=== PATIENT | female | born 1945 | race Caucasian/White ===

== ENCOUNTER 2019-10-05 00:16 | Emergency (ER) | payer OTHER, MEDICAID, SELFPAY ==
[2019-10-05] VITALS (16 sets, daily range): BP systolic 139–156; BP diastolic 56–87; PULSE 81–95; RESP 11–21; TEMP 36.4–36.7; O2SAT 97–100
--- NOTE | ~2019-10-05 | CT_ITS ---
EXAMINATION: CT abdomen pelvis wo con DATE: 10/05/2019 01:12 INDICATION: Generalized abdominal pain. Diarrhea. History of ischemic bowel. (Status post appendectom y and cholecystectomy) TECHNIQUE: Computed tomography (CT) of the abdomen and pelvis was performed without intravenous contr ast. Automated exposure control and iterative reconstruction technique were employed. Exam dose: 150 5.68 mGy-cm total exam DLP. COMPARISON: 03/07/2019 CT abdomen pelvis with IV contrast material FINDINGS: Mild discoid atelectasis or scarring of the lingula. No infiltrate or consolidation in the included lower lung zones. Status post sternotomy. Coronary artery atherosclerosis. No pericardial or pleural effusion. Status post cholecystectomy. No hepatic, splenic, pancreatic, and adrenal space-occupying mass lesion is evident. Small exophytic posterior lower pole right renal cyst. There is no urinary tract calculus or hydroureteronephrosis. There is extensive abdominal aortic calcification including prominent calcifications at the origins o f the celiac and superior mesenteric artery and inferior mesenteric artery. No abdominal aortic aneur ysm. Mild diverticulosis of the left colon; no CT evidence of diverticulitis. No bowel obstruction or intr aperitoneal free air. Status post hysterectomy. The urinary bladder is unremarkable. There is moderate anterior wedge compression fracture deformity and vertebroplasty at L2. Diffuse idi opathic skeletal hyperostosis of the thoracic spine. IMPRESSION: Status post cholecystectomy Status post appendectomy Mild diverticulosis of left colon; no CT evidence of diverticulitis Reviewed, dictated and finalized at [facility]. Reviewed, dictated and finalized at [facility].
--- NOTE | ~2019-10-05 | CT_ITS ---
EXAMINATION: CT brain wo con DATE: 10/05/2019 01:12 INDICATION: Syncopal episode. TECHNIQUE: Computed tomography (CT) of the head was performed without intravenous contrast. The mA wa s adjusted according to patient size. Iterative reconstruction technique was employed. Exam dose: 60 5.33 mGy-cm total exam DLP. COMPARISON: 03/13/2019 MRI brain/brainstem 03/11/2019 and 03/09/2019 CT brain FINDINGS: Bilateral vertebral artery, basilar artery and bilateral carotid siphon internal carotid ar kavitha calcifications. There is nonspecific diminished attenuation of the cerebral white matter, likely due to chronic small vessel ischemic changes. Small chronic left basal ganglia lacunar infarct. There is mild to moderate cerebral atrophy. No intracranial mass lesion or hemorrhage, midline shift or mass effects is evident. No subdural or e pidural hematoma is detected. Included mastoid air cells and paranasal sinuses are normally developed and aerated. Bilateral hyperostosis frontalis interna, which is not likely of any clinical significance. No fractu re or bone destruction of the cranial vault. IMPRESSION: Cerebral atherosclerosis and chronic small vessel ischemic changes of the cerebral white matter Small left basal ganglia lacunar infarct Reviewed, dictated and finalized at [facility]. Reviewed, dictated and finalized at [facility].
--- NOTE | ~2019-10-05 | XR_ITS ---
XR chest 2V DATE: 10/05/2019 01:17 INDICATION: Syncope TECHNIQUE: AP and lateral views COMPARISON: 01/17/2019 PA and lateral chest FINDINGS: Status post sternotomy and probable coronary artery bypass graft surgery. Normal heart size . Aortic calcification. No pulmonary infiltrate or consolidation, pleural effusion or pulmonary vascular congestion or pneumo thorax. Diffuse osteopenia. Vertebroplasty at L2 compression fracture. Diffuse idiopathic skeletal hyperostos is of the thoracic spine. Old healed posterolateral right sixth rib fracture. Surgical clips, right upper quadrant, consistent with cholecystectomy. IMPRESSION: Status post sternotomy/CABG No active cardiopulmonary disease or significant change since 01/17/2019 Reviewed, dictated and finalized at [facility].
--- NOTE | 2019-10-05 00:17 | ED.SYNCOPE ---
HPI - Syncope General Chief Complaint: Syncope Stated Complaint: syncopal Time Seen by Provider: 10/05/19 00:18 Source: patient, EMS and RN notes reviewed Mode of arrival: EMS Limitations: no limitations History of Present Illness HPI narrative: Pt is a 73 y/o female who presents to the ED via EMS with c/o syncopal episode happening this evening. She notes that she has had bad diarrhea recently. Pt states that she was having a BM this evening, when she suddenly became dizzy and lost consciousness. According to EMS, the pt's family states that she has a Hx of similar episodes. Pt also reports diffuse ABD pain, but denies any vomiting, fever, hematuria, dysuria, or CP. MD complaint: loss of consciousness Prodromal symptoms: other (dizziness) Context: during exertion (while having a BM) Current symptoms: abdominal pain (diffuse ABD pain) and other (diarrhea) History: previous syncopal episode Related Data Home Medications Medication Instructions Recorded Confirmed aspirin 325 mg PO DAILY 06/01/19 06/01/19 diltiazem HCl 180 mg PO DAILY 06/01/19 06/01/19 metoprolol succinate 50 mg PO DAILY 06/01/19 06/01/19 pantoprazole [Protonix] 40 mg PO QAM 06/01/19 06/01/19 amitriptyline 100 mg tablet 100 mg PO HS 09/26/19 atorvastatin 20 mg tablet 20 mg PO DAILY 09/26/19 blood sugar diagnostic #10 each 09/26/19 cholecalciferol (vitamin D3) 50 2,000 unit PO DAILY 09/26/19 mcg (2,000 unit) capsule donepezil 10 mg tablet 10 mg PO .daily in evening tablet 09/26/19 insulin glargine 100 unit/mL (3 See Rx Instructions .ROUTE .COMPLEX 09/26/19 mL) subcutaneous pen insulin lispro 100 unit/mL See Rx Instructions .ROUTE .COMPLEX 09/26/19 subcutaneous pen nitroglycerin 0.4 mg sublingual See Rx Instructions .ROUTE 09/26/19 tablet .COMPLEX PRN pen needle, diabetic 31 gauge x #1,200 each 09/26/1912/08 phenazopyridine 100 mg tablet See Rx Instructions .ROUTE .COMPLEX 09/26/19 Allergies Allergy/AdvReac Type Severity Reaction Status Date / Time ranolazine Allergy Intermediate Unknown Verified 10/05/19 01:15 gabapentin Allergy Mild Confusion Verified 10/05/19 01:15 cyclobenzaprine Allergy Unknown Unknown Verified 10/05/19 01:15 fentanyl Allergy Unknown Unknown Verified 10/05/19 01:15 Iodinated Contrast Media Allergy Unknown Unknown Verified 10/05/19 01:15 NSAIDS (Non-Steroidal Allergy Unknown Unknown Verified 10/05/19 01:15 Anti-Inflamma penicillin V Allergy Unknown Unknown Verified 10/05/19 01:15 Penicillins Allergy Unknown Unknown Verified 10/05/19 01:15 Review of Systems Review of Systems: Narrative: CONSTITUTIONAL: Denies fever, chills, or sweats. CARDIOVASCULAR: Denies chest pain, palpitations, or edema. RESPIRATORY: Denies cough or dyspnea. GASTROINTESTINAL: Reports diffuse abdominal pain and diarrhea. Denies nausea or vomiting. GENITOURINARY: Denies dysuria or hematuria. NEUROLOGIC: Denies headache, numbness, or weakness. Reports dizziness and syncope. All systems reviewed & are unremarkable except as noted in HPI and below PMFSH Past Medical History Medical History Anemia Anxiety Back pain CAD (coronary artery disease) Cataracts, bilateral CHF (congestive heart failure) Colitis Crohn's disease Depression Diabetes mellitus DVT (deep venous thrombosis) Fibromyalgia Gastrointestinal ulcer GERD (gastroesophageal reflux disease) History of angina HLD (hyperlipidemia) HTN (hypertension) Hypothyroidism IBS (irritable bowel syndrome) Kidney stones TIA (transient ischemic attack) UTI (urinary tract infection) Surgical History Surgical History History of bladder surgery History of hysterectomy History of right knee joint replacement Hx of appendectomy Hx of CABG Hx of cardiac catheterization Hx of cholecystectomy Hx of spinal surgery Social History Social History Smoking
--- NOTE | 2019-10-05 00:20 | ECG_ITS ---
Measurements Intervals [place] Rate: 87 P: 48 WI: 221 QRS: 44 QRSD: 82 T: 65 QT: 357 QTc: 431 Interpretive Statements SINUS RHYTHM WITH FIRST DEGREE AV BLOCK CANNOT RULE OUT SEPTAL INFARCT, AGE INDETERMINATE BORDERLINE ST-T WAVE ABNORMALITY- LATERAL LEADS ABNORMAL ECG Electronically Signed On 10-05-2019 7:01:16 CDT by Naldo Tamayo D.O.
[2019-10-05] MEDS: ONDANSETRON INJ 4 MG/2 ML VIAL IV PUSH (00:33)
[2019-10-05] MEDS: SODIUM CHLORIDE 0.9% IV 1,000 ML 999 ML IV CONT (00:33)
[2019-10-05 01:03] LABS: Basophils Absolute Auto 0.1 K/mm3 (0.0-0.1); Basophils Percent Auto 0.7 % (0.2-1.2); Eosinophils Absolute Auto 0.3 K/mm3 (0-0.3); Eosinophils Percent Auto 2.5 % (0-4.4); Hematocrit 39.5 % (37.0-47.0); Hemoglobin 12.6 g/dL (12.0-15.0); Immature Granulocyte Absolute 0.09 K/mm3 (0.00-0.031); Immature Granulocyte Percent A 0.7 % (0-0.5); Lymphocytes Absolute Auto 2.57 K/mm3 (0.9-3.2); Lymphocytes Percent Auto 19.1 % (18.3-44.2); Mean Corpuscular HGB Conc 31.9 g/dl (32-36); Mean Corpuscular Hemoglobin 27.5 pg (26-34); Mean Corpuscular Volume 86.1 fl (80-100); Mean Platelet Volume 9.8 fl (7.4-10.4); Monocytes Absolute Auto 0.9 K/mm3 (0.1-0.6); Monocytes Percent Auto 6.8 % (2.6-8.5); Neutrophils Absolute Auto 9.4 K/mm3 (1.3-6.7); Neutrophils Percent Auto 70.2 % (45.5-73.1); Platelet Count Result 415 k/mm3 (150-375); Red Blood Count 4.59 M/mm3 (4.2-5.4); Red Cell Distribution Width 14.6 % (11.5-14.5); White Blood Count 13.4 K/mm3 (4.5-10.0)
[2019-10-05 01:04] LABS: Partial Thromboplastin Time 24.7 SECONDS (22.3-36.8); Prothrombin Time 12.4 Seconds (11.1-14.7)
[2019-10-05 01:06] LABS: Alanine Aminotransferase 19 U/L (4-35); Albumin Level 3.9 g/dL (3.5-5.1); Alkaline Phosphatase 78 U/L (38-126); Aspartate Amino Transferase 26 U/L (14-36); Bilirubin,Total 0.3 mg/dL (0.2-1.3); Blood Urea Nitrogen 14 mg/dL (7-17); Calcium 9.1 mg/dL (8.4-10.2); Carbon Dioxide 32 mmol/L (22-30); Chloride 98 mmol/L (98-107); Estimated CRCL calculation 49 ml/min; Estimated Glomerular Filt Rate 54; Glucose 205 mg/dL (65-105); Lipase 128 U/L (23-300); Potassium 3.7 mmol/L (3.4-5.0); Sodium 135 mmol/L (137-145)
[2019-10-05 01:17] LABS: Troponin I < 0.012 ng/mL (0.000-0.034)
[2019-10-05 01:19] LABS: Add Urine Microscopic? NO; Appearance Urine Clear (Clear); Bilirubin Urine Negative (Negative); Blood Urine Negative (Negative); Color Urine Yellow (Yellow); Glucose Urine UA Negative (Negative); Ketones Urine Negative (Negative); Leukocyte Esterase Ur Negative LEU/UL (Negative); Nitrate Urine Negative (Negative); Protein Urine Negative (Negative); Specific Grav Ur 1.016 (1.001-1.035); Urobilinogen Urine Negative mg/dL (<2.0)
[2019-10-05 03:33] LABS: Troponin I < 0.012 ng/mL (0.000-0.034)
== END 2019-10-05 03:50 | disposition home or self-care (01) ==
PROVIDERS: Emergency Provider Emergency Medicine; PCP Emergency Medicine
DX: R55 Syncope and collapse (principal); K52.9 Noninfective gastroenteritis and colitis, unspecified; Z79.82 Long term (current) use of aspirin; Z79.4 Long term (current) use of insulin; I25.10 Atherosclerotic heart disease of native coronary artery without angina pectoris; I50.9 Heart failure, unspecified; K50.90 Crohn's disease, unspecified, without complications; F32.9 Major depressive disorder, single episode, unspecified; F41.9 Anxiety disorder, unspecified; E11.9 Type 2 diabetes mellitus without complications; Z86.718 Personal history of other venous thrombosis and embolism; M79.7 Fibromyalgia; K21.9 Gastro-esophageal reflux disease without esophagitis; E78.5 Hyperlipidemia, unspecified; I11.0 Hypertensive heart disease with heart failure; E03.9 Hypothyroidism, unspecified; Z87.440 Personal history of urinary (tract) infections; Z86.73 Personal history of transient ischemic attack (TIA), and cerebral infarction without residual deficits; Z95.1 Presence of aortocoronary bypass graft; Z96.651 Presence of right artificial knee joint; H26.9 Unspecified cataract
CPT/HCPCS: 36415; 51701; 70450; 71046; 74176; 80053; 81003; 83690; 84484; 85025; 85610; 85730; 93005; 96361; 96374; 99284; J2405; J7030

== ENCOUNTER 2019-10-24 13:01 | Outpatient (CLI) | payer OTHER, MEDICAID, SELFPAY ==
--- NOTE | ~2019-10-24 | US_ITS ---
EXAMINATION: US thyroid EXAM DATE: 10/24/2019 13:51 INDICATION: Toxic multinodular goiter. TECHNIQUE: Multiple grayscale and Doppler images of the thyroid were obtained (by a technologist who performed the scan) and subsequently reviewed. Individual nodules and recommendations may be reporte d in accordance with TI-RADS system as designated by the 2017 ACR White Paper TI-RADS committee. Comp shannon is made to prior examination from 12/28/2017, 06/16/2013. FINDINGS: The right thyroid lobe measures 2.3 x 6.6 x 2.8 cm, the left measuring 2.2 x 6.2 x 2.4 cm (in 2013 ri ght thyroid lobe measures 6.3 x 2.0 x 2.7, the left 6.2 x 2.6 x 2.5). These measurements are moderate ly enlarged. The isthmus is thickened at 5 mm. There are numerous thyroid nodules again noted. Overal l, the dimensions in thyroid nodules appear not significantly changed. Ultrasound-guided biopsy was recommended on the prior examination in 2017. This nodule was not specif ically measured on today's examination, but appears unchanged compared to prior study where it measur ed 2.3 x 1.2 x 1.7 cm. IMPRESSION: Multinodular goiter, stable compared to 2012. Could consider ultrasound-guided biopsy of the largest right thyroid lobe nodule. Reviewed, dictated and finalized at location [facility]. IMPRESSION: Multinodular goiter, stable compared to 2012. Could consider ultra sound-guided biopsy of the largest right thyroid lobe nodule.
== END 2019-10-24 13:02 | disposition home or self-care (01) ==
PROVIDERS: PCP Emergency Medicine; Visit Provider Internal Medicine Endocrinology, Diabetes & Metabolism
DX: E04.2 Nontoxic multinodular goiter (principal); R49.9 Unspecified voice and resonance disorder; Z80.8 Family history of malignant neoplasm of other organs or systems
CPT/HCPCS: 76536

== ENCOUNTER 2019-12-16 14:42 | Emergency (ER) | payer OTHER, MEDICAID, SELFPAY ==
[2019-12-16 14:52] VITALS: BP 179/95; PULSE 107; RESP 18; TEMP 36.3; O2SAT 99
--- NOTE | 2019-12-16 15:16 | ED.EYEPROB ---
HPI - Eye Problem General Chief complaint: Eye Problems Stated complaint: eye pain Time Seen by Provider: 12/16/19 15:16 Source: patient Mode of arrival: ambulatory Limitations: no limitations History of Present Illness HPI Narrative: Palma Rawls is a 74 yo female with a PMH of a fib, high cholesterol, comes to express care after poking self in 2 days ago brushing her hair. States is painful, puffy when woke up this morning. Sensitive to light Related Data Home Medications Medication Instructions Recorded Confirmed metoprolol succinate 50 mg PO DAILY 06/01/19 12/16/19 atorvastatin 20 mg tablet 20 mg PO DAILY 09/26/19 12/16/19 Allergies Allergy/AdvReac Type Severity Reaction Status Date / Time ranolazine Allergy Intermediate Unknown Verified 12/16/19 15:07 gabapentin Allergy Mild Confusion Verified 12/16/19 15:07 cyclobenzaprine Allergy Unknown Unknown Verified 12/16/19 15:07 fentanyl Allergy Unknown Unknown Verified 12/16/19 15:07 Iodinated Contrast Media Allergy Unknown Unknown Verified 12/16/19 15:07 NSAIDS (Non-Steroidal Allergy Unknown Unknown Verified 12/16/19 15:07 Anti-Inflamma Penicillins Allergy Unknown Unknown Verified 12/16/19 15:07 Review of Systems Review of Systems: Narrative: CONSTITUTIONAL: Denies fever, chills, sweats. EYES: Denies visual changes, redness, discharge. ENT: Denies rhinorrhea, congestion, sore throat, otalgia. Eye pain CARDIOVASCULAR: Denies chest pain, palpitations, edema. RESPIRATORY: Denies dyspnea, wheezing, cough GASTROINTESTINAL: Denies abdominal pain, nausea, vomiting, diarrhea. GENITOURINARY: Denies dysuria, hematuria, abnormal discharge SKIN: Denies rash or itching. NEUROLOGIC: Denies numbness, or focal weakness. PSYCHIATRIC: Denies anxiety or depression. FORMERLY [facility], 1928–1983 Past Medical History Medical History Anemia Anxiety Back pain CAD (coronary artery disease) Cataracts, bilateral CHF (congestive heart failure) Colitis Crohn's disease Depression Diabetes mellitus DVT (deep venous thrombosis) Fibromyalgia Gastrointestinal ulcer GERD (gastroesophageal reflux disease) History of angina HLD (hyperlipidemia) HTN (hypertension) Hypothyroidism IBS (irritable bowel syndrome) Kidney stones TIA (transient ischemic attack) UTI (urinary tract infection) Surgical History Surgical History History of bladder surgery History of hysterectomy History of right knee joint replacement Hx of appendectomy Hx of CABG Hx of cardiac catheterization Hx of cholecystectomy Hx of spinal surgery Family History Family History Father Cerebrovascular accident, Onset Age: 62 Family history of coronary artery disease Family history of diabetes mellitus in first degree relative Family history of alcoholism Acute myocardial infarction, Onset Age: 62 Patient's father is Mother Cerebrovascular accident, Onset Age: 84 Family history of coronary artery disease Family history of diabetes mellitus in first degree relative Asthma Family history of congestive heart failure Family history of heart disease in male family member before age 55 Diabetes mellitus, Onset Age: 84 Family history of gastrointestinal disorder, Onset Age: 84 Family history of cardiovascular disease, Onset Age: 84 Patient's mother is Sibling Family history of thyroid disease Diabetes mellitus Carcinoma of colon Patient's sister is Other Family history of kidney disease Hypertension Social History Social History Smoking status: Never smoker Alcohol intake: never Gender identity (if verbalized by the patient): Female Comments At time of signature, I agree with nursing past medical, surgical, social and family his
== END 2019-12-16 15:35 | disposition home or self-care (01) ==
PROVIDERS: Emergency Provider Nurse Practitioner; PCP Emergency Medicine
DX: S05.01XA Injury of conjunctiva and corneal abrasion without foreign body, right eye, initial encounter (principal); I48.91 Unspecified atrial fibrillation; I25.10 Atherosclerotic heart disease of native coronary artery without angina pectoris; I50.9 Heart failure, unspecified; K50.90 Crohn's disease, unspecified, without complications; E11.9 Type 2 diabetes mellitus without complications; Z86.718 Personal history of other venous thrombosis and embolism; M79.7 Fibromyalgia; K21.9 Gastro-esophageal reflux disease without esophagitis; E78.5 Hyperlipidemia, unspecified; I11.0 Hypertensive heart disease with heart failure; E03.9 Hypothyroidism, unspecified; Z86.73 Personal history of transient ischemic attack (TIA), and cerebral infarction without residual deficits; Z87.440 Personal history of urinary (tract) infections; Z96.651 Presence of right artificial knee joint; Z95.1 Presence of aortocoronary bypass graft; W22.8XXA Striking against or struck by other objects, initial encounter
CPT/HCPCS: 99213; A9270; G0463

== ENCOUNTER 2019-12-23 18:05 | Observation (INO) | payer OTHER, MEDICAID, SELFPAY ==
[2019-12-23] VITALS (7 sets, daily range): BP systolic 127–172; BP diastolic 66–100; PULSE 85–100; RESP 16–25; TEMP 36.1–36.6; O2SAT 96–100; BMI 37.3
--- NOTE | ~2019-12-23 | CT_ITS ---
EXAMINATION: CT abdomen pelvis wo con DATE: 12/23/2019 19:32 INDICATION: Generalized abdominal pain. Syncope. TECHNIQUE: Computed tomography (CT) of the abdomen and pelvis was performed without intravenous contr ast. The dose-length product was 1335.85 mGy-cm. Automated exposure control and iterative reconstruct ion technique were employed. COMPARISON: None. FINDINGS: Lung bases are unremarkable. Heart size normal. No significant pleural or pericardial effus ion. Colonic diverticulosis without evidence for diverticulitis. There are cholecystectomy clips. The re are splenic arterial calcifications. Nonobstructive bowel gas pattern. Tiny fat-containing umbilic al hernia. No abnormal pelvic masses or fluid collections. Status post hysterectomy. There are verteb roplasty changes in L2. There is mild lumbar spondylosis. IMPRESSION: 1. No acute abdominal abnormality. Reviewed, dictated and finalized at location A.
--- NOTE | ~2019-12-23 | XR_ITS ---
XR chest 1V portable 12/23/2019 19:39 Indication: Dizziness. History of stents. Syncope. Procedure: AP view of the chest Comparison: Comparison to multiple prior studies sequentially, with oldest reviewed study dated 09/18. Findings: Status post median sternotomy for CABG. Cardiomegaly. No focal air space disease, pulmonary edema, pleural effusion or suspected pneumothorax. Impression: 1: No acute cardiopulmonary disease. Reviewed, dictated and finalized at location A. Impression: 1: No acute cardiopulmonary disease.
--- NOTE | ~2019-12-23 | CT_ITS ---
EXAMINATION: CT cervical spine wo con DATE: 12/23/2019 19:32 INDICATION: Neck pain after fall TECHNIQUE: Computed tomography (CT) of the cervical spine was performed without intravenous contrast. The dose-length product was 528 mGy-cm. Automated exposure control and iterative reconstruction tech [employer] were employed. COMPARISON: None FINDINGS: There is fusion at C5-6. There are prominent bridging osteophytes anteriorly at C3-4 and C4 -5. No acute fracture or traumatic malalignment. Odontoid process is unremarkable. There is intracran ial atherosclerosis. There is carotid atherosclerosis. No evidence for perched facet. Lung apices are normal. There are facet degenerative changes at C6-7 and C7-T1. IMPRESSION: 1. No acute fracture. Reviewed, dictated and finalized at location A. IMPRESSION: 1. No acute fracture.
--- NOTE | ~2019-12-23 | CT_ITS ---
EXAMINATION: CT brain wo con DATE: 12/23/2019 19:32 INDICATION: Headache after syncope/fall. TECHNIQUE: Computed tomography (CT) of the head was performed without intravenous contrast. The dose- length product was 605.33 mGy-cm. The mA was adjusted according to patient size. Iterative reconstruc tion technique was employed. COMPARISON: None FINDINGS: No acute intracranial hemorrhage, infarction, mass or mass effect. No ventriculomegaly or m idline shift. There are scattered moderate periventricular and subcortical white matter changes, most likely related to small vessel ischemic disease (microangiopathy). Paranasal sinuses and mastoids ar e pneumatized. There is intracranial atherosclerosis. No depressed skull fractures. IMPRESSION: 1. No acute intracranial abnormality. 2: Chronic age-related findings. Reviewed, dictated and finalized at location A.
--- NOTE | 2019-12-23 18:14 | ECG_ITS ---
Measurements Intervals [place] Rate: 85 P: 50 NV: 214 QRS: 43 QRSD: 91 T: 60 QT: 392 QTc: 467 Interpretive Statements SINUS RHYTHM WITH FIRST DEGREE AV BLOCK CANNOT RULE OUT SEPTAL INFARCT, AGE INDETERMINATE BORDERLINE ST-T WAVE ABNORMALITY- LATERAL LEADS BASELINE ARTIFACT- I, II, III ABNORMAL ECG Electronically Signed On 12-24-2019 7:25:31 CDT by Naldo Tamayo D.O.
--- NOTE | 2019-12-23 19:13 | ED.GENADULT ---
HPI - General Adult General Chief complaint: Syncope Stated complaint: syncopal episode Time Seen by Provider: 12/23/19 19:01 Source: RN notes reviewed History of Present Illness HPI narrative: Patient presents emergency department from home for syncopal episode. History is per the patient as well as family called in. Family states he found the patient laying on the ground with apparent syncopal episode. A 10 to get the patient up and again she had a near syncopal episode. Patient states she is been having abdominal pain for the past several days with diarrhea notes mild nausea but denies any vomiting denies any fevers or chills chest pain shortness of breath or any other symptoms. Patient states she had been having constipation and took a laxative several days ago has been having diarrhea since that time Related Data Home Medications Medication Instructions Recorded Confirmed metoprolol succinate 50 mg PO DAILY 06/01/19 12/16/19 atorvastatin 20 mg tablet 20 mg PO DAILY 09/26/19 12/16/19 Allergies Allergy/AdvReac Type Severity Reaction Status Date / Time ranolazine Allergy Intermediate Unknown Verified 12/16/19 15:07 gabapentin Allergy Mild Confusion Verified 12/16/19 15:07 cyclobenzaprine Allergy Unknown Unknown Verified 12/16/19 15:07 fentanyl Allergy Unknown Unknown Verified 12/16/19 15:07 Iodinated Contrast Media Allergy Unknown Unknown Verified 12/16/19 15:07 NSAIDS (Non-Steroidal Allergy Unknown Unknown Verified 12/16/19 15:07 Anti-Inflamma Penicillins Allergy Unknown Unknown Verified 12/16/19 15:07 Review of Systems Review of Systems: Narrative: Gen.: Denies fevers or chills Eyes: Denies eye pain or visual change ENT: Denies congestion Respiratory: Denies shortness of breath or cough CV: Denies chest pain or palpitations reports syncopal episode GI: See HPI denies burning, urgency, frequency or hematuria Musculoskeletal: Denies back pain or muscle pain Neuro: Denies numbness, tingling, weakness or focal weakness Skin: Denies rash Except as documented, all other systems reviewed and negative PMFSH Past Medical History Medical History Anemia Anxiety Back pain CAD (coronary artery disease) Cataracts, bilateral CHF (congestive heart failure) Colitis Crohn's disease Depression Diabetes mellitus DVT (deep venous thrombosis) Fibromyalgia Gastrointestinal ulcer GERD (gastroesophageal reflux disease) History of angina HLD (hyperlipidemia) HTN (hypertension) Hypothyroidism IBS (irritable bowel syndrome) Kidney stones TIA (transient ischemic attack) UTI (urinary tract infection) Social History Social History Smoking status: Never smoker Alcohol intake: never Gender identity (if verbalized by the patient): Female Exam Narrative: Exam Narrative: APPEARANCE: No acute distress, nontoxic, resting in bed EYES: EOMI, Deo HEENT: Normocephalic, atraumatic, oromucosa dry RESPIRATORY: No respiratory distress Clear to auscultation bilaterally with no rhonchi wheezing or rales. CARDIOVASCULAR: Regular rate and rhythm without murmurs rubs or gallops. ABDOMINAL: Soft, nondistended, diffusely tender to palpation no rebound or guarding MUSCULOSKELETAl: Moves all extremities. No clubbing, cyanosis or edema. NEURO: Awake and alert x 3. Following commands, speech normal, no focal deficits SKIN:: Warm, dry. No rashes lesions or abrasions PSYCHIATRIC: Normal affect/mood, Course Course Emergency Course: Discussed with Dr. Mcgill presentation work-up. Agrees with admission at this time Discussed with patient and family results of workup and diagnosis. Discussed need for admission. Patient and family understand and agree to current treatment plan Vital Signs Vital signs: Vital Signs Temperature 97 F L 12/23/19 18:05 Pulse Rate 85 12/23/19 18:05 Respiratory Rate 24 H 12/23/19 18:05 Blood Pr
[2019-12-23 19:23] LABS: Basophils Absolute Auto 0.1 K/mm3 (0.0-0.1); Basophils Percent Auto 0.4 % (0.2-1.2); Eosinophils Absolute Auto 0.2 K/mm3 (0-0.3); Eosinophils Percent Auto 1.3 % (0-4.4); Hematocrit 42.1 % (37.0-47.0); Hemoglobin 13.4 g/dL (12.0-15.0); Immature Granulocyte Absolute 0.05 K/mm3 (0.00-0.031); Immature Granulocyte Percent A 0.4 % (0-0.5); Lymphocytes Absolute Auto 1.63 K/mm3 (0.9-3.2); Mean Corpuscular HGB Conc 31.8 g/dl (32-36); Mean Corpuscular Volume 84.9 fl (80-100); Mean Platelet Volume 9.4 fl (7.4-10.4); Monocytes Absolute Auto 0.9 K/mm3 (0.1-0.6); Monocytes Percent Auto 6.5 % (2.6-8.5); Neutrophils Absolute Auto 10.8 K/mm3 (1.3-6.7); Neutrophils Percent Auto 79.4 % (45.5-73.1); Platelet Count Result 367 k/mm3 (150-375); Red Blood Count 4.96 M/mm3 (4.2-5.4); Red Cell Distribution Width 14.6 % (11.5-14.5); White Blood Count 13.6 K/mm3 (4.5-10.0)
[2019-12-23 19:34] LABS: INR 0.9; Prothrombin Time 11.9 Seconds (11.1-14.7)
[2019-12-23 19:35] LABS: Partial Thromboplastin Time 24.4 SECONDS (22.3-36.8)
[2019-12-23] MEDS: SODIUM CHLORIDE 0.9% IV 1,000 ML 999 ML IV CONT (20:17)
[2019-12-23 20:25] LABS: Alanine Aminotransferase 15 U/L (4-35); Alkaline Phosphatase 104 U/L (38-126); Aspartate Amino Transferase 22 U/L (14-36); Bilirubin,Total 0.5 mg/dL (0.2-1.3); Blood Urea Nitrogen 16 mg/dL (7-17); Calcium 9.1 mg/dL (8.4-10.2); Carbon Dioxide 32 mmol/L (22-30); Chloride 99 mmol/L (98-107); Estimated CRCL calculation 53 ml/min; Estimated Glomerular Filt Rate > 60; Glucose 160 mg/dL (65-105); Lipase 71 U/L (23-300); Potassium 3.8 mmol/L (3.4-5.0); Sodium 137 mmol/L (137-145)
[2019-12-23 20:36] LABS: Troponin I < 0.012 ng/mL (0.000-0.034)
[2019-12-23 20:42] LABS: Add Urine Microscopic? NO; Appearance Urine Clear (Clear); Bilirubin Urine Negative (Negative); Blood Urine Negative (Negative); Color Urine Straw (Yellow); Glucose Urine UA Negative (Negative); Ketones Urine Negative (Negative); Leukocyte Esterase Ur Negative LEU/UL (Negative); Mucus Urine Rare /lpf; Nitrate Urine Negative (Negative); Protein Urine Negative (Negative); Urobilinogen Urine Negative mg/dL (<2.0); WBC Urine 0-3 /hpf
[2019-12-23] MEDS: ONDANSETRON INJ 4 MG/2 ML VIAL IV PUSH (22:12)
--- NOTE | 2019-12-23 23:21 | PC.NURSE ---
This patient, Osvaldo Rawls, was admitted to Medical Room 254-01. Patient/family oriented to hospital policies and general routines including ID bracelet, bed and alarms, visiting hours, pain management, procedures, bathroom and other care routines, personal items, smoking policy, room service/diet, and visiting hours. Valuables list has been completed. Information on how to activate the Rapid Response Team has been discussed. Patient/Family are encouraged to report perceived risks to care and to ask questions if they do not understand what they are told or what they should do.
[2019-12-24] VITALS (10 sets, daily range): BP systolic 123–160; BP diastolic 62–80; PULSE 90–109; RESP 20; TEMP 36.1–36.8; O2SAT 99
[2019-12-24] MEDS: SODIUM CHLORIDE 0.9% IV 1,000 ML 100 ML IV CONT ×3 (00:31→20:13)
[2019-12-24 03:26] LABS: Glucose Point of Care 138 (65-105)
[2019-12-24 04:01] LABS: Basophils Percent Auto 0.2 % (0.2-1.2); Eosinophils Absolute Auto 0.1 K/mm3 (0-0.3); Eosinophils Percent Auto 1.6 % (0-4.4); Hematocrit 35.8 % (37.0-47.0); Hemoglobin 11.6 g/dL (12.0-15.0); Immature Granulocyte Absolute 0.02 K/mm3 (0.00-0.031); Immature Granulocyte Percent A 0.2 % (0-0.5); Lymphocytes Absolute Auto 2.55 K/mm3 (0.9-3.2); Lymphocytes Percent Auto 29.4 % (18.3-44.2); Mean Corpuscular HGB Conc 32.4 g/dl (32-36); Mean Corpuscular Hemoglobin 27.2 pg (26-34); Mean Platelet Volume 9.1 fl (7.4-10.4); Monocytes Absolute Auto 0.6 K/mm3 (0.1-0.6); Monocytes Percent Auto 6.7 % (2.6-8.5); Neutrophils Absolute Auto 5.4 K/mm3 (1.3-6.7); Neutrophils Percent Auto 61.9 % (45.5-73.1); Platelet Count Result 324 k/mm3 (150-375); Red Blood Count 4.26 M/mm3 (4.2-5.4); Red Cell Distribution Width 14.4 % (11.5-14.5); White Blood Count 8.7 K/mm3 (4.5-10.0)
[2019-12-24 04:12] LABS: Blood Urea Nitrogen 13 mg/dL (7-17); Calcium 8.3 mg/dL (8.4-10.2); Carbon Dioxide 26 mmol/L (22-30); Chloride 102 mmol/L (98-107); Estimated CRCL calculation 66 ml/min; Estimated Glomerular Filt Rate > 60; Glucose 174 mg/dL (65-105); Potassium 3.4 mmol/L (3.4-5.0); Sodium 136 mmol/L (137-145)
[2019-12-24 04:23] LABS: Troponin I < 0.012 ng/mL (0.000-0.034)
[2019-12-24 08:00] LABS: Glucose Point of Care 122 (65-105)
[2019-12-24 11:58] LABS: Glucose Point of Care 175 (65-105)
--- NOTE | 2019-12-24 13:38 | PM.IMHP ---
H&P: HPI History of Present Illness Chief complaint: syncopal episode, diarrhea Narrative: Osvaldo Rawls is a 74 year old female with DM here for syncopal episode. Patient has a long history of syncopal episodes ususally 3-4x/year without clear etiology. Patient states she has 'fecal nerve' irritation at times when having constipation and diarrhea or with straining. Dtr states the patient's symptoms related to vasovagal syncope. Last episode was in August. Spoke with dtr who states patient has been in bed for the past 24 hours prior to the hospitalization. Dtr feels patient has these episodes after being in bed and is concerned she is taking too much medication. Patient states she takes meds as prescribed. No recent medication changes. Patient with abdominal pain and constipation about a week ago. She took senna 2 tablets on December 18 than 2 tablets again the following day. She is also taking prune juice. She is having normal bowel movements initially but then began to have diarrhea 2 days ago. No melena or hematochezia. She has been having nausea but no vomiting. Eating normally. Weight stable. No fever chills. No chest pain or palpitations recently. Patient has little memory of the event. Daughter states patient was found on the ground in the bathroom. They will get her up and stand for a short period time but patient's legs buckled on they lowered her to the ground again. EMS was called. Patient denies any chest pain or palpitations prior to entering the bathroom. Patient brought to the emergency room for evaluation. In the emergency room, Patient is hemodynamically stable. Her systolic blood pressure did drop from 162 laying down to [address], cervical spine CT, abdomen pelvis CT and chest x-ray all were unrevealing. She was complaining of dysuria and pressure her lower abdomen but urinalysis here was negative. Glucose here was 160. Review of Systems Review of Systems: Narrative: Patient does choke on liquids and is on special diet. She states that she has difficulty swallowing because of her thyroid megaly. She also has speech impediment for the past 2 years for unclear reasons. No hx of CVA or seizure. Glucose well controlled and checks her glucose 4-5x/day. Glucose normally runs less than 180. Daughter however states glucose is poorly controlled at home. All systems reviewed & are unremarkable except as noted in HPI and below PMFSH Past Medical History Medical History Anemia Anxiety Back pain CAD (coronary artery disease) Cataracts, bilateral CHF (congestive heart failure) Colitis Crohn's disease Depression Diabetes mellitus DVT (deep venous thrombosis) Fibromyalgia Gastrointestinal ulcer GERD (gastroesophageal reflux disease) History of angina HLD (hyperlipidemia) HTN (hypertension) Hypothyroidism IBS (irritable bowel syndrome) Kidney stones TIA (transient ischemic attack) UTI (urinary tract infection) Surgical History Surgical History History of bladder surgery History of hysterectomy History of right knee joint replacement Hx of appendectomy Hx of CABG Hx of cardiac catheterization Hx of cholecystectomy Hx of spinal surgery Family History Family History Father Cerebrovascular accident, Onset Age: 62 Family history of coronary artery disease Family history of diabetes mellitus in first degree relative Family history of alcoholism Acute myocardial infarction, Onset Age: 62 Patient's father is Mother Cerebrovascular accident, Onset Age: 84 Family history of coronary artery disease Family history of diabetes mellitus in first degree relative Asthma Family history of congestive heart failure Family history of heart disease in male family member before age 55 Diabetes mellit
[2019-12-24] MEDS: FUROSEMIDE 40 MG TABLET PO (16:16)
[2019-12-24] MEDS: ALPRAZOLAM 0.5 MG TABLET PO (16:18)
[2019-12-24 16:39] LABS: Glucose Point of Care 161 (65-105)
[2019-12-24] MEDS: INSULIN ASPART (*BKC) 100 UNITS/ML 15 UNITS SUB-Q (17:03)
[2019-12-24] MEDS: AMITRIPTYLINE HCL 25 MG TABLET 50 MG PO (20:14)
[2019-12-24] MEDS: INSULIN GLARGINE (*BKC) 100 UNITS/ML 45 UNITS SUB-Q (20:18)
[2019-12-24 21:26] LABS: Glucose Point of Care 201 (65-105)
[2019-12-25] VITALS (11 sets, daily range): BP systolic 108–167; BP diastolic 54–76; PULSE 64–101; RESP 16–20; TEMP 36–36.4; O2SAT 99–100
--- NOTE | 2019-12-25 | ECHO_ITS ---
Patient Info Name: Osvaldo Rawls Age: 74 years : 1945 Gender: Female Ht: 64 in Wt: 217 lbs BSA: 2.15 m2 HR: 99 bpm BP: 160 / 80 mmHg Heart Rhythm: Sinus Rhythm Technical Quality: Good Exam Date: 12/25/2019 8:20 AM Exam Location: [facility] Patient Status: Inpatient Admit Date: 12/23/2019 Staff Ordering Physician: Stuart Lucero MD Telephone Order Clerk Room Service: David Shepherd, TEDCS, RT Attending Provider: Stuart Lucero MD Exam Type: CA echo doppler color flow Study Info Indications R55 - Syncope and collapse Complete two-dimensional, color flow and Doppler transthoracic echocardiogram is performed. Summary 1. Left ventricular chamber dimension is normal. 2. Left ventricular systolic function is normal, estimated at 60-65%. 3. Right ventricular chamber dimension is normal. 4. Left atrial chamber dimension is moderately enlarged. 5. No significant valvular disease. 6. Doppler calculations were reported as suggesting mild aortic stenosis. The valve however can be clearly seen to exhibit normal leaflet separation and is obviously not stenotic. Left Ventricle Left ventricular chamber dimension is normal. Left ventricular systolic function is normal, estimated at 60-65%. There is mild concentric increased left ventricular wall thickness. The left ventricular diastolic function is grade I diastolic dysfunction. Right Ventricle Right ventricular chamber dimension is normal. Left Atria Left atrial chamber dimension is moderately enlarged. Right Atria Right atrial chamber dimension is normal. Aortic Valve The aortic valve is trileaflet. There is mild aortic valve sclerosis. There is no aortic valve stenosis. Pulmonic Valve The pulmonic valve is not well visualized. Mitral Valve The mitral valve has normal leaflets. Tricuspid Valve The tricuspid valve leaflets are normal. Pericardium/Pleural The pericardium appears normal. Aorta The aortic root size at the sinus of Valsalva is normal. Left Ventricular Outflow Tract Name Value Normal LVOT 2D LVOT Diameter 2.1 cm LVOT Doppler LVOT Peak Gradient 2 mmHg LVOT Mean Gradient 1 mmHg LVOT VTI 13 cm LVOT VTI/AV VTI Ratio 0.3 LVOT Stroke Volume 44 ml LVOT CO 3.7 l/min LVOT CI 1.7 l/min/m2 Mitral Valve Name Value Normal MV Doppler MV Decel [place] 753 cm/s2 MV PHT 30 ms MV Area (PHT) 7.4 cm2 4.0-5.0 MV Diastolic Function MV E Peak Velocity 77 cm/s MV A Peak Velocity
[2019-12-25] MEDS: SODIUM CHLORIDE 0.9% IV 1,000 ML 100 ML IV CONT (06:11)
[2019-12-25] MEDS: ATORVASTATIN 20 MG TABLET PO (07:59)
[2019-12-25] MEDS: PANTOPRAZOLE 40 MG TABLET 80 MG PO (08:00)
[2019-12-25] MEDS: metFORMIN HCL 500 MG TABLET 1000 MG PO (08:00)
[2019-12-25] MEDS: CLOPIDOGREL BISULFATE 75 MG TABLET PO (08:00)
[2019-12-25] MEDS: ASPIRIN 325 MG TABLET PO (08:00)
[2019-12-25] MEDS: FUROSEMIDE 40 MG TABLET PO ×2 (08:00→18:24)
[2019-12-25] MEDS: PRAVASTATIN SODIUM 10 MG TABLET PO (08:01)
[2019-12-25] MEDS: ENOXAPARIN 40 MG/0.4 ML SYRINGE SUB-Q (08:01)
[2019-12-25] MEDS: ALPRAZOLAM 0.5 MG TABLET PO ×3 (08:04→18:24)
--- NOTE | 2019-12-25 08:34 | PM.IMPN ---
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 Spoke with the patient and she feels she is ready for discharge. Spoke with family and they were updated with the results. I had spoken with Milka on the day of admission with patient permission to clarify details. Spoke with Primitivo on the day of discharge and she was upset that Milka provided information that may not be accurate. I reassured Primitivo that any information provided by family was confirmed by patient if possible. Explain to Primitivo that due to HIPPA, I would never speak to family without patient permission which was provided to me by the patient. Patient was alert and oriented when she provided this permission. Apologized if this caused any family conflict. Patient states she did not care if I spoke with Milka and was not sure why Primitivo was upset. Explained to patient that she should change the contact list if she desires. She voices understanding Subjective Date/time seen: 12/25/19 08:34 Interval history: 74yo female here for syncopal episode. She slept okay last night. Eating okay., No diarrhea (no BM since admission). Was having palpitations this morning. No CP or SOB or cough. No n/v. Exam Narrative: Exam Narrative: AF 167/76 Gen - NARD Chest - CTA bilaterally, nml RR CV - RRR S1/S2 with a 2/6 systolic murmur USB. Tele showing showing no significant dysrhythmias Abd -soft. Obese. NT. +BS Ext -no pedal edema Neuro - mildly dysarthric speech Psych - Nml mood and affect Skin - Warm and dry Objective Data Vital Signs Vital Signs: Vital Signs - 24 hr 12/24/19 12:00 12/24/19 14:00 12/24/19 16:00 Temperature 98.1 F Pulse Rate 109 H 103 H 102 H Respiratory Rate 20 Blood Pressure 149/66 H Pulse Oximetry 99 12/24/19 20:00 12/24/19 21:19 12/24/19 22:00 Temperature 98.2 F 98.2 F Pulse Rate 100 101 H 101 H Respiratory Rate 20 20 Blood Pressure 160/66 H 160/80 H Pulse Oximetry 99 99 12/25/19 00:00 12/25/19 04:00 12/25/19 05:42 Temperature 96.8 F L Pulse Rate 101 H 92 100 Respiratory Rate 20 Blood Pressure 167/76 H Pulse Oximetry 99 Intake/Output Intake/Output: Intake & Output 12/22/19 12/23/19 12/24/19 12/25/19 23:59 23:59 23:59 23:59 Intake Total 1000 3340 1450 Output Total 1600 1750 Balance 1000 1740 -300 Meds/Results Medications: Active Medications Generic Name Dose Route Start Last Admin Trade Name Freq PRN Reason Stop Dose Admin Alprazolam 0.5 mg 12/24/19 17:00 12/25/19 08:04 Xanax PO 0.5 mg TID YAHIR Administration Amitriptyline HCl 50 mg 12/24/19 21:00 12/24/19 20:14 Elavil PO 50 mg HS YAHIR Administration Aspirin 325 mg 12/25/19 09:00 12/25/19 08:00 Aspirin PO 325 mg DAILY [facility] Administration Atorvastatin Calcium 20 mg 12/25/19 09:00 12/25/19 07:59 Lipitor PO 20 mg DAILY [facility] Administration Clopidogrel Bisulfate 75 mg 12/25/19 09:00 12/25/19 08:00 Plavix PO 75 mg DAILY [facility] Admi
[2019-12-25 08:56] LABS: Blood Urea Nitrogen 7 mg/dL (7-17); Calcium 8.1 mg/dL (8.4-10.2); Carbon Dioxide 28 mmol/L (22-30); Chloride 104 mmol/L (98-107); Estimated CRCL calculation 80 ml/min; Estimated Glomerular Filt Rate > 60; Glucose 124 mg/dL (65-105); Sodium 139 mmol/L (137-145)
[2019-12-25] MEDS: METOPROLOL SUCCINATE EXT REL 50 MG TABCR PO (09:17)
[2019-12-25 09:34] LABS: Hemoglobin A1C 8.5 % (<5.7)
[2019-12-25 09:37] LABS: Glucose Point of Care 124 (65-105)
[2019-12-25] MEDS: INSULIN ASPART (*BKC) 100 UNITS/ML 15 UNITS SUB-Q (09:37)
[2019-12-25] MEDS: POTASSIUM CHLORIDE 20 MEQ TABLET 40 MEQ PO (13:09)
--- NOTE | 2019-12-25 14:33 | PC.NURSE ---
12/25/19-Pt refused glucose gel. Patient given the 4 oz of apple juice and her lunch tray
[2019-12-25 15:37] LABS: Glucose Point of Care 73 (65-105)
[2019-12-25 17:06] LABS: Glucose Point of Care 69 (65-105)
--- NOTE | 2019-12-25 17:08 | PM.DS ---
DS: Discharge Diagnosis Discharge Diagnosis (1) Syncope: Code(s): R55 - Syncope and collapse Status: Acute Assessment and Plan: This appears to be long standing with frequent hospitalizations without clear etiology. Could be from orthostatic HoTN or hypoglycemia. She may have been straining on the toilet. She was educated about not straining. Head CT showing no acute intracranial process. Cervical spine CT showed no acute fractures. Echocardiogram showed normal systolic function with EF of 60% and mild aortic stenosis. She did have grade 1 diastolic dysfunction noted. We decreased her Elavil dose. She still had orthostasis on repeat with a systolic blood pressure 134 lying dropping to 108 standing. She was asymptomatic from this however. Recommended to patient and family to follow up with to have the orthostatic blood pressures rechecked with the plan to continue to wean off of Elavil as she tolerates. (2) Orthostatic hypotension: Code(s): I95.1 - Orthostatic hypotension Status: Acute Assessment and Plan: Patient's systolic BP dropped from 162 lying to 127 standing on admission. She treated with IV fluids. We decreased to Elavil. She work with therapy. She continued to have orthostasis but was asymptomatic. She was instructed to rise slowly from a lying or sitting position and pause before standing or walking. She voices understanding of this. (3) Diarrhea: Code(s): R19.7 - Diarrhea, unspecified Status: Acute Assessment and Plan: Patient has intermittent constipation and diarrhea. She has listed IBS and Crohn's disease in her past medical history and is followed by Dr Phillips. CT A/P here does not show any acute findings so doubt Crohn's flare. Diarrhea resolved. Diet was started and advanced. She tolerated this well. Recommended a bowel regimen in the form of MiraLax to ensure 1 soft bowel movement a day in the hopes of preventing her from straining. 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 We resumed her Lantus and Novolog. We performed AccuCheks covering with sliding scale. Hypoglycemia protocol available as needed. She did have normal sugars but she may be having lobe glucose values at times which could be the etiology of her syncopal episode. Instructed patient and family to monitor closely. Continue current insulin regiment for now. (5) HTN (hypertension): Code(s): I10 - Essential (primary) hypertension Status: Acute Assessment and Plan: BP elevated at times during her hospital course. We resumed her Metoprolol and Diltiazem. Recommend weaning off Elavil 1st but may need to decrease or stop some of her antihypertensive medications if she continues to have orthostasis. DS: Summary Hospital Course Reason for hospitalization: 74yo female her for syncopal episode. Please see H&P for details. Hospital Course: As above Time Spent with Patient Time attestation: Total time spent providing and/or coordinating discharge services: 35 minutes Time spent: Greater than 30 minutes Specific discharge activities: discussed with patient in detail and with family ( with patient permission) Exam Narrative: Exam Narrative: AF 167/76 Gen - NARD Chest - CTA bilaterally, nml RR CV - RRR S1/S2 with a 2/6 systolic murmur USB. Tele showing showing no significant dysrhythmias Abd -soft. Obese. NT. +BS Ext -no pedal edema Neuro - mildly dysarthric speech Psych - Nml mood and affect Skin - Warm and dry DS: Data Data Completed an
[2019-12-25 17:59] LABS: Glucose Point of Care 116 (65-105)
== END 2019-12-25 19:05 | disposition home or self-care (01) ==
LOC: ANHED 22:15 → ANH2MED 22:20
PROVIDERS: Emergency Medicine; Admitting Provider Internal Medicine; Emergency Provider Emergency Medicine; PCP Emergency Medicine; Visit Provider Internal Medicine
DX: R55 Syncope and collapse (principal); R19.7 Diarrhea, unspecified; E11.9 Type 2 diabetes mellitus without complications; Z79.4 Long term (current) use of insulin; I50.9 Heart failure, unspecified; I11.0 Hypertensive heart disease with heart failure; E78.5 Hyperlipidemia, unspecified; Z86.718 Personal history of other venous thrombosis and embolism; Z86.73 Personal history of transient ischemic attack (TIA), and cerebral infarction without residual deficits; K50.90 Crohn's disease, unspecified, without complications; Z95.1 Presence of aortocoronary bypass graft; I25.10 Atherosclerotic heart disease of native coronary artery without angina pectoris; Z96.651 Presence of right artificial knee joint
CPT/HCPCS: 36415; 51701; 70450; 71045; 72125; 74176; 80048; 80076; 81003; 83036; 83690; 84484; 85025; 85610; 85730; 93005; 93306; 96361; 96372; 96374; 97161; 97165; 99285; A9270; G0378; J1650; J1815; J2405; J7030

== ENCOUNTER 2020-01-29 14:48 | Emergency (ER) | payer OTHER, MEDICAID, SELFPAY ==
--- NOTE | ~2020-01-29 | XR_ITS ---
XR hip LT min 3V w AP pelvis 01/29/2020 15:46 Indication: Left hip pain after fall Procedure: AP pelvis and 3 views left hip Comparison: 01/24/2018 Findings: Pelvic rings are intact. Mild symmetric osteoarthritis of the hips. No acute fracture or tr aumatic malalignment. No focal soft tissue abnormality. There are vascular calcifications. There is l ower lumbar spondylosis. Sacral foramen are symmetric. Impression: 1: Mild osteoarthritis of the left hip. Reviewed, dictated and finalized at location A. Impression: 1: Mild osteoarthritis of the left hip.
--- NOTE | ~2020-01-29 | CT_ITS ---
EXAMINATION: CT lumbar spine wo con DATE: 01/29/2020 15:42 INDICATION: Low back injury. TECHNIQUE: Computed tomography (CT) of the lumbar spine was performed without intravenous contrast. A utomated exposure control and iterative reconstruction technique were employed. The dose-length produ ct was 1052.44 mGy-cm. COMPARISON: None FINDINGS: There is 3 degrees dextrocurvature of lumbar spine. There is a chronic compression fracture of L2 with changes of vertebroplasty. Intervertebral disc heights are normal. The following disc lev els are specifically discussed: L1-L2: The disc does not extend beyond the endplate margin. There is moderate right and mild left fac et joint osteoarthritis. There is mild right neural foraminal stenosis. There is no central canal tony nosis. L2-L3: The disc does not extend beyond the endplate margin. There is mild bilateral facet joint osteo arthritis. There is no neural foraminal stenosis. There is no central canal stenosis. L3-L4: The disc is bulging. There is mild bilateral facet joint osteoarthritis. There is mild left ne ural foraminal stenosis. There is no central canal stenosis. L4-L5: The disc is bulging. There is mild bilateral facet joint osteoarthritis. There is mild bilater al neural foraminal stenosis. There is mild central canal stenosis. L5-S1: The disc is bulging. There is severe bilateral facet joint osteoarthritis. There is mild bilat eral neural foraminal stenosis. There is mild central canal stenosis. IMPRESSION: 1. No acute fracture. 2. Mild lumbar spondylosis. Reviewed, dictated and finalized at location A.
[2020-01-29 14:51] VITALS: BP 141/62; PULSE 69; RESP 16; TEMP 36.6; O2SAT 99
--- NOTE | 2020-01-29 15:22 | ED.LOWEXIN ---
HPI - Extremity Injury (Lower) General Chief Complaint: Extremity Injury, Lower <ALEX Miller Last Filed: 01/29/20 16:07> Stated Complaint: Left Hip Pain <ALEX Miller Last Filed: 01/29/20 16:07> Time Seen by Provider: 01/29/20 14:54 <ALEX Miller Last Filed: 01/29/20 16:07> Source: patient <ALEX Miller Last Filed: 01/29/20 16:07> Mode of arrival: ambulatory <ALEX Miller Last Filed: 01/29/20 16:07> Limitations: no limitations <ALEX Miller Last Filed: 01/29/20 16:07> History of Present Illness HPI Narrative: Patient is a 74-year-old female who presents to emergency department for evaluation of injuries related to a fall that occurred Wednesday patient notes she was in the shower and slipped and injured the back and left hip patient notes aching pain of the left hip that intermittently radiates down the leg patient has been taking [id number] medication and taking it easy but continues to have pain. Patient on arrival to emergency department is in the room in no distress. Patient lives at home with family <ALEX Miller Last Filed: 01/29/20 16:07> Related Data Home Medications: Home Medications Medication Instructions Recorded Confirmed atorvastatin 20 mg tablet 20 mg PO DAILY 09/26/19 12/23/19 Lantus Solostar U-100 Insulin 45 unit SUBCUT HS 12/23/19 12/23/19 alprazolam 0.5 mg TID 12/23/19 12/23/19 aspirin 325 mg DAILY 12/23/19 12/23/19 insulin aspart U-100 [Novolog 15 unit SUBCUT AC 12/23/19 12/23/19 Flexpen U-100 Insulin] nitroglycerin 0.4 mg SUBLINGUAL PRN PRN 12/23/19 12/23/19 pantoprazole 80 mg PO DAILY 12/23/19 12/23/19 pravastatin 10 mg PO DAILY 12/23/19 12/23/19 <ALEX Miller Last Filed: 01/29/20 16:07> Allergies/Adverse Reactions: Allergies Allergy/AdvReac Type Severity Reaction Status Date / Time ranolazine Allergy Intermediate Unknown Verified 01/29/20 15:04 gabapentin Allergy Mild Confusion Verified 01/29/20 15:04 cyclobenzaprine Allergy Unknown Unknown Verified 01/29/20 15:04 fentanyl Allergy Unknown Unknown Verified 01/29/20 15:04 Penicillins Allergy Unknown Unknown Verified 12/23/19 22:51 <Esteban King PA-C - Last Filed: 01/29/20 16:07> Review of Systems Review of Systems: All systems reviewed & are unremarkable except as noted in HPI and below <Esteban King PA-C - Last Filed: 01/29/20 16:07> [facility] Past Medical History Medical History: Medical History Anemia Anxiety Back pain CAD (coronary artery disease) Cataracts, bilateral CHF (congestive heart failure) Colitis Crohn's disease Depression Diabetes mellitus DVT (deep venous thrombosis) Fibromyalgia Gastrointestinal ulcer GERD (gastroesophageal reflux disease) History of angina HLD (hyperlipidemia) HTN (hypertension) Hypothyroidism IBS (irritable bowel syndrome) Kidney stones TIA (transient ischemic attack) UTI (urinary tract infection) <Esteban King PA-C - Last Filed: 01/29/20 16:07> Surgical History Surgical History: Surgical History History of bladder surgery History of hysterectomy History of right knee joint replacement Hx of appendectomy Hx of CABG Hx of cardiac catheterization Hx of cholecystectomy Hx of spinal surgery <Esteban King PA-C - Last Filed: 01/29/20 16:07> Family History Family History: Family History Father Cerebrovascular accident, Onset Age: 62 Family history of coronary artery disease Family history of diabetes mellitus in first degree relative Family history of alcoholism Acute myocardial infarction, Onset Age: 62 Patient's father is Mother Cerebrovascular accident, Onset Age: 84 Family history of coronary
== END 2020-01-29 16:29 | disposition home or self-care (01) ==
PROVIDERS: Emergency Provider Emergency Medicine; PCP Emergency Medicine
DX: M25.552 Pain in left hip (principal); I25.10 Atherosclerotic heart disease of native coronary artery without angina pectoris; I50.9 Heart failure, unspecified; K50.90 Crohn's disease, unspecified, without complications; E11.9 Type 2 diabetes mellitus without complications; Z86.718 Personal history of other venous thrombosis and embolism; M79.7 Fibromyalgia; K21.9 Gastro-esophageal reflux disease without esophagitis; E78.5 Hyperlipidemia, unspecified; Z87.442 Personal history of urinary calculi; Z86.73 Personal history of transient ischemic attack (TIA), and cerebral infarction without residual deficits; Z87.440 Personal history of urinary (tract) infections; Z79.82 Long term (current) use of aspirin; Z79.4 Long term (current) use of insulin; Z96.651 Presence of right artificial knee joint; Z95.1 Presence of aortocoronary bypass graft; M47.816 Spondylosis without myelopathy or radiculopathy, lumbar region; M16.12 Unilateral primary osteoarthritis, left hip
CPT/HCPCS: 72131; 73502; 99284

== ENCOUNTER 2020-04-09 16:52 | Outpatient (CLI) | payer OTHER, MEDICAID, SELFPAY ==
--- NOTE | ~2020-04-09 | MM_ITS ---
EXAMINATION: MM screening brandon BI w glen HISTORY: Screening mammogram TECHNIQUE: Craniocaudal and mediolateral oblique 3-D tomosynthesis images were obtained and synthetic 2-D images were generated. CAD analysis was submitted and interpreted. COMPARISON: 06/2009 bilateral digital screening mammogram BREAST PARENCHYMAL COMPOSITION: The breasts are almost entirely fatty. FINDINGS: Scattered benign breast calcifications and arterial calcifications. There is no evidence of suspicious mass, calcification, or architectural distortion to suggest malignancy in either breast. There has been no suspicious interval change. IMPRESSION: 1. No mammographic evidence of malignancy. 2. Recommend routine screening mammography in one year. BI-RADS Category 2: Benign finding(s). Reviewed, dictated and finalized at location A.
== END 2020-04-09 16:53 | disposition home or self-care (01) ==
PROVIDERS: PCP Emergency Medicine; Visit Provider Emergency Medicine
DX: Z12.31 Encounter for screening mammogram for malignant neoplasm of breast (principal)
CPT/HCPCS: 77063; 77067

== ENCOUNTER 2020-04-29 15:01 | Emergency (ER) | payer OTHER, MEDICAID, SELFPAY ==
[2020-04-29 15:07] VITALS: BP 174/62; PULSE 74; RESP 12; TEMP 36.4; O2SAT 100
--- NOTE | 2020-04-29 15:14 | ED.FEMALEGU ---
HPI - Female Genitourinary General Chief complaint: Urogenital-Female Stated complaint: Pos UTI Time Seen by Provider: 04/29/20 15:14 Source: patient Mode of arrival: ambulatory Limitations: no limitations History of Present Illness HPI Narrative: 74 y/o female. PMH includes: See Chart. Presents to ED today with acute complaints of urinary frequency, urgency, as well as burning sensation when she voids for past 72 hours. She reports a history including frequent UTI . Denies fever, chills, abdominal pain, flank pain, gross hematuria, N/V. She reports last time this happened I took CIPRO and it worked . No additional acute c/o upon PE. MD elicited complaint: dysuria and UTI Related Data Home Medications Medication Instructions Recorded Confirmed atorvastatin 20 mg tablet 20 mg PO DAILY 09/26/19 04/29/20 aspirin 325 mg DAILY 12/23/19 04/29/20 furosemide 40 mg tablet See Rx Instructions .ROUTE 02/07/20 04/29/20 .COMPLEX tablet insulin aspart U-100 [Novolog unit SUBCUT 04/29/20 04/29/20 Flexpen U-100 Insulin] insulin glargine [Lantus Solostar SUBCUT 04/29/20 U-100 Insulin] metformin 500 mg PO DAILY 04/29/20 04/29/20 metoprolol succinate 50 mg PO DAILY 04/29/20 04/29/20 Allergies Allergy/AdvReac Type Severity Reaction Status Date / Time ranolazine Allergy Intermediate Unknown Verified 04/29/20 15:12 gabapentin Allergy Mild Confusion Verified 04/29/20 15:12 cyclobenzaprine Allergy Unknown Unknown Verified 04/29/20 15:12 fentanyl Allergy Unknown Unknown Verified 04/29/20 15:12 Penicillins Allergy Unknown Unknown Verified 04/29/20 15:12 Review of Systems Review of Systems: Narrative: CONSTITUTIONAL: Denies fever, chills, sweats. EYES: Denies visual changes, redness, discharge. ENT: Denies rhinorrhea, congestion, sore throat, otalgia. CARDIOVASCULAR: Denies chest pain, palpitations, edema. RESPIRATORY: Denies dyspnea, wheezing, cough GASTROINTESTINAL: Denies abdominal pain, nausea, vomiting, diarrhea. GENITOURINARY: Denies dysuria, hematuria, abnormal discharge SKIN: Denies rash or itching. MUSCULOSKELETAL: Denies acute back pain, joint pain, or myalgia. NEUROLOGIC: Denies numbness, or focal weakness. PSYCHIATRIC: Denies anxiety or depression. All systems reviewed & are unremarkable except as noted in HPI and below Constitutional: Constitutional: Reports as per [facility] Past Medical History Medical History Anemia Anxiety Back pain CAD (coronary artery disease) Cataracts, bilateral CHF (congestive heart failure) Colitis Crohn's disease Depression Diabetes mellitus DVT (deep venous thrombosis) Fibromyalgia Gastrointestinal ulcer GERD (gastroesophageal reflux disease) History of angina HLD (hyperlipidemia) HTN (hypertension) Hypothyroidism IBS (irritable bowel syndrome) Kidney stones TIA (transient ischemic attack) UTI (urinary tract infection) Social History Social History Social History: Lives at home with her , dtr, grandson and 2 great grandchildren. Lifelong nonsmoker. Denies alcohol or drug use. Full code. Nominates her to be the individual would make medical decisions for her. Smoking status: Never smoker Alcohol intake: never Substance use: never Substance use type: does not use Gender identity (if verbalized by the patient): Female Spiritual care concerns: No Exam Narrative: Exam Narrative: GENERAL: This is a well-nourished, well-developed patient, in no apparent distress. HEAD: normocephalic, atraumatic. EYES: PERRL. Sclera clear/white. Vision is grossly intact. EARS: External ears normal, auditory canals clear and without drainage, TMs normal without perforation. Hearing grossly intact. NOSE: External nose normal with no obvious nasal discharge, nares without redness, no rhinorrhea. THROAT: Mucous membranes moist, posterior pharynx
== END 2020-04-29 15:35 | disposition home or self-care (01) ==
PROVIDERS: Emergency Provider Nurse Practitioner Adult Health; PCP Emergency Medicine
DX: N39.0 Urinary tract infection, site not specified (principal); H26.9 Unspecified cataract; I11.0 Hypertensive heart disease with heart failure; I50.9 Heart failure, unspecified; K50.90 Crohn's disease, unspecified, without complications; E11.9 Type 2 diabetes mellitus without complications; Z86.718 Personal history of other venous thrombosis and embolism; K21.9 Gastro-esophageal reflux disease without esophagitis; E78.5 Hyperlipidemia, unspecified; Z86.73 Personal history of transient ischemic attack (TIA), and cerebral infarction without residual deficits; I25.110 Atherosclerotic heart disease of native coronary artery with unstable angina pectoris; Z79.82 Long term (current) use of aspirin
CPT/HCPCS: 81003; 87077; 87086; 87088; 87186; 99213; G0463

== ENCOUNTER 2020-08-17 21:31 | Emergency (ER) | payer OTHER, MEDICAID, SELFPAY ==
[2020-08-17 21:33] VITALS: BP 150/76; PULSE 94; RESP 16; TEMP 36.1; O2SAT 100
--- NOTE | 2020-08-17 21:38 | ECG_ITS ---
Measurements Intervals [place] Rate: 96 P: 49 MD: 211 QRS: 38 QRSD: 79 T: 74 QT: 344 QTc: 435 Interpretive Statements SINUS RHYTHM WITH FIRST DEGREE AV BLOCK NONSPECIFIC T-WAVE ABNORMALITY- HIGH LATERAL LEADS BASELINE ARTIFACT- I, III, AVL, AVF ABNORMAL ECG Electronically Signed On 08-20-2020 12:46:55 [employer]TER by Naldo Tamayo D.O.
[2020-08-17 22:23] LABS: Basophils Absolute Auto 0.1 K/mm3 (0.0-0.1); Basophils Percent Auto 0.7 % (0.2-1.2); Eosinophils Absolute Auto 0.2 K/mm3 (0-0.3); Eosinophils Percent Auto 2.4 % (0-4.4); Hematocrit 37.3 % (37.0-47.0); Hemoglobin 11.9 g/dL (12.0-15.0); Immature Granulocyte Absolute 0.03 K/mm3 (0.00-0.031); Immature Granulocyte Percent A 0.3 % (0-0.5); Lymphocytes Absolute Auto 3.08 K/mm3 (0.9-3.2); Lymphocytes Percent Auto 31.4 % (18.3-44.2); Mean Corpuscular HGB Conc 31.9 g/dl (32-36); Mean Corpuscular Hemoglobin 26.2 pg (26-34); Mean Corpuscular Volume 82.2 fl (80-100); Monocytes Absolute Auto 0.8 K/mm3 (0.1-0.6); Monocytes Percent Auto 7.8 % (2.6-8.5); Neutrophils Absolute Auto 5.6 K/mm3 (1.3-6.7); Neutrophils Percent Auto 57.4 % (45.5-73.1); Platelet Count Result 381 k/mm3 (150-375); Red Blood Count 4.54 M/mm3 (4.2-5.4); White Blood Count 9.8 K/mm3 (4.5-10.0)
--- NOTE | 2020-08-17 22:24 | ED.GENADULT ---
HPI - General Adult General Chief complaint: Unspecified Stated complaint: tingling in lips Time Seen by Provider: 08/17/20 21:39 Source: patient Mode of arrival: EMS Limitations: no limitations History of Present Illness HPI narrative: 74 years old white female, history of diabetes, presented to the ED with fluctuation of blood glucose today, runs at the low side. 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 Patient is insulin-dependent diabetic, received her antidiabetes medication this morning. Patient denies any fever, chills, nausea, vomiting, or any other symptoms. Patient have tremendous amount of stress lately, her son tried to kill himself 3 days ago, her grandson lives with her lately. Related Data Home Medications Medication Instructions Recorded Confirmed atorvastatin 20 mg tablet 20 mg PO DAILY 09/26/19 04/29/20 aspirin 325 mg DAILY 12/23/19 04/29/20 furosemide 40 mg tablet See Rx Instructions .ROUTE 02/07/20 04/29/20 .COMPLEX tablet insulin aspart U-100 [Novolog unit SUBCUT 04/29/20 04/29/20 Flexpen U-100 Insulin] metoprolol succinate 50 mg PO DAILY 04/29/20 04/29/20 Allergies Allergy/AdvReac Type Severity Reaction Status Date / Time ranolazine Allergy Intermediate Unknown Verified 04/29/20 15:12 gabapentin Allergy Mild Confusion Verified 04/29/20 15:12 cyclobenzaprine Allergy Unknown Unknown Verified 04/29/20 15:12 fentanyl Allergy Unknown Unknown Verified 04/29/20 15:12 Penicillins Allergy Unknown Unknown Verified 04/29/20 15:12 Review of Systems Review of Systems: Narrative: CONSTITUTIONAL: Denies fever, chills, or sweats. EYES: Denies visual changes, redness, or discharge. ENT: Denies rhinorrhea, congestion, sore throat, or otalgia. CARDIOVASCULAR: Denies chest pain, palpitations, or edema. RESPIRATORY: Denies cough or dyspnea. GASTROINTESTINAL: Denies abdominal pain, nausea, vomiting, or diarrhea. GENITOURINARY: Denies dysuria or hematuria. SKIN: Denies rash or itching. MUSCULOSKELETAL: Denies back pain, joint pain, or myalgia. NEUROLOGIC: Denies headache, numbness, or weakness. PSYCHIATRIC: Denies anxiety or depression. [facility] Past Medical History Medical History (Updated 08/17/20 @ 23:05 by Logan Marroquin MD) Anemia Anxiety Back pain CAD (coronary artery disease) Cataracts, bilateral CHF (congestive heart failure) Colitis Crohn's disease Depression Diabetes mellitus DVT (deep venous thrombosis) Fibromyalgia Gastrointestinal ulcer GERD (gastroesophageal reflux disease) History of angina HLD (hyperlipidemia) HTN (hypertension) Hypothyroidism IBS (irritable bowel syndrome) Kidney stones TIA (transient ischemic attack) UTI (urinary tract infection) Surgical History Surgical History History of bladder surgery History of hysterectomy History of right knee joint replacement Hx of appendectomy Hx of CABG Hx of cardiac catheterization Hx of cholecystectomy Hx of spinal surgery Family History Family History Father Cerebrovascular accident, Onset Age: 62 Family history of coronary artery disease Family history of diabetes mellitus in first degree relative Family history of alcoholism Acute myocardial infarction, Onset Age: 62 Patient's father is Mother Cerebrovascular accident, Onset Age: 84 Family history of coronary artery disease Family history of diabetes mellitus in first degree relative Asthma Family history of congestive heart failure Family history of heart disease in male family member before age 55 Diabetes mellitus, Onset Age: 84 Family history of gastrointestinal disorder, Onset Age: 84 Family history of cardiovascular disease, Onset Age: 84 Patient's mother is Sibling Family history of thyroid disease Diabetes mellitus Carcinoma of colon
[2020-08-17 22:27] LABS: Add Urine Microscopic? YES; Appearance Urine Clear (Clear); Bacteria Urine Trace /hpf; Bilirubin Urine Negative (Negative); Blood Urine Negative (Negative); Color Urine Colorless (Yellow); Glucose Urine UA Negative (Negative); Ketones Urine Negative (Negative); Leukocyte Esterase Ur Trace LEU/UL (Negative); Nitrate Urine Negative (Negative); Protein Urine Negative (Negative); Specific Grav Ur 1.006 (1.001-1.035); Squamous Epithelial Cell Urine Rare /hpf (Few); Urobilinogen Urine Negative mg/dL (<2.0)
[2020-08-17 22:35] LABS: Alanine Aminotransferase 16 U/L (4-35); Alkaline Phosphatase 78 U/L (38-126); Anion Gap 9 mmol/L (8-16); Aspartate Amino Transferase 26 U/L (14-36); Bilirubin,Total 0.4 mg/dL (0.2-1.3); Blood Urea Nitrogen 16 mg/dL (7-17); Calcium 9.4 mg/dL (8.4-10.2); Carbon Dioxide 28 mmol/L (22-30); Chloride 102 mmol/L (98-107); Estimated CRCL calculation 55 ml/min; Estimated Glomerular Filt Rate > 60; Glucose 174 mg/dL (65-105); Potassium 3.9 mmol/L (3.4-5.0); Sodium 139 mmol/L (137-145)
[2020-08-17 23:17] VITALS: BP 154/86; PULSE 79; RESP 16; TEMP 36.3; O2SAT 98
== END 2020-08-17 23:18 | disposition home or self-care (01) ==
PROVIDERS: Emergency Provider Emergency Medicine; PCP Family Medicine
DX: E11.649 Type 2 diabetes mellitus with hypoglycemia without coma (principal); D64.9 Anemia, unspecified; I44.0 Atrioventricular block, first degree; R94.31 Abnormal electrocardiogram [ECG] [EKG]; I25.10 Atherosclerotic heart disease of native coronary artery without angina pectoris; I50.9 Heart failure, unspecified; I11.0 Hypertensive heart disease with heart failure; K50.90 Crohn's disease, unspecified, without complications; M79.7 Fibromyalgia; K21.9 Gastro-esophageal reflux disease without esophagitis; E78.5 Hyperlipidemia, unspecified; E03.9 Hypothyroidism, unspecified; Z86.718 Personal history of other venous thrombosis and embolism; Z87.442 Personal history of urinary calculi; Z86.73 Personal history of transient ischemic attack (TIA), and cerebral infarction without residual deficits; Z87.440 Personal history of urinary (tract) infections; Z79.4 Long term (current) use of insulin; Z79.82 Long term (current) use of aspirin; Z96.651 Presence of right artificial knee joint; Z95.1 Presence of aortocoronary bypass graft
CPT/HCPCS: 36415; 80053; 81001; 85025; 93005; 99283

== ENCOUNTER 2020-09-09 15:01 | Emergency (ER) | payer OTHER, MEDICAID, SELFPAY ==
--- NOTE | ~2020-09-09 | XR_ITS ---
EXAMINATION: XR foot RT min 3V DATE: 09/09/2020 15:18 INDICATION: Pain post injury to the right second toe TECHNIQUE: Dorsoplantar, 2 oblique and lateral views of the right foot were obtained. COMPARISON: None. FINDINGS: Nondisplaced transverse extra articular fracture at the distal neck of the right second proximal phal anx with 40 degree lateral angulation. Otherwise normal alignment in the right foot. No other fractur es identified. Mild polyarticular osteoarthritis at the calcaneocuboid, first metatarsophalangeal and multiple tarsal metatarsal and interphalangeal joints. Small plantar calcaneal spur. Diffuse osteope akhil. Scattered vascular calcifications. IMPRESSION: 1. Lateral angulation of an extra articular fracture at the neck of the right second proximal phalanx . Reviewed, dictated and finalized at location A. SPORTATION PROGRAM DIRECTOR IMPRESSION: 1. Lateral angulation of an extra articular fracture at the neck of the right s econd proximal phalanx.
--- NOTE | 2020-09-09 15:17 | ED.EPISTAXIS ---
HPI - Epistaxis General Chief complaint: Epistaxis Stated complaint: nose bleed Source: patient and RN notes reviewed Limitations: no limitations History of Present Illness HPI Narrative: The diabetic patient-- on multiple meds including antiplatelets [which she skipped today]-- presents with nosebleed. Patient states she has a shorter, 3-hour history of only left nares nosebleed that is mild to moderate, minimally better with compression or elevation-- as she is been on full dose aspirin and Plavix for years, for cardiac stents. She also comments she is on antibiotics for sinusitis , and recently released from hospital for CHF, rule out myocardial infarction. Her meds were not changed and she got Fe injection; She is pending follow-up, including with iron infusion. No fever, increased chronic lightheadedness, pain, injury, presyncope. She declines referral to hospital [higher level testing or treatment], and desires intervention here sergio becaue of inclement weather. Patient also mentions she awoke last night due to symptoms and probably struck furnishings with her right toe, resulting in pain and visible angulation of her second toe. She does not recall the exact injury, as she has neuropathy from diabetes. No bleeding, significant swelling; symptoms mild , worse with activity better with rest or elevation Related Data Home Medications Medication Instructions Recorded Confirmed atorvastatin 20 mg tablet 20 mg PO DAILY 09/26/19 09/09/20 aspirin 325 mg DAILY 12/23/19 09/09/20 furosemide 40 mg tablet 40 mg PO BID tablet 02/07/20 09/09/20 insulin aspart U-100 [Novolog See Protocol SUBCUT BIDWMEAL 04/29/20 09/09/20 Flexpen U-100 Insulin] metoprolol succinate 50 mg PO DAILY 04/29/20 09/09/20 clopidogrel 75 mg PO DAILY 09/09/20 09/09/20 Allergies Allergy/AdvReac Type Severity Reaction Status Date / Time ranolazine Allergy Intermediate Unknown Verified 09/09/20 15:12 gabapentin Allergy Mild Confusion Verified 09/09/20 15:12 cyclobenzaprine Allergy Unknown Unknown Verified 09/09/20 15:12 fentanyl Allergy Unknown Unknown Verified 09/09/20 15:12 Penicillins Allergy Unknown Unknown Verified 09/09/20 15:12 Review of Systems Review of Systems: Narrative: General/Constitutional: No weight loss,fever Eyes: N0: Redness,discharge Ears/Nose/Throat: REPORTS epistaxis,no ear discharge Respiratory: Denies: Hemoptysis Gastrointestinal: No Vomiting, Bleeding-rectal Skin: No Lumps, eruption Neurologic: No Focal Weakness,Sz Hematologic: Denies: Petechiae/Purpura Psychiatric: No: Suicida ideationl All Other Systems: Reviewed and Negative [facility] Past Medical History Medical History (Updated 09/10/20 @ 00:01 by Silvino Macias) Anemia Anxiety Back pain CAD (coronary artery disease) Cataracts, bilateral CHF (congestive heart failure) Colitis Crohn's disease Depression Diabetes mellitus DVT (deep venous thrombosis) Fibromyalgia Gastrointestinal ulcer GERD (gastroesophageal reflux disease) History of angina HLD (hyperlipidemia) HTN (hypertension) Hypothyroidism IBS (irritable bowel syndrome) Kidney stones TIA (transient ischemic attack) UTI (urinary tract infection) Surgical History Surgical History History of bladder surgery History of hysterectomy History of right knee joint replacement Hx of appendectomy Hx of CABG Hx of cardiac catheterization Hx of cholecystectomy Hx of spinal surgery Family History Family History Father Cerebrovascular accident, Onset Age: 62 Family history of coronary artery disease Family history of diabetes mellitus in first degree relative Family history of alcoholism Acute myocardial infarction, Onset Age: 62 Patient's father is Mother Cerebrovascular accident, Onset Age: 84 Family history of coronary artery disease Family history of diabetes m
[2020-09-09 15:18] VITALS: BP 146/75; PULSE 129; RESP 16; TEMP 35.4; O2SAT 100
[2020-09-09] MEDS: SILVER NITRATE (*SP) STICK 1 EACH TOPICAL (15:35)
== END 2020-09-09 15:45 | disposition home or self-care (01) ==
PROVIDERS: Emergency Provider Emergency Medicine
DX: R04.0 Epistaxis (principal); S92.511A Displaced fracture of proximal phalanx of right lesser toe(s), initial encounter for closed fracture; X58.XXXA Exposure to other specified factors, initial encounter; H26.9 Unspecified cataract; I11.0 Hypertensive heart disease with heart failure; I50.9 Heart failure, unspecified; K50.90 Crohn's disease, unspecified, without complications; F32.9 Major depressive disorder, single episode, unspecified; E11.42 Type 2 diabetes mellitus with diabetic polyneuropathy; Z86.718 Personal history of other venous thrombosis and embolism; M79.7 Fibromyalgia; K21.9 Gastro-esophageal reflux disease without esophagitis; I25.110 Atherosclerotic heart disease of native coronary artery with unstable angina pectoris; E78.5 Hyperlipidemia, unspecified; E03.9 Hypothyroidism, unspecified; Z86.73 Personal history of transient ischemic attack (TIA), and cerebral infarction without residual deficits; Z96.651 Presence of right artificial knee joint; Z95.1 Presence of aortocoronary bypass graft
CPT/HCPCS: 30901; 28515; 73630; 99215; G0463

== ENCOUNTER 2020-09-13 16:15 | Emergency (ER) | payer OTHER, MEDICAID, SELFPAY ==
[2020-09-13] VITALS (37 sets, daily range): BP systolic 60–214; BP diastolic 34–119; PULSE 91–111; RESP 7–24; TEMP 36.7; O2SAT 93–100
--- NOTE | ~2020-09-13 | CT_ITS ---
EXAMINATION: CT abdomen pelvis w con EXAM DATE: 09/13/2020 21:42 INDICATION: Abdominal pain. TECHNIQUE: Spiral CT of the abdomen and pelvis was performed following intravenous injection of 100 m L Omnipaque 350. Axial, coronal and sagittal images were reviewed. The dose-length product (DLP) fo r this examination was 1247.79 mGy-cm. The exposure was tailored according to patient size (auto mA exposure control), and iterative reconstruction (ASIR) was used as additional dose reduction techniqu e. Comparison is made to prior examination from 12/23/2019. FINDINGS: The liver, spleen, adrenal glands and pancreas are unremarkable. There are cholecystectomy clips. Portal and splenic veins are patent. Kidneys enhance symmetrically. There is no hydronephr osis. Lobular contours to both kidneys. The uterus is not identified and has likely been surgically resected. The bladder is unremarkable. There is no retroperitoneal or pelvic lymphadenopathy. The re is moderate scattered arteriosclerotic disease. The appendix is normal. Small duodenal lipoma measuring about 1 cm. There is expected amount of col onic stool. There is mild scattered colonic diverticulosis. There is no adjacent inflammatory change to suggest diverticulitis. No free intraperitoneal gas. The heart is normal in size. There are no pericardial or pleural effusions. The lung bases are unremarkable. There are no osteoblastic or os teolytic lesions identified. Mild to moderate L2 compression fracture which has been treated with pastora tebroplasty. IMPRESSION: 1. No acute intra-abdominal findings. 2. Mild scattered colonic diverticulosis. 3. Small duodenal lipoma. Reviewed, dictated and finalized at location A. ER HOOKER
--- NOTE | ~2020-09-13 | XR_ITS ---
EXAMINATION: XR chest 2V EXAM DATE: 09/13/2020 18:23 INDICATION: Syncope. History of CHF, hypertension. TECHNIQUE: Frontal and lateral projections of the chest obtained and reviewed. Comparison is made to prior examination from 12/23/2019. FINDINGS: Sternotomy wires are present without findings to suggest sternal dehiscence. The lungs are clear. There are no pleural effusions. The cardiomediastinal silhouette is within normal limits. There is no pneumothorax suspected. There is aortic arteriosclerosis. Old right rib fracture. There are bony degenerative changes. Upper lumbar vertebroplasty. There are cholecystectomy clips. IMPRESSION: No acute cardiopulmonary findings. Reviewed, dictated and finalized at location A. ASTONE INSTALLER
--- NOTE | 2020-09-13 17:57 | ECG_ITS ---
Measurements Intervals [place] Rate: 101 P: 55 OK: 172 QRS: 47 QRSD: 98 T: 93 QT: 348 QTc: 451 Interpretive Statements SINUS TACHYCARDIA CANNOT RULE OUT SEPTAL INFARCT, AGE INDETERMINATE BORDERLINE ST-T WAVE ABNORMALITY- ANTEROLAT/HIGH LAT LEADS ABNORMAL ECG Electronically Signed On 09-14-2020 7:49:56 TOWER TECHNICIAN by Naldo Tamayo D.O.
--- NOTE | 2020-09-13 19:15 | ED.GENADULT ---
HPI - General Adult General Chief complaint: Weakness Stated complaint: weakness Time Seen by Provider: 09/13/20 19:08 History of Present Illness HPI narrative: Patient is a 74-year-old female who presents to emergency department with chief complaint of abdominal pain. Patient reports that she has history of Crohn's disease and has history of diabetes and has been noticing that she has been having worsening of pain in her epigastric region radiating down to her abdomen reports that she has had episodes of hypoglycemia reported that she is generally felt unwell. Patient denies chest pain denies shortness of breath states that she has been feeling overall weak Related Data Home Medications Medication Instructions Recorded Confirmed atorvastatin 20 mg tablet 20 mg PO DAILY 09/26/19 09/09/20 aspirin 325 mg DAILY 12/23/19 09/09/20 furosemide 40 mg tablet 40 mg PO BID tablet 02/07/20 09/09/20 insulin aspart U-100 [Novolog See Protocol SUBCUT BIDWMEAL 04/29/20 09/09/20 Flexpen U-100 Insulin] metoprolol succinate 50 mg PO DAILY 04/29/20 09/09/20 clopidogrel 75 mg PO DAILY 09/09/20 09/09/20 Allergies Allergy/AdvReac Type Severity Reaction Status Date / Time ranolazine Allergy Intermediate Unknown Verified 09/09/20 15:12 gabapentin Allergy Mild Confusion Verified 09/09/20 15:12 cyclobenzaprine Allergy Unknown Unknown Verified 09/09/20 15:12 fentanyl Allergy Unknown Unknown Verified 09/09/20 15:12 Penicillins Allergy Unknown Unknown Verified 09/09/20 15:12 Review of Systems Review of Systems: Narrative: A 10 system review of systems was completed on the patient and is negative except for what is stated in the HPI. Nursing and ancillary documentation was reviewed. [facility] Past Medical History Medical History (Updated 09/13/20 @ 22:56 by Stuart Cr MD) Anemia Anxiety Back pain CAD (coronary artery disease) Cataracts, bilateral CHF (congestive heart failure) Colitis Crohn's disease Depression Diabetes mellitus DVT (deep venous thrombosis) Fibromyalgia Gastrointestinal ulcer GERD (gastroesophageal reflux disease) History of angina HLD (hyperlipidemia) HTN (hypertension) Hypothyroidism IBS (irritable bowel syndrome) Kidney stones TIA (transient ischemic attack) UTI (urinary tract infection) Surgical History Surgical History History of bladder surgery History of hysterectomy History of right knee joint replacement Hx of appendectomy Hx of CABG Hx of cardiac catheterization Hx of cholecystectomy Hx of spinal surgery Family History Family History Father Cerebrovascular accident, Onset Age: 62 Family history of coronary artery disease Family history of diabetes mellitus in first degree relative Family history of alcoholism Acute myocardial infarction, Onset Age: 62 Patient's father is Mother Cerebrovascular accident, Onset Age: 84 Family history of coronary artery disease Family history of diabetes mellitus in first degree relative Asthma Family history of congestive heart failure Family history of heart disease in male family member before age 55 Diabetes mellitus, Onset Age: 84 Family history of gastrointestinal disorder, Onset Age: 84 Family history of cardiovascular disease, Onset Age: 84 Patient's mother is Sibling Family history of thyroid disease Diabetes mellitus Carcinoma of colon Patient's sister is Other Family history of kidney disease Hypertension Social History Social History Social History: Lives at home with her , dtr, grandson and 2 great grandchildren. Lifelong nonsmoker. Denies alcohol or drug use. Full code. Nominates her to be the individual would make medical decisions for her. [facility]ok
[2020-09-13] MEDS: MORPHINE SULFATE (*CRX) 4 MG/ML INJ IV PUSH (19:37)
[2020-09-13] MEDS: ONDANSETRON INJ 4 MG/2 ML VIAL IV PUSH (19:37)
[2020-09-13 19:53] LABS: Basophils Absolute Auto 0.1 K/mm3 (0.0-0.1); Basophils Percent Auto 0.6 % (0.2-1.2); Eosinophils Percent Auto 0.2 % (0-4.4); Hematocrit 39.7 % (37.0-47.0); Immature Granulocyte Absolute 0.06 K/mm3 (0.00-0.031); Immature Granulocyte Percent A 0.5 % (0-0.5); Lymphocytes Absolute Auto 2.87 K/mm3 (0.9-3.2); Lymphocytes Percent Auto 22.8 % (18.3-44.2); Mean Corpuscular HGB Conc 32.7 g/dl (32-36); Mean Corpuscular Hemoglobin 26.4 pg (26-34); Mean Corpuscular Volume 80.7 fl (80-100); Mean Platelet Volume 9.1 fl (7.4-10.4); Monocytes Absolute Auto 0.7 K/mm3 (0.1-0.6); Monocytes Percent Auto 5.9 % (2.6-8.5); Neutrophils Absolute Auto 8.8 K/mm3 (1.3-6.7); Platelet Count Result 448 k/mm3 (150-375); Red Blood Count 4.92 M/mm3 (4.2-5.4); Red Cell Distribution Width 15.6 % (11.5-14.5); White Blood Count 12.6 K/mm3 (4.5-10.0)
[2020-09-13 20:02] LABS: Alanine Aminotransferase 20 U/L (4-35); Albumin Level 4.5 g/dL (3.5-5.1); Alkaline Phosphatase 99 U/L (38-126); Anion Gap 13 mmol/L (8-16); Aspartate Amino Transferase 35 U/L (14-36); Bilirubin,Total 0.4 mg/dL (0.2-1.3); Blood Urea Nitrogen 27 mg/dL (7-17); Calcium 9.7 mg/dL (8.4-10.2); Carbon Dioxide 25 mmol/L (22-30); Chloride 97 mmol/L (98-107); Estimated CRCL calculation 33 ml/min; Estimated Glomerular Filt Rate 34; Glucose 156 mg/dL (65-105); Lipase 230 U/L (23-300); Potassium 3.5 mmol/L (3.4-5.0); Sodium 135 mmol/L (137-145)
[2020-09-13 20:15] LABS: Troponin I < 0.012 ng/mL (0.000-0.034)
[2020-09-13] MEDS: SODIUM CHLORIDE 0.9% IV 1,000 ML 999 ML IV CONT (21:50)
[2020-09-13 22:11] LABS: Lactic Acid Reflex 2.7 mmol/L (0.7-2.1)
[2020-09-14 00:56] LABS: Reflex Lactic Acid Yes or No Add Lactic
== END 2020-09-13 23:28 | disposition home or self-care (01) ==
PROVIDERS: Emergency Medicine; Emergency Provider Emergency Medicine
DX: R10.84 Generalized abdominal pain (principal); K50.90 Crohn's disease, unspecified, without complications; I25.10 Atherosclerotic heart disease of native coronary artery without angina pectoris; I50.9 Heart failure, unspecified; E11.9 Type 2 diabetes mellitus without complications; Z86.718 Personal history of other venous thrombosis and embolism; M79.7 Fibromyalgia; K21.9 Gastro-esophageal reflux disease without esophagitis; E78.5 Hyperlipidemia, unspecified; I11.0 Hypertensive heart disease with heart failure; Z87.442 Personal history of urinary calculi; Z86.73 Personal history of transient ischemic attack (TIA), and cerebral infarction without residual deficits; Z87.440 Personal history of urinary (tract) infections; Z86.2 Personal history of diseases of the blood and blood-forming organs and certain disorders involving the immune mechanism; Z95.1 Presence of aortocoronary bypass graft; Z96.651 Presence of right artificial knee joint; R00.0 Tachycardia, unspecified; R94.31 Abnormal electrocardiogram [ECG] [EKG]; Z79.4 Long term (current) use of insulin; Z79.82 Long term (current) use of aspirin
CPT/HCPCS: 36415; 71046; 74177; 80053; 83605; 83690; 84484; 85025; 93005; 96361; 96374; 96375; 99284; J2270; J2405; J7030; Q9967

== ENCOUNTER 2020-09-18 14:58 | Emergency (ER) | payer OTHER, SELFPAY ==
--- NOTE | ~2020-09-18 | XR_ITS ---
EXAMINATION: XR foot RT min 3V DATE: 09/18/2020 16:39 INDICATION: Right foot injury and pain. TECHNIQUE: 4 views of right foot were obtained. COMPARISON: Right foot radiographs 09/09/2020 FINDINGS: Again seen is oblique fracture of neck of second proximal phalanx. The distal fracture frag ment demonstrates dorsal displacement, but is not well visualized on the lateral view. There is mild osteoarthritis of first metatarsophalangeal joint and mild to moderate osteoarthrosis of most of the interphalangeal joints. There is moderate posttraumatic osteoarthritis of fifth proximal interphalang eal joint. There is an enthesophyte at plantar aspect of calcaneal tuberosity. IMPRESSION: 1. Subacute oblique fracture of neck of second proximal phalanx. 2. Polyarticular osteoarthritis. Reviewed, dictated and finalized at location A. STRA[employer]ENER
[2020-09-18 16:04] VITALS: BP 134/54; PULSE 68; RESP 18; TEMP 36.5; O2SAT 100
--- NOTE | 2020-09-18 18:24 | PC.NURSE ---
Pt states feels as if her blood sugar might be low, as she hasn't eaten but an egg for lunch. Blood sugar checked.
--- NOTE | 2020-09-18 18:31 | PC.NURSE ---
Note pt's blood sugar 48mg/dl. Pt given orange juice po and crackers and peanut butter.
[2020-09-18 18:32] LABS: Glucose Point of Care 48 (65-105)
--- NOTE | 2020-09-18 18:58 | PC.NURSE ---
Patient provided with juice, crackers, and peanut butter.
[2020-09-18 19:22] LABS: Glucose Point of Care 63 (65-105)
[2020-09-18] MEDS: GLUCOSE ORAL GEL 15 GM OF GLUCSE IN 37.5 GM TUBE PO (19:23)
[2020-09-18 19:40] VITALS: BP 123/55; PULSE 73; RESP 18; TEMP 36.5; O2SAT 97
--- NOTE | 2020-09-18 20:31 | ED.GENADULT ---
HPI - General Adult General Chief complaint: Extremity Injury, Lower Stated complaint: Right Toe Pain Time Seen by Provider: 09/18/20 19:02 Source: patient Mode of arrival: ambulatory Limitations: no limitations History of Present Illness HPI narrative: Patient presents for evaluation of right toe pain. Patient states her toes were jam taped together as it was suspected that she fractured her toe. She states that she was told to leave the dressing in place and not to bother it so she has but it has caused increased pain and swelling. She states she also notices redness around the bandage. Patient has diabetes. Patient denies any fever, chills, nausea, vomiting, drainage. Related Data Home Medications Medication Instructions Recorded Confirmed atorvastatin 20 mg tablet 20 mg PO DAILY 09/26/19 09/09/20 aspirin 325 mg DAILY 12/23/19 09/09/20 furosemide 40 mg tablet 40 mg PO BID tablet 02/07/20 09/09/20 insulin aspart U-100 [Novolog See Protocol SUBCUT BIDWMEAL 04/29/20 09/09/20 Flexpen U-100 Insulin] metoprolol succinate 50 mg PO DAILY 04/29/20 09/09/20 clopidogrel 75 mg PO DAILY 09/09/20 09/09/20 dapagliflozin [Farxiga] mg 09/18/20 ezetimibe mg 09/18/20 icosapent ethyl [Vascepa] g PO 09/18/20 semaglutide [Ozempic] mg SUBCUT 09/18/20 Allergies Allergy/AdvReac Type Severity Reaction Status Date / Time ranolazine Allergy Intermediate Unknown Verified 09/18/20 19:45 gabapentin Allergy Mild Confusion Verified 09/18/20 19:45 cyclobenzaprine Allergy Unknown Unknown Verified 09/18/20 19:45 fentanyl Allergy Unknown Unknown Verified 09/18/20 19:45 Review of Systems Review of Systems: Narrative: CONSTITUTIONAL: Denies fever, chills, or sweats. EYES: Denies visual changes, redness, or discharge. ENT: Denies rhinorrhea, congestion, sore throat, or otalgia. CARDIOVASCULAR: Denies chest pain, palpitations, or edema. RESPIRATORY: Denies cough or dyspnea. GASTROINTESTINAL: Denies abdominal pain, nausea, vomiting, or diarrhea. GENITOURINARY: Denies dysuria or hematuria. SKIN: Reports pain, swelling, erythema denies rash or itching. MUSCULOSKELETAL: Reports toe pain denies back pain, joint pain, or myalgia. NEUROLOGIC: Denies headache, numbness, dizziness, or weakness. PSYCHIATRIC: Denies anxiety or depression. [facility] Past Medical History Medical History (Updated 09/18/20 @ 20:44 by Ramez Barkley PA-C) Anemia Anxiety Back pain CAD (coronary artery disease) Cataracts, bilateral CHF (congestive heart failure) Colitis Crohn's disease Depression Diabetes mellitus DVT (deep venous thrombosis) Fibromyalgia Gastrointestinal ulcer GERD (gastroesophageal reflux disease) History of angina HLD (hyperlipidemia) HTN (hypertension) Hypothyroidism IBS (irritable bowel syndrome) Kidney stones TIA (transient ischemic attack) UTI (urinary tract infection) Surgical History Surgical History History of bladder surgery History of hysterectomy History of right knee joint replacement Hx of appendectomy Hx of CABG Hx of cardiac catheterization Hx of cholecystectomy Hx of spinal surgery Family History Family History Father Cerebrovascular accident, Onset Age: 62 Family history of coronary artery disease Family history of diabetes mellitus in first degree relative Family history of alcoholism Acute myocardial infarction, Onset Age: 62 Patient's father is Mother Cerebrovascular accident, Onset Age: 84 Family history of coronary artery disease Family history of diabetes mellitus in first degree relative Asthma Family history of congestive heart failure Family history of heart disease in male family member before age 55 Diabetes mellitus, Onset Age: 84 Family history of gastrointestinal disorder, Onset Age: 84 Family history of cardiovascular disease, Onset Age: 8
[2020-09-18 20:36] LABS: Glucose Point of Care 122 (65-105)
[2020-09-18 20:57] VITALS: BP 131/53; PULSE 68; RESP 20; TEMP 36.6; O2SAT 99
== END 2020-09-18 21:23 | disposition home or self-care (01) ==
PROVIDERS: Emergency Provider Emergency Medicine; PCP Family Medicine
DX: S92.324A Nondisplaced fracture of second metatarsal bone, right foot, initial encounter for closed fracture (principal); L03.115 Cellulitis of right lower limb; D64.9 Anemia, unspecified; F41.9 Anxiety disorder, unspecified; I25.10 Atherosclerotic heart disease of native coronary artery without angina pectoris; I11.0 Hypertensive heart disease with heart failure; I50.9 Heart failure, unspecified; F32.9 Major depressive disorder, single episode, unspecified; K21.9 Gastro-esophageal reflux disease without esophagitis; E78.5 Hyperlipidemia, unspecified; E03.9 Hypothyroidism, unspecified; X58.XXXA Exposure to other specified factors, initial encounter
CPT/HCPCS: 73630; 82948; 99283; A9270

== ENCOUNTER 2020-10-03 13:53 | Observation (INO) | payer OTHER, MEDICAID, SELFPAY ==
--- NOTE | ~2020-10-03 | XR_ITS ---
EXAMINATION: XR toe 2nd RT min 2V INDICATION: Right second toe pain, follow-up TECHNIQUE: Four views of the right second toe are obtained on five radiographs. COMPARISON: 09/18/2020 FINDINGS: A subacute oblique fracture is again seen in the distal neck of the second proximal phalanx . There is dorsal angulation at the fracture site. Dorsal displacement of the distal fracture fragmen t is unchanged. No additional acute osseous findings are evident. There is soft tissue swelling of th e second toe. There is severe osteoarthritis of the interphalangeal joints of the third toe. Calcifie d atherosclerosis is noted. IMPRESSION: 1. Subacute fracture of the neck of the second proximal phalanx without significant change. Reviewed, dictated and finalized at location A. [employer] IMPRESSION: 1. Subacute fracture of the neck of the second proximal phalanx without signifi cant change.
[2020-10-03 13:57] VITALS: BP 144/64; PULSE 71; RESP 17; TEMP 36.2; O2SAT 100
--- NOTE | 2020-10-03 14:45 | ED.GENADULT ---
HPI - General Adult General Chief complaint: Extremity Injury, Lower <ALEX Miller Last Filed: 10/03/20 16:37> Stated complaint: right 2nd toe injury <ALEX Miller Last Filed: 10/03/20 16:37> Time Seen by Provider: 10/03/20 14:04 <ALEX Miller Last Filed: 10/03/20 16:37> Source: patient <ALEX Miller Last Filed: 10/03/20 16:37> Mode of arrival: ambulatory <ALEX Miller Last Filed: 10/03/20 16:37> Limitations: no limitations <ALEX Miller Last Filed: 10/03/20 16:37> History of Present Illness HPI narrative: Patient is a 74-year-old diabetic female who presents for evaluation of right second toe pain noting that she 3 weeks ago injured the toe and developed swelling was told that it was fractured by primary care patient was noting that she has some swelling and irritation after which was placed on Bactrim which she had taken and then again saw her primary care for follow-up and was placed on doxycycline which was Wednesday and noting she has difficulty tolerating it due to GI upset patient notes irritation and skin breakdown to the lateral sides of the digit patient denies any fever chills nausea or vomiting or other complaints <ALEX Miller Last Filed: 10/03/20 16:37> Related Data Home medications: Home Medications Medication Instructions Recorded Confirmed atorvastatin 20 mg tablet 20 mg PO DAILY 09/26/19 09/09/20 aspirin 325 mg DAILY 12/23/19 09/09/20 furosemide 40 mg tablet 40 mg PO BID tablet 02/07/20 09/09/20 insulin aspart U-100 [Novolog See Protocol SUBCUT BIDWMEAL 04/29/20 09/09/20 Flexpen U-100 Insulin] metoprolol succinate 50 mg PO DAILY 04/29/20 09/09/20 clopidogrel 75 mg PO DAILY 09/09/20 09/09/20 dapagliflozin [Farxiga] mg 09/18/20 ezetimibe mg 09/18/20 icosapent ethyl [Vascepa] g PO 09/18/20 semaglutide [Ozempic] mg SUBCUT 09/18/20 <Esteban King PA-C - Last Filed: 10/03/20 16:37> Allergies/adverse reactions: Allergies Allergy/AdvReac Type Severity Reaction Status Date / Time ranolazine Allergy Intermediate Unknown Verified 10/03/20 13:54 gabapentin Allergy Mild Confusion Verified 10/03/20 13:54 cyclobenzaprine Allergy Unknown Unknown Verified 10/03/20 13:54 fentanyl Allergy Unknown Unknown Verified 10/03/20 13:54 <Esteban King PA-C - Last Filed: 10/03/20 16:37> Review of Systems Review of Systems: All systems reviewed & are unremarkable except as noted in HPI and below <Esteban King PA-C - Last Filed: 10/03/20 16:37> [facility] Past Medical History Medical History: Medical History (Updated 10/03/20 @ 16:36 by Esteban Knig PA-C) Anemia Anxiety Back pain CAD (coronary artery disease) Cataracts, bilateral CHF (congestive heart failure) Colitis Crohn's disease Depression Diabetes mellitus DVT (deep venous thrombosis) Fibromyalgia Gastrointestinal ulcer GERD (gastroesophageal reflux disease) History of angina HLD (hyperlipidemia) HTN (hypertension) Hypothyroidism IBS (irritable bowel syndrome) Kidney stones TIA (transient ischemic attack) UTI (urinary tract infection) <Esteban King PA-C - Last Filed: 10/03/20 16:37> Surgical History Surgical History: Surgical History History of bladder surgery History of hysterectomy History of right knee joint replacement Hx of appendectomy Hx of CABG Hx of cardiac catheterization Hx of cholecystectomy Hx of spinal surgery <Esteban King PA-C - Last Filed: 10/03/20 16:37> Family History Family History: Family History Father Cerebrovascular accident, Onset Age: 62 Family history of coronary artery disease Family history of diabetes mellitus in first degree relative Family history of alcoholism Acute myocardial infarction, Onset Age: 62
[2020-10-03 14:55] LABS: Basophils Absolute Auto 0.1 K/mm3 (0.0-0.1); Basophils Percent Auto 0.8 % (0.2-1.2); Eosinophils Absolute Auto 0.2 K/mm3 (0-0.3); Eosinophils Percent Auto 2.4 % (0-4.4); Hematocrit 37.1 % (37.0-47.0); Hemoglobin 11.8 g/dL (12.0-15.0); Immature Granulocyte Absolute 0.03 K/mm3 (0.00-0.031); Immature Granulocyte Percent A 0.3 % (0-0.5); Lymphocytes Absolute Auto 2.79 K/mm3 (0.9-3.2); Lymphocytes Percent Auto 31.6 % (18.3-44.2); Mean Corpuscular HGB Conc 31.8 g/dl (32-36); Mean Corpuscular Hemoglobin 26.7 pg (26-34); Mean Corpuscular Volume 83.9 fl (80-100); Mean Platelet Volume 8.7 fl (7.4-10.4); Monocytes Absolute Auto 0.6 K/mm3 (0.1-0.6); Monocytes Percent Auto 6.8 % (2.6-8.5); Neutrophils Absolute Auto 5.1 K/mm3 (1.3-6.7); Neutrophils Percent Auto 58.1 % (45.5-73.1); Platelet Count Result 433 k/mm3 (150-375); Red Blood Count 4.42 M/mm3 (4.2-5.4); Red Cell Distribution Width 15.3 % (11.5-14.5); White Blood Count 8.8 K/mm3 (4.5-10.0)
[2020-10-03] MEDS: SODIUM CHLORIDE 0.9% IV 1,000 ML 999 ML IV CONT (15:06)
[2020-10-03 15:07] LABS: Add Urine Microscopic? YES; Appearance Urine Clear (Clear); Bacteria Urine Trace /hpf; Bilirubin Urine Negative (Negative); Blood Urine Negative (Negative); Color Urine Yellow (Yellow); Glucose Urine UA 3+ mg/dL (Negative); Ketones Urine Negative (Negative); Leukocyte Esterase Ur Negative LEU/UL (Negative); Mucus Urine Rare /lpf; Nitrate Urine Negative (Negative); Protein Urine Negative (Negative); RBC Urine 0-2 /hpf (0-2); Specific Grav Ur 1.022 (1.001-1.035); Squamous Epithelial Cell Urine Occasional /hpf (Few); Urobilinogen Urine Negative mg/dL (<2.0); WBC Urine 0-3 /hpf
[2020-10-03 15:11] LABS: Alanine Aminotransferase 18 U/L (4-35); Alkaline Phosphatase 87 U/L (38-126); Anion Gap 5 mmol/L (8-16); Aspartate Amino Transferase 30 U/L (14-36); Bilirubin,Total 0.2 mg/dL (0.2-1.3); Blood Urea Nitrogen 13 mg/dL (7-17); CRP < 0.5 mg/dL (<1.0); Calcium 9.6 mg/dL (8.4-10.2); Carbon Dioxide 29 mmol/L (22-30); Chloride 102 mmol/L (98-107); Estimated CRCL calculation 40 ml/min; Estimated Glomerular Filt Rate 44; Glucose 123 mg/dL (65-105); Potassium 4.5 mmol/L (3.4-5.0); Sodium 136 mmol/L (137-145)
[2020-10-03 16:00] VITALS: BP 138/70; PULSE 78; RESP 16; O2SAT 100
--- NOTE | 2020-10-03 17:25 | PC.NURSE ---
report received from Karoline in ED, reviewed plan of care
[2020-10-03 18:00] VITALS: BP 140/78; PULSE 74; RESP 14; O2SAT 100
--- NOTE | 2020-10-03 18:14 | ADMGEN ---
This patient, Osvaldo Rawls, was admitted to Medical Room 241-. Patient/family oriented to hospital policies and general routines including ID bracelet, bed and alarms, visiting hours, pain management, procedures, bathroom and other care routines, personal items, smoking policy, room service/diet, and visiting hours. Information on how to activate the Rapid Response Team has been discussed. Patient/Family are encouraged to report perceived risks to care and to ask questions if they do not understand what they are told or what they should do.
[2020-10-03 18:20] VITALS: BMI 39.9
--- NOTE | 2020-10-03 18:34 | PM.IMHP ---
H&P: HPI History of Present Illness Date/Time: 10/03/20 18:34 who is a 74-year-old patient who is diabetic and comes in with right 2nd toe pain that started 3 weeks ago after an injury. The patient stated that she was not sure how her toe got injured. She said she took her shoe off at the end the night and her 2nd toe was underneath of the other toes. She said it was red and swollen. She was told that was fractured when she is our primary care physician. The patient was placed on Bactrim due to open wounds on that 2nd toe. She said that her blood sugars have been in the 140s they have been pretty good. She checks her blood sugars about every 3-4 hours each day. The patient followed up with her primary care doctor to let them know that she was not getting any better. She was then placed on doxycycline this Wednesday and she was having a GI upset due to the doxycycline and could not complete the course. She did have any fever chills. Her toe is still swollen and red. I did not notice any streaking. The patient was started on Primaxin and vancomycin. Her blood sugar was noted to be 123 today. Her white count was normal. H&H was 11.8 and 37.1. The patient was given IV fluids and started on Primaxin and vancomycin. The patient is being admitted for observation on the date of service of 10/03/2020 Chief Complaint: toe infection Review of Systems Review of Systems: All systems reviewed & are unremarkable except as noted in HPI and below Constitutional: Constitutional: Reports as per HPI and Reports no additional constitutional complaints Eyes: Eyes: Reports as per HPI and Reports no additional eye complaints ENT: Reports system reviewed and no additional complaints, except as documented and Reports Normal hearing present Cardiovascular: Cardiovascular: Reports no additional cardiovascular complaints Respiratory: Respiratory: Reports no additional respiratory complaints and Reports no additional respiratory complaints Gastrointestinal: Gastrointestinal: Reports as per HPI and Reports no additional gastrointestinal complaints Musculoskeletal: Musculoskeletal: Reports no additional musculoskeletal complaints Integumentary/Breasts: Skin/Breast: Reports system reviewed and no additional complaints, except as docu and Reports as per HPI Neurologic: Reports system reviewed and no additional complaints, except as documented, Reports as per HPI and Reports Normal hearing present Psychiatric: Psychiatric: Reports no additional psychiatric complaints and Reports as per HPI Endocrine: Endocrine: Reports no additional endocrine complaints Hematologic/Lymphatic: Hematologic/Lymphatic: Reports no additional hematologic/lymphatic complaints Allergic/Immunologic: Allergic/Immunologic: Reports no additional allergic/immunologic complaints [facility] Past Medical History Medical History (Updated 10/03/20 @ 19:37 by Sobia Ram NP) Anemia Anxiety Back pain CAD (coronary artery disease) Cataracts, bilateral CHF (congestive heart failure) Colitis Crohn's disease Depression Depression with anxiety Diabetes mellitus DVT (deep venous thrombosis) Fibromyalgia Gastrointestinal ulcer GERD (gastroesophageal reflux disease) History of angina HLD (hyperlipidemia) HTN (hypertension) Hypothyroidism IBS (irritable bowel syndrome) Kidney stones TIA (transient ischemic attack) UTI (urinary tract infection) Surgical History Surgical History (Updated 10/03/20 @ 18:53 by Sobia Ram NP) H/O cataract extraction History of bladder surgery History of hysterectomy History of right knee joint replacement Hx of appendectomy Hx of CABG Hx of cardiac catheterization Hx of cholecystectomy Hx of spinal surgery Family History Family History (Updated 10/03/20 @ 18:54 by Sobia Ram NP) Father Cerebrovascular accident, Onset Age: 62 Family history of coronary artery disease Family history of alcoholism Acute myocardial infa
[2020-10-03 18:49] LABS: Glucose Point of Care 115 (65-105)
[2020-10-03 20:15] LABS: Hemoglobin A1C 6.7 % (<5.7)
[2020-10-03] MEDS: FUROSEMIDE 40 MG TABLET PO (20:18)
[2020-10-03] MEDS: FAMOTIDINE 20 MG/2 ML VIAL IV PUSH (20:18)
[2020-10-03] MEDS: DONEPEZIL HCL 10 MG TABLET BY MOUTH (20:18)
[2020-10-03] MEDS: AMITRIPTYLINE HCL 25 MG TABLET 50 MG PO (20:18)
[2020-10-03] MEDS: metFORMIN HCL 500 MG TABLET 1000 MG BY MOUTH (20:18)
[2020-10-03 21:45] VITALS: BP 151/64; PULSE 87; RESP 18; TEMP 36.6; O2SAT 100
[2020-10-04 01:56] LABS: Glucose Point of Care 110 (65-105)
[2020-10-04 02:00] VITALS: BP 137/56; PULSE 89; RESP 18; TEMP 36.6; O2SAT 97
[2020-10-04 04:47] VITALS: BP 131/56; PULSE 95; RESP 16; TEMP 36.6; O2SAT 100
[2020-10-04 05:19] LABS: Basophils Absolute Auto 0.1 K/mm3 (0.0-0.1); Basophils Percent Auto 0.6 % (0.2-1.2); Eosinophils Absolute Auto 0.3 K/mm3 (0-0.3); Eosinophils Percent Auto 3.3 % (0-4.4); Hematocrit 36.6 % (37.0-47.0); Hemoglobin 11.4 g/dL (12.0-15.0); Immature Granulocyte Absolute 0.03 K/mm3 (0.00-0.031); Immature Granulocyte Percent A 0.3 % (0-0.5); Lymphocytes Absolute Auto 2.71 K/mm3 (0.9-3.2); Lymphocytes Percent Auto 27.7 % (18.3-44.2); Mean Corpuscular HGB Conc 31.1 g/dl (32-36); Mean Corpuscular Hemoglobin 26.5 pg (26-34); Mean Corpuscular Volume 85.1 fl (80-100); Mean Platelet Volume 8.7 fl (7.4-10.4); Monocytes Absolute Auto 0.6 K/mm3 (0.1-0.6); Neutrophils Absolute Auto 6.1 K/mm3 (1.3-6.7); Neutrophils Percent Auto 62.1 % (45.5-73.1); Platelet Count Result 379 k/mm3 (150-375); Red Cell Distribution Width 15.7 % (11.5-14.5); White Blood Count 9.8 K/mm3 (4.5-10.0)
[2020-10-04 06:39] LABS: Alanine Aminotransferase 18 U/L (4-35); Albumin Level 3.9 g/dL (3.5-5.1); Alkaline Phosphatase 84 U/L (38-126); Anion Gap 8 mmol/L (8-16); Aspartate Amino Transferase 26 U/L (14-36); Bilirubin,Total 0.3 mg/dL (0.2-1.3); Blood Urea Nitrogen 14 mg/dL (7-17); Calcium 9.1 mg/dL (8.4-10.2); Carbon Dioxide 27 mmol/L (22-30); Chloride 104 mmol/L (98-107); Estimated CRCL calculation 48 ml/min; Estimated Glomerular Filt Rate 54; Glucose 134 mg/dL (65-105); Potassium 3.6 mmol/L (3.4-5.0); Sodium 139 mmol/L (137-145)
[2020-10-04 07:51] LABS: Glucose Point of Care 123 (65-105)
[2020-10-04 08:12] VITALS: BP 121/58; PULSE 98; RESP 18; TEMP 36.6; O2SAT 100
--- NOTE | 2020-10-04 10:00 | PM.CNGS ---
Assessment and Plan Assessment and plan (1) Cellulitis of toe of right foot: Code(s): L03.031 - Cellulitis of right toe Status: Acute Assessment and Plan: cont abx, much improved today, no drainable areas, ok to dc c po abx from surgical standpoint, will need f/u c podiatry (2) Fracture of right toe: Qualifiers: Encounter type: initial encounter Fracture alignment: displaced Fracture type: closed Phalanx: proximal Toe: lesser toe Qualified Code(s): S92.511A - Displaced fracture of proximal phalanx of right lesser toe(s), initial encounter for closed fracture Code(s): S92.911A - Unspecified fracture of right toe(s), initial encounter for closed fracture Status: Acute Assessment and Plan: cont activity restriction, to see podiatry on 10/07 (3) Diabetes mellitus: Qualifiers: Diabetes mellitus type: type 2 Diabetes mellitus retirement insulin use: with retirement use Diabetes mellitus complication status: without complication Qualified Code(s): E11.9 - Type 2 diabetes mellitus without complications; 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 transplanted heart: [place] heart Associated angina: without angina Qualified Code(s): I25.10 - Atherosclerotic heart disease of [place] coronary artery without angina pectoris Code(s): I25.10 - Atherosclerotic heart disease of [place] coronary artery without angina pectoris Status: Acute Assessment and Plan: stable, cont current mgmt History of Present Illness Consult details Consult date: 10/04/20 Reason for consult: wound care Requesting physician: Sobia Ram NP Narrative: Pt is a 74 y/o F presenting to ED c/o worsening redness, swelling in R second toe. Pt reports she injured her toe approximately 3 wks ago. Pt was dx'd to a fracture and cellulitis. Pt was told to see a concrete stone finisher and limit activity until that appointment. Pt was also started on Bactrim. Pt reports she was unable to see concrete stone finisher because of scheduling difficulties and has appointment for 10/07. Pt reports after abx were done, she noted worsening pain, redness, swelling for the toe. Pt saw PCP and was started on Doxycycline. Pt reports she could not tolerate abx bc of GI issues. Pt then instructed to come to ED for further eval. Since admit, pt has been on IV abx. Pt reports decreased pain, redness, and swelling this am. Pt denies any fever, chills, N/V. Pt reports some blistering of skin but no real drainage. Review of Systems Constitutional: Constitutional: Denies anorexia, Denies chills, Denies fatigue, Denies fever(s), Denies frequent falls, Denies increased appetite, Denies lethargy, Denies malaise, Denies poor appetite, Denies weakness, Denies weight gain and Denies weight loss Eyes: Eyes: Reports no additional eye complaints ENT: Reports system reviewed and no additional complaints, except as documented Cardiovascular: Cardiovascular: Reports no additional cardiovascular complaints Respiratory: Respiratory: Reports no additional respiratory complaints Gastrointestinal: Gastrointestinal: Reports no additional gastrointestinal complaints Genitourinary: Genitourinary: Reports no additional female genitourinary complaints Musculoskeletal: Musculoskeletal: Reports as per HPI Integumentary/Breasts: Skin/Breast: Reports as per HPI Neurologic: Reports system reviewed and no additional complaints, except as documented Psychiatric: Psychiatric: Reports no additional psychiatric complaints Endocrine: Endocrine: Reports no additional endocrine complaints Hematologic/Lymphatic: Hematologic/Lymphatic: Reports no additional hematologic/lymphatic complai
[2020-10-04] MEDS: ONDANSETRON INJ 4 MG/2 ML VIAL IV PUSH (10:04)
--- NOTE | 2020-10-04 10:13 | PC.NURSE ---
pt's breakfast has arrived, will administer meds after she has had a chance to eat
[2020-10-04] MEDS: ASPIRIN 325 MG TABLET BY MOUTH (11:11)
[2020-10-04] MEDS: OMEGA 3 POLYUNSAT FATTY ACIDS 1 GM CAP PO (11:11)
[2020-10-04] MEDS: PANTOPRAZOLE 40 MG TABLET 80 MG PO (11:12)
[2020-10-04] MEDS: AMITRIPTYLINE HCL 25 MG TABLET 50 MG PO (11:12)
[2020-10-04] MEDS: ATORVASTATIN 20 MG TABLET PO (11:12)
[2020-10-04] MEDS: dilTIAZem HCL CD 180 MG CAP.ER.24H BY MOUTH (11:12)
[2020-10-04] MEDS: CLOPIDOGREL BISULFATE 75 MG TABLET PO (11:12)
[2020-10-04] MEDS: FUROSEMIDE 40 MG TABLET PO (11:12)
[2020-10-04 11:13] VITALS: PULSE 92
[2020-10-04] MEDS: METOPROLOL SUCCINATE EXT REL 50 MG TABCR PO (11:13)
[2020-10-04] MEDS: FAMOTIDINE 20 MG/2 ML VIAL IV PUSH (11:14)
[2020-10-04] MEDS: EZETIMIBE 10 MG TABLET PO (11:14)
[2020-10-04] MEDS: SERTRALINE HCL 50 MG TABLET PO (11:14)
[2020-10-04] MEDS: metFORMIN HCL 500 MG TABLET 1000 MG BY MOUTH (11:14)
[2020-10-04 12:00] VITALS: BP 130/90; PULSE 88; RESP 18; TEMP 36.2; O2SAT 100
[2020-10-04 12:24] LABS: Glucose Point of Care 215 (65-105)
[2020-10-04] MEDS: INSULIN ASPART (*BKC) 100 UNITS/ML SUB-Q (13:32)
--- NOTE | 2020-10-04 13:42 | PM.DS ---
DS: Admitting Diagnosis Admitting Diagnosis Admitting Diagnosis: Cellulitis R foot DS: Discharge Diagnosis Discharge Diagnosis (1) Cellulitis of toe of right foot: Code(s): L03.031 - Cellulitis of right toe Status: Acute Assessment and Plan: Date of Admission 10/03/20 Date of Discharge/DOS 10/04/20 Ms. Rawls is a 75yo F with history of diabetes, hypertension, coronary artery disease, hypothyroidism who presented to the ED for evaluation of pain, redness and swelling to right 2nd toe. XR showed subacute oblique fracture of 2nd proximal phalanx with polyarticular arthritis. She was placed in a post-op walking shoe and started on IV antibiotics for treatment of cellulitis. She was treated with IV vancomycin and imipenem per antibiotic stewardship guidelines. She had marked improvement in the erythema and pain the following day. She was seen by wound RN and general surgery, no drainable areas are noted. Wound culture obtained in ED grew light growth of pseudomonas after patient was discharged, thus Levaquin was added to her augmentin and a message was left on the phone with her that she should continue both antibiotics until they are gone. She already has a scheduled appointment to see the industrial roofer 10/07. She is clinically improved and is hemodynamically stable for discharge 10/04/20. (2) Fracture of right toe: Qualifiers: Encounter type: initial encounter Fracture alignment: displaced Fracture type: closed Phalanx: proximal Toe: lesser toe Qualified Code(s): S92.511A - Displaced fracture of proximal phalanx of right lesser toe(s), initial encounter for closed fracture Code(s): S92.911A - Unspecified fracture of right toe(s), initial encounter for closed fracture Status: Acute Assessment and Plan: Patient has a walking boot intact. (3) CHF (congestive heart failure): Qualifiers: Heart failure type: diastolic Heart failure chronicity: chronic Qualified Code(s): I50.32 - Chronic diastolic (congestive) heart failure Code(s): I50.9 - Heart failure, unspecified Status: Acute Assessment and Plan: Euvolemic, maintained on her home medications. 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 Patient checks blood glucose regularly each day. She is educated on the importance of tight glycemic control to optimize wound healing. (5) HTN (hypertension): Qualifiers: Hypertension type: essential hypertension Qualified Code(s): I10 - Essential (primary) hypertension Code(s): I10 - Essential (primary) hypertension Status: Acute Assessment and Plan: Stable on home medications metoprolol and Cardizem. (6) CAD (coronary artery disease): Qualifiers: Coronary Disease-Associated Artery/Lesion type: [place] artery [place] vs. transplanted heart: [place] heart Associated angina: without angina Qualified Code(s): I25.10 - Atherosclerotic heart disease of [place] coronary artery without angina pectoris Code(s): I25.10 - Atherosclerotic heart disease of [place] coronary artery without angina pectoris Status: Acute Assessment and Plan: Stable, no chest pain. The patient has had a 2 vessel CABG in the past. Continue with metoprolol and Plavix DS: [facility]
--- NOTE | 2020-10-04 13:48 | PC.NURSE ---
On 10/04/20, the student, [ Sarah Albright], provided care and completed [facility] documentation on this patient. I have reviewed the student's documentation and agree with the findings.
[2020-10-04 14:34] VITALS: BP 138/66; PULSE 90; RESP 16; TEMP 36.4; O2SAT 100
--- NOTE | 2020-10-10 13:39 | PC.NURSE ---
Blood cx are negative. IBAN Haddad aware of wound cx.
== END 2020-10-04 15:45 | disposition home or self-care (01) ==
LOC: ANHED 16:37 → ANH2MED 16:57
PROVIDERS: Emergency Medicine Emergency Medical Services; Nurse Practitioner; Physician Assistant; Admitting Provider Internal Medicine; Emergency Provider General Practice; PCP Physician Assistant; Visit Provider Family Medicine
DX: S92.511A Displaced fracture of proximal phalanx of right lesser toe(s), initial encounter for closed fracture (principal); L03.031 Cellulitis of right toe; E11.9 Type 2 diabetes mellitus without complications; E03.9 Hypothyroidism, unspecified; E78.5 Hyperlipidemia, unspecified; I11.0 Hypertensive heart disease with heart failure; I50.32 Chronic diastolic (congestive) heart failure; I25.10 Atherosclerotic heart disease of native coronary artery without angina pectoris; F41.8 Other specified anxiety disorders; X58.XXXA Exposure to other specified factors, initial encounter; Z86.73 Personal history of transient ischemic attack (TIA), and cerebral infarction without residual deficits; Z96.651 Presence of right artificial knee joint; Z95.1 Presence of aortocoronary bypass graft; Z79.4 Long term (current) use of insulin
CPT/HCPCS: 36415; 73660; 80053; 81001; 82948; 83036; 85025; 86140; 87040; 87070; 87075; 87077; 87186; 87205; 96361; 96365; 96366; 96367; 96375; 96376; 99285; A9270; G0378; J0131; J0743; J1815; J2405; J3370; J7030

== ENCOUNTER 2020-11-06 15:07 | Emergency (ER) | payer OTHER, MEDICAID, SELFPAY ==
[2020-11-06 15:24] VITALS: BP 152/73; PULSE 79; RESP 18; TEMP 35.9; O2SAT 100
--- NOTE | 2020-11-06 17:21 | ED.FEMALEGU ---
HPI - Female Genitourinary General Chief complaint: Urogenital-Female Stated complaint: BURNING URINATION Source: patient and RN notes reviewed Limitations: no limitations History of Present Illness HPI Narrative: The patient, is on several medications, presents with a 1 week history of urinary frequency, and urgency . This is associated with some1-2d of external dysuria. No fever, vomiting/diarrhea, visible blood, abdominal pain-but she is some mild right inguinal/side pain that reminds her previous UTIs. She comments she was on antibiotics late last month for a diabetic foot infection and needed Diflucan-which she would like with this course. Related Data Home Medications Medication Instructions Recorded Confirmed atorvastatin 20 mg tablet 20 mg PO DAILY 09/26/19 10/03/20 aspirin 325 mg DAILY 12/23/19 10/03/20 insulin aspart U-100 [Novolog See Protocol SUBCUT BIDWMEAL 04/29/20 10/03/20 Flexpen U-100 Insulin] metoprolol succinate 50 mg PO DAILY 04/29/20 10/03/20 clopidogrel 75 mg PO DAILY 09/09/20 10/03/20 Farxiga 10 mg DAILY 09/18/20 10/03/20 Ozempic 0.25 - 0.5 mg SUBCUT WEEKLY 09/18/20 10/03/20 ezetimibe 10 mg PO DAILY 09/18/20 10/03/20 icosapent ethyl [Vascepa] 1 g PO BID 09/18/20 10/03/20 Ozempic mg SUBCUT 10/03/20 Ozempic mg SUBCUT 10/03/20 amitriptyline 50 mg PO BID 10/03/20 10/03/20 pantoprazole 80 mg PO DAILY 10/03/20 10/03/20 Allergies Allergy/AdvReac Type Severity Reaction Status Date / Time ranolazine Allergy Intermediate Unknown Verified 10/03/20 18:51 gabapentin Allergy Mild Confusion Verified 10/03/20 18:51 cyclobenzaprine Allergy Unknown Unknown Verified 10/03/20 18:51 fentanyl Allergy Unknown Unknown Verified 10/03/20 18:51 ciprofloxacin [From Cipro] Allergy Unknown Verified 11/06/20 15:20 doxycycline Allergy Unknown Verified 11/06/20 15:20 Review of Systems Review of Systems: Narrative: General/Constitutional: No weight loss,fever Eyes: N0: Redness,discharge Ears/Nose/Throat: No: Epistaxis,ear discharge Respiratory: Denies: Hemoptysis Gastrointestinal: No Vomiting, Bleeding-rectal Skin: No Lumps, eruption Neurologic: No Focal Weakness,Sz Hematologic: Denies: Petechiae/Purpura Psychiatric: No: Suicida ideationl All Other Systems: Reviewed and Negative [facility] Past Medical History Medical History Anemia Anxiety Back pain CAD (coronary artery disease) Cataracts, bilateral CHF (congestive heart failure) Colitis Crohn's disease Depression Depression with anxiety Diabetes mellitus DVT (deep venous thrombosis) Fibromyalgia Gastrointestinal ulcer GERD (gastroesophageal reflux disease) History of angina HLD (hyperlipidemia) HTN (hypertension) Hypothyroidism IBS (irritable bowel syndrome) Kidney stones TIA (transient ischemic attack) UTI (urinary tract infection) Surgical History Surgical History H/O cataract extraction History of bladder surgery History of hysterectomy History of right knee joint replacement Hx of appendectomy Hx of CABG Hx of cardiac catheterization Hx of cholecystectomy Hx of spinal surgery Family History Family History Father Cerebrovascular accident, Onset Age: 62 Family history of coronary artery disease Family history of alcoholism Acute myocardial infarction, Onset Age: 62 Patient's father is Mother Cerebrovascular accident, Onset Age: 84 Family history of coronary artery disease Family history of diabetes mellitus in first degree relative Asthma Family history of congestive heart failure Family history of heart disease in male family member before age 55 Diabetes mellitus, Onset Age: 84 Family history of gastrointestinal disorder, Onset Age: 84 Family history of cardiovascular disease, Onset Age: 84 Patient's mother is Sibling D
== END 2020-11-06 15:48 | disposition home or self-care (01) ==
PROVIDERS: Emergency Provider Emergency Medicine; PCP Physician Assistant
DX: N30.00 Acute cystitis without hematuria (principal); I25.10 Atherosclerotic heart disease of native coronary artery without angina pectoris; Z98.42 Cataract extraction status, left eye; Z98.41 Cataract extraction status, right eye; I11.0 Hypertensive heart disease with heart failure; I50.9 Heart failure, unspecified; E11.9 Type 2 diabetes mellitus without complications; Z86.718 Personal history of other venous thrombosis and embolism; M79.7 Fibromyalgia; K21.9 Gastro-esophageal reflux disease without esophagitis; E78.5 Hyperlipidemia, unspecified; E03.9 Hypothyroidism, unspecified; Z86.73 Personal history of transient ischemic attack (TIA), and cerebral infarction without residual deficits; Z96.651 Presence of right artificial knee joint; Z95.1 Presence of aortocoronary bypass graft; F32.9 Major depressive disorder, single episode, unspecified; Z79.82 Long term (current) use of aspirin; Z79.4 Long term (current) use of insulin
CPT/HCPCS: 81003; 87086; 99213; G0463

== ENCOUNTER 2020-11-18 15:36 | Outpatient (CLI) | payer OTHER, MEDICAID, SELFPAY ==
--- NOTE | ~2020-11-18 | CT_ITS ---
EXAMINATION: CT brain wo con EXAM DATE: 11/18/2020 15:54 INDICATION: Dizziness. Memory loss. TECHNIQUE: Spiral CT of the head was performed without contrast. Axial, coronal and sagittal images were reviewed. The dose-length product (DLP) for this examination was 605.33 mGy-cm. The exposure w as tailored according to patient size, and iterative reconstruction (ASIR) was used as additional dos e reduction technique. Comparison is made to prior examination from 12/23/2019. FINDINGS: There is no acute intraparenchymal hemorrhage. No evidence of intraparenchymal brain mass lesion. No evidence of acute infarction. Please note that initial head CT has limited sensitivity f or small or acute infarctions. There is moderate periventricular and subcortical hypodensity, nonspec ific but probably related to small vessel ischemic disease. There is mild prominence of the sulci a nd ventricles related to cerebral atrophy. There is intracranial carotid arteriosclerosis. There a re no extra-axial collections. There is no mass effect or midline shift. Patient has had bilateral ocular lens surgery. Soft tissue is unremarkable. The visualized sinuses and mastoid air cells are well aerated. IMPRESSION: 1. No acute intracranial findings. 2. Chronic age related findings. Reviewed, dictated and finalized at location A.
== END 2020-11-18 15:37 | disposition home or self-care (01) ==
PROVIDERS: PCP Family Medicine; Visit Provider Physician Assistant
DX: R42 Dizziness and giddiness (principal); H53.8 Other visual disturbances; R41.3 Other amnesia
CPT/HCPCS: 70450

== ENCOUNTER 2021-04-14 10:14 | Emergency (ER) | payer OTHER, MEDICAID, SELFPAY ==
[2021-04-14 10:26] VITALS: BP 136/84; PULSE 98; RESP 18; TEMP 36; O2SAT 96
[2021-04-14 11:06] LABS: Glucose Point of Care 131 mg/dl (65-105)
--- NOTE | 2021-04-14 11:12 | ED.LOWEXIN ---
HPI - Extremity Injury (Lower) General Chief Complaint: Extremity Injury, Lower Stated Complaint: Left foot toe pain Time Seen by Provider: 04/14/21 11:12 Source: patient, RN notes reviewed and old records reviewed Mode of arrival: ambulatory Limitations: no limitations History of Present Illness HPI Narrative: 75 year old female who presents to express care with complaints of left 5th toe injury which occurred approximately 2 months ago when she bumped her toe on bedroom furniture, reports some bleeding at the time. She has been soaking her foot in warm soapy water daily and has used Betadine swab to the toe area. Patient has blackened type of scabbed area at toenail with left 5th toe red and swollen and is painful to touch. All of toes are swollen with some redness and also distal left also swollen and red.Patient is insulin dependent diabetic glucose per fingerstick 131 in clinic. Patient states that she called her field tax auditor and he is out of office due to recent delivery of pre term baby in NICU.Patient states that her symptoms on her left foot have increased in the past week.Patient states that she saw her PCP last week but forgot to discuss this at visit. Related Data Home Medications Medication Instructions Recorded Confirmed atorvastatin 20 mg tablet 20 mg PO DAILY 09/26/19 10/03/20 aspirin 325 mg DAILY 12/23/19 10/03/20 insulin aspart U-100 [Novolog See Protocol SUBCUT BIDWMEAL 04/29/20 10/03/20 Flexpen U-100 Insulin] metoprolol succinate 50 mg PO DAILY 04/29/20 10/03/20 Farxiga 10 mg DAILY 09/18/20 10/03/20 Ozempic 0.25 - 0.5 mg SUBCUT WEEKLY 09/18/20 10/03/20 ezetimibe 10 mg PO DAILY 09/18/20 10/03/20 icosapent ethyl [Vascepa] 1 g PO BID 09/18/20 10/03/20 amitriptyline 50 mg PO BID 10/03/20 10/03/20 pantoprazole 80 mg PO DAILY 10/03/20 10/03/20 Allergies Allergy/AdvReac Type Severity Reaction Status Date / Time ranolazine Allergy Intermediate Unknown Verified 04/14/21 10:33 gabapentin Allergy Mild Confusion Verified 04/14/21 10:33 cyclobenzaprine Allergy Unknown Unknown Verified 04/14/21 10:33 fentanyl Allergy Unknown Unknown Verified 04/14/21 10:33 ciprofloxacin [From Cipro] Allergy Unknown Verified 04/14/21 10:33 doxycycline Allergy Unknown Verified 04/14/21 10:33 Review of Systems Review of Systems: CONSTITUTIONAL: Denies fever, chills, or sweats. EYES: Denies visual changes, redness, or discharge. ENT: Denies rhinorrhea, congestion, sore throat, or otalgia. CARDIOVASCULAR: Denies chest pain, palpitations, or edema. RESPIRATORY: Denies cough or dyspnea. GASTROINTESTINAL: Denies abdominal pain, nausea, vomiting, or diarrhea. GENITOURINARY: Denies dysuria or hematuria. SKIN: Denies rash or itching.Wound to 5th left toe with swelling and redness to all toes and left distal foot. MUSCULOSKELETAL: Denies acute back pain, joint pain, or myalgia. NEUROLOGIC: Denies headache, numbness, or weakness. PSYCHIATRIC: Positive history of anxiety or depression. All systems reviewed & are unremarkable except as noted in HPI and below PMFSH Past Medical History Medical History Anemia Anxiety Back pain CAD (coronary artery disease) Cataracts, bilateral CHF (congestive heart failure) Colitis Crohn's disease Depression Depression with anxiety Diabetes mellitus DVT (deep venous thrombosis) Fibromyalgia Gastrointestinal ulcer GERD (gastroesophageal reflux disease) History of angina HLD (hyperlipidemia) HTN (hypertension) Hypothyroidism IBS (irritable bowel syndrome) Kidney stones TIA (transient ischemic attack) UTI (urinary tract infection) Surgical History Surgical History H/O cataract extraction History of bladder surgery History of hysterectomy History of right knee joint replacement Hx of appendectomy Hx of CABG Hx of cardiac catheterization Hx of cholecystectomy Hx of spinal surgery Family History
== END 2021-04-14 11:46 | disposition home or self-care (01) ==
PROVIDERS: Emergency Provider Registered Nurse; PCP Physician Assistant
DX: E11.621 Type 2 diabetes mellitus with foot ulcer (principal); L97.529 Non-pressure chronic ulcer of other part of left foot with unspecified severity; I25.10 Atherosclerotic heart disease of native coronary artery without angina pectoris; I11.0 Hypertensive heart disease with heart failure; I50.9 Heart failure, unspecified; E78.5 Hyperlipidemia, unspecified; E03.9 Hypothyroidism, unspecified; Z86.718 Personal history of other venous thrombosis and embolism; Z79.82 Long term (current) use of aspirin; Z79.4 Long term (current) use of insulin
CPT/HCPCS: 82948; 99213; G0463

== ENCOUNTER 2021-05-03 12:35 | Emergency (ER) | payer OTHER, MEDICAID, SELFPAY ==
[2021-05-03 12:42] VITALS: BP 132/45; PULSE 82; RESP 15; TEMP 36.9; O2SAT 98
--- NOTE | 2021-05-03 13:53 | ED.EAR ---
HPI - Ear Problem General Chief complaint: Ear Stated complaint: Ear Pain Time Seen by Provider: 05/03/21 13:20 Source: patient, RN notes reviewed and old records reviewed Mode of arrival: ambulatory Limitations: no limitations History of Present Illness HPI Narrative: 75 year old female presents to [facility] care with complaints of right ear pain since Wednesday with increase in her right ear pain since Wednesday. Patient is presently taking Doxycycline for toe infection to left 5h toe and is diabetic. She states that she is to have some stents put in her left leg in near future. Patient reports that she has severe pain in her left ear has not noted any drainage from her right ear but constant throbbing pain, has taken Tylenol with no improvement in her symptoms. Patient denies any known fevers chills or sweats, denies any sinus congestion or drainage or any sore throat pain. MD Complaint: ear pain Location: right ear Related Data Home Medications Medication Instructions Recorded Confirmed atorvastatin 20 mg tablet 20 mg PO DAILY 09/26/19 04/23/21 aspirin 325 mg DAILY 12/23/19 04/23/21 metoprolol succinate 50 mg PO DAILY 04/29/20 04/23/21 Farxiga 10 mg DAILY 09/18/20 04/23/21 Ozempic 0.25 - 0.5 mg SUBCUT WEEKLY 09/18/20 04/23/21 ezetimibe 10 mg PO DAILY 09/18/20 04/23/21 icosapent ethyl [Vascepa] 1 g PO BID 09/18/20 04/23/21 pantoprazole 80 mg PO DAILY 10/03/20 04/23/21 dicyclomine 20 mg tablet 20 mg PO BID 04/23/21 04/23/21 furosemide 40 mg tablet 40 mg PO QAM 04/23/21 04/23/21 potassium chloride 10 mEq 10 meq PO DAILY 04/23/21 04/23/21 tablet,extended release insulin glargine [Lantus Solostar SUBCUT 05/03/21 U-100 Insulin] ticagrelor [Brilinta] mg 05/03/21 Allergies Allergy/AdvReac Type Severity Reaction Status Date / Time ranolazine Allergy Intermediate Unknown Verified 04/14/21 10:33 gabapentin Allergy Mild Confusion Verified 04/14/21 10:33 cyclobenzaprine Allergy Unknown Unknown Verified 04/14/21 10:33 fentanyl Allergy Unknown Unknown Verified 04/14/21 10:33 ciprofloxacin [From Cipro] Allergy Unknown Verified 04/14/21 10:33 doxycycline Allergy Unknown Verified 04/14/21 10:33 Review of Systems Review of Systems: CONSTITUTIONAL: Denies fever, chills, or sweats. EYES: Denies visual changes, redness, or discharge. ENT: Denies rhinorrhea, congestion, sore throat,positive for right otalgia. CARDIOVASCULAR: Denies chest pain, palpitations, or edema. RESPIRATORY: Denies cough or dyspnea. GASTROINTESTINAL: Denies abdominal pain, nausea, vomiting, or diarrhea. GENITOURINARY: Denies dysuria or hematuria. SKIN: Denies rash or itching. has lesion to left 5th toe is presenting seeing podiatry and also vascular surgeon for stents to be placed to left leg near future. MUSCULOSKELETAL: Denies back pain, joint pain, or myalgia. NEUROLOGIC: Denies headache, numbness, or weakness. PSYCHIATRIC: Positive for history of anxiety or depression. All systems reviewed & are unremarkable except as noted in HPI and below PMFSH Past Medical History Medical History Anemia Anxiety Back pain CAD (coronary artery disease) Cataracts, bilateral CHF (congestive heart failure) Colitis Crohn's disease Depression Depression with anxiety Diabetes mellitus DVT (deep venous thrombosis) Fibromyalgia Gastrointestinal ulcer GERD (gastroesophageal reflux disease) History of angina HLD (hyperlipidemia) HTN (hypertension) Hypothyroidism IBS (irritable bowel syndrome) Kidney stones TIA (transient ischemic attack) UTI (urinary tract infection) Surgical History Surgical History H/O cataract extraction History of bladder surgery History of hysterectomy History of right knee joint replacement Hx of appendectomy Hx of CABG Hx of cardiac catheterization Hx of cholecystectomy Hx of spinal surgery Family History Family History (Reviewed
== END 2021-05-03 14:07 | disposition home or self-care (01) ==
PROVIDERS: Emergency Provider Registered Nurse; PCP Family Medicine
DX: H60.91 Unspecified otitis externa, right ear (principal); I25.10 Atherosclerotic heart disease of native coronary artery without angina pectoris; I11.0 Hypertensive heart disease with heart failure; I50.9 Heart failure, unspecified; K50.90 Crohn's disease, unspecified, without complications; E11.9 Type 2 diabetes mellitus without complications; Z86.718 Personal history of other venous thrombosis and embolism; M79.7 Fibromyalgia; K21.9 Gastro-esophageal reflux disease without esophagitis; E78.5 Hyperlipidemia, unspecified; I10 Essential (primary) hypertension; E03.9 Hypothyroidism, unspecified; Z86.73 Personal history of transient ischemic attack (TIA), and cerebral infarction without residual deficits; Z95.1 Presence of aortocoronary bypass graft; D64.9 Anemia, unspecified; Z98.49 Cataract extraction status, unspecified eye; Z96.651 Presence of right artificial knee joint
CPT/HCPCS: 99213; G0463

== ENCOUNTER → 2021-06-04 11:00 | Outpatient (CLI) | payer OTHER, MEDICAID, SELFPAY ==
--- NOTE | ~2021-06-04 | XR_ITS ---
EXAMINATION: XR chest 2V 06/04/2021 11:38 INDICATION: Chest pain PROCEDURE: 2 view chest COMPARISON: Comparison to multiple prior studies sequentially, with oldest reviewed study dated 01/17 FINDINGS: status post median sternotomy for CABG. Heart size upper normal. There are healed right rib fractures. No focal air space disease, pulmonary edema, pleural effusion or suspected pneumothorax. IMPRESSION: 1: NO ACUTE CARDIOPULMONARY DISEASE. Reviewed, dictated and finalized at location A. CASTING MACHINE OPERATOR
== END ==
PROVIDERS: PCP Family Medicine
DX: R07.9 Chest pain, unspecified (principal)
CPT/HCPCS: 71046

== ENCOUNTER 2021-08-13 09:05 | Inpatient (IN) | payer OTHER, MEDICAID, SELFPAY ==
[2021-08-13] VITALS (11 sets, daily range): BP systolic 121–162; BP diastolic 46–88; PULSE 67–101; RESP 11–20; TEMP 36.1–37.1; O2SAT 100; BMI 31.8
--- NOTE | ~2021-08-13 | US_ITS ---
EXAMINATION: US carotid duplex BI DATE: 08/14/2021 10:45 INDICATION: Syncopal episode. Carotid atherosclerosis and stenosis. TECHNIQUE: Grayscale, color Doppler, and pulsed Doppler images of the cervical carotid arteries were obtained. The degree of vessel stenosis is placed in one of the following categories: normal, <50%, 5 0-69%, >=70% but less than near-occlusion, near-occlusion, or total occlusion. Note that percent sten osis relative to normal distal artery lumen diameter is indirectly measured from velocity measurement s as described by Rom, et al. Radiology 2003; 229:340-346. COMPARISON: 03/13/2019 FINDINGS: RIGHT: The right common carotid artery (CCA) peak systolic velocity (PSV) is 101 cm/s. The right internal ca rotid artery (ICA) PSV is 125 cm/s. The right ICA end-diastolic velocity (EDV) is 23 cm/s. The right ICA/CCA PSV ratio is 1.2. Grayscale and color Doppler images yield an estimate of 50-69% diameter red uction from plaque in the ICA. The external carotid artery (ECA) PSV is 72 cm/s. There is antegrade f low in the right vertebral artery. LEFT: The left CCA PSV is 95 cm/s. The left ICA PSV is 85 cm/s. The left ICA EDV is 17 cm/s. The left ICA/C CA PSV ratio is 0.9. Grayscale and color Doppler images yield an estimate of <50% diameter reduction from plaque in the ICA. The ECA PSV is 74 cm/s. There is antegrade flow in the left vertebral artery. IMPRESSION: 1. 50-69% stenosis in the right internal carotid artery. 2. <50% stenosis in the left internal carotid artery. Reviewed, dictated and finalized at location A. TICS FABRICATION SUPERVISOR
--- NOTE | ~2021-08-13 | XR_ITS ---
XR hip LT min 3V w AP pelvis DATE: 08/14/2021 11:35 INDICATION: Left hip pain TECHNIQUE: AP pelvis. 3 views of left hip. COMPARISON: 01/29/2020 pelvis and left hip FINDINGS: L2 vertebroplasty is incidentally noted. There is bilateral excretion of contrast material by the kidneys without evidence of hydroureteronephrosis. The pubic symphysis and sacroiliac joints are intact. No pelvic fracture or bone destruction. Hip pop nt spaces are symmetric and relatively preserved. IMPRESSION: No significant abnormality of pelvis or left hip Reviewed, dictated and finalized at location A. STRIAL GAS SERVICER HELPER
--- NOTE | ~2021-08-13 | CT_ITS ---
EXAMINATION: CT brain wo con, CT cervical spine wo con EXAM DATE: 08/13/2021 09:56 INDICATION: Syncope. Right head injury, periorbital swelling. TECHNIQUE: Spiral CT of the head was performed without contrast. Axial, coronal and sagittal images were reviewed. Spiral CT of the cervical spine was performed without contrast. Axial images were rev iewed. Coronal and sagittal reformatted images were also reviewed. The dose-length product (DLP) fo r this examination was 605.33 mGy-cm. The exposure was tailored according to patient size, and itera tive reconstruction (ASIR) was used as additional dose reduction technique. There is no prior study for comparison. FINDINGS: HEAD CT: There is no acute intraparenchymal hemorrhage. No evidence of intraparenchymal brain mass lesion. No evidence of acute infarction. There is moderate periventricular and subcortical hypodensi ty, nonspecific but probably related to small vessel ischemic disease. There is mild prominence of the sulci and ventricles related to cerebral atrophy. There is no mass effect or midline shift. Th ere is no obstructive hydrocephalus suspected. There are no extra-axial collections. There are no a cute calvarial fractures. Patient has had bilateral ocular lens surgery. Soft tissue is unremarkabl e. The visualized sinuses and mastoid air cells are well aerated. CERVICAL CT: Osseous fusion of the C5 and 6 vertebral bodies. There is no evidence of acute cervical fracture. The odontoid process is intact. Pre-dens space is normal. Prevertebral soft tissue is no rmal. There are no soft tissue abnormalities identified. There is no disc space widening or traumat ic vertebral body subluxation suspected. Overall moderate cervical spondylosis. Large anteriorly bas ed endplate osteophytes C4-5 and 3 4. A detailed level by level evaluation of spondylosis can be add ed as addendum if requested. IMPRESSION: 1. No acute intracranial findings or cervical fracture. 2. Microangiopathy and atrophy. 3. Cervical spondylosis. Reviewed, dictated and finalized at location B. TERPERSON IMPRESSION: 1. No acute intracranial findings or cervical fracture. 2. Microangiopathy and atrophy. 3. Cervical spondylosis.
--- NOTE | ~2021-08-13 | CT_ITS ---
EXAMINATION: CT abdomen pelvis w con DATE: 08/14/2021 11:29 INDICATION: Abdominal tenderness TECHNIQUE: Spiral CT of the abdomen and pelvis was performed following intravenous injection of 100 m L Omnipaque 350. Axial, coronal and sagittal images of the abdomen and pelvis were reviewed. The do se-length product (DLP) for this examination was 631.10 mGy-cm. The exposure was tailored according to patient size (auto mA exposure control), and iterative reconstruction (ASIR) was used as additiona l dose reduction technique. Comparison is made to prior examination from 09/13/2020. FINDINGS: There is approximately 2 cm region along the right pelvic anterior abdominal musculature, j ust above the inguinal canal, which could be small hematoma, or less likely soft tissue mass. This wa s not present on previous examination. Does this correlate with location of tenderness? Was there any recent procedure in this location? The liver, spleen, adrenal glands and pancreas are unremarkable. There are cholecystectomy clips. P ortal and splenic veins are patent. Kidneys enhance symmetrically. There is no hydronephrosis. Th e uterus is not identified and has likely been surgically resected. The bladder is unremarkable. Th ere is no retroperitoneal or pelvic lymphadenopathy. There is moderate scattered arteriosclerotic d isease. There are no findings to suggest appendicitis. The stomach and small bowel are unremarkable. There is moderate amount of colonic stool. No free intraperitoneal gas. The heart is normal in size. T here are no pericardial or pleural effusions. The lung bases are unremarkable. There is treated L2 compression fracture. There are no osteoblastic or osteolytic lesions identified. Severe L5-S1 face t arthropathy. IMPRESSION: 1. Small right lower abdominal/pelvic intramuscular hematoma or less likely mass. Clinical correlati on. 2. Moderate colonic stool. Reviewed, dictated and finalized at location A. ABLE TRACK LINE MARKER IMPRESSION: 1. Small right lower abdominal/pelvic intramuscular hematoma or less likely ma ss. Clinical correlation. 2. Moderate colonic stool.
--- NOTE | ~2021-08-13 | MR_ITS ---
EXAMINATION: MR brain/brain stem wo/w con EXAM DATE: 08/14/2021 11:12 INDICATION: Multiple syncopal episodes . TECHNIQUE: Magnetic resonance imaging (MRI) of the brain/brain stem obtained without contrast. Sagit miles T1, axial diffusion, gradient echo (T2*), T1, T2, FLAIR sequences obtained. Patient was then inj ected with 15 cc intravenous Multihance contrast. Axial and coronal postcontrast T1 weighted sequence s obtained. Comparison is made to prior examination from 03/13/2019. FINDINGS: There are no areas of restricted diffusion to suggest acute infarction. There is no acute hemorrhage seen on the T2*, a hemosiderin sensitive sequence. No intraparenchymal brain mass lesion. There is moderate periventricular and subcortical T2/FLAIR signal hyperintensity, nonspecific but pr obably related to small vessel ischemic disease (microangiopathy). There are no extra-axial collecti ons. Flow voids are seen in the cerebral arteries on the T2-weighted sequences consistent with their expected patency. The orbits are unremarkable. Soft tissue is unremarkable. There are no areas of abnormal enhancement on the postcontrast images. There is no significant interval change. IMPRESSION: 1. No acute intracranial findings. 2. Chronic age related findings. Reviewed, dictated and finalized at location B. NER AND DYER
--- NOTE | ~2021-08-13 | XR_ITS ---
EXAMINATION: XR chest 1V EXAM DATE: 08/13/2021 10:07 INDICATION: non specific chest pain, hx of heart surgery 1996, loop 2020 . TECHNIQUE: Portable AP frontal chest x-ray was obtained. Comparison is made to prior examination from 06/04/2021. FINDINGS: Sternotomy wires are present without findings to suggest sternal dehiscence. Cardiac monito ring device. Coronary artery stents. There are cholecystectomy clips. Upper lumbar vertebroplasty. No confluent consolidation, pneumothorax or pleural effusion suspected. Cardiomediastinal silhouette is normal. There is old right 6th rib fracture. Patient has diffuse idiopathic skeletal hyperostosis (DISH). IMPRESSION: No acute cardiopulmonary findings. Reviewed, dictated and finalized at location B. LYST SUPERVISOR
--- NOTE | 2021-08-13 09:15 | ECG_ITS ---
Measurements Intervals Alfred Rate: 87 P: 56 [place]: 194 QRS: 40 QRSD: 85 T: 48 QT: 360 QTc: 435 Interpretive Statements SINUS RHYTHM WITH SINUS ARRHYTHMIA CANNOT RULE OUT SEPTAL INFARCT, AGE INDETERMINATE BORDERLINE ST-T WAVE ABNORMALITY- HIGH LATERAL LEADS ABNORMAL ECG Electronically Signed On 08-13-2021 14:08:43 DATA WAREHOUSE SPECIALIST by Naldo Tamayo D.O.
[2021-08-13] MEDS: SODIUM CHLORIDE 0.9% IV 1,000 ML 999 ML IV CONT (09:37)
[2021-08-13 10:11] LABS: Basophils Absolute Auto 0.1 K/mm3 (0.0-0.1); Basophils Percent Auto 0.7 % (0.2-1.2); Eosinophils Absolute Auto 0.2 K/mm3 (0-0.3); Eosinophils Percent Auto 1.5 % (0-4.4); Hematocrit 37.1 % (37.0-47.0); Hemoglobin 11.4 g/dL (12.0-15.0); Immature Granulocyte Absolute 0.03 K/mm3 (0.00-0.031); Immature Granulocyte Percent A 0.3 % (0-0.5); Lymphocytes Absolute Auto 3.27 K/mm3 (0.9-3.2); Lymphocytes Percent Auto 31.9 % (18.3-44.2); Mean Corpuscular HGB Conc 30.7 g/dl (32-36); Mean Corpuscular Hemoglobin 24.1 pg (26-34); Mean Corpuscular Volume 78.4 fl (80-100); Mean Platelet Volume 9.1 fl (7.4-10.4); Monocytes Absolute Auto 0.9 K/mm3 (0.1-0.6); Monocytes Percent Auto 9.2 % (2.6-8.5); Neutrophils Absolute Auto 5.8 K/mm3 (1.3-6.7); Neutrophils Percent Auto 56.4 % (45.5-73.1); Platelet Count Result 430 k/mm3 (150-375); Red Blood Count 4.73 M/mm3 (4.2-5.4); Red Cell Distribution Width 15.9 % (11.5-14.5); White Blood Count 10.3 K/mm3 (4.5-10.0)
[2021-08-13 10:25] LABS: INR 1.2; Partial Thromboplastin Time 30.3 SECONDS (22.3-36.8); Prothrombin Time 15.3 Seconds (11.1-14.7)
--- NOTE | 2021-08-13 10:33 | ED.GENADULT ---
HPI - General Adult General Chief complaint: Syncope <ALEX Miller Last Filed: 08/13/21 13:48> Stated complaint: fall, syncope, headache <ALEX Miller Last Filed: 08/13/21 13:48> Time Seen by Provider: 08/13/21 09:08 <ALEX Miller Last Filed: 08/13/21 13:48> Source: patient and RN notes reviewed <ALEX Miller Last Filed: 08/13/21 13:48> Mode of arrival: ambulatory <ALEX Miller Last Filed: 08/13/21 13:48> Limitations: no limitations <ALEX Miller Last Filed: 08/13/21 13:48> History of Present Illness HPI narrative: Patient is a 75-year-old female who presents after having a syncopal episode last night she notes history of frequent syncope which is being worked up she currently has a loop recorder for this she denies any major injuries from her syncopal episode last night noting that she slid down the wall she does note that a week prior she sustained a syncopal episode where she was unconscious for 3 hours she did not seek help after this she presents with contusions to the face. Patient also has healing bruise to the anterior left knee. Patient notes that she has had headaches since as well as neck pain patient lives at home with family. Patient notes she had mild chest discomfort prior to the syncopal episode last night. Patient is currently on anticoagulants. Patient on arrival in the room nondistressed presents with family denies any URI symptoms rectal bleeding or melena <ALEX Miller Last Filed: 08/13/21 13:48> Related Data Home medications: Home Medications Medication Instructions Recorded Confirmed atorvastatin 20 mg tablet 20 mg PO DAILY 09/26/19 08/13/21 metoprolol succinate 50 mg PO DAILY 04/29/20 08/13/21 Farxiga 10 mg DAILY 09/18/20 08/13/21 Ozempic 0.25 - 0.5 mg SUBCUT WEEKLY 09/18/20 08/13/21 ezetimibe 10 mg PO DAILY 09/18/20 08/13/21 icosapent ethyl [Vascepa] 1 g PO BID 09/18/20 08/13/21 pantoprazole 80 mg PO DAILY 10/03/20 08/13/21 dicyclomine 20 mg tablet 20 mg PO BID 04/23/21 08/13/21 furosemide 40 mg tablet 40 mg PO QAM 04/23/21 08/13/21 potassium chloride 10 mEq 10 meq PO DAILY 04/23/21 08/13/21 tablet,extended release insulin glargine [Lantus Solostar 1 unit SUBCUT 05/03/21 U-100 Insulin] ticagrelor [Brilinta] 90 mg PO DAILY 05/03/21 <Esteban King PA-C - Last Filed: 08/13/21 13:48> Allergies/adverse reactions: Allergies Allergy/AdvReac Type Severity Reaction Status Date / Time ranolazine Allergy Intermediate Unknown Verified 04/14/21 10:33 gabapentin Allergy Mild Confusion Verified 04/14/21 10:33 cyclobenzaprine Allergy Unknown Unknown Verified 04/14/21 10:33 fentanyl Allergy Unknown Unknown Verified 04/14/21 10:33 ciprofloxacin [From Cipro] Allergy Unknown Verified 04/14/21 10:33 doxycycline Allergy Unknown Verified 04/14/21 10:33 <Esteban King PA-C - Last Filed: 08/13/21 13:48> Review of Systems Review of Systems: All systems reviewed & are unremarkable except as noted in HPI and below <Esteban King PA-C - Last Filed: 08/13/21 13:48> [facility] Past Medical History Medical History: Medical History Anemia Anxiety Back pain CAD (coronary artery disease) Cataracts, bilateral CHF (congestive heart failure) Colitis Crohn's disease Depression Depression with anxiety Diabetes mellitus DVT (deep venous thrombosis) Fibromyalgia Gastrointestinal ulcer GERD (gastroesophageal reflux disease) History of angina HLD (hyperlipidemia) HTN (hypertension) Hypothyroidism IBS (irritable bowel syndrome) Kidney stones TIA (transient ischemic attack) UTI (urinary tract infection) <Esteban King PA-C - Last Filed: 08/13/21 13:48> Surgical History Surgical History: Surgical History H/O cataract extraction History of blad
[2021-08-13 12:44] LABS: Alanine Aminotransferase 14 U/L (4-35); Albumin Level 4.3 g/dL (3.5-5.1); Alkaline Phosphatase 117 U/L (38-126); Anion Gap 13 mmol/L (8-16); Aspartate Amino Transferase 23 U/L (14-36); Bilirubin,Total 0.3 mg/dL (0.2-1.3); Blood Urea Nitrogen 20 mg/dL (7-17); Calcium 10.2 mg/dL (8.4-10.2); Carbon Dioxide 26 mmol/L (22-30); Chloride 100 mmol/L (98-107); Estimated CRCL calculation 34 ml/min; Estimated Glomerular Filt Rate 54; Glucose 151 mg/dL (65-110); Potassium 3.5 mmol/L (3.4-5.0); Sodium 139 mmol/L (137-145)
[2021-08-13 12:57] LABS: NT Pro B Type Natriuretic Pept 199 pg/mL (5-100); Troponin I < 0.012 ng/mL (0.000-0.034)
[2021-08-13] MEDS: LACTATED RINGERS 1,000 ML 80 ML IV CONT (14:02)
[2021-08-13 14:52] LABS: SARS-CoV-2 RNA PCR Negative
--- NOTE | 2021-08-13 19:01 | ADMGEN ---
This patient, Osvaldo Rawls, was admitted to Medical Room 349-01. Patient/family oriented to hospital policies and general routines including ID bracelet, bed and alarms, visiting hours, pain management, procedures, bathroom and other care routines, personal items, smoking policy, room service/diet, and visiting hours. Information on how to activate the Rapid Response Team has been discussed. Patient/Family are encouraged to report perceived risks to care and to ask questions if they do not understand what they are told or what they should do.
[2021-08-13 20:45] LABS: Glucose Point of Care 173 mg/dl (65-105)
[2021-08-14] VITALS (14 sets, daily range): BP systolic 112–153; BP diastolic 44–91; PULSE 54–88; RESP 16–20; TEMP 36.1–36.7; O2SAT 100
--- NOTE | 2021-08-14 | ECHO_ITS ---
Patient Info Name: Osvaldo Rawls Age: 75 years : 1945 Gender: Female Ht: 62 in Wt: 174 lbs BSA: 1.89 m2 HR: 67 bpm BP: 122 / 44 mmHg Heart Rhythm: Sinus Rhythm Exam Date: 08/14/2021 1:50 PM Exam Location: [facility] Patient Status: Inpatient Admit Date: 08/14/2021 Staff Ordering Physician: Sobia Ram NP Technical Services Assistant: David Shepherd RDCS, RT Attending Provider: Jyoti Lancaster PA-C Referring Physician: Yo CHRISTOPHER; Exam Type: CA echo doppler color flow Study Info Indications R55 - Syncope and collapse Complete two-dimensional, color flow and Doppler transthoracic echocardiogram is performed. Strain analysis performed. Summary 1. Complete two-dimensional, color flow and Doppler transthoracic echocardiogram is performed. 2. Strain analysis performed. 3. Left ventricular chamber dimension is normal. 4. Left ventricular systolic function is normal, estimated at 65-70%. 5. There is mildly increased left ventricular wall thickness. 6. The left ventricular diastolic function is grade I diastolic dysfunction. 7. Global longitudinal strain is borderline at -16 %. 8. Left atrial chamber dimension is mildly enlarged. 9. There is moderate aortic valve stenosis with a peak velocity of 249 cm/s, mean gradient of 12 mmHg, and aortic valve area of 1.1 cm2. 10. There is mild to moderate aortic valve regurgitation. 11. There is mild aortic valve calcification. 12. The mitral valve has thickened leaflets and calcified leaflets. 13. There is mild tricuspid valve regurgitation. Left Ventricle Left ventricular chamber dimension is normal. Left ventricular systolic function is normal, estimated at 65-70%. There is mildly increased left ventricular wall thickness. The left ventricular diastolic function is grade I diastolic dysfunction. Global longitudinal strain is borderline at -16 %. Right Ventricle Right ventricular chamber dimension is normal. Right ventricular systolic function is normal. Left Atria Left atrial chamber dimension is mildly enlarged. Right Atria Right atrial chamber dimension is normal. Atrial Septum Intact interatrial septum visualized by color flow imaging. Aortic Valve The aortic valve is trileaflet. There is moderate aortic valve stenosis with a peak velocity of 249 cm/s, mean gradient of 12 mmHg, and aortic valve area of 1.1 cm2. There is mild to moderate aortic valve regurgitation. There is mild aortic valve calcification. Pulmonic Valve The pulmonic valve is normal. There is no pulmonic valve stenosis. There is trace pulmonic regurgitation. Mitral Valve The mitral valve has thickened leaflets and calcified leaflets. There is no mitral valve stenosis. There is trace mitral valve regurgitation. Tricuspid Valve The tricuspid valve leaflets are normal. There is no significant tricuspid valve stenosis. There is mild tricuspid valve regurgitation. Pericardium/Pleural The pericardium appears normal. Inferior Vena Cava Normal inferior vena cava with >50% collapse upon inspiration consistent with normal right atrial pressure, 5 mmHg. Aorta The aortic root size at the sinus of Valsalva is normal. There is mild aortic atherosclerosis. Left Ventricular Outflow Tract Name Value Normal LVOT 2D
[2021-08-14] MEDS: LACTATED RINGERS 1,000 ML 80 ML IV CONT (01:58)
--- NOTE | 2021-08-14 02:11 | PM.IMHP ---
H&P: HPI History of Present Illness Date/Time: 08/13/21 2300 this is a 75-year-old female patient who has had multiple syncopal episodes. The patient stated that she had a syncopal episode last night and she recently received a loop recorder. However the patient stated that she did call the number for the loop recorder and they told her that there was no arrhythmias. The patient stated that she was noted to have staring episodes and does not recall the events. The patient stated that she is due to see a neurologist in the near future. Patient noted that the week prior she also had a syncopal episode which was unconscious for 3 hours and has a bruise over her left knee and she now has a bruise to her left eye that is purple. The patient had no complaints of any dizziness. She is not on any anticoagulants. She is awake and very talkative. The patient complained of some lower abdominal tenderness But had no bruising is noted on her abdomen. Her white count was noted to be 10.3 which could be reactive. Her H&H 11.4 and 37.1. Patient did not notice any blood in stool and has not been vomiting. Platelets are 430. Her blood sugar was 151 and 173. Chest x-ray was read as no acute cardiopulmonary findings. Head CT was read as no acute intracranial findings are cervical fracture. Microcephaly and atropine. Cervical spondylosis. The patient was given IV fluids and IV Tylenol. The patient is being admitted to observation status on 08/13/2021. Chief Complaint: Syncopal event Review of Systems Review of Systems: All systems reviewed & are unremarkable except as noted in HPI and below Constitutional: Constitutional: Reports as per HPI and Reports no additional constitutional complaints Eyes: Eyes: Reports as per HPI and Reports no additional eye complaints ENT: Reports system reviewed and no additional complaints, except as documented and Reports Normal hearing present Cardiovascular: Cardiovascular: Reports no additional cardiovascular complaints Respiratory: Respiratory: Reports no additional respiratory complaints and Reports no additional respiratory complaints Gastrointestinal: Gastrointestinal: Reports as per HPI and Reports no additional gastrointestinal complaints Musculoskeletal: Musculoskeletal: Reports no additional musculoskeletal complaints Integumentary/Breasts: Skin/Breast: Reports system reviewed and no additional complaints, except as docu and Reports as per HPI Neurologic: Reports system reviewed and no additional complaints, except as documented, Reports as per HPI and Reports Normal hearing present Psychiatric: Psychiatric: Reports no additional psychiatric complaints and Reports as per HPI Endocrine: Endocrine: Reports no additional endocrine complaints Hematologic/Lymphatic: Hematologic/Lymphatic: Reports no additional hematologic/lymphatic complaints Allergic/Immunologic: Allergic/Immunologic: Reports no additional allergic/immunologic complaints [facility] Past Medical History Medical History Anemia Anxiety Back pain CAD (coronary artery disease) Cataracts, bilateral CHF (congestive heart failure) Colitis Crohn's disease Depression Depression with anxiety Diabetes mellitus DVT (deep venous thrombosis) Fibromyalgia Gastrointestinal ulcer GERD (gastroesophageal reflux disease) History of angina HLD (hyperlipidemia) HTN (hypertension) Hypothyroidism IBS (irritable bowel syndrome) Kidney stones TIA (transient ischemic attack) UTI (urinary tract infection) Surgical History Surgical History (Updated 08/14/21 @ 02:24 by Sobia Ram NP) H/O cataract extraction H/O heart artery stent History of bladder surgery History of hysterectomy History of loop recorder History of right knee joint replacement Hx of appendectomy Hx of CABG Hx of cardiac catheterization Hx of cholecystectomy Hx of spinal surgery S/P peripheral artery angioplasty with stent pl
[2021-08-14 03:10] LABS: Glucose Point of Care 95 mg/dl (65-105)
[2021-08-14 06:41] LABS: Basophils Absolute Auto 0.1 K/mm3 (0.0-0.1); Basophils Percent Auto 0.7 % (0.2-1.2); Eosinophils Absolute Auto 0.1 K/mm3 (0-0.3); Eosinophils Percent Auto 1.4 % (0-4.4); Hemoglobin 10.5 g/dL (12.0-15.0); Immature Granulocyte Absolute 0.02 K/mm3 (0.00-0.031); Immature Granulocyte Percent A 0.2 % (0-0.5); Mean Corpuscular HGB Conc 30.9 g/dl (32-36); Mean Corpuscular Hemoglobin 24.5 pg (26-34); Mean Corpuscular Volume 79.3 fl (80-100); Monocytes Absolute Auto 0.9 K/mm3 (0.1-0.6); Monocytes Percent Auto 8.6 % (2.6-8.5); Neutrophils Absolute Auto 5.5 K/mm3 (1.3-6.7); Neutrophils Percent Auto 55.1 % (45.5-73.1); Platelet Count Result 388 k/mm3 (150-375); Red Blood Count 4.29 M/mm3 (4.2-5.4); Red Cell Distribution Width 15.9 % (11.5-14.5)
[2021-08-14 07:03] LABS: Anion Gap 10 mmol/L (8-16); Blood Urea Nitrogen 16 mg/dL (7-17); Calcium 9.2 mg/dL (8.4-10.2); Carbon Dioxide 28 mmol/L (22-30); Chloride 99 mmol/L (98-107); Estimated CRCL calculation 42 ml/min; Estimated Glomerular Filt Rate 54; Glucose 113 mg/dL (65-110); Magnesium 1.9 mg/dL (1.6-2.3); Phosphorus 3.9 mg/dL (2.5-4.5); Potassium 2.7 mmol/L (3.4-5.0); Sodium 137 mmol/L (137-145)
[2021-08-14 07:30] LABS: Hemoglobin A1C 7.5 % (<5.7)
[2021-08-14 07:32] LABS: Thyroid Stimulating Hormone Reflex 0.106 uIU/mL (0.465-4.68)
[2021-08-14] MEDS: POTASSIUM CHLORIDE 20 MEQ TABLET 60 MEQ PO (08:02)
[2021-08-14] MEDS: POTASSIUM CHLORIDE 10 MEQ TABLET.ER PO (08:03)
[2021-08-14 08:04] LABS: Glucose Point of Care 119 mg/dl (65-105)
[2021-08-14] MEDS: FUROSEMIDE 40 MG TABLET PO (08:04)
[2021-08-14] MEDS: OMEGA 3 POLYUNSAT FATTY ACIDS 1 GM CAP 2 GM PO ×2 (08:04→17:46)
[2021-08-14] MEDS: SERTRALINE HCL 50 MG TABLET PO (08:04)
[2021-08-14] MEDS: EMPAGLIFLOZIN 25 MG TABLET BY MOUTH (08:04)
[2021-08-14] MEDS: TICAGRELOR 90 MG TABLET PO (08:04)
[2021-08-14] MEDS: PANTOPRAZOLE 40 MG TABLET 80 MG PO (08:04)
[2021-08-14] MEDS: METOPROLOL SUCCINATE EXT REL 50 MG TABCR PO (08:05)
[2021-08-14] MEDS: EZETIMIBE 10 MG TABLET PO (08:05)
[2021-08-14] MEDS: DICYCLOMINE HCL 10 MG CAPSULE 20 MG PO ×2 (08:05→17:46)
[2021-08-14] MEDS: ATORVASTATIN 20 MG TABLET PO (08:07)
[2021-08-14] MEDS: ALPRAZolam (*CRX) 0.5 MG TABLET PO ×2 (08:12→21:25)
[2021-08-14 09:15] LABS: Free T4 Free Thyroxine Reflex 1.07 ng/dL (0.78-2.19)
[2021-08-14 09:19] LABS: Iron 47 ug/dL (37-170)
[2021-08-14 09:27] LABS: Transferrin 280 mg/dL (206-381)
[2021-08-14 09:28] LABS: Percent Iron Saturation 13 % (20-50)
[2021-08-14 10:16] LABS: Folic Acid 10.4 ng/mL (2.76->20)
[2021-08-14 10:45] LABS: Add Urine Microscopic? YES; Appearance Urine Clear (Clear); Bilirubin Urine Negative (Negative); Blood Urine Negative (Negative); Color Urine Colorless (Yellow); Glucose Urine UA 3+ mg/dL (Negative); Ketones Urine Negative (Negative); Leukocyte Esterase Ur Negative LEU/UL (Negative); Mucus Urine Rare /lpf; Nitrate Urine Negative (Negative); Protein Urine Negative (Negative); RBC Urine 0-2 /hpf (0-2); Specific Grav Ur 1.006 (1.001-1.035); Urobilinogen Urine Negative mg/dL (<2.0); WBC Urine 0-3 /hpf
--- NOTE | 2021-08-14 10:52 | PM.IMPN ---
Progress Note: A&P Assessment and Plan (1) Syncope: Code(s): R55 - Syncope and collapse Status: Acute Assessment and Plan: She states she fell 10 days ago striking her left head to the ground and since then she has had intermittent sharp stabbing headaches to her upper part of her head and into her ears. She also reports her last fall was 2 days ago when she had a syncopal episode. She has a history of orthostatic hypotension and states she is faithful to wearing her compression stockings daily. The patient said that she has a loop recorder in place and states that none of her syncopal episodes have ever been correlated with any arrhythmia or heart abnormality. She is currently on Toprol XR 50 mg daily and Lasix which could be intermittently affecting her blood pressure and causing worsening orthostatic hypotension. Orthostatics this morning were positive with a drop from 132 systolic to 112 with sitting up. We will apply Óscar hose and recheck orthostatics. Further workup being completed with echocardiogram and MRI Neurology consultation was put in by the admitting provider Continue monitoring symptoms. (2) Head injury: Code(s): S09.90XA - Unspecified injury of head, initial encounter Status: Acute Assessment and Plan: The patient has a bruise to the left eye. Nothing acute was on the CT the brain. Will further evaluate with MRI Patient is reporting headaches since her fall we will talk to the neurologist about this Continue monitoring. (3) Type 2 diabetes mellitus with hyperglycemia, with long-term current use of insulin: Code(s): E11.65 - Type 2 diabetes mellitus with hyperglycemia; Z79.4 - care home (current) use of insulin Status: Acute Assessment and Plan: Continue home Lantus. Will hold metformin. Accu-Cheks AC and HS. Sliding scale insulin. Hypoglycemic protocol in place. (4) HLD (hyperlipidemia): Code(s): E78.5 - Hyperlipidemia, unspecified Status: Chronic Assessment and Plan: Continue with atorvastatin (5) Anxiety: Code(s): F41.9 - Anxiety disorder, unspecified Status: Acute Assessment and Plan: Continue with Apresoline (6) Hypothyroidism: Code(s): E03.9 - Hypothyroidism, unspecified Status: Chronic Assessment and Plan: Patient tells me she has a history of multi nodule goiter and a past history of hypothyroidism but but has been off levothyroxine for 2 or 3 years now. She states she recently got a new primary care doctor in [facility] and she has a follow-up with him in the next 2 weeks. She said at this visit with him she is going to have her thyroid level reach checked as well as a another thyroid ultrasound of her multi nodule goiter. I went over symptoms with the patient which would be pertaining to hyperthyroidism in the only abnormality was weight loss of 40 lb over the last 6 months without trying. Patient does states she has history of irritable bowel disease. I explained to her that her TSH was found to be low at 0.106, free T4 and total T3 were normal. This diagnosis is subclinical hyperthyroidism. Since she has all this scheduled as an outpatient with her primary care I will have them continue managing it as an outpatient with further workup and evaluation. Continue with home medication. (7) CAD (coronary artery disease): Code(s): I25.10 - Atherosclerotic heart disease of [place] coronary artery without angina pectoris Status: Acute Assessment and Plan: Continue with Brilinta as prescribed for home dose. The patient tells me that she has multiple coronary stents. Continue with atorvastatin i
[2021-08-14 12:37] LABS: Glucose Point of Care 128 mg/dl (65-105)
--- NOTE | 2021-08-14 14:07 | WPDNEURCNPN ---
Assessment and Plan Additional Plan 1 close head trauma with superficial injury to periorbital area 2. Acute syncopal episode with no documentation of abnormalities on the loop recorder as per the information 3. Diabetes mellitus insulin-dependent with peripheral neuropathy 4. Under lying anxiety disorder plan is to continue the treatment as such. SARS-CoV-2 COVID test is negative 5. Right lower abdominal pelvic intramuscular hematoma for which she will need follow-up x-rays differentiate from the possibility of a mass 6. Normal MRI Consult date: 08/15/21 HPI: Osvaldo Rawls is a 75 year old female has been admitted to the hospital with the complaints of multiple syncopal episodes and with the information that recently she had a syncopal episode last night. She had received a loop recorder however she did call the number for the loop recorder and they told her that there was no arrhythmia. She also reported that she was noted to have staring episode with inability to recall the events a week prior to this incident she had and syncopal episode and she was unconscious for 3 hours sustained a bruise over her left knee and on her left eye. she does not give history of any dizziness, no history of any anticoagulants, complained of mild abdominal tenderness with no history of blood in the stool and hemoglobin documented to be 11.4 with blood sugar of [address] scan of the head was negative for the bleed space-occupying lesion and the CT scan the cervical spine was negative for the Ana fracture dislocation, she does have ongoing history of anxiety, chronic back pain, coronary artery disease with congestive heart failure, depression diabetes mellitus, in addition to multiple other medical problems, is not a smoker not a drinker , her starts COVID testing is negative, initial chemistry was suggestive of potassium only 2.7 and normal UA with glycosuria Review of Systems Review of Systems: All systems reviewed & are unremarkable except as noted in HPI and below PMFSH Past Medical History Medical History Anemia Anxiety Back pain CAD (coronary artery disease) Cataracts, bilateral CHF (congestive heart failure) Colitis Crohn's disease Depression Depression with anxiety Diabetes mellitus DVT (deep venous thrombosis) Fibromyalgia Gastrointestinal ulcer GERD (gastroesophageal reflux disease) History of angina HLD (hyperlipidemia) HTN (hypertension) Hypothyroidism IBS (irritable bowel syndrome) Kidney stones TIA (transient ischemic attack) UTI (urinary tract infection) Surgical History Surgical History H/O cataract extraction H/O heart artery stent History of bladder surgery History of hysterectomy History of loop recorder History of right knee joint replacement Hx of appendectomy Hx of CABG Hx of cardiac catheterization Hx of cholecystectomy Hx of spinal surgery S/P peripheral artery angioplasty with stent placement Family History Family History Father Cerebrovascular accident, Onset Age: 62 Family history of coronary artery disease Family history of alcoholism Acute myocardial infarction, Onset Age: 62 Patient's father is Mother Cerebrovascular accident, Onset Age: 84 Patient's mother is Family history of coronary artery disease Family history of diabetes mellitus in first degree relative Asthma Family history of congestive heart failure Family history of heart disease in male family member before age 55 Diabetes mellitus, Onset Age: 84 Family history of gastrointestinal disorder, Onset Age: 84 Family history of cardiovascular disease, Onset Age: 84 Sibling Family history of thyroid disease Diabetes mellitus Carcinoma of colon Patient's sister is Other Family history of kidney disease
[2021-08-14 16:56] LABS: Glucose Point of Care 141 mg/dl (65-105)
[2021-08-14] MEDS: INSULIN GLARGINE (*BKC) 100 UNITS/ML 30 UNITS SUB-Q (17:46)
[2021-08-14] MEDS: LACTATED RINGERS 1,000 ML 50 ML IV CONT (18:07)
[2021-08-14] MEDS: ACETAMINOPHEN 325 MG TABLET 650 MG PO (21:20)
[2021-08-14 21:39] LABS: Glucose Point of Care 141 mg/dl (65-105)
[2021-08-15] VITALS (10 sets, daily range): BP systolic 108–139; BP diastolic 48–79; PULSE 61–88; RESP 18–20; TEMP 36.1–36.8; O2SAT 99–100
[2021-08-15 05:43] LABS: Hematocrit 33.8 % (37.0-47.0); Hemoglobin 10.4 g/dL (12.0-15.0); Mean Corpuscular HGB Conc 30.8 g/dl (32-36); Mean Corpuscular Hemoglobin 24.9 pg (26-34); Mean Corpuscular Volume 80.9 fl (80-100); Mean Platelet Volume 9.5 fl (7.4-10.4); Platelet Count Result 383 k/mm3 (150-375); Red Blood Count 4.18 M/mm3 (4.2-5.4); White Blood Count 8.8 K/mm3 (4.5-10.0)
[2021-08-15 05:52] LABS: Anion Gap 8 mmol/L (8-16); Blood Urea Nitrogen 14 mg/dL (7-17); Calcium 9.2 mg/dL (8.4-10.2); Carbon Dioxide 27 mmol/L (22-30); Chloride 101 mmol/L (98-107); Estimated CRCL calculation 46 ml/min; Estimated Glomerular Filt Rate > 60; Glucose 107 mg/dL (65-110); Magnesium 2.1 mg/dL (1.6-2.3); Potassium 3.5 mmol/L (3.4-5.0); Sodium 136 mmol/L (137-145)
[2021-08-15 07:56] LABS: Glucose Point of Care 74 mg/dl (65-105)
[2021-08-15] MEDS: ATORVASTATIN 20 MG TABLET PO (08:27)
[2021-08-15] MEDS: OMEGA 3 POLYUNSAT FATTY ACIDS 1 GM CAP 2 GM PO (08:27)
[2021-08-15] MEDS: METOPROLOL SUCCINATE EXT REL 50 MG TABCR PO (08:27)
[2021-08-15] MEDS: EMPAGLIFLOZIN 25 MG TABLET BY MOUTH (08:27)
[2021-08-15] MEDS: SERTRALINE HCL 50 MG TABLET PO (08:27)
[2021-08-15] MEDS: FUROSEMIDE 40 MG TABLET PO (08:27)
[2021-08-15] MEDS: TICAGRELOR 90 MG TABLET PO (08:27)
[2021-08-15] MEDS: EZETIMIBE 10 MG TABLET PO (08:27)
[2021-08-15] MEDS: PANTOPRAZOLE 40 MG TABLET 80 MG PO (08:28)
[2021-08-15] MEDS: POTASSIUM CHLORIDE 10 MEQ TABLET.ER PO (08:28)
[2021-08-15] MEDS: DICYCLOMINE HCL 10 MG CAPSULE 20 MG PO (08:28)
[2021-08-15 12:16] LABS: Glucose Point of Care 120 mg/dl (65-105)
[2021-08-15] MEDS: DOCUSATE SODIUM 100 MG CAPSULE PO (13:04)
--- NOTE | 2021-08-15 14:00 | PM.DS ---
DS: Admitting Diagnosis Discharge Date 08/15/21 Admitting Diagnosis Syncope/Fall DS: Discharge Diagnosis Discharge Diagnosis (1) Syncope: Code(s): R55 - Syncope and collapse Status: Acute Assessment and Plan: The patient is a 75 year old woman with a history of orthostatic hypotension with loop recorder in place, CAD, CHF, DM, HTN, HLD, Hypothyroidism, who presented to the ER with multiple falls recently and syncopal episodes. She states she fell 10 days ago striking her left head to the ground and since then she has had intermittent sharp stabbing headaches to her upper part of her head and into her ears. She also reports her last fall was 2 days ago when she had a syncopal episode. She has a history of orthostatic hypotension and states she is faithful to wearing her compression stockings daily. The patient said that she has a loop recorder in place and states that none of her syncopal episodes have ever been correlated with any arrhythmia or heart abnormality. She is currently on Toprol XR 50 mg daily and Lasix which could be intermittently affecting her blood pressure and causing worsening orthostatic hypotension. CT Head and cervical spine showed No acute intracranial findings or cervical fracture. Microangiopathy and atrophy. Cervical spondylosis. CxR showed No acute cardiopulmonary findings. Carotid US showed 50-69% stenosis in the right internal carotid artery. <50% stenosis in the left internal carotid artery. Patient states she is aware of her R carotid having 52% blockage and states her quality assistant is monitoring and she sees him next week and has an [facility] Follow up with quality assistant. Brain MRI showed No acute intracranial findings. Chronic age related findings. She had abd pain on arrival so CT Abd/ Pelvis was completed showing Small right lower abdominal/pelvic intramuscular hematoma or less likely mass. Clinical correlation. Moderate colonic stool. She takes medications at home-Miralax, stool softeners for this. Told her to continue taking it to help with constipation. Echocardiogram showed normal EF,diastolic grade 1 dysfunction, and Moderate Aortic Stenosis. She was not aware of the Moderate . I told her to follow up with Wax Machine Operator in regards to this as scheduled Wednesday. He can continue monitoring. She was complaining of left hip pain since fall 10 days ago. Hip/Pelvis XR showed No significant abnormality of pelvis or left hip. She has otherwise been walking around well with staff. She was seen by Neurology who did not recommend further evaluation at this time. She is positive for orthostatic hypotension. She was given IV fluid hydration with improvement of her symptoms. She is told to wear Óscar hose all day and take them off before bed. Continue to stay hydrated. Her orthostatics were much improved today and she was asymptomatic with them and walking around. she is stable for discharge to follow up with PCP in 1 week and quality assistant as scheduled Wednesday08/18/21 for further work up and evaluation. (2) Head injury: Code(s): S09.90XA - Unspecified injury of head, initial encounter Status: Acute Assessment and Plan: Feeling well at this time. (3) Type 2 diabetes mellitus with hyperglycemia, with long-term current use of insulin: Code(s): E11.65 - Type 2 diabetes mellitus with hyperglycemia; Z79.4 - identification technician (current) use of insulin Status: Acute Assessment and Plan: Continue home medications at discharge (4) HLD (hyperlipidemia): Code(s): E78.5 - Hyperlipidemia, unspecified Status: Chronic Assessment and Plan: Continue with atorvastatin (5) Anxiety: Code(s): F41.9 - Anxiety disorder, unspecified Status: Ac
== END 2021-08-15 15:15 | disposition home or self-care (01) | DRG 312 ==
LOC: ANHED 13:48 → ANH3MED 15:47
PROVIDERS: Emergency Medicine Emergency Medical Services; Nurse Practitioner; Physician Assistant; Admitting Provider Internal Medicine; Emergency Provider Emergency Medicine; PCP Family Medicine; Visit Provider Internal Medicine
DX: R55 Syncope and collapse (principal); I50.32 Chronic diastolic (congestive) heart failure; I11.0 Hypertensive heart disease with heart failure; R51.9 Headache, unspecified; Z20.822 Contact with and (suspected) exposure to COVID-19; S00.83XA Contusion of other part of head, initial encounter; W19.XXXA Unspecified fall, initial encounter; I35.0 Nonrheumatic aortic (valve) stenosis; E11.65 Type 2 diabetes mellitus with hyperglycemia; D50.9 Iron deficiency anemia, unspecified; E87.6 Hypokalemia; E78.5 Hyperlipidemia, unspecified; F41.8 Other specified anxiety disorders; E03.9 Hypothyroidism, unspecified; I25.10 Atherosclerotic heart disease of native coronary artery without angina pectoris; K21.9 Gastro-esophageal reflux disease without esophagitis; Z79.4 Long term (current) use of insulin; Z79.84 Long term (current) use of oral hypoglycemic drugs; Z79.899 Other long term (current) drug therapy
CPT/HCPCS: 36415; 70450; 70553; 71045; 72125; 73502; 74177; 80048; 80053; 81001; 82607; 82728; 82746; 82948; 83036; 83540; 83550; 83735; 83880; 84100; 84439; 84443; 84466; 84480; 84484; 85025; 85027; 85610; 85730; 93005; 93306; 93880; 96361; 96365; 97161; 97165; 99285; A9270; A9577; C9803; G0378; J0131; J1815; J7030; J7120; Q9967; U0003; U0005

== ENCOUNTER 2021-10-07 14:17 | Outpatient (CLI) | payer OTHER, MEDICAID, SELFPAY ==
--- NOTE | ~2021-10-07 | CT_ITS ---
EXAMINATION:CT diagnostic chest wo con DATE: 10/07/2021 14:41 INDICATION: Weight loss. TECHNIQUE: Computed tomography (CT) of the chest was performed without intravenous contrast. Automate d exposure control and iterative reconstruction technique were employed. The dose-length product (DLP ) was 179.90 mGy-cm. COMPARISON: CT abdomen and pelvis 08/14/2021, 09/13/2020 FINDINGS: The lungs demonstrate minimal atelectasis. There is a 3 mm nodule in right upper lobe. Ther e are two 3 mm nodules in right middle lobe. There is a 6 mm nodule in right lower lobe, stable from 09/13/20. There is a 3 mm nodule in left lower lobe. These findings are likely benign. No pleural effu jefe. There are nodules in the thyroid measuring up to 10 mm, likely not clinically significant. The heart size is normal. There are coronary artery calcifications. There are changes of coronary artery bypass grafting. No pericardial effusion. There are changes of cholecystectomy. There is an electroni c implant in left anterior chest wall. There are bridging endplate osteophytes at multiple levels in the spine, consistent with diffuse idiopathic skeletal hyperostosis (DISH). There are changes of vert ebroplasty at L1. IMPRESSION: 1. No specific evidence of malignancy. Reviewed, dictated and finalized at location A.
== END 2021-10-07 14:18 | disposition home or self-care (01) ==
LOC: ANHIMG 14:18
PROVIDERS: PCP Family Medicine; Visit Provider Family Medicine
DX: R63.4 Abnormal weight loss (principal)
CPT/HCPCS: 71250

== ENCOUNTER 2022-04-02 10:54 | Emergency (ER) | payer OTHER, MEDICAID, SELFPAY ==
--- NOTE | ~2022-04-02 | XR_ITS ---
EXAMINATION: XR foot LT min 3V DATE: 04/02/2022 11:18 INDICATION: Left second toe injury. TECHNIQUE: 4 views of left foot were obtained. COMPARISON: Left foot radiographs 04/13/2018 FINDINGS: Bone alignment is normal. There is an avulsion fracture of dorsal base of second middle pha lanx. There is mild osteoarthritis of first metatarsophalangeal joint and mild to moderate osteoarthr itis of some of the interphalangeal joints. IMPRESSION: 1. Avulsion fracture of dorsal base of second middle phalanx. 2. Polyarticular osteoarthritis. Reviewed, dictated and finalized at location A.
--- NOTE | 2022-04-02 10:56 | ED.EXTPRO ---
HPI - Extremity Problem General Stated complaint: Left Toe Pain Time Seen by Provider: 04/02/22 10:55 Source: patient Mode of arrival: ambulatory Limitations: no limitations History of Present Illness HPI Narrative: Ms. Rawls is a 76-year-old female patient presenting to the clinic today with complaints of left second toe pain. She reports she thinks she may have stubbed her toe. States that on Wednesday she slipped and rammed her toe into a heavy object. Reports pain to the toe and also radiation into the midfoot Related Data Home Medications Medication Instructions Recorded Confirmed atorvastatin 20 mg tablet 20 mg PO DAILY 09/26/19 08/13/21 dapagliflozin 10 mg tablet 10 mg DAILY 09/18/20 08/13/21 (Farxiga) ezetimibe 10 mg tablet 10 mg PO DAILY 09/18/20 08/13/21 icosapent ethyl 1 gram capsule 1 g PO BID 09/18/20 08/13/21 (Vascepa) semaglutide 0.25 mg or 0.5 mg (2 0.25 - 0.5 mg subcut WEEKLY 09/18/20 08/13/21 mg/1.5 mL) subcutaneous pen injector (Ozempic) pantoprazole 40 mg tablet,delayed 80 mg PO DAILY 10/03/20 08/13/21 release dicyclomine 20 mg tablet 20 mg PO BID 04/23/21 08/13/21 furosemide 40 mg tablet 40 mg PO QAM 04/23/21 08/13/21 ticagrelor 90 mg tablet (Brilinta) 90 mg PO DAILY 05/03/21 08/13/21 buspirone 5 mg tablet 5 mg PO DAILY 04/02/22 04/02/22 methimazole 5 mg tablet 10 mg PO DAILY 04/02/22 04/02/22 metoprolol succinate 25 mg 25 mg PO DAILY 04/02/22 04/02/22 tablet,extended release 24 hr potassium chloride 20 mEq 20 meq PO DAILY 04/02/22 04/02/22 tablet,extended release(part/cryst) (Klor-Con M) sertraline 100 mg tablet 100 mg PO DAILY 04/02/22 04/02/22 sulfamethoxazole 800 1 tablet PO BID 04/02/22 04/02/22 mg-trimethoprim 160 mg tablet Allergies Allergy/AdvReac Type Severity Reaction Status Date / Time ranolazine Allergy Intermediate Unknown Verified 04/02/22 11:06 gabapentin Allergy Mild Confusion Verified 04/02/22 11:06 cyclobenzaprine Allergy Unknown Unknown Verified 04/02/22 11:06 fentanyl Allergy Unknown Unknown Verified 04/02/22 11:06 ciprofloxacin [From Cipro] Allergy Unknown Verified 04/02/22 11:06 doxycycline Allergy Unknown Verified 04/02/22 11:06 Review of Systems Review of Systems: Pertinent positives per HPI. Patient denies any fever, chills, rash, headache, visual changes, dizziness, cough, runny nose, sore throat, shortness of breath, chest pain, palpitations, nausea, vomiting, diarrhea, constipation, abdominal pain, or any urinary issues. COUNTS INCLUDE 234 BEDS AT THE [facility] Past Medical History Medical History Anemia Anxiety Back pain CAD (coronary artery disease) Cataracts, bilateral CHF (congestive heart failure) Colitis Crohn's disease Depression Depression with anxiety Diabetes mellitus DVT (deep venous thrombosis) Fibromyalgia Gastrointestinal ulcer GERD (gastroesophageal reflux disease) History of angina HLD (hyperlipidemia) HTN (hypertension) Hypothyroidism IBS (irritable bowel syndrome) Kidney stones TIA (transient ischemic attack) UTI (urinary tract infection) Surgical History Surgical History H/O cataract extraction H/O heart artery stent History of bladder surgery History of hysterectomy History of loop recorder History of right knee joint replacement Hx of appendectomy Hx of CABG Hx of cardiac catheterization Hx of cholecystectomy Hx of spinal surgery S/P peripheral artery angioplasty with stent placement Family History Family History Father Cerebrovascular accident, Onset Age: 62 Family history of coronary artery disease Family history of alcoholism Acute myocardial infarction, Onset Age: 62 Patient's father is Mother Cerebrovascular accident, Onset Age: 84 Family history of coronary artery disease Family history of diabetes mellitus
[2022-04-02 11:05] VITALS: BP 118/78; PULSE 81; RESP 16; TEMP 37.2; O2SAT 99
[2022-04-02 11:06] VITALS: BP 118/78; PULSE 81; RESP 16; TEMP 37.2; O2SAT 99
--- NOTE | 2022-04-02 11:29 | PC.NURSE ---
1129- pt back to xray for radiologist request of an additional views.
== END 2022-04-02 12:12 | disposition home or self-care (01) ==
PROVIDERS: Emergency Provider Nurse Practitioner Family; PCP Physician Assistant
DX: S92.512A Displaced fracture of proximal phalanx of left lesser toe(s), initial encounter for closed fracture (principal); X58.XXXA Exposure to other specified factors, initial encounter; I11.0 Hypertensive heart disease with heart failure; I50.9 Heart failure, unspecified; K50.90 Crohn's disease, unspecified, without complications; E11.9 Type 2 diabetes mellitus without complications; Z86.718 Personal history of other venous thrombosis and embolism; M79.7 Fibromyalgia; K21.9 Gastro-esophageal reflux disease without esophagitis; I25.110 Atherosclerotic heart disease of native coronary artery with unstable angina pectoris; E78.5 Hyperlipidemia, unspecified; E03.9 Hypothyroidism, unspecified; Z86.73 Personal history of transient ischemic attack (TIA), and cerebral infarction without residual deficits; Z95.5 Presence of coronary angioplasty implant and graft; Z96.651 Presence of right artificial knee joint; F41.9 Anxiety disorder, unspecified; F32.A Depression, unspecified
CPT/HCPCS: 73630; 99214; G0463

== ENCOUNTER 2022-07-16 11:03 | Outpatient (CLI) | payer OTHER, MEDICAID, SELFPAY ==
[2022-07-16 11:19] LABS: Basophils Absolute Auto 0.1 K/mm3 (0.0-0.1); Basophils Percent Auto 0.8 % (0.2-1.2); Eosinophils Absolute Auto 0.2 K/mm3 (0-0.3); Eosinophils Percent Auto 2.7 % (0-4.4); Hematocrit 31.1 % (37.0-47.0); Hemoglobin 9.5 g/dL (12.0-15.0); Immature Granulocyte Absolute 0.03 K/mm3 (0.00-0.031); Immature Granulocyte Percent A 0.4 % (0-0.5); Lymphocytes Absolute Auto 2.71 K/mm3 (0.9-3.2); Lymphocytes Percent Auto 32.3 % (18.3-44.2); Mean Corpuscular HGB Conc 30.5 g/dl (32-36); Mean Corpuscular Volume 78.5 fl (80-100); Mean Platelet Volume 8.1 fl (7.4-10.4); Monocytes Absolute Auto 0.8 K/mm3 (0.1-0.6); Monocytes Percent Auto 9.2 % (2.6-8.5); Neutrophils Absolute Auto 4.6 K/mm3 (1.3-6.7); Neutrophils Percent Auto 54.6 % (45.5-73.1); Platelet Count Result 383 k/mm3 (150-375); Red Blood Count 3.96 M/mm3 (4.2-5.4); Red Cell Distribution Width 18.1 % (11.5-14.5); White Blood Count 8.4 K/mm3 (4.5-10.0)
[2022-07-16 12:42] LABS: Iron 22 ug/dL (37-170)
[2022-07-16 12:45] LABS: Alanine Aminotransferase 17 U/L (6-35); Alkaline Phosphatase 91 U/L (38-126); Anion Gap 8 mmol/L (8-16); Aspartate Amino Transferase 24 U/L (14-36); Bilirubin,Total 0.3 mg/dL (0.2-1.3); Blood Urea Nitrogen 23 mg/dL (7-17); Calcium 9.1 mg/dL (8.4-10.2); Carbon Dioxide 27 mmol/L (22-30); Chloride 105 mmol/L (98-107); Estimated Glomerular Filt Rate 44; Glucose 146 mg/dL (65-110); Potassium 4.4 mmol/L (3.4-5.0); Sodium 140 mmol/L (137-145)
[2022-07-16 12:54] LABS: Percent Iron Saturation 5 % (20-50)
[2022-07-16 13:21] LABS: Ferritin 7.47 ng/mL (11.1-264)
[2022-07-16 13:53] LABS: Folic Acid 12.7 ng/mL (2.76->20)
[2022-07-20 22:54] LABS: Methylmalonic Acid 167 nmol/L (87-318)
== END 2022-07-16 11:04 | disposition home or self-care (01) ==
LOC: ANHLAB 11:04
PROVIDERS: PCP Physician Assistant; Visit Provider Internal Medicine Hematology & Oncology
DX: D64.9 Anemia, unspecified (principal)
CPT/HCPCS: 36415; 80053; 82607; 82728; 82746; 83540; 83550; 83921; 85025

== ENCOUNTER 2022-07-29 15:47 | Observation (INO) | payer OTHER, MEDICAID, SELFPAY ==
--- NOTE | ~2022-07-29 | CT_ITS ---
EXAMINATION: CT facial & cervical spine wo DATE: 07/29/2022 21:50 INDICATION: fall/ trauma TECHNIQUE: Computed tomography (CT) of the maxillofacial region and cervical spine was performed with out intravenous contrast. Automated exposure control and iterative reconstruction technique were empl oyed. The dose-length product was 443.20 mGy-cm. COMPARISON: 08/13/2021 FINDINGS: CERVICAL: Vertebral Body Alignment: Intact. Craniocervical and atlantoaxial alignment: Moderate degenerative change. Alignment intact. Osseous structures/fracture: No evidence of a lytic or blastic process in the visualized spine. No e vidence of acute fracture. C5-6 fusion. Cervical soft tissues: The paraspinal soft tissues planes are maintained. Heterogeneous thyroid gland . Bilateral carotid bifurcation and aortic arch calcification Degenerative changes: Degenerative changes, with large bridging anterior osteophytes, without severe neural foraminal or central canal narrowing. FACE: Soft Tissues: No significant superficial soft tissue swelling. Facial bones: No acute fracture. No lytic or blastic process. Eyes: The globes are intact. Bilateral lens replacements. The soft tissue planes of the orbits are m aintained. Paranasal Sinuses: The visualized aerated spaces are clear. Foreign Bodies: No radiopaque foreign bodies. Other Findings: None. IMPRESSION: No acute fracture or traumatic malalignment in the cervical spine. No acute facial bone fracture. Reviewed, dictated and finalized at location K. AND BOLT ASSEMBLER IMPRESSION: No acute fracture or traumatic malalignment in the cervical spine. No acute fac ial bone fracture.
--- NOTE | ~2022-07-29 | CT_ITS ---
EXAMINATION: CT brain wo con DATE: 07/29/2022 21:47 INDICATION: head injury . TECHNIQUE: Computed tomography (CT) of the head was performed without intravenous contrast. The mA wa s adjusted according to patient size. Iterative reconstruction technique was employed. The dose-lengt h product was 908.00 mGy-cm. COMPARISON: 08/13/2021. FINDINGS: Motion artifact which required additional imaging. No acute intracranial hemorrhage or extra-axial fluid collection. No hydrocephalus, mass, or herniation. No acute ischemic infarct. Unremarkable dural venous sinus attenuation. No acute osseous abnormality. The aerated spaces are clear. Mild atrophy and moderate chronic white matter change. Atherosclerotic intracranial calcification. Ol d left basal ganglia lacunar infarct. Bilateral lens replacements. IMPRESSION: Motion limited examination. No acute intracranial process. Reviewed, dictated and finalized at location K. ETRICS TECH
--- NOTE | ~2022-07-29 | CT_ITS ---
EXAMINATION: CT abdomen pelvis w con DATE: 07/29/2022 21:55 INDICATION: abdominal pain TECHNIQUE: Computed tomography (CT) of the abdomen and pelvis was performed with 100 mL Omnipaque-350 intravenous contrast. Automated exposure control and iterative reconstruction technique were employe d. The dose-length product was 710.34 mGy-cm. COMPARISON: None. FINDINGS: Lower thorax: Prior CABG. Coronary artery, aortic valve, and mitral calcification. Lung bases are sirena ar. Liver: Normal. Biliary/Gallbladder: Gallbladder is absent. No bile duct dilation. Pancreas: Mild atrophy Spleen: Normal. Adrenals:No mass. Kidneys: No suspicious mass, stone, or hydronephrosis. Simple exophytic right midpole cyst. GI tract: No small or large bowel dilation. Normal appendix. Short segment wall thickening/edema and pericolonic inflammatory change in the left lower quadrant at the proximal sigmoid. Additional areas of mild colonic wall edema present in the transverse colon and descending colon. Mesentery/Peritoneum: No ascites, mass, or free air. Retroperitoneum: No mass. Atherosclerotic abdominal aortic and/or arterial calcifications. Pelvis: Surgically absent uterus. Distended urinary bladder without wall thickening.. Soft Tissues: Soft tissues and body wall unremarkable. Bones: No acute osseous finding. Vertebroplasty cement at L1. IMPRESSION: Transverse, descending, and sigmoid colon edema may reflect colitis. More focal pericolonic inflammat ory change in the proximal sigmoid colon may represent an early focus of diverticulitis in the [facility] clinical context. Reviewed, dictated and finalized at location K. WORKS INSPECTOR IMPRESSION: Transverse, descending, and sigmoid colon edema may reflect colitis. More focal pericolonic inflammatory change in the proximal sigmoid colon may represent an early focus of diverticulitis in the appropriate clinical context.
--- NOTE | ~2022-07-29 | CT_ITS ---
EXAMINATION: CT soft tissue neck w con DATE: 07/31/2022 21:22 INDICATION: Neck swelling after fall TECHNIQUE: Computed tomography (CT) of the neck was performed with 75 mL Omnipaque-350 intravenous co ntrast. The dose-length product was 566.59 mGy-cm. Automated exposure control and iterative reconstruction technique were employed. COMPARISON: CT cervical spine dated 07/29/2022 FINDINGS: Thyroid gland is heterogeneous with multiple small subcentimeter nodules, likely benign. Co nsider correlation with thyroid ultrasound. There is a 1.6 cm hypovascular mass in the left thyroid l obe. There is moderate atherosclerotic change of the vertebral arteries bilaterally just proximal to the junction of the basilar artery. There is atherosclerosis of the right carotid artery. Small bilat eral cervical lymph nodes, likely reactive. There is spinal fusion at C5-6. There are patchy groundgl ass opacities in the upper lobes, nonspecific. There is advanced cervical spondylosis. No significant abnormality of the mucosal or parapharyngeal spaces. IMPRESSION: 1. Enlarged heterogeneous thyroid gland with multiple hypovascular masses, largest in the left lobe m easuring 1.6 cm. Consider follow-up correlation with ultrasound. 2: Moderate atherosclerosis of the carotid and vertebral arteries. 3: Small bilateral cervical lymph nodes, likely reactive. Reviewed, dictated and finalized at location A. E MANAGEMENT SPECIALIST IMPRESSION: 1. Enlarged heterogeneous thyroid gland with multiple hypovascular masses, larg est in the left lobe measuring 1.6 cm. Consider follow-up correlation with ultr asound. 2: Moderate atherosclerosis of the carotid and vertebral arteries. 3: Small bilateral cervical lymph nodes, likely reactive.
--- NOTE | ~2022-07-29 | XR_ITS ---
EXAM: XR shoulder RT min 2V DATE: 07/29/2022 20:20 HISTORY: R.SHOULDER PAIN, FELL OFF OF TOILET. . COMPARISON: None available. FINDINGS: Decreased mineralization. Multiple fractured sternotomy wires No fracture or dislocation. No lytic or blastic lesion. Joint spaces are maintained. No erosion or periosteal change. Soft tissue calcification versus artifact overlying the proximal upper arm. IMPRESSION: No acute osseous finding in the right shoulder. Reviewed, dictated and finalized at location K. INVESTIGATOR
--- NOTE | ~2022-07-29 | US_ITS ---
EXAMINATION: US carotid duplex BI DATE: 08/01/2022 12:36 INDICATION: Syncope TECHNIQUE: Grayscale, color Doppler, and pulsed Doppler images of the cervical carotid arteries were obtained. The degree of vessel stenosis is placed in one of the following categories: normal, <50%, 5 0-69%, >=70% but less than near-occlusion, near-occlusion, or total occlusion. Note that percent sten osis relative to normal distal artery lumen diameter is indirectly measured from velocity measurement s as described by Rom, et al. Radiology 2003; 229:340-346. Notes: Normal: Peak systolic velocity <125 centimeters/sec and no plaque <50%. Peak systolic velocity <125 ( EDV <40; ICA/CCA PSV ratio <2.0; used these factors only a tandem lesions or low cardiac output or co ntralateral disease) 50-69 %: PSV 125-230 (EDV 40-100; ratio 2-4) >= 70% but less than near occlusion: PSV greater than 230 (EDV > 100; ratio> 4.0) Near Occlusion: PSV that is variable; markedly narrowed lumen Occlusion: Absent flow on color/spectral Doppler and no lumen on manning scale. COMPARISON: Ultrasound dated 08/14/2021. FINDINGS: RIGHT: The right common carotid artery (CCA) peak systolic velocity (PSV) is 91 cm/s. The right internal car otid artery (ICA) PSV is 75 cm/s. The right ICA end-diastolic velocity (EDV) is 15 cm/s. The right IC A/CCA PSV ratio is 0.8. The external carotid artery (ECA) PSV is 137 cm/s. There is antegrade flow in the right vertebral artery. LEFT: The left CCA PSV is 147 cm/s. The left ICA PSV is 67 cm/s. The left ICA EDV is 18 cm/s. The left ICA/ CCA PSV ratio is 0.5. The ECA PSV is 147 cm/s. There is antegrade flow in the left vertebral artery. IMPRESSION: 1. Less than 50% stenosis in the right internal carotid artery by sonographic criteria. 2. Less than 50% stenosis in the left internal carotid artery by sonographic criteria. Reviewed, dictated and finalized at location A. AGE WINDER IMPRESSION: 1. Less than 50% stenosis in the right internal carotid artery by sonographic c [place]. 2. Less than 50% stenosis in the left internal carotid artery by sonographic cr dai.
[2022-07-29 15:48] VITALS: BP 172/85; PULSE 56; RESP 17; TEMP 36.7; O2SAT 100
--- NOTE | 2022-07-29 15:48 | ECG_ITS ---
Measurements Intervals [place] Rate: 58 P: 59 HI: 203 QRS: 51 QRSD: 87 T: 69 QT: 460 QTc: 455 Interpretive Statements SINUS BRADYCARDIA WITH MARKED SINUS ARRHYTHMIA BORDERLINE ECG COMPARED TO ECG 08/13/2021 09:15:53 SINUS BRADYCARDIA NOW PRESENT Electronically Signed On 07-29-2022 20:42:23 CNC MILL AND LATHE OPERATOR by Naldo Tamayo D.O.
[2022-07-29 17:09] LABS: Basophils Percent Auto 0.3 % (0.2-1.2); Eosinophils Absolute Auto 0.1 K/mm3 (0-0.3); Eosinophils Percent Auto 0.9 % (0-4.4); Hematocrit 36.7 % (37.0-47.0); Hemoglobin 10.9 g/dL (12.0-15.0); Immature Granulocyte Absolute 0.04 K/mm3 (0.00-0.031); Immature Granulocyte Percent A 0.4 % (0-0.5); Lymphocytes Percent Auto 17.2 % (18.3-44.2); Mean Corpuscular HGB Conc 29.7 g/dl (32-36); Mean Corpuscular Hemoglobin 23.3 pg (26-34); Mean Corpuscular Volume 78.6 fl (80-100); Monocytes Absolute Auto 0.5 K/mm3 (0.1-0.6); Monocytes Percent Auto 4.6 % (2.6-8.5); Neutrophils Percent Auto 76.6 % (45.5-73.1); Platelet Count Result 366 k/mm3 (150-375); Red Blood Count 4.67 M/mm3 (4.2-5.4); Red Cell Distribution Width 17.6 % (11.5-14.5); White Blood Count 10.5 K/mm3 (4.5-10.0)
[2022-07-29 17:20] LABS: Alanine Aminotransferase 22 U/L (6-35); Albumin Level 4.3 g/dL (3.5-5.1); Alkaline Phosphatase 113 U/L (38-126); Anion Gap 9 mmol/L (8-16); Aspartate Amino Transferase 36 U/L (14-36); Bilirubin,Total 0.4 mg/dL (0.2-1.3); Blood Urea Nitrogen 21 mg/dL (7-17); Calcium 8.9 mg/dL (8.4-10.2); Carbon Dioxide 31 mmol/L (22-30); Chloride 96 mmol/L (98-107); Estimated CRCL calculation 34 ml/min; Estimated Glomerular Filt Rate 44; Glucose 215 mg/dL (65-110); Potassium 3.2 mmol/L (3.4-5.0); Sodium 136 mmol/L (137-145)
[2022-07-29 17:40] LABS: Hypochromasia 1+ (NORMAL); Platelet Estimate Adequate (Adequate)
[2022-07-29 17:41] LABS: Anisocytosis 1+ (NORMAL); Ovalocytes 1+ (NORMAL); Schistocytes None Seen (NORMAL); Target Cells 1+ (NORMAL)
[2022-07-29 19:26] VITALS: BP 144/51; PULSE 66; RESP 16; O2SAT 100
[2022-07-29 19:27] VITALS: BP 156/50; PULSE 64
[2022-07-29 19:28] VITALS: BP 139/64; PULSE 59
[2022-07-29 19:32] VITALS: BP 129/43; PULSE 64
--- NOTE | 2022-07-29 19:38 | ED.GENADULT ---
HPI - General Adult General Chief complaint: Syncope Stated complaint: syncopal with bm and after, dizzy, abd pain Time Seen by Provider: 07/29/22 19:30 History of Present Illness HPI narrative: 76-year-old female with history of colitis, frequent falls and history of syncope presenting to the emergency department after having a syncopal episode. Patient states that today she began developing some lower abdominal pain which she suspected was her colitis, patient was having a bowel movement and when he stood up and had a syncopal episode. Patient states that she did fall to the ground is unsure how long she was unconscious. Patient states she did strike the right side of her face and did injure her right shoulder. Patient reports she is on blood thinners. Patient did call EMS for these symptoms and EMS reported that she had a second syncopal episode. Besides the injuries from the fall patient is also complaining of some lower abdominal pain Related Data Home Medications Medication Instructions Recorded Confirmed atorvastatin 20 mg tablet 20 mg PO DAILY 09/26/19 07/30/22 dapagliflozin 10 mg tablet 10 mg PO DAILY 09/18/20 07/30/22 (Farxiga) ezetimibe 10 mg tablet 10 mg PO DAILY 09/18/20 07/30/22 icosapent ethyl 1 gram capsule 2 g PO BID 09/18/20 07/30/22 (Vascepa) semaglutide 0.25 mg or 0.5 mg (2 0.25 - 0.5 mg subcut WEEKLY 09/18/20 07/30/22 mg/1.5 mL) subcutaneous pen injector (Ozempic) pantoprazole 40 mg tablet,delayed 40 mg PO DAILY 10/03/20 07/30/22 release dicyclomine 20 mg tablet 20 mg PO QID 04/23/21 07/30/22 furosemide 40 mg tablet 40 mg PO QAM 04/23/21 07/30/22 ticagrelor 90 mg tablet (Brilinta) 40 mg PO BID 05/03/21 07/30/22 buspirone 5 mg tablet 2.5 mg PO BID 04/02/22 07/30/22 methimazole 5 mg tablet 10 mg PO DAILY 04/02/22 07/30/22 metoprolol succinate 25 mg 25 mg PO DAILY 04/02/22 07/30/22 tablet,extended release 24 hr potassium chloride 20 mEq 20 meq PO DAILY 04/02/22 07/30/22 tablet,extended release(part/cryst) (Klor-Con M) sertraline 100 mg tablet 100 mg PO HS 04/02/22 07/30/22 rivaroxaban 2.5 mg tablet (Xarelto) 2.5 mg PO BID 07/30/22 07/30/22 Allergies Allergy/AdvReac Type Severity Reaction Status Date / Time ranolazine Allergy Intermediate Unknown Verified 04/02/22 11:06 gabapentin Allergy Mild Confusion Verified 04/02/22 11:06 cyclobenzaprine Allergy Unknown Unknown Verified 04/02/22 11:06 fentanyl Allergy Unknown Unknown Verified 04/02/22 11:06 ciprofloxacin [From Cipro] Allergy Unknown Verified 04/02/22 11:06 doxycycline Allergy Unknown Verified 04/02/22 11:06 Penicillins Allergy Anaphylaxis Verified 07/29/22 23:05 Review of Systems Review of Systems: CONSTITUTIONAL: Denies fever, chills, or sweats. EYES: Denies visual changes, redness, or discharge. ENT: Denies rhinorrhea, congestion, sore throat, or otalgia. CARDIOVASCULAR: Denies chest pain, palpitations, or edema. RESPIRATORY: Denies cough or dyspnea. GASTROINTESTINAL: Denies abdominal pain, nausea, vomiting, or diarrhea. GENITOURINARY: Denies dysuria or hematuria. SKIN: Denies rash or itching. MUSCULOSKELETAL: See HPI NEUROLOGIC: See HPI PSYCHIATRIC: Denies anxiety or depression. [facility] Past Medical History Medical History Anemia Anxiety Back pain CAD (coronary artery disease) Cataracts, bilateral CHF (congestive heart failure) Colitis Crohn's disease Depression Depression with anxiety Diabetes mellitus DVT (deep venous thrombosis) Fibromyalgia Gastrointestinal ulcer GERD (gastroesophageal reflux disease) History of angina HLD (hyperlipidemia) HTN (hypertension) Hypothyroidism IBS (irritable bowel syndrome) Kidney stones TIA (transient ischemic attack) UTI (urinary tract infection) Surgical History Surgical History H/O cataract extraction H/O heart artery stent History of bladder surge
[2022-07-29 21:38] VITALS: BP 178/63; PULSE 56; RESP 16; O2SAT 98
--- NOTE | 2022-07-29 23:30 | PM.IMHP ---
H&P: HPI History of Present Illness Date/Time: 07/29/22 23:30 Chief Complaint: Syncope Narrative: This is a 76-year-old female with past medical history significant for coronary artery disease, Crohn's, fibromyalgia, type 2 diabetes mellitus, GERD, chronic back pain. Patient presents to the emergency room a after she had a syncopal episode while sitting on her toilet woke up laying on the floor patient denies any pain no vision changes, no focal sensorimotor deficit, she has been in her usual state of health up until this moment. Preliminary workup was significant for: CT of the head was reported as: FINDINGS: Motion artifact which required additional imaging. No acute intracranial hemorrhage or extra-axial fluid collection. No hydrocephalus, mass, or herniation. No acute ischemic infarct. Unremarkable dural venous sinus attenuation. No acute osseous abnormality. The? aerated spaces are clear. Mild atrophy and moderate chronic white matter change. Atherosclerotic intracranial calcification. Old left basal ganglia lacunar infarct. Bilateral lens replacements. IMPRESSION:? Motion limited examination. No acute intracranial process. CT of cervical spine was reported as: FINDINGS: CERVICAL: Vertebral Body Alignment: Intact. Craniocervical and atlantoaxial alignment: Moderate degenerative change. Alignment intact. Osseous structures/fracture: No evidence of a lytic or blastic process in the visualized spine.? No evidence of acute fracture. C5-6 fusion. Cervical soft tissues: The paraspinal soft tissues planes are maintained. Heterogeneous thyroid gland. Bilateral carotid bifurcation and aortic arch calcification Degenerative changes: Degenerative changes, with large bridging anterior osteophytes, without severe neural foraminal or central canal narrowing. FACE: Soft Tissues:? No significant superficial soft tissue swelling. Facial bones:? No acute fracture. No lytic or blastic process. Eyes:? The globes are intact. Bilateral lens replacements. The soft tissue planes of the orbits are maintained. Paranasal Sinuses:? The visualized aerated spaces are clear. Foreign Bodies:? No radiopaque foreign bodies. Other Findings: None. IMPRESSION:? No acute fracture or traumatic malalignment in the cervical spine. No acute facial bone fracture.? CT of abdomen and pelvis was reported as: FINDINGS: Lower thorax: Prior CABG. Coronary artery, aortic valve, and mitral calcification. Lung bases are clear. Liver: Normal.? Biliary/Gallbladder: Gallbladder is absent. No bile duct dilation. Pancreas: Mild atrophy Spleen: Normal. Adrenals:No mass. Kidneys: No suspicious mass, stone, or hydronephrosis. Simple exophytic right midpole cyst. GI tract: No small or large bowel dilation. Normal appendix. Short segment wall thickening/edema and pericolonic inflammatory change in the left lower quadrant at the proximal sigmoid. Additional areas of mild colonic wall edema present in the transverse colon and descending colon. Mesentery/Peritoneum: No ascites, mass, or free air. Retroperitoneum: No mass. Atherosclerotic abdominal aortic and/or arterial calcifications. Pelvis: Surgically absent uterus. Distended urinary bladder without wall thickening.. Soft Tissues: Soft tissues and body wall unremarkable. Bones:? No acute osseous finding. Vertebroplasty cement at L1. IMPRESSION: Transverse, descending, and sigmoid colon edema may reflect colitis. More focal pericolonic inflammatory change in the proximal sigmoid colon may represent an early focus of diverticulitis in the appropriate clinical context. Review of Systems Review of Systems: Syncopal episode, diarrhea. Constitutional: Constitutional: Denies chills, Denies fever(s), Denies malaise and Denies weakness Eyes: Eyes: Denies change in vision ENT: Denies dysphagia, Denies vertigo, Denies dizziness, Denies facial pain and Denies odynophagia Cardiovascular: Cardiovascular: Denies chest pain, Reports
[2022-07-30] VITALS (91 sets, daily range): BP systolic 106–149; BP diastolic 34–80; PULSE 61–855; RESP 11–24; TEMP 36.4–36.9; O2SAT 94–100; BMI 31.4
[2022-07-30] MEDS: metroNIDAZOLE 500 MG/ISO 100ML 500 MG/100 ML BAG 100 MG IVPB ×4 (00:01→21:49)
[2022-07-30 01:24] LABS: Influenza A QL RT-PCR Negative (Negative); Influenza B QL RT-PCR Negative (Negative); SARS-CoV-2 RNA PCR Negative
[2022-07-30] MEDS: MORPHINE SULFATE (*CRX) 2 MG/ML INJ IV PUSH ×2 (02:13→11:17)
--- NOTE | 2022-07-30 17:25 | PM.IMPN ---
Progress Note: A&P Assessment and Plan (1) Syncope: Code(s): R55 - Syncope and collapse Status: Acute Assessment and Plan: Likely to be vasovagal Placed in observation (2) Diverticulitis: Code(s): K57.92 - Diverticulitis of intestine, part unspecified, without perforation or abscess without bleeding Status: Acute Assessment and Plan: Patient started on Flagyl Multiple allergies f/w c diff Hypokalemia Replace the potassium chloride Follow-up BMP (3) Moderate aortic stenosis: Code(s): I35.0 - Nonrheumatic aortic (valve) stenosis Status: Acute Assessment and Plan: Continue to monitor (4) Type 2 diabetes mellitus with hyperglycemia, with long-term current use of insulin: Code(s): E11.65 - Type 2 diabetes mellitus with hyperglycemia; Z79.4 - marine oil terminal superintendent (current) use of insulin Status: Acute Assessment and Plan: Patient is on metformin and Farxiga at at home Insulin sliding scale as needed (5) CAD (coronary artery disease): Code(s): I25.10 - Atherosclerotic heart disease of [place] coronary artery without angina pectoris Status: Acute Assessment and Plan: Chest pain-free Continue home meds (6) GERD (gastroesophageal reflux disease): Code(s): K21.9 - Gastro-esophageal reflux disease without esophagitis Status: Acute Assessment and Plan: PPI as needed Subjective Date/time seen: 07/30/22 17:25 Saw and examined the patient Patient does not have a new issue and over the night. Patient denies headache, dizziness, chest pain, palpitation, shortness of breath Patient still has a loose stool. Denies melena, red blood per rectum.. Exam Narrative: Patient is laying in a stretcher Const: General: comfortable, no acute distress, well developed, alert, awake and average body habitus Nutritional Appearance: average body habitus Orientation/consciousness: patient oriented x3 HENMT: Head: normal to inspection, normocephalic and atraumatic Ears: hearing grossly normal bilaterally Face/Nose/Sinus: normal facial exam Face and sinus: normal facial exam Eyes: General: appearance normal, both eyes and all related structures Pupils: Equal, round and reactive pupils present EOM: EOMs intact bilaterally Neck: Neck: full ROM, no lymphadenopathy and no JVD Thyroid: thyroid normal Lymphatic: no lymphadenopathy noted Resp: Effort & Inspection: normal respiratory effort and able to speak in complete sentences Auscultation: clear to auscultation bilaterally Cardio: Jugular venous distension: no JVD Rate: regular rate Rhythm: regular rhythm Heart sounds: S1 normal heart sound present and S2 normal heart sound present GI: Inspection: Pannus present and obesity : General: Yes deferred Skin: Rashes: no rashes Wounds: no wounds Neuro: General: patient oriented x3, CN's II-XI intact bilaterally and Unable to assess gait Cranial nerves: Yes CN's II-XII intact bilaterally and Yes Equal, round and reactive pupils present Cognition (Neuro): normal cognition Speech: normal speech Gait exam (Neuro): Normal gait present and Unable to assess gait Motor exam (neuro): 5/5 motor strength present throughout Sensory Exam: No Sensory deficit (Neuro) Extrem: General: normal to inspection, full ROM, no joint enlargement and no pedal edema Objective Data Vital Signs Vital Signs: Vital Signs - 24 hr 07/29/22 19:26 07/29/22 19:27 07/29/22 19:28 Pulse Rate 66 64 59 L Respiratory Rate 16 Blood Pressure 144/51 H 156/50 H 139/64 Pulse Oximetry 100 07/29/22 19:32 07/29/22 21:38 07/30/22 00:09 Pulse Rate 64 56 L 70 Respiratory Rate 16 18 Blood Pressure 129/43 L 178/63 H 113/75 Pulse Oximetry 98 100 07/30/22 00:11 07/30/22 00:15 07/30/22 00:16 Pulse Rate 72 67 69 Respiratory Rate 20 19 12 Blood Pressure Pulse Oximetry 100 100 99 07/30/22 00:30 07/30/22 00:32 07/30/22 00:45 Pulse Rate 69 64 65 Res
[2022-07-30] MEDS: POTASSIUM CHLORIDE 20 MEQ PACKET (FOR LIQUID) 40 MEQ PO (18:15)
--- NOTE | 2022-07-30 18:51 | ADMGEN ---
This patient, Osvaldo Rawls, was admitted to [address] [place] [address] Room 306-02 at 1730. Patient/family oriented to hospital policies and general routines including ID bracelet, bed and alarms, visiting hours, pain management, procedures, bathroom and other care routines, personal items, smoking policy, room service/diet, and visiting hours. Information on how to activate the Rapid Response Team has been discussed. Patient/Family are encouraged to report perceived risks to care and to ask questions if they do not understand what they are told or what they should do.
[2022-07-30 20:31] LABS: Glucose Point of Care 101 mg/dl (65-105)
[2022-07-31] VITALS (8 sets, daily range): BP systolic 111–151; BP diastolic 48–54; PULSE 60–97; RESP 14–17; TEMP 36.2–36.8; O2SAT 100; BMI 31.4
[2022-07-31] MEDS: ALPRAZolam (*CRX) 0.5 MG TABLET PO ×2 (02:35→21:50)
--- NOTE | 2022-07-31 04:30 | ECG_ITS ---
Measurements Intervals [place] Rate: 77 P: 61 [place]: 180 QRS: 56 QRSD: 77 T: 52 QT: 380 QTc: 433 Interpretive Statements SINUS RHYTHM WITH SINUS ARRHYTHMIA CANNOT RULE OUT SEPTAL INFARCT, AGE INDETERMINATE BASELINE ARTIFACT- I, II, III, AVR, AVL, AVF ABNORMAL ECG COMPARED TO ECG 07/29/2022 16:51:29 SINUS RHYTHM NOW PRESENT Electronically Signed On 07-31-2022 8:07:37 SHIPPING RECEIVING CLERK by Naldo Tamayo D.O.
[2022-07-31] MEDS: MORPHINE SULFATE (*CRX) 2 MG/ML INJ IV PUSH (04:32)
--- NOTE | 2022-07-31 04:44 | PC.NURSE ---
At approximately 0410 patient started to complain of new onset of chest pain, charge nurse and hospitalist were notified and stat EKG was ordered. Shortly after that patient complained that pain was radiating to back and jaw as well. Morphine was then administered and EKG was shown with sinus rhythm with sinus arrhythmia. Shortly after patient expressed how much of the pain was relieved and at 0448 patient is observed to be sleeping in bed. Hospitalist Dr. Mcgill notified.
[2022-07-31] MEDS: metroNIDAZOLE 500 MG/ISO 100ML 500 MG/100 ML BAG 100 MG IVPB ×3 (05:16→21:51)
[2022-07-31 07:09] LABS: Hematocrit 31.8 % (37.0-47.0); Hemoglobin 9.9 g/dL (12.0-15.0); Mean Corpuscular HGB Conc 31.1 g/dl (32-36); Mean Corpuscular Hemoglobin 23.2 pg (26-34); Mean Corpuscular Volume 74.5 fl (80-100); Mean Platelet Volume 8.9 fl (7.4-10.4); Platelet Count Result 331 k/mm3 (150-375); Red Blood Count 4.27 M/mm3 (4.2-5.4); Red Cell Distribution Width 17.1 % (11.5-14.5); White Blood Count 8.9 K/mm3 (4.5-10.0)
[2022-07-31 07:31] LABS: Anion Gap 9 mmol/L (8-16); Blood Urea Nitrogen 15 mg/dL (7-17); Calcium 8.9 mg/dL (8.4-10.2); Carbon Dioxide 28 mmol/L (22-30); Chloride 101 mmol/L (98-107); Estimated CRCL calculation 45 ml/min; Estimated Glomerular Filt Rate > 60; Glucose 116 mg/dL (65-110); Magnesium 2.2 mg/dL (1.6-2.3); Potassium 3.2 mmol/L (3.4-5.0); Sodium 138 mmol/L (137-145)
[2022-07-31 08:12] LABS: Glucose Point of Care 118 mg/dl (65-105)
[2022-07-31] MEDS: DICYCLOMINE HCL 10 MG CAPSULE 20 MG PO ×4 (08:59→21:49)
[2022-07-31] MEDS: busPIRone HCL 2.5 MG TABLET PO ×2 (09:00→21:50)
[2022-07-31] MEDS: OMEGA 3 POLYUNSAT FATTY ACIDS 1 GM CAP 2 GM PO ×2 (09:00→16:26)
[2022-07-31] MEDS: METOPROLOL SUCCINATE EXT REL 25 MG TABCR PO (09:01)
[2022-07-31] MEDS: methiMAzole 10 MG TAB PO (09:01)
[2022-07-31] MEDS: EZETIMIBE 10 MG TABLET PO (09:01)
[2022-07-31] MEDS: ATORVASTATIN 20 MG TABLET PO (09:01)
[2022-07-31] MEDS: RIVAROXABAN 2.5 MG TABLET PO ×2 (09:03→16:27)
[2022-07-31] MEDS: PANTOPRAZOLE 40 MG TABLET PO (09:04)
[2022-07-31] MEDS: EMPAGLIFLOZIN 25 MG TABLET BY MOUTH (09:05)
[2022-07-31] MEDS: TICAGRELOR 90 MG TABLET PO ×2 (09:05→16:27)
[2022-07-31] MEDS: POTASSIUM CHLORIDE 20 MEQ PACKET (FOR LIQUID) 40 MEQ PO (09:07)
[2022-07-31 12:06] LABS: Glucose Point of Care 231 mg/dl (65-105)
[2022-07-31 12:08] LABS: Toxigenic C. Diff NEGATIVE (NEGATIVE)
[2022-07-31] MEDS: INSULIN ASPART (*BKC) 100 UNITS/ML SUB-Q (12:11)
[2022-07-31 16:52] LABS: Glucose Point of Care 91 mg/dl (65-105)
--- NOTE | 2022-07-31 17:04 | PM.IMPN ---
Progress Note: A&P Assessment and Plan (1) Syncope: Code(s): R55 - Syncope and collapse Status: Acute (2) Diverticulitis: Code(s): K57.92 - Diverticulitis of intestine, part unspecified, without perforation or abscess without bleeding Status: Acute (3) Microcytic anemia: Code(s): D50.9 - Iron deficiency anemia, unspecified Status: Acute (4) Type 2 diabetes mellitus with hyperglycemia, with long-term current use of insulin: Code(s): E11.65 - Type 2 diabetes mellitus with hyperglycemia; Z79.4 - quality assurance monitor chassis (current) use of insulin Status: Acute (5) Hypothyroidism: Code(s): E03.9 - Hypothyroidism, unspecified Status: Chronic (6) CAD (coronary artery disease): Code(s): I25.10 - Atherosclerotic heart disease of [place] coronary artery without angina pectoris Status: Acute (7) GERD (gastroesophageal reflux disease): Code(s): K21.9 - Gastro-esophageal reflux disease without esophagitis Status: Acute (8) CHF (congestive heart failure): Qualifiers: Heart failure chronicity: chronic Heart failure type: diastolic Qualified Code(s): I50.32 - Chronic diastolic (congestive) heart failure Code(s): I50.9 - Heart failure, unspecified Status: Acute (9) Diarrhea: Code(s): R19.7 - Diarrhea, unspecified Status: Acute Plan ?Code(s): R55 - Syncope and collapse ?Status:?Acute ?Assessment and Plan: Likely to be vasovagal need to rule out a cardiogenic syncope, follow-up echocardiogram, carotid Doppler patient has neck pain, and neck is swollen resulting from fall, follow the cervical spine and CT scan and neck soft tissue CT (2) Diverticulitis: ?Code(s): K57.92 - Diverticulitis of intestine, part unspecified, without perforation or abscess without bleeding ?Status:?Acute ?Assessment and Plan: Patient started on Flagyl Multiple allergies f/w c diff Hypokalemia Replace the potassium chloride Follow-up BMP (3) Moderate aortic stenosis: ?Code(s): I35.0 - Nonrheumatic aortic (valve) stenosis ?Status:?Acute ?Assessment and Plan: Continue to monitor (4) Type 2 diabetes mellitus with hyperglycemia, with long-term current use of insulin: ?Code(s): E11.65 - Type 2 diabetes mellitus with hyperglycemia; Z79.4 - quality assurance monitor chassis (current) use of insulin ?Status:?Acute ?Assessment and Plan: Patient is on metformin and Farxiga at at home Insulin sliding scale as needed (5) CAD (coronary artery disease): ?Code(s): I25.10 - Atherosclerotic heart disease of [place] coronary artery without angina pectoris ?Status:?Acute ?Assessment and Plan: Chest pain-free Continue home meds (6) GERD (gastroesophageal reflux disease): ?Code(s): K21.9 - Gastro-esophageal reflux disease without esophagitis ?Status:?Acute ?Assessment and Plan: PPI as needed Subjective Date/time seen: 07/31/22 17:04 saw on exam patient today Patient has neck pain and Swelling. patient states is resulting from the fall. patient denies focal weakness, achiness arm, numbness arm or chest pain, shortness of breath. diarrhea stops Objective Data Vital Signs Vital Signs: Vital Signs - 24 hr 07/30/22 17:07 07/30/22 18:07 07/30/22 22:00 Temperature 97.5 F L 98.4 F Pulse Rate 82 68 68 Respiratory Rate 20 18 14 Blood Pressure 149/51 H 138/43 L Pulse Oximetry 99 100 100 Oxygen Delivery 07/30/22 20:20 07/31/22 05:46 07/30/22 20:00 Temperature 98.2 F Pulse Rate 67 855 H Respiratory Rate 14 Blood Pressure 117/48 L Pulse Oximetry 100 Oxygen Delivery Room Air 07/31/22 00:00 07/31/22 04:00 07/31/22 09:01 Temperature Pulse Rate 75 70 72 Respiratory Rate Blood Pressure Pulse Oximetry Oxygen Delivery 07/31/22 09:00 07/31/22 08:00 07/31/22 12:00 Temperature Pulse Rate 97 70 Respiratory Rate Blood Pressure Pulse
[2022-07-31] MEDS: POTASSIUM CHLORIDE 20 MEQ TABLET 40 MEQ PO (17:48)
[2022-07-31] MEDS: SERTRALINE HCL 50 MG TABLET 100 MG PO (21:50)
--- NOTE | 2022-08-01 | ECHO_ITS ---
Patient Info Name: Osvaldo Rawls Age: 76 years : 1945 Gender: Female Ht: 62 in Wt: 171 lbs BSA: 1.87 m2 HR: 68 bpm BP: 151 / 54 mmHg Technical Quality: Good Exam Date: 08/01/2022 12:36 PM Exam Location: [facility] Patient Status: Inpatient Admit Date: 07/29/2022 Staff Ordering Physician: Mitchell Singh MD Lasting Floorworker: Emma Purvis RDCS Attending Provider: Chilo Walls MD Exam Type: CA echo doppler color flow Study Info Indications R55 - Syncope and collapse Complete two-dimensional, color flow and Doppler transthoracic echocardiogram is performed. Summary 1. Complete two-dimensional, color flow and Doppler transthoracic echocardiogram is performed. 2. Normal LV size, moderate LVH, hyperdynamic LV systolic function, ejection fraction more than 70%. Grade 1 diastolic dysfunction, elevated left atrial pressures. Mild RV enlargement, normal RV systolic function. Mild left atrial enlargement. Mitral valve leaflets appear thickened, mild mitral annular calcification. Trivial MR. Aortic valve appears calcified with restricted leaflet mobility. Moderate aortic stenosis, approaching severe with relatively lower mean gradients. Maximum velocity 2.9 m/sec, mean gradient 19 mmHg. Mild tricuspid regurgitation, RVSP 28 mmHg. Sinus rhythm. Continued clinical and echocardiographic surveillance of aortic stenosis is recommended. Left Ventricle Left ventricular chamber dimension is normal. Left ventricular systolic function is hyperdynamic, estimated at >70%. There is moderately increased left ventricular wall thickness. The left ventricular diastolic function is grade I diastolic dysfunction. E/e' 17.4 is abnormal. Right Ventricle Right ventricular chamber dimension is mildly enlarged. Right ventricular systolic function is normal. Left Atria Left atrial chamber dimension is mildly enlarged. Right Atria Right atrial chamber dimension is normal. Aortic Valve There is mild to moderate aortic valve regurgitation. There is moderate aortic valve calcification. Pulmonic Valve The pulmonic valve is not well visualized. There is trace pulmonic regurgitation. Mitral Valve The mitral valve has thickened leaflets. There is mild mitral valve calcification. Tricuspid Valve The tricuspid valve leaflets are normal. There is mild tricuspid valve regurgitation. Left Ventricular Outflow Tract Name Value Normal LVOT 2D LVOT Diameter 2.1 cm LVOT Doppler LVOT Peak Gradient 5 mmHg LVOT Mean Gradient 2 mmHg LVOT VTI 29 cm LVOT VTI/AV VTI Ratio 0.4 LVOT Stroke Volume 100 ml LVOT CO 4.2 l/min LVOT CI 2.2 l/min/m2 Pulmonic Valve Name Value Normal PV Doppler
[2022-08-01 02:02] LABS: Glucose Point of Care 141 mg/dl (65-105)
[2022-08-01 06:00] VITALS: BP 140/38; PULSE 63; RESP 18; TEMP 36.2; O2SAT 99
[2022-08-01] MEDS: metroNIDAZOLE 500 MG/ISO 100ML 500 MG/100 ML BAG 100 MG IVPB ×3 (07:27→21:26)
[2022-08-01 07:30] LABS: Hematocrit 33.1 % (37.0-47.0); Hemoglobin 9.3 g/dL (12.0-15.0); Mean Corpuscular HGB Conc 28.1 g/dl (32-36); Mean Corpuscular Hemoglobin 23.5 pg (26-34); Mean Corpuscular Volume 83.6 fl (80-100); Mean Platelet Volume 9.1 fl (7.4-10.4); Platelet Count Result 311 k/mm3 (150-375); Red Blood Count 3.96 M/mm3 (4.2-5.4); Red Cell Distribution Width 17.9 % (11.5-14.5); White Blood Count 7.1 K/mm3 (4.5-10.0)
[2022-08-01 07:46] LABS: Anion Gap 6 mmol/L (8-16); Blood Urea Nitrogen 13 mg/dL (7-17); Calcium 8.6 mg/dL (8.4-10.2); Carbon Dioxide 25 mmol/L (22-30); Chloride 107 mmol/L (98-107); Estimated CRCL calculation 41 ml/min; Estimated Glomerular Filt Rate 54; Glucose 105 mg/dL (65-110); Potassium 4.1 mmol/L (3.4-5.0); Sodium 138 mmol/L (137-145)
--- NOTE | 2022-08-01 08:04 | PM.IMPN ---
Progress Note: A&P Assessment and Plan (1) Syncope: Code(s): R55 - Syncope and collapse Status: Acute (2) Diverticulitis: Code(s): K57.92 - Diverticulitis of intestine, part unspecified, without perforation or abscess without bleeding Status: Acute (3) Microcytic anemia: Code(s): D50.9 - Iron deficiency anemia, unspecified Status: Acute (4) Type 2 diabetes mellitus with hyperglycemia, with long-term current use of insulin: Code(s): E11.65 - Type 2 diabetes mellitus with hyperglycemia; Z79.4 - elastic attacher chainstitch (current) use of insulin Status: Acute (5) Hypothyroidism: Code(s): E03.9 - Hypothyroidism, unspecified Status: Chronic (6) CAD (coronary artery disease): Code(s): I25.10 - Atherosclerotic heart disease of [place] coronary artery without angina pectoris Status: Acute (7) GERD (gastroesophageal reflux disease): Code(s): K21.9 - Gastro-esophageal reflux disease without esophagitis Status: Acute (8) CHF (congestive heart failure): Qualifiers: Heart failure chronicity: chronic Heart failure type: diastolic Qualified Code(s): I50.32 - Chronic diastolic (congestive) heart failure Code(s): I50.9 - Heart failure, unspecified Status: Acute (9) Diarrhea: Code(s): R19.7 - Diarrhea, unspecified Status: Acute (10) Multiple thyroid nodules: Code(s): E04.2 - Nontoxic multinodular goiter Status: Acute Assessment and Plan: ? Plan ?Code(s): R55 - Syncope and collapse ?Status:?Acute ?Assessment and Plan: Likely to be vasovagal need to rule out a cardiogenic syncope, follow-up echocardiogram, carotid Doppler patient has neck pain no fracture on CT neck is swollen resulting from fall, neck soft tissue CT: Enlarged heterogeneous thyroid gland with multiple hypovascular masses, largest in the left lobe measuring 1.6 cm. Consider follow-up correlation with ultrasound. f/u TSH f/u with thyroid ultrasound per primary care doctor (2) Diverticulitis: ?Code(s): K57.92 - Diverticulitis of intestine, part unspecified, without perforation or abscess without bleeding ?Status:?Acute ?Assessment and Plan: Patient started on Flagyl Multiple allergies f/w c diff is negative Hypokalemia Replace the potassium chloride Follow-up BMP (3) Moderate aortic stenosis: ?Code(s): I35.0 - Nonrheumatic aortic (valve) stenosis ?Status:?Acute ?Assessment and Plan: Continue to monitor (4) Type 2 diabetes mellitus with hyperglycemia, with long-term current use of insulin: ?Code(s): E11.65 - Type 2 diabetes mellitus with hyperglycemia; Z79.4 - elastic attacher chainstitch (current) use of insulin ?Status:?Acute ?Assessment and Plan: Patient is on metformin and Farxiga at at home Insulin sliding scale as needed (5) CAD (coronary artery disease): ?Code(s): I25.10 - Atherosclerotic heart disease of [place] coronary artery without angina pectoris ?Status:?Acute ?Assessment and Plan: Chest pain-free Continue home meds (6) GERD (gastroesophageal reflux disease): ?Code(s): K21.9 - Gastro-esophageal reflux disease without esophagitis ?Status:?Acute ?Assessment and Plan: PPI as needed Subjective Date/time seen: 08/01/22 08:04 Patient denies dizziness, chest pain, palpitation, focal weakness. No new issue and event over the night Exam Narrative: Patient is laying in a stretcher Const: General: comfortable, no acute distress, well developed, alert, awake and average body habitus Nutritional Appearance: average body habitus Orientation/consciousness: patient oriented x3 HENMT: Head: normal to inspection, normocephalic and atraumatic Ears: hearing grossly normal bilaterally Face/Nose/Sinus: normal facial exam Face and sinus: normal facial exam Eyes: General: appearance normal, both eyes and all related structures Pupils: Equal, round and react
[2022-08-01 08:12] LABS: Glucose Point of Care 117 mg/dl (65-105)
[2022-08-01] MEDS: OMEGA 3 POLYUNSAT FATTY ACIDS 1 GM CAP 2 GM PO ×2 (08:57→17:20)
[2022-08-01] MEDS: EMPAGLIFLOZIN 25 MG TABLET BY MOUTH (08:57)
[2022-08-01] MEDS: POTASSIUM CHLORIDE 20 MEQ PACKET (FOR LIQUID) 40 MEQ PO (08:59)
[2022-08-01] MEDS: RIVAROXABAN 2.5 MG TABLET PO ×2 (08:59→17:21)
[2022-08-01 09:00] VITALS: PULSE 71
[2022-08-01] MEDS: EZETIMIBE 10 MG TABLET PO (09:00)
[2022-08-01] MEDS: METOPROLOL SUCCINATE EXT REL 25 MG TABCR PO (09:00)
[2022-08-01] MEDS: busPIRone HCL 2.5 MG TABLET PO ×2 (09:00→21:24)
[2022-08-01] MEDS: ATORVASTATIN 20 MG TABLET PO (09:00)
[2022-08-01] MEDS: DICYCLOMINE HCL 10 MG CAPSULE 20 MG PO ×4 (09:00→21:25)
[2022-08-01] MEDS: TICAGRELOR 90 MG TABLET PO ×2 (09:01→17:21)
[2022-08-01] MEDS: methiMAzole 10 MG TAB PO (09:01)
[2022-08-01] MEDS: PANTOPRAZOLE 40 MG TABLET PO (09:01)
[2022-08-01] MEDS: INSULIN ASPART (*BKC) 100 UNITS/ML SUB-Q (12:11)
[2022-08-01 12:14] LABS: Glucose Point of Care 208 mg/dl (65-105)
[2022-08-01 14:00] VITALS: BP 140/37; PULSE 69; RESP 16; TEMP 36.6; O2SAT 100
[2022-08-01 17:03] LABS: Glucose Point of Care 133 mg/dl (65-105)
[2022-08-01] MEDS: SERTRALINE HCL 50 MG TABLET 100 MG PO (21:26)
[2022-08-01 22:00] VITALS: BP 114/67; PULSE 66; RESP 17; TEMP 36.4; O2SAT 100
[2022-08-01] MEDS: ALPRAZolam (*CRX) 0.5 MG TABLET PO (22:08)
[2022-08-01 22:48] LABS: Glucose Point of Care 165 mg/dl (65-105)
[2022-08-02] MEDS: MORPHINE SULFATE (*CRX) 2 MG/ML INJ IV PUSH (00:36)
[2022-08-02] MEDS: metroNIDAZOLE 500 MG/ISO 100ML 500 MG/100 ML BAG 100 MG IVPB (05:50)
[2022-08-02 06:00] VITALS: BP 147/38; PULSE 70; RESP 18; TEMP 36.2; O2SAT 99
[2022-08-02 06:35] LABS: Hematocrit 30.1 % (37.0-47.0); Hemoglobin 9.1 g/dL (12.0-15.0); Mean Corpuscular HGB Conc 30.2 g/dl (32-36); Mean Corpuscular Hemoglobin 23.1 pg (26-34); Mean Corpuscular Volume 76.4 fl (80-100); Mean Platelet Volume 9.1 fl (7.4-10.4); Platelet Count Result 303 k/mm3 (150-375); Red Blood Count 3.94 M/mm3 (4.2-5.4); Red Cell Distribution Width 17.4 % (11.5-14.5); White Blood Count 8.1 K/mm3 (4.5-10.0)
[2022-08-02 06:47] LABS: Anion Gap 6 mmol/L (8-16); Blood Urea Nitrogen 17 mg/dL (7-17); Calcium 8.6 mg/dL (8.4-10.2); Carbon Dioxide 24 mmol/L (22-30); Chloride 108 mmol/L (98-107); Estimated CRCL calculation 41 ml/min; Estimated Glomerular Filt Rate 54; Glucose 107 mg/dL (65-110); Potassium 3.8 mmol/L (3.4-5.0); Sodium 138 mmol/L (137-145)
[2022-08-02 08:19] LABS: Glucose Point of Care 106 mg/dl (65-105)
[2022-08-02] MEDS: OMEGA 3 POLYUNSAT FATTY ACIDS 1 GM CAP 2 GM PO (09:01)
[2022-08-02 09:02] VITALS: PULSE 96
[2022-08-02] MEDS: METOPROLOL SUCCINATE EXT REL 25 MG TABCR PO (09:02)
[2022-08-02] MEDS: TICAGRELOR 90 MG TABLET PO (09:02)
[2022-08-02] MEDS: EMPAGLIFLOZIN 25 MG TABLET BY MOUTH (09:03)
[2022-08-02] MEDS: busPIRone HCL 2.5 MG TABLET PO (09:03)
[2022-08-02] MEDS: ATORVASTATIN 20 MG TABLET PO (09:03)
[2022-08-02] MEDS: RIVAROXABAN 2.5 MG TABLET PO (09:03)
[2022-08-02] MEDS: EZETIMIBE 10 MG TABLET PO (09:03)
[2022-08-02] MEDS: methiMAzole 10 MG TAB PO (09:03)
[2022-08-02] MEDS: PANTOPRAZOLE 40 MG TABLET PO (09:03)
[2022-08-02] MEDS: DICYCLOMINE HCL 10 MG CAPSULE 20 MG PO ×2 (09:04→12:39)
[2022-08-02] MEDS: POTASSIUM CHLORIDE 20 MEQ PACKET (FOR LIQUID) 40 MEQ PO (09:04)
--- NOTE | 2022-08-02 11:40 | PM.DS ---
DS: Admitting Diagnosis Discharge Date 08/02/22 Admitting Diagnosis syncope DS: Discharge Diagnosis Discharge Diagnosis (1) Syncope: Code(s): R55 - Syncope and collapse Status: Acute (2) Diverticulitis: Code(s): K57.92 - Diverticulitis of intestine, part unspecified, without perforation or abscess without bleeding Status: Acute (3) Microcytic anemia: Code(s): D50.9 - Iron deficiency anemia, unspecified Status: Acute (4) Type 2 diabetes mellitus with hyperglycemia, with long-term current use of insulin: Code(s): E11.65 - Type 2 diabetes mellitus with hyperglycemia; Z79.4 - custodial (current) use of insulin Status: Acute (5) Hypothyroidism: Code(s): E03.9 - Hypothyroidism, unspecified Status: Chronic (6) CAD (coronary artery disease): Code(s): I25.10 - Atherosclerotic heart disease of [place] coronary artery without angina pectoris Status: Acute (7) GERD (gastroesophageal reflux disease): Code(s): K21.9 - Gastro-esophageal reflux disease without esophagitis Status: Acute (8) CHF (congestive heart failure): Qualifiers: Heart failure type: diastolic Heart failure chronicity: chronic Qualified Code(s): I50.32 - Chronic diastolic (congestive) heart failure Code(s): I50.9 - Heart failure, unspecified Status: Acute (9) Diarrhea: Code(s): R19.7 - Diarrhea, unspecified Status: Acute (10) Multiple thyroid nodules: Code(s): E04.2 - Nontoxic multinodular goiter Status: Acute Assessment and Plan: ? Plan ?Code(s): R55 - Syncope and collapse ?Status:?Acute ?Assessment and Plan: Likely to be vasovagal need to rule out a cardiogenic syncope, follow-up echocardiogram normal EF, no significant valvular disease, carotid Doppler does not show significant stenosis patient has neck pain no fracture on CT neck is swollen resulting from fall, neck soft tissue CT: Enlarged heterogeneous thyroid gland with multiple hypovascular masses, largest in the left lobe measuring 1.6 cm. Consider follow-up correlation with ultrasound. advised patient to see primary care doctor, follow-up with thyroid ultrasound per primary care doctor : Patient is hemodynamically stable, denies dizziness, headache, focal weakness (2) Diverticulitis: ?Code(s): K57.92 - Diverticulitis of intestine, part unspecified, without perforation or abscess without bleeding ?Status:?Acute ?Assessment and Plan: received Flagyl Multiple allergies f/w c diff is negative currently patient denies abdomen pain, diarrhea nausea vomiting Hypokalemia Replace the potassium chloride Follow-up BMP, corrected (3) Moderate aortic stenosis: ?Code(s): I35.0 - Nonrheumatic aortic (valve) stenosis ?Status:?Acute ?Assessment and Plan: Continue to monitor (4) Type 2 diabetes mellitus with hyperglycemia, with long-term current use of insulin: ?Code(s): E11.65 - Type 2 diabetes mellitus with hyperglycemia; Z79.4 - buttermaker (current) use of insulin ?Status:?Acute ?Assessment and Plan: Patient is on metformin and Farxiga at at home Insulin sliding scale as needed during hospitalization resume home medication at discharge (5) CAD (coronary artery disease): ?Code(s): I25.10 - Atherosclerotic heart disease of [place] coronary artery without angina pectoris ? ? Chest pain-free Continue home meds (6) GERD (gastroesophageal reflux disease): ?Code(s): K21.9 - Gastro-esophageal reflux disease without esophagitis ?Status:?Acute ?Assessment and Plan: PPI as needed DS: Summary Hospital Course Reason for hospitalization: syncope, Hospital Course: This is a 76-year-old female with past medical history significant for coronary artery disease, Crohn's, fibromyalgia, type 2 diabetes mellitus, GERD, chronic back pain.? Patient presents to the emergency room a after she
[2022-08-02 12:08] LABS: Glucose Point of Care 164 mg/dl (65-105)
== END 2022-08-02 13:30 | disposition home or self-care (01) ==
LOC: ANHED 23:34 → ANH3MEDSUR 07-30 14:32
PROVIDERS: Emergency Medicine; Admitting Provider Internal Medicine; Emergency Provider Emergency Medicine; PCP Internal Medicine; Visit Provider Hospitalist
DX: R55 Syncope and collapse (principal); E87.6 Hypokalemia; K57.92 Diverticulitis of intestine, part unspecified, without perforation or abscess without bleeding; I35.0 Nonrheumatic aortic (valve) stenosis; E11.65 Type 2 diabetes mellitus with hyperglycemia; E03.9 Hypothyroidism, unspecified; K21.9 Gastro-esophageal reflux disease without esophagitis; I11.0 Hypertensive heart disease with heart failure; I50.32 Chronic diastolic (congestive) heart failure; I65.29 Occlusion and stenosis of unspecified carotid artery; R00.1 Bradycardia, unspecified; S49.91XA Unspecified injury of right shoulder and upper arm, initial encounter; W18.11XA Fall from or off toilet without subsequent striking against object, initial encounter; K52.9 Noninfective gastroenteritis and colitis, unspecified; R29.6 Repeated falls; D64.9 Anemia, unspecified; F41.9 Anxiety disorder, unspecified; I25.10 Atherosclerotic heart disease of native coronary artery without angina pectoris; Z95.5 Presence of coronary angioplasty implant and graft; E04.2 Nontoxic multinodular goiter; Z95.1 Presence of aortocoronary bypass graft; M54.9 Dorsalgia, unspecified; E78.5 Hyperlipidemia, unspecified; F41.8 Other specified anxiety disorders; N39.0 Urinary tract infection, site not specified; K50.90 Crohn's disease, unspecified, without complications; R90.82 White matter disease, unspecified; M79.7 Fibromyalgia; Z86.718 Personal history of other venous thrombosis and embolism; Z86.73 Personal history of transient ischemic attack (TIA), and cerebral infarction without residual deficits; Z79.01 Long term (current) use of anticoagulants; Z79.899 Other long term (current) drug therapy; Z82.49 Family history of ischemic heart disease and other diseases of the circulatory system; Z82.3 Family history of stroke
CPT/HCPCS: 36415; 70450; 70486; 70491; 72125; 73030; 74177; 80048; 80053; 82948; 83735; 84100; 85025; 85027; 87493; 87636; 93005; 93306; 93880; 96365; 96366; 96375; 96376; 99285; A9270; G0378; J1815; J2270; Q9967

== ENCOUNTER 2022-09-22 16:29 | Emergency (ER) | payer MEDICARE, MEDICAID, SELFPAY ==
--- NOTE | ~2022-09-22 | XR_ITS ---
EXAM: XR hip RT 2V w AP pelvis DATE: 09/22/2022 17:40 HISTORY: FALL 9 DAYS AGO RT SIDE BP RADIATES DOWN RT LEG . COMPARISON: 08/14/2021. FINDINGS: Normal mineralization. No fracture or dislocation. No lytic or blastic lesion. Degenerativ e changes in the spine and bilateral hips. Osteopenia. Scattered pelvic and hip enthesopathy. No eros ion or periosteal change. Atherosclerotic vascular calcifications. Pelvic phleboliths. IMPRESSION: No acute osseous finding in the pelvis or right hip. Reviewed, dictated and finalized at location K. DINGS PAINTER
--- NOTE | ~2022-09-22 | XR_ITS ---
EXAM: XR lumbar spine 2-3V DATE: 09/22/2022 17:40 HISTORY: FALL 9 DAYS AGO RIGHT SIDE LOWER BACK PAIN . COMPARISON: CT abdomen and pelvis 07/29/2022, CT L-spine 01/29/2020. FINDINGS: Osteopenia. 5 nonrib-bearing lumbar-type vertebral bodies. Rudimentary disc at S1-2. Verteb roplasty cement at L2, with unchanged mild height loss. Scattered vascular calcifications. Cholecyste ctomy clips. Pelvic phleboliths. Unchanged grade 1 anterolisthesis at L5-S1. No evident aortic aneury sm. Multilevel degenerative disc disease and facet arthropathy. IMPRESSION: No acute fracture or traumatic malalignment detected in the lumbar spine. Reviewed, dictated and finalized at location K. GER CAFE
[2022-09-22 16:43] VITALS: BP 120/52; PULSE 62; RESP 12; TEMP 36.8; O2SAT 100
--- NOTE | 2022-09-22 17:23 | ED.GENADULT ---
HPI - General Adult General Chief complaint: Back Pain/Injury Stated complaint: Back/Right Side Flank Pain Source: patient Mode of arrival: ambulatory Limitations: no limitations History of Present Illness HPI narrative: Patient presents for evaluation of pain following a fall nine days ago. She indicates she was walking onto her porch and bent forward when she lost her balance, this caused her to fall to the ground. She hit her left lower extremity and left upper extremity against some decorative blocks. She did not hit her head. No loss of consciousness. She is anticoagulated with xarelto. She now reports pain in the right posterior pelvis which radiates down the posterior aspect of her right lower extremity. She is taking Tylenol for symptoms. She states she cannot take NSAIDs. She rates her pain 7 on 10 severity. She does have underlying peripheral neuropathy. No bladder or bowel incontinence. Related Data Home Medications Medication Instructions Recorded Confirmed atorvastatin 20 mg tablet 20 mg PO DAILY 09/26/19 09/22/22 dapagliflozin 10 mg tablet 10 mg PO DAILY 09/18/20 09/22/22 (Farxiga) ezetimibe 10 mg tablet 10 mg PO DAILY 09/18/20 09/22/22 icosapent ethyl 1 gram capsule 2 g PO BID 09/18/20 09/22/22 (Vascepa) semaglutide 0.25 mg or 0.5 mg (2 0.25 - 0.5 mg subcut WEEKLY 09/18/20 09/22/22 mg/1.5 mL) subcutaneous pen injector (Ozempic) pantoprazole 40 mg tablet,delayed 40 mg PO DAILY 10/03/20 09/22/22 release dicyclomine 20 mg tablet 20 mg PO QID 04/23/21 09/22/22 furosemide 40 mg tablet 40 mg PO QAM 04/23/21 09/22/22 ticagrelor 90 mg tablet (Brilinta) 90 mg PO BID 05/03/21 09/22/22 buspirone 5 mg tablet 2.5 mg PO BID 04/02/22 09/22/22 methimazole 5 mg tablet 10 mg PO DAILY 04/02/22 09/22/22 metoprolol succinate 25 mg 25 mg PO DAILY 04/02/22 09/22/22 tablet,extended release 24 hr potassium chloride 20 mEq 20 meq PO DAILY 04/02/22 09/22/22 tablet,extended release(part/cryst) (Klor-Con M) sertraline 100 mg tablet 100 mg PO HS 04/02/22 09/22/22 rivaroxaban 2.5 mg tablet (Xarelto) 2.5 mg PO BID 07/30/22 09/22/22 Allergies Allergy/AdvReac Type Severity Reaction Status Date / Time ranolazine Allergy Intermediate Unknown Verified 08/13/22 13:36 gabapentin Allergy Mild Confusion Verified 08/13/22 13:36 cyclobenzaprine Allergy Unknown Unknown Verified 08/13/22 13:36 fentanyl Allergy Unknown Unknown Verified 08/13/22 13:36 ciprofloxacin [From Cipro] Allergy Unknown Verified 08/13/22 13:36 doxycycline Allergy Unknown Verified 08/13/22 13:36 Penicillins Allergy Anaphylaxis Verified 08/13/22 13:36 Review of Systems Review of Systems: CONSTITUTIONAL: Denies fever, chills, or sweats. EYES: Denies visual changes, redness, or discharge. ENT: Denies rhinorrhea, congestion, sore throat, or otalgia. CARDIOVASCULAR: Denies chest pain, palpitations, or edema. RESPIRATORY: Denies cough or dyspnea. GASTROINTESTINAL: Denies abdominal pain, nausea, vomiting, or diarrhea. GENITOURINARY: Denies dysuria or hematuria. SKIN: Denies rash or itching. MUSCULOSKELETAL:Reports pain in right posterior pelvis with radiation down posterior aspect of right lower extremity NEUROLOGIC: Denies headache, numbness, dizziness, or weakness. PSYCHIATRIC: Denies anxiety or depression. [facility] Past Medical History Medical History (Updated 09/22/22 @ 18:08 by Doug Landry, [facility], ) Anemia Anxiety Back contusion Back pain CAD (coronary artery disease) Cataracts, bilateral CHF (congestive heart failure) Colitis Crohn's disease Depression Depression with anxiety Diabetes mellitus DVT (deep venous thrombosis) Fibromyalgia Gastrointestinal ulcer GERD (gastroesophageal reflux disease) History of angina HLD (hyperlipidemia) HTN (hypertension) Hypothyroidism IBS (irritable bowel syndrome) Kidney stones TIA (transient ischemic attack) UTI (urinary tract infection) Surgical History Surgical History (Reviewed 09/22/22 @
--- NOTE | 2022-09-23 17:06 | PC.NURSE ---
[facility] pharmacy called and requested clarification on order from yesterday for hydrocodone. stated pt has another rx alprazolam from another physician. aware this rn will inform inpatient pharmacist today of concern. aimee aware of staff rotation and provider from yesterday not present today. inpatient pharmacist at this time will discuss rx with pharmacy. pharmacy aware to recommend f/u with pmd.
== END 2022-09-22 18:22 | disposition home or self-care (01) ==
PROVIDERS: Emergency Provider Nurse Practitioner; PCP Nurse Practitioner Family
DX: S30.0XXA Contusion of lower back and pelvis, initial encounter (principal); I25.10 Atherosclerotic heart disease of native coronary artery without angina pectoris; E78.5 Hyperlipidemia, unspecified; I10 Essential (primary) hypertension; E11.9 Type 2 diabetes mellitus without complications; E03.9 Hypothyroidism, unspecified; Z86.718 Personal history of other venous thrombosis and embolism; Z79.01 Long term (current) use of anticoagulants; Z86.73 Personal history of transient ischemic attack (TIA), and cerebral infarction without residual deficits; W18.39XA Other fall on same level, initial encounter
CPT/HCPCS: 72100; 73502; 99214; G0463

== ENCOUNTER 2022-09-28 13:33 | Emergency (ER) | payer MEDICARE, MEDICAID, SELFPAY ==
[2022-09-28 13:48] VITALS: BP 135/58; PULSE 80; RESP 12; TEMP 36.4; O2SAT 100
--- NOTE | 2022-09-28 14:22 | ED.LOWEXIN ---
HPI - Extremity Injury (Lower) General Chief Complaint: Extremity Injury, Lower Stated Complaint: Right Hip/Leg Pain Time Seen by Provider: 09/28/22 14:28 Source: patient, RN notes reviewed and old records reviewed Mode of arrival: ambulatory Limitations: no limitations History of Present Illness HPI Narrative: 76-year-old female returns to the [facility] after being evaluated 6 days ago. Patient reports that she fell 8 days prior to that. Reviewed x-rays of her lumbar and pelvis and hip which were -6 days ago. 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 Patient states that it has not gotten worse but states it has not gotten any better. States that she tried calling her primary and was told she has to keep original appointment that they can not move it up. Wants something stronger than Tylenol for pain. Patient walking with a steady gait Onset (ago): day(s) (14) Related Data Home Medications Medication Instructions Recorded Confirmed atorvastatin 20 mg tablet 20 mg PO DAILY 09/26/19 09/28/22 dapagliflozin 10 mg tablet 10 mg PO DAILY 09/18/20 09/28/22 (Farxiga) ezetimibe 10 mg tablet 10 mg PO DAILY 09/18/20 09/28/22 icosapent ethyl 1 gram capsule 2 g PO BID 09/18/20 09/28/22 (Vascepa) semaglutide 0.25 mg or 0.5 mg (2 0.25 - 0.5 mg subcut WEEKLY 09/18/20 09/28/22 mg/1.5 mL) subcutaneous pen injector (Ozempic) pantoprazole 40 mg tablet,delayed 40 mg PO DAILY 10/03/20 09/28/22 release dicyclomine 20 mg tablet 20 mg PO QID 04/23/21 09/28/22 furosemide 40 mg tablet 40 mg PO QAM 04/23/21 09/28/22 ticagrelor 90 mg tablet (Brilinta) 90 mg PO BID 05/03/21 09/28/22 buspirone 5 mg tablet 2.5 mg PO BID 04/02/22 09/28/22 methimazole 5 mg tablet 10 mg PO DAILY 04/02/22 09/28/22 metoprolol succinate 25 mg 25 mg PO DAILY 04/02/22 09/28/22 tablet,extended release 24 hr potassium chloride 20 mEq 20 meq PO DAILY 04/02/22 09/28/22 tablet,extended release(part/cryst) (Klor-Con M) sertraline 100 mg tablet 100 mg PO HS 04/02/22 09/28/22 rivaroxaban 2.5 mg tablet (Xarelto) 2.5 mg PO BID 07/30/22 09/28/22 Allergies Allergy/AdvReac Type Severity Reaction Status Date / Time ranolazine Allergy Intermediate Unknown Verified 09/28/22 14:05 gabapentin Allergy Mild Confusion Verified 09/28/22 14:05 cyclobenzaprine Allergy Unknown Unknown Verified 09/28/22 14:05 fentanyl Allergy Unknown Unknown Verified 09/28/22 14:05 ciprofloxacin [From Cipro] Allergy Unknown Verified 09/28/22 14:05 doxycycline Allergy Unknown Verified 09/28/22 14:05 Penicillins Allergy Anaphylaxis Verified 09/28/22 14:05 Review of Systems Review of Systems: All systems reviewed & are unremarkable except as noted in HPI and below Constitutional: Constitutional: Reports no additional constitutional complaints Eyes: Eyes: Reports no additional eye complaints ENT: Reports system reviewed and no additional complaints, except as documented Cardiovascular: Cardiovascular: Reports no additional cardiovascular complaints, Denies chest pain and Denies dyspnea Respiratory: Respiratory: Reports no additional respiratory complaints, Denies chest congestion, Denies cough and Denies dyspnea Gastrointestinal: Gastrointestinal: Reports no additional gastrointestinal complaints, Denies abdominal pain, Denies nausea and Denies vomiting Musculoskeletal: Musculoskeletal: Reports as per HPI, Reports arthralgias (Right hip) and Denies joint swelling Integumentary/Breasts: Skin/Breast: Reports system reviewed and no additional complaints, except as docu Neurologic: Reports system reviewed and no additional complaints, except as documented Psychiatric: Psychiatric: Reports no additional psychiatric complaints Allergic/Immunologic: Allergic/Immunologic: Reports no additional allergic/immunologic complaints PMFSH Past Medical History Medical History Anemia Anx
== END 2022-09-28 14:47 | disposition home or self-care (01) ==
PROVIDERS: Emergency Provider Nurse Practitioner; PCP Nurse Practitioner Family
DX: M25.551 Pain in right hip (principal); E11.9 Type 2 diabetes mellitus without complications; E78.5 Hyperlipidemia, unspecified; E03.9 Hypothyroidism, unspecified; I11.0 Hypertensive heart disease with heart failure; I50.9 Heart failure, unspecified; I25.10 Atherosclerotic heart disease of native coronary artery without angina pectoris; Z79.01 Long term (current) use of anticoagulants; Z86.73 Personal history of transient ischemic attack (TIA), and cerebral infarction without residual deficits; W19.XXXA Unspecified fall, initial encounter
CPT/HCPCS: 99213; G0463

== ENCOUNTER 2022-12-04 11:43 | Emergency (ER) | payer MEDICARE, MEDICAID, SELFPAY ==
[2022-12-04 12:07] VITALS: BP 119/53; PULSE 60; RESP 18; TEMP 36.6; O2SAT 100
--- NOTE | 2022-12-04 12:45 | ED.EAR ---
HPI - Ear Problem General Chief complaint: Ear Stated complaint: ear ache in both ears Time Seen by Provider: 12/04/22 12:34 Source: patient Mode of arrival: ambulatory Limitations: no limitations History of Present Illness HPI Narrative: Patient presents today complaining of bilateral ear pain x at least 2 weeks. States she had a sinus infection approximately 1 month ago and had some muffled hearing and ear pressure since then. She currently rates her pain 7/10. She has tried Benadryl in warm compresses without much relief. She has also flushed her ears of ear wax, which did help her here little bit better. Related Data Home Medications Medication Instructions Recorded Confirmed atorvastatin 20 mg tablet 20 mg PO DAILY 09/26/19 12/04/22 dapagliflozin 10 mg tablet 10 mg PO DAILY 09/18/20 12/04/22 (Farxiga) ezetimibe 10 mg tablet 10 mg PO DAILY 09/18/20 12/04/22 icosapent ethyl 1 gram capsule 2 g PO BID 09/18/20 12/04/22 (Vascepa) semaglutide 0.25 mg or 0.5 mg (2 0.25 - 0.5 mg subcut WEEKLY 09/18/20 12/04/22 mg/1.5 mL) subcutaneous pen injector (Ozempic) pantoprazole 40 mg tablet,delayed 40 mg PO DAILY 10/03/20 12/04/22 release dicyclomine 20 mg tablet 20 mg PO QID 04/23/21 12/04/22 furosemide 40 mg tablet 40 mg PO QAM 04/23/21 12/04/22 ticagrelor 90 mg tablet (Brilinta) 90 mg PO BID 05/03/21 12/04/22 buspirone 5 mg tablet 2.5 mg PO BID 04/02/22 12/04/22 methimazole 5 mg tablet 10 mg PO DAILY 04/02/22 12/04/22 metoprolol succinate 25 mg 25 mg PO DAILY 04/02/22 12/04/22 tablet,extended release 24 hr potassium chloride 20 mEq 20 meq PO DAILY 04/02/22 12/04/22 tablet,extended release(part/cryst) (Klor-Con M) sertraline 100 mg tablet 100 mg PO HS 04/02/22 12/04/22 rivaroxaban 2.5 mg tablet (Xarelto) 2.5 mg PO BID 07/30/22 12/04/22 Allergies Allergy/AdvReac Type Severity Reaction Status Date / Time ranolazine Allergy Intermediate Unknown Verified 09/28/22 14:05 gabapentin Allergy Mild Confusion Verified 09/28/22 14:05 cyclobenzaprine Allergy Unknown Unknown Verified 09/28/22 14:05 fentanyl Allergy Unknown Unknown Verified 09/28/22 14:05 ciprofloxacin [From Cipro] Allergy Unknown Verified 09/28/22 14:05 doxycycline Allergy Unknown Verified 09/28/22 14:05 Penicillins Allergy Anaphylaxis Verified 09/28/22 14:05 Review of Systems Review of Systems: CONSTITUTIONAL: Denies body aches, fever, chills, or sweats. EYES: Denies visual changes, redness, or discharge. ENT: Denies rhinorrhea, congestion, sore throat. + bilateral ear pain CARDIOVASCULAR: Denies chest pain, palpitations, or edema. RESPIRATORY: Denies cough or dyspnea. GASTROINTESTINAL: Denies abdominal pain, nausea, vomiting, or diarrhea. GENITOURINARY: Denies dysuria or hematuria. SKIN: Denies rash, itching, or wounds. MUSCULOSKELETAL: Denies back pain, joint pain, or myalgia. NEUROLOGIC: Denies headache, numbness, tingling, or weakness. PSYCH: Denies depression or anxiety. [facility], [facility] Past Medical History Medical History Anemia Anxiety Back contusion Back pain CAD (coronary artery disease) Cataracts, bilateral CHF (congestive heart failure) Colitis Crohn's disease Depression Depression with anxiety Diabetes mellitus DVT (deep venous thrombosis) Fibromyalgia Gastrointestinal ulcer GERD (gastroesophageal reflux disease) History of angina HLD (hyperlipidemia) HTN (hypertension) Hypothyroidism IBS (irritable bowel syndrome) Kidney stones TIA (transient ischemic attack) UTI (urinary tract infection) Surgical History Surgical History H/O cataract extraction H/O heart artery stent History of bladder surgery History of hysterectomy History of loop recorder History of right knee joint replacement Hx of appendectomy Hx of CABG Hx of cardiac catheterization Hx of cholecystectomy Hx of spinal surgery S/P periphera
== END 2022-12-04 12:55 | disposition home or self-care (01) ==
PROVIDERS: Emergency Provider Nurse Practitioner
DX: H65.03 Acute serous otitis media, bilateral (principal); I25.10 Atherosclerotic heart disease of native coronary artery without angina pectoris; I11.0 Hypertensive heart disease with heart failure; I50.9 Heart failure, unspecified; K50.90 Crohn's disease, unspecified, without complications; Z86.718 Personal history of other venous thrombosis and embolism; M79.7 Fibromyalgia; K21.9 Gastro-esophageal reflux disease without esophagitis; E78.5 Hyperlipidemia, unspecified; Z95.5 Presence of coronary angioplasty implant and graft; Z96.651 Presence of right artificial knee joint; F41.9 Anxiety disorder, unspecified; F32.A Depression, unspecified
CPT/HCPCS: 99213; G0463

== ENCOUNTER 2023-01-29 14:40 | Emergency (ER) | payer MEDICARE, MEDICAID, SELFPAY ==
[2023-01-29 14:51] VITALS: BP 108/59; PULSE 67; RESP 14; TEMP 36.3; O2SAT 100
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
--- NOTE | 2023-01-29 14:52 | ECG_ITS ---
Measurements Intervals [place] Rate: 63 P: 53 AK: 189 QRS: 39 QRSD: 82 T: 61 QT: 420 QTc: 431 Interpretive Statements SINUS RHYTHM MINIMAL Q WAVES- INFERIOR LEADS ANTEROSEPTAL INFARCT, AGE INDETERMINATE ABNORMAL ECG COMPARED TO ECG 07/31/2022 04:35:30 NO SIGNIFICANT CHANGES Electronically Signed On 01-30-2023 16:25:52 CDT by Naldo Tamayo D.O.
[2023-01-29 15:28] LABS: Glucose Point of Care 108 mg/dl (65-105)
== END 2023-01-29 15:45 | disposition home or self-care (01) ==
PROVIDERS: Emergency Provider Nurse Practitioner Family; PCP Nurse Practitioner Family
DX: H66.91 Otitis media, unspecified, right ear (principal); I11.0 Hypertensive heart disease with heart failure; I50.9 Heart failure, unspecified; F41.9 Anxiety disorder, unspecified; F32.A Depression, unspecified; K50.90 Crohn's disease, unspecified, without complications; E11.9 Type 2 diabetes mellitus without complications; Z86.718 Personal history of other venous thrombosis and embolism; M79.7 Fibromyalgia; I25.110 Atherosclerotic heart disease of native coronary artery with unstable angina pectoris; E78.5 Hyperlipidemia, unspecified; E03.9 Hypothyroidism, unspecified; Z86.73 Personal history of transient ischemic attack (TIA), and cerebral infarction without residual deficits; Z95.5 Presence of coronary angioplasty implant and graft; Z96.651 Presence of right artificial knee joint; Z79.01 Long term (current) use of anticoagulants
CPT/HCPCS: 81003; 82948; 93005; 99213; G0463

== ENCOUNTER 2023-02-09 14:24 | Emergency (ER) | payer MEDICARE, MEDICAID, SELFPAY ==
--- NOTE | ~2023-02-09 | XR_ITS ---
EXAM: XR humerus RT DATE: 02/09/2023 15:05 HISTORY: diffuse rt humerus pain s/p fall 1 week ago . COMPARISON: None available. FINDINGS: Normal mineralization. Old healed right rib fracture. No fracture or dislocation. No lytic or blastic lesion. Mild degenerative changes in the shoulder and elbow. Ovoid calcifications over th e axilla, unchanged. Cholecystectomy clips. No erosion or periosteal change. Soft tissues within norm al limits. IMPRESSION: No acute osseous finding in the right humerus 07/30/2017. Reviewed, dictated and finalized at location K.
--- NOTE | 2023-02-09 14:25 | ED.ABDPAIN ---
HPI - Abdominal Pain General Chief Complaint: Extremity Injury, Upper Stated Complaint: right side pain Time Seen by Provider: 02/09/23 14:25 Source: patient Mode of arrival: ambulatory Limitations: no limitations History of Present Illness HPI narrative: Ms. Rawls is a 77-year-old female patient presenting to the clinic today with complaints of right-sided shoulder pain since Wednesday. She reports she fell on Wednesday and landed on the right shoulder. Is having pain over the humerus and shoulder as well as the pain radiated up into her neck. She denies hitting her head or any loss of consciousness when she fell. States she is unable to raise her arm above her head due to the pain Related Data Home Medications Medication Instructions Recorded Confirmed atorvastatin 20 mg tablet 20 mg PO DAILY 09/26/19 01/29/23 dapagliflozin propanediol 10 mg 10 mg PO DAILY 09/18/20 01/29/23 tablet (Farxiga) ezetimibe 10 mg tablet 10 mg PO DAILY 09/18/20 01/29/23 icosapent ethyl 1 gram capsule 2 g PO BID 09/18/20 01/29/23 (Vascepa) pantoprazole 40 mg tablet,delayed 40 mg PO DAILY 10/03/20 01/29/23 release dicyclomine 20 mg tablet 20 mg PO QID 04/23/21 01/29/23 furosemide 40 mg tablet 40 mg PO QAM 04/23/21 01/29/23 ticagrelor 90 mg tablet (Brilinta) 90 mg PO BID 05/03/21 01/29/23 buspirone 5 mg tablet 2.5 mg PO BID 04/02/22 01/29/23 methimazole 5 mg tablet 10 mg PO DAILY 04/02/22 01/29/23 metoprolol succinate 25 mg 25 mg PO DAILY 04/02/22 01/29/23 tablet,extended release 24 hr potassium chloride 20 mEq 20 meq PO DAILY 04/02/22 01/29/23 tablet,extended release(part/cryst) (Klor-Con M) sertraline 100 mg tablet 100 mg PO HS 04/02/22 01/29/23 rivaroxaban 2.5 mg tablet (Xarelto) 2.5 mg PO DAILY 01/29/23 01/29/23 Allergies Allergy/AdvReac Type Severity Reaction Status Date / Time ranolazine Allergy Intermediate Unknown Verified 02/09/23 14:43 gabapentin Allergy Mild Confusion Verified 02/09/23 14:43 cyclobenzaprine Allergy Unknown Unknown Verified 02/09/23 14:43 fentanyl Allergy Unknown Unknown Verified 02/09/23 14:43 ciprofloxacin [From Cipro] Allergy Unknown Verified 02/09/23 14:43 doxycycline Allergy Unknown Verified 02/09/23 14:43 Penicillins Allergy Anaphylaxis Verified 02/09/23 14:43 Review of Systems Review of Systems: Pertinent positives per HPI. Patient denies any fever, chills, rash, headache, visual changes, dizziness, cough, runny nose, sore throat, shortness of breath, chest pain, palpitations, nausea, vomiting, diarrhea, constipation, abdominal pain, or any urinary issues. [facility] Past Medical History Medical History Anemia Anxiety Back contusion Back pain CAD (coronary artery disease) Cataracts, bilateral CHF (congestive heart failure) Colitis Crohn's disease Depression Depression with anxiety Diabetes mellitus DVT (deep venous thrombosis) Fibromyalgia Gastrointestinal ulcer GERD (gastroesophageal reflux disease) History of angina HLD (hyperlipidemia) HTN (hypertension) Hypothyroidism IBS (irritable bowel syndrome) Kidney stones TIA (transient ischemic attack) UTI (urinary tract infection) Surgical History Surgical History H/O cataract extraction H/O heart artery stent History of bladder surgery History of hysterectomy History of loop recorder History of right knee joint replacement Hx of appendectomy Hx of CABG Hx of cardiac catheterization Hx of cholecystectomy Hx of spinal surgery S/P peripheral artery angioplasty with stent placement Family History Family History Father Cerebrovascular accident, Onset Age: 62 Family history of coronary artery disease Family history of alcoholism Acute myocardial infarction, Onset Age: 62 Patient's father is Mother Cerebrovas
[2023-02-09 14:39] VITALS: BP 127/53; PULSE 53; RESP 20; TEMP 37.1; O2SAT 100
== END 2023-02-09 15:28 | disposition home or self-care (01) ==
PROVIDERS: Emergency Provider Nurse Practitioner Family; PCP Nurse Practitioner Family
DX: S46.911A Strain of unspecified muscle, fascia and tendon at shoulder and upper arm level, right arm, initial encounter (principal); W19.XXXA Unspecified fall, initial encounter; K50.90 Crohn's disease, unspecified, without complications; M79.7 Fibromyalgia; K21.9 Gastro-esophageal reflux disease without esophagitis; E03.9 Hypothyroidism, unspecified; I11.0 Hypertensive heart disease with heart failure; I50.9 Heart failure, unspecified; I25.110 Atherosclerotic heart disease of native coronary artery with unstable angina pectoris; Z86.718 Personal history of other venous thrombosis and embolism; Z86.73 Personal history of transient ischemic attack (TIA), and cerebral infarction without residual deficits; Z95.5 Presence of coronary angioplasty implant and graft; Z96.651 Presence of right artificial knee joint; F41.9 Anxiety disorder, unspecified; F32.A Depression, unspecified
CPT/HCPCS: 73060; 99213; A4565; G0463

== ENCOUNTER 2023-06-29 12:47 | Outpatient (CLI) | payer MEDICARE, MEDICAID, SELFPAY ==
[2023-06-29 13:01] LABS: Basophils Absolute Auto 0.1 K/mm3 (0.0-0.1); Basophils Percent Auto 0.8 % (0.2-1.2); Eosinophils Absolute Auto 0.3 K/mm3 (0-0.3); Eosinophils Percent Auto 3.9 % (0-4.4); Hematocrit 37.8 % (37.0-47.0); Hemoglobin 11.8 g/dL (12.0-15.0); Immature Granulocyte Absolute 0.02 K/mm3 (0.00-0.031); Immature Granulocyte Percent A 0.2 % (0-0.5); Lymphocytes Percent Auto 34.3 % (18.3-44.2); Mean Corpuscular HGB Conc 31.2 g/dl (32-36); Mean Corpuscular Hemoglobin 27.4 pg (26-34); Mean Corpuscular Volume 87.9 fl (80-100); Mean Platelet Volume 8.9 fl (7.4-10.4); Monocytes Absolute Auto 0.9 K/mm3 (0.1-0.6); Monocytes Percent Auto 10.5 % (2.6-8.5); Neutrophils Absolute Auto 4.4 K/mm3 (1.3-6.7); Neutrophils Percent Auto 50.3 % (45.5-73.1); Platelet Count Result 337 k/mm3 (150-375); Red Cell Distribution Width 14.9 % (11.5-14.5); White Blood Count 8.8 K/mm3 (4.5-10.0)
[2023-06-29 14:24] LABS: Iron 50 ug/dL (37-170)
[2023-06-29 14:25] LABS: Percent Iron Saturation 13 % (20-50)
[2023-06-29 15:04] LABS: Folic Acid 7.2 ng/mL (2.76->20); Vitamin B12 > 1000.0 pg/mL (239-931)
== END 2023-06-29 12:48 | disposition home or self-care (01) ==
LOC: ANHLAB 12:49
PROVIDERS: PCP Nurse Practitioner Family; Visit Provider Internal Medicine Hematology & Oncology
DX: D64.9 Anemia, unspecified (principal)
CPT/HCPCS: 36415; 82607; 82728; 82746; 83540; 83550; 85025

== ENCOUNTER 2024-06-08 08:39 | Emergency (ER) | payer MEDICARE, MEDICAID, SELFPAY ==
--- NOTE | ~2024-06-08 | CT_ITS ---
EXAMINATION: CT brain wo con DATE: 06/08/2024 09:42 INDICATION: Fall. TECHNIQUE: Computed tomography (CT) of the head was performed without intravenous contrast. The mA wa s adjusted according to patient size. Iterative reconstruction technique was employed. The dose-lengt h product was 605.33 mGy-cm. COMPARISON: Head CT 07/29/2022 FINDINGS: There are scattered areas of low attenuation in the cerebral white matter. There is an old lacunar infarct in the left basal ganglia. There is no intracranial hemorrhage, acute infarction, or abnormal intracranial mass lesion. The ventricles are normal in size. The paranasal sinuses are clear . There are likely changes of ocular lens replacement surgeries. The mastoid air cells are normal. IMPRESSION: 1. Old lacunar infarct in the left basal ganglia. 2. Stable extensive nonspecific cerebral white matter disease, which likely represents chronic small vessel ischemic disease. Reviewed, dictated and finalized at location A. WELL CABLE TOOL DRILLER IMPRESSION: 1. Old lacunar infarct in the left basal ganglia. 2. Stable extensive nonspecific cerebral white matter disease, which likely rep resents chronic small vessel ischemic disease.
--- NOTE | ~2024-06-08 | CT_ITS ---
EXAMINATION: CT thoracic spine wo con DATE: 06/08/2024 09:42 INDICATION: Fall TECHNIQUE: Computed tomography (CT) of the thoracic spine was performed without intravenous contrast. Automated exposure control and iterative reconstruction technique were employed. The dose-length pro duct was 915.78 mGy-cm. COMPARISON: MRI dated 01/30/2017 FINDINGS: Minimal thoracic dextrocurvature. Sagittal alignment is normal. Chronic L1 compression fracture with 40% anterior to central vertebral body height loss and change of prior vertebroplasty. Remaining vert ebral body heights are normal. No acute fracture. Moderate disc height loss at C6-C7. There is multil evel mild disc height loss throughout the thoracic spine. There are bridging or nearly bridging osteo phytes at multiple levels from T1-T2 through L1-L2 Consistent with diffuse idiopathic skeletal hypero stosis (DISH). There are lucent hemangiomas thickened vertical internal trabecula at T8 and T10. Ther e are few small disc protrusions or posterior endplate osteophytes contributing to minimal to mild ce ntral canal stenosis at a few levels including T2-T3 through T4-T5, T10 and T10-11 and T12-L1. There is multilevel bilateral facet osteoarthritis, moderate to severe and with right-sided predominance in the upper thoracic spine and mild to moderate in the mid to lower thoracic spine. This contributes t o scattered minimal to mild neural foraminal stenosis, greatest on the right at T3-T4. Visualized por tion of the lungs are clear. Atherosclerotic coronary artery calcifications and aortic valve calcific ation. Partially visualized postoperative change of prior coronary artery bypass grafting. Multinodul ar goiter. Paravertebral soft tissues are unremarkable. IMPRESSION: 1. Chronic L1 compression fracture with prior vertebroplasty. No acute osseous abnormality. 2. Mild thoracic spondylosis with bridging osteophytes at multiple levels consistent with diffuse idi opathic skeletal hyperostosis (DISH). 3. Multinodular goiter. Reviewed, dictated and finalized at location B. SD ANALYST IMPRESSION: 1. Chronic L1 compression fracture with prior vertebroplasty. No acute osseous abnormality. 2. Mild thoracic spondylosis with bridging osteophytes at multiple levels consi stent with diffuse idiopathic skeletal hyperostosis (DISH). 3. Multinodular goiter.
--- NOTE | ~2024-06-08 | XR_ITS ---
EXAMINATION: XR shoulder RT min 2V DATE: 06/08/2024 09:51 INDICATION: Right shoulder pain. Falls. TECHNIQUE: 4 views of right shoulder were obtained. COMPARISON: Right humerus radiographs 02/09/2023 FINDINGS: Alignment is normal. No acute fracture. There is an old healed fracture of right sixth rib. There is severe osteoarthritis of acromioclavicular joint and mild osteoarthritis of glenohumeral rk int. Median sternotomy wires and mediastinal surgical clips are seen, likely from prior coronary jalil ry bypass grafting. IMPRESSION: 1. Polyarticular osteoarthritis. Reviewed, dictated and finalized at location A. IT REPORTING CLERK
--- NOTE | ~2024-06-08 | CT_ITS ---
EXAMINATION: CT cervical spine wo con DATE: 06/08/2024 09:42 INDICATION: Neck injury. Fall. TECHNIQUE: Computed tomography (CT) of the cervical spine was performed without intravenous contrast. Automated exposure control and iterative reconstruction technique were employed. The dose-length pro duct was 366.30 mGy-cm. COMPARISON: CT cervical spine 07/29/2022 FINDINGS: There are nodules in the thyroid measuring up to 13 mm, likely clinically significant. Ther e is 3 degrees levocurvature of cervical thoracic spine. There is 2 mm anterolisthesis of C6 on C7. V ertebral body heights are normal. There is interbody fusion at C5-C6. There is mildly decreased disc height at C4-C5 and moderately decreased disc height at C6-C7. The following disc levels are specific ally discussed: C2-C3: There is mild right and severe left uncovertebral joint osteoarthritis. There is severe bilate ral facet joint osteoarthritis. There is mild left neural foraminal stenosis. There is no central can al stenosis. C3-C4: There is mild left uncovertebral joint osteoarthritis. There is severe right and moderate left facet joint osteoarthritis. There is mild left neural foraminal stenosis. There is mild central ashley l stenosis. C4-C5: There is no uncovertebral joint osteoarthritis. There is mild right and moderate left facet rk int osteoarthritis. There is no neural foraminal stenosis. There is mild central canal stenosis. C5-C6: There is mild bilateral uncovertebral joint hypertrophy. There is mild bilateral facet joint o steoarthritis. There is no neural foraminal stenosis. There is no central canal stenosis. C6-C7: There is mild bilateral uncovertebral joint osteoarthritis. There is severe bilateral facet rk int osteoarthritis. There is mild bilateral neural foraminal stenosis. There is mild central canal st enosis. C7-T1: There is no uncovertebral joint osteoarthritis. There is severe right and moderate left facet joint osteoarthritis. There is mild right neural foraminal stenosis. There is no central canal stenos is. IMPRESSION: 1. No fracture. 2. Moderate cervical spondylosis. 3. Anterior fusion at C5-C6. Reviewed, dictated and finalized at location A. WARDEN
[2024-06-08 08:46] VITALS: BP 170/48; PULSE 57; RESP 18; TEMP 36.6; O2SAT 100
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
== END 2024-06-08 10:28 | disposition home or self-care (01) ==
PROVIDERS: Emergency Provider Physician Assistant; PCP Nurse Practitioner Family
DX: S09.90XA Unspecified injury of head, initial encounter (principal); S49.91XA Unspecified injury of right shoulder and upper arm, initial encounter; M54.12 Radiculopathy, cervical region; E04.2 Nontoxic multinodular goiter; I25.10 Atherosclerotic heart disease of native coronary artery without angina pectoris; I50.9 Heart failure, unspecified; I11.0 Hypertensive heart disease with heart failure; K21.9 Gastro-esophageal reflux disease without esophagitis; Z95.5 Presence of coronary angioplasty implant and graft; Z95.1 Presence of aortocoronary bypass graft; Z96.651 Presence of right artificial knee joint; Z98.1 Arthrodesis status; Z90.710 Acquired absence of both cervix and uterus; Z90.49 Acquired absence of other specified parts of digestive tract; Z79.02 Long term (current) use of antithrombotics/antiplatelets; Z79.899 Other long term (current) drug therapy; Z79.01 Long term (current) use of anticoagulants; W18.09XA Striking against other object with subsequent fall, initial encounter; R90.82 White matter disease, unspecified; M19.011 Primary osteoarthritis, right shoulder; M47.814 Spondylosis without myelopathy or radiculopathy, thoracic region; Z98.49 Cataract extraction status, unspecified eye
CPT/HCPCS: 70450; 72125; 72128; 73030; 99283; 99284

== ENCOUNTER 2024-06-29 21:02 | Inpatient (IN) | payer MEDICARE, MEDICAID, SELFPAY ==
--- NOTE | ~2024-06-29 | CT_ITS ---
CT of the Abdomen and Pelvis: Indication: Abdominal pain Technique: 2.5 mm axial scans were obtained through the abdomen and pelvis following intravenous adm inistration of 100 cc of Omnipaque 350. Dose reduction technique was used on this scan by utilizing a utomated exposure control and iterative reconstruction technique. The dose-length product (DLP) was 7 06.16 mGy-cm. COMPARISON: 07/29/2022 Findings: Scans through the lung bases are unremarkable. The liver, spleen, pancreas, adrenals and kidneys are within normal limits. Cholecystectomy clips are present. There are atherosclerotic calcifications of the aorta. No lymphadenopathy. There is probable mild wall thickening extensively involving the distal transverse colon, and the mike cending and sigmoid colon, suggestive of infectious/inflammatory colitis. Images through the pelvis were performed. Urinary bladder unremarkable. Status post hysterectomy. No pelvic mass seen. No ascites. L2 vertebroplasty noted. Impression: Findings consistent with extensive infectious/inflammatory colitis, as detailed above. Reviewed, dictated and finalized at location . OR SOLUTIONS CONSULTANT Impression: Findings consistent with extensive infectious/inflammatory colitis, as detailed above.
--- NOTE | ~2024-06-29 | XR_ITS ---
XR chest 2V Ordering provider: Stuart Cr MD History: 78 years Female with . syncope . Comparison: None. FINDINGS: MEDIASTINUM: The cardiac silhouette is moderately enlarged. Postoperative changes in the mediastinum. LUNGS: No infiltrates, effusions or pneumothorax. OTHER: No free air under the diaphragm. Degenerative changes of the spine. Sclerotic vertebra in the lumbar area. Further evaluation advised. IMPRESSION: No acute cardiopulmonary pathology. Reviewed, dictated and finalized at location A. HER PRODUCTION
[2024-06-29 20:59] VITALS: BP 139/50; PULSE 61; RESP 16; TEMP 36.9; O2SAT 100
--- NOTE | 2024-06-29 21:07 | ECG_ITS ---
Test Date: 2024-06-29 21:10:40 Measurements Intervals [place] Rate: 70 P: 50 TX: 257 QRS: 46 QRSD: 84 T: 70 QT: 411 QTc: 445 Interpretive Statements SINUS RHYTHM WITH FIRST DEGREE AV BLOCK No previous ECG available for comparison Electronically Signed On 06-30-2024 12:29:54 WEBBING TACKER by Varsha Young M.D.
[2024-06-29 21:08] VITALS: PULSE 61
--- NOTE | 2024-06-29 21:45 | ED.DIZZY ---
HPI - Dizziness General Chief Complaint: Syncope Stated Complaint: SYNCOPE Time Seen by Provider: 06/29/24 21:37 Source: patient Mode of arrival: EMS Limitations: no limitations History of Present Illness HPI Narrative: This is a 78-year-old female with PMH of T2 dm, HLD, CAD, CHF, Crohn disease, who presents to the ED via EMS for chief complaint of syncopal episode that occurred this evening. Patient reports that she went to the toilet to have a bowel movement and started to have a ?spasm of my colon. States that she has had this issue many many years ago and but has not had a syncopal episode like this in several years. She does report that while trying to force the bowel movement she started to feel dizzy, weak and diaphoretic. She is unsure what happened after that but does remember coming to with EMS. EMS reports that the patient took around 5 minutes to come to fully. Related Data Home Medications Medication Instructions Recorded Confirmed atorvastatin 20 mg tablet 20 mg PO DAILY 09/26/19 01/29/23 dapagliflozin propanediol 10 mg 10 mg PO DAILY 09/18/20 01/29/23 tablet (Farxiga) ezetimibe 10 mg tablet 10 mg PO DAILY 09/18/20 01/29/23 icosapent ethyl 1 gram capsule 2 g PO BID 09/18/20 01/29/23 (Vascepa) pantoprazole 40 mg tablet,delayed 40 mg PO DAILY 10/03/20 01/29/23 release dicyclomine 20 mg tablet 20 mg PO QID 04/23/21 01/29/23 furosemide 40 mg tablet 40 mg PO QAM 04/23/21 01/29/23 ticagrelor 90 mg tablet (Brilinta) 90 mg PO BID 05/03/21 01/29/23 buspirone 5 mg tablet 2.5 mg PO BID 04/02/22 01/29/23 methimazole 5 mg tablet 10 mg PO DAILY 04/02/22 01/29/23 metoprolol succinate 25 mg 25 mg PO DAILY 04/02/22 01/29/23 tablet,extended release 24 hr potassium chloride 20 mEq 20 meq PO DAILY 04/02/22 01/29/23 tablet,extended release(part/cryst) (Klor-Con M) sertraline 100 mg tablet 100 mg PO HS 04/02/22 01/29/23 rivaroxaban 2.5 mg tablet (Xarelto) 2.5 mg PO DAILY 01/29/23 01/29/23 Allergies Allergy/AdvReac Type Severity Reaction Status Date / Time ranolazine Allergy Intermediate Unknown Verified 02/09/23 14:43 gabapentin Allergy Mild Confusion Verified 02/09/23 14:43 cyclobenzaprine Allergy Unknown Unknown Verified 02/09/23 14:43 fentanyl Allergy Unknown Unknown Verified 02/09/23 14:43 ciprofloxacin [From Cipro] Allergy Unknown Verified 02/09/23 14:43 doxycycline Allergy Unknown Verified 02/09/23 14:43 Penicillins Allergy Anaphylaxis Verified 02/09/23 14:43 Review of Systems Review of Systems: All systems as dictated in [facility] Past Medical History Medical History Anemia Anxiety Back contusion Back pain CAD (coronary artery disease) Cataracts, bilateral CHF (congestive heart failure) Colitis Crohn's disease Depression Depression with anxiety Diabetes mellitus DVT (deep venous thrombosis) Fibromyalgia Gastrointestinal ulcer GERD (gastroesophageal reflux disease) History of angina HLD (hyperlipidemia) HTN (hypertension) Hypothyroidism IBS (irritable bowel syndrome) Kidney stones TIA (transient ischemic attack) UTI (urinary tract infection) Surgical History Surgical History H/O cataract extraction H/O heart artery stent History of bladder surgery History of hysterectomy History of loop recorder History of right knee joint replacement Hx of appendectomy Hx of CABG Hx of cardiac catheterization Hx of cholecystectomy Hx of spinal surgery S/P peripheral artery angioplasty with stent placement Family History Family History Father Cerebrovascular accident, Onset Age: 62 Family history of coronary artery disease Family history of alcoholism Acute myocardial infarction, Onset Age: 62 Patient's father is Mother Cerebrovascular accident, Onset Age: 84 Family history of coronary artery disease Family history of diabetes mellitus in first degree relative Asthma Family history of congestive heart failure Family history of heart disease in male family member before age 55 Diabetes mellitus, Onset Age: 84 Family history of gastrointestinal disorder, Onset Age: 84 Family history of cardiovascular disease, Onset Age: 84 Patient's mother is Sibling Family history of thyroid disease Diabetes mellitus Carcinoma of colon Patient's sister is Other Family history of kidney disease Hypertension Social History Social History Social History: Lives at home with her , grandson. Lifelong nonsmoker. Denies alcohol or drug use. Full code. 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 Lifelong nonsmoker. Does not use any alcohol marijuana or illicit drugs. Her oldest daughter Eli is a durable power family law attorney for healthcare Code status full code Smoking status: Never smoker Alcohol intake: never Substance use: never Substance use type: does not use Lack of Transportation: No Lack of Food: Never True Current Housing: I Have Housing Concerned About Future Housing: No Difficulty Paying Gas/Electric Bills: No Difficulty Paying for Meds: No Currently Unemployed: No Education: Don't Know Difficulty w/ Childcare or Family Care: No Gender identity (if verbalized by the patient): Female Sexual Orientation (if Verbalized by the Patient): Straight or Heterosexual Spiritual care concerns: No Exam Narrative: GENERAL: Well-appearing, well-nourished, and in no acute distress. HEAD: Normocephalic, atraumatic. EYES: PERRLA and EOMI. ENT: Nares clear, no rhinorrhea or epistaxis. Mucous membranes moist. Oropharynx without tonsillar hypertrophy exudate or other lesions. NECK: Supple. No adenopathy or masses. CHEST: No respiratory distress. Clear to auscultation. No wheezes rales or rhonchi HEART: Regular rate and rhythm. No murmur heard. Normal peripheral pulses. ABDOMEN: Soft, nontender, nondistended, normal active bowel sounds. MSK: Normal range of motion. No edema. SKIN: Warm, dry, no rash. NEURO: Alert and oriented x4. No focal deficits. PSYCH: Normal mood and affect. Course Reevaluation(s) Reevaluation #1: Patient is feeling better overall from the syncope standpoint, however now she started to have more abdominal cramping. Date: 06/29/24 Time: 23:39 Vital Signs Vital signs: Vital Signs Temperature 98.5 F 06/29/24 20:59 Pulse Rate 61 06/29/24 20:59 Respiratory Rate 16 06/29/24 20:59 Blood Pressure 139/50 L 06/29/24 20:59 Pulse Oximetry 100 06/29/24 20:59 Temperature 98.5 F 06/29/24 20:59 Pulse Rate 66 06/30/24 03:25 Respiratory Rate 18 06/30/24 03:25 Blood Pressure 141/54 H 06/30/24 03:25 Pulse Oximetry 100 06/30/24 03:25 MDM - Dizziness MDM Narrative Medical decision making narrative: This is a 70-year-old female who presents to the ED for chief complaint of syncopal episode while having a bowel movement tonight.. Vitals are normal. Exam is benign overall. Fully neurologically intact. Lab work is unremarkable. Chest x-ray shows no acute findings. On re-evaluation patient was starting to have a little bit more abdominal pain and cramping. She is tender in the suprapubic abdomen. CT abdomen pelvis with IV contrast: IMPRESSION: ?There is marked thickening of the wall of the near entirety of the colon. This most likely represents ulcerative colitis, C diff so to be included on the differential. The solid organs are within normal limits. Cholecystectomy. No bowel obstruction. No fracture. Presentation is consistent with pancolitis. Rocephin and Flagyl started in the ED. Spoke with hospitalist who will admit patient to the [facility] telemetry floor. Lab Data 06/29/24 22:32 06/29/24 22:32 Labs: Lab Results 06/29/24 Range/Units 22:32 WBC 7.1 (4.5-10.0) K/mm3 RBC 4.70 (4.2-5.4) M/mm3 Hgb 11.7 L (12.0-15.0) g/dL Hct 38.2 (37.0-47.0) % MCV 81.3 (80-100) fl MCH 24.9 L (26-34) pg MCHC 30.6 L (32-36) g/dl RDW 16.7 H (11.5-14.5) % Plt Count 296 (150-375) k/mm3 MPV 8.9 (7.4-10.4) fl Immature Gran % (Auto) 0.4 (0-0.5) % Neut % (Auto) 76.0 H (45.5-73.1) % Lymph % (Auto) 17.6 L (18.3-44.2) % Finney % (Auto) 4.3 (2.6-8.5) % Eos % (Auto) 1.3 (0-4.4) % Baso % (Auto) 0.4 (0.2-1.2) % Lymph # (Auto) 1.26 (0.9-3.2) K/mm3 Finney # (Auto) 0.3 (0.1-0.6) K/mm3 Eos # (Auto) 0.1 (0-0.3) K/mm3 Baso # (Auto) 0.0 (0.0-0.1) K/mm3 Abs Immat Gran (auto) 0.03 (0.00-0.031) K/mm3 Absolute Neuts (auto) 5.4 (1.3-6.7) K/mm3 Absolute Nucleated RBC 0.000 (0.0-0.012) K/mm3 Nucleated RBC % 0.0 (0.0-0.2) % Sodium 141 (137-145) mmol/L Potassium 4.1 (3.4-5.0) mmol/L Chloride 107 (98-107) mmol/L Carbon Dioxide 26 (22-30) mmol/L Anion Gap 8 (4-12) mmol/L BUN 23 H (7-17) mg/dL Creatinine 1.20 H (0.7-1.0) mg/dL Estim Creat Clear Calc 34 ml/min Estimated GFR 43 L (59 - ) Glucose 196 H (65-110) mg/dL Calcium 9.6 (8.4-10.2) mg/dL Total Bilirubin 0.5 (0.2-1.3) mg/dL AST 41 H (14-36) U/L ALT 20 (6-35) U/L Alkaline Phosphatase 107 (38-126) U/L Total Protein 8.0 (6.3-8.2) g/dL Albumin 4.6 (3.5-5.1) g/dL Discharge Plan Discharge Clinical Impression: Pancolitis Patient Disposition: Still a Patient Condition: Stable Prescriptions: No Action Brilinta 90 mg tablet 90 mg PO BID buspirone 5 mg tablet 2.5 mg PO BID sertraline 100 mg tablet 100 mg PO HS potassium chloride [Klor-Con M20] 20 mEq tablet,ER particles/crystals 20 meq PO DAILY methimazole 5 mg tablet 10 mg PO DAILY metoprolol succinate 25 mg tablet extended release 24 hr 25 mg PO DAILY Xarelto 2.5 mg tablet 2.5 mg PO DAILY tramadol 50 mg tablet 50 mg PO BID 3 Days Qty: 6 0RF dicyclomine 20 mg tablet 20 mg PO QID furosemide 40 mg tablet 40 mg PO QAM (DME) Comfort EZ Pen [place] 33 gauge x 5/16 needle See Rx Instructions .ROUTE .MEDSUPPLY Qty: 400 3RF Rx Instructions: four times daily atorvastatin 20 mg tablet 20 mg PO DAILY ezetimibe 10 mg tablet 10 mg PO DAILY icosapent ethyl [Vascepa] 1 gram capsule 2 g PO BID Farxiga 10 mg tablet 10 mg PO DAILY pantoprazole 40 mg tablet,delayed release (DR/EC) 40 mg PO DAILY alprazolam 0.5 mg tablet 0.5 mg PO BID PRN (Reason: anxiety) Qty: 60 1RF Follow-up/Referrals: Ashlie,DIAN Bryant [Primary Care Provider] -
[2024-06-29 22:00] VITALS: BP 154/76; PULSE 72; RESP 12; O2SAT 100
[2024-06-29 22:39] LABS: Basophils Percent Auto 0.4 % (0.2-1.2); Eosinophils Absolute Auto 0.1 K/mm3 (0-0.3); Eosinophils Percent Auto 1.3 % (0-4.4); Hematocrit 38.2 % (37.0-47.0); Hemoglobin 11.7 g/dL (12.0-15.0); Immature Granulocyte Absolute 0.03 K/mm3 (0.00-0.031); Immature Granulocyte Percent A 0.4 % (0-0.5); Lymphocytes Absolute Auto 1.26 K/mm3 (0.9-3.2); Lymphocytes Percent Auto 17.6 % (18.3-44.2); Mean Corpuscular HGB Conc 30.6 g/dl (32-36); Mean Corpuscular Hemoglobin 24.9 pg (26-34); Mean Corpuscular Volume 81.3 fl (80-100); Mean Platelet Volume 8.9 fl (7.4-10.4); Monocytes Absolute Auto 0.3 K/mm3 (0.1-0.6); Monocytes Percent Auto 4.3 % (2.6-8.5); Neutrophils Absolute Auto 5.4 K/mm3 (1.3-6.7); Platelet Count Result 296 k/mm3 (150-375); Red Cell Distribution Width 16.7 % (11.5-14.5); White Blood Count 7.1 K/mm3 (4.5-10.0)
[2024-06-29 22:50] LABS: Alanine Aminotransferase 20 U/L (6-35); Albumin Level 4.6 g/dL (3.5-5.1); Alkaline Phosphatase 107 U/L (38-126); Anion Gap 8 mmol/L (4-12); Aspartate Amino Transferase 41 U/L (14-36); Bilirubin,Total 0.5 mg/dL (0.2-1.3); Blood Urea Nitrogen 23 mg/dL (7-17); Calcium 9.6 mg/dL (8.4-10.2); Carbon Dioxide 26 mmol/L (22-30); Chloride 107 mmol/L (98-107); Estimated CRCL calculation 34 ml/min; Estimated Glomerular Filt Rate 43; Glucose 196 mg/dL (65-110); Potassium 4.1 mmol/L (3.4-5.0); Sodium 141 mmol/L (137-145)
[2024-06-29 22:52] VITALS: BP 144/71; PULSE 60; RESP 12; O2SAT 100
[2024-06-30] VITALS (9 sets, daily range): BP systolic 126–158; BP diastolic 50–82; PULSE 62–78; RESP 16–20; TEMP 36.4–37; O2SAT 99–100
--- NOTE | 2024-06-30 | ECHO_ITS ---
Patient Info Name: Osvaldo Rawls Age: 78 years : 1945 Gender: Female Ht: 62 in Wt: 177 lbs BSA: 1.91 m2 HR: 63 bpm BP: 158 / 58 mmHg Technical Quality: Poor Exam Date: 06/30/2024 3:15 PM Exam Location: Echo Lab Patient Status: Inpatient Admit Date: 06/30/2024 Staff Ordering Physician: Baldo Lopez MD Surgical Garment Inspector: Delvis Oviedo RDCS Attending Provider: Iwona Mcgill DO Exam Type: CA echo dop color flow w con Study Info Indications - syncope Complete two-dimensional, color flow and Doppler transthoracic echocardiogram is performed with contrast to opacify the left ventricle and to improve the deliniation of the left ventricle endocardial borders. Contrast/Agitated Saline Contrast/Ag. Saline: Definity Amount: 2.00 ml Existing IV Access: Yes Reason for Poor Study: poor echocardiographic windows Summary 1. Left ventricular chamber dimension is normal. 2. Left ventricular systolic function is normal, estimated at 65-70%. 3. There is mildly increased left ventricular wall thickness. 4. The left ventricular diastolic function is grade I diastolic dysfunction. 5. Right ventricular chamber dimension is normal. 6. Right ventricular systolic function is normal. 7. There is mild to moderate aortic valve regurgitation. 8. There is moderate aortic valve stenosis. 9. There is mild mitral valve regurgitation. 10. Moderate mitral annular calcification. 11. There is mild mitral valve stenosis. Left Ventricle Left ventricular chamber dimension is normal. Left ventricular systolic function is normal, estimated at 65-70%. There is mildly increased left ventricular wall thickness. Left ventricular septal wall motion is normal. The left ventricular diastolic function is grade I diastolic dysfunction. Right Ventricle Right ventricular chamber dimension is normal. Right ventricular systolic function is normal. Left Atria Left atrial chamber dimension is mildly enlarged. Right Atria Right atrial chamber dimension is normal. Aortic Valve There is no aortic valve sclerosis. There is moderate aortic valve stenosis. There is mild to moderate aortic valve regurgitation. Pulmonic Valve The pulmonic valve is not well visualized. Mitral Valve There is mild mitral valve stenosis. There is mild mitral valve regurgitation. Moderate mitral annular calcification. Tricuspid Valve The tricuspid valve leaflets are normal. There is no significant tricuspid valve stenosis. There is no tricuspid valve regurgitation. Pericardium/Pleural The pericardium appears normal. There is no pericardial effusion. Inferior Vena Cava Normal inferior vena cava with >50% collapse upon inspiration consistent with normal right atrial pressure, 5 mmHg. Aorta The aortic root size at the sinus of Valsalva is normal. The prox ascending aorta size is normal. Left Ventricular Outflow Tract Name Value Normal LVOT 2D LVOT Diameter 2.04 cm LVOT Doppler LVOT Peak Gradient 4 mmHg LVOT Mean Gradient 2 mmHg LVOT VTI 26.72 cm LVOT VTI/AV VTI Ratio 0.31 LVOT Stroke Volume 87.10 ml LVOT CO 4.90 l/min LVOT CI 2.57 L/min/m2 Pulmonic Valve Name Value Normal RVOT Doppler RVOT Peak Gradient 6 mmHg PV Doppler PV Peak Gradient 7 mmHg Mitral Valve Name Value Normal MV Doppler MV Peak Gradient 14 mmHg MV Mean Gradient 7 mmHg MV Decel Stewart 324.02 cm/s2 MV PHT 0 s MV Area (PHT) 2.87 cm2 4.00-5.00 MV Area (Cont Eq VTI) 1.40 cm2 MV Diastolic Function MV E Peak Velocity 85.66 cm/s MV A Peak Velocity 165.48 cm/s MV E/A 0.52 MV Decel Time 0 s MV Annular TDI MV E/e' (Septal) 16.36 <=8.00 MV E/e' (Lateral) 10.55 <=8.00 MV E/e' (Average) 13.46 Tricuspid Valve Name Value Normal Estimated PAP/RSVP RA Pressure 5 mmHg <=5 Aorta Name Value Normal Ascending Aorta Ao Root Diameter (MM) 3.08 cm Ao Root Diam Index (MM) 1.62 cm/m2 Aortic Valve Name Value Normal AV Doppler AV Peak Velocity 331.34 cm/s AV Peak Gradient 44 mmHg AV Mean Gradient 28 mmHg AV VTI 86.98 cm AV Area (Cont Eq VTI) 1.00 cm2 >=3.00 AV Area (Cont Eq Jabari) 0.95 cm2 AV Regurgitation 2D LVOT Area 3.26 cm2 AV Regurgitation Doppler AR Decel Time 1 s AR Decel Stewart 396.45 cm/s2 AR PHT 0 s Ventricles Name Value Normal LV Dimensions 2D/MM IVS Diastolic Thickness (2D) 1.48 cm 0.60-1.00 LVID Diastole (2D) 4.75 cm 3.80-5.20 LVIW Diastolic Thickness (2D) 1.69 cm 0.60-0.90 LVID Systole (2D) 3.00 cm 2.20-3.50 LVOT Diameter 2.04 cm LV Mass (2D Cubed) 325.51 g 67.00-162.00 LV Mass Index (2D Cubed) 0.02 g/cm2 0.00-0.01 Relative Wall Thickness (2D) 0.71 LV Fractional Shortening/Ejection Fraction 2D/MM LV Fractional Shortening (2D) 40 % 27-45 LV EF (2D Teicholz) 70 % 54-74 LV Diastolic Volume (4C MOD) 90.56 ml LV EF (4C MOD) 69 % LV Diastolic Volume (2C MOD) 86.68 ml LV EF (2C MOD) 70 % LV Diastolic Volume (BP MOD) 89.39 ml 46.00-106.00 LV Diastolic Volume Index (BP MOD) 0.05 l/m2 0.03-0.06 LV Systolic Volume (BP MOD) 27.67 ml 14.00-42.00 LV Systolic Volume Index (BP MOD) 0.01 l/m2 0.01-0.02 LV EF (BP MOD) 69 % 54-74 LV Diastolic Length (4C) 8.63 cm LV Systolic Length (4C) 7.25 cm LV Stroke Volume (4C MOD) 62.63 ml Atria Name Value Normal LA Dimensions LA Dimension (MM) 4.64 cm 2.70-3.80 LA Volume (4C A-L) 82.83 ml LA Volume (BP A-L) 73.29 ml RA Dimensions RA Area (4C) 13.06 cm2 <=18.00 Report Signatures
[2024-06-30] MEDS: SODIUM CHLORIDE 0.9% IV 500 ML 999 ML IV CONT (00:24)
[2024-06-30] MEDS: ONDANSETRON INJ 4 MG/2 ML VIAL IV PUSH (00:24)
[2024-06-30] MEDS: HYDROmorphone HCL INJ (*CRX) 1 MG/ML SYR 0.5 MG IV PUSH (00:24)
[2024-06-30] MEDS: metroNIDAZOLE 500 MG/ISO 100ML 500 MG/100 ML BAG 100 MG IVPB ×3 (04:12→20:01)
--- NOTE | 2024-06-30 05:45 | ADMGEN ---
This patient, Osvaldo Rawls, was admitted to [facility] Surg Room 307-02. Patient/family oriented to hospital policies and general routines including ID bracelet, bed and alarms, visiting hours, pain management, procedures, bathroom and other care routines, personal items, smoking policy, room service/diet, and visiting hours. Information on how to activate the Rapid Response Team has been discussed. Patient/Family are encouraged to report perceived risks to care and to ask questions if they do not understand what they are told or what they should do.
[2024-06-30] MEDS: SODIUM CHLORIDE 0.9% IV 1,000 ML 75 ML IV CONT (06:13)
--- NOTE | 2024-06-30 08:07 | PM.IMHP ---
H&P: HPI History of Present Illness Date/Time: 06/30/24 08:07 Chief Complaint: Syncope Narrative: 78-year-old female with PMH of history of RODERICK, hyperlipidemia, hypothyroidism, CAD, GERD, CHF, hypertension , Crohn disease, who presents to the ED via EMS for chief complaint of syncopal episode that occurred this evening. Patient reports that she went to the toilet to have a bowel movement and started to have a ?spasm of my colon. States that she has had this issue many many years ago and but has not had a syncopal episode like this in several years. She does report that while trying to force the bowel movement she started to feel dizzy, weak and diaphoretic. She is unsure what happened after that but does remember coming to with EMS. Pertinent labs: WBC 7.1, hemoglobin 11.7, sodium 141, potassium 4.1, creatinine 1.2, GFR 43, CT abdomen pelvis:Findings consistent with extensive infectious/inflammatory colitis. CXR: No significant abnormality. Patient reports yesterday will using restroom she had abdominal cramps and passed out. Patient reports this was not the 1st time she had previous experience of the same incidents. Patient has a extensive cardiac history and peripheral artery disease. Patient reports having several stents in the heart possibly 10 and stents in the both lower extremity. Patient also having valvular issues. Patient is taking aspirin, clopidogrel and Brilinta. Review of Systems Review of Systems: All systems as dictated in HPI [facility] Past Medical History Medical History Anemia Anxiety Back contusion Back pain CAD (coronary artery disease) Cataracts, bilateral CHF (congestive heart failure) Colitis Crohn's disease Depression Depression with anxiety Diabetes mellitus DVT (deep venous thrombosis) Fibromyalgia Gastrointestinal ulcer GERD (gastroesophageal reflux disease) History of angina HLD (hyperlipidemia) HTN (hypertension) Hypothyroidism IBS (irritable bowel syndrome) Kidney stones TIA (transient ischemic attack) UTI (urinary tract infection) Surgical History Surgical History H/O cataract extraction H/O heart artery stent History of bladder surgery History of hysterectomy History of loop recorder History of right knee joint replacement Hx of appendectomy Hx of CABG Hx of cardiac catheterization Hx of cholecystectomy Hx of spinal surgery S/P peripheral artery angioplasty with stent placement Family History Family History Father Cerebrovascular accident, Onset Age: 62 Family history of coronary artery disease Family history of alcoholism Acute myocardial infarction, Onset Age: 62 Patient's father is Mother Cerebrovascular accident, Onset Age: 84 Family history of coronary artery disease Family history of diabetes mellitus in first degree relative Asthma Family history of congestive heart failure Family history of heart disease in male family member before age 55 Diabetes mellitus, Onset Age: 84 Family history of gastrointestinal disorder, Onset Age: 84 Family history of cardiovascular disease, Onset Age: 84 Patient's mother is Sibling Family history of thyroid disease Diabetes mellitus Carcinoma of colon Patient's sister is Other Family history of kidney disease Hypertension Social History Social History Social History: Lives at home with her , grandson. Lifelong nonsmoker. Denies alcohol or drug use. Full code. 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 Lifelong nonsmoker. Does not use any alcohol marijuana or illicit drugs. Her oldest daughter Eli is a durable power senior trial attorney for healthcare Code status full code Smoking status: Never smoker Second hand tobacco smoke exposure: No Alcohol intake: never Substance use: never Substance use type: does not use Do You Feel Safe in your Home?: Yes Lack of Transportation: No Lack of Food: Never True Current Housing: I Have Housing Concerned About Future Housing: No Difficulty Paying Gas/Electric Bills: No Difficulty Paying for Meds: No Currently Unemployed: No Education: Don't Know Difficulty w/ Childcare or Family Care: No Gender identity (if verbalized by the patient): Female Sexual Orientation (if Verbalized by the Patient): Straight or Heterosexual Spiritual care concerns: No Meds Home Medications and Allergies Home Medications Medication Instructions Recorded Confirmed Type atorvastatin 20 mg tablet 20 mg PO HS 09/26/19 06/30/24 History dapagliflozin propanediol 10 mg 10 mg PO DAILY 09/18/20 06/30/24 History tablet (Farxiga) ezetimibe 10 mg tablet 10 mg PO DAILY 09/18/20 06/30/24 History icosapent ethyl 1 gram capsule 2 g PO BID 09/18/20 06/30/24 History (Vascepa) pantoprazole 40 mg tablet,delayed 40 mg PO DAILY 10/03/20 06/30/24 History release dicyclomine 20 mg tablet 20 mg PO QID 04/23/21 06/30/24 History furosemide 40 mg tablet 40 mg PO QAM 04/23/21 06/30/24 History pen needle, diabetic 33 gauge x #400 ea 04/23/21 06/30/24 Rx 5/16 (Comfort EZ Pen [place]) ticagrelor 90 mg tablet (Brilinta) 90 mg PO BID 05/03/21 06/30/24 History buspirone 5 mg tablet 2.5 mg PO BID 04/02/22 06/30/24 History methimazole 5 mg tablet 10 mg PO DAILY 04/02/22 06/30/24 History metoprolol succinate 25 mg 25 mg PO DAILY 04/02/22 06/30/24 History tablet,extended release 24 hr potassium chloride 20 mEq 20 meq PO DAILY 04/02/22 06/30/24 History tablet,extended release(part/cryst) (Klor-Con M) sertraline 100 mg tablet 100 mg PO HS 04/02/22 06/30/24 History rivaroxaban 2.5 mg tablet (Xarelto) 2.5 mg PO BID 01/29/23 06/30/24 History alprazolam 0.5 mg tablet 0.5 mg PO DAILY PRN anxiety 06/30/24 06/30/24 History clopidogrel 75 mg tablet 75 mg PO DAILY 06/30/24 06/30/24 History furosemide 20 mg tablet 20 mg PO HS 06/30/24 06/30/24 History Allergies Allergy/AdvReac Type Severity Reaction Status Date / Time ranolazine Allergy Intermediate Unknown Verified 06/30/24 06:43 gabapentin Allergy Mild Confusion Verified 06/30/24 06:43 cyclobenzaprine Allergy Unknown Unknown Verified 06/30/24 06:43 fentanyl Allergy Unknown Unknown Verified 06/30/24 06:43 ciprofloxacin [From Cipro] Allergy Unknown Verified 06/30/24 06:43 doxycycline Allergy Unknown Verified 06/30/24 06:43 Penicillins Allergy Anaphylaxis Verified 06/30/24 06:43 Vital Signs Vital Signs - 24 hr 06/29/24 20:59 06/29/24 21:08 06/29/24 22:52 Temperature 98.5 F Pulse Rate 61 61 60 Respiratory Rate 16 12 Blood Pressure 139/50 L 144/71 H Pulse Oximetry 100 100 06/29/24 22:00 06/30/24 03:25 06/30/24 05:49 Temperature 97.5 F L Pulse Rate 72 66 75 Respiratory Rate 12 18 16 Blood Pressure 154/76 H 141/54 H 126/82 Pulse Oximetry 100 100 100 Exam Narrative: GENERAL: Well-appearing, well-nourished, and in no acute distress. HEAD: Normocephalic, atraumatic. EYES: PERRLA and EOMI. ENT: Nares clear, no rhinorrhea or epistaxis. Mucous membranes moist. Oropharynx without tonsillar hypertrophy exudate or other lesions. NECK: Supple. No adenopathy or masses. CHEST: No respiratory distress. Clear to auscultation. No wheezes rales or rhonchi HEART: Regular rate and rhythm. No murmur heard. Normal peripheral pulses. ABDOMEN: Soft, nontender, nondistended, normal active bowel sounds. MSK: Normal range of motion. No edema. SKIN: Warm, dry, no rash. NEURO: Alert and oriented x4. No focal deficits. PSYCH: Normal mood and affect. H&P: Results Labs Labs: Short CBC 06/29/24 Range/Units 22:32 WBC 7.1 (4.5-10.0) K/mm3 Hgb 11.7 L (12.0-15.0) g/dL Hct 38.2 (37.0-47.0) % Plt Count 296 (150-375) k/mm3 [facility] 06/29/24 22:32 Sodium 141 Potassium 4.1 Chloride 107 Carbon Dioxide 26 BUN 23 H Creatinine 1.20 H Glucose 196 H Calcium 9.6 Liver Function 06/29/24 Range/Units 22:32 Total Bilirubin 0.5 (0.2-1.3) mg/dL AST 41 H (14-36) U/L ALT 20 (6-35) U/L Alkaline Phosphatase 107 (38-126) U/L Albumin 4.6 (3.5-5.1) g/dL Assessment and Plan Assessment and plan (1) Pancolitis: Code(s): K51.00 - Ulcerative (chronic) pancolitis without complications Status: Acute (2) Moderate aortic stenosis: Code(s): I35.0 - Nonrheumatic aortic (valve) stenosis Status: Acute (3) Syncope: Code(s): R55 - Syncope and collapse Status: Acute Plan Syncope possibly secondary to dehydration, infectious, aortic stenosis #Colitis Past medical history of Crohn's disease Started metronidazole and rifaximin No evidence of diarrhea #CAD/PAD Multiple stents in her heart and bilateral lower extremity Echo ordered Patient is on aspirin, Plavix, Brilinta # hyperthyroidism Continue methimazole 10 mg p.o. q.d. # diabetes type 2 Hold home medication On sliding scale # hypokalemia Continuing home Potassium chloride 20 meq Hospitalist MIPS Advance Care Plan I have confirmed that the patient's Advanced Care Plan is present, code status is documented, or surrogate decision maker is listed in patient medical record.: Yes Medication Reconciliation I have utilized all available resources to obtain, update and review the patients current medications (includes all prescriptions, OTC, herbals, cannabis, and nutritional supplements).: Yes
[2024-06-30 08:27] LABS: Glucose Point of Care 110 mg/dl (65-105)
[2024-06-30] MEDS: METOPROLOL SUCCINATE EXT REL 25 MG TABCR PO (09:22)
[2024-06-30] MEDS: rifAXIMin 550 MG TABLET PO ×2 (09:22→20:01)
[2024-06-30] MEDS: busPIRone HCL 2.5 MG TABLET PO ×2 (09:22→16:48)
[2024-06-30] MEDS: methiMAzole 10 MG TAB PO (09:23)
[2024-06-30] MEDS: DICYCLOMINE HCL 10 MG CAPSULE 20 MG PO ×4 (09:23→20:01)
[2024-06-30] MEDS: TICAGRELOR 90 MG TABLET PO ×2 (09:23→16:48)
[2024-06-30] MEDS: CLOPIDOGREL BISULFATE 75 MG TABLET PO (09:23)
[2024-06-30 11:36] LABS: Glucose Point of Care 146 mg/dl (65-105)
[2024-06-30] MEDS: PERFLUTREN LIPID MICROSPHERES 1.5 ML VIAL DILUTED TO 10 ML TOTAL VOLUME IV PUSH (16:05)
--- NOTE | 2024-06-30 16:21 | IVDEFINITY ---
Prior to administration of IV Definity the patient was educated on the risks and benefits of the imaging enhancing agent including potential adverse side effects. The patient verbalized understanding. Allergies were verified. No exclusion criteria were identified and at least one of the following inclusion criteria were met: 1) physician request, 2) patient technically difficult to image (per the [place] [employer]ocardi[employer] guidelines of two or more segments not discernable within the apical view), or 3) questionable left ventricular function. ?
[2024-06-30 16:35] LABS: Glucose Point of Care 126 mg/dl (65-105)
[2024-06-30] MEDS: SERTRALINE HCL 50 MG TABLET 100 MG PO (20:01)
[2024-06-30] MEDS: ATORVASTATIN 20 MG TABLET PO (20:02)
[2024-06-30 20:58] LABS: Glucose Point of Care 161 mg/dl (65-105)
[2024-07-01] VITALS (8 sets, daily range): BP systolic 142–158; BP diastolic 52–60; PULSE 61–92; RESP 16; TEMP 36.6–36.9; O2SAT 97–99
[2024-07-01] MEDS: metroNIDAZOLE 500 MG/ISO 100ML 500 MG/100 ML BAG 100 MG IVPB ×3 (03:09→20:56)
[2024-07-01 07:05] LABS: Hematocrit 32.1 % (37.0-47.0); Hemoglobin 9.9 g/dL (12.0-15.0); Mean Corpuscular HGB Conc 30.8 g/dl (32-36); Mean Corpuscular Hemoglobin 25.3 pg (26-34); Mean Corpuscular Volume 81.9 fl (80-100); Mean Platelet Volume 9.3 fl (7.4-10.4); Platelet Count Result 248 k/mm3 (150-375); Red Blood Count 3.92 M/mm3 (4.2-5.4); Red Cell Distribution Width 16.8 % (11.5-14.5); White Blood Count 5.9 K/mm3 (4.5-10.0)
[2024-07-01 07:20] LABS: Alanine Aminotransferase 13 U/L (6-35); Albumin Level 3.1 g/dL (3.5-5.1); Alkaline Phosphatase 70 U/L (38-126); Anion Gap 3 mmol/L (4-12); Aspartate Amino Transferase 26 U/L (14-36); Bilirubin,Total 0.4 mg/dL (0.2-1.3); Blood Urea Nitrogen 11 mg/dL (7-17); Calcium 8.7 mg/dL (8.4-10.2); Carbon Dioxide 22 mmol/L (22-30); Chloride 112 mmol/L (98-107); Estimated CRCL calculation 44 ml/min; Estimated Glomerular Filt Rate > 60; Glucose 96 mg/dL (65-110); Potassium 3.5 mmol/L (3.4-5.0); Sodium 137 mmol/L (137-145)
[2024-07-01 07:30] LABS: Glucose Point of Care 105 mg/dl (65-105)
[2024-07-01] MEDS: DICYCLOMINE HCL 10 MG CAPSULE 20 MG PO ×4 (08:31→20:54)
[2024-07-01] MEDS: TICAGRELOR 90 MG TABLET PO (08:32)
[2024-07-01] MEDS: busPIRone HCL 2.5 MG TABLET PO ×2 (08:32→16:56)
[2024-07-01] MEDS: methiMAzole 10 MG TAB PO (08:32)
[2024-07-01] MEDS: METOPROLOL SUCCINATE EXT REL 25 MG TABCR PO (08:32)
[2024-07-01] MEDS: CLOPIDOGREL BISULFATE 75 MG TABLET PO (08:32)
[2024-07-01] MEDS: cefTRIAXone 2 GM/NS 100 ML 2 GM/100 ML BAG IVPB (08:34)
[2024-07-01] MEDS: amLODIPine BESYLATE 5 MG TABLET PO (08:34)
--- NOTE | 2024-07-01 08:55 | PM.IMPN ---
Progress Note: A&P Assessment and Plan (1) Pancolitis: Code(s): K51.00 - Ulcerative (chronic) pancolitis without complications Status: Acute (2) Moderate aortic stenosis: Code(s): I35.0 - Nonrheumatic aortic (valve) stenosis Status: Acute (3) Syncope: Code(s): R55 - Syncope and collapse Status: Acute Plan Syncope possibly secondary to dehydration, infectious, aortic stenosis #Colitis Past medical history of Crohn's disease Started metronidazole and rifaximin No evidence of diarrhea # anemia Hemoglobin dropped from 11.7 to 9.9 Patient takes clopidogrel, d/c Brilinta Home medication Rivaroxaban 2.5 mg p.o. b.i.d. cont Possible dilutional anemia Ordered FOBT Anemia panel including LDH haptoglobin vitamin B12 and folate #CAD/PAD Multiple stents in her heart and bilateral lower extremity Echo ordered Patient is on aspirin, Plavix, Brilinta # hyperthyroidism Continue methimazole 10 mg p.o. q.d. # diabetes type 2 Hold home medication On sliding scale # hypokalemia Continuing home Potassium chloride 20 meq Subjective Date/time seen: 07/01/24 08:55 Interval history: Patient received the dose of ceftriaxone in ED and no evidence of any allergic reaction. They stop the rifaximin and started ceftriaxone along with metronidazole. As mentioned HPI patient has extensive heart disease with multiple stents and stents in both lower extremities as well. Patient hemoglobin has been dropped from 11.7 to 9.9. Clarified with patient about taking clopidogrel ,Xarelto and Brilinta. Patient reports she was confused yesterday and was not able to verify.Yesterday we held Xarelto 2.5 mg PO BID which I believe taking it as preventive dosage for CAD/PAD. Today she says she is positive that she takes only Plavix and Xarelto 2.5 mg PO BID. Echocardiogram is pending. Patient have episodes of hypertension. Started amlodipine 5 mg and lisinopril 10 mg p.o. q.d.. Review of Systems Review of Systems: All systems as dictated in HPI Exam Narrative: GENERAL: Well-appearing, well-nourished, and in no acute distress. HEAD: Normocephalic, atraumatic. EYES: PERRLA and EOMI. ENT: Nares clear, no rhinorrhea or epistaxis. Mucous membranes moist. Oropharynx without tonsillar hypertrophy exudate or other lesions. NECK: Supple. No adenopathy or masses. CHEST: No respiratory distress. Clear to auscultation. No wheezes rales or rhonchi HEART: Regular rate and rhythm. No murmur heard. Normal peripheral pulses. ABDOMEN: Soft, nontender, nondistended, normal active bowel sounds. MSK: Normal range of motion. No edema. SKIN: Warm, dry, no rash. NEURO: Alert and oriented x4. No focal deficits. PSYCH: Normal mood and affect. Objective Data Vital Signs Vital Signs: Vital Signs - 24 hr 06/30/24 09:22 06/30/24 14:00 06/30/24 12:00 Temperature 97.8 F Pulse Rate 78 63 66 Respiratory Rate 16 Blood Pressure 158/58 H Pulse Oximetry 100 Oxygen Delivery 06/30/24 17:43 06/30/24 20:00 06/30/24 20:00 Temperature Pulse Rate 71 64 Respiratory Rate Blood Pressure Pulse Oximetry Oxygen Delivery Room Air 06/30/24 20:50 07/01/24 00:00 07/01/24 04:00 Temperature 98.6 F Pulse Rate 62 66 63 Respiratory Rate 20 Blood Pressure 154/50 H Pulse Oximetry 99 Oxygen Delivery 07/01/24 05:35 07/01/24 08:32 Temperature 98.4 F Pulse Rate 67 92 Respiratory Rate 16 Blood Pressure 158/53 H Pulse Oximetry 98 Oxygen Delivery Intake/Output Intake/Output: Intake & Output 06/28/24 06/29/24 06/30/24 07/01/24 23:59 23:59 23:59 23:59 Intake Total 968 368 Output Total 950 1250 Balance 18 -882 Meds/Results Medications: Active Medications Generic Name Dose Route Start Last Admin Trade Name Freq PRN Reason Stop Dose Admin Alprazolam 0.5 mg 06/30/24 08:13 Alprazolam (*Crx) 0.5 Mg Tablet PO DAILY PRN anxiety Amlodipine Besylate 5 mg 07/01/24 09:00 07/01/24 08:34 Amlodipine Besylate 5 Mg Tablet PO 5 mg DAILY YAHIR Administration Atorvastatin Calcium 20 mg 06/30/24 21:00 06/30/24 20:02 Atorvastatin 20 Mg Tablet PO 20 mg HS YAHIR Administration Buspirone HCl 2.5 mg 06/30/24 09:00 07/01/24 08:32 Buspirone Hcl 2.5 Mg Tablet PO 2.5 mg BID YAHIR Administration Clopidogrel Bisulfate 75 mg 06/30/24 09:00 07/01/24 08:32 Clopidogrel Bisulfate 75 Mg Tablet PO 75 mg DAILY YAHIR Administration Dextrose 12.5 gm 06/30/24 11:34 Dextrose 50% 25 Gm/50 Ml Syringe IV PUSH PRN PRN Hypoglycemia Protocol Dicyclomine HCl 20 mg 06/30/24 09:00 07/01/24 08:31 Dicyclomine Hcl 10 Mg Capsule PO 20 mg QID YAHIR Administration Glucose 15 gm 06/30/24 11:34 Glucose Oral Gel 15 Gm Of Glucse In 37.5 Gm Tube PO PRN PRN Hypoglycemia Protocol Hydromorphone HCl 0.5 mg 06/30/24 04:14 Hydromorphone Hcl Inj (*Crx) 1 Mg/Ml Syr IV PUSH Q4H PRN Pain Rated 7-10 Metronidazole 500 mg in 100 mls @ 100 mls/hr 06/30/24 12:00 07/01/24 03:09 Flagyl 500 Mg/Iso Soln 100 Ml IVPB 100 mls/hr Q8H YAHIR Administration Dextrose 1,000 mls @ 100 mls/hr 06/30/24 11:34 Dextrose 5% 1,000 Ml IVPB PRN PRN Hypoglycemia Protocol Ceftriaxone Sodium 2 gm in 100 mls @ 200 mls/hr 07/01/24 09:00 07/01/24 08:34 Rocephin 2 Gm/Ns 100 Ml IVPB 200 mls/hr Q24H YAHIR Administration Insulin Aspart 2 - 5 units 06/30/24 12:00 06/30/24 16:48 Insulin Aspart (*Bkc) 100 Units/Ml SUB-Q Not Given [facility] Protocol Methimazole 10 mg 06/30/24 09:00 07/01/24 08:32 Methimazole 10 Mg Tab PO 10 mg DAILY YAHIR Administration Metoprolol Succinate 25 mg 06/30/24 09:00 07/01/24 08:32 Metoprolol Succinate Ext Rel 25 Mg Tabcr PO 25 mg DAILY YAHIR Administration Ondansetron HCl 4 mg 06/30/24 04:14 Ondansetron Inj 4 Mg/2 Ml Vial IV PUSH Q4H PRN Nausea Sertraline HCl 100 mg 06/30/24 21:00 06/30/24 20:01 Sertraline Hcl 50 Mg Tablet PO 100 mg HS YAHIR Administration Ticagrelor 90 mg 06/30/24 09:00 07/01/24 08:32 Ticagrelor 90 Mg Tablet PO 90 mg BID YAHIR Administration Radiology Results: ITS Impressions Chest X-Ray 06/29/24 21:36 IMPRESSION: No acute cardiopulmonary pathology. Abdomen/Pelvis CT 06/30/24 05:40 Impression: Findings consistent with extensive infectious/inflammatory colitis, as detailed above. Labs Labs: Laboratory Results - last 24 hr 06/30/24 06/30/24 06/30/24 11:32 16:23 20:54 WBC RBC Hgb Hct MCV MCH MCHC RDW Plt Count MPV Sodium Potassium Chloride Carbon Dioxide Anion Gap BUN Creatinine Estim Creat Clear Calc Estimated GFR Glucose POC Capillary Glucose 146 H 126 H 161 H Calcium Total Bilirubin AST ALT Alkaline Phosphatase Total Protein Albumin 07/01/24 07/01/24 06:33 07:28 WBC 5.9 RBC 3.92 L Hgb 9.9 L Hct 32.1 L MCV 81.9 MCH 25.3 L MCHC 30.8 L RDW 16.8 H Plt Count 248 MPV 9.3 Sodium 137 Potassium 3.5 Chloride 112 H Carbon Dioxide 22 Anion Gap 3 L BUN 11 D Creatinine 0.90 Estim Creat Clear Calc 44 Estimated GFR > 60 Glucose 96 POC Capillary Glucose 105 Calcium 8.7 Total Bilirubin 0.4 AST 26 ALT 13 Alkaline Phosphatase 70 Total Protein 6.0 L Albumin 3.1 L Hospitalist MIPS Advance Care Plan I have confirmed that the patient's Advanced Care Plan is present, code status is documented, or surrogate decision maker is listed in patient medical record.: Yes Medication Reconciliation I have utilized all available resources to obtain, update and review the patients current medications (includes all prescriptions, OTC, herbals, cannabis, and nutritional supplements).: Yes
[2024-07-01 10:07] LABS: Lactate Dehydrogenase 180 U/L (120-246)
[2024-07-01 10:12] LABS: Iron 37 ug/dL (37-170)
[2024-07-01 10:21] LABS: Percent Iron Saturation 11 % (20-50)
[2024-07-01 11:15] LABS: Folic Acid > 20.0 ng/mL (2.76->20)
[2024-07-01 11:31] LABS: Glucose Point of Care 134 mg/dl (65-105)
[2024-07-01] MEDS: RIVAROXABAN 2.5 MG TABLET PO ×2 (12:25→16:56)
[2024-07-01] MEDS: lisinopriL 10 MG TABLET PO (12:26)
[2024-07-01 16:32] LABS: Glucose Point of Care 133 mg/dl (65-105)
[2024-07-01 20:41] LABS: Glucose Point of Care 103 mg/dl (65-105)
[2024-07-01 20:52] LABS: Add Urine Microscopic? YES; Appearance Urine Clear (Clear); Bacteria Urine None Seen /hpf; Bilirubin Urine Negative (Negative); Blood Urine Negative (Negative); Color Urine Yellow (Yellow); Glucose Urine UA 3+ mg/dL (Negative); Ketones Urine Negative (Negative); Leukocyte Esterase Ur Negative LEU/UL (Negative); Nitrate Urine Negative (Negative); Non Pathogenic Casts 0-2; Protein Urine Trace mg/dL (Negative); RBC Urine 0-2 /hpf (0-2); Squamous Epithelial Cell Urine None Seen /hpf (Few); Urobilinogen Urine 0.2 mg/dL (<2.0); WBC Urine 0-5 /hpf (0-3)
[2024-07-01] MEDS: ATORVASTATIN 20 MG TABLET PO (20:54)
[2024-07-01] MEDS: SERTRALINE HCL 50 MG TABLET 100 MG PO (20:56)
[2024-07-02] VITALS (8 sets, daily range): BP systolic 123–146; BP diastolic 40–63; PULSE 59–72; RESP 18–20; TEMP 36.4–37; O2SAT 98–99
[2024-07-02] MEDS: metroNIDAZOLE 500 MG/ISO 100ML 500 MG/100 ML BAG 100 MG IVPB ×3 (03:16→20:59)
[2024-07-02] MEDS: CALCIUM CARBONATE (TUMS) 500 MG (200 MG ELEMENTAL) PO (03:16)
[2024-07-02 07:32] LABS: Hematocrit 30.5 % (37.0-47.0); Hemoglobin 9.4 g/dL (12.0-15.0); Mean Corpuscular HGB Conc 30.8 g/dl (32-36); Mean Corpuscular Hemoglobin 24.8 pg (26-34); Mean Corpuscular Volume 80.5 fl (80-100); Mean Platelet Volume 9.2 fl (7.4-10.4); Platelet Count Result 251 k/mm3 (150-375); Red Blood Count 3.79 M/mm3 (4.2-5.4); White Blood Count 6.6 K/mm3 (4.5-10.0)
[2024-07-02 07:48] LABS: Haptoglobin 185 mg/dL (43-212)
[2024-07-02 07:50] LABS: Alanine Aminotransferase 11 U/L (6-35); Albumin Level 3.1 g/dL (3.5-5.1); Alkaline Phosphatase 63 U/L (38-126); Anion Gap 7 mmol/L (4-12); Aspartate Amino Transferase 28 U/L (14-36); Bilirubin,Total 0.6 mg/dL (0.2-1.3); Blood Urea Nitrogen 12 mg/dL (7-17); Calcium 8.9 mg/dL (8.4-10.2); Carbon Dioxide 20 mmol/L (22-30); Chloride 110 mmol/L (98-107); Estimated CRCL calculation 44 ml/min; Estimated Glomerular Filt Rate > 60; Glucose 78 mg/dL (65-110); Potassium 3.6 mmol/L (3.4-5.0); Sodium 137 mmol/L (137-145)
[2024-07-02] MEDS: DICYCLOMINE HCL 10 MG CAPSULE 20 MG PO ×4 (08:01→20:59)
[2024-07-02] MEDS: cefTRIAXone 2 GM/NS 100 ML 2 GM/100 ML BAG IVPB (08:01)
[2024-07-02] MEDS: lisinopriL 10 MG TABLET PO (08:01)
[2024-07-02] MEDS: CLOPIDOGREL BISULFATE 75 MG TABLET PO (08:02)
[2024-07-02] MEDS: RIVAROXABAN 2.5 MG TABLET PO ×2 (08:02→16:49)
[2024-07-02] MEDS: amLODIPine BESYLATE 5 MG TABLET PO (08:02)
[2024-07-02] MEDS: methiMAzole 10 MG TAB PO (08:02)
[2024-07-02] MEDS: busPIRone HCL 2.5 MG TABLET PO ×2 (08:02→16:47)
[2024-07-02] MEDS: METOPROLOL SUCCINATE EXT REL 25 MG TABCR PO (08:02)
[2024-07-02 08:21] LABS: Glucose Point of Care 90 mg/dl (65-105)
[2024-07-02 12:10] LABS: Glucose Point of Care 107 mg/dl (65-105)
--- NOTE | 2024-07-02 12:57 | PM.IMPN ---
Progress Note: A&P Assessment and Plan (1) Pancolitis: Code(s): K51.00 - Ulcerative (chronic) pancolitis without complications Status: Acute (2) Moderate aortic stenosis: Code(s): I35.0 - Nonrheumatic aortic (valve) stenosis Status: Acute (3) Syncope: Code(s): R55 - Syncope and collapse Status: Acute Plan Syncope possibly secondary to dehydration, infectious, aortic stenosis #Colitis Past medical history of Crohn's disease Started metronidazole and rifaximin No evidence of diarrhea # anemia Hemoglobin dropped from 11.7 to 9.9 Patient takes clopidogrel, d/c Brilinta Home medication Rivaroxaban 2.5 mg p.o. b.i.d. cont Possible dilutional anemia Ordered FOBT Anemia panel including LDH haptoglobin vitamin B12 and folate #CAD/PAD Multiple stents in her heart and bilateral lower extremity Echo ordered Patient is on aspirin, Plavix, Brilinta # hyperthyroidism Continue methimazole 10 mg p.o. q.d. # diabetes type 2 Hold home medication On sliding scale # hypokalemia Continuing home Potassium chloride 20 meq Subjective Date/time seen: 07/02/24 12:57 Interval history: Patient reports he is feeling better when compared to yesterday. Able to tolerate clear liquid diet this morning. Will advanced diet as tolerated. We will keep continuing antibiotic metronidazole and ceftriaxone for colitis. As mentioned above patient has a past medical history of Crohn's disease. Review of Systems Review of Systems: All systems as dictated in HPI Exam Narrative: GENERAL: Well-appearing, well-nourished, and in no acute distress. HEAD: Normocephalic, atraumatic. EYES: PERRLA and EOMI. ENT: Nares clear, no rhinorrhea or epistaxis. Mucous membranes moist. Oropharynx without tonsillar hypertrophy exudate or other lesions. NECK: Supple. No adenopathy or masses. CHEST: No respiratory distress. Clear to auscultation. No wheezes rales or rhonchi HEART: Regular rate and rhythm. No murmur heard. Normal peripheral pulses. ABDOMEN: Soft, nontender, nondistended, normal active bowel sounds. MSK: Normal range of motion. No edema. SKIN: Warm, dry, no rash. NEURO: Alert and oriented x4. No focal deficits. PSYCH: Normal mood and affect. Objective Data Vital Signs Vital Signs: Vital Signs - 24 hr 07/01/24 14:00 07/01/24 21:08 07/01/24 20:00 Temperature 97.8 F 98.5 F Pulse Rate 70 61 Respiratory Rate 16 16 Blood Pressure 153/52 H 142/60 H Pulse Oximetry 97 99 Oxygen Delivery Room Air 07/01/24 20:00 07/02/24 00:00 07/02/24 04:00 Temperature Pulse Rate 65 66 65 Respiratory Rate Blood Pressure Pulse Oximetry Oxygen Delivery 07/02/24 06:00 07/02/24 08:02 07/02/24 08:00 Temperature 97.5 F L Pulse Rate 66 72 68 Respiratory Rate 18 Blood Pressure 146/49 H Pulse Oximetry 98 Oxygen Delivery 07/02/24 08:00 Temperature Pulse Rate 72 Respiratory Rate 18 Blood Pressure Pulse Oximetry 98 Oxygen Delivery Room Air Intake/Output Intake/Output: Intake & Output 06/29/24 06/30/24 07/01/24 07/02/24 23:59 23:59 23:59 23:59 Intake Total 968 1648 590 Output Total 950 2250 200 Balance 18 -602 390 Meds/Results Medications: Active Medications Generic Name Dose Route Start Last Admin Trade Name Freq PRN Reason Stop Dose Admin Alprazolam 0.5 mg 06/30/24 08:13 Alprazolam (*Crx) 0.5 Mg Tablet PO DAILY PRN anxiety Amlodipine Besylate 5 mg 07/01/24 09:00 07/02/24 08:02 Amlodipine Besylate 5 Mg Tablet PO 5 mg DAILY YAHIR Administration Atorvastatin Calcium 20 mg 06/30/24 21:00 07/01/24 20:54 Atorvastatin 20 Mg Tablet PO 20 mg HS YAHIR Administration Buspirone HCl 2.5 mg 06/30/24 09:00 07/02/24 08:02 Buspirone Hcl 2.5 Mg Tablet PO 2.5 mg BID YAHIR Administration Calcium Carbonate 200 mg 07/01/24 22:39 07/02/24 03:16 Calcium Carbonate (Tums) 500 Mg (200 Mg Elemental) PO 200 mg TID PRN Administration Indigestion Clopidogrel Bisulfate 75 mg 06/30/24 09:00 07/02/24 08:02 Clopidogrel Bisulfate 75 Mg Tablet PO 75 mg DAILY YAHIR Administration Dextrose 12.5 gm 06/30/24 11:34 Dextrose 50% 25 Gm/50 Ml Syringe IV PUSH PRN PRN Hypoglycemia Protocol Dicyclomine HCl 20 mg 06/30/24 09:00 07/02/24 08:01 Dicyclomine Hcl 10 Mg Capsule PO 20 mg QID YAHIR Administration Glucose 15 gm 06/30/24 11:34 Glucose Oral Gel 15 Gm Of Glucse In 37.5 Gm Tube PO PRN PRN Hypoglycemia Protocol Hydromorphone HCl 0.5 mg 06/30/24 04:14 Hydromorphone Hcl Inj (*Crx) 1 Mg/Ml Syr IV PUSH Q4H PRN Pain Rated 7-10 Metronidazole 500 mg in 100 mls @ 100 mls/hr 06/30/24 12:00 07/02/24 03:16 Flagyl 500 Mg/Iso Soln 100 Ml IVPB 100 mls/hr Q8H YAHIR Administration Dextrose 1,000 mls @ 100 mls/hr 06/30/24 11:34 Dextrose 5% 1,000 Ml IVPB PRN PRN Hypoglycemia Protocol Ceftriaxone Sodium 2 gm in 100 mls @ 200 mls/hr 07/01/24 09:00 07/02/24 08:01 Rocephin 2 Gm/Ns 100 Ml IVPB 200 mls/hr Q24H YAHIR Administration Insulin Aspart 2 - 5 units 06/30/24 12:00 07/02/24 08:14 Insulin Aspart (*Bkc) 100 Units/Ml SUB-Q Not Given TIDWM YAHIR Protocol Lisinopril 10 mg 07/01/24 09:00 07/02/24 08:01 Lisinopril 10 Mg Tablet PO 10 mg DAILY YAHIR Administration Methimazole 10 mg 06/30/24 09:00 07/02/24 08:02 Methimazole 10 Mg Tab PO 10 mg DAILY YAHIR Administration Metoprolol Succinate 25 mg 06/30/24 09:00 07/02/24 08:02 Metoprolol Succinate Ext Rel 25 Mg Tabcr PO 25 mg DAILY YAHIR Administration Ondansetron HCl 4 mg 06/30/24 04:14 Ondansetron Inj 4 Mg/2 Ml Vial IV PUSH Q4H PRN Nausea Rivaroxaban 2.5 mg 07/01/24 10:30 07/02/24 08:02 Rivaroxaban 2.5 Mg Tablet PO 2.5 mg BID YAHIR Administration Sertraline HCl 100 mg 06/30/24 21:00 07/01/24 20:56 Sertraline Hcl 50 Mg Tablet PO 100 mg HS YAHIR Administration Radiology Results: ITS Impressions Chest X-Ray 06/29/24 21:36 IMPRESSION: No acute cardiopulmonary pathology. Abdomen/Pelvis CT 06/30/24 05:40 Impression: Findings consistent with extensive infectious/inflammatory colitis, as detailed above. Labs Labs: Laboratory Results - last 24 hr 07/01/24 07/01/24 07/01/24 11:19 16:30 20:18 WBC RBC Hgb Hct MCV MCH MCHC RDW Plt Count MPV Haptoglobin 185 Sodium Potassium Chloride Carbon Dioxide Anion Gap BUN Creatinine Estim Creat Clear Calc Estimated GFR Glucose POC Capillary Glucose 133 H 103 Calcium Total Bilirubin AST ALT Alkaline Phosphatase Total Protein Albumin Urine Color Urine Appearance Urine pH Ur Specific [place] Urine Protein Urine Glucose (UA) Urine Ketones Ur Blood (Man) Urine Nitrate Urine Bilirubin Urine Urobilinogen Leukocyte Esterase Rfl Urine RBC Urine WBC Ur Squamous Epith Cells Urine Bacteria Urine Casts 07/01/24 07/02/24 07/02/24 20:40 06:23 08:19 WBC 6.6 RBC 3.79 L Hgb 9.4 L Hct 30.5 L MCV 80.5 MCH 24.8 L MCHC 30.8 L RDW 17.0 H Plt Count 251 MPV 9.2 Haptoglobin Sodium 137 Potassium 3.6 Chloride 110 H Carbon Dioxide 20 L Anion Gap 7 BUN 12 Creatinine 0.90 Estim Creat Clear Calc 44 Estimated GFR > 60 Glucose 78 POC Capillary Glucose 90 Calcium 8.9 Total Bilirubin 0.6 AST 28 ALT 11 Alkaline Phosphatase 63 Total Protein 6.0 L Albumin 3.1 L Urine Color Yellow Urine Appearance Clear Urine pH 6.0 Ur Specific [place] 1.020 Urine Protein Trace Urine Glucose (UA) 3+ H Urine Ketones Negative Ur Blood (Man) Negative Urine Nitrate Negative Urine Bilirubin Negative Urine Urobilinogen 0.2 Leukocyte Esterase Rfl Negative Urine RBC 0-2 Urine WBC 0-5 Ur Squamous Epith Cells None seen Urine Bacteria None seen Urine Casts 0-2 07/02/24 11:56 WBC RBC Hgb Hct MCV MCH MCHC RDW Plt Count MPV Haptoglobin Sodium Potassium Chloride Carbon Dioxide Anion Gap BUN Creatinine Estim Creat Clear Calc Estimated GFR Glucose POC Capillary Glucose 107 H Calcium Total Bilirubin AST ALT Alkaline Phosphatase Total Protein Albumin Urine Color Urine Appearance Urine pH Ur Specific [place] Urine Protein Urine Glucose (UA) Urine Ketones Ur Blood (Man) Urine Nitrate Urine Bilirubin Urine Urobilinogen Leukocyte Esterase Rfl Urine RBC Urine WBC Ur Squamous Epith Cells Urine Bacteria Urine Casts Hospitalist MIPS Advance Care Plan I have confirmed that the patient's Advanced Care Plan is present, code status is documented, or surrogate decision maker is listed in patient medical record.: Yes Medication Reconciliation I have utilized all available resources to obtain, update and review the patients current medications (includes all prescriptions, OTC, herbals, cannabis, and nutritional supplements).: Yes
[2024-07-02 16:57] LABS: Glucose Point of Care 139 mg/dl (65-105)
[2024-07-02] MEDS: ATORVASTATIN 20 MG TABLET PO (20:59)
[2024-07-02] MEDS: ALPRAZolam (*CRX) 0.5 MG TABLET PO (21:00)
[2024-07-02] MEDS: SERTRALINE HCL 50 MG TABLET 100 MG PO (21:00)
[2024-07-02 23:35] LABS: Glucose Point of Care 149 mg/dl (65-105)
[2024-07-03 05:10] VITALS: BP 114/50; PULSE 60; RESP 18; TEMP 36.4; O2SAT 96
[2024-07-03] MEDS: metroNIDAZOLE 500 MG/ISO 100ML 500 MG/100 ML BAG 100 MG IVPB ×2 (05:15→12:06)
[2024-07-03 07:51] LABS: Glucose Point of Care 114 mg/dl (65-105)
[2024-07-03 08:00] VITALS: O2SAT 96
[2024-07-03] MEDS: cefTRIAXone 2 GM/NS 100 ML 2 GM/100 ML BAG IVPB (08:26)
[2024-07-03] MEDS: busPIRone HCL 2.5 MG TABLET PO ×2 (08:27→16:34)
[2024-07-03] MEDS: lisinopriL 10 MG TABLET PO (08:27)
[2024-07-03] MEDS: CLOPIDOGREL BISULFATE 75 MG TABLET PO (08:27)
[2024-07-03] MEDS: amLODIPine BESYLATE 5 MG TABLET PO (08:27)
[2024-07-03] MEDS: DICYCLOMINE HCL 10 MG CAPSULE 20 MG PO ×4 (08:27→21:35)
[2024-07-03 08:28] VITALS: PULSE 70
[2024-07-03] MEDS: methiMAzole 10 MG TAB PO (08:28)
[2024-07-03] MEDS: RIVAROXABAN 2.5 MG TABLET PO ×2 (08:28→16:34)
[2024-07-03] MEDS: METOPROLOL SUCCINATE EXT REL 25 MG TABCR PO (08:28)
--- NOTE | 2024-07-03 08:31 | PM.IMPN ---
Progress Note: A&P Assessment and Plan (1) Pancolitis: Code(s): K51.00 - Ulcerative (chronic) pancolitis without complications Status: Acute (2) Moderate aortic stenosis: Code(s): I35.0 - Nonrheumatic aortic (valve) stenosis Status: Acute (3) Syncope: Code(s): R55 - Syncope and collapse Status: Acute Plan 78-year-old female with PMH of history of RODERICK, hyperlipidemia, hypothyroidism, CAD, GERD, CHF, hypertension , Crohn disease, brought to ED because of syncopal episode she went to the toilet to have a bowel movement and started to have a ?spasm of my colon. Syncope possibly secondary to dehydration, infectious, Continue Telemetry monitoring Echocardiogram showed Summary 1. Left ventricular chamber dimension is normal. 2. Left ventricular systolic function is normal, estimated at 65-70%. 3. There is mildly increased left ventricular wall thickness. 4. The left ventricular diastolic function is grade I diastolic dysfunction. 5. Right ventricular chamber dimension is normal. 6. Right ventricular systolic function is normal. 7. There is mild to moderate aortic valve regurgitation. 8. There is moderate aortic valve stenosis. 9. There is mild mitral valve regurgitation. 10. Moderate mitral annular calcification. 11. There is mild mitral valve stenosis. Moderate aortic stenosis less possible to cause syncope, but patient has CAD, risk of cardiogenic syncope Consult piecer up for evaluation treatment Colitis Past medical history of Crohn's disease Started metronidazole and rifaximin No evidence of diarrhea # anemia Hemoglobin dropped from 11.7 to 9.9 Patient takes clopidogrel, d/c Brilinta Home medication Rivaroxaban 2.5 mg p.o. b.i.d. cont Possible dilutional anemia Ordered FOBT Anemia panel including LDH haptoglobin vitamin B12 and folate CAD/PAD Multiple stents in her heart and bilateral lower extremity Echo ordered Patient is on aspirin, Plavix, Brilinta # hyperthyroidism Continue methimazole 10 mg p.o. q.d. # diabetes type 2 Hold home medication On sliding scale # hypokalemia Continuing home Potassium chloride 20 meq Left hip pain CT abdomen pelvis did not show hip fracture Consult PT OT transitional care nurse for evaluation and assisting placement Consult PT OT to renal social worker for evaluation and assisting placement Subjective Date/time seen: 07/03/24 08:31 Interval history: Patient tolerate clear diet, will advance soft diet per patient request. Patient denies abdomen pain today, also denies nausea vomiting. Afebrile, blood pressure stable. Patient has left hip pain from prior fall Exam Narrative: GENERAL: Well-appearing, well-nourished, and in no acute distress. HEAD: Normocephalic, atraumatic. EYES: PERRLA and EOMI. ENT: Nares clear, no rhinorrhea or epistaxis. Mucous membranes moist. Oropharynx without tonsillar hypertrophy exudate or other lesions. NECK: Supple. No adenopathy or masses. CHEST: No respiratory distress. Clear to auscultation. No wheezes rales or rhonchi HEART: Regular rate and rhythm. No murmur heard. Normal peripheral pulses. ABDOMEN: Soft, nontender, nondistended, normal active bowel sounds. MSK: Normal range of motion. No edema. SKIN: Warm, dry, no rash. NEURO: Alert and oriented x4. No focal deficits. PSYCH: Normal mood and affect. Objective Data Vital Signs Vital Signs: Vital Signs - 24 hr 07/02/24 12:00 07/02/24 13:51 07/02/24 20:00 Temperature 97.6 F Pulse Rate 59 L 64 Respiratory Rate 18 Blood Pressure 123/40 L Pulse Oximetry 99 Oxygen Delivery Room Air 07/02/24 22:00 07/03/24 05:10 07/03/24 08:00 Temperature 98.6 F 97.6 F Pulse Rate 72 60 Respiratory Rate 20 18 Blood Pressure 137/63 114/50 L Pulse Oximetry 98 96 96 Oxygen Delivery Room Air Intake/Output Intake/Output: Intake & Output 06/30/24 07/01/24 07/02/24 07/03/24 23:59 23:59 23:59 23:59 Intake Total 968 1648 1730 300 Output Total 950 2250 200 Balance 18 -602 1530 300 Meds/Results Medications: Active Medications Generic Name Dose Route Start Last Admin Trade Name Freq PRN Reason Stop Dose Admin Alprazolam 0.5 mg 06/30/24 08:13 07/02/24 21:00 Alprazolam (*Crx) 0.5 Mg Tablet PO 0.5 mg DAILY PRN Administration anxiety Amlodipine Besylate 5 mg 07/01/24 09:00 07/02/24 08:02 Amlodipine Besylate 5 Mg Tablet PO 5 mg DAILY YAHIR Administration Atorvastatin Calcium 20 mg 06/30/24 21:00 07/02/24 20:59 Atorvastatin 20 Mg Tablet PO 20 mg HS YAHIR Administration Buspirone HCl 2.5 mg 06/30/24 09:00 07/02/24 16:47 Buspirone Hcl 2.5 Mg Tablet PO 2.5 mg BID YAHIR Administration Calcium Carbonate 200 mg 07/01/24 22:39 07/02/24 03:16 Calcium Carbonate (Tums) 500 Mg (200 Mg Elemental) PO 200 mg TID PRN Administration Indigestion Clopidogrel Bisulfate 75 mg 06/30/24 09:00 07/02/24 08:02 Clopidogrel Bisulfate 75 Mg Tablet PO 75 mg DAILY YAHIR Administration Dextrose 12.5 gm 06/30/24 11:34 Dextrose 50% 25 Gm/50 Ml Syringe IV PUSH PRN PRN Hypoglycemia Protocol Dicyclomine HCl 20 mg 06/30/24 09:00 07/02/24 20:59 Dicyclomine Hcl 10 Mg Capsule PO 20 mg QID YAHIR Administration Glucose 15 gm 06/30/24 11:34 Glucose Oral Gel 15 Gm Of Glucse In 37.5 Gm Tube PO PRN PRN Hypoglycemia Protocol Hydromorphone HCl 0.5 mg 06/30/24 04:14 Hydromorphone Hcl Inj (*Crx) 1 Mg/Ml Syr IV PUSH Q4H PRN Pain Rated 7-10 Metronidazole 500 mg in 100 mls @ 100 mls/hr 06/30/24 12:00 07/03/24 06:15 Flagyl 500 Mg/Iso Soln 100 Ml IVPB Infused Q8H YAHIR Infusion Dextrose 1,000 mls @ 100 mls/hr 06/30/24 11:34 Dextrose 5% 1,000 Ml IVPB PRN PRN Hypoglycemia Protocol Ceftriaxone Sodium 2 gm in 100 mls @ 200 mls/hr 07/01/24 09:00 07/02/24 08:01 Rocephin 2 Gm/Ns 100 Ml IVPB 200 mls/hr Q24H YAHIR Administration Insulin Aspart 2 - 5 units 06/30/24 12:00 07/03/24 07:57 Insulin Aspart (*Bkc) 100 Units/Ml SUB-Q Not Given TIDWM YAHIR Protocol Lisinopril 10 mg 07/01/24 09:00 07/02/24 08:01 Lisinopril 10 Mg Tablet PO 10 mg DAILY YAHIR Administration Methimazole 10 mg 06/30/24 09:00 07/02/24 08:02 Methimazole 10 Mg Tab PO 10 mg DAILY YAHIR Administration Metoprolol Succinate 25 mg 06/30/24 09:00 07/02/24 08:02 Metoprolol Succinate Ext Rel 25 Mg Tabcr PO 25 mg DAILY YAHIR Administration Ondansetron HCl 4 mg 06/30/24 04:14 Ondansetron Inj 4 Mg/2 Ml Vial IV PUSH Q4H PRN Nausea Rivaroxaban 2.5 mg 07/01/24 10:30 07/02/24 16:49 Rivaroxaban 2.5 Mg Tablet PO 2.5 mg BID YAHIR Administration Sertraline HCl 100 mg 06/30/24 21:00 07/02/24 21:00 Sertraline Hcl 50 Mg Tablet PO 100 mg HS YAHIR Administration Radiology Results: ITS Impressions Chest X-Ray 06/29/24 21:36 IMPRESSION: No acute cardiopulmonary pathology. Abdomen/Pelvis CT 06/30/24 05:40 Impression: Findings consistent with extensive infectious/inflammatory colitis, as detailed above. Labs Labs: Laboratory Results - last 24 hr 07/02/24 07/02/24 07/02/24 11:56 16:47 23:33 POC Capillary Glucose 107 H 139 H 149 H 07/03/24 07:48 POC Capillary Glucose 114 H
[2024-07-03] MEDS: CALCIUM CARBONATE (TUMS) 500 MG (200 MG ELEMENTAL) PO (08:34)
[2024-07-03] MEDS: ACETAMINOPHEN 500 MG TABLET 1000 MG PO ×2 (08:50→23:20)
[2024-07-03 09:06] LABS: Basophils Absolute Auto 0.1 K/mm3 (0.0-0.1); Basophils Percent Auto 0.8 % (0.2-1.2); Eosinophils Absolute Auto 0.3 K/mm3 (0-0.3); Eosinophils Percent Auto 5.3 % (0-4.4); Hematocrit 31.6 % (37.0-47.0); Hemoglobin 9.6 g/dL (12.0-15.0); Immature Granulocyte Absolute 0.02 K/mm3 (0.00-0.031); Immature Granulocyte Percent A 0.3 % (0-0.5); Lymphocytes Percent Auto 23.3 % (18.3-44.2); Mean Corpuscular HGB Conc 30.4 g/dl (32-36); Mean Corpuscular Hemoglobin 24.8 pg (26-34); Mean Corpuscular Volume 81.7 fl (80-100); Mean Platelet Volume 9.3 fl (7.4-10.4); Monocytes Absolute Auto 0.7 K/mm3 (0.1-0.6); Monocytes Percent Auto 11.2 % (2.6-8.5); Neutrophils Absolute Auto 3.8 K/mm3 (1.3-6.7); Neutrophils Percent Auto 59.1 % (45.5-73.1); Platelet Count Result 242 k/mm3 (150-375); Red Blood Count 3.87 M/mm3 (4.2-5.4); Red Cell Distribution Width 16.8 % (11.5-14.5); White Blood Count 6.4 K/mm3 (4.5-10.0)
[2024-07-03 09:18] LABS: Anion Gap 6 mmol/L (4-12); Blood Urea Nitrogen 13 mg/dL (7-17); Calcium 8.8 mg/dL (8.4-10.2); Carbon Dioxide 22 mmol/L (22-30); Chloride 110 mmol/L (98-107); Estimated CRCL calculation 37 ml/min; Estimated Glomerular Filt Rate 48; Glucose 118 mg/dL (65-110); Potassium 3.5 mmol/L (3.4-5.0); Sodium 138 mmol/L (137-145)
[2024-07-03 11:04] LABS: IFOB Positive Control Positive; Immunochemical Fecal Occult Bl Negative (N)
[2024-07-03 11:41] LABS: Glucose Point of Care 171 mg/dl (65-105)
[2024-07-03 14:00] VITALS: BP 147/54; PULSE 60; RESP 16; TEMP 36.4; O2SAT 100
--- NOTE | 2024-07-03 14:27 | P.CONCA_ITS ---
Assessment and Plan Assessment and plan (1) Syncope: Code(s): R55 - Syncope and collapse Status: Acute Assessment and Plan: History most consistent with vasovagal syncope. There is no obvious cardiac etiology. She is not on telemetry at this point. EKG shows sinus rhythm with first degree AV block. I am not going to recommend any further cardiac workup. Cardiology will sign off. 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 (2) CAD (coronary artery disease): Code(s): I25.10 - Atherosclerotic heart disease of [place] coronary artery without angina pectoris Status: Acute Assessment and Plan: Stable. No anginal symptoms. She has been shifted to plavix because she is also on low dose Xarelto because of her PAD. Her home medication list in [facility] also shows atorvastatin 80mg daily which should be continued. (3) HLD (hyperlipidemia): Code(s): E78.5 - Hyperlipidemia, unspecified Status: Chronic Assessment and Plan: As above, continue high intensity statin History of Present Illness History of Present Illness Consult date/time: 07/03/24 14:27 Requesting physician: Mitchell Singh MD Consult reason: Other (syncope) Reason For Visit: pancolitis Narrative: Osvaldo (Renato Rawls us a 78 year old female with coronary artery disease status post stenting in September of this year (follows at [facility]), IBS, Crohn's disease, admitted with colitis. Cardiology is consulted because of syncope. Patient states she was straining to have a bowel movement and was also having abdominal pain and she briefly lost consciousness. She tells me she has a long history of vasovagal syncope related to her bowel disease, but that over the past year she has had fewer episodes of syncope. She denies any type of known heart rhythm abnormalities, congestive heart failure, valvular heart disease. She does have peripheral arterial disease as well and has a vascular surgeon who follows this. She is comfortably and without complaint at the time of my evaluation. Review of Systems 2 Review of Systems: All systems reviewed & are unremarkable except as noted in HPI and below PMFSH Past Medical History Medical History Anemia Anxiety Back contusion Back pain CAD (coronary artery disease) Cataracts, bilateral CHF (congestive heart failure) Colitis Crohn's disease Depression Depression with anxiety Diabetes mellitus DVT (deep venous thrombosis) Fibromyalgia Gastrointestinal ulcer GERD (gastroesophageal reflux disease) History of angina HLD (hyperlipidemia) HTN (hypertension) Hypothyroidism IBS (irritable bowel syndrome) Kidney stones TIA (transient ischemic attack) UTI (urinary tract infection) Surgical History Surgical History H/O cataract extraction H/O heart artery stent History of bladder surgery History of hysterectomy History of loop recorder History of right knee joint replacement Hx of appendectomy Hx of CABG Hx of cardiac catheterization Hx of cholecystectomy Hx of spinal surgery S/P peripheral artery angioplasty with stent placement Family History Family History Father Cerebrovascular accident, Onset Age: 62 Family history of coronary artery disease Family history of alcoholism Acute myocardial infarction, Onset Age: 62 Patient's father is Mother Cerebrovascular accident, Onset Age: 84 Family history of coronary artery disease Family history of diabetes mellitus in first degree relative Asthma Family history of congestive heart failure Family history of heart disease in male family member before age 55 Diabetes mellitus, Onset Age: 84 Family history of gastrointestinal disorder, Onset Age: 84 Family history of cardiovascular disease, Onset Age: 84 Patient's mother is Sibling Family history of thyroid disease Diabetes mellitus Carcinoma of colon Patient's sister is Other Family history of kidney disease Hypertension Social History Social History Social History: Lives at home with her , grandson. Lifelong nonsmoker. Denies alcohol or drug use. Full code. 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 Lifelong nonsmoker. Does not use any alcohol marijuana or illicit drugs. Her oldest daughter Eli is a durable power securities attorney for healthcare Code status full code Smoking status: Never smoker Second hand tobacco smoke exposure: No Alcohol intake: never Substance use: never Substance use type: does not use Do You Feel Safe in your Home?: Yes Lack of Transportation: No Lack of Food: Never True Current Housing: I Have Housing Concerned About Future Housing: No Difficulty Paying Gas/Electric Bills: No Difficulty Paying for Meds: No Currently Unemployed: No Education: Decline to Answer Difficulty w/ Childcare or Family Care: No Gender identity (if verbalized by the patient): Female Sexual Orientation (if Verbalized by the Patient): Straight or Heterosexual Spiritual care concerns: No Meds Home Medications and Allergies Home Medications Medication Instructions Recorded Confirmed Type atorvastatin 20 mg tablet 20 mg PO HS 09/26/19 06/30/24 History dapagliflozin propanediol 10 mg 10 mg PO DAILY 09/18/20 06/30/24 History tablet (Farxiga) ezetimibe 10 mg tablet 10 mg PO DAILY 09/18/20 06/30/24 History icosapent ethyl 1 gram capsule 2 g PO BID 09/18/20 06/30/24 History (Vascepa) pantoprazole 40 mg tablet,delayed 40 mg PO DAILY 10/03/20 06/30/24 History release dicyclomine 20 mg tablet 20 mg PO QID 04/23/21 06/30/24 History furosemide 40 mg tablet 40 mg PO QAM 04/23/21 06/30/24 History pen needle, diabetic 33 gauge x #400 ea 04/23/21 06/30/24 Rx 5/16 (Comfort EZ Pen Velva) ticagrelor 90 mg tablet (Brilinta) 90 mg PO BID 05/03/21 06/30/24 History buspirone 5 mg tablet 2.5 mg PO BID 04/02/22 06/30/24 History methimazole 5 mg tablet 10 mg PO DAILY 04/02/22 06/30/24 History metoprolol succinate 25 mg 25 mg PO DAILY 04/02/22 06/30/24 History tablet,extended release 24 hr potassium chloride 20 mEq 20 meq PO DAILY 04/02/22 06/30/24 History tablet,extended release(part/cryst) (Klor-Con M) sertraline 100 mg tablet 100 mg PO HS 04/02/22 06/30/24 History rivaroxaban 2.5 mg tablet (Xarelto) 2.5 mg PO BID 01/29/23 06/30/24 History alprazolam 0.5 mg tablet 0.5 mg PO DAILY PRN anxiety 06/30/24 06/30/24 History clopidogrel 75 mg tablet 75 mg PO DAILY 06/30/24 06/30/24 History furosemide 20 mg tablet 20 mg PO HS 06/30/24 06/30/24 History Allergies Allergy/AdvReac Type Severity Reaction Status Date / Time ranolazine Allergy Intermediate Unknown Verified 06/30/24 06:43 gabapentin Allergy Mild Confusion Verified 06/30/24 06:43 cyclobenzaprine Allergy Unknown Unknown Verified 06/30/24 06:43 fentanyl Allergy Unknown Unknown Verified 06/30/24 06:43 ciprofloxacin [From Cipro] Allergy Unknown Verified 06/30/24 06:43 doxycycline Allergy Unknown Verified 06/30/24 06:43 Penicillins Allergy Anaphylaxis Verified 07/03/24 12:46 Vital Signs Vital Signs - 24 hr 07/02/24 20:00 07/02/24 22:00 07/03/24 05:10 Temperature 37.0 C 36.4 C Pulse Rate 72 60 Respiratory Rate 20 18 Blood Pressure 137/63 114/50 L Pulse Oximetry 98 96 Oxygen Delivery Room Air 07/03/24 08:00 07/03/24 08:28 07/03/24 14:00 Temperature 36.4 C Pulse Rate 70 60 Respiratory Rate 16 Blood Pressure 147/54 H Pulse Oximetry 96 100 Oxygen Delivery Room Air Exam 2 Const: General: comfortable, no acute distress, alert and awake O rientation/consciousness: patient oriented x3 HENMT: Head: normal to inspection Eyes: General: appearance normal, both eyes and all related structures P upils: Equal, round and reactive pupils present Neck: Neck: normal visual inspection, supple and no JVD Carotids: normal carotid upstroke Resp: Effort & Inspection: normal respiratory effort Auscultation: clear to auscultation bilaterally Cardio: Rate: regular rate Rhythm: regular rhythm Heart sounds: S1 normal heart sound present, S2 normal heart sound present and Murmur heart sound present systolic III/, at the apex and at the base GI: Auscultation: normal bowel sounds Skin: General skin exam: normal color Neuro: General: patient oriented x3 Cranial nerves: Yes Equal, round and reactive pupils present Extrem: General: normal to inspection Other: no edema Psych: Appearance: grossly normal Mental Status: mental status grossly normal Results Labs and Meds 07/03/24 08:58 07/03/24 08:58 Lab results: CBC 07/03/24 Range/Units 08:58 WBC 6.4 (4.5-10.0) K/mm3 RBC 3.87 L (4.2-5.4) M/mm3 Hgb 9.6 L (12.0-15.0) g/dL Hct 31.6 L (37.0-47.0) % Plt Count 242 (150-375) k/mm3 Lymph # (Auto) 1.50 (0.9-3.2) K/mm3 [place] # (Auto) 0.7 H (0.1-0.6) K/mm3 Eos # (Auto) 0.3 (0-0.3) K/mm3 Baso # (Auto) 0.1 (0.0-0.1) K/mm3 Comprehensive Metabolic Panel 07/03/24 Range/Units 08:58 Sodium 138 (137-145) mmol/L Potassium 3.5 (3.4-5.0) mmol/L Chloride 110 H (98-107) mmol/L Carbon Dioxide 22 (22-30) mmol/L BUN 13 (7-17) mg/dL Creatinine 1.10 H (0.7-1.0) mg/dL Glucose 118 H (65-110) mg/dL Calcium 8.8 (8.4-10.2) mg/dL Intake and Output 07/02/24 07/03/24 07/03/24 23:59 07:59 15:59 Intake Total 700 300 460 Balance 700 300 460 Intake: IV 100 100 100 cefTRIAXone 2 GM/NS 100 ML 2 gm 100 In 100 ml @ 200 mls/hr IVPB Q24H YAHIR Rx#:[id number] metroNIDAZOLE 500 MG/ISO 100ML 100 100 500 mg In 100 ml @ 100 mls/hr IVPB Q8H YAHIR Rx#:[id number] Oral 600 200 360 Other: # Unmeasured Voids 3 3
[2024-07-03 16:37] LABS: Glucose Point of Care 144 mg/dl (65-105)
[2024-07-03 20:52] LABS: Glucose Point of Care 207 mg/dl (65-105)
[2024-07-03] MEDS: SERTRALINE HCL 50 MG TABLET 100 MG PO (21:34)
[2024-07-03] MEDS: metroNIDAZOLE 500 MG TABLET PO (21:34)
[2024-07-03] MEDS: ATORVASTATIN 20 MG TABLET PO (21:35)
[2024-07-03 21:49] VITALS: BP 144/53; PULSE 63; RESP 20; TEMP 36.6; O2SAT 100
[2024-07-04 06:00] VITALS: BP 127/86; PULSE 68; RESP 18; TEMP 36.6; O2SAT 99
[2024-07-04 07:38] LABS: Basophils Absolute Auto 0.1 K/mm3 (0.0-0.1); Basophils Percent Auto 0.8 % (0.2-1.2); Eosinophils Absolute Auto 0.4 K/mm3 (0-0.3); Hematocrit 34.6 % (37.0-47.0); Hemoglobin 10.7 g/dL (12.0-15.0); Immature Granulocyte Absolute 0.01 K/mm3 (0.00-0.031); Immature Granulocyte Percent A 0.1 % (0-0.5); Lymphocytes Absolute Auto 2.55 K/mm3 (0.9-3.2); Lymphocytes Percent Auto 35.7 % (18.3-44.2); Mean Corpuscular HGB Conc 30.9 g/dl (32-36); Mean Corpuscular Hemoglobin 25.1 pg (26-34); Mean Corpuscular Volume 81.2 fl (80-100); Mean Platelet Volume 9.1 fl (7.4-10.4); Monocytes Absolute Auto 0.7 K/mm3 (0.1-0.6); Monocytes Percent Auto 9.8 % (2.6-8.5); Neutrophils Absolute Auto 3.4 K/mm3 (1.3-6.7); Neutrophils Percent Auto 47.6 % (45.5-73.1); Platelet Count Result 307 k/mm3 (150-375); Red Blood Count 4.26 M/mm3 (4.2-5.4); Red Cell Distribution Width 16.9 % (11.5-14.5); White Blood Count 7.1 K/mm3 (4.5-10.0)
[2024-07-04 08:05] LABS: Anion Gap 6 mmol/L (4-12); Blood Urea Nitrogen 12 mg/dL (7-17); Calcium 9.6 mg/dL (8.4-10.2); Carbon Dioxide 22 mmol/L (22-30); Chloride 110 mmol/L (98-107); Estimated CRCL calculation 37 ml/min; Estimated Glomerular Filt Rate 48; Glucose 140 mg/dL (65-110); Potassium 3.6 mmol/L (3.4-5.0); Sodium 138 mmol/L (137-145)
[2024-07-04] MEDS: CLOPIDOGREL BISULFATE 75 MG TABLET PO (08:09)
[2024-07-04] MEDS: metroNIDAZOLE 500 MG TABLET PO ×2 (08:09→13:39)
[2024-07-04] MEDS: amLODIPine BESYLATE 5 MG TABLET PO (08:09)
[2024-07-04 08:10] VITALS: PULSE 74
[2024-07-04] MEDS: METOPROLOL SUCCINATE EXT REL 25 MG TABCR PO (08:10)
[2024-07-04] MEDS: lisinopriL 10 MG TABLET PO (08:10)
[2024-07-04] MEDS: DICYCLOMINE HCL 10 MG CAPSULE 20 MG PO ×2 (08:10→12:47)
[2024-07-04] MEDS: busPIRone HCL 2.5 MG TABLET PO (08:10)
[2024-07-04] MEDS: RIVAROXABAN 2.5 MG TABLET PO (08:11)
[2024-07-04] MEDS: methiMAzole 10 MG TAB PO (08:11)
[2024-07-04 08:19] LABS: Glucose Point of Care 148 mg/dl (65-105)
[2024-07-04] MEDS: CEFDINIR 300 MG CAPSULE PO (09:21)
[2024-07-04] MEDS: ACETAMINOPHEN 500 MG TABLET 1000 MG PO (09:21)
--- NOTE | 2024-07-04 09:43 | PM.IMPN ---
Progress Note: A&P Assessment and Plan (1) Pancolitis: Code(s): K51.00 - Ulcerative (chronic) pancolitis without complications Status: Acute (2) Moderate aortic stenosis: Code(s): I35.0 - Nonrheumatic aortic (valve) stenosis Status: Acute (3) Syncope: Code(s): R55 - Syncope and collapse Status: Acute Plan 78-year-old female with PMH of history of [place], hyperlipidemia, hypothyroidism, CAD, GERD, CHF, hypertension , Crohn disease, brought to ED because of syncopal episode she went to the toilet to have a bowel movement and started to have a ?spasm of my colon. Syncope possibly secondary to dehydration, infectious, Continue Telemetry monitoring Echocardiogram showed Summary 1. Left ventricular chamber dimension is normal. 2. Left ventricular systolic function is normal, estimated at 65-70%. 3. There is mildly increased left ventricular wall thickness. 4. The left ventricular diastolic function is grade I diastolic dysfunction. 5. Right ventricular chamber dimension is normal. 6. Right ventricular systolic function is normal. 7. There is mild to moderate aortic valve regurgitation. 8. There is moderate aortic valve stenosis. 9. There is mild mitral valve regurgitation. 10. Moderate mitral annular calcification. 11. There is mild mitral valve stenosis. Moderate aortic stenosis less possible to cause syncope, but patient has CAD, risk of cardiogenic syncope Consult biofuels product development manager for evaluation treatment: Appreciate cardiology consultation, no further cardiac workup Colitis Past medical history of Crohn's disease Started metronidazole and rifaximin No evidence of diarrhea # anemia Hemoglobin dropped from 11.7 to 9.9 Patient takes clopidogrel, d/c Brilinta Home medication Rivaroxaban 2.5 mg p.o. b.i.d. cont Possible dilutional anemia Ordered FOBT: Negative Anemia panel LDH vitamin B12 and folate WNL CAD/PAD Multiple stents in her heart and bilateral lower extremity Patient is on aspirin, Plavix, Brilinta # hyperthyroidism Continue methimazole 10 mg p.o. q.d. # diabetes type 2 Hold home medication On sliding scale # hypokalemia Continuing home Potassium chloride 20 meq CORRECTED Left hip pain CT abdomen pelvis did not show hip fracture Consult PT OT disabilities caregiver for evaluation and assisting placement Consult PT OT to social organization professor for evaluation and assisting placement Subjective Date/time seen: 07/04/24 09:43 Interval history: Patient tolerated diet well, denies chest pain abdomen pain nausea vomiting diarrhea dysuria patient afebrile, blood pressure stable Exam Narrative: GENERAL: Pleasant, in no acute distress. Well-nourished. - EYES: EOMI. Anicteric. - HENT: Moist mucous membranes. - LUNGS: Clear to auscultation bilaterally, no wheezing, rhonchi, or rales. - CARDIOVASCULAR: Regular rate and rhythm. No murmur. No JVD. - ABDOMEN: Soft, non-tender and non-distended. No palpable masses. - EXTREMITIES: No edema. Peripheral pulses 2+. Non-tender. - NEUROLOGIC: No focal neurological deficits. CN II-XII grossly intact. - PSYCHIATRIC: Awake, Alert and oriented x 3. Appropriate mood and affect. - SKIN: No rashes or lesions. Warm. - LYMPH: No cervical lymphadenopathy. Objective Data Vital Signs Vital Signs: Vital Signs - 24 hr 07/03/24 14:00 07/03/24 15:16 07/03/24 20:00 Temperature 97.6 F Pulse Rate 60 Respiratory Rate 16 Blood Pressure 147/54 H Pulse Oximetry 100 Oxygen Delivery Room Air Room Air 07/03/24 21:49 07/04/24 06:00 07/04/24 08:10 Temperature 97.8 F 97.8 F Pulse Rate 63 68 74 Respiratory Rate 20 18 Blood Pressure 144/53 H 127/86 Pulse Oximetry 100 99 Oxygen Delivery Intake/Output Intake/Output: Intake & Output 07/01/24 07/02/24 07/03/24 07/04/24 23:59 23:59 23:59 23:59 Intake Total 1648 1830 1000 400 Output Total 2250 200 Balance -602 1630 1000 400 Meds/Results Medications: Active Medications Generic Name Dose Route Start Last Admin Trade Name Freq PRN Reason Stop Dose Admin Acetaminophen 1,000 mg 07/03/24 08:45 07/04/24 09:21 Acetaminophen 500 Mg Tablet PO 1,000 mg Q6H PRN Administration Mild Pain (1-3) or Fever Alprazolam 0.5 mg 06/30/24 08:13 07/02/24 21:00 Alprazolam (*Crx) 0.5 Mg Tablet PO 0.5 mg DAILY PRN Administration anxiety Amlodipine Besylate 5 mg 07/01/24 09:00 07/03/24 08:27 Amlodipine Besylate 5 Mg Tablet PO 5 mg DAILY YAHIR Administration Atorvastatin Calcium 20 mg 06/30/24 21:00 07/03/24 21:35 Atorvastatin 20 Mg Tablet PO 20 mg HS YAHIR Administration Buspirone HCl 2.5 mg 06/30/24 09:00 07/03/24 16:34 Buspirone Hcl 2.5 Mg Tablet PO 2.5 mg BID YAHIR Administration Calcium Carbonate 200 mg 07/01/24 22:39 07/03/24 08:34 Calcium Carbonate (Tums) 500 Mg (200 Mg Elemental) PO 200 mg TID PRN Administration Indigestion Cefdinir 300 mg 07/04/24 09:00 07/04/24 09:21 Cefdinir 300 Mg Capsule PO 07/06/24 21:01 300 mg Q12HR YAHIR Administration Clopidogrel Bisulfate 75 mg 06/30/24 09:00 07/04/24 08:09 Clopidogrel Bisulfate 75 Mg Tablet PO 75 mg DAILY YAHIR Administration Dextrose 12.5 gm 06/30/24 11:34 Dextrose 50% 25 Gm/50 Ml Syringe IV PUSH PRN PRN Hypoglycemia Protocol Dicyclomine HCl 20 mg 06/30/24 09:00 07/03/24 21:35 Dicyclomine Hcl 10 Mg Capsule PO 20 mg QID YAHIR Administration Glucose 15 gm 06/30/24 11:34 Glucose Oral Gel 15 Gm Of Glucse In 37.5 Gm Tube PO PRN PRN Hypoglycemia Protocol Hydromorphone HCl 0.5 mg 06/30/24 04:14 Hydromorphone Hcl Inj (*Crx) 1 Mg/Ml Syr IV PUSH Q4H PRN Pain Rated 7-10 Dextrose 1,000 mls @ 100 mls/hr 06/30/24 11:34 Dextrose 5% 1,000 Ml IVPB PRN PRN Hypoglycemia Protocol Insulin Aspart 2 - 5 units 06/30/24 12:00 07/04/24 08:10 Insulin Aspart (*Bkc) 100 Units/Ml SUB-Q Not Given TIDWM [facility] Protocol Lisinopril 10 mg 07/01/24 09:00 07/03/24 08:27 Lisinopril 10 Mg Tablet PO 10 mg DAILY YAHIR Administration Methimazole 10 mg 06/30/24 09:00 07/03/24 08:28 Methimazole 10 Mg Tab PO 10 mg DAILY YAHIR Administration Metoprolol Succinate 25 mg 06/30/24 09:00 07/03/24 08:28 Metoprolol Succinate Ext Rel 25 Mg Tabcr PO 25 mg DAILY YAHIR Administration Metronidazole 500 mg 07/03/24 22:00 07/03/24 21:34 Metronidazole 500 Mg Tablet PO 07/06/24 22:01 500 mg Q8HR YAHIR Administration Ondansetron HCl 4 mg 06/30/24 04:14 Ondansetron Inj 4 Mg/2 Ml Vial IV PUSH Q4H PRN Nausea Rivaroxaban 2.5 mg 07/01/24 10:30 07/03/24 16:34 Rivaroxaban 2.5 Mg Tablet PO 2.5 mg BID YAHIR Administration Sertraline HCl 100 mg 06/30/24 21:00 07/03/24 21:34 Sertraline Hcl 50 Mg Tablet PO 100 mg HS YAHIR Administration Radiology Results: ITS Impressions Chest X-Ray 06/29/24 21:36 IMPRESSION: No acute cardiopulmonary pathology. Abdomen/Pelvis CT 06/30/24 05:40 Impression: Findings consistent with extensive infectious/inflammatory colitis, as detailed above. Labs Labs: Laboratory Results - last 24 hr 07/03/24 07/03/24 07/03/24 08:58 10:38 11:29 WBC 6.4 RBC 3.87 L Hgb 9.6 L Hct 31.6 L MCV 81.7 MCH 24.8 L MCHC 30.4 L RDW 16.8 H Plt Count 242 MPV 9.3 Immature Gran % (Auto) 0.3 Neut % (Auto) 59.1 Lymph % (Auto) 23.3 [place] % (Auto) 11.2 H Eos % (Auto) 5.3 H Baso % (Auto) 0.8 Lymph # (Auto) 1.50 [place] # (Auto) 0.7 H Eos # (Auto) 0.3 Baso # (Auto) 0.1 Abs Immat Gran (auto) 0.02 Absolute Neuts (auto) 3.8 Absolute Nucleated RBC 0.000 Nucleated RBC % 0.0 Sodium Potassium Chloride Carbon Dioxide Anion Gap BUN Creatinine Estim Creat Clear Calc Estimated GFR Glucose POC Capillary Glucose 171 H Calcium Stl Occult Blood (IFOB) Negative 07/03/24 07/03/24 07/04/24 16:34 20:14 07:25 WBC 7.1 RBC 4.26 Hgb 10.7 L Hct 34.6 L MCV 81.2 MCH 25.1 L MCHC 30.9 L RDW 16.9 H Plt Count 307 MPV 9.1 Immature Gran % (Auto) 0.1 Neut % (Auto) 47.6 Lymph % (Auto) 35.7 [place] % (Auto) 9.8 H Eos % (Auto) 6.0 H Baso % (Auto) 0.8 Lymph # (Auto) 2.55 [place] # (Auto) 0.7 H Eos # (Auto) 0.4 H Baso # (Auto) 0.1 Abs Immat Gran (auto) 0.01 Absolute Neuts (auto) 3.4 Absolute Nucleated RBC 0.000 Nucleated RBC % 0.0 Sodium 138 Potassium 3.6 Chloride 110 H Carbon Dioxide 22 Anion Gap 6 BUN 12 Creatinine 1.10 H Estim Creat Clear Calc 37 Estimated GFR 48 L Glucose 140 H POC Capillary Glucose 144 H 207 H Calcium 9.6 Stl Occult Blood (IFOB) 07/04/24 08:05 WBC RBC Hgb Hct MCV MCH MCHC RDW Plt Count MPV Immature Gran % (Auto) Neut % (Auto) Lymph % (Auto) [place] % (Auto) Eos % (Auto) Baso % (Auto) Lymph # (Auto) [place] # (Auto) Eos # (Auto) Baso # (Auto) Abs Immat Gran (auto) Absolute Neuts (auto) Absolute Nucleated RBC Nucleated RBC % Sodium Potassium Chloride Carbon Dioxide Anion Gap BUN Creatinine Estim Creat Clear Calc Estimated GFR Glucose POC Capillary Glucose 148 H Calcium Stl Occult Blood (IFOB)
[2024-07-04 12:06] LABS: Glucose Point of Care 175 mg/dl (65-105)
[2024-07-04 14:58] VITALS: BP 141/50; PULSE 66; RESP 18; TEMP 36.5; O2SAT 99
--- NOTE | 2024-07-04 15:00 | P.DS_ITS ---
DS: Admitting Diagnosis Discharge Date 07/04 Admitting Diagnosis (1) Pancolitis: Code(s): K51.00 - Ulcerative (chronic) pancolitis without complications Status: Acute (2) Moderate aortic stenosis: Code(s): I35.0 - Nonrheumatic aortic (valve) stenosis Status: Acute (3) Syncope: Code(s): R55 - Syncope and collapse Status: Acute DS: Discharge Diagnosis Discharge Diagnosis (1) Pancolitis: Code(s): K51.00 - Ulcerative (chronic) pancolitis without complications Status: Acute (2) Moderate aortic stenosis: Code(s): I35.0 - Nonrheumatic aortic (valve) stenosis Status: Acute (3) Syncope: Code(s): R55 - Syncope and collapse Status: Acute DS: Summary Hospital Course Hospital Course: 78-year-old female with PMH of history of RODERICK, hyperlipidemia, hypothyroidism, CAD, GERD, CHF, hypertension , Crohn disease, brought to ED because of syncopal episode she went to the toilet to have a bowel movement and started to have a ?spasm of my colon. Syncope possibly secondary to dehydration, infectious, Continue Telemetry monitoring, no significant arrhythmia Echocardiogram showed Summary 1. Left ventricular chamber dimension is normal. 2. Left ventricular systolic function is normal, estimated at 65-70%. 3. There is mildly increased left ventricular wall thickness. 4. The left ventricular diastolic function is grade I diastolic dysfunction. 5. Right ventricular chamber dimension is normal. 6. Right ventricular systolic function is normal. 7. There is mild to moderate aortic valve regurgitation. 8. There is moderate aortic valve stenosis. 9. There is mild mitral valve regurgitation. 10. Moderate mitral annular calcification. 11. There is mild mitral valve stenosis. Moderate aortic stenosis less possible to cause syncope, but patient has CAD, risk of cardiogenic syncope Consult industrial welder for evaluation treatment: Appreciate cardiology consultation, no further cardiac workup Colitis Past medical history of Crohn's disease Received metronidazole and rifaximin No evidence of diarrhea Patient also has no abdomen pain no Chronic anemia Hemoglobin dropped from 11.7 to 9.9 Patient takes clopidogrel, d/c Brilinta Home medication Rivaroxaban 2.5 mg p.o. b.i.d. cont Possible dilutional anemia Ordered FOBT: Negative Anemia panel LDH vitamin B12 and folate WNL Stable CAD/PAD Multiple stents in her heart and bilateral lower extremity Patient is on aspirin, Plavix, Brilinta hyperthyroidism Continue methimazole 10 mg p.o. q.d. diabetes type 2 Hold home medication On sliding scale Resume home medication on discharge hypokalemia Continuing home Potassium chloride 20 meq CORRECTED Left hip pain CT abdomen pelvis did not show hip fracture Consult PT OT home care chaplain for evaluation and assisting placement. OT PT and coordinator evaluated patient, recommends to discharge patient home, self-care Time Spent with Patient Time attestation: Total time spent providing and/or coordinating discharge services: Exam Narrative: GENERAL: Pleasant, in no acute distress. Well-nourished. - EYES: EOMI. Anicteric. - HENT: Moist mucous membranes. - LUNGS: Clear to auscultation bilateral ly, no wheezing, rhonchi, or rales. - CARDIOVASCULAR: Regular rate and rhyth m. No murmur. No JVD. - ABDOMEN: Soft, non-tender and non-dist ended. No palpable masses. - EXTREMITIES: No edema. Peripheral puls es 2+. Non-tender. - NEUROLOGIC: No focal neurological defi cits. CN II-XII grossly intact. - PSYCHIATRIC: Awake, Alert and oriented x 3. Appropriate mood and affect. - SKIN: No rashes or lesions. Warm. - LYMPH: No cervical lymphadenopathy. DS: Data Data Completed and Pending Labs on day of discharge: Labs from last 24 hours 07/04/24 07/04/24 07/04/24 11:37 08:05 07:25 WBC 7.1 RBC 4.26 Hgb 10.7 L Hct 34.6 L MCV 81.2 MCH 25.1 L MCHC 30.9 L RDW 16.9 H Plt Count 307 MPV 9.1 Immature Gran % (Auto) 0.1 Neut % (Auto) 47.6 Lymph % (Auto) 35.7 Branch % (Auto) 9.8 H Eos % (Auto) 6.0 H Baso % (Auto) 0.8 Lymph # (Auto) 2.55 Branch # (Auto) 0.7 H Eos # (Auto) 0.4 H Baso # (Auto) 0.1 Abs Immat Gran (auto) 0.01 Absolute Neuts (auto) 3.4 Absolute Nucleated RBC 0.000 Nucleated RBC % 0.0 Sodium 138 Potassium 3.6 Chloride 110 H Carbon Dioxide 22 Anion Gap 6 BUN 12 Creatinine 1.10 H Estim Creat Clear Calc 37 Estimated GFR 48 L Glucose 140 H POC Capillary Glucose 175 H 148 H Calcium 9.6 07/03/24 07/03/24 20:14 16:34 WBC RBC Hgb Hct MCV MCH MCHC RDW Plt Count MPV Immature Gran % (Auto) Neut % (Auto) Lymph % (Auto) Branch % (Auto) Eos % (Auto) Baso % (Auto) Lymph # (Auto) Branch # (Auto) Eos # (Auto) Baso # (Auto) Abs Immat Gran (auto) Absolute Neuts (auto) Absolute Nucleated RBC Nucleated RBC % Sodium Potassium Chloride Carbon Dioxide Anion Gap BUN Creatinine Estim Creat Clear Calc Estimated GFR Glucose POC Capillary Glucose 207 H 144 H Calcium Discharge Plan Discharge Attending physician on discharge: Mitchell Singh Consulting providers: Susan Mcnally Discharging Clinician: Mitchell Singh Anticipated Discharge Date/Time: 07/04/24 15:03 Patient Disposition: Home, Self-Care Activity: as tolerated Diet: heart healthy and diabetic Patient Instructions: Antibiotic Form, Rivaroxaban (By mouth), Safe Use of Anticoagulants (DC) Patient Language: Slovak Stand Alone Forms: General Discharge Information Follow-up/Referrals: Ashlie,DIAN Bryant [Primary Care Provider] - (Patient needs to see primary care provider in 1 week) Discharge Medications: New cefdinir 300 mg Capsule 300 mg PO Q12HR Qty: 10 0RF metronidazole 500 mg Tablet 500 mg PO Q8HR Qty: 15 0RF Continued Brilinta 90 mg tablet 90 mg PO BID buspirone 5 mg tablet 2.5 mg PO BID sertraline 100 mg tablet 100 mg PO HS potassium chloride [Klor-Con M20] 20 mEq tablet,ER particles/crystals 20 meq PO DAILY methimazole 5 mg tablet 10 mg PO DAILY metoprolol succinate 25 mg tablet extended release 24 hr 25 mg PO DAILY Xarelto 2.5 mg tablet 2.5 mg PO BID dicyclomine 20 mg tablet 20 mg PO QID furosemide 40 mg tablet 40 mg PO QAM (DME) Comfort EZ Pen [place] 33 gauge x 5/16 needle See Rx Instructions .ROUTE .MEDSUPPLY Qty: 400 3RF Rx Instructions: four times daily atorvastatin 20 mg tablet 20 mg PO HS ezetimibe 10 mg tablet 10 mg PO DAILY icosapent ethyl [Vascepa] 1 gram capsule 2 g PO BID dapagliflozin propanediol [Farxiga] 10 mg tablet 10 mg PO DAILY clopidogrel 75 mg tablet 75 mg PO DAILY furosemide 20 mg tablet 20 mg PO HS alprazolam 0.5 mg tablet 0.5 mg PO DAILY PRN (Reason: anxiety) pantoprazole 40 mg tablet,delayed release (DR/EC) 40 mg PO DAILY Date of admission: 07/02/24 15:42 Primary Care Provider: AshlieAnnette Admitting Provider: Iwona Mcgill Attending physician on admission: Iwona Mcgill Condition: Stable
== END 2024-07-04 16:38 | disposition home or self-care (01) | DRG 387 ==
LOC: ANHED 06-30 04:19 → ANH3MEDSUR 06-30 05:18
PROVIDERS: Emergency Medicine; General Practice; Admitting Provider Internal Medicine; Emergency Provider Physician Assistant; PCP Nurse Practitioner Family; Visit Provider Hospitalist
DX: K51.00 Ulcerative (chronic) pancolitis without complications (principal); I50.9 Heart failure, unspecified; I11.0 Hypertensive heart disease with heart failure; I25.10 Atherosclerotic heart disease of native coronary artery without angina pectoris; I35.0 Nonrheumatic aortic (valve) stenosis; D50.9 Iron deficiency anemia, unspecified; E03.9 Hypothyroidism, unspecified; E11.51 Type 2 diabetes mellitus with diabetic peripheral angiopathy without gangrene; E78.5 Hyperlipidemia, unspecified; R55 Syncope and collapse; K21.9 Gastro-esophageal reflux disease without esophagitis; M79.7 Fibromyalgia; F41.9 Anxiety disorder, unspecified; F32.A Depression, unspecified; Z96.651 Presence of right artificial knee joint; Z79.01 Long term (current) use of anticoagulants; Z86.718 Personal history of other venous thrombosis and embolism; Z87.442 Personal history of urinary calculi; Z86.73 Personal history of transient ischemic attack (TIA), and cerebral infarction without residual deficits; Z92.82 Status post administration of tPA (rtPA) in a different facility within the last 24 hours prior to admission to current facility; Z95.820 Peripheral vascular angioplasty status with implants and grafts; Z95.1 Presence of aortocoronary bypass graft
CPT/HCPCS: 36415; 71046; 74177; 80048; 80053; 81001; 82274; 82607; 82728; 82746; 82948; 83010; 83540; 83550; 83615; 85025; 85027; 86880; 87045; 87086; 87427; 87449; 93005; 96361; 96365; 96375; 97161; 97165; 99285; A9270; C8929; G0378; J0696; J1171; J1836; J2405; J7030; J7040; Q9957; Q9967

== ENCOUNTER 2024-07-15 13:38 | Emergency (ER) | payer MEDICARE, MEDICAID, SELFPAY ==
--- NOTE | ~2024-07-15 | XR_ITS ---
XR chest 2V DATE: 07/15/2024 14:47 INDICATION: Cough, shortness of breath TECHNIQUE: 2 views COMPARISON: 06/29/2024 AP and lateral chest FINDINGS: Heart size is normal. Status post sternotomy. Coronary artery calcification and/or stent. A ortic arch and descending thoracic aortic calcification. No hilar or mediastinal enlargement. Electronic device is noted within the subcutaneous tissues at th e lower anteromedial chest. No pulmonary infiltrate or consolidation, pleural effusion or pulmonary vascular congestion or pneumo thorax is detected. Surgical clips, right upper quadrant consistent with cholecystectomy. There is dextroscoliosis and degenerative spurring of the thoracic spine. Status post vertebroplasty at L1. Bilateral old healed rib fractures. IMPRESSION: Status post sternotomy Coronary atherosclerosis and/or coronary stents Aortic atherosclerosis No active cardiopulmonary disease Status post vertebroplasty at L1 Scoliosis and degenerative spurring of the thoracic spine Bilateral old healed rib fractures Reviewed, dictated and finalized at location [facility]. [facility]
[2024-07-15 13:45] VITALS: BP 155/66; PULSE 95; RESP 16; TEMP 36.9; O2SAT 100
--- NOTE | 2024-07-15 14:28 | ED.URI ---
HPI - URI/Sore Throat General Chief Complaint: Upper Respiratory Infection Stated Complaint: Sinus Time Seen by Provider: 07/15/24 14:29 Source: patient Mode of arrival: ambulatory Limitations: no limitations History of Present Illness HPI Narrative: 78 yo F presents with c/o sinus congestion, sinus pressure/pain, headaches for 2 wks. Was recently admitted for ulcerative colitis issues but was given 5 days of cefidinir for sinsues and not helping. Afebrile. Reports mild cough. Taking benzonotate. No shortness breath or chest pain. all systems reviewed and negative except as noted above. Related Data Home Medications ?Medication ?Instructions ?Recorded ?Confirmed ?Last Taken ?Type atorvastatin 20 mg tablet 20 mg PO HS 09/26/19 06/30/24 07/29/22 History dapagliflozin propanediol 10 mg 10 mg PO DAILY 09/18/20 06/30/24 07/29/22 History tablet (Farxiga) ezetimibe 10 mg tablet 10 mg PO DAILY 09/18/20 06/30/24 07/29/22 History icosapent ethyl 1 gram capsule 2 g PO BID 09/18/20 06/30/24 07/29/22 History (Vascepa) pantoprazole 40 mg tablet,delayed 40 mg PO DAILY 10/03/20 06/30/24 07/29/22 History release dicyclomine 20 mg tablet 20 mg PO QID 04/23/21 06/30/24 07/29/22 History furosemide 40 mg tablet 40 mg PO QAM 04/23/21 06/30/24 07/29/22 History ticagrelor 90 mg tablet (Brilinta) 90 mg PO BID 05/03/21 06/30/24 07/29/22 History buspirone 5 mg tablet 2.5 mg PO BID 04/02/22 06/30/24 07/29/22 History methimazole 5 mg tablet 10 mg PO DAILY 04/02/22 06/30/24 07/29/22 History metoprolol succinate 25 mg 25 mg PO DAILY 04/02/22 06/30/24 07/29/22 History tablet,extended release 24 hr potassium chloride 20 mEq 20 meq PO DAILY 04/02/22 06/30/24 07/29/22 History tablet,extended release(part/cryst) (Klor-Con M) sertraline 100 mg tablet 100 mg PO HS 04/02/22 06/30/24 07/29/22 History rivaroxaban 2.5 mg tablet (Xarelto) 2.5 mg PO BID 01/29/23 06/30/24 Unknown History alprazolam 0.5 mg tablet 0.5 mg PO DAILY PRN anxiety 06/30/24 06/30/24 Unknown History clopidogrel 75 mg tablet 75 mg PO DAILY 06/30/24 06/30/24 Unknown History furosemide 20 mg tablet 20 mg PO HS 06/30/24 06/30/24 Unknown History Allergies Allergy/AdvReac Type Severity Reaction Status Date / Time ranolazine Allergy Intermediate Unknown Verified 07/15/24 13:55 gabapentin Allergy Mild Confusion Verified 07/15/24 13:55 cyclobenzaprine Allergy Unknown Unknown Verified 07/15/24 13:55 fentanyl Allergy Unknown Unknown Verified 07/15/24 13:55 ciprofloxacin (From Cipro) Allergy Unknown Verified 07/15/24 13:55 doxycycline Allergy Unknown Verified 07/15/24 13:55 Penicillins Allergy Anaphylaxis Verified 07/15/24 13:55 Review of Systems Review of Systems: CONSTITUTIONAL: Denies fever, chills, or sweats. reports fatigue. EYES: Denies visual changes, redness, or discharge. ENT: Reports rhinorrhea, congestion, sinus pressure, sinus headaches, postnasal drainage. Denies sore throat, or otalgia. CARDIOVASCULAR: Denies chest pain, palpitations, or edema. RESPIRATORY: reports cough. Denies dyspnea. GASTROINTESTINAL: Denies abdominal pain, nausea, vomiting, or diarrhea. GENITOURINARY: Denies dysuria or hematuria. SKIN: Denies rash or itching. MUSCULOSKELETAL: Denies back pain, joint pain . Reports myalgia. NEUROLOGIC: Denies headache, numbness, or weakness. PSYCHIATRIC: Denies anxiety or depression. All other systems reviewed are negative, except as documented in HPI. [facility] Past Medical History Medical History Anemia Anxiety Back contusion Back pain CAD (coronary artery disease) Cataracts, bilateral CHF (congestive heart failure) Colitis Crohn's disease Depression Depression with anxiety Diabetes mellitus DVT (deep venous thrombosis) Fibromyalgia Gastrointestinal ulcer GERD (gastroesophageal reflux disease) History of angina HLD (hyperlipidemia) HTN (hypertension) Hypothyroidism IBS (irritable bowel syndrome) Kidney stones TIA (transient ischemic attack) UTI (urinary tract infection) Surgical History Surgical History H/O cataract extraction H/O heart artery stent History of bladder surgery History of hysterectomy History of loop recorder History of right knee joint replacement Hx of appendectomy Hx of CABG Hx of cardiac catheterization Hx of cholecystectomy Hx of spinal surgery S/P peripheral artery angioplasty with stent placement Family History Family History Father Cerebrovascular accident, Onset Age: 62 Family history of coronary artery disease Family history of alcoholism Acute myocardial infarction, Onset Age: 62 Patient's father is Mother Cerebrovascular accident, Onset Age: 84 Family history of coronary artery disease Family history of diabetes mellitus in first degree relative Asthma Family history of congestive heart failure Family history of heart disease in male family member before age 55 Diabetes mellitus, Onset Age: 84 Family history of gastrointestinal disorder, Onset Age: 84 Family history of cardiovascular disease, Onset Age: 84 Patient's mother is Sibling Family history of thyroid disease Diabetes mellitus Carcinoma of colon Patient's sister is Other Family history of kidney disease Hypertension Social History Social History Social History: Lives at home with her , grandson. Lifelong nonsmoker. Denies alcohol or drug use. Full code. 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 Lifelong nonsmoker. Does not use any alcohol marijuana or illicit drugs. Her oldest daughter Eli is a durable power deputy prosecuting attorney for healthcare Code status full code Smoking status: Never smoker Second hand tobacco smoke exposure: No Alcohol intake: never Substance use: never Substance use type: does not use Do You Feel Safe in your Home?: Yes Lack of Transportation: No Lack of Food: Never True Current Housing: I Have Housing Concerned About Future Housing: No Difficulty Paying Gas/Electric Bills: No Difficulty Paying for Meds: No Currently Unemployed: No Education: Decline to Answer Difficulty w/ Childcare or Family Care: No Gender identity (if verbalized by the patient): Female Sexual Orientation (if Verbalized by the Patient): Straight or Heterosexual Spiritual care concerns: No Comments At time of signature, agree with nursing past medical, surgical, social and family history. There is no relevant family history pertinent to the presenting complaint. Exam Narrative: GENERAL: This is a well-nourished, well-developed patient, in no apparent distress. HEAD: normocephalic, atraumatic. EYES: PERRL. Sclera clear/white. Vision is grossly intact. EARS: External ears normal, auditory canals clear and without drainage, TMs normal without perforation. Hearing grossly intact. NOSE: External nose normal with moderate congestion, purulent nasal drainage, maxillary sinus tenderness on palpation bilaterally THROAT: Mucous membranes moist, erythema postnasal drainage NECK: Neck supple, non-tender without lymphadenopathy, masses or thyromegaly. CARDIOVASCULAR: Regular rate and rhythm without murmurs, gallops, or rubs. RESPIRATORY: Clear to auscultation. Breath sounds equal bilaterally. No wheezes, rales, or rhonchi. SKIN: warm, Dry, intact with no suspicious lesions or rash, good texture and turgor. NEURO: awake, alert, and oriented to person, place and time. There were no obvious focal neurologic abnormalities. EXTREMITIES: No joint tenderness, effusion, or edema noted. Course Course Level of Care: Express Care Visit Vital Signs Vital signs: Vital Signs Temperature 36.9 C 07/15/24 13:45 Pulse Rate 95 07/15/24 13:45 Respiratory Rate 16 07/15/24 13:45 Blood Pressure 155/66 H 07/15/24 13:45 Pulse Oximetry 100 07/15/24 13:45 Oxygen Delivery Room Air 07/15/24 13:45 Temperature 36.9 C 07/15/24 13:45 Pulse Rate 95 07/15/24 13:45 Respiratory Rate 16 07/15/24 13:45 Blood Pressure 155/66 H 07/15/24 13:45 Pulse Oximetry 100 07/15/24 13:45 Oxygen Delivery Room Air 07/15/24 13:45 reviewed MDM - URI/Sore Throat MDM Narrative Medical decision making narrative: chest x-ray negative for pneumonia. Will treat patient with antibiotic for bacterial sinusitis due to duration of symptoms and exam findings. Patient well-appearing, nontoxic. Patient is aware of diagnosis, understands and agrees to treatment plan. Anticipatory guidance given. Patient agrees to follow-up as directed and is aware of reasons to seek care at the emergency department. Portions of this record may have been created with voice recognition software Imaging Data My impression: Agree with radiologist Radiologist's impression: XR chest 2V DATE: 07/15/2024 14:47 INDICATION: Cough, shortness of breath TECHNIQUE: 2 views COMPARISON: 06/29/2024 AP and lateral chest FINDINGS: Heart size is normal. Status post sternotomy. Coronary artery calcification and/or stent. Aortic arch and descending thoracic aortic calcification. No hilar or mediastinal enlargement. Electronic device is noted within the subcutaneous tissues at the lower anteromedial chest. No pulmonary infiltrate or consolidation, pleural effusion or pulmonary vascular congestion or pneumothorax is detected. Surgical clips, right upper quadrant consistent with cholecystectomy. There is dextroscoliosis and degenerative spurring of the thoracic spine. Status post vertebroplasty at L1. Bilateral old healed rib fractures. IMPRESSION: Status post sternotomy Coronary atherosclerosis and/or coronary stents Aortic atherosclerosis No active cardiopulmonary disease Status post vertebroplasty at L1 Scoliosis and degenerative spurring of the thoracic spine Bilateral old healed rib fractures Discharge Plan Discharge Clinical Impression: Acute bacterial sinusitis Patient Disposition: Home, Self-Care Condition: Stable Instructions: Antibiotic Form, Sinusitis (ED) Additional Instructions: Your chest x-ray was negative for pneumonia. Take medications as prescribed. Drink at least 64 ounces of water a day. Place cool mist humidifier in bedroom where you sleep. See your doctor if symptoms not improving. Patient Language: Malay Prescriptions: New clindamycin HCl 300 mg capsule 300 mg PO Q8H 7 Days Qty: 21 0RF methylprednisolone [Medrol (Rene)] 4 mg tablets,dose pack See Rx Instructions PO .COMPLEX Qty: 21 0RF Rx Instructions: orally per package directions No Action Brilinta 90 mg tablet 90 mg PO BID buspirone 5 mg tablet 2.5 mg PO BID sertraline 100 mg tablet 100 mg PO HS potassium chloride [Klor-Con M20] 20 mEq tablet,ER particles/crystals 20 meq PO DAILY methimazole 5 mg tablet 10 mg PO DAILY metoprolol succinate 25 mg tablet extended release 24 hr 25 mg PO DAILY Xarelto 2.5 mg tablet 2.5 mg PO BID dicyclomine 20 mg tablet 20 mg PO QID furosemide 40 mg tablet 40 mg PO QAM (DME) Comfort EZ Pen [place] 33 gauge x 5/16 needle See Rx Instructions .ROUTE .MEDSUPPLY Qty: 400 3RF Rx Instructions: four times daily atorvastatin 20 mg tablet 20 mg PO HS ezetimibe 10 mg tablet 10 mg PO DAILY icosapent ethyl [Vascepa] 1 gram capsule 2 g PO BID dapagliflozin propanediol [Farxiga] 10 mg tablet 10 mg PO DAILY clopidogrel 75 mg tablet 75 mg PO DAILY furosemide 20 mg tablet 20 mg PO HS alprazolam 0.5 mg tablet 0.5 mg PO DAILY PRN (Reason: anxiety) pantoprazole 40 mg tablet,delayed release (DR/EC) 40 mg PO DAILY Follow-up/Referrals: Ashlie,DIAN Bryant [Primary Care Provider] - Time of Disposition: 15:29
== END 2024-07-15 15:40 | disposition home or self-care (01) ==
PROVIDERS: Emergency Provider Nurse Practitioner Family; PCP Nurse Practitioner Family
DX: J01.90 Acute sinusitis, unspecified (principal); B97.89 Other viral agents as the cause of diseases classified elsewhere; I25.10 Atherosclerotic heart disease of native coronary artery without angina pectoris; I11.0 Hypertensive heart disease with heart failure; I50.9 Heart failure, unspecified; E11.9 Type 2 diabetes mellitus without complications
CPT/HCPCS: 71046; 99213; G0463

== ENCOUNTER 2024-09-05 17:01 | Emergency (ER) | payer MEDICARE, MEDICAID, SELFPAY ==
--- OUTSIDE RECORDS SUMMARY | 2024-09-05 17:05 | XMS_ITS | Continuity of Care Document ---
Author Organization [facility] Address [address] [place] [id number] Insurance Providers Payer Plan Claims Address Claims Phone Policy Number Group Number Relation Employer Guarantor Name Guarantor Guarantor Address Guarantor Phone [employer], [address], [place] [address] tel:[phone] Self Regenia D Rawls 1945 [address] [place] [address] [employer] [address], [place] [address] tel:[phone] Self Regenia D Rawls 1945 [address] [place] [address] [facility] MEDICA RE [address] [employer] MED[employer] ARE [address] [address], [place] [address] tel:[phone] [id number] Self Regenia D Rawls [address] [place] [address] Problems Condition ICD9 code ICD10 code SNOMED code Start Date End Date S tatus Ulcerative (chronic) pancolitis without complications K51.00 Ulcerative (chronic) pancolitis without complications K51.00 Nonrheumatic aortic (valve) stenosis I35.0 Nonrheumatic aortic (valve) stenosis I35.0 Ulcerative (chronic) pancolitis without complications K51.00 Results No Results Allergies, adverse reactions, alerts No known allergies and adverse reactions Medications No administered medications reported Vital Signs No vital signs reported Social History No smoking Hx information available
--- OUTSIDE RECORDS SUMMARY | 2024-09-05 17:05 | XMS_ITS | Clinical Summary ---
Author Organization [facility] Address [address] [place] [address] Care Team Providers Care Car Detailer Name Role Phone Venkatesh Sullivan MD Primary Care Provider [phone] Source Comments [facility],non-owned Affiliates and Associated Physician Practices is amultiple site organization consisting of ambulatory clinics and hospital sitesin [place], [place], [place] and [place]. This disclosure is being madepursuant to the Care Everywhere program and may not contain all information available regarding this patient. Last updated 18.[facility] Heroic Allergies Active Allergy Reactions Criticality Noted Date Comments Contrast-Iodinated Agents Fo r Ct/Other 09/14/2011 Old ivp dye from 2104-4757's. No trouble with IV DYE from recent cardiac caths Cyclobenzaprine 09/14/2011 Penicillins 09/14/2011 Ranexa 09/14/2011 Medications * Be aware that medications may not be up to date on this document. Alwaysverify current medications with the patient. Medication Sig Dispensed Refills Start Date End Date Status aspirin EC (ECOTRIN) 325 MG tablet Take 325 mg by mouth once daily. Active ezetimibe-simvasta tin (VYTORIN) 10-40 MG tablet Take 1 Tab by mouth at bedtime. Active diltiazem SR 24hr (DILACOR XR) 180 MG capsule Take 180 mg by mouth once daily. Active metoprolol succinate XL 24hr (TOPROL XL) 100 MG tablet Take 100 mg by mouth once daily. Active clopidogrel (PLAVIX) 75 MG tablet Take 75 mg by mouth once daily. Active lisinopril (PRINIVIL; ZESTRIL) 40 MG tablet Take 40 mg by mouth once daily. Active furosemide (LASIX) 40 MG tablet Take 40 mg by mouth once daily. Active insulin detemir (LEVEMIR) injection Inject 52 Units subcutaneously 2 times daily. Active B Zhvnocp-G-Iooqs Acid (VITAMIN B COMPLEX WITH C) TABS Take 1 Tab by mouth once daily. Active [place]-3 Fatty Acids (FISH OIL) 300 MG CAPS Take 3 Caps by mouth. Ac tive ALPRAZolam (XANAX) 0.5 MG tablet Take 0.5 mg by mouth 3 times daily as needed. Activ e amitriptyline (ELAVIL) 50 MG tablet Take 50 mg by mouth every evening. Active glipiZIDE (GLUCOTROL) 5 MG tablet Take 5 mg by mouth daily before breakfast. Active potassium chloride 40 MEQ/15ML (20%) solution Take 40 mEq by mouth 2 times daily. Active magnesium oxide (MAG-OX) 400 MG tablet Take 400 mg by mouth once daily. Active montelukast (SINGULAIR) 10 MG tablet Take 10 mg by mouth once daily. Active nitroglycerin (NITROLINGUAL) 0.4 MG/SPRAY spray Dissolve 1 [place] under the tongue every 5 minutes as needed. Active hydrocodone-acetam inophen (NORCO) 10-325 MG tablet Take 1 Tab by mouth every 6 hours as needed. Active Family History Medical History Relation Name Comments Stroke Father Diabetes Mother Heart Failure Mother Cancer Sister Hypertension Sister Relation Name Status Comments Father Mother Sister Alive Social History Tobacco Use Types Packs/Day Years Used Date Smoking Tobacco: Never Tobacco Cessation:Counseling Given: Yes Alcohol Use Standard Drinks/Week Comments No 0 (1 standard drink = 0.6 oz pur e alcohol) Sex and Gender Information Value Date Recorded Sex Assigned at Not on file Gender Identity Not on file Sexual Orientation Not on file Last Filed Vital Signs Vital Sign Reading Time Taken Comments Blood Pressure 151/91 03/17/2016 2:45 PM CDT Pulse 111 03/17/2016 2:45 PM CDT Temperature 36.3 C (97.4 F) 03/17/2016 2:45 PM CDT Respiratory Rate 16 03/17/2016 2:45 PM CDT Oxygen Saturation 96% 01/03/2016 3:15 PM CDT Inhaled Oxygen Concentration - - Weight 98 kg (216 lb) 10/05/2016 2:38 PM CDT Height 157.5 cm (5' 2 ) 10/05/2016 2:38 PM CDT Body Mass Index 39.51 10/05/2016 2:38 PM CDT Plan of Treatment Health Maintenance Due Date Last Done Comments BONE DENSITY TESTING 1945 HEPATITIS C SCREENING 10/06/1963 DTAP/TDAP/TD VACCINES (1 - Tdap) 1964 PNEUMOCOCCAL VACCINE 50+ (1 of 1 - PCV) 10/11/1995 ZOSTER VACCINE (1 of 2) 10/11/1995 Respiratory Syncytial Virus (RSV) Vaccine Pt: or over 60 yrs (1 - 1-dose 75+ series) 2020 COVID-19 VACCINE ( - 2023-2 5 season) 2024 INFLUENZA VACCINE (#1) 2024 DEPRESSION SCREENING 07/26/2024 MEDICARE AWV CALENDAR YEAR 2024 HEPATITIS B VACCINE Aged Out No longe r eligible based on patient's age to complete this topic HIB VACCINE Aged Out No longer eligi ble based on patient's age to complete this topic HPV VACCINE Aged Out No longer eligi ble based on patient's age to complete this topic MENINGOCOCCAL (Group B) VACCINE Aged Out No longer eligible based on patient's age to complete this topic MENINGOCOCCAL VACCINE Aged Out No nisa chun eligible based on patient's age to complete this topic Advance Directives * FULL RESUSCITATION (Latest Code Status on File) Date Activated Date Inactivated Comments 02/16/2012 7:25 PM 02/17/2012 12:59 PM * FULL RESUSCITATION Date Activated Date Inactivated Comments 09/14/2011 3:50 PM 09/16/2011 12:16 AM Care Teams Car Detailer Relationship Specialty Start Date End Date Venkatesh Sullivan MD [address] [place] [address] [address] [place], [place] [id number] PCP - General 01/13/18
--- OUTSIDE RECORDS SUMMARY | 2024-09-05 17:05 | XMS_ITS | Referral Summary ---
Author Organization [facility] Address [address] [place] [address] Care Team Providers Care Braille Translator Name Role Phone Venkatesh Sullivan MD Primary Care Provider [phone] Source Comments [facility],non-owned Affiliates and Associated Physician Practices is amultiple site organization consisting of ambulatory clinics and hospital sitesin [place], [place], [place] and [place]. This disclosure is being madepursuant to the Care Everywhere program and may not contain all information available regarding this patient. Last updated 18.[facility] Allergies Active Allergy Reactions Criticality Noted Date Comments Contrast-Iodinated Agents Fo r Ct/Other 09/14/2011 Old ivp dye from 1147-5195's. No trouble with IV DYE from recent [...] Units subcutaneously 2 times daily. Active B Qiqptog-L-Ubzns Acid (VITAMIN B COMPLEX WITH C) TABS Take 1 Tab by mouth once daily. Active [place]-3 Fatty Acids (FISH OIL) 300 MG CAPS [...] nitroglycerin (NITROLINGUAL) 0.4 MG/SPRAY spray Dissolve 1 [place] under the tongue every 5 minutes as needed. Active hydrocodone-acetam inophen (NORCO) 10-325 MG tablet Take 1 Tab by mouth every 6 hours as needed. Active Social History Tobacco Use Types Packs/Day Years [...] 10/05/2016 2:38 PM CDT Plan of Treatment Not on file Advance Directives * FULL RESUSCITATION (Latest Code Status on File) Date Activated Date Inactivated Comments 02/16/2012 7:25 PM 02/17/2012 12:59 PM * FULL RESUSCITATION Date Activated Date Inactivated Comments 09/14/2011 3:50 PM 09/16/2011 12:16 AM Care Teams Braille Translator Relationship Specialty Start Date End Date Venkatesh Sullivan MD [facility] [address] [address] PCP - General 01/13/18
--- OUTSIDE RECORDS SUMMARY | 2024-09-05 17:05 | XMS_ITS | Encounter Summary ---
Author Organization [facility] Address [address] [place] [address] Care Team Providers Care Tin Pourer Name Role Phone Murphy Diaz MD, Shade Monson Unavailable [phone] Juanpablo Reinoso MD Unavailable Ritesh Guardado MD Unavailable Duke Dunlap MD Unavailable [phone] Venkat Laguerre MD Unavailable Annette Dailey NP Primary Care Provider [phone] Jam Le MD Unavailable [phone] Miscellaneous, Not In File Unavailable Unava ilable Reason for Visit * Reason Onset Date Comments Hypertension 09/05/2024 Encounter Details Date Type Department Care Team (Late st Contact Info) Description 09/05/[address] [facility] [address] [place] [address] Annette Dailey NP [address] [place] [address] Social History Tobacco Use Types Packs/Day Years Used Date Smoking Tobacco: Never Smokeless Tobacco: Never Alcohol Use Standard Drinks/Week Comments Not Currently 0 (1 standard drink = 0.6 oz pur e alcohol) [facility] Utilities Answer Date Recorded In the past 12 months has th e electric, gas, oil, or water company threatened to shut off services in your home? No 11/18/2023 Social Connection and Isolat ion Panel [NHANES] Answer Date Recorded In a typical week, how many times do you talk on the phone with family, friends, or neighbors? More than three times a week 11/18/2023 How often do you get togethe r with friends or relatives? More than three times a week 11/18/2023 How often do you attend chur ch or yazidi services? 1 to 4 times per year 11/18/2023 Do you belong to any clubs o r organizations such as denominational groups, unions, fraternal or athletic groups, or school groups? No 11/18/2023 How often do you attend meet ings of the clubs or organizations you belong to? Never 11/18/2023 Are you , , di vorced, , never , or living with a partner? 11/18/2023 AUDIT-C Answer Date Recorded Q1: How often do you have a drink containing alc ohol? Never 07/07/2023 Average Number of Drinks Not on file 023 Frequency of Binge Drinking Not on file 06/25 Overall Financial Resource Strain (CARDIA) Answe r Date Recorded How hard is it for you to pa y for the very basics like food, housing, medical care, and heating? Not hard at all 11/18/2023 PHQ-2 Answer Date Recorded PHQ-2 Total Score (If total score is 3 or more points, staff should administer the PHQ-9) 0 02/14/2024 Hunger Vital Sign Answer Date Recorded Within the past 12 months, y ou worried that your food would run out before you got the money to buy more. Never true 11/18/19 24 Within the past 12 months, t he food you bought just didn't last and you didn't have money to get more. Never true 11/18/2023 PRAPARE - Transportation Answer Date Re corded In the past 12 months, has l ack of transportation kept you from medical appointments or from getting medications? No 10/25 In the past 12 months, has l ack of transportation kept you from meetings, work, or from getting things needed for daily living? No 11/18/2023 Housing Stability Vital Sign Answer Cordell e Recorded In the last 12 months, was t here a time when you were not able to pay the mortgage or rent on time? No 11/18/2023 In the last 12 months, how many places have you lived? 1 11/18/2023 In the last 12 months, was t here a time when you did not have a steady place to sleep or slept in a fpc (including now)? No 11/18/2023 Personal Safety Answer Date Recorded Have you ever been in or are you currently in a harmful physical or emotional relationship or is someone making you feel afraid or unsafe? 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 States she was near LOC. Has been having spells since June. States she is scheduled to have her loop reader replaced with a defibrillator later this month. Statesthe episodes have been worsening. This was the worst yet. BP 178/73, HR 112. States her hearing waslike she was on a plane. Vision is starting to improve. States she was been very unsteady. Encouraged Alejandrinaramya to call back with worsening sx. helper animal laboratory recommends ED Now. Ms. Rawls verbalizes understanding. She will have another person drive. Routing as an FYI. Reason for Disposition Systolic BP >= 160 OR Diastolic >= 100, and any cardiac (e.g., breathing difficulty, chest pain) or neurologic symptoms (e.g., new-onset blurred or double vision) Protocols used: Blood Pressure - [id number] CHING MACHINE OPERATOR * Telephone Encounter - Sheyla Skinner RN - 09/05/2024 3:33 PM CST Regarding: dizzy and higher blood pressure ----- Message from Ira Vonda sent at 09/05/2024 3:27 PM BROACHING MACHINE OPERATOR ----- Symptom Based Call Chief Complaint(s): dizzy, blood pressure 178/73 and hr 112, becomes hard to hear Duration: now What type of symptom(s) is the patient experiencing? Red Flag. Is the patient concerned they are experiencing a medical emergency requiring an ambulance? No Additional Comments: Patient was trying to go get lab work done for upcoming appointment when this episode occurred. Does message need to be routed? Yes-Action Needed CHING MACHINE OPERATOR documented in this encounter Plan of Treatment Not on file documented as of this encounter Visit Diagnoses Not on filedocumented in this encounter Care Teams Tin Pourer Relationship Specialty Start Date End Date Annette Dailey NP [address] [address] [facility] [address] [place] [address] PCP - General Internal Medicine 11/23/22 Shade Arrington Jr., MD [address] [place] [address] Consulting Physician Cardiovascular Disease 09/07/20 Juanpablo Reinoso MD [address] [place] [address] Consulting Physician Cardiovascular Disease 12/13/20 Ritesh Guardado MD [address] [place] [address] Referring Physician Cardiovascular Disease 12/26/20 [place] [address] [facility] [address] [place] [address] Surgeon Orthopedic Surgery 12/26/20 [place] [address] [address] Consulting Physician Gastroenterology 12/26/20 Jam Le MD [address] [place] [address] Consulting Physician Cardiology 11/29/23 Miscellaneous, Not In File 11/29/23 documented as of this encounter
--- OUTSIDE RECORDS SUMMARY | 2024-09-05 17:05 | XMS_ITS | Clinical Summary ---
Author Organization [facility] Address [address] [address] Care Team Providers Care Human Resources Trainee Name Role Phone Unavailable Primary Care Provider Unavailabl e Allergies Active Allergy Reactions Criticality Noted Date Comments Cyclobenzaprine Palpitations Low 09/14/2011 Dabigatran Etexilate Mesylate Palpitations,Shortness of Breath/Wheezing High 08/21/2015 Fentanyl Citrate Itching Low 01/01/2016 Gabapentin Other (See Comments) Low 09/05/2020 UNKNOWN Penicillins Unknown High 10/22/2008 Ranolazine Anxiety High 09/14/2011 Medications atorvastatin (LIPITOR) 20 mg tablet Take 20 mg by mouth daily. 2 Active metoprolol succinate (TOPROL XL) 25 mg Extended Release 24 hour tablet TAKE 1 TABLET BY MOUTH EVERY DAY DIRECTED 2 Active sertraline (ZOLOFT) 100 mg tablet Take 100 mg by mouth daily. 2 Active Farxiga 10 mg Tablet Take 10 mg by mouth daily. 2 Active ezetimibe (ZETIA) 10 mg tablet Take 10 mg by mouth daily. 2 Active insulin aspart U-100 (NovoLOG) 100 unit/mL pen syringe Inject by subcutaneous injection. Active insulin glargine (LANTUS) 100 unit/mL pen syringe Inject 30 Units by subcutaneous injection daily at bedtime. 1 Active lancets (Ultra Thin Lancets) 31 gauge TEST 4 TIMES A DAY 1 Active Ozempic 0.25 mg or 0.5 mg(2 mg/1.5 mL) Pen Injector PLEASE SEE ATTACHED FOR DETAILED DIRECTIONS 2 Active Xarelto 2.5 mg Tablet TAKE 1 TAB BY MOUTH TWICE A DAY TO REDUCE RISK OF CV , SC, OR STROKE IN PATIENTS W/ CAD OR PAD 2 Active pantoprazole (PROTONIX) 40 mg Tablet, Delayed Release (E.C.) Take 1 Tablet by mouth daily. 2 Active montelukast (SINGULAIR) 10 mg tablet Take 10 mg by mouth daily. Active doxycycline hyclate (VIBRAMYCIN) 100 mg capsule 2 Active busPIRone (BUSPAR) 7.5 mg Tablet Take 7.5 mg by mouth. Active dicyclomine (BENTYL) 20 mg tablet TAKE 1 TABLET BY MOUTH FOUR TIMES A DAY BEFORE MEALS AND NIGHTLY 2 Active ALPRAZolam (XANAX) 0.5 mg tablet TAKE 1 TABLET BY MOUTH TWICE A DAY NEEDED FOR ANXIETY 2 Active Active Problems No known active problems Family History Medical History Relation Name Comments No Known Problems Daughter 1 No Known Problems Daughter 2 No Known Problems Daughter 3 No Known Problems Daughter 4 Heart Disease Father Diabetes Mother Heart Disease Mother Diabetes Sister 6 sisters Stomach Cancer Sister 6 sisters No Known Problems Son Relation Name Status Comments Daughter 1 Alive Daughter 2 Daughter 3 Alive Daughter 4 Alive Father Mother Sister 6 sisters Son Alive Social History Tobacco Use Types Packs/Day Years Used Date Smoking Tobacco: Never Smokeless Tobacco: Never Tobacco Cessation:Counseling Given: Not Answered Alcohol Use Standard Drinks/Week Comments Never 0 (1 standard drink = 0.6 oz pur e alcohol) Comments Unknown Sex and Gender Information Value Date Recorded Sex Assigned at Not on file Legal Sex Female 9:44 AM CDT Gender Identity Not on file Sexual Orientation Not on file Last Filed Vital Signs Vital Sign Reading Time Taken Comments Blood Pressure 106/46 06/30/2023 2:23 PM REAL ESTATE INSPECTOR Pulse 76 08/20/2022 9:30 AM REAL ESTATE INSPECTOR Temperature 36.1 C (97 F) 06/30/2023 2:23 PM REAL ESTATE INSPECTOR Respiratory Rate 10 06/30/2023 2:23 PM REAL ESTATE INSPECTOR Oxygen Saturation 96% 06/30/2023 2:23 PM REAL ESTATE INSPECTOR Inhaled Oxygen Concentration - - Weight 75.3 kg (166 lb) 06/30/2023 2:23 PM REAL ESTATE INSPECTOR Height 157.5 cm (5' 2 ) 07/16/2022 10:21 AM REAL ESTATE INSPECTOR Body Mass Index 30.36 07/16/2022 10:21 AM REAL ESTATE INSPECTOR Plan of Treatment Health Maintenance Due Date Last Done Comments DIABETES ANNUAL RETINAL EXAM 10/11/1963 DIABETES MICROALBUMIN ANNUAL SCREEN 10/11/1963 LDL CHOLESTEROL ANNUAL 10/11/1963 ZOSTER VACCINE (1 of 2) 10/11/1995 OSTEOPOROSIS SCREENING 2010 RSV VACCINE (60+ or ) (1 - 1-dose 75+ series) 2020 DIABETES ANNUAL FOOT EXAM 03/31/2023 03/31/2022 DIABETES HBA1C Q 6 MONTHS 11/12/20232022, 08/06/2022, 03/25/2022 INFLUENZA VACCINE (#1) 2024 , 07/08/2022, 09/21/2019, Additional history exists DTAP/TDAP/TD VACCINES (2 - T d or Tdap) 09/30/2030 09/30/2020 COLORECTAL SCREENING Discontinued 12/17/2020 Colorectal Cancer Screening Discontinued PNEUMOCOCCAL VACCINE 65+ YEARS Completed 1 08/09/2020, 05/02/2020, 03/02/2019 FIT-DNA Q 3 years Discontinued FIT/FOBT Q 1 year Discontinued Flex Sig/CT Colonography Q 5 years Discontinued Insurance [id number]
--- OUTSIDE RECORDS SUMMARY | 2024-09-05 17:05 | XMS_ITS | Data Portability ---
Author Organization [place] - [facility] [employer] Main Office Address [address] [place] [address] Assessment Encounter Date Assessment Date Assessment LastModified by Organization Details LastModified Time 11/10/2023 11/10/2023 This note is dictated and transcribed by [employer]. Benefits Manager variances may occur. Despite proofreading, typographical errors may occur. Occasional wrong-word or '[id number]' substitutions may have occurred due to the inherent limitations of voice recording. Read the chart carefully and recognize, using context, where substitutions have occurred. [email or web address] Not available 11/10/2023 13:52:39 Plan of Treatment Reminders Order Date Submit Date Provider Last Modified By Organization Details Last Modified Time Details Appointments None recorded. Lab None recorded. Referral None recorded. Procedures None recorded. Surgeries None recorded. Imaging None recorded. Medication Orders Silvadene 1 % topical cream 2023 024 [facility] #[id number], [address], [place], [address], 12:51:59 Patient TargetsNo targets recorded. Patient InstructionsNo instructions recorded. Reason for Referral None Reported. Results Created Date Observation Date Name Description Value Unit Range Abnormal Flag Note LastModifiedBy Organization Detail LastModifiedTime 11/05/1911/05/2023 vascu lar exami natio n (PROC ) No observ ation record ed. [email or web address] [facility] [address], [place], [address], 11/09/2023 15:47:17 03/08/20 24 03/08/2024 US, solomon x, arter ial, lower extre mity No observ ation record ed. [email or web address] [facility] [address], [place], [address], 03/09/2024 10:40:15 Result Notes None recorded. Problems Name Problem SNOMED Code Status Onset Date Resolution Date Notes Provider Name and Address Organization Details Recorded Time Disorder of trunk 095531590 Active Not Available [facility] 3 13:52:21 Osteoarthriti s of knee 453209982 Active Not Available [facility] 3 13:52:21 Knee pain Active Not Available [facility] 3 13:52:21 Osteoarthriti s 597279319 Active Not Available [facility] 3 13:52:21 Pain in limb 53762444 Active Not Available [facility] 3 13:52:21 Peripheral arterial occlusive disease 566122185 Active 2023 David Terrell DPM [address] [facility], [facility] [address], [place], [address] , [employer] 4 12:46:19 Ulcer of big toe 308023873 Active 2023 David Terrell DPM [address] [facility], [address], [place], [address] , [employer] 4 12:46:24 Problem Notes None recorded. Procedures Surgical History Date Name Laterality Status Provider Name and Address Organization Details Recorded Time 11/10/2023 Wound Care-Podiat ry completed Mya Trammell RN [facility] [employer] 11/10/2023 12:58:14 Imaging Results Imaging Date Name Status LastModified by Organ [facility] Details LastModified Time 11/05/2023 vascular examination (PROC) completed bisi [facility] [address], [place], [address], 11/09/2023 15:47:17 03/08/2024 US, duplex, arterial, lower extremity completed bisi [facility] [address], [place], [address], 03/09/2024 10:40:15 Procedure Notes None recorded. Medical Equipment None Reported. Allergies Allergen ID Allergen Name Allergen Category Reaction Reaction Severity Criticality Documentation Date Start Date Code Code System Note Provider Name and Address Organization Details Recorded Time 48839 Product containin g penicilli n and antibioti c (product) medicatio n Not available Not available Not available 11/10/2023 85011 05 SNOMED Mya Trammell RN null, [place] [facility] [employer]) 12:27:58 Medications Name Sig Start Date Stop Date Status Note LastModified by Organization Details LastModified Time losartan 50 mg tablet TAKE 1 TABLET BY MOUTH EVERY DAY active Not Available Not Available No t Available furosemide 40 mg tablet TAKE 1 TABLET BY MOUTH EVERY DAY active Not Available Not Available No t Available atorvastatin 40 mg tablet TAKE 1 TABLET BY MOUTH EVERY DAY AT NIGHT active Not Available Not Available No t Available silver sulfadiazine 1 % topical cream APPLY A 1/16 INCH (1.5 MM) THICK LAYER TO ENTIRE BURN AREA BY TOPICAL ROUTE 2 TIMES PER DAY active Not Available Not Available No t Available metformin 500 mg tablet active Not Available Not Available Not Available atorvastatin 80 mg tablet TAKE 1 TABLET BY MOUTH EVERY DAY AT NIGHT active Not Available Not Available No t Available atorvastatin 20 mg tablet TAKE 1 TABLET BY MOUTH EVERY DAY active Not Available Not Available No t Available trazodone 50 mg tablet TAKE 1 TABLET BY MOUTH EVERY DAY AT NIGHT active Not Available Not Available No t Available azithromycin 250 mg tablet TAKE 2 TABLETS BY MOUTH TODAY, THEN TAKE 1 TABLET DAILY FOR 4 DAYS DIRECTED active Not Available Not Available No t Available tramadol 37.5 mg-acetamino phen 325 mg tablet active Not Available Not Available Not Available nystatin 100,000 unit/gram topical ointment active Not Available Not Available Not Available fluconazole 150 mg tablet active Not Available Not Available Not Available metoprolol succinate ER 50 mg tablet,exten ded release 24 hr active Not Available Not Available Not Available hydrocodone 5 mg-acetamino phen 325 mg tablet active Not Available Not Available Not Available sertraline 100 mg tablet TAKE 1 TABLET BY MOUTH EVERY DAY active Not Available Not Available No t Available clopidogrel 75 mg tablet TAKE 1 TABLET BY MOUTH EVERY DAY active Not Available Not Available No t Available ciprofloxaci n 250 mg tablet active Not Available Not Available Not Available ciprofloxaci n 500 mg tablet active Not Available Not Available Not Available sulfamethoxa zole 800 mg-trimethop rim 160 mg tablet active Not Available Not Available Not Available olanzapine 2.5 mg tablet TAKE 1 TABLET BY MOUTH 3 TIMES A DAY. active Not Available Not Available No t Available hydrocodone 10 mg-acetamino phen 325 mg tablet active Not Available Not Available Not Available tramadol 50 mg tablet TAKE 1 TABLET BY MOUTH EVERY 6 HOURS NEEDED FOR PAIN active Not Available Not Available No t Available amitriptylin e 50 mg tablet active Not Available Not Available Not Available ketorolac 10 mg tablet active Not Available Not Available No t Available alprazolam 0.5 mg tablet TAKE 1 TABLET BY MOUTH NIGHTLY NEEDED FOR ANXIETY active Not Available Not Available No t Available oxycodone-ac etaminophen 10 mg-325 mg tablet active Not Available Not Available Not Available dicyclomine 20 mg tablet TAKE 1 TABLET BY MOUTH FOUR TIMES A DAY BEFORE MEALS AND NIGHTLY active Not Available Not Available No t Available benzonatate 100 mg capsule TAKE 1 CAPSULE BY MOUTH THREE TIMES A DAY NEEDED FOR COUGH active Not Available Not Available No t Available pantoprazole 40 mg tablet,delay ed release TAKE 1 TABLET BY MOUTH EVERY DAY active Not Available Not Available No t Available neomycin-marlon ymyxin-dexam eth 3.5 mg/mL-10,000 unit/mL-0.1% eye drops active Not Available Not Available No t Available nitroglyceri n 0.[address] 1 TABLET UNDER TONGUE ONCE A DAY active Not Available Not Available No t Available methimazole 5 mg tablet TAKE 1 TABLET BY MOUTH EVERY DAY active Not Available Not Available No t Available buspirone 7.5 mg tablet TAKE 1 TABLET BY MOUTH THREE TIMES A DAY active Not Available Not Available Not Available mupirocin 2 % topical ointment APPLY 1 APPLICATION ONTO THE AFFECTED TOE(S) 3 TIMES DAILY active Not Available Not Available Not Available zolpidem 5 mg tablet TAKE 1 TABLET BY MOUTH EVERY DAY AT NIGHT NEEDED active Not Available Not Available No t Available furosemide 20 mg tablet TAKE 1 TABLET BY MOUTH EVERY DAY active Not Available Not Available No t Available metoprolol succinate ER 25 mg tablet,exten ded release 24 hr TAKE 1 TABLET BY MOUTH EVERY DAY DIRECTED active Not Available Not Available No t Available clobetasol 0.05 % topical ointment active Not Available Not Available Not Available cefuroxime axetil 500 mg tablet TAKE 1 TABLET BY MOUTH TWICE A DAY active Not Available Not Available No t Available methylpredni solone 4 mg tablets in a dose pack active Not Available Not Available No t Available losartan 100 mg tablet active Not Available Not Available No t Available metformin ER 500 mg tablet,exten ded release 24 hr active Not Available Not Available Not Available sertraline 50 mg tablet TAKE 1 TABLET BY MOUTH EVERY DAY active Not Available Not Available No t Available amitriptylin e 100 mg tablet active Not Available Not Available Not Available doxycycline hyclate 100 mg tablet TAKE 1 TABLET BY MOUTH TWICE A DAY FOR 10 DAYS active Not Available Not Available No t Available Cartia XT 180 mg capsule,exte nded release active Not Available Not Available Not Available buspirone 15 mg tablet TAKE 1 TABLET BY MOUTH 3 TIMES A DAY. active Not Available Not Available No t Available escitalopram 10 mg tablet active Not Available Not Available Not Available valsartan 40 mg tablet active Not Available Not Available No t Available ezetimibe 10 mg tablet TAKE 1 TABLET BY MOUTH EVERY DAY active Not Available Not Available No t Available Klor-Con M20 mEq tablet,exten ded release TAKE 2 TABLETS BY MOUTH EVERY DAY active Not Available Not Available No t Available memantine 5 mg tablet TAKE 1 TABLET BY MOUTH TWICE A DAY active Not Available Not Available No t Available nitrofuranto in monohydrate/ macrocrystal s 100 mg capsule active Not Available Not Available Not Available duloxetine 20 mg capsule,vitor yed release TAKE 1 CAPSULE BY MOUTH EVERY 12 HOURS active Not Available Not Available No t Available eszopiclone 1 mg tablet TAKE 1 TABLET (1 MG TOTAL) BY MOUTH NIGHTLY TAKE IMMEDIATELY BEFORE BEDTIME active Not Available Not Available No t Available Contour Test Strips active Not Available Not Available Not Available Lantus Solostar U-100 Insulin 100 unit/mL (3 mL) subcutaneous pen INJECT 26 UNITS UNDER THE SKIN NIGHTLY active Not Available Not Available No t Available Humalog KwikPen (U-100) Insulin 100 unit/mL subcutaneous active Not Available Not Available Not Available diclofenac 1.5 % topical drops active Not Available Not Available Not Available lidocaine 5 % topical ointment active Not Available Not Available Not Available Vascepa 1 gram capsule TAKE 2 CAPSULES BY MOUTH TWICE A DAY active Not Available Not Available No t Available Farxiga 10 mg tablet TAKE 1 TABLET BY MOUTH EVERY DAY active Not Available Not Available No t Available Xarelto 2.5 mg tablet TAKE 1 TABLET BY MOUTH TWICE A DAY active Not Available Not Available No t Available Kerendia 10 mg tablet TAKE 1 TABLET BY MOUTH EVERY DAY active Not Available Not Available No t Available Ozempic 0.25 mg or 0.5 mg (2 mg/3 mL) subcutaneous pen injector INJECT 0.25MG SUBCUTANEOU SLY ONCE WEEKLY X4 WEEKS THEN 0.5MG WEEKLY. REDUCES RISK OF MAJOR CV EVENTS active Not Available Not Available No t Available Vitals Date Recorded Oxygen saturation Oxygen saturation in Arterial blood by Pulse oximetry Respiratory rate Heart rate Systolic blood pressure Diastolic blood pressure Provider Name and Address Organization Details Last Updated DateTime 4 97 % 97 % 18 /min 68 /min 118 mm[Hg] 55 mm[Hg] JOSESITO Martel - [facility] [employer] 4 12:13:22 Social History None recorded. Functional Status None recorded. Mental Status None recorded. Family History Nothing Reported. Medical History Condition Response THYROID DISEASE Y HEADACHES/MIGRAINES Y USE OF BLOOD THINNERS Y VASCULAR DISEASE Y DIZZINESS Y HEART DISEASE/HEART PROBLEMS Y NEUROPATHY Y DIABETES, TYPE Y KIDNEY DISEASE Y ALLERGIES/HAYFEVER Y HEARTBURN / REFLUX Y HYPERTENSION Y HIGH CHOLESTEROL / HYPERLIPIDEMIA Y OBESITY Y FIBROMYALGIA Y CAROTID BLOCKAGE Y URINARY/BLADDER/KIDNEY PROBLEMS Y USE OF NSAIDS Y CORONARY ARTERY DISEASE (CAD) Y BACK / NECK PROBLEMS Y BOWEL PROBLEMS Y FOOT PROBLEM Y Gynecological HistoryNo gynecological history recorded. Obstetrics History GPAL:G 0 P 0 0 0 0 Past Encounters Encounter ID Performer Location Encounter Start Date Encounter Closed Date Diagnosis/Indication Diagnosis SNOMED-CT Code Diagnosis ICD10 Code Diagnosis Note [id number] David Terrell DPM [facility] [address] [place] [address] 11/10/2023 11:27:17 11/10/2023 14:19:17 Peripheral arterial occlusive disease 305115018 I73.9 obtain records from Vascular Ulcer of big toe 5880285 02 L97.509 wound debrided todayeduca guillermina on wound careSilvad maddie wet-to-dry dressings dailyfollo w-up in 1 week Health Concerns Section Related Observation LastModified by Organization Detai ls LastModified Time None Recorded Concern Status LastModified by Organization Details LastModified Time None Recorded Advance Directives Directive None Recorded Payers Encounter Date Sequence Insurance Name Policy Number Policy Kapoor Covered Member ID Kapoor Member ID Guarantor Name 11/10/2023 1 [facility] (MEDICARE REPLACEMENT/AD VANTAGE - PPO) [id number] Osvaldo Rawls [id number] Osvaldo Rawls 11/10/2023 2 [place] WHEN MEDICARE OR MEDICARE REPLACEMENT PRIMARY) Osvaldo Rawls [id number] Osvaldo Rawls Notes Date Note Type Note Provider Name and Address Organization Details Recorded Time 11/10/2023 text/html . Patient is a 78-year-old female who presents the office with complaints of ischemic wounds to the great toe. Patient states she has a family history of peripheral vascular disease. Patient has had recent stenting in September. We will obtain evaluation from vascular. Patient denies any fever, chills, nausea or vomiting. Patient states she does have pain to the wound. Patient denies any other complaints. David Terrell DPM [address] [facility], [facility] [address], [place], [address], [place] [facility] [employer] 11/10/2023 13:53:14 OBGyn Episode No OBEpisode recorded.
--- OUTSIDE RECORDS SUMMARY | 2024-09-05 17:05 | XMS_ITS | Encounter Summary ---
Author Organization [facility] Healthcare Address [address] [place] [address] Care Team Providers Care Shoe Repairer Name Role Phone Murphy Diaz MD, Shade Monson Unavailable [phone] Juanpablo Reinoso MD Unavailable Ritesh Guardado MD Unavailable Duke Dunlap MD Unavailable Venkat Laguerre MD Unavailable Annette Dailey NP Primary Care Provider [phone] Jam Le MD Unavailable [phone] Miscellaneous, Not In File Unavailable Unava ilable Neda Hanson MA Unavailable Reason for Visit * Reason Onset Date Comments Medical Question/Miscellaneous 08/08/2024 Encounter Details Date Type Department Care Team (Late st Contact Info) Description 08/08/2024 Telephone [facility] Internal Medicine at [place] [address] [place] [address] Annette Dailey NP [address] [place] [address] Medical Question/Miscellaneous Social History Tobacco Use Types Packs/Day Years Used Date Smoking Tobacco: Never Smokeless Tobacco: Never Alcohol Use Standard Drinks/Week Comments Not Currently 0 (1 standard drink = 0.6 oz pur e alcohol) [facility] Utilities Answer Date Recorded In [...] often do you attend chur ch or christianity services? 1 to 4 times per year 11/18/2023 Do you belong to any clubs o r organizations such as synagogue groups, unions, fraternal or athletic groups, or [...] place to sleep or slept in a prison (including now)? No 11/18/2023 Personal Safety Answer Date Recorded Have you ever been in or are you currently in a harmful physical or emotional relationship or is someone making you feel afraid or unsafe? 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 Does message need to be routed? Yes-FYI Only NEERING AND SCIENTIFIC PROGRAMMER documented in this encounter Plan of Treatment Not on file documented as of this encounter Visit Diagnoses Not on filedocumented in this encounter Care Teams Shoe Repairer Relationship Specialty Start Date End Date Annette Dailey NP [address] [place] [address] PCP - General Internal Medicine 11/23/22 Shade Arrington Jr., MD [address] [place] [address] Consulting Physician Cardiovascular Disease 09/07/20 Juanpablo Reinoso MD [address] [place] [address] Consulting Physician Cardiovascular Disease 12/13/20 Ritesh Guardado MD [address] [place] [address] Referring Physician Cardiovascular Disease 12/26/20 [place] [address] [address] Surgeon Orthopedic Surgery 12/26/20 [place] [address] [address] Consulting Physician Gastroenterology 12/26/20 Jam Le MD [address] [place] [address] Consulting Physician Cardiology 11/29/23 Miscellaneous, Not In File 11/29/23 Neda Hanson MA [address] [place] [address] ACO Care Flight Test Supervisor 08/24/24 08/24/24 documented as of this encounter
[2024-09-05 17:06] VITALS: BP 183/58; PULSE 76; RESP 18; TEMP 36.2; O2SAT 100
--- OUTSIDE RECORDS SUMMARY | 2024-09-05 17:06 | XMS_ITS | Referral Summary ---
Author Organization [facility] [address] Address [address] [place] [address] Care Team Providers Care Foreign Languages Department Chair Name Role Phone Murphy Diaz MD, Shade Monson Unavailable [phone] Juanpablo Reinoso MD Unavailable Ritesh Guardado MD Unavailable Duke Dunlap MD Unavailable Venkat Laguerre MD Unavailable Annette Dailey LINSEED OIL PRESS TENDER Primary Care Provider [phone] Jam Le MD Unavailable [phone] Miscellaneous, Not In File Unavailable Unava ilable Encounters Date Type Department Care Team Description 09/05/2024 Nurse Triage [facility] [place] [address] [place] [address] Annette Dailey NP 09/01/2024 Telephone [facility] Family Medicine [address] [place] [address] Annette Dailey NP 08/24/2024 KB ED Outreach [address] [address] Debra Bryant MA 08/24/2024 KB ED Outreach [address] [address] Neda Hanson MA 08/23/2024 2:46 PM ELECTRICAL TESTER BATTERY - 08/23/2024 7:28 PM ELECTRICAL TESTER [employer]TER[employer] Emergency [facility] Emergency Department [address] [place] [address] Discharge Disposition: Left without being seen 08/08/2024 Telephone [facility] Medical [facility] Internal [facility] [place] [address] [place] [address] Rd [address] [place] [address] Annette Dailey NP Medical Question/Miscellane ous 08/08/2024 Orders Only [facility] Internal [facility] [place] [address] [place] [address] Rd [address] [place] [address] Annette Dailey NP Hypertension associated with diabetes (HCC) (Primary Dx) 08/03/2024 Telephone [facility] Gastroenterology at [address] [place] [phone] Duy Palm MD 07/24/2024 Telephone [facility] Family Medicine [address] [place] [address] Annette Dailey NP 07/14/2024 Nurse Triage [facility] Internal [facility] [place] [address] [place] [address] Annette Dailey NP 07/14/2024 Nurse Triage [facility] Internal [facility] [place] [address] [place] [address] Stefany Loya RN 07/12/2024 Telephone [facility] Medicine [address] [place] [address] Annette Dailey NP 07/10/2024 KB IP Outreach [address] [address] Esther Martínez MA 07/07/2024 KB IP Outreach [address] [place] [address] Esther Martínez MA 07/05/2024 Telephone [facility] Internal [facility] [place] [address] [place] [phone] Annette Dailey NP Test Results 07/05/2024 KB IP Outreach [facility] Care Organization [address] [place] [address] Esther Martínez MA 06/29/2024 Orders Only [facility] Health Information Management [address] [place] [address] Annette Dailey NP 06/15/2024 Telephone [facility] Family Medicine [address] [place] [address] Annette Dailey NP 06/08/2024 Orders Only [facility] Health Information Management [address] [place] [address] Annette Dailey NP from Last 3 Months Allergies Active Allergy Reactions Criticality Noted Date Comments Cyclobenzaprine Palpitations Low 09/14/2011 Dabigatran Etexilate Mesylate Palpitations,Shortnes s of breath High 08/21/2015 Fentanyl Citrate Itching Low 01/01/2016 Gabapentin Other (See comments) Low 09/05/2020 Muscle weakness, I turn to rubber. Penicillins Swelling High throat Ranolazine Anxiety Low 09/14/2011 Medications dapagliflozin (FARXIGA) 10 mg tablet Take 1 tablet (10 mg total) by mouth daily Active Alcohol Pads pads, medicated TEST 4 TIMES A DAY 021 Active Ultra Thin Lancets 31 gauge misc TEST 4 TIMES A DAY Active acetaminophen (TYLENOL) 500 mg tablet Take 2 tablets (1,000 mg total) by mouth every 6 (six) hours as needed for pain or headaches Active Contour Next Test Strips strip TEST 4 TIMES A DAY Active metoprolol XL (TOPROL-XL) 25 mg extended release tablet Take 1 tablet (25 mg total) by mouth daily 08/11/2 021 Active omega-3 fatty acids-fish oil 300-1,000 mg capsule Take 2 capsules (2 g total) by mouth 2 (two) times a day Active clopidogreL (PLAVIX) 75 mg tablet Take 1 tablet (75 mg total) by mouth daily Active methIMAzole (TAPAZOLE) 5 mg tablet TAKE 1 TABLET (5 MG TOTAL) BY MOUTH DAILY. 90 tablet 1 024 Active losartan (Cozaar) 100 mg tablet Take 1 tablet (100 mg total) by mouth daily Active atorvastatin (LIPITOR) 80 mg tablet Take 1 tablet (80 mg total) by mouth daily Active insulin glargine 100 unit/mL (3 mL) pen for injection Inject 16 Units under the skin nightly 4.8 mL Active calcium carbonate (TUMS) 500 mg (200 mg elemental calcium) chewable tablet Take 1 tablet/chew tab (500 mg total) by mouth daily 30 tablet/chew tab Active albuterol 1.25 mg/3 mL nebulizer solutionIndicatio ns:Diastolic dysfunction Take 3 mL (1.25 mg total) by nebulization every 6 (six) hours as needed for wheezing 75 mL 2024 Active melatonin 5 mg tabletIndications :Moderate vascular dementia with anxiety (HCC) Take 1 tablet (5 mg total) by mouth nightly as needed (insomnia) Active traMADoL (ULTRAM) 50 mg tabletIndications :Closed displaced fracture of greater trochanter of left femur with routine healing Take 1 tablet (50 mg total) by mouth every 6 (six) hours as needed for pain 40 tablet 024 Active traZODone (DESYREL) 50 mg tabletIndications :Moderate vascular dementia with anxiety (HCC) TAKE 1 TABLET BY MOUTH EVERY DAY AT NIGHT 90 tablet 1 024 Active busPIRone (BUSPAR) 15 mg tabletIndications :Anxiety TAKE 1 TABLET BY MOUTH 3 TIMES A DAY. 270 tablet 1 024 Active sertraline (ZOLOFT) 50 mg tabletIndications :Moderate episode of recurrent major depressive disorder (HCC) TAKE 1 TABLET BY MOUTH EVERY DAY 90 tablet 024 Active furosemide (LASIX) 20 mg tabletIndications :Localized edema TAKE 1 TABLET BY MOUTH EVERY DAY 90 tablet 1 024 Active ezetimibe (ZETIA) 10 mg tabletIndications :Mixed hyperlipidemia TAKE 1 TABLET BY MOUTH EVERY DAY 90 tablet 1 024 Active memantine (NAMENDA) 5 mg tabletIndications :Moderate vascular dementia with anxiety (HCC) TAKE 1 TABLET BY MOUTH TWICE A DAY 180 tablet Active Klor-Con M20 20 mEq CR tablet TAKE 2 TABLETS BY MOUTH EVERY DAY 180 tablet Active ALPRAZolam (XANAX) 0.5 mg tabletIndications :Anxiety TAKE 1 TABLET BY MOUTH NIGHTLY NEEDED FOR ANXIETY 20 tablet 3 Active OLANZapine (ZyPREXA) 2.5 mg tabletIndications :Moderate episode of recurrent major depressive disorder (HCC) TAKE 1 TABLET BY MOUTH THREE TIMES A DAY 270 tablet 1 024 Active eszopiclone (LUNESTA) 1 mg tablet TAKE 1 TABLET BY MOUTH NIGHTLY TAKE IMMEDIATELY BEFORE BEDTIME 30 tablet Active Xarelto 2.5 mg tabletIndications :PVD (peripheral vascular disease) ([facility]) TAKE 1 TABLET BY MOUTH TWICE A DAY 180 tablet [address] (PROTONIX) 40 mg EC tablet TAKE 1 TABLET BY MOUTH EVERY DAY 90 tablet [address] (PROTONIX) 40 mg EC tablet TAKE 1 TABLET BY MOUTH EVERY DAY 90 tablet 024 2024 Discontinued Xarelto 2.5 mg tabletIndications :PVD (peripheral vascular disease) (HCC) TAKE 1 TABLET BY MOUTH TWICE A DAY 180 tablet 024 2024 Discontinued eszopiclone (LUNESTA) 1 mg tabletIndications :Insomnia TAKE 1 TABLET (1 MG TOTAL) BY MOUTH NIGHTLY TAKE IMMEDIATELY BEFORE BEDTIME 30 tablet 024 2024 Discontinued Active Problems Problem Noted Date Diagnosed Date Localized edema 01/06/2024 Overview (01/06/2024): Lasix 20 mg daily as directed for lower extremity edema Chronic renal failure, stage 3a 12/07/2023 Assessment & Plan (12/10/2023 11:08 AM CDT): Renal function remains stable, BUN/creatinine 24/0.98 with a GFR 59. Electrolytes stable, follow-up with nephrology as scheduled Assessment & Plan (12/07/2023 2:09 PM CDT): Renal function stable, current creatinine 1.15 with an EGFR of 49. Electrolytes stable Moderate vascular dementia with anxiety 12/03/19 Assessment & Plan (12/10/2023 11:11 AM CDT): 6 CIT score of 5 and out of 28 suggesting cognition is within normal limits. Continue Namenda. Assessment & Plan (12/07/2023 2:10 PM CDT): Patient's mood has improved, much more interactive than previous. Continues to have difficulty with what she believes went on during her hospital stay but reports that she now feels safe. Continue Zoloft, Zyprexa for behavior control and depression. Continue Namenda b.i.d. Assessment & Plan (12/03/2023 2:03 PM CDT): Followed by psychiatry during hospital stay, was restarted on Zoloft, BuSpar, and initiated on Zyprexa. Patient was not transferred with BuSpar but mood is improving significantly with Zyprexa. Patient currently without behaviors. 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 Peripheral vascular disease of lower extremity with ulceration 12/03/2023 Assessment & Plan (12/10/2023 11:07 AM CDT): Patient with chronic ulceration to right foot which is unchanged. Continue atorvastatin, Plavix, Xarelto, blood pressure control and diabetes management. Continue current wound management. Assessment & Plan (12/09/2023 10:01 AM CDT): Cont follow up wound care, cont rx lipitor, zetia, plavix Wound visualized. Cont wound care team Assessment & Plan (12/03/2023 2:25 PM CDT): Patient with chronic ulceration to right great toe, does not appear infected at present. Wound Care will be consulted. Continue aspirin, Plavix, blood pressure control, atorvastatin. We will need vascular surgery/wound care follow-up Closed displaced fracture of greater trochanter of left femur with routine healing 11/18/2023 Assessment & Plan (12/10/2023 11:14 AM CDT): Pain controlled with p.r.n. Tylenol, p.r.n. tramadol. Patient has made good progress in therapy and was felt stable for discharge on 12/12/2023. Patient will restart Xarelto upon discharge which had been on hold secondary to anemia. We will need orthopedic surgery follow-up as scheduled. Home health will be arranged. Assessment & Plan (12/09/2023 10:00 AM CDT): Chronic, stable; cont rx tramadol and cont therapy Assessment & Plan (12/03/2023 2:23 PM CDT): Pain is controlled, continue p.r.n. Tylenol, p.r.n. tramadol. Therapies are in place, monitor patient's progress. Patient is on Xarelto for anticoagulation. Patient also on aspirin and Plavix, we will need to monitor H&H closely. Patient should remain on all 3 anticoagulants due to significant vascular underlying history. Fall 10/07/2023 Assessment & Plan (10/07/2023 11:56 AM CDT): This is a significant, separately identifiable problem that was evaluated and managed on the same day as the wellness exam Peripheral arterial disease 10/05/2023 Leg pain 09/29/2023 Right wrist pain 06/21/2023 Chronic infection of both ears 06/21/2023 B12 deficiency 03/17/2023 Assessment & Plan (12/04/2023 12:50 PM CDT): Continue b12 supplements Aortic regurgitation 03/17/2023 Assessment & Plan (12/04/2023 12:47 PM CDT): Hx of cabg, continue lasix. Euvolemic. Follow up with cardiology OP to discuss tAVR Peripheral arterial occlusive disease ([facility]/HCC) 11/25/2022 Assessment & Plan (12/04/2023 12:50 PM CDT): Continue statin, asa and plavix. Continue zetia. PVD (peripheral vascular disease) 10/06/2022 Overview (10/06/2022): Added automatically from request for surgery [id number] Leg pain, bilateral 08/10/2022 Anemia 03/31/2022 Assessment & Plan (12/10/2023 11:08 AM CDT): Likely related to medication use, patient reports that she was not taking aspirin at home, will discontinue. We will continue Plavix, Xarelto can be resumed at discharge. Follow-up CBC in 1 week Assessment & Plan (12/09/2023 10:04 AM CDT): Lab reviewed Assessment & Plan (12/07/2023 2:08 PM CDT): Hemoglobin is lower but overall stable, currently 7.9. Patient reports that she is required iron infusions in the past. No active bleeding noted. We will hold Xarelto, continue aspirin, Plavix. Repeat labs I 2023 to follow Assessment & Plan (03/31/2022 4:15 PM CDT): We reviewed recent labs, will refer to hematology for discussion of iron infusions Neuropathy 03/31/2022 Assessment & Plan (03/31/2022 4:17 PM CDT): Discussed gabapentin and lyrica, patient declines medication at this time. Type 2 diabetes mellitus with hyperlipidemia 12/2021 Assessment & Plan (03/31/2022 4:18 PM CDT): Will evaluate further with ALEJA of legs. Advised f/u with [facility] Skin abrasion 03/31/2022 Assessment & Plan (03/31/2022 4:17 PM CDT): Advised cleansing with dove soap and warm water, no exfoliants. Advised no sandoval on face. Advised having someone assist her with hair removal if desiring in the future. Type 2 diabetes mellitus wit h stage 3a chronic kidney disease 12/24/2021 Assessment & Plan (12/24/2021 8:38 PM CDT): Will refer to nephro for further eval and treatment Will refer to Dr. Villafana for DM Concussion with loss of consciousness 09/03/2021 Assessment & Plan (09/03/2021 9:54 PM ELECTRICAL TESTER BATTERY): Advised her to continue to not drive Advised neurology consult - will attempt again to refer her TMJ (temporomandibular joint disorder) Assessment & Plan (06/09/2021 12:28 PM ELECTRICAL TESTER BATTERY): We reviewed the ENT consult note. She was encouraged to consult her dentist. She will let us know if needing assistance or a referral. Nontoxic multinodular goiter 05/27/2021 Assessment & Plan (05/13/2023 11:09 AM CDT): Patient with history on nodular goiter since 2012 S/p benign FNA biopsy of the right lobe nodule X 2 in 2012 and 2017 The nodules are stable in size based on last ultrasound in 2019 Right lobe nodule 2.3 cm Left lobe nodules 1.5 and 1.8 cm Not detected clinically Plan: Can monitor clinically Assessment & Plan (02/18/2023 3:37 PM CDT): Discussed the patients BMI: The BMI is above average BMI management is complete. BMI follow-up includes: Nutrition Counseling and education provided Assessment & Plan (11/04/2022 11:51 AM CDT): Patient with history on nodular goiter since 2012 S/p benign FNA biopsy of the right lobe nodule X 2 in 2012 and 2017 The nodules are stable in size based on last ultrasound in 2019 Right lobe nodule 2.3 cm Left lobe nodules 1.5 and 1.8 cm Plan: We will monitor Assessment & Plan (08/06/2022 12:00 PM ELECTRICAL TESTER BATTERY): Patient with history on nodular goiter since 2012 S/p benign FNA biopsy of the right lobe nodule X 2 in 2012 and 2017 The nodules are stable in size based on last ultrasound in 2019 Right lobe nodule 2.3 cm Left lobe nodules 1.5 and 1.8 cm Plan: Obtain copy of recent thyroid Ultrasound Assessment & Plan (09/22/2021 3:32 PM ELECTRICAL TESTER BATTERY): Patient with history on nodular goiter since 2012 S/p benign FNA biopsy of the right lobe nodule X 2 in 2012 and 2017 The nodules are stable in size based on last ultrasound in 2019 Right lobe nodule 2.3 cm Left lobe nodules 1.5 and 1.8 cm Plan: Repeat thyroid ultrasound next month Assessment & Plan (05/27/2021 3:20 PM CDT): Patient gives history of thyroid nodules for many years No records available This was evaluated by ultrasound and thyroid scan Plan: Obtain old records She will probably needs repeat ultrasound based on previous results. Hyperthyroidism 05/27/2021 Assessment & Plan (12/04/2023 12:51 PM CDT): Not in acute exacerbation, continue tapazole and continue metop. Hr stable Assessment & Plan (05/13/2023 11:09 AM CDT): Patient with history of hyperthyroidism evaluated by Endocrinology in the past Labs confirmed sub-clinical hyperthyroidism with TSH of 0.09 Started low dose Methimazole in June/2021 Patient is clinically euthyroid TSH was normal at 3.1 on 11/04/22 Plan: Continue Methimazole 5 mg /day Check labs today I will adjust the dose if needed Assessment & Plan (11/04/2022 11:52 AM CDT): Patient with history of hyperthyroidism evaluated by Endocrinology in the past Labs confirmed sub-clinical hyperthyroidism with TSH of 0.09 Started low dose Methimazole in June/2021 Patient is clinically euthyroid TSH was normal at 2.3 on 03/25/22 Plan: Continue Methimazole 5 mg /day Check labs today Assessment & Plan (08/06/2022 12:00 PM ELECTRICAL TESTER BATTERY): Patient with history of hyperthyroidism evaluated by Endocrinology in the past Labs confirmed sub-clinical hyperthyroidism with TSH of 0.09 Started low dose Methimazole in June/2021 Patient is clinically euthyroid TSH was normal at 2.3 on 03/25/22 Plan: Continue Methimazole 5 mg /day Check labs next visit. Assessment & Plan (03/04/2022 3:13 PM CDT): Will evaluate further on labs as it could be effecting her anxiety. Assessment & Plan (09/22/2021 3:33 PM ELECTRICAL TESTER BATTERY): Patient with history of hyperthyroidism evaluated by Endocrinology in the past Labs confirmed sub-clinical hyperthyroidism with TSH of 0.09 Started low dose Methimazole in June/2021 Plan: Continue Methimazole 5 mg /day Check labs this week I will adjust the dose if needed. Assessment & Plan (05/27/2021 3:19 PM CDT): Patient with history of hyperthyroidism evaluated by Endocrinology in the past Patient was found to have low TSH of 0.06 on 04/14/21 She had normal TSH earlier this year Plan: Obtain old records Check TFT when done with antibiotics. Acute ear pain, bilateral 05/05/2021 Assessment & Plan (05/29/2021 3:21 PM CDT): We discussed as ear is normal, headache is worsening and history of atherosclerosis with syncope that further evaluation is warranted and needed at the er today. She will have family drive her. Report called to [facility] at [facility] at patient request. 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 03/13/2021 Weight loss 03/13/2021 Assessment & Plan (09/03/2021 9:54 PM ELECTRICAL TESTER BATTERY): Will evaluate further with ct chest/abd/pelvis Continue with ensure daily Assessment & Plan (04/10/2021 2:51 PM CDT): Advised further evaluation with labs Assessment & Plan (03/13/2021 5:53 PM CDT): Advised ct chest, screening mammo Has pending egd cscope recently completed Has labs to complete, order pending Advised starting ssri, she declines at this time Fatigue 03/13/2021 Assessment & Plan (04/10/2021 2:51 PM CDT): Advised further evaluation with labs Assessment & Plan (03/13/2021 5:53 PM CDT): She has pending lab order that she will complete Physical exam, annual 03/13/2021 BMI 30.0-30.9,adult 01/29/2021 Assessment & Plan (02/14/2024 11:00 AM CDT): Discussed the patients BMI: The BMI is above average BMI management is complete. BMI follow-up includes: Nutrition Counseling and education provided Assessment & Plan (06/21/2023 1:08 PM ELECTRICAL TESTER BATTERY): Discussed the patients BMI: The BMI is above average BMI management is complete. BMI follow-up includes: Nutrition Counseling and education provided Assessment & Plan (06/09/2021 12:27 PM ELECTRICAL TESTER BATTERY): Obesity is unchanged. Discussed the patient's BMI. The BMI is above average. BMI management plan is completed. BMI Follow-up includes: nutrition counseling, exercise counseling and education provided. Assessment & Plan (05/05/2021 1:31 PM CDT): Obesity is unchanged. Discussed the patient's BMI. The BMI is above average. BMI management plan is completed. BMI Follow-up includes: nutrition counseling, exercise counseling and education provided. Assessment & Plan (04/10/2021 1:18 PM CDT): Obesity is unchanged. Discussed the patient's BMI. The BMI is above average. BMI management plan is completed. BMI Follow-up includes: nutrition counseling, exercise counseling and education provided. Assessment & Plan (03/13/2021 2:47 PM CDT): Obesity is unchanged. Discussed the patient's BMI. The BMI is above average. BMI management plan is completed. BMI Follow-up includes: nutrition counseling, exercise counseling and education provided. Assessment & Plan (01/29/2021 3:07 PM CDT): Obesity is unchanged. Discussed the patient's BMI. The BMI is above average. BMI management plan is completed. BMI Follow-up includes: nutrition counseling, exercise counseling and education provided. Closed fracture of lower end of left radius with routine healing 01/14/2021 Assessment & Plan (01/29/2021 6:22 PM CDT): She was advised to call ortho to reschedule recent missed appt. Assessment & Plan (01/14/2021 3:52 PM CDT): Outpatient ortho appt pending Dizziness 11/18/2020 Assessment & Plan (11/18/2020 2:35 PM CDT): Stat ct head without contrast Advised her to call her ophtho for stat appt Advised her to continue to not drive Blurry vision, bilateral 11/18/2020 Assessment & Plan (11/18/2020 2:35 PM CDT): Stat ct head without contrast Advised her to call her ophtho for stat appt Advised her to continue to not drive Memory change 11/18/2020 Heart murmur 11/18/2020 Assessment & Plan (12/24/2021 8:38 PM CDT): Continue care per cardiology Assessment & Plan (01/14/2021 3:52 PM CDT): Followed by infrastructure administrator Assessment & Plan (11/18/2020 2:35 PM CDT): Stable, monitored by cardiology Cellulitis of toe of right foot 09/30/2020 Assessment & Plan (09/30/2020 1:18 PM ELECTRICAL TESTER BATTERY): Retrieve imaging report from [facility] - she states she had a ct to look for osteomyelitis. Labs entered, will notify of results as available Will start on doxycycline Advised f/u in next week, sooner if worsening Episode of recurrent major depressive disorder 0 09/30/2020 Assessment & Plan (12/10/2023 11:09 AM CDT): Mood is overall stable, patient has become more compliant as her stay extended. She has been cooperative with care and no longer has behaviors. Continue Namenda, Zyprexa, sertraline, trazodone for sleep Assessment & Plan (03/31/2022 4:17 PM CDT): She was advised to consider a psychiatric consult due to anxiety and depression. Continue with zoloft same dosing at this time. 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 Continue with counseling. We discussed increasing buspar pending response. Assessment & Plan (03/13/2021 5:53 PM CDT): Will refer for counseling She declines the advised ssri/snri Assessment & Plan (09/30/2020 1:17 PM ELECTRICAL TESTER BATTERY): Makes pact to report to er if having s/h ideations. Increase zoloft to 50mg daily Gastroesophageal reflux disease without esophagi tis 09/05/2020 Assessment & Plan (09/05/2020 6:17 PM ELECTRICAL TESTER BATTERY): On Protonix. Diastolic dysfunction 08/02/2020 Assessment & Plan (12/10/2023 11:13 AM CDT): Echo reviewed, grade 1 diastolic dysfunction, preserved ejection fraction. Currently compensated/euvolemic. Continue Farxiga, Lasix. Cardiology follow-up as an outpatient. Pt has been utilizing nebulized albuterol prn which helps her SOB/chest heaviness related to underlying CHF, CAD. Pt requesting a nebulizer be set up at home. Other ill-defined heart diseases 08/02/2020 Chest pain 03/25/2020 Overview (03/25/2020): Added automatically from request for surgery [id number] Assessment & Plan (09/05/2020 6:13 PM ELECTRICAL TESTER BATTERY): Possibly musculoskeletal but need to r/o acs. Troponin levels of 10, 9, continue serial readings. EKG SR 98. History of cad. Cardiology has been consulted for which we appreciate their evaluation and recommendations. Telemetry monitoring. Cath 03/2020 with stenting to LCX and OM2. Bandemia 03/25/2020 Type 2 diabetes mellitus wit h hyperglycemia, with long-term current use of insulin 03/25/2020 Assessment & Plan (12/10/2023 11:08 AM CDT): A1c 6.6, Accu-Cheks controlled. Continue glargine 16 units q.h.s., Farxiga Assessment & Plan (12/03/2023 2:11 PM CDT): Hgb A1C 6.6 . Blood sugars ranging from 142-148, continue glargine 16 units q.h.s., Farxiga daily Assessment & Plan (05/13/2023 11:08 AM CDT): Control : in good control- no hypoglycemia A1c 6.6% on 05/13/23 A1c 6.2% on 11/04/22 A1c 6.3% on 08/06/22 Kidney: CKD with GFR 58 on 02/19/23 Plan: Continue diet plan Decrease Lantus to 24 units /day Monitor sugars 4 x per day and bring records. Hypoglycemia symptoms and treatment reviewed with patient. Call if having low sugars. Ophthalmology exam on regular basis. Assessment & Plan (11/04/2022 11:50 AM CDT): Control : in good control A1c 6.2% on 11/04/22 A1c 6.3% on 08/06/22 Kidney: CKD with GFR 38 on 03/25/22 Plan: Continue diet plan Decrease Lantus to 26 units /day Monitor sugars 4 x per day and bring records. Hypoglycemia symptoms and treatment reviewed with patient. Call if having low sugars. Ophthalmology exam on regular basis. Assessment & Plan (08/06/2022 11:59 AM ELECTRICAL TESTER BATTERY): Control : in good control A1c 6.3% on 08/06/22 Kidney: CKD with GFR 38 on 03/25/22 Plan: Continue diet plan Continue diabetic medications. Monitor sugars 4 x per day and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 Arti Blunt PA-C Medicines: Monitored Anesthesia Care Complications: No immediate complications. Estimated Blood Loss: Estimated blood loss: none. Procedure: Pre-Anesthesia Assessment: - Airway Examination: normal oropharyngeal airwayand neck mobility. - Respiratory Examination: clear to auscultation. - ASA Grade Assessment: III - A patient with severe systemic disease. - After reviewing the risks and benefits, thepatient was deemed in satisfactory condition to undergo the procedure. - The risks and benefits of the procedure and the sedation options and risks were discussed with the patient. All questions were answered and informed consent was obtained. After I obtained informed consent, the scope was passed under direct vision. Throughout theprocedure, the patient's blood pressure, pulse, and oxygen saturations were monitored continuously. The scopewas passed under direct vision. The Colonoscope was introduced through the anus and advanced to the the terminal ileum. The colonoscopy was performed with ease. The patient tolerated the procedure well. The quality of the bowel preparation was fair. Thequality of the bowel preparation was evaluated using theBBPS (Apex Bowel Preparation Scale) with scores of:Right Colon = 2 (minor amount of residual staining, small fragments of stool and/or opaque liquid, but mucosa seen well), Transverse Colon = 2 (minor amount of residual staining, small fragments of stool and/or opaque liquid, but mucosa seen well) and Left Colon= 1 (portion of mucosa seen, but other areas not well seen due to staining, residual stool and/or opaque liquid). The total BBPS score equals 5. The qualityof the bowel preparation was fair. The bowelpreparation used was SUPREP via split dose instruction. Bowelprep was administered using a split dose. Findings: The perianal and digital rectal examinations were normal. The terminal ileum appeared normal. The colon (entire examined portion) appeared normal. Biopsies for histology were taken with a cold forceps from the entire colon for evaluation of microscopic colitis. Estimated blood loss: none. A 7 mm polyp was found in the cecum. The polyp was sessile. The polyp was removed with a cold snare. Resection and retrieval were complete. Estimated blood loss: none. The retroflexed view of the distal rectum and anal verge was normaland showed no anal or rectal abnormalities. A few medium-mouthed diverticula were found in the sigmoid colon. Impression: - Preparation of the colon was fair. - Preparation of the colon was fair. - The examined portion of the ileum was normal. - The entire examined colon is normal. Biopsied. - One 7 mm polyp in the cecum, removed with a cold snare. Resected and retrieved. - The distal rectum and anal verge are normal on retroflexion view. Recommendation: - [facility] - Await pathology results. - Repeat colonoscopy in 5 years for surveillance. - Imodium 1 caplet PO PRN after loose bowelmovement. Procedure Code(s): --- Professional --- 33874, Colonoscopy, flexible; with removal of tumor(s), polyp(s), or other lesion(s) by snare technique 96072, 59, Colonoscopy, flexible; with biopsy,single or multiple Diagnosis Code(s): --- Professional --- K63.5, Polyp of colon K52.9, Noninfective gastroenteritis and colitis, unspecified CPT copyright 2019 [employer]. All rights reserved. The codes documented in this report are preliminary and upon project scheduler reviewmay be revised to meet current compliance requirements. Electronically signed by Venkat Laguerre MD Venkat Laguerre M.D. 12/17/2020 1:26:16 PM Number of Addenda: 0 Note Initiated On: 12/17/2020 12:42 PM Venkat Laguerre MD ENDOSCOPY PROCEDURES Final Resul t * HM MAMMOGRAPHY (04/09/2020) Venkatesh Sullivan MD HEALTH MAINTENANCE nal Result * Serum Hepatitis C ab (11/25/2014 2:52 AM CDT) HCV ab Negative Negative HISTORICAL RESULTS Serum 11/25/2014 2:52 AM CDT Historical Provider LAB BLOOD ORDERABLES Stephanie baker Result HISTORICAL RESULTS from Last 3 Months or Most Recently Relevant to Health Maintenance Insurance [facility] MEDICARE SOLUTIONS [facility] Address: [address] [address] [place] [address] [facility] [employer] MEDICARE SOLUTIONS [employer] MEDICARE SOLUTIONS Advance Directives For more information, please contact: [phone] * Full Code (Latest Code Status on File) Date Activated Date Inactivated Comments 11/18/2023 12:50 AM 11/29/2023 10:31 PM * Full Code Date Activated Date Inactivated Comments 10/05/2023 12:56 PM 10/06/2023 3:40 PM * Full Code Date Activated Date Inactivated Comments 11/11/2022 3:47 PM 11/12/2022 7:50 PM * Full Code Date Activated Date Inactivated Comments 11/11/2022 3:47 PM 11/11/2022 3:47 PM * Full Code Date Activated Date Inactivated Comments 12/17/2020 11:59 AM 12/26/2020 7:35 PM Care Teams Foreign Languages Department Chair Relationship Specialty Start Date End Date Annette Dailey NP [address] [facility] [address] [place] [address] PCP - General Internal Medicine 11/23/22 Shade Arrington Jr., MD [address] [place] [address] Consulting Physician Cardiovascular Disease 09/07/20 Juanpablo Reinoso MD [address] [place] [address] Consulting Physician Cardiovascular Disease 12/13/20 Ritesh Guardado MD [address] [place] [address] Referring Physician Cardiovascular Disease 12/26/20 [place] [address] [address] Surgeon Orthopedic Surgery 12/26/20 [place] [address] [address] Consulting Physician Gastroenterology 12/26/20 Jam Le MD [address] [place] [address] Consulting Physician Cardiology 11/29/23 Miscellaneous, Not In File 11/29/23
--- OUTSIDE RECORDS SUMMARY | 2024-09-05 17:06 | XMS_ITS | Continuity of Care Document ---
Author Organization [facility] Address [address] [place] [address] Phone Care Team Providers Care Hair Cutter Name Role Phone Justin Walden Unavailable Unavailable Procedures Procedure Date Post-op Follow-up Visit Remove Cataract, Insert Lens Office/outpatient Visit, Est IOLMaster Eye Exam, New Patient Refraction Advance Directives Directive Yes / No Effective Date File Name No Information Encounters Encounter Description Practice Location Reason(s) For Visit Diagnoses Date Provider Providers Copied on Encounter [facility], [address] [place] [address] [address], [place], [place], [id number], tel:[phone] [facility] No Information 0 Win Anderson. [address] [facility] , [address], [place], [place], [facility], . tel:[phone] [facility], [address] [place] [address] [address], [place], [place], [id number], [place] tel:[phone] [facility] No Information 0 Win Anderson. [address] [facility] , [address], [place], [place], [facility], [place]. tel:[phone] Office/outpat ient Visit, Est [facility], [address] [place] [address] [address], [place], [place], [id number], [place] tel:[phone] [facility] No Information 9-201 0 Win Anderson. Critical access hospital[facility] , [address], [place], [place], [facility], [place]. tel:[phone] Referring Provider: Justin Ferrari, Critical access hospital[facility] [address], [place], [place], [facility]. tel:[phone] [facility], [address], [place], [place], [id number], tel:[phone] [facility] No Information 2-201 0 Ángel Ambriz. Critical access hospital1 [facility] [address], [place], [place], [facility], [place]. tel:[phone] Family History Family Member Type Diagnosis Age At Onset No Information Payers Payer name Insurance type Covered democrat ID Authoriza tion(s) No Information Social History Type Description Quantity Date Captured Comments Sex Female Smoking Status No Information Chief Complaint And Reason For Visit No Information Reason For Referral Reason For Referral No Information History Of Present Illness Encounter Date Complaint History Of Prese nt Illness No Information Functional Status Date Functional Assessmen t No Information Instructions Date Instruction Additional Infor mation No Information Assessments Type Assessment Date No Information Patient Care Teams Name Effective Dates (start - stop) Status Members No Information
--- OUTSIDE RECORDS SUMMARY | 2024-09-05 17:06 | XMS_ITS | Encounter Summary ---
Author Organization [facility] Healthcare Address [address] [place] [address] Care Team Providers Care Fish Butcher Name Role Phone Murphy Diaz MD, Shade Monson Unavailable [phone] Juanpablo Reinoso MD Unavailable Ritesh Guardado MD Unavailable Duke Dunlap MD Unavailable [phone] Venkat Laguerre MD Unavailable Annette Dailey NP Primary Care Provider Jam Le MD Unavailable [phone] Miscellaneous, Not In File Unavailable Unava ilable Esther Martínez MA Unavailable Unavailable Lesvia Aranda MA Unavailable [phone] Esther Martínez MA Unavailable Unavailable Neda Hanson MA Unavailable Encounter Details Date Type Department Care Team (Late st Contact Info) Description 09/09/2023 Orders Only [facility] Health Information Management [address] [place] [address] Gurinder Vasquez MD [address] [facility] [place] [address] Social History Tobacco Use Types Packs/Day Years Used Date Smoking Tobacco: Never Smokeless Tobacco: Never Alcohol Use Standard Drinks/Week Comments Never 0 (1 standard drink = 0.6 oz pur e alcohol) Social Connection and Isolat ion Panel [NHANES] Answer Date Recorded In a typical week, how many times do you talk on the phone with family, friends, or neighbors? More than three times a week 10/02/2021 How often do you get togethe r with friends or relatives? More than three times a week 10/02/2021 How often do you attend chur ch or mu-ism services? More than 4 times per year 10/02/2021 Do you belong to any clubs o r organizations such as religion groups, unions, fraternal or athletic groups, or school groups? No 10/02/2021 How often do you attend meet ings of the clubs or organizations you belong to? Never 10/02/2021 Are you , , di vorced, , never , or living with a partner? 10/02/2021 AUDIT-C Answer Date Recorded Q1: How often [...] care, and heating? Not hard at all 10/02/2021 PHQ-2 Answer Date Recorded PHQ-2 Total Score (If total score is 3 or more points, staff should administer the PHQ-9) 0 06/21/2023 Hunger Vital Sign Answer Date Recorded Within the past 12 months, y ou worried that your food would run out before you got the money to buy more. Never true 12/14/19 21 Within the past 12 months, t he food you bought just didn't last and you didn't have money to get more. Never true 12/13/2020 PRAPARE - Transportation Answer Date Re corded In the past 12 months, has l ack of transportation kept you from medical appointments or from getting medications? No 09/23 In the past 12 months, has l ack of transportation kept you from meetings, work, or from getting things needed for daily living? No 10/02/2021 Housing Stability Vital Sign Answer Cordell e Recorded In the last 12 months, was t here a time when you were not able to pay the mortgage or rent on time? No 10/02/2021 In the last 12 months, how many places have you lived? 1 10/02/2021 In the last 12 months, was t here a time when you did not have a steady place to sleep or slept in a [place] [facility] [place] (including now)? 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 Not on file Not on file Not on file documented as of this encounter Plan of Treatment Not on file documented as of this encounter Procedures Procedure Name Priority Date/Time Associated Diagnosis Comments CARDIOLOGY DOCUMENT SCAN 09/09/2023 documented in this encounter Results * Cardiology Document Scan (09/09/2023) Anatomical Region Laterality Modality Other us Gurinder Vasquez MD [facility] CARDIAC SERVICES PROCEDURE S Edited Result - Final documented in this encounter Visit Diagnoses Not on filedocumented in this encounter Additional Health Concerns Infection Onset Date Last Indicated Resolved Time COVID: Suspected 10/11/2023 10/11/2023 10/11/2023 3:25 PM CDT documented as of this encounter Care Teams Fish Butcher Relationship Specialty Start Date End Date Annette Dailey NP [address] [facility] [address] [place] [address] PCP - General Internal Medicine 11/23/22 Shade Arrington Jr., MD [address] [place] [address] Consulting Physician Cardiovascular Disease 09/07/20 Juanpablo Reinoso MD [address] [place] [address] Consulting Physician Cardiovascular Disease 12/13/20 Ritesh Guardado MD [address] [place] [address] Referring Physician Cardiovascular Disease 12/26/20 [place] [address] [address] Surgeon Orthopedic Surgery 12/26/20 [place] [address] [address] Consulting Physician Gastroenterology 12/26/20 Jam Le MD [address] [place] [place] [address] Consulting Physician Cardiology 11/29/23 Miscellaneous, Not In File 11/29/23 Esther Martínez MA [address] [place] [address] [address] [place] [address] [employer] Store Shopper 12/14/23 12/14/23 Lesvia Aranda MA [address] [place] [address] [address] [place] [address] [employer] 12/14/23 01/09/24 Esther Martínez MA [address] [facility] [address] [place] [address] [employer] Care Store [employer]pper 07/05/24 07/09/24 Neda Hanson MA [address] [facility] [address] [place] [address] [employer] Store [employer]pper 08/24/24 08/24/24 documented as of this encounter
--- OUTSIDE RECORDS SUMMARY | 2024-09-05 17:06 | XMS_ITS | Patient Health Summary ---
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 This disclosure is being madepursuant to the Care Everywhere program and may not contain all information available regarding this patient. Last updated 18.[facility] Allergies * Contrast-Iodinated Agents For Ct/Other(Old ivp dye from 0291-0256's. No trouble with IV DYE from recent cardiac caths) * Cyclobenzaprine * Penicillins * Ranexa Medications * Be aware that medications may not be up to date on this document. Alwaysverify current medications with the patient. * aspirin EC (ECOTRIN) 325 MG tablet Take 325 mg by mouth once daily. * ezetimibe-simvastatin (VYTORIN) 10-40 MG tablet Take 1 Tab by mouth at bedtime. * diltiazem SR 24hr (DILACOR XR) 180 MG capsule Take 180 mg by mouth once daily. * metoprolol succinate XL 24hr (TOPROL XL) 100 MG tablet Take 100 mg by mouth once daily. * clopidogrel (PLAVIX) 75 MG tablet Take 75 mg by mouth once daily. * lisinopril (PRINIVIL; ZESTRIL) 40 MG tablet Take 40 mg by mouth once daily. * furosemide (LASIX) 40 MG tablet Take 40 mg by mouth once daily. * insulin detemir (LEVEMIR) injection Inject 52 Units subcutaneously 2 times daily. * B Zymwfzu-J-Xhcgt Acid (VITAMIN B COMPLEX WITH C) TABS Take 1 Tab by mouth once daily. * [place]-3 Fatty Acids (FISH OIL) 300 MG CAPS Take 3 Caps by mouth. * ALPRAZolam (XANAX) 0.5 MG tablet Take 0.5 mg by mouth 3 times daily as needed. * amitriptyline (ELAVIL) 50 MG tablet Take 50 mg by mouth every evening. * glipiZIDE (GLUCOTROL) 5 MG tablet Take 5 mg by mouth daily before breakfast. * potassium chloride 40 MEQ/15ML (20%) solution Take 40 mEq by mouth 2 times daily. * magnesium oxide (MAG-OX) 400 MG tablet Take 400 mg by mouth once daily. * montelukast (SINGULAIR) 10 MG tablet Take 10 mg by mouth once daily. * nitroglycerin (NITROLINGUAL) 0.4 MG/SPRAY spray Dissolve 1 [place] under the tongue every 5 minutes as needed. * hydrocodone-acetaminophen (NORCO) 10-325 MG tablet Take 1 Tab by mouth every 6 hours as needed. Social History Tobacco Use Types Packs/Day Years [...] Mass Index 39.51 10/05/2016 2:38 PM CDT Procedures * XR THORACIC SPINE 2VW(Performed 10/05/2016) * XR LUMBAR SPINE 2 OR 3VW(Performed 10/05/2016) * XR THORACIC SPINE 2VW(Performed 04/08/2016) * XR LUMBAR SPINE 2 OR 3VW(Performed 01/13/2016) * XR THORACIC SPINE 2VW(Performed 01/13/2016) * GLUCOSE ACCUCHECK(Performed 01/03/2016) * GLUCOSE ACCUCHECK(Performed 01/03/2016) * GLUCOSE ACCUCHECK(Performed 01/03/2016) * BASIC METABOLIC PANEL (CALCIUM TOTAL)(Performed 01/03/2016) * MAGNESIUM BLOOD(Performed 01/03/2016) * PHOSPHORUS BLOOD(Performed 01/03/2016) * CBC W AUTO DIFFERENTIAL(Performed 01/03/2016) * CBC W AUTO DIFFERENTIAL(Performed 01/03/2016) * GLUCOSE ACCUCHECK(Performed 01/02/2016) * GLUCOSE ACCUCHECK(Performed 01/02/2016) * XR THORACIC SPINE 2VW(Performed 01/02/2016) * XR LUMBAR SPINE 2 OR 3VW(Performed 01/02/2016) * GLUCOSE ACCUCHECK(Performed 01/02/2016) * GLUCOSE ACCUCHECK(Performed 01/02/2016) * BASIC METABOLIC PANEL (CALCIUM TOTAL)(Performed 01/02/2016) * PHOSPHORUS BLOOD(Performed 01/02/2016) * MAGNESIUM BLOOD(Performed 01/02/2016) * CBC W AUTO DIFFERENTIAL(Performed 01/02/2016) * CBC W AUTO DIFFERENTIAL(Performed 01/02/2016) * URINALYSIS W/MICROSCOPIC NO CULTURE(Performed 01/01/2016) * XR FOOT LEFT 3VW OR MORE(Performed 01/01/2016) * XR HUMERUS LEFT 2VW OR MORE(Performed 01/01/2016) * XR SHOULDER LEFT 2VW OR MORE(Performed 01/01/2016) * CT CHEST ABDOMEN PELVIS W CONT(Performed 01/01/2016) * CT LUMBAR SPINE WO CONTRAST(Performed 01/01/2016) * CT HEAD WO CONTRAST(Performed 01/01/2016) * CT THORACIC SPINE WO CONTRAST(Performed 01/01/2016) * CT CERVICAL SPINE WO CONTRAST(Performed 01/01/2016) * BASIC METABOLIC PANEL (CALCIUM TOTAL)(Performed 01/01/2016) * XR CHEST 1VW PORTABLE(Performed 01/01/2016) * CK + CKMB PANEL(Performed 01/01/2016) * TROPONIN I(Performed 01/01/2016) * COMPREHENSIVE METABOLIC PANEL(Performed 01/01/2016) * LIPASE BLOOD(Performed 01/01/2016) * AMYLASE BLOOD(Performed 01/01/2016) * PT-INR [facility](Performed 01/01/2016) * CBC W AUTO DIFFERENTIAL(Performed 01/01/2016) * CBC W AUTO DIFFERENTIAL(Performed 01/01/2016) * TYPE + SCREEN PANEL(Performed 01/01/2016) * EKG 12-LEAD(Performed 01/01/2016) * CREATININE BLOOD - POCT (IP) [facility](Performed 01/01/2016) * TYPE + SCREEN PANEL(Performed 08/21/2015) * TROPONIN I(Performed 08/21/2015) * COMPREHENSIVE METABOLIC PANEL(Performed 08/21/2015) * CBC W/O DIFFERENTIAL(Performed 08/21/2015) * PTT [facility](Performed 08/21/2015) * PT-INR [facility](Performed 08/21/2015) * CT BRAIN STROKE(Performed 08/21/2015) * GLUCOSE - POINT OF CARE (AMB) [facility](Performed 08/21/2015) * GLUCOSE - POINT OF CARE (AMB) [facility](Performed 08/21/2015) * EKG 12-LEAD(Performed 08/21/2015) * CULTURE URINE(Performed 04/30/2014) * CARDIAC RHYTHM STRIP ORDER(Performed 02/18/2012) * CARDIAC EKG ORDER(Performed 02/18/2012) * TROPONIN I(Performed 02/17/2012) * TROPONIN I(Performed 02/17/2012) * URINALYSIS REFLEX MICROSCOPIC REFLEX CULTURE(Performed 02/16/2012) * CULTURE URINE(Performed 02/16/2012) * XR CHEST 1VW PORTABLE(Performed 02/16/2012) Performed for Chest pain * TROPONIN I(Performed 02/16/2012) * PTT(Performed 02/16/2012) * PT-INR(Performed 02/16/2012) * MAGNESIUM BLOOD(Performed 02/16/2012) * MYOGLOBIN BLOOD(Performed 02/16/2012) * COMPREHENSIVE METABOLIC PANEL(Performed 02/16/2012) * CBC W AUTO DIFFERENTIAL(Performed 02/16/2012) * EKG 12-LEAD(Performed 02/16/2012) Performed for Chest pain * CARDIAC EKG ORDER(Performed 09/16/2011) * CARDIAC RHYTHM STRIP ORDER(Performed 09/16/2011) * CARDIAC PROCEDURE ORDER(Performed 09/16/2011) * CARDIAC EKG ORDER(Performed 09/16/2011) * GLUCOSE - POINT OF CARE(Performed 09/15/2011) * IP CONSULT TO REHAB(Performed 09/15/2011) * GLUCOSE - POINT OF CARE(Performed 09/15/2011) * BASIC METABOLIC PANEL (CALCIUM TOTAL)(Performed 09/15/2011) * CBC W AUTO DIFFERENTIAL(Performed 09/15/2011) * GLUCOSE - POINT OF CARE(Performed 09/14/2011) * IP CONSULT TO PASTORAL CARE(Performed 09/14/2011) * PTT(Performed 09/14/2011) * GLUCOSE - POINT OF CARE(Performed 09/14/2011) * ACT - POINT OF CARE(Performed 09/14/2011) * CARDIAC CATH(Performed 09/14/2011) * ACT - POINT OF CARE(Performed 09/14/2011) * CARDIAC CATH CONSULT(Performed 09/14/2011) Results * XR THORACIC SPINE 2VW (10/05/2016 2:01 PM CDT) Only the most recent of4 resultswithin the time period is included. Anatomical Region Laterality Modality Spine Other Impressions 10/06/2016 9:08 AM CDT Impression: 1. T5, T6, T9, and T10 vertebral body fractures, unchanged and better seen on CT. 2. L1 vertebral body compression fracture with 25% loss of height and no retropulsion, unchanged. Report dictated by Yrn Alaniz M.D. (resident physician in radiology). I, Dr. GRIS SO M.D. have personally reviewed and interpreted this examination/study. This report was electronically signed by GRIS SO M.D. on 10/06/2016 9:08 AM . Narrative 10/06/2016 9:08 AM CDT Exam: 1. Thoracic spine, 2 views 2. Lumbar spine, 2 views Date: 10/05/2016 2:01 PM History: follow up Comparison: Thoracic spine radiographs dated 04/08/2016 and lumbar spine radiographs dated 01/13/2016. Findings: Thoracic spine: The sagittal alignment is normal. The T5 inferior endplate fracture, T6 posterior vertebral body fracture, T9 inferior endplate fracture, and T9-T10 anterior enthesophyte fractures are better seen on prior thoracic spine CT dated 01/01/2016. The remainder of the vertebral bodies are normal in height without evidence of acute compression deformity. There is multilevel degenerative disc disease in the thoracic spine with anterior osteophytes. There is diffuse idiopathic skeletal hyperostosis in the mid to lower thoracic spine, unchanged. Post median sternotomy changes are noted with broken 2 proximal median sternotomy wires. Mediastinal clips are noted. Postcholecystectomy clips are present in the right upper quadrant. Lumbar spine: There is sacralization of the L5 vertebral body, unchanged. Grade 1 anterolisthesis of L4-L5 is unchanged. A compression fracture of the L1 vertebral body with 25% loss of height and no retropulsion is unchanged. No new fracture is identified. There is mild loss of disc height at L4-5. Multilevel facet osteoarthritis is most pronounced at L4-5. Atherosclerotic calcification is present in the abdominal aorta. Procedure Note Gris So MD - 10/22/2017 Exam: 1. Thoracic spine, 2 views 2. Lumbar spine, 2 views Date: 10/05/2016 2:01 PM History: follow up Comparison: Thoracic spine radiographs dated 04/08/2016 and lumbar spineradiographs dated 01/13/2016. Findings: Thoracic spine: The sagittal alignment is normal. The T5 inferior endplate fracture, [id number] vertebral body fracture, T9 inferior endplate fracture, andT9-T10 anterior enthesophyte fractures are better seen on prior thoracicspine CT dated 01/01/2016. The remainder of the vertebral bodies are normal in height without evidence of acutecompression deformity. There is multilevel degenerative disc disease inthe thoracic spine with anterior osteophytes. There is diffuse idiopathicskeletal hyperostosis in the mid to lower thoracic spine, unchanged. Post median sternotomy changes are notedwith broken 2 proximal median sternotomy wires. Mediastinal clips arenoted. Postcholecystectomy clips are present in the right upperquadrant. Lumbar spine: There is sacralization of the L5 vertebral body, unchanged. Grade 1anterolisthesis of L4-L5 is unchanged. A compression fracture of the I2bqdpikmks body with 25% loss of height and no retropulsion is unchanged.No new fracture is identified. There is mild loss of disc height at L4-5. Multilevel facet osteoarthritis is mostpronounced at L4-5. Atherosclerotic calcification is present in theabdominal aorta. IMPRESSION Impression: 1. T5, T6, T9, and T10 vertebral body fractures, unchanged and better seenon CT. 2. L1 vertebral body compression fracture with 25% loss of height and noretropulsion, unchanged. Report dictated by Yrn Alaniz M.D. (resident physician in radiology). Dr. GRIS Hawley M.D. have personally reviewed and interpreted thisexamination/study. This report was electronically signed by GRIS SO M.D. on 10/06/20169:08 AM . Kev Dickinson MD DIAGNOSTIC IMAGING O RDERABLES * XR LUMBAR SPINE 2 OR 3VW (10/05/2016 2:01 PM CDT) Only the most recent of3 resultswithin the time period is included. Anatomical Region Laterality Modality Spine Other Impressions 10/06/2016 9:08 AM CDT Impression: 1. T5, T6, T9, and T10 vertebral body fractures, unchanged and better seen on CT. 2. L1 vertebral body compression fracture with 25% loss of height and no retropulsion, unchanged. Report dictated by Yrn Alaniz M.D. (resident physician in radiology). Dr. GRIS Hawley M.D. have personally reviewed and interpreted this examination/study. This report was electronically signed by GRIS SO M.D. on 10/06/2016 9:08 AM . Narrative 10/06/2016 9:08 AM CDT Exam: 1. Thoracic spine, 2 views 2. Lumbar spine, 2 views Date: 10/05/2016 2:01 PM History: follow up Comparison: Thoracic spine radiographs dated 04/08/2016 and lumbar spine radiographs dated 01/13/2016. Findings: Thoracic spine: The sagittal alignment is normal. The T5 inferior endplate fracture, T6 posterior vertebral body fracture, T9 inferior endplate fracture, and T9-T10 anterior enthesophyte fractures are better seen on prior thoracic spine CT dated 01/01/2016. The remainder of the vertebral bodies are normal in height without evidence of acute compression deformity. There is multilevel degenerative disc disease in the thoracic spine with anterior osteophytes. There is diffuse idiopathic skeletal hyperostosis in the mid to lower thoracic spine, unchanged. Post median sternotomy changes are noted with broken 2 proximal median sternotomy wires. Mediastinal clips are noted. Postcholecystectomy clips are present in the right upper quadrant. Lumbar spine: There is sacralization of the L5 vertebral body, unchanged. Grade 1 anterolisthesis of L4-L5 is unchanged. A compression fracture of the L1 vertebral body with 25% loss of height and no retropulsion is unchanged. No new fracture is identified. There is mild loss of disc height at L4-5. Multilevel facet osteoarthritis is most pronounced at L4-5. Atherosclerotic calcification is present in the abdominal aorta. Procedure Note Gris So MD - 10/22/2017 Exam: 1. Thoracic spine, 2 views 2. Lumbar spine, 2 views Date: 10/05/2016 2:01 PM History: follow up Comparison: Thoracic spine radiographs dated 04/08/2016 and lumbar spineradiographs dated 01/13/2016. Findings: Thoracic spine: The sagittal alignment is normal. The T5 inferior endplate fracture, G6xqhfxauxt vertebral body fracture, T9 inferior endplate fracture, andT9-T10 anterior enthesophyte fractures are better seen on prior thoracicspine CT dated 01/01/2016. The remainder of the vertebral bodies are normal in height without evidence of acutecompression deformity. There is multilevel degenerative disc disease inthe thoracic spine with anterior osteophytes. There is diffuse idiopathicskeletal hyperostosis in the mid to lower thoracic spine, unchanged. Post median sternotomy changes are notedwith broken 2 proximal median sternotomy wires. Mediastinal clips arenoted. Postcholecystectomy clips are present in the right upperquadrant. Lumbar spine: There is sacralization of the L5 vertebral body, unchanged. Grade 1anterolisthesis of L4-L5 is unchanged. A compression fracture of the U2xhgmuixak body with 25% loss of height and no retropulsion is unchanged.No new fracture is identified. There is mild loss of disc height at L4-5. Multilevel facet osteoarthritis is mostpronounced at L4-5. Atherosclerotic calcification is present in theabdominal aorta. IMPRESSION Impression: 1. T5, T6, T9, and T10 vertebral body fractures, unchanged and better seenon CT. 2. L1 vertebral body compression fracture with 25% loss of height and noretropulsion, unchanged. Report dictated by Yrn Alaniz M.D. (resident physician in radiology). I, Dr. GRIS SO M.D. have personally reviewed and interpreted thisexamination/study. This report was electronically signed by GRIS SO M.D. on 10/06/20169:08 AM . Kev Dickinson MD DIAGNOSTIC IMAGING O RDERABLES * (ABNORMAL) GLUCOSE ACCUCHECK (01/03/2016 4:35 PM CDT) Only the most recent of7 resultswithin the time period is included. Glucose, Fingerstick 256(H) 70-115mg/d L mg/dL [facility] ([place]) Comment:Computer Artist: AISLINN COLEMAN 01/03/2016 4:35 PM CDT Reggie Mondragon MD LAB - CHEMISTRY SIMI ARAIZA Performing Organization Address City/[facility] Co de Phone Number [facility] * CBC W AUTO DIFFERENTIAL (01/03/2016 5:00 AM CDT) Only the most recent of8 resultswithin the time period is included. Blood specimen (specimen) BLOOD SPECIMEN / Unknown 01/03/2016 5:[address] [facility] - 01/03/2016 5:42 AM CDT The following orders were created for panel order CBC w Differential. Procedure Abnormality Status --------- ------ CBC WITH DIFFERENTIAL[[id number]] Abnormal Final result Please view results for these tests on the individual orders. Elvis Jackson MD LAB - HEMATOLOGY [facility] Performing Organization Address City/[facility]/ZIP Co de Phone Number [address] * (ABNORMAL) BASIC METABOLIC PANEL (CALCIUM TOTAL) (01/03/2016 5:00 AM CDT) Only the most recent of4 resultswithin the time period is included. BUN 15 7 - 26 mg/dL [facility] Creatinine 0.8 0.6 - 1.2 mg/dL [facility] Sodium 134(L) 136 - 145 mmol/L [facility] Potassium 3.5 3.5 - 4.5 mmol/L [facility] Chloride 99 98 - 107 mmol/L [facility] CO2 23 22 - 29 mmol/L [facility] Glucose 284(H) 70 - 115 mg/dL [facility] Calcium 8.9 8.4 - 10.2 mg/dL [facility] Anion Gap 16 8 - 18 [facility] BUN/Creatinine Ratio 19 7 - 23 [facility] Osmolality Calculated 289 270 - 300 mOsm/kg [facility] eGFR >60 >60 mL/min/1.7 3 m2 [facility] Blood specimen (specimen) BLOOD SPECIMEN / Unknown 01/03/2016 5:00 AM CDT 01/03/2016 5:17 AM CDT Elvis Jackson MD LAB - CHEMISTRY SIMI ARAIZA [address] [phone] * PHOSPHORUS BLOOD (01/03/2016 5:00 AM CDT) Only the most recent of2 resultswithin the time period is included. Phosphorus 2.4 2.3 - 4.7 mg/dL [facility] Blood specimen (specimen) BLOOD SPECIMEN / Unknown 01/03/2016 5:00 AM CDT 01/03/2016 5:17 AM CDT Elvis Jackson MD LAB - CHEMISTRY SIMI ARAIZA [address] [phone] * MAGNESIUM BLOOD (01/03/2016 5:00 AM CDT) Only the most recent of3 resultswithin the time period is included. Magnesium 1.6 1.6 - 2.6 mg/dL [facility] Blood specimen (specimen) BLOOD SPECIMEN / Unknown 01/03/2016 5:00 AM CDT 01/03/2016 5:17 AM CDT Elvis Jackson MD LAB - CHEMISTRY SIMI ARAIZA [address] [phone] * (ABNORMAL) URINALYSIS W/MICROSCOPIC NO CULTURE (01/01/2016 4:06 PM CDT) Color UA Yellow Straw, Yellow, Colorless, Light Yellow [facility] Clarity UA Clear Clear [facility] Specific [place] UA >1.040(H) 1.001 - 1.030 [facility] pH UA 6.0 5.0 - 8.0 [facility] Protein UA 20 <=20 mg/dL [facility] Glucose UA >1000(A) Negative mg/dL [facility] Ketone UA Trace(A) Negative mg/dL [facility] Bilirubin UA Negative Negative mg/dL [facility] Blood UA Negative Negative [facility] Nitrite UA Negative Negative [facility] Leukocyte Esterase Negative Negative [facility] Urobilinogen UA <2.0 <2.0 mg/dL [facility] RBC UA 2 0 - 8 /HPF [facility] WBC UA 2 0 - 2 /HPF [facility] Squamous Epithelial Cells UA 1 0 - 1 /HPF [facility] Urine specimen (specimen) 01/01/2016 4:06 PM CDT 01/01/2016 4:12 PM CDT Narrative [facility] - 01/01/2016 4:31 PM CDT Specific gravity results confirmed by refractometer. Reggie Mondragon MD LAB - URINALYSIS [facility] [address] [phone] * XR FOOT LEFT 3VW OR MORE (01/01/2016 3:08 PM CDT) Anatomical Region Laterality Modality Ankle / Foot Other Impressions 01/01/2016 4:58 PM CDT IMPRESSION: No acute fracture or dislocation identified. Diffuse osseous demineralization. Dictated by Ludmila Leong MD (resident physician in radiology). This report was approved by Ludmila Leong M.D. on 01/01/2016 4:[address] NEERAJ Hawley M.D. have personally reviewed and interpreted this examination/study. This report was electronically signed by NEERAJ MEJÍA M.D. on 01/01/2016 4:58 PM . Narrative 01/01/2016 4:58 PM CDT EXAMINATION: PX FOOT LEFT 3+ VW HISTORY: trauma COMPARISON: No prior study is available for comparison. FINDINGS: The osseous structures are intact and well aligned without acute fracture or dislocation. The joint spaces are preserved. The bones are diffusely demineralized. Atherosclerotic disease is present. Procedure Note Neeraj Mejía MD - 10/23/2017 EXAMINATION: PX FOOT LEFT 3+ VW HISTORY: trauma COMPARISON: No prior study is available for comparison. FINDINGS: The osseous structures are intact and well aligned without acute fractureor dislocation. The joint spaces are preserved. The bones are diffuselydemineralized. Atherosclerotic disease is present. IMPRESSION IMPRESSION: No acute fracture or dislocation identified. Diffuse osseous demineralization. Dictated by Ludmila Leong MD (resident physician in radiology). This report was approved by Ludmila Leong M.D. on 01/01/2016 4:[address] NEERAJ Hawley M.D. have personally reviewed and interpreted thisexamination/study. This report was electronically signed by NEERAJ MEJÍA M.D. on 01/01/20164:58 PM . Reggie Mondragon MD DIAGNOSTIC IMAGING O RDERABLES * XR HUMERUS LEFT 2VW OR MORE (01/01/2016 3:08 PM CDT) Anatomical Region Laterality Modality Upper Extremity Other Impressions 01/01/2016 4:58 PM CDT IMPRESSION: No acute fracture or dislocation identified. Dictated by Ludmila Leong MD (resident physician in radiology). This report was approved by Ludmila Leong M.D. on 01/01/2016 4:[address] NEERAJ Hawley M.D. have personally reviewed and interpreted this examination/study. This report was electronically signed by NEERAJ MEÍJA M.D. on 01/01/2016 4:58 PM . Narrative 01/01/2016 4:58 PM CDT EXAMINATION: 1. PX SHOULDER LEFT 2 VW MIN 2. PX HUMERUS LEFT 2+ VW HISTORY: pain COMPARISON: No prior study is available for comparison. FINDINGS: 1. Shoulder Exam is limited by patient body habitus. The osseous structures are intact without acute fracture. The glenohumeral and acromioclavicular joints are in anatomic alignment. Bone density and texture are normal. 2. Humerus The osseous structures are intact and well aligned without evidence of acute fracture. Bone density and texture are normal. There is no soft tissue swelling. Procedure Note Neeraj Mejía MD - 10/23/2017 EXAMINATION: 1. PX SHOULDER LEFT 2 VW MIN 2. PX HUMERUS LEFT 2+ VW HISTORY: pain COMPARISON: No prior study is available for comparison. FINDINGS: 1. Shoulder Exam is limited by patient body habitus. The osseous structures are intactwithout acute fracture. The glenohumeral and acromioclavicular joints arein anatomic alignment. Bone density and texture are normal. 2. Humerus The osseous structures are intact and well aligned without evidence ofacute fracture. Bone density and texture are normal. There is no softtissue swelling. IMPRESSION IMPRESSION: No acute fracture or dislocation identified. Dictated by Ludmila Leong MD (resident physician in radiology). This report was approved by Ludmila Leong M.D. on 01/01/2016 4:[address] NEERAJ Hawley M.D. have personally reviewed and interpreted thisexamination/study. This report was electronically signed by NEERAJ MEJÍA M.D. on 01/01/20164:58 PM . Reggie Mondragon MD DIAGNOSTIC IMAGING O RDERABLES * XR SHOULDER LEFT 2VW OR MORE (01/01/2016 3:07 PM CDT) Anatomical Region Laterality Modality Upper Extremity Other Impressions 01/01/2016 4:58 PM CDT IMPRESSION: No acute fracture or dislocation identified. Dictated by Ludmila Leong MD (resident physician in radiology). This report was approved by Ludmila Leong M.D. on 01/01/2016 4:[address] NEERAJ Hawley M.D. have personally reviewed and interpreted this examination/study. This report was electronically signed by NEERAJ MEJÍA M.D. on 01/01/2016 4:58 PM . Narrative 01/01/2016 4:58 PM CDT EXAMINATION: 1. PX SHOULDER LEFT 2 VW MIN 2. PX HUMERUS LEFT 2+ VW HISTORY: pain COMPARISON: No prior study is available for comparison. FINDINGS: 1. Shoulder Exam is limited by patient body habitus. The osseous structures are intact without acute fracture. The glenohumeral and acromioclavicular joints are in anatomic alignment. Bone density and texture are normal. 2. Humerus The osseous structures are intact and well aligned without evidence of acute fracture. Bone density and texture are normal. There is no soft tissue swelling. Procedure Note Neeraj Mejía MD - 10/23/2017 EXAMINATION: 1. PX SHOULDER LEFT 2 VW MIN 2. PX HUMERUS LEFT 2+ VW HISTORY: pain COMPARISON: No prior study is available for comparison. FINDINGS: 1. Shoulder Exam is limited by patient body habitus. The osseous structures are intactwithout acute fracture. The glenohumeral and acromioclavicular joints arein anatomic alignment. Bone density and texture are normal. 2. Humerus The osseous structures are intact and well aligned without evidence ofacute fracture. Bone density and texture are normal. There is no softtissue swelling. IMPRESSION IMPRESSION: No acute fracture or dislocation identified. Dictated by Ludmila Leong MD (resident physician in radiology). This report was approved by Ludmila Leong M.D. on 01/01/2016 4:[address] NEERAJ Hawley M.D. have personally reviewed and interpreted thisexamination/study. This report was electronically signed by NEERAJ MEJÍA M.D. on 01/01/20164:58 PM . Reggie Mondragon MD DIAGNOSTIC IMAGING O RDERABLES * CT CHEST ABDOMEN PELVIS W CONT (01/01/2016 2:19 PM CDT) Anatomical Region Laterality Modality Chest, Abdomen, Pelvis Other Impressions 01/01/2016 3:50 PM CDT IMPRESSION: 1. Multiple bilateral rib fractures as above. No pneumothorax. 2. Posterior inferior endplate T5 vertebral body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 sinus rhythm with sinus arrhythmia Iferolateral STchanges Abnormal ECG When compared with ECG of 21-AUG-2015 07:05, inferolateral ST elevatiojn is now present Confirmed by MD Mallory, Sam ([id number]), editor city ABHINAV KEITH ([id number]) on 01/22/2016 6:47:08 PM Referred By: REFERRING NO Confirmed By:Sam Tejada MD 01/01/2016 Reggie Mondragon MD ECG ORDERABLES [facility] RAD[facility] * PTT [facility] (08/21/2015 6:55 AM VENDING ATTENDANT) APTT 25.6 23.0 - 38.4 Seconds [facility] Comment:Suggested therapeuti c range for full dose I.V. heparin therapy for venous thromboembolism is 66.0-91.0 seconds. Blood specimen (specimen) BLOOD SPECIMEN / Unknown 08/21/2015 6:55 AM VENDING ATTENDANT 08/21/2015 7:15 AM VENDING ATTENDANT Narrative [facility] - 08/21/2015 7:29 AM VENDING ATTENDANT Is patient on Heparin, Argatroban or Dabigatran?->N Doug Aviles MD LAB - COAGULATION ORDERABLES [address] [phone] * (ABNORMAL) CBC W/O DIFFERENTIAL (08/21/2015 6:55 AM VENDING ATTENDANT) WBC 12.5(H) 3.5 - 10.5 10 3/uL [facility] RBC 5.14(H) 3.90 - 5.00 10 6/uL [facility] Hemoglobin 14.7 12.0 - 15.5 g/dL [facility] Hematocrit 44.5 35.0 - 45.0 % [facility] MCV 86.6 81.0 - 97.0 fL [facility] MCH 28.6 28.0 - 34.0 pg [facility] MCHC 33.0 32.0 - 36.0 g/dL [facility] Platelet Count 359 150 - 400 10 3/uL [facility] RDW-SD 45.1 36.0 - 50.0 fL [facility] RDW-CV 14.5 11.2 - 14.8 % [facility] MPV 9.7 9.3 - 12.8 fL [facility] nRBC Absolute 0.00 0 10 3/uL [facility] nRBC Auto 0.0 0 /100 WBC [facility] Blood specimen (specimen) BLOOD SPECIMEN / Unknown 08/21/2015 6:55 AM VENDING ATTENDANT 08/21/2015 7:15 AM VENDING ATTENDANT Doug Aviles MD LAB - HEMATOLOGY O RDERABLES [address] [phone] * CT BRAIN STROKE PROTOCOL (08/21/2015 6:51 AM VENDING ATTENDANT) Anatomical Region Laterality Modality Head Other Impressions 08/21/2015 7:26 AM VENDING ATTENDANT IMPRESSION: 1. No acute intracranial hemorrhage, significant mass effect, or midline shift. Preliminary results reported by Dr. Mccormick to Dr. Wright on 08/21/2015 at 7:07 AM. This report was electronically signed by HUGO DUBOSE M.D. on 08/21/2015 7:26 AM . Narrative 08/21/2015 7:26 AM VENDING ATTENDANT EXAMINATION: Computed tomography (CT) of the head without contrast HISTORY: Code stroke. TECHNIQUE: CT of the head was performed without contrast according to standard protocol. FINDINGS: No prior study is available for comparison. No acute intra- or extra-axial fluid collections are identified. Mild cerebral volume loss. Periventricular white matter hypoattenuation is present which is nonspecific but can be seen in the setting of small vessel ischemic disease. Small focal areas of hypoattenuation in the basal ganglia may represent lacunar infarcts. Atherosclerosis of the vertebral and cavernous carotid arteries noted. The ventricles are of normal size, shape, and morphology. The basal cisterns are patent. No mass effect or midline shift is seen. The manning-white matter differentiation is normal. Bilateral lens replacements. Otherwise, the visualized portions of the orbits, paranasal sinuses, and mastoids appear normal. No acute fracture is identified. Procedure Note Hugo Dubose MD - 10/23/2017 EXAMINATION: Computed tomography (CT) of the head without contrast HISTORY: Code stroke. TECHNIQUE: CT of the head was performed without contrast according tostandard protocol. FINDINGS: No prior study is available for comparison. No acute intra- or extra-axial fluid collections are identified. Mildcerebral volume loss. Periventricular white matter hypoattenuation ispresent which is nonspecific but can be seen in the setting of smallvessel ischemic disease. Small focal areas of hypoattenuation in the basal ganglia may represent lacunar infarcts.Atherosclerosis of the vertebral and cavernous carotid arteries noted. Theventricles are of normal size, shape, and morphology. The basal cisternsare patent. No mass effect or midline shift is seen. The manning-white matter differentiation is normal.Bilateral lens replacements. Otherwise, the visualized portions of theorbits, paranasal sinuses, and mastoids appear normal. No acute fractureis identified. IMPRESSION IMPRESSION: 1. No acute intracranial hemorrhage, significant mass effect, or midlineshift. Preliminary results reported by Dr. Mccormick to Dr. Wright on 08/21/2015 at7:07 AM. This report was electronically signed by HUGO DUBOSE M.D. on 08/21/20157:26 AM . Garry Rodrigues MD CT ORDERABLES * GLUCOSE - POINT OF CARE (AMB) [facility] (08/21/2015 6:46 AM VENDING ATTENDANT) Only the most recent of2 resultswithin the time period is included. Doug Aviles MD LAB - POINT OF CAR E ORDERABLES [facility] RAD[facility] * CULTURE URINE (04/30/2014 4:31 PM CDT) Only the most recent of2 resultswithin the time period is included. Culture Urine Less than 10,000 CFU/ML of Normal Urogenital/ Skin Franny after 48 Hours [facility] Comment:. Urine specimen (specimen) URINE SPECIMEN OBTAINED BY CLEAN CATCH PROCEDURE / Unknown 04/30/2014 4:31 PM CDT 04/30/2014 9:40 PM CDT Narrative [facility] - 05/02/2014 11:09 AM CDT ZeeshanSpecwongn#[id number] Zeeshan Loc/Rm/Bed: ICU/ICU/05 CLN CATCH U Historical Provider LAB - MICROBIOLOG Y ORDERABLES [facility] [address] [place] [address] * CARDIAC RHYTHM STRIP ORDER (02/18/2012 4:55 PM CDT) Only the most recent of2 resultswithin the time period is included. Narrative Transcriptions Document, Scanned - 02/18/2012 4:55 PM CDT Scanned Document CARDIAC SERVICES ORD ERABLES * CARDIAC EKG ORDER (02/18/2012 4:55 PM CDT) Only the most recent of3 resultswithin the time period is included. Narrative Transcriptions Document, Scanned - 02/18/2012 4:55 PM CDT Scanned Document CARDIAC SERVICES ORD ERABLES * (ABNORMAL) URINALYSIS ROUTINE W/REFLEX TO CULTURE (02/16/2012 5:32 PM CDT) Color UA DK YELLOW [facility] Character UA CLOUDY [facility] Specific [place] UA 1.031(H) 1.005 - 1.03 [facility] pH UA 5.0 4.6 - 8.0 pH Units [facility] Leukocyte UA SMALL Negative /ul [facility] Nitrite UA NEGATIVE Negative [facility] Protein UA NEGATIVE Negative mg/dL [facility] Glucose UA NEGATIVE Normal mg/dL [facility] Ketone UA TRACE Negative mg/dL [facility] Urobilinogen UA 0.2 Normal Lu Units [facility] Bilirubin UA Negative Negative mg/dL [facility] Blood UA NEGATIVE Negative /ul [facility] WBC UA 10-20(H) <5 /HPF [facility] RBC UA 2-5 <5 /HPF [facility] Epithelial Cell UA 2-5 <5 /HPF [facility] Casts UA 20-50 hyaline(H) <2 /LPF [facility] Bacteria UA Many [facility] Urine Culture Reflex to culture, /a [id number] [facility] Urine specimen (specimen) URINE SPECIMEN OBTAINED BY CLEAN CATCH PROCEDURE / Unknown 02/16/2012 5:32 PM CDT 02/16/2012 5:32 PM CDT Jackson Turner DO LAB - URINALYSIS ORD ERABLES Performing Organization Address [facility] Co de Phone Number [facility] [address] [place] [address] * MYOGLOBIN BLOOD (02/16/2012 1:56 PM CDT) Myoglobin 36 <50.0 ng/mL [facility] Blood specimen (specimen) BLOOD SPECIMEN / Unknown 02/16/2012 1:56 PM CDT 02/16/2012 1:56 PM CDT Jackson Turner DO LAB - CHEMISTRY ORDE RABLES Performing Organization Address [facility] Co de Phone Number [facility] [address] [place] [address] * (ABNORMAL) PTT (02/16/2012 1:56 PM CDT) Only the most recent of2 resultswithin the time period is included. PTT <21.0(L) 24.0 - 32.0 seconds [facility] Blood specimen (specimen) BLOOD SPECIMEN / Unknown 02/16/2012 1:56 PM CDT 02/16/2012 1:56 PM CDT Jackson Turner DO LAB - COAGULATION OR DERABLES Performing Organization Address [facility] Co de Phone Number [facility] [address] [place] [address] * PT-INR (02/16/2012 1:56 PM CDT) PT 10.4 9.4 - 11.2 seconds [facility] INR 1.0 SEE BELOW [facility] Comment: 0.9-1.1 Normal 2.0-3.0 Conventional 2.5-3.5 Intensive Blood specimen (specimen) BLOOD SPECIMEN / Unknown 02/16/2012 1:56 PM CDT 02/16/2012 1:56 PM CDT Jackson Turner DO LAB - COAGULATION OR DERABLES Performing Organization Address [facility] de Phone Number [facility] [address] [place] [address] * CARDIAC PROCEDURE ORDER (09/16/2011 1:55 PM VENDING ATTENDANT) Narrative Transcriptions Document, Scanned - 09/16/2011 1:55 PM CST Scanned Document CARDIAC SERVICES ORD ERABLES * (ABNORMAL) GLUCOSE - POINT OF CARE (09/15/2011 11:33 AM VENDING ATTENDANT) Only the most recent of4 resultswithin the time period is included. Pathologist [facility] Glucose WB/POC 193(H) 75 - 110 mg/dl [facility] BLOOD SPECIMEN / Unknown 09/15/2011 11:33 AM VENDING ATTENDANT 09/16/2011 5:10 AM VENDING ATTENDANT Marbella Marrero MD LAB - POINT OF CARE ORDERABLES Performing Organization Address [facility] de Phone Number [facility] [address] [place] [address] * IP CONSULT TO CARDIOPULMONARY REHABILITATIO (09/15/2011 8:25 AM VENDING ATTENDANT) Narrative Nasra Arvizu RN - 09/15/2011 8:25 AM VENDING ATTENDANT Nasra Arvizu RN 09/15/2011 8:25 AM Cardiac rehab: Post-stent education, outpatient cardiac rehab, risk factor modification, and signs and symptoms of angina reviewed with this very receptive patient who verbalized understanding of all material presented. See education notes for specifics. Thank you. Procedure Note Nasra Arvizu, RN - 09/15/2011 8:25 AM CST Cardiac rehab: Post-stent education, outpatient cardiac rehab, riskfactor modification, and signs and symptoms of angina reviewed with thisvery receptive patient who verbalized understanding of all materialpresented. See education notes for specifics. Thank you. Marbella Marrero MD INPATIENT ANCILLARY CONSULT * IP CONSULT TO PASTORAL CARE (09/14/2011 7:56 PM VENDING ATTENDANT) Narrative Seamus Sethi - 09/14/2011 7:56 PM VENDING ATTENDANT Seamus Sethi 09/14/2011 7:56 PM Provided patient with a copy of the AD booklet. Patient to review later Procedure Note Seamus Sethi - 09/14/2011 7:55 PM CST Provided patient with a copy of the AD booklet. Patient to review later Marbella Marrero MD INPATIENT ANCILLARY CONSULT * (ABNORMAL) ACT - POINT OF CARE (09/14/2011 4:09 PM VENDING ATTENDANT) Only the most recent of2 resultswithin the time period is included. ACT POCT 244(A) 125 - 187 Seconds [facility] POCT TESTING QC Verified yes Yes [facility] POC T TESTING Blood specimen (specimen) BLOOD SPECIMEN / Unknown 09/14/2011 4:09 PM VENDING ATTENDANT Marbella Marrero MD LAB - POINT OF CARE ORDERABLES [facility] POCT TESTING [address] [place] [address] * Cardiac Cath Report-Epic Generated (09/14/2011 3:49 PM VENDING ATTENDANT) Narrative Marbella Marrero MD - 09/14/2011 3:49 PM VENDING ATTENDANT Marbella Marrero MD 09/14/2011 3:49 PM Elida [id number] Opened total rca hose inspector and patcher>3 months and placed 3 LANIE Asa for life plavix x 1 yr Procedure Note Marbella Marrero MD - 09/14/2011 3:48 PM CST Elida [id number] Opened total rca hose inspector and patcher>3 months and placed 3 LANIE Asa for life plavix x 1 yr Marbella Marrero MD CARDIAC SERVICES ORD ERABLES * CARDIAC CATH CONSULT (09/14/2011) 09/14/2011 Narrative Transcriptions Marbella Marrero MD - 09/15/2011 12:35 PM CST [facility] Cardiac Cath [facility] CARDIAC CATHETERIZATION PATIENT: OSVALDO RAE [facility]#: [id number] ADMIT DATE: 09/14/2011T#: [id number] PROCEDURE DATE: 09/14/2011DOB: 1945 PHYSICIAN: NANCY VinesM: YOEL REFERRING PHYSICIAN: MARBELLA MARRERO PROCEDURE: Percutaneous intervention. CLINICAL HISTORY: This is a 65 year old female with a history of coronaryartery disease status post CABG. The MELENDEZ to the LAD is open and her veingraft in the RCA has closed. She has a chronic total occlusion and shehad inferior wall ischemia. It is felt we should proceed to open up theRCA. She understood the potential risks and benefits including the riskof bleeding, infection, heart attack, stroke, perforation and evennecessitating emergency surgery. She understood these risks and wished toproceed. PROCEDURE: The patient was prepped and draped in the usual sterilefashion. 1% Lidocaine was used to infiltrate the region of the rightfemoral artery. A #8 Fr sheath was inserted in the right femoral arteryand a #6 Fr sheath was inserted in the left femoral artery. I put a #6 FrJL4 diagnostic in the left main and we initially tried an AL1 withside-holes but this would not fit so we went through ART 3.5 #8 Fr withside-holes and was able to engage that and took diagnostic picturessimultaneously. We then passed a Terumo Finecross and an 0.014 inchMiracle Bros 6, standard length wire was not able to cross inside myguide. It started coming out, so I then exchanged and put in an extrawire, a BMW and we put a 2.0 x 15 MiniTrek balloon. We inflated that forsupport. I then passed a fresh Miracle Bros 6 wire. With this I crossedand then I removed this while keeping the balloon inflated and into theRV branch. I passed a Confianza Pro down through. I took out the MiracleBros and through the Finecross I was able to cross up and taking picturesthrough the donor artery, I was able to make sure I was in the truelumen. We then passed the Finecross down and I was able to exchange thisfor a Grandslam and over the Grandslam we passed a 2.0 x 30. However wepre-dilated and I then removed this balloon and passed initially a 2.5 x33 mm Xience Prime LL in the mid to distal. We inflated at 14atmospheres. I then removed this and we passed a 2.25 x 28 mm Xiencedistal to the first one. We deployed that at 10 atmospheres. In theproximal area I placed a 2.75 x 33 mm Xience Prime LL. We deployed that.Taking final pictures both catheters simultaneously demonstrated that thecollaterals had become much less prominent from the left side. We hadgood result. The other point I would like to mention is this is a very complicated casewith two sheathes, two guides, two catheters and multiple wires. This wasa complicated case but successfully opened. IMPRESSION: Successful opening of a total occlusion greater than threemonths type C lesion. This was a complicated procedure but successfullyopened with three drug-eluting stents. The patient will be maintained onaspirin for life and Plavix or Effient for six months to a year,preferably a year. MARBELLA MARRERO MD UQ/PM #: [id number] CC:MD PETER HARDIN MD MEDICAL/SURGICAL CARDIAC CATHETERIZATION - [facility] Marbella Marrero MD ECHO ORDERABLES [facility] Care Teams Furniture Delivery Driver Relationship Specialty Start Date End Date Venkatesh Sullivan MD [address] [place] [address] PCP - General 01/13/18
--- OUTSIDE RECORDS SUMMARY | 2024-09-05 17:06 | XMS_ITS | Encounter Summary ---
Author Organization [facility] Healthcare Address [address] [place] [address] Care Team Providers Care Quantitative Equity Head Name Role Phone Murphy Diaz MD, Shade Monson Unavailable [phone] Juanpablo Reinoso MD Unavailable Ritesh Guardado MD Unavailable Duke Dunlap MD Unavailable [phone] Venkat Laguerre MD Unavailable Annette Dailey NP Primary Care Provider [phone] Jam Le MD Unavailable [phone] Miscellaneous, Not In File Unavailable Unava ilable Esther Martínez MA Unavailable Unavailable Lesvia Aranda MA Unavailable [phone] Esther Martínez MA Unavailable Unavailable Neda Hanson MA Unavailable Encounter Details Date Type Department Care Team (Late st Contact Info) Description 11/04/2023 Orders Only [facility] Health Information Management [address] [place] [id number] Scanning, Provider Social History Tobacco Use Types Packs/Day Years [...] often do you attend chur ch or anabaptist services? More than 4 times per year 10/02/2021 Do you belong to any clubs o r organizations such as cheondoism groups, unions, fraternal or athletic groups, or [...] points, staff should administer the PHQ-9) 0 10/07/2023 Hunger Vital Sign Answer Date Recorded Within [...] slept in a long-term (including now)? No 10/02/2021 Personal Safety Answer Date Recorded Have you ever been in or are you currently in a harmful physical or emotional relationship or is someone making you feel afraid or unsafe? 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 file Not on file Not on file documented as of this encounter Plan of Treatment Not on file documented as of this encounter Procedures Procedure Name Priority Date/Time Associated Diagnosis Comments CARDIOLOGY DOCUMENT SCAN 11/04/2023 documented in this encounter Results * Cardiology Document Scan (11/04/2023) Anatomical Region Laterality Modality Other us Provider Scanning CV CARDIAC SERVICES PROCEDURES Final Result documented in this encounter Visit Diagnoses Not on filedocumented in this encounter Care Teams Quantitative Equity Head Relationship Specialty Start Date End Date Annette Dailey NP [address] [address] PCP - General Internal Medicine 11/23/22 Shade Arrington Jr., MD [address] [place] [address] Consulting Physician Cardiovascular Disease 09/07/20 Juanpablo Reinoso MD [address] [place] [address] Consulting Physician Cardiovascular Disease 12/13/20 Ritesh Guardado MD [address] [place] [address] Referring Physician Cardiovascular Disease 12/26/20 [place] [address] [address] [address] Surgeon Orthopedic Surgery 12/26/20 [place] [address] [address] [address] Consulting Physician Gastroenterology 12/26/20 Jam Le MD [address] [place] [address] Consulting Physician Cardiology 11/29/23 Miscellaneous, Not In File 11/29/23 Esther Martínez MA [address] [place] [address] [address] [place] [address] ACO Care Bag Turner 12/14/23 12/14/23 Lesvia Aranda MA [address] [place] [address] [address] [place] [address] [employer] Turner 12/14/23 01/09/24 Esther Martínez MA [address] [place] [address] [address] [place] [address] ACO Care Bag Turner 07/05/24 07/09/24 Neda Hanson MA [address] [place] [address] [address] [place] [address] [employer]CO Care Bag Turner 08/24/24 08/24/24 documented as of this encounter
--- OUTSIDE RECORDS SUMMARY | 2024-09-05 17:06 | XMS_ITS | Encounter Summary ---
Author Organization [facility] Healthcare Address [address] [place] [address] Care Team Providers Care Patient Care Technician Name Role Phone Murphy Diaz MD, Shade Monson Unavailable [phone] Juanpablo Reinoso MD Unavailable Ritesh Guardado MD Unavailable Duke Dunlap MD Unavailable [phone] Venkat Laguerre MD Unavailable Annette Dailey NP Primary Care Provider [phone] Jam Le MD Unavailable [phone] Miscellaneous, Not In File Unavailable Unava ilable Esther Martínez MA Unavailable Unavailable Neda Hanson MA Unavailable Encounter Details Date Type Department Care Team (Late st Contact Info) Description 03/08/2024 Orders Only [facility] [facility] Information Management [address] [place] [id number] Scanning, Provider Social History Tobacco Use Types Packs/Day Years Used Date Smoking Tobacco: Never Smokeless Tobacco: Never Alcohol Use Standard Drinks/Week Comments Not Currently 0 (1 standard drink = 0.6 oz pur e alcohol) [facility] Utilities Answer Date Recorded In the past 12 months has e electric, gas, oil, or water company [...] any clubs o r organizations such as advent groups, unions, fraternal or athletic groups, or [...] place to sleep or slept in a longterm (including now)? No 11/18/2023 Personal Safety Answer Date Recorded Have you ever been in or are you currently in a harmful physical or emotional relationship or is someone making you feel afraid or unsafe? 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 Not on file Not on file documented as of this encounter Plan of Treatment Not on file documented as of this encounter Procedures Procedure Name Priority Date/Time Associated Diagnosis Comments SCAN - RADIOLOGY/IMAGING 03/08/2024 documented in this encounter Results * SCAN - RADIOLOGY/IMAGING (03/08/2024) Anatomical Region Laterality Modality Other us Provider Scanning Final Result documented in this encounter Visit Diagnoses Not on filedocumented in this encounter Care Teams Patient Care Technician Relationship Specialty Start Date End Date Annette Dailey NP [address] [facility] [address] [place] [address] PCP - General Internal Medicine 11/23/22 Shade Arrington Jr., MD [address] [place] [address] Consulting Physician Cardiovascular Disease 09/07/20 Juanpablo Reinoso MD [address] [place] [address] Consulting Physician Cardiovascular Disease 12/13/20 Ritesh Guardado MD [address] [place] [address] Referring Physician Cardiovascular Disease 12/26/20 [place] [address] [address] Surgeon Orthopedic Surgery 12/26/20 [place] [address] [address] Consulting Physician Gastroenterology 12/26/20 Jam Le MD [address] [place] [address] Consulting Physician Cardiology 11/29/23 Miscellaneous, Not In File 11/29/23 Esther Martínez MA [address] [place] [address] ACO Care Adhesive Primer 07/05/24 07/09/24 Neda Hanson MA [address] [place] [address] ACO Care Adhesive Primer 08/24/24 08/24/24 documented as of this encounter
--- OUTSIDE RECORDS SUMMARY | 2024-09-05 17:06 | XMS_ITS | Clinical Summary ---
Author Organization [facility] Address Formerly [facility], [facility] [place] [address] Care Team Providers Care Hazardous Waste Technician Name Role Phone Unavailable Primary Care Provider Unavailabl e Social History Tobacco Use Types Packs/Day Years Used Date Smoking Tobacco: Never Assessed Comments Unknown Sex and Gender Information Value Date Recorded Sex Assigned at Not on file Legal Sex Female 2:41 PM CDT Gender Identity Not on file Sexual Orientation Not on file Plan of Treatment Health Maintenance Due Date Last Done Comments Hepatitis C 10/11/1963 DTaP, Tdap and Td Vaccines ( 1 - Tdap) 1964 Zoster Vaccines (1 of 2) 10/11/1995 Dexa Scan (General) 2010 Pneumococcal Vaccine: 65+ Ye ars (1 of 1 - PCV) 2010 RSV Immunization or 60+ Years (1 - 1-dose 75+ series) 2020 COVID-19 Vaccine (2023-2 5 season) 2024 Influenza Adult (#1) 2024 Meningococcal B Vaccine Aged Out No l onger eligible based on patient's age to complete this topic Meningococcal Vaccine Aged Out No nisa chun eligible based on patient's age to complete this topic RSV Immunizations Under 20 Months Aged Out No longer eligible based on patient's age to complete this topic
--- OUTSIDE RECORDS SUMMARY | 2024-09-05 17:06 | XMS_ITS | CONTINUITY OF CARE DOCUMENT ---
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 Name Role Phone Juanpablo Reinoso MD Unavailable [phone] GEMA KINGSLEY MD Unavailable ROMULO MI, CHRIS Unavailable PROBLEMS Condition Status Date Provider Notes S/P Implantable Loop Recorder-Biotronik ( MRI Safe) active Tori Browne FIBROMYALGIA active Liat Stahlschmidt OBESITY active Liat Stahlschmidt DIABETES MELLITUS active Liat Stahlschmid t Chest pain completed - Marc Díaz Angina pectoris completed - Marc Díaz Hyperlipidemia;with high crp and lpa active Raymond Guerra MD CABG- MELENDEZ-LAD completed - Juanpablo Villanueva LEG PAIN-09 ALEJA NEG completed - Marc wagner LEG PAIN-6 AJ DOP NEG completed - Juanpablo jackson MD HTN essential;NEG DUPLEX active Raymond sol MD CAD;CAROTID PLAQUE active Raymond Guerra MD LVH - mild 01/2019 active Marc mayfield CAD-3/14 NUC NEG completed - Juanpablo Reinoso MD Shortness of breath completed - Marc Díaz Syncope active Juanpablo Reinoso MD Thyroid goiter active Juanpablo Reinoso MD S/P CABG (MELENDEZ-LAD) 04/1997 active Juanpablo jackson MD Crohn's disease active Marc Díaz Vitamin D deficiency active Marc Perkins erg Iron deficiency active Marc Díaz TIA active Marc Díaz Carotid artery stenosis, <50 % ICA b/l completed - Raymond Guerra MD Screening - negative COVID IgG/IgM/IgA and swab 02/2020 active Marc Díaz Fatigue active Marc Bre Diastolic CHF active Raymond Guerra MD Hypertriglyceridemia active Raymond Villanueva Palpitations active Raymond Guerra MD Angina with CAD completed - Raymond Guerra MD Exposure to SARS-associated coronavirus;NEG SWAB and IGG active Raymond Guerra MD DIZZINESS active Juanpablo Reinoso MD Foot ulcer, left active Ludmila Lyons r CKD, stage 3 active Raymond Guerra MD on FAR XIAAG, NEG DUPLEX AND US, NEG UACR At risk for falls active Ludmila Agudelo er Leg pain, bilateral active Ludmila Wheat eyer PAD - S/P ATHERECTOMY R SFA, R TIBIOPERONEAL TRUNK 11/15 active Ludmila Casarez Localized swelling on legs, bilateral completed - Raymond Guerra MD Screening active Raymond Guerra MD AORTIC REGURGITATION active Raymond Villanueva Hypothyroidism active Raymond Guerra MD Cerebral atherosclerosis active Raymond sol MD Neuropathy active Raymond Guerra MD b12 on r x,neg rpr B12 deficiency active Raymond Guerra MD Frequent falls active Juanpablo Reinoso MD Headache, post traumatic active Gema John nbach ENCOUNTERS Date Type Provider Location Encounter Diag nosis - In-person encounter Office Visit Juanpablo Reinoso MD [facility] Frequent fallsHeadache, post traumatic - In-person encounter Office Visit Juanpablo Reinoso MD [facility] - In-person encounter Office Visit Juanpablo Reinoso MD [facility] - In-person encounter Office Visit Juanpablo Reinoso MD [facility] - In-person encounter Office Visit Juanpablo Reinoso MD [facility] - In-person encounter Office Visit Juanpablo Reinoso MD [facility] - In-person encounter Office Visit Juanpablo Reinoso MD [facility] - In-person encounter Office Visit Raymond Guerra MD [facility] Hyperlipidemia;with high crp and lpaHTN essential;NEG DUPLEXCAD;CAROTID PLAQUECarotid artery stenosis, <50% ICA b/lDiastolic CHFAngina with CADExposure to SARS-associated coronavirus;NEG SWAB and IGGCKD, stage 3Localized swelling on legs, bilateralScreeningAORTIC REGURGITATIONHypothyroidismCerebral nlraecpugirmmqkIxueqobvbgJ24 deficiency - In-person encounter Office Visit Juanpablo Reinoso MD [facility] - In-person encounter Office Visit Juanpablo Reinoso MD [facility] PAD - S/P ATHERECTOMY R SFA, R TIBIOPERONEAL TRUNK 11/15 - In-person encounter Office Visit Juanpablo Reinoso MD [facility] Leg pain, bilateral - In-person encounter Office Visit Juanpablo Reinoso MD [facility] - In-person encounter Office Visit Ania Ramirez MD [facility] - In-person encounter Office Visit Ania Ramirez MD [facility] - In-person encounter Office Visit Juanpablo Reinoso MD [facility] At risk for falls - In-person encounter Office Visit Juanpablo Reinoso MD [facility] - In-person encounter Office Visit Juanpablo Reinoso MD [facility] CKD, stage 3 - In-person encounter Office Visit Ania Ramirez MD [facility] Foot ulcer, left - In-person encounter Office Visit Juanpablo Reinoso MD [facility] DIZZINESS - In-person encounter Office Visit Juanpablo Reinoso MD [facility] - In-person encounter Office Visit Juanpablo Reinoso MD [facility] - In-person encounter Office Visit Raymond Guerra MD [facility] Diastolic CHFHypertriglyceridemiaPalpitations - In-person encounter Office Visit Juanpablo Reinoso MD [facility] Chest painAngina pectorisCAD;CAROTID PLAQUEShortness of breathScreening - negative COVID IgG/IgM/IgA and swab 02/2020Fatigue - In-person encounter Office Visit Juanpablo Reinoso MD [facility] Hyperlipidemia;with high crp and lpaLEG PAIN-10/01 ALEJA NEGHTN essential;NEG DUPLEXLVH - mild 01/2019TIAScreening - negative COVID IgG/IgM/IgA and swab 02/2020 - In-person encounter Office Visit Shade Arrington MD [facility] - In-person encounter Office Visit Juanpablo Reinoso MD [facility] CAD;CAROTID PLAQUEThyroid goiterS/P CABG (MELENDEZ-LAD) 04/1997Crohn's diseaseVitamin D deficiencyIron deficiency - In-person encounter Office Visit Juanpablo Reinoso MD [facility] Syncope - In-person encounter Office Visit Juanpablo Reinoso MD [facility] - In-person encounter Office Visit Juanpablo Reinoso MD [facility] - In-person encounter Office Visit Juanpablo Reinoso MD [facility] - In-person encounter Office Visit Juanpablo Reinoso MD [facility] - In-person encounter Office Visit Khang Marrero MD [facility] - In-person encounter Office Visit Khang Marrero MD [facility] - In-person encounter Office Visit Juanpablo Reinoso MD [facility] - In-person encounter Office Visit Juanpablo Reinoso MD [facility] - In-person encounter Office Visit Juanpablo Reinoso MD [facility] - In-person encounter Office Visit Genoveva Gutierrez MD [facility] CAD-10/06 NUC NEG - In-person encounter Office Visit Juanpablo Reinoso MD [facility] - In-person encounter Office Visit Juanpablo Reinoso MD [facility] - In-person encounter Office Visit Juanpablo Reinoso MD [facility] - In-person encounter Office Visit Juanpablo Reinoso MD [facility] CAD;CAROTID PLAQUE - In-person encounter Office Visit Juanpablo Reinoso MD [facility] LEG PAIN-01/05 AJ DOP NEGHTN essential;NEG DUPLEX - In-person encounter Office Visit Juanpablo Reinoso MD [facility] LEG PAIN-10/01 ALEJA NEG - In-person encounter Office Visit Juanpablo Reinoso MD [facility] Hyperlipidemia;with high crp and lpa - In-person encounter Office Visit Juanpablo Reinoso MD [facility] CABG- MELENDEZ-LAD VITAL SIGNS Date Observation Value Provider Body Mass Index (Ratio) 32.34 kg/m2 Bhargav Wells blood pressure, diastolic 54 mm[Hg] Ka yla [facility] blood pressure, systolic 152 mm[Hg] Dali la [facility] blood pressure, cuff size regular Ka yla [facility] oxygen saturation, oximetry 98 % Jana [facility] pulse rate 80 /min Jana [facility] weight E&M 174 [lb_av] [facility] height E&M 61.5 [in_i] [facility] Body Mass Index (Ratio) 31.26 kg/m2 Bhargav villanueva [facility] blood pressure, diastolic 69 mm[Hg] Vi pin [facility] blood pressure, systolic 145 mm[Hg] [facility] oxygen saturation, oximetry 99 % [facility] respiratory rate E&M 24 /min [facility] pulse rate 55 /min [facility] weight E&M 168.2 [lb_av] [facility] height E&M 61.5 [in_i] [facility] Body Mass Index (Ratio) 30.48 kg/m2 Grah am Lex blood pressure, cuff size regular Ja rret blood pressure, diastolic 55 mm[Hg] Ja rret blood pressure, systolic 146 mm[Hg] Jar ret pulse rate 60 /min Kelechi y oxygen saturation, oximetry 97 % [facility] respiratory rate E&M 16 /min [facility] weight E&M 164 [lb_av] [facility] height E&M 61.5 [in_i] Kelechi Body Mass Index (Ratio) 29.37 kg/m2 Grah am Lxe blood pressure, cuff size regular Isreal blood pressure, diastolic 69 mm[Hg] [facility]real [facility] blood [facility], systolic 166 mm[Hg] Vito [facility] pulse rate 76 /min Kelechi oxygen saturation, oximetry 100 % [facility] respiratory rate E&M 16 /min [facility] weight E&M 158 [lb_av] [facility] height E&M 61.5 [in_i] Kelechi Body Mass Index (Ratio) 31.23 kg/m2 Grah am Lex blood pressure, diastolic 58 mm[Hg] An leoncio Busby blood pressure, systolic 122 mm[Hg] Any claribel Busby pulse rate 64 /min Sheyla Busby oxygen saturation, oximetry 98 % Sheyla Busby weight E&M 168 [lb_av] Sheyla Kehinde blood pressure, cuff size large An leoncio Busby height E&M 61.5 [in_i] Sheyla Kehinde Body Mass Index (Ratio) 31.23 kg/m2 [facility] am Lex blood pressure, cuff size regular Fa [facility] blood pressure, diastolic 59 mm[Hg] Fa [facility] blood pressure, systolic 133 mm[Hg] Jose [facility] oxygen saturation, oximetry 98 % Roxy [place] respiratory rate E&M 16 /min Roxy M iller pulse rate, standing 78 /min Roxy M iller pulse rate 78 /min Roxy Cruz weight E&M 168 [lb_av] Roxy Cruz height E&M 61.5 [in_i] Roxy Cruz Body Mass Index (Ratio) 30.85 kg/m2 Samia puentes Lex blood pressure, cuff size regular Ja rret blood pressure, diastolic 70 mm[Hg] Ja rret blood pressure, systolic 144 mm[Hg] Jar ret pulse rate 89 /min Kelechi y respiratory rate E&M 12 /min [facility] oxygen saturation, oximetry 97 % [facility] weight E&M 166 [lb_av] Kelechi y height E&M 61.5 [in_i] Kelechi y Body Mass Index (Ratio) 31.97 kg/m2 aJnice Guerra MD blood pressure, cuff size regular caesar Hanson blood pressure, diastolic 74 mm[Hg] Sh caesar Hanson blood pressure, systolic 167 mm[Hg] She javon Margie pulse rate 67 /min Zena Hanson oxygen saturation, oximetry 99 % Zena Margie respiratory rate E&M 20 /min Zenapam Hanson weight E&M 172 [lb_av] Zena Margie height E&M 61.5 [in_i] Zena Hanson Body Mass Index (Ratio) 31.41 kg/m2 Eugenia Casarez blood pressure, diastolic 63 mm[Hg] Mi brandon Schuster blood pressure, systolic 142 mm[Hg] Jesús blanca Schuster oxygen saturation, oximetry 100 % Lisa Schuster pulse rate 57 /min Lisa villanueva weight E&M 169 [lb_av] Lisa villanueva respiratory rate E&M 16 /min Penny Schuster blood pressure, cuff size large Daisy taylor Landen height E&M 61.5 [in_i] Lisa villanueva Body Mass Index (Ratio) 31.78 kg/m2 Eugenia amin Leida blood pressure, diastolic 65 mm[Hg] Mi brandon Landen blood pressure, systolic 140 mm[Hg] Jesús blanca Landen weight E&M 171 [lb_av] Lisa villanueva oxygen saturation, oximetry 96 % Lisa Schuster pulse rate 79 /min Lisa villanueva respiratory rate E&M 16 /min Penny Schuster blood pressure, cuff size large Daisy taylor Landen height E&M 61.5 [in_i] Lisa villanueva Body Mass Index (Ratio) 32.71 kg/m2 Eugenia Casarez blood pressure, diastolic 67 mm[Hg] St kasandra Jackman blood pressure, systolic 160 mm[Hg] Sta tomasz Jackman oxygen saturation, oximetry 99 % Yadiratomasz Jackman pulse rate 61 /min Yadira Gasper weight E&M 176 [lb_av] Yadira Gasper respiratory rate E&M 16 /min Yadira Kay haley height E&M 61.5 [in_i] Yadira Gasper Body Mass Index (Ratio) 32.90 kg/m2 Eugenia brennan Casarez blood pressure, cuff size large Daisy taylor Landen blood pressure, diastolic 60 mm[Hg] Mi brandon Landen blood pressure, systolic 110 mm[Hg] Jesús helraudel Landen pulse rate 89 /min Lisa villanueva oxygen saturation, oximetry 96 % Lisa Landen respiratory rate E&M 16 /min Penny vladimir Schuster weight E&M 177 [lb_av] Lisa Miles kay height E&M 61.5 [in_i] Lisa Miles kay Body Mass Index (Ratio) 33.64 kg/m2 Alicia Ramirez MD pulse rate 63 /min Dayanna Beckett oxygen saturation, oximetry 98 % Dayanna Beckett respiratory rate E&M 16 /min Dayanna Si ms blood pressure, diastolic 70 mm[Hg] Sa ra Beckett blood pressure, systolic 140 mm[Hg] Earlene a Beckett weight E&M 181 [lb_av] Dayanna Beckett blood pressure, cuff size large Sa ra Beckett height E&M 61.5 [in_i] Dayanna Beckett Body Mass Index (Ratio) 32.34 kg/m2 Alicia Ramirez MD blood pressure, diastolic 79 mm[Hg] Sa ra Beckett blood pressure, systolic 143 mm[Hg] Earlene a Beckett oxygen saturation, oximetry 94 % Dayanna Beckett respiratory rate E&M 14 /min Dayanna Si ms pulse rate 91 /min Dayanna Beckett blood pressure, cuff size regular Sa ra Beckett weight E&M 174 [lb_av] Dayanna Beckett height E&M 61.5 [in_i] Dayanna Beckett Body Mass Index (Ratio) 32.34 kg/m2 Eugenia Casarez blood pressure, cuff size large Ke rri Gruenenfelder blood pressure, diastolic 60 mm[Hg] Ke rri Gruenenfelder blood pressure, systolic 146 mm[Hg] Wilfred Wayneelder oxygen saturation, oximetry 93 % Ira Sanchez respiratory rate E&M 16 /min Ira jamilelder pulse rate 75 /min Ira Grey lder weight E&M 174 [lb_av] Ira Grey lder height E&M 61.5 [in_i] Ira rGey lder Body Mass Index (Ratio) 34.20 kg/m2 Eugenia Casarez blood pressure, cuff size regular Sa ra Beckett blood pressure, diastolic 78 mm[Hg] Sa ra Beckett blood pressure, systolic 158 mm[Hg] Earlene a Beckett oxygen saturation, oximetry 99 % Dayanna Beckett respiratory rate E&M 16 /min Dayanna Si ms pulse rate 99 /min Dayanna Beckett weight E&M 184 [lb_av] Dayanna Beckett height E&M 61.5 [in_i] Dayanna Beckett Body Mass Index (Ratio) 35.13 kg/m2 Vargas hall Nacht blood pressure, diastolic -1 mm[Hg] Li nkLogic blood pressure, systolic 185 mm[Hg] Nu kLogic blood pressure, diastolic 85 mm[Hg] Ca therine Lisandro blood pressure, systolic 185 mm[Hg] Cat herine Lisandro blood pressure, cuff size regular Ca therine Lisandro oxygen saturation, oximetry 85 % Carolyn [place] respiratory rate E&M 14 /min Catheri ne [place] pulse rate 77 /min Carolyn Lisandro height E&M 61.5 [in_i] Carolyn [place] weight E&M 189 [lb_av] Carolyn [place] Body Mass Index (Ratio) 34.39 kg/m2 Eugenia amin Leida blood pressure, diastolic 66 mm[Hg] Li nkLogic blood pressure, systolic 118 mm[Hg] Nu kLogic blood pressure, cuff size regular Cy ishaan Willoughby blood pressure, diastolic 66 mm[Hg] Cy ishaan [place] blood pressure, systolic 118 mm[Hg] Ursula [place] pulse rate 93 /min Becky baker oxygen saturation, oximetry 98 % Becky Willoughby respiratory rate E&M 16 /min Becky Willoughby weight E&M 185 [lb_av] Becky Vazquez l height E&M 61.5 [in_i] Becky Vazquez olivia Body Mass Index (Ratio) 35.69 kg/m2 Eugenia amin Leida blood pressure, cuff size large Ke rri Daniel blood pressure, diastolic 70 mm[Hg] Ke rri Wesueneankiteldemili blood pressure, systolic 102 mm[Hg] Ker ri Daniel oxygen saturation, oximetry 99 % Ira Daniel respiratory rate E&M 16 /min Ira G randaenenfelder pulse rate 88 /min Ira Gruenenfe lder weight E&M 192 [lb_av] Ira Gruenenfe lder height E&M 61.5 [in_i] Ira Wesuenenfe lder Body Mass Index (Ratio) 37.17 kg/m2 Eugenia amin Leida blood pressure, diastolic 62 mm[Hg] Salome Newton blood pressure, systolic 120 mm[Hg] She rkeitha Newton blood pressure, resting Yes Jeff Newton oxygen saturation, oximetry 98 % Julissa Newton pulse rate 80 /min Julissa jiang respiratory rate E&M 20 /min Chiqui Torrezford weight E&M 200 [lb_av] Julissa jiang height E&M 61.5 [in_i] Julissa jiang Body Mass Index (Ratio) 39.40 kg/m2 [facility] vladimir Armstrong blood pressure, resting Yes Jeff Newton blood pressure, diastolic 88 mm[Hg] Sh tatiana Torrezford blood pressure, systolic 150 mm[Hg] She charisse Torrezford oxygen saturation, oximetry 96 % Julissa Newton pulse rate 110 /min Julissa jiang respiratory rate E&M 18 /min Chiqui Torrezford weight E&M 212 [lb_av] Julissa jiang height E&M 61.5 [in_i] Julissa jiang Body Mass Index (Ratio) 41.82 kg/m2 Janice Guerra MD blood pressure, resting Yes Harris ty Somers blood pressure, diastolic 70 mm[Hg] Kr isty Nevin blood pressure, systolic 150 mm[Hg] Kri stshakila Nevin pulse rate 75 /min Gisselle Somers oxygen saturation, oximetry 97 % Gisselle Nevin respiratory rate E&M 18 /min Gisselle Nevin weight E&M 225 [lb_av] Gisselle Nevin height E&M 61.5 [in_i] Gisselle Somers Body Mass Index (Ratio) 42.01 kg/m2 Rock rahman [facility] blood pressure, cuff size large [facility], diastolic 62 mm[Hg] Ke rri [facility] blood pressure, systolic 126 mm[Hg] Wilfred ri Rosanaelder oxygen saturation, oximetry 96 % Ira Rosanaelder respiratory rate E&M 18 /min Ira G ruenenfelder pulse rate 65 /min Ira Matilda [facility] weight E&M 226 [lb_av] Ira Rosanae [facility] height E&M 61.5 [in_i] Ira Rosanae [facility] Body Mass Index (Ratio) 42.38 kg/m2 Rock rahman [facility] blood pressure, diastolic 89 mm[Hg] Cy ishaan Willoughby blood pressure, systolic 187 mm[Hg] Ursula lauren [place] blood pressure, cuff size regular Cy ntsafia [place]ough[place] oxygen saturation, oximetry 96 % Becky [place] respiratory rate E&M 16 /min Beckylauren [place]oughby pulse rate 106 /min Becky Campbel l weight E&M 228 [lb_av] Becky Campbel l height E&M 61.5 [in_i] Becky Campbel l Body Mass Index (Ratio) 42.38 kg/m2 Foster Arrington MD blood pressure, cuff size regular Cy ntgracea Case blood pressure, diastolic 80 mm[Hg] Cy nthia Case blood pressure, systolic 146 mm[Hg] Ursula armandoa Case respiratory rate E&M 18 /min Becky Case oxygen saturation, oximetry 97 % Becky Case pulse rate 97 /min Becky Campbel l weight E&M 228 [lb_av] Becky Campbel l height E&M 61.5 [in_i] Becky baker Body Mass Index (Ratio) 42.56 kg/m2 Rock Díaz blood pressure, resting Yes Juanpablo Paulie Reinoso MD blood pressure, cuff size large Zahra Bland blood pressure, diastolic 88 mm[Hg] Zahra Bland blood pressure, systolic 142 mm[Hg] Dena kay Bland oxygen saturation, oximetry 98 % Leanna Bland respiratory rate E&M 16 /min Leanna Bland pulse rate 98 /min Leanna Bland weight E&M 229 [lb_av] Leanna Bland height E&M 61.5 [in_i] Leanna Bland blood pressure, diastolic, left arm 65 mm [Hg] Trinidad Carlisle blood pressure, systolic, left arm 152 mm [Hg] Trinidad Carlisle blood pressure, diastolic, right arm 66 m m[Hg] Trinidad Carlisle blood pressure, systolic, right arm 154 m m[Hg] Trinidad [place]isle blood pressure, diastolic 65 mm[Hg] Nm ale Carlisle blood pressure, systolic 152 mm[Hg] Gin soto Carlisle Body Mass Index (Ratio) 44.61 kg/m2 Brisa carlos pulse rate 78 /min Trinidad Carlisle oxygen saturation, oximetry 98 % Trinidad Carlisle respiratory rate E&M 15 /min Trinidad Carlisle weight E&M 240 [lb_av] Trinidad Carlisle blood pressure, diastolic, left arm 87 mm [Hg] Austyn Sanchez RN blood pressure, systolic, left arm 142 mm [Hg] Austyn Sanchez RN blood pressure, diastolic, right arm 84 m m[Hg] Austyn Sanchez RN blood pressure, systolic, right arm 162 m m[Hg] Austyn Sanchez RN blood pressure, diastolic 84 mm[Hg] Isreal hubbard Sanchez RN blood pressure, systolic 162 mm[Hg] Austyn Espinozas RN pulse rate 90 /min Austyn Espinozas RN oxygen saturation, oximetry 94 % Austyn Espinozas RN respiratory rate E&M 18 /min Austyn fernandezs RN Body Mass Index (Ratio) 41.04 kg/m2 Austyn Espinozas RN weight E&M 220 [lb_av] Austyn Espinozas RN blood pressure, diastolic, left arm 74 mm [Hg] Austyn Espinozas RN blood pressure, systolic, left arm 147 mm [Hg] Austyn Espinozas RN blood pressure, diastolic, right arm 83 m m[Hg] Austyn Espinozas RN blood pressure, systolic, right arm 150 m m[Hg] Austyn Espinozas RN blood pressure, diastolic 74 mm[Hg] Isreal hubbard Sanchez RN blood pressure, systolic 147 mm[Hg] Austyn Espinozas RN pulse rate 81 /min Austyn Espinozas RN oxygen saturation, oximetry 98 % Austyn Espinozas RN respiratory rate E&M 16 /min Austyn fernandezs RN Body Mass Index (Ratio) 42.91 kg/m2 Austyn Sanchez RN weight E&M 230 [lb_av] Austyn Espinozas RN blood pressure, diastolic, left arm 63 mm [Hg] Austyn Espinozas RN blood pressure, systolic, left arm 117 mm [Hg] Austyn Espinozas RN blood pressure, diastolic, right arm 61 m m[Hg] Austyn Sanchez RN blood pressure, systolic, right arm 129 m m[Hg] Austyn Sanchez RN blood pressure, diastolic 63 mm[Hg] Isreal Espinozas RN blood pressure, systolic 117 mm[Hg] Austyn Sanchez RN pulse rate 63 /min Austyn Sanchez RN oxygen saturation, oximetry 98 % Austyn Sanchez RN respiratory rate E&M 17 /min Austyn prieto RN weight E&M 241 [lb_av] Austyn Laura RN height E&M 61.5 [in_i] Austyn Sanchez RN blood pressure, diastolic 62 mm[Hg] De mary carmeneahaydee CurielMartínez blood pressure, systolic 112 mm[Hg] Jesusita keshia Webster [employer] pulse rate 75 /min Denyeannamaria Martínez oxygen saturation, oximetry 97 % Taeyeannamaria Curielran respiratory rate E&M 16 /min Taeyean Martínez weight E&M 243.6 [lb_av] Erika Kelley n blood pressure, diastolic 83 mm[Hg] Isreal Sanchez RN blood pressure, systolic 154 mm[Hg] Austyn Sanchez RN pulse rate 117 /min Austyn Sanchez RN oxygen saturation, oximetry 98 % Austyn Sanchez RN respiratory rate E&M 18 /min Austyn prieto RN weight E&M 230 [lb_av] Austyn Sanchez RN pulse rate 78 /min Austyn Sanchez RN oxygen saturation, oximetry 97 % Austyn Sanchez RN respiratory rate E&M 16 /min Austyn prieto RN weight E&M 242 [lb_av] Austyn Sanchez RN blood pressure, diastolic 75 mm[Hg] De mary carmeneahaydee CurielMartínez blood pressure, systolic 143 mm[Hg] Tae Martínez pulse rate 97 /min Taeyeannamaria Martínez oxygen saturation, oximetry 95 % Erika Martínez respiratory rate E&M 16 /min Taeyean Martínez weight E&M 250 [lb_av] Taeyean Martínez blood pressure, diastolic 55 mm[Hg] De nyean Martínez blood pressure, systolic 104 mm[Hg] Den yeannamaria Martínez pulse rate 98 /min Taeyean Martínez oxygen saturation, oximetry 80 % Erika Martínez respiratory rate E&M 20 /min Erika Martínez weight E&M 249 [lb_av] Austyn Sanchez RN blood pressure, diastolic, left arm 95 mm [Hg] Austyn Sanchez RN blood pressure, systolic, left arm 148 mm [Hg] Austyn Espinozas RN blood pressure, diastolic, right arm 87 m m[Hg] Austyn Sanchez RN blood pressure, systolic, right arm 154 m m[Hg] Austyn Sanchez RN blood pressure, diastolic 95 mm[Hg] Isreal haydee Sanchez RN blood pressure, systolic 148 mm[Hg] Austyn Espinozas RN pulse rate 75 /min Austyn Sanchez RN oxygen saturation, oximetry 97 % Austyn Sanchez RN respiratory rate E&M 18 /min Austyn Forrest ida RN weight E&M 242 [lb_av] Austyn Espinozas RN blood pressure, diastolic 58 mm[Hg] Grimm blood pressure, systolic 117 mm[Hg] Tae Martínez pulse rate 78 /min Erika Martínez oxygen saturation, oximetry 95 % Erika Martínez respiratory rate E&M 16 /min Erika Martínez weight E&M 240 [lb_av] Erika Martínez blood pressure, diastolic, left arm 72 mm [Hg] Erika Martínez blood pressure, systolic, left arm 140 mm [Hg] Erika Martínez blood pressure, diastolic, right arm 69 m m[Hg] Erika Martínez blood pressure, systolic, right arm 138 m m[Hg] Erika Martínez blood pressure, diastolic 69 mm[Hg] Grimm blood pressure, systolic 138 mm[Hg] Tae Martínez pulse rate 76 /min Erika Martínez oxygen saturation, oximetry 98 % Erika Martínez respiratory rate E&M 76 /min Erika Martínez weight E&M 238 [lb_av] Erika Martínez blood pressure, diastolic 82 mm[Hg] Edgar mares Yogesh blood pressure, systolic 138 mm[Hg] Wali jaimes Yogesh pulse rate 84 /min Caitlyn Zuñiga oxygen saturation, oximetry 97 % Caitlyn Zuñiga respiratory rate E&M 18 /min Ang Zuñiga weight E&M 244 [lb_av] Caitlyn Zuñiga blood pressure, diastolic, left arm 55 mm [Hg] Austyn Sanchez RN blood pressure, systolic, left arm 121 mm [Hg] Austyn Sanchez RN blood pressure, diastolic, right arm 79 m m[Hg] Austyn Sanchez RN blood pressure, systolic, right arm 138 m m[Hg] Austyn Sanchez RN blood pressure, diastolic 79 mm[Hg] Isreal Sanchez RN blood pressure, systolic 138 mm[Hg] Austyn Sanchez RN pulse rate 84 /min Austyn Sanchez RN oxygen saturation, oximetry 96 % Austyn Sanchez RN respiratory rate E&M 20 /min Austyn prieto RN weight E&M 256 [lb_av] Austyn Sanchez RN blood pressure, diastolic 54 mm[Hg] Whitney seph [place] blood pressure, systolic 118 mm[Hg] Rom eph [place] pulse rate 64 /min Elvis [place] oxygen saturation, oximetry 95 % Elvis [place] respiratory rate E&M 20 /min Elvis [place] weight E&M 261 [lb_av] Elvis [place] blood pressure, diastolic 75 mm[Hg] Whitney seph [place] blood pressure, systolic 151 mm[Hg] Rom eph [place] pulse rate 90 /min Elvis [place] oxygen saturation, oximetry 100 % Elvis [place] respiratory rate E&M 16 /min Elvis [place] weight E&M 256 [lb_av] Elvis [place] blood pressure, diastolic 95 mm[Hg] Isreal haydee Sanchez RN blood pressure, systolic 151 mm[Hg] Austyn Espinozas RN pulse rate 104 /min Austyn Espinozas RN oxygen saturation, oximetry 98 % Austyn Espinozas RN respiratory rate E&M 16 /min Austyn Lon prieto RN weight E&M 255 [lb_av] Austyn Espinozas RN blood pressure, diastolic 75 mm[Hg] Whitney seph [place] blood pressure, systolic 160 mm[Hg] Rom eph [place] pulse rate 78 /min Elvis [place] oxygen saturation, oximetry 100 % Elvis [place] respiratory rate E&M 16 /min Elvis [place] weight E&M 252 [lb_av] Elvis [place] blood pressure, diastolic 87 mm[Hg] Pritesh Marquez blood pressure, systolic 148 mm[Hg] [place] pulse rate 86 /min Saritha Marquez oxygen saturation, oximetry 99 % Saritha Marquez respiratory rate E&M 20 /min Saritha taylor weight E&M 263 [lb_av] Saritha Marquez ALLERGIES Allergy Name Onset Date Reaction Criticality Status IVP DYE High Criticality aborted GABAPENTIN Low Criticality active FLEXERIL (CYCLPOBENZAPRINE) High Cri ticality active PCN High Criticality active RESULTS Date Observation Value Provider Reference Range Interpretation Location activated partial thromboplastin time (aPTT) 29 s [facility] 24-33 prothrombin time (patient) 11.9 s [facility] 9.1-12.0 international normalized ratio (INR) 1.1 [facility] 0.9-1.2 alanine aminotransferase (SGPT), serum 10 1/L [facility] 0-32 aspartate aminotransferase (SGOT), serum 19 1/L [facility] 0-40 alkaline phosphatase, serum 67 1/L [facility] 44-121 bilirubin, serum, total 0.2 mg/dL [facility] 0.0-1.2 globulin, serum 2.8 [facility] 1.5-4.5 albumin, serum 4.1 g/dL [facility] 3.8-4.8 protein, total, serum 6.9 g/dL [facility] 6.0-8.5 calcium, serum 9.6 mg/dL [facility] 8.7-10.3 carbon dioxide, venous blood 25 mmol/L [facility] 20-29 chloride, serum 101 mmol/L [facility] 96-106 potassium, serum 5.0 mmol/L [facility] 3.5-5.2 sodium, serum 139 mmol/L [facility] [phone]/01 /23 urea nitrogen/creatinine ratio, serum 16 [facility] 12-28 creatinine, serum 1.40 mg/dL [facility] 0.57-1.00 High urea nitrogen, blood 23 mg/dL [facility] 8-27 blood glucose, random 121 mg/dL [facility] 70-99 High bacteria, urine microscopy None seen [facility] None seen/Few hyaline casts, urine None seen [facility] None seen epithelial cells, urine None seen [facility] 0 - 10 RBC, Urine 0-2 /hpf [facility] 0 - 2 WBC urine on microscopy None seen /hpf [facility] 0 - 5 nitrate, urine Negative [facility] Negative urobilinogen, urine, semiquantitative (dipstick) 0.2 [facility] 0.2-1.0 bilirubin, urine Negative [facility] Negative hemoglobin, urine, by dipstick Negative [facility] Negative ketones, urine, by test strip Negative [facility] Negative glucose, urine 3+ [facility] Negative Abnormal protein, urine, semiquantitative (dipstick) Negative [facility] Negative/Tr demetrio leukocyte esterase, urine, by dipstick Negative [facility] Negative appearance, urine Clear [facility] Clear urine color Yellow [facility] Yellow pH, urine, semiquantitative 5.5 [facility] 5.0-7.5 specific gravity, body fluid 1.014 [facility] 1.005-1.030 basophil count, absolute 0.0 x10E3/uL [facility] 0.0-0.2 Eosinophil Absolute Count 0.1 X10E3/UL [facility] 0.0-0.4 monocyte count, blood, automated 0.5 X10E3/UL [facility] 0.1-0.9 lymphocyte count, blood, automated 1.6 X10E3/UL [facility] 0.7-3.1 Absolute Neutrophils 4.5 X10E3/UL [facility] 1.4-7.0 basophils as percent of blood leukocytes 0 % [facility] Not Estab. eosinophils as percent of blood leukocytes 1 % [facility] Not Estab. monocytes as percent of blood leukocytes 8 % [facility] Not Estab. lymphocytes as percent of blood leukocytes 24 % [facility] Not Estab. neutrophils as percent of blood leukocytes 67 % [facility] Not Estab. platelet count 280 X10E3/UL [facility] 504-062 8290/01 /23 red blood cell distribution width 15.6 % [facility] 11.7-15.4 High mean corpuscular hemoglobin concentration, RBC 29.5 G/DL [facility] 31.5-35.7 Low mean corpuscular hemoglobin, RBC 24.2 pg [facility] 26.6-33.0 Low mean corpuscular volume, RBC 82 fL [facility] 79-97 hematocrit, blood 32.2 % [facility] 34.0-46.6 Low hemoglobin, blood 9.5 g/dL [facility] 11.1-15.9 Low erythrocyte (RBC) count 3.93 X10E6/UL [facility] 3.77-5.28 leukocyte count, blood 6.8 X10E3/UL [facility] 3.4-10.8 B-12, serum 854 pg/mL [facility] [phone] rapid plasma reagin antibody screen Non Reactive [facility] Non Reactive pro brain natriuretic peptide 570 pg/mL [facility] 0-738 calcium, serum 10.1 mg/dL [facility] 8.7-10.3 carbon dioxide, venous blood 29 mmol/L [facility] 20-29 chloride, serum 99 [facility] potassium, serum 5.2 [facility] sodium, serum 140 mmol/L [facility] [phone]/11 /01 urea nitrogen/creatinine ratio, serum 18 [facility] 12-28 creatinine, serum 1.21 mg/dL [facility] 0.57-1.00 High urea nitrogen, blood 22 mg/dL [facility] 8-27 blood glucose, random 84 mg/dL [facility] 70-99 prothrombin time (patient) 11.4 s [facility] 9.0-11.5 Normal [facility] Normal basophils as percent of blood leukocytes 0.8 % [facility] Normal eosinophils as percent of blood leukocytes 4.0 % [facility] Normal monocyte count, blood 8.0 % [facility] Normal lymphocyte count, blood 33.6 % [facility] Normal neutrophils as percent of blood leukocytes 53.6 % [facility] Normal basophils, absolute, manual 59 cells/mcL [facility] 0-200 Normal eosinophils, absolute, manual 296 cells/mcL [facility] 15-500 Normal monocytes, absolute, manual 592 cells/mcL [facility] 200-950 Normal lymphocytes, absolute 2486 CELLS/UL [facility] 850-3900 Normal Absolute Neutrophil count 3966 cells/mcL [facility] 1359-4744 Normal mean platelet volume 9.4 fL [facility] 7.5-12.5 Normal platelet count 328 THOUSAND/UL [facility] 140-400 Normal red blood cell distribution width 14.7 % [facility] 11.0-15.0 Normal mean corpuscular hemoglobin concentration, RBC 32.6 G/DL [facility] 32.0-36.0 Normal mean corpuscular hemoglobin, RBC 28.7 pg [facility] 27.0-33.0 Normal mean corpuscular volume, RBC 88.2 fL [facility] 80.0-100.0 Normal hematocrit, blood 38.7 % [facility] 35.0-45.0 Normal hemoglobin electrophoresis, blood 12.6 [facility] 11.7-15.5 Normal erythrocyte (RBC) count 4.39 MILLION/UL [facility] 3.80-5.10 Normal leukocyte (white blood cells) count, blood 7.4 THOUSAND/UL [facility] 3.8-10.8 Normal calcium, serum 9.3 mg/dL [facility] 8.6-10.4 Normal carbon dioxide, venous blood 29 mmol/L [facility] 20-32 Normal chloride, serum 104 mmol/L [facility] 98-110 Normal potassium, serum 3.9 mmol/L [facility] 3.5-5.3 Normal sodium, serum 140 mmol/L [facility] 135-146 Normal urea nitrogen/creatinine ratio, serum 19 (calc) [facility] 6-22 Normal creatinine, serum 1.22 mg/dL [facility] 0.60-1.00 High urea nitrogen, blood 23 mg/dL [facility] 7-25 Normal blood glucose, random 108 mg/dL [facility] 65-99 High cholesterol, non-HDL, total 112 MG/DL (CALC) [facility] <130 Normal cholesterol/HDL ratio, serum, percent 3.5 (calc) [facility] <5.0 Normal LDL cholesterol, serum 91 MG/DL (CALC) [facility] Normal triglyceride, serum, fasting 111 mg/dL [facility] <150 Normal HDL cholesterol, serum 44 mg/dL [facility] > OR = 50 Low cholesterol, serum 156 mg/dL [facility] <200 Normal prothrombin time (patient) 10.4 s [facility] 9.0-11.5 Normal international normalized ratio (INR) 1.0 [facility] Normal basophils as percent of blood leukocytes 0.5 % [facility] Normal eosinophils as percent of blood leukocytes 1.9 % [facility] Normal monocyte count, blood 6.6 % [facility] Normal lymphocyte count, blood 29.0 % [facility] Normal neutrophils as percent of blood leukocytes 62 % [facility] Normal basophils, absolute, manual 46 cells/mcL [facility] 0-200 Normal eosinophils, absolute, manual 175 cells/mcL [facility] 15-500 Normal monocytes, absolute, manual 607 cells/mcL [facility] 200-950 Normal lymphocytes, absolute 2668 CELLS/UL [facility] 850-3900 Normal Absolute Neutrophil count 5704 cells/mcL [facility] 6406-9956 Normal mean platelet volume 9.0 fL [facility] 7.5-12.5 Normal platelet count 405 THOUSAND/UL [facility] 140-400 High red blood cell distribution width 16.4 % [facility] 11.0-15.0 High mean corpuscular hemoglobin concentration, RBC 30.7 G/DL [facility] 32.0-36.0 Low mean corpuscular hemoglobin, RBC 24.0 pg [facility] 27.0-33.0 Low mean corpuscular volume, RBC 78.2 fL [facility] 80.0-100.0 Low hematocrit, blood 35.5 % [facility] 35.0-45.0 Normal hemoglobin electrophoresis, blood 10.9 [facility] 11.7-15.5 Low erythrocyte (RBC) count 4.54 MILLION/UL [facility] 3.80-5.10 Normal leukocyte (white blood cells) count, blood 9.2 THOUSAND/UL [facility] 3.8-10.8 Normal calcium, serum 9.3 mg/dL [facility] 8.6-10.4 Normal carbon dioxide, venous blood 29 mmol/L [facility] 20-32 Normal chloride, serum 102 mmol/L [facility] 98-110 Normal potassium, serum 3.9 mmol/L [facility] 3.5-5.3 Normal sodium, serum 140 mmol/L [facility] 135-146 Normal urea nitrogen/creatinine ratio, serum 19 (calc) [facility] 6-22 Normal Estimated Glomerular Filtration Rate (calc) 44 mL/min/{1.73_ m2} [facility] > OR = 60 Low creatinine, serum 1.37 mg/dL [facility] 0.60-0.93 High urea nitrogen, blood 26 mg/dL [facility] 7-25 High blood glucose, random 148 mg/dL [facility] 65-99 High cholesterol, non-HDL, total 92 MG/DL (CALC) [facility] <130 Normal cholesterol/HDL ratio, serum, percent 2.8 (calc) [facility] <5.0 Normal LDL cholesterol, serum 75 MG/DL (CALC) [facility] Normal triglyceride, serum, fasting 85 mg/dL [facility] <150 Normal HDL cholesterol, serum 50 mg/dL [facility] > OR = 50 Normal cholesterol, serum 142 mg/dL [facility] <200 Normal prothrombin time (patient) 11.1 s [facility] 9.0-11.5 Normal international normalized ratio (INR) 1.1 [facility] Normal basophils as percent of blood leukocytes 0.4 % [facility] Normal eosinophils as percent of blood leukocytes 1.3 % [facility] Normal monocyte count, blood 6.4 % [facility] Normal lymphocyte count, blood 31.6 % [facility] Normal neutrophils as percent of blood leukocytes 60.3 % [facility] Normal basophils, absolute, manual 40 cells/mcL [facility] 0-200 Normal eosinophils, absolute, manual 129 cells/mcL [facility] 15-500 Normal monocytes, absolute, manual 634 cells/mcL [facility] 200-950 Normal lymphocytes, absolute 3128 CELLS/UL [facility] 850-3900 Normal Absolute Neutrophil count 5970 cells/mcL [facility] 1454-0332 Normal mean platelet volume 9.8 fL [facility] 7.5-12.5 Normal platelet count 416 THOUSAND/UL [facility] 140-400 High red blood cell distribution width 14.9 % [facility] 11.0-15.0 Normal mean corpuscular hemoglobin concentration, RBC 30.3 G/DL [facility] 32.0-36.0 Low mean corpuscular hemoglobin, RBC 24.4 pg [facility] 27.0-33.0 Low mean corpuscular volume, RBC 80.7 fL [facility] 80.0-100.0 Normal hematocrit, blood 39.0 % [facility] 35.0-45.0 Normal hemoglobin electrophoresis, blood 11.8 [facility] 11.7-15.5 Normal erythrocyte (RBC) count 4.83 MILLION/UL [facility] 3.80-5.10 Normal leukocyte (white blood cells) count, blood 9.9 THOUSAND/UL [facility] 3.8-10.8 Normal calcium, serum 9.6 mg/dL [facility] 8.6-10.4 Normal carbon dioxide, venous blood 29 mmol/L [facility] 20-32 Normal chloride, serum 96 mmol/L [facility] 98-110 Low potassium, serum 3.6 mmol/L [facility] 3.5-5.3 Normal sodium, serum 138 mmol/L [facility] 135-146 Normal urea nitrogen/creatinine ratio, serum 23 (calc) [facility] 6-22 High Estimated Glomerular Filtration Rate (calc) 55 mL/min/{1.73_ m2} [facility] > OR = 60 Low creatinine, serum 1.13 mg/dL [facility] 0.60-0.93 High urea nitrogen, blood 26 mg/dL [facility] 7-25 High blood glucose, random 140 mg/dL [facility] 65-99 High cholesterol, non-HDL, total 102 MG/DL (CALC) [facility] <130 Normal cholesterol/HDL ratio, serum, percent 3.9 (calc) [facility] <5.0 Normal LDL cholesterol, serum 69 MG/DL (CALC) [facility] Normal triglyceride, serum, fasting 253 mg/dL [facility] <150 High HDL cholesterol, serum 35 mg/dL [facility] > OR = 50 Low cholesterol, serum 137 mg/dL [facility] <200 Normal c-reactive protein, quantitative, serum 5.23 mg/L [facility] 0.00-3.00 High prothrombin time (patient) 10.5 s [facility] 9.0-11.5 Normal international normalized ratio (INR) 1.0 [facility] Normal basophils as percent of blood leukocytes 0.4 % [facility] Normal eosinophils as percent of blood leukocytes 1.7 % [facility] Normal monocyte count, blood 6.2 % [facility] Normal lymphocyte count, blood 19.9 % [facility] Normal neutrophils as percent of blood leukocytes 71.8 % [facility] Normal basophils, absolute, manual 49 cells/mcL [facility] 0-200 Normal eosinophils, absolute, manual 207 cells/mcL [facility] 15-500 Normal monocytes, absolute, manual 756 cells/mcL [facility] 200-950 Normal lymphocytes, absolute 2428 CELLS/UL [facility] 850-3900 Normal Absolute Neutrophil count 8760 cells/mcL [facility] 1855-0030 High mean platelet volume 9.7 fL [facility] 7.5-12.5 Normal platelet count 530 THOUSAND/UL [facility] 140-400 High red blood cell distribution width 17.5 % [facility] 11.0-15.0 High mean corpuscular hemoglobin concentration, RBC 31.4 G/DL [facility] 32.0-36.0 Low mean corpuscular hemoglobin, RBC 24.4 pg [facility] 27.0-33.0 Low mean corpuscular volume, RBC 77.9 fL [facility] 80.0-100.0 Low hematocrit, blood 40.5 % [facility] 35.0-45.0 Normal hemoglobin electrophoresis, blood 12.7 [facility] 11.7-15.5 Normal erythrocyte (RBC) count 5.20 MILLION/UL [facility] 3.80-5.10 High leukocyte (white blood cells) count, blood 12.2 THOUSAND/UL [facility] 3.8-10.8 High calcium, serum 9.7 mg/dL [facility] 8.6-10.4 Normal carbon dioxide, venous blood 22 mmol/L [facility] 20-32 Normal chloride, serum 98 mmol/L [facility] 98-110 Normal potassium, serum 4.6 mmol/L [facility] 3.5-5.3 Normal sodium, serum 133 mmol/L [facility] 135-146 Low urea nitrogen/creatinine ratio, serum 18 (calc) [facility] 6-22 Normal Estimated Glomerular Filtration Rate (calc) 47 mL/min/{1.73_ m2} [facility] > OR = 60 Low creatinine, serum 1.29 mg/dL [facility] 0.60-0.93 High urea nitrogen, blood 23 mg/dL [facility] 7-25 Normal blood glucose, random 148 mg/dL [facility] 65-99 High prothrombin time (patient) 10.0 s [facility] 9.0-11.5 Normal international normalized ratio (INR) 1.0 [facility] Normal basophils as percent of blood leukocytes 0.5 % [facility] Normal eosinophils as percent of blood leukocytes 1.0 % [facility] Normal monocyte count, blood 5.4 % [facility] Normal lymphocyte count, blood 24.9 % [facility] Normal neutrophils as percent of blood leukocytes 68.2 % [facility] Normal basophils, absolute, manual 60 cells/mcL [facility] 0-200 Normal eosinophils, absolute, manual 120 cells/mcL [facility] 15-500 Normal monocytes, absolute, manual 648 cells/mcL [facility] 200-950 Normal lymphocytes, absolute 2988 CELLS/UL [facility] 850-3900 Normal Absolute Neutrophil count 8184 cells/mcL [facility] 2459-8086 High mean platelet volume 9.2 fL [facility] 7.5-12.5 Normal platelet count 496 THOUSAND/UL [facility] 140-400 High red blood cell distribution width 14.2 % [facility] 11.0-15.0 Normal mean corpuscular hemoglobin concentration, RBC 31.9 G/DL [facility] 32.0-36.0 Low mean corpuscular hemoglobin, RBC 25.5 pg [facility] 27.0-33.0 Low mean corpuscular volume, RBC 79.7 fL [facility] 80.0-100.0 Low hematocrit, blood 38.5 % [facility] 35.0-45.0 Normal hemoglobin electrophoresis, blood 12.3 [facility] 11.7-15.5 Normal erythrocyte (RBC) count 4.83 MILLION/UL [facility] 3.80-5.10 Normal leukocyte (white blood cells) count, blood 12.0 THOUSAND/UL [facility] 3.8-10.8 High calcium, serum 9.9 mg/dL [facility] 8.6-10.4 Normal carbon dioxide, venous blood 28 mmol/L [facility] 20-32 Normal chloride, serum 102 mmol/L [facility] 98-110 Normal potassium, serum 3.8 mmol/L [facility] 3.5-5.3 Normal sodium, serum 141 mmol/L [facility] 135-146 Normal urea nitrogen/creatinine ratio, serum 14 (calc) [facility] 6-22 Normal Estimated Glomerular Filtration Rate (calc) 55 mL/min/{1.73_ m2} [facility] > OR = 60 Low creatinine, serum 1.13 mg/dL [facility] 0.60-0.93 High urea nitrogen, blood 16 mg/dL [facility] 7-25 Normal blood glucose, random 117 mg/dL [facility] 65-99 High cholesterol, non-HDL, total 163 MG/DL (CALC) [facility] <130 High cholesterol/HDL ratio, serum, percent 4.4 (calc) [facility] <5.0 Normal LDL cholesterol, serum 134 MG/DL (CALC) [facility] High triglyceride, serum, fasting 154 mg/dL [facility] <150 High HDL cholesterol, serum 48 mg/dL [facility] > OR = 50 Low cholesterol, serum 211 mg/dL [facility] <200 High ferritin, serum 22 ng/mL [facility] 15-150 iron saturation percent, serum 17 % [facility] 15-55 iron, serum 60 ug/dL [facility] 27-139 iron binding capacity, unsaturated 294 ug/dL [facility] 442-443 0215/12 /17 iron binding capacity, total 354 ug/dL [facility] 521-732 7968/12 /17 basophil count, absolute 0.1 x10E3/uL [facility] 0.0-0.2 Eosinophil Absolute Count 0.3 X10E3/UL [facility] 0.0-0.4 monocyte count, blood, automated 0.7 X10E3/UL [facility] 0.1-0.9 lymphocyte count, blood, automated 3.0 X10E3/UL [facility] 0.7-3.1 Absolute Neutrophils 4.6 X10E3/UL [facility] 1.4-7.0 basophils as percent of blood leukocytes 1 % [facility] Not Estab. eosinophils as percent of blood leukocytes 4 % [facility] Not Estab. monocytes as percent of blood leukocytes 8 % [facility] Not Estab. lymphocytes as percent of blood leukocytes 34 % [facility] Not Estab. neutrophils as percent of blood leukocytes 53 % [facility] Not Estab. platelet count 358 X10E3/UL [facility] 023-020 1244/12 /17 red blood cell distribution width 15.0 % [facility] 11.7-15.4 mean corpuscular hemoglobin concentration, RBC 32.6 G/DL [facility] 31.5-35.7 mean corpuscular hemoglobin, RBC 25.7 pg [facility] 26.6-33.0 Low mean corpuscular volume, RBC 79 fL [facility] 79-97 hematocrit, blood 34.4 % [facility] 34.0-46.6 hemoglobin, blood 11.2 g/dL [facility] 11.1-15.9 erythrocyte (RBC) count 4.36 X10E6/UL [facility] 3.77-5.28 leukocyte count, blood 8.6 X10E3/UL [facility] 3.4-10.8 LDL cholesterol, serum 144 mg/dL [facility] ferritin, serum 21 ng/mL [facility] 15-150 pro brain natriuretic peptide 144 pg/mL [facility] 0-301 prothrombin time (patient) 10.4 s [facility] 9.1-12.0 international normalized ratio (INR) 1.0 [facility] 0.8-1.2 iron saturation percent, serum 25 % [facility] 15-55 iron, serum 96 ug/dL [facility] 27-139 iron binding capacity, unsaturated 284 ug/dL [facility] 319-068 2418/08 /20 iron binding capacity, total 380 ug/dL [facility] 396-162 2514/08 /20 lipoprotein, beta, serum, point, quantitative, calculated 144 mg/dL [facility] 0-99 High very low density lipoproteins 30 mg/dL [facility] 5-40 HDL cholesterol, serum 47 mg/dL [facility] >39 triglyceride, serum, random 151 mg/dL [facility] 0-149 High cholesterol, serum 221 mg/dL [facility] 100-199 High calcium, serum 10.2 mg/dL [facility] 8.7-10.3 carbon dioxide, venous blood 27 mmol/L [facility] 20-29 chloride, serum 98 mmol/L [facility] 96-106 potassium, serum 3.7 mmol/L [facility] 3.5-5.2 sodium, serum 141 mmol/L [facility] 849-483 3228/08 /20 urea nitrogen/creatinine ratio, serum 17 [facility] 12-28 eGFR if 51 mL/min/{1.73_ m2} [facility] >59 Low eGFR if not 44 mL/min/{1.73_ m2} [facility] >59 Low creatinine, serum 1.21 mg/dL [facility] 0.57-1.00 High urea nitrogen, blood 20 mg/dL [facility] 8-27 blood glucose, random 137 mg/dL [facility] 65-99 High basophil count, absolute 0.1 x10E3/uL [facility] 0.0-0.2 Eosinophil Absolute Count 0.2 X10E3/UL [facility] 0.0-0.4 monocyte count, blood, automated 0.6 X10E3/UL [facility] 0.1-0.9 lymphocyte count, blood, automated 3.2 X10E3/UL [facility] 0.7-3.1 High Absolute Neutrophils 5.8 X10E3/UL [facility] 1.4-7.0 basophils as percent of blood leukocytes 1 % [facility] Not Estab. eosinophils as percent of blood leukocytes 2 % [facility] Not Estab. monocytes as percent of blood leukocytes 6 % [facility] Not Estab. lymphocytes as percent of blood leukocytes 32 % [facility] Not Estab. neutrophils as percent of blood leukocytes 59 % [facility] Not Estab. platelet count 425 X10E3/UL [facility] 279-783 4681/08 /20 red blood cell distribution width 14.7 % [facility] 11.7-15.4 mean corpuscular hemoglobin concentration, RBC 32.6 G/DL [facility] 31.5-35.7 mean corpuscular hemoglobin, RBC [facility].2 [facility] mean corpuscular volume, RBC 83 fL [facility]97 hematocrit, blood 37.1 % [facility] 34.0-46.6 hemoglobin, blood 12.1 g/dL [facility] 11.1-15.9 erythrocyte (RBC) count 4.45 X10E6/UL [facility] 3.77-5.28 leukocyte count, blood 9.9 X10E3/UL [facility] 3.4-10.8 triglyceride, serum, random 218 mg/dL [facility] triiodothyronine (T3), serum 125 ng/dL [facility] magnesium, serum 1.8 mg/dL [facility] thyroid stimulating hormone, serum <0.015 [facility] thyroxine, serum, free 1.16 ng/dL [facility] hemoglobin A1C, blood, as % of total hemoglobin 9.0 % [facility] triglyceride, serum, fasting 218 mg/dL [facility] HDL cholesterol, serum 39 mg/dL [facility] LDL cholesterol, serum 116 mg/dL [facility] cholesterol, serum 181 mg/dL [facility] red blood cell distribution width 14.1 % [facility] platelet count 315 10*3/mm3 [facility] mean corpuscular hemoglobin concentration, RBC 32.6 % [facility] mean corpuscular hemoglobin, RBC 28.2 pg [facility] mean corpuscular volume, RBC 86.3 fL [facility] hematocrit, blood 38.3 % [facility] hemoglobin, blood 12.5 g/dL [facility] erythrocyte (RBC) count 4.44 10*6/mm3 [facility] leukocyte count, blood 11.2 10*3/mm3 [facility] calcium, serum 10.1 mg/dL [facility] blood glucose, random 262 mg/dL [facility] creatinine, serum 0.90 mg/dL [facility] urea nitrogen, blood 21 mg/dL [facility] carbon dioxide, venous blood 30 mmol/L [facility] chloride, serum 96 mmol/L [facility] potassium, serum 3.9 mmol/L [facility] sodium, serum 135 mmol/L [facility] alanine aminotransferase (SGPT), serum 16 1/L [facility] aspartate aminotransferase (SGOT), serum 16 1/L [facility] creatinine, serum 0.90 mg/dL [facility] potassium, serum 4.3 mmol/L [facility] sodium, serum 143 mmol/L [facility] platelet count 525 10*3/uL [facility] hematocrit, blood 34.7 % [facility] potassium, serum 4.6 mmol/L [facility] sodium, serum 140 mmol/L [facility] creatinine, serum 0.91 mg/dL [facility] thyroid stimulating hormone, serum 0.161 u[IU]/mL [facility] B-type natriuretic peptide 47.0 pg/mL [facility] platelet count 671 10*3/uL [facility] hematocrit, blood 29.9 % [facility] creatinine, serum 1.98 mg/dL [facility] potassium, serum 4.3 mmol/L [facility] sodium, serum 135 mmol/L [facility] platelet count 322 10*3/uL [facility] hematocrit, blood 30.4 % [facility] prothrombin time (patient) 10.6 s LinkLog 9.0-11.5 Normal international normalized ratio (INR) 1.0 LinkLogic Normal basophils as percent of blood leukocytes 0.4 % [facility]Log[facility] Normal eosinophils as percent of blood leukocytes 1.4 % [facility] Normal monocyte count, blood 6.8 % [facility] Normal lymphocyte count, blood 32.8 % [facility] Normal neutrophils as percent of blood leukocytes 58.6 % [facility] Normal basophils, absolute, manual 48 cells/mcL [facility] 0-200 Normal eosinophils, absolute, manual 167 cells/mcL [facility] 15-500 Normal monocytes, absolute, manual 809 cells/mcL [facility] 200-950 Normal lymphocytes, absolute 3903 CELLS/UL LinkLogic 850-3900 High Absolute Neutrophil count 6973 cells/mcL [facility]Log[facility] 2778-9919 Normal platelet count 373 THOUSAND/UL LinkLogic 140-400 Normal red blood cell distribution width 13.9 % [facility] 11.0-15.0 Normal mean corpuscular hemoglobin concentration, RBC 33.3 G/DL [facility] 32.0-36.0 Normal mean corpuscular hemoglobin, RBC 27.5 pg [facility] 27.0-33.0 Normal mean corpuscular volume, RBC 82.4 fL [facility] 80.0-100.0 Normal hematocrit, blood 34.1 % [facility] 35.0-45.0 Low hemoglobin electrophoresis, blood 11.4 [facility]Log[facility] 11.7-15.5 Low erythrocyte (RBC) count 4.14 MILLION/UL LinkLogic 3.80-5.10 Normal leukocyte (white blood cells) count, blood 11.9 THOUSAND/UL LinkLog[facility] 3.8-10.8 High calcium, serum 9.5 mg/dL [facility]Log[facility] 8.6-10.4 Normal carbon dioxide, venous blood 24 mmol/L [facility] 21-33 Normal chloride, serum 99 mmol/L [facility] 98-110 Normal potassium, serum 4.2 mmol/L [facility]Log[facility] 3.5-5.3 Normal sodium, serum 137 mmol/L [facility]Log[facility] 135-146 Normal urea nitrogen/creatinine ratio, serum 21 (calc) LinkLogic 6-22 Normal Estimated Glomerular Filtration Rate (calc) 30 mL/min/{1.73_ m2} LinkLogic > OR = 60 Low creatinine, serum 2.00 mg/dL [facility]Log[facility] 0.50-0.99 High urea nitrogen, blood 41 mg/dL [facility] 7-25 High blood glucose, random 127 mg/dL [facility]Log[facility] 65-99 High triglyceride, serum, fasting 184 mg/dL [facility] HDL cholesterol, serum 40 mg/dL [facility] LDL cholesterol, serum 65 mg/dL [facility] cholesterol, serum 142 mg/dL [facility] anion gap, serum 14 [facility] calcium, serum 9.3 mg/dL [facility] blood glucose, fasting 278 mg/dL [facility] creatinine, serum 1.40 mg/dL [facility] urea nitrogen, blood 28 mg/dL [facility] carbon dioxide, serum, total 27 mmol/L [facility] chloride, serum 98 mmol/L [facility] potassium, serum 4.0 mmol/L [facility] sodium, serum 135 mmol/L [facility] prothrombin time (patient) 10.0 s LinkLogic 9.0-11.5 Normal international normalized ratio (INR) 1.0 [facility]Log[facility] Normal platelet count 358 THOUSAND/UL LinkLog[facility] 140-400 Normal red blood cell distribution width 15.9 % [facility] 11.0-15.0 High mean corpuscular hemoglobin concentration, RBC 32.2 G/DL [facility]Log[facility] 32.0-36.0 Normal mean corpuscular hemoglobin, RBC 27.0 pg [facility]Logic 27.0-33.0 Normal mean corpuscular volume, RBC 83.9 fL [facility] 80.0-100.0 Normal hematocrit, blood 35.5 % [facility] 35.0-45.0 Normal hemoglobin electrophoresis, blood 11.4 [facility] 11.7-15.5 Low erythrocyte (RBC) count 4.23 MILLION/UL [facility]Log[facility] 3.80-5.10 Normal leukocyte (white blood cells) count, blood 9.4 THOUSAND/UL LinkLog 3.8-10.8 Normal calcium, serum 9.0 mg/dL [facility] 8.6-10.2 Normal carbon dioxide, venous blood 27 mmol/L [facility] 21-33 Normal chloride, serum 99 mmol/L [facility] 98-110 Normal potassium, serum 4.5 mmol/L [facility] 3.5-5.3 Normal sodium, serum 138 mmol/L [facility] 135-146 Normal urea nitrogen/creatinine ratio, serum NOT APPLICABLE (calc) LinkLog 6- Estimated Glomerular Filtration Rate (calc) >60 mL/min/1.73m2 LinkLogic > OR = 60 Normal creatinine, serum 0.92 mg/dL [facility] 0.60-1.18 Normal urea nitrogen, blood 19 mg/dL [facility] 7-25 Normal blood glucose, random 227 mg/dL [facility]Log[facility] 65-99 High blood glucose, fasting 134 mg/dL Austyn Walters RN urea nitrogen, blood 18 mg/dL Austyn Selena BELLAMY carbon dioxide, serum, total 31 mmol/L Austyn Caleb JOSESITO chloride, serum 105 mmol/L [facility], serum 4.7 mmol/L [facility] sodium[facility] serum 138 mmol/L [facility] platelet count 362 10*3/uL Austyn Caleb JOSESITO hematocrit, blood 34.5 % Austyn Selena hemoglobin, blood 10.5 g/dL Austyn Selena erythrocyte (RBC) count 10.5 10*6/mm3 [facility] monocyte count, blood 9.0 10*3/mm3 [facility] lymphocyte count, blood 39.1 10*3/mm3 [facility] monocytes as percent of blood leukocytes 9.0 % [facility] as percent of blood leukocytes 39.1 % [facility] leukocyte count, blood 4.02 10*3/mm3 Austyn Walters RN HISTORY OF MEDICATION USE Medication Status Instructions Dates Provider Indications Com ments atorvastatin 80 mg tablet active TAKE 1 TABLET BY MOUTH EVERY DAY AT NIGHT Ira Daniel Kerendia 10 mg tablet active TAKE 1 TABLET BY MOUTH EVERY DAY Ira Sanchez furosemide 40 mg tablet active TAKE 1 TABLET BY MOUTH EVERY DAY Henna Adams atorvastatin 40 mg tablet completed TAKE 1 TABLET BY MOUTH EVERY DAY AT NIGHT - Ira Sanchez losartan 100 mg tablet active TAKE 1 TABLET BY MOUTH EVERY DAY Juanpablo Reinoso MD Ambanyi 5 mg tablet completed 1 tablet as needed Take 1 tablet at night as needed - Cleo Ventimiglia FLIGHT RADIO OPERATOR nitroglycerin 0.4 mg tablet, sublingual active PLACE 1 TABLET UNDER TONGUE ONCE A DAY Racquel Henry clopidogrel 75 mg tablet active TAKE 1 TABLET BY MOUTH EVERY DAY [facility] buspirone 7.5 mg tablet active Cleo Ventimiglia FLIGHT RADIO OPERATOR Ozempic 0.25 mg or 0.5 mg (2 mg/3 mL) pen injector active INJECT 0.25MG SUBCUTANEOUSLY ONCE WEEKLY X4 WEEKS THEN 0.5MG WEEKLY. REDUCES RISK OF MAJOR CV EVENTS Jana Saldivar tramadol 50 mg tablet active 2 tablet by mouth three times a day as needed for pain Raymond Guerra MD tramadol 100 mg tablet completed 1 tablet by mouth three times a day as needed for pain - Raymond Guerra MD cyanocobalamin (vitamin B-12) 1,000 mcg capsule active Raymond Guerra MD atorvastatin 80 mg tablet completed Take 1 tablet by mouth every night - Kelechi Goldstein Kerendia 10 mg tablet completed Take 1 tablet by mouth once a day - Ira Sanchez losartan 50 mg tablet completed TAKE 1 TABLET BY MOUTH EVERY DAY - Juanpablo Reinoso MD D3-2000 50 mcg (2,000 unit) capsule active Raymond Guerra MD clopidogrel 75 mg tablet completed Take 1 tablet by mouth once a day - Kelechi Goldstein Ozempic 0.25 mg or 0.5 mg(2 mg/1.5 mL) pen injector completed Inject 1/2 mg subcutaneously once a week INJECT 0.25MG SUBCUTANEOUSLY ONCE WEEKLY X4 WEEKS, THEN INCREASE TO 0.5MG SUBCUTANEOUSLY WEEKLY. REDUCES RISK OF MAJOR CV EVENTS - Lisa Schuster nitroglycerin 0.4 mg tablet, sublingual completed Place 1 tablet under tongue once a day - Racquel Henry Xarelto 2.5 mg tablet active TAKE 1 TAB BY MOUTH TWICE A DAY TO REDUCE RISK OF CV , MS, OR STROKE IN PATIENTS W/ CAD OR PAD Lisa Schuster Xarelto 2.5 mg tablet completed - Graciela Borrego metoprolol succinate 25 mg tablet extended release 24 hr completed TAKE 1 TABLET BY MOUTH EVERY DAY DIRECTED - Juanpablo Reinoso MD Farxiga 10 mg tablet active TAKE 1 TABLET BY MOUTH EVERY DAY Cora Conrad Vascepa 1 gram capsule active TAKE 2 CAPSULES BY MOUTH TWICE A DAY Amanda Mcleod Solostar U-100 Insulin 100 unit/mL (3 mL) insulin pen active Inject 22 unit once a day Cleo Pathak FLIGHT RADIO OPERATOR insulin lispro 100 unit/mL insulin pen active Dayanna Beckett ezetimibe 10 mg tablet active Take 1 tablet by mouth at bedtime Dayanna Beckett alprazolam 0.5 mg tablet active Take tablet by mouth twice a day Dayanna Beckett Farxiga 10 mg tablet completed TAKE 1 TABLET BY MOUTH EVERY DAY.(REDUCES CARDIOVASCULAR & HEART FAILURE HOSPITALIZATIONS ) - Jennystdevin Tim Vascepa 1 gram capsule completed TAKE 2 CAPSULES BY MOUTH TWICE DAILY - Chastity Tim Ozempic 0.25 mg or 0.5 mg(2 mg/1.5 mL) pen injector completed INJECT 0.25MG SUBCUTANEOUSLY ONCE WEEKLY X4 WEEKS, THEN INCREASE TO 0.5MG SUBCUTANEOUSLY WEEKLY. REDUCES RISK OF MAJOR CV EVENTS - Ira Sanchez metoprolol succinate 25 mg tablet extended release 24 hr completed Take 1 tablet by mouth once a day as directed - Juanpablo Reinoso MD Brilinta 90 mg tablet completed TAKE 1 TABLET (90 MG TOTAL) BY MOUTH 2 (TWO) TIMES A DAY - Melanie Moe dicyclomine 20 mg tablet active Ira Sanchez sertraline 50 mg tablet active Ira Sanchez Ozempic 0.25 mg or 0.5 mg(2 mg/1.5 mL) pen injector completed subcutaneously once a day - Eric Oshea Farxiga 10 mg tablet completed 1 tablet by mouth once a day - Raymond Guerra MD Vascepa 1 gram capsule completed 2 capsule by mouth twice a day - Raymond Guerra MD nitroglycerin 0.4 mg tablet, sublingual completed tablet under tongue once a day - Saritha Marquez VITAMIN D (ERGOCALCIFEROL) 14726 UNIT ORAL CAPSULE completed One capsule weekly - Julissa Newton Diovan 40 mg tablet completed tablet by mouth - Juanpablo Reinoso MD MIRTAZAPINE 15 MG ORAL TABLET completed - Ira Sanchez metoprolol succinate 25 mg tablet extended release 24 hr completed Take tablet by mouth once a day - Juanpablo Reinoso MD AZITHROMYCIN 250 MG ORAL TABLET completed - Julissa Newton atorvastatin 20 mg tablet completed Take 1 tablet by mouth every night - Raymond Guerra MD omeprazole 20 mg tablet,delayed release (DR/EC) active tablet by mouth once a day Trinidad Carlisle FLUTICASONE PROPIONATE 50 MCG/ACT NASAL SUSPENSION completed ONCE DAILY - Ira Sanchez NORCO 10-325 MG ORAL TABLET completed THREE TIMES DAILY NEEDED - Ira Sanchez AMBIEN 10 MG ORAL TABLET completed ONE TAB. AT BEDTIME NEEDED - Becky Willoughby metformin 500 mg tablet completed 1 tablet by mouth twice a day - Cleo VALERO NORCO 10-325 MG ORAL TABLET completed 1 tab every 6hrs as needed for pain - Austyn Sanchez RN IMDUR 60 MG ORAL TABLET EXTENDED RELEASE 24 HOUR completed one tab daily - Austyn Sanchez RN ZOLPIDEM TARTRATE ER 6.25 MG ORAL TABLET EXTENDED RELEASE completed 1 tab daily - Denjanelleannamaria Martínez B COMPLEX ORAL TABLET completed daily - Trinidad Carlisle FISH OIL CONCENTRATE 300 MG ORAL CAPSULE completed 1000mg daily - Austyn Sanchez RN [facility] VITAMIN E CAPSULE completed 2 caps twice a day - Austyn Sanchez RN NITROLINGUAL 0.4 MG/SPRAY TRANSLINGUAL SOLUTION completed 1 SPRAY EVERY 5 MINUTES X 3 IF NO RELIEF GO EMERGENCY ROOM. - Jenny Ny RN NITROLINGUAL 0.4 MG/SPRAY TRANSLINGUAL SOLUTION completed ONE SPRAY PRN 4.9GM. BOTTLE every 5 minutes up to 3 x's - Austyn Sanchez RN VYTORIN 10-40 MG ORAL TABLET completed ONE TAB. AT BEDTIME - Marc Díaz Levemir U-100 Insulin 100 unit/mL solution active subcutaneously twice a day Austyn Sanchez RN AMBIEN TABLET completed 1 tablet at bedtime as needed - Austyn Sanchez RN SINGULAIR 10 MG ORAL TABLET completed one tab daily - Julissa Newton MAGNESIUM OXIDE TABLET completed 400mg daily - Trinidad Carlisle AVANDIA 4 MG ORAL TABLET completed one tab. daily - Austyn Sanchez RN LISINOPRIL 40 MG ORAL TABLET completed ONE TAB. DAILY - Trinidad Carlisle ZETIA 10 MG ORAL TABLET completed ONE TAB. DAILY - Caitlyn Zuñiga NITROSTAT TABLET SUBLINGUAL completed - Elvis Carrington TAPAZOLE 10 MG ORAL TABLET completed 1 tablet by mouth twice daily - Austyn Sanchez RN SIMVASTATIN 40 MG ORAL TABLET completed 1 tablet by mouth once daily - Caitlyn Zuñiga LORTAB 5-500 MG ORAL TABLET completed 1 tablet by mouth every 6 hours as needed - Austyn Sanchez RN RANEXA 1000 MG ORAL TABLET EXTENDED RELEASE 12 HOUR completed ONE TAB. TWICE DAILY - Elvis Manacop LISINOPRIL 20 MG ORAL TABLET completed 2 daily - Elvis Rachelacop VYTORIN 10-40 MG ORAL TABLET completed 1 daily - Elvis Rachelacop amitriptyline 100 mg tablet completed Take 1 tablet by mouth once a day - Cleo Kapilmiglramya FLIGHT RADIO OPERATOR LORCET 10/650 TABLET completed QD - Taejanelleannamaria Curielran ALPRAZOLAM 0.5 MG ORAL TABLET completed 1 tablet by mouth three times daily as needed - Gisselle Nevin AVANDIA 4 MG ORAL TABLET completed one tab. daily - Elvis Rachelacowanda GLIPIZIDE 5 MG ORAL TABLET completed take one tab daily - Trinidad Carlisle METFORMIN HCL 500 MG ORAL TABLET completed 1 tablet by mouth three times daily with meals - Austyn Sanchez RN aspirin 325 mg tablet,delayed release (/EC) completed 1 tablet by mouth once a day - Becky Willoughby POTASSIUM CHLORIDE ANTONIETTA ER 10 MEQ ORAL TABLET EXTENDED RELEASE completed ONE TAB. DAILY - Elvis Rachelacowanda Lasix 40 mg tablet completed 1 tablet by mouth once a day - Henna Adams FOSINOPRIL SODIUM 20 MG ORAL TABLET completed QD - Saritha Marquez TOPROL XL 100 MG ORAL TABLET EXTENDED RELEASE 24 HOUR completed ONE TAB DAILY - Marc Díaz Plavix 75 mg tablet completed tablet by mouth once a day - Juanpablo Reinoso MD TRICOR 145 MG ORAL TABLET completed QD - Saritha Marquez DILTIAZEM HCL ER 180 MG ORAL CAPSULE EXTENDED RELEASE 24 HOUR completed take once a day - Juanpablo Reinoso MD SOCIAL HISTORY Date Observation Value Provider personal history of marijuana use no Gema Wells drug use no Gema tinoco alcohol use no Gema tinoco passive cigarette sm arthur exposure no Gema Wells smoking status Never smoker Gema Barneyrula culp personal history of marijuana use no Gema Wells drug use no Gema Alford h alcohol use no Gema Alfordang h passive cigarette sm arthur exposure no Gema Mariscalrhea smoking status Never smoker Gema Barneyrula [facility] personal history of marijuana use no Cleo Ventimiglia [facility] drug use no Cleo Ventimig linsey [facility] alcohol use no Cleo Ventimig linsey [facility] passive cigarette sm arthur exposure no Cleo Ventimiglia [facility] smoking status Never smoker Cleo Ventim iglia [facility] drug use no Bryan Lex alcohol use no Bryan Lex passive cigarette sm arthur exposure no Bryan Lex smoking status Never smoker Bryan burger drug use no Sheyla Busby alcohol use no Sheyla Kehinde passive cigarette sm arthur exposure no Sheyla Kehinde smoking status Never smoker Sheyla Busby social history reviewed E&M revi ewed - no changes required Juanpablo Reinoso MD smoking status Never smoker Roxy Cruz social history reviewed E&M revi ewed - no changes required Bryan Lex drug use no Cleo Ventimig linsey [facility] alcohol use no Cleo Ventimig linsey [facility] smoking status Never smoker Cleo Ventim iglia [facility] social history E&M Marital Statu s: L jayce with family/friends E thnicity: Smoking History: P luis enrique has never smoked. Raymond Guerra MD social history reviewed E&M revi ewed - no changes required Raymond Guerra MD smoking status Never smoker Zena Hanson social history E&M Marital Statu s: L jayce with family/friends E thnicity: Smoking History: P atbryant has never smoked. Ludmila Casarez social history reviewed E&M revi ewed - no changes required Ludmila Casarez caffeine use, averag e drinks per day 0 /d Lisa Schuster passive cigarette sm arthur exposure no Lisa Landen smoking status Never smoker Lisa Ghassan elise social history E&M Marital Statu s: L jayce with family/friends E thnicity: Smoking History: P atbraynt has never smoked. Juanpablo Reinoso MD social history reviewed E&M revi ewed - no changes required Juanpablo Reinoso MD caffeine use, averag e drinks per day 0 /d Lisa Schuster passive cigarette sm arthur exposure no Lisa Landen smoking status Never smoker Lisa Ghassan elise caffeine use, averag e drinks per day 0 /d Yadira Jackman passive cigarette sm arthur exposure no Yadira Jackman smoking status Never smoker Yadira Jackman social history reviewed E&M revi ewed - no changes required Ludmila Casarez social history E&M Marital Statu s: L jayce with family/friends E thnicity: Smoking History: P luis enrique has never smoked. Ludmila Casarez social history reviewed E&M revi ewed - no changes required Ludmila Casarez caffeine use, averag e drinks per day 0 /d Lisa Schuster passive cigarette sm arthur exposure no Lisa Landen smoking status Never smoker Lisa Ghassan elise social history reviewed E&M revi ewed - no changes required Ania Ramirez MD social history reviewed E&M revi ewed - no changes required Ania Ramirez MD social history E&M Marital Statu s: L jayce with family/friends E thnicity: Smoking History: P atient has never smoked. Zena Gabriel NP social history reviewed E&M revi ewed - no changes required Zena Harvey BIGGS caffeine use, averag e drinks per day 0 /d Ira Amadojaja passive cigarette sm arthur exposure no Ira Waynekunemili smoking status Never smoker Ira cedeno social history reviewed E&M revi ewed - no changes required Juanpablo Reinoso MD social history E&M Marital Statu s: L jayce with family/friends E thnicity: Smoking History: P atbryant has never smoked. Juanpablo Reinoso MD social history reviewed E&M revi ewed - no changes required Juanpablo Reinoso MD caffeine use, averag e drinks per day 0 /d Carolyn [place] passive cigarette sm arthur exposure no Carolyn Lisandro smoking status Never smoker Carolyn Rani s social history E&M Marital Statu s: L jayce with family/friends E thnicity: Smoking History: P atbryant has never smoked. Juanpablo Reinoso MD social history reviewed E&M revi ewed - no changes required Juanpablo Reinoso MD caffeine use, averag e drinks per day 0 /d Becky Willoughby passive cigarette sm arthur exposure no Becky Willoughby smoking status Never smoker Becky cruz social history E&M Marital Statu s: L jayce with family/friends E thnicity: Smoking History: P atbryant has never smoked. Juanpablo Reinoso MD social history reviewed E&M revi ewed - no changes required Juanpablo Reinoso MD caffeine use, averag e drinks per day 0 /d Ira Sanchez passive cigarette sm arthur exposure no Ira Sanchez smoking status Never smoker Ira cedeno social history E&M Marital Statu s: L jayce with family/friends E thnicity: Smoking History: P atbryant has never smoked. Ludmila Casarez social history reviewed E&M revi ewed - no changes required Ludmila Casarez caffeine use, averag e drinks per day 0 /d Sherkeitha Aman passive cigarette sm arthur exposure no Sherkeitha Newton smoking status Never smoker Julissa marie number of grandchildren Juanpablo Christensen smoking status Never smoker Dora nascimento social history reviewed E&M revi ewed - no changes required Dora Armstrong caffeine use, averag e drinks per day 0 /d Netoitha Aman passive cigarette sm arthur exposure no Sherkeitha Newton social history E&M Marital Statu s: L jayce with family/friends E thnicity: Smoking History: P luis enrique has never smoked. Raymond Guerra MD social history reviewed E&M revi ewed - no changes required Raymond Guerra MD caffeine use, averag e drinks per day 0 /d Gisselle Rooney passive cigarette sm arthur exposure no Gisselle Rooney smoking status Never smoker Gisselle Rooney social history reviewed E&M revi ewed - no changes required Marc Díaz caffeine use, averag e drinks per day 0 /d Ira Sanchez passive cigarette sm arthur exposure no Ira Sanchez smoking status Never smoker Ira cedeno social history E&M Marital Statu s: L jayce with family/friends E thnicity: Smoking History: P luis enrique has never smoked. Marc Díaz social history reviewed E&M revi ewed - no changes required Marc Díaz caffeine use, averag e drinks per day 0 /d Becky Willoughby passive cigarette sm arthur exposure no Becky Willoughby smoking status Never smoker Becky cruz social history E&M Marital Statu s: L jayce with family/friends E thnicity: Smoking History: P atbryant has never smoked. Shade Arrington MD social history reviewed E&M revi ewed - no changes required Shade Arrington MD alcohol use, average drinks per day none Becky Willoughby alcohol use no Becky baker caffeine use, averag e drinks per day 0 /d Becky Willoughby drug use no Becky baker passive cigarette sm arthur exposure no Becky Willoughby smoking status Never smoker Becky cruz social history reviewed E&M revi ewed - no changes required Marc Díaz social history E&M Marital Statu s: L jayce with family/friends E thnicity: Smoking History: P luis enrique has never smoked. Marc Díaz alcohol use, average drinks per day none Leanna Bland alcohol use no Leanna Balnd caffeine use, averag e drinks per day 0 /d Marc Díaz drug use no Leanna Bland passive cigarette sm arthur exposure no Leanna Bland smoking status Never smoker Leanna Bland alcohol use, average drinks per day none Trinidad Carlisle caffeine use, averag e drinks per day no Trinidad Carlisle drug use no Trinidad Carlisle passive cigarette sm arthur exposure no Trinidad Carlisle smoking status Never smoker Trinidad Denny n social history reviewed E&M reviewed Juanpablo Reinoso MD social history reviewed E&M reviewed Austyn Sanchez RN drug use no Austyn Sanchez RN passive cigarette sm arthur exposure no Austyn Sanchez RN social history reviewed E&M reviewed Austyn Sanchez RN smoking status never smoker Austyn Sanchez RN social history reviewed E&M reviewed Austyn Sanchez RN social history reviewed E&M reviewed Austyn Sanchez RN social history reviewed E&M reviewed Austyn Sanchez RN social history reviewed E&M reviewed Ausytn Sanchez RN social history reviewed E&M reviewed Austyn Sanchez RN social history reviewed E&M reviewed Austyn Sanchez RN social history reviewed E&M reviewed Austyn Sanchez RN social history reviewed E&M reviewed Austyn Sanchez RN social history reviewed E&M reviewed Juanpablo Reinoso MD social history reviewed E&M reviewed Austyn Sanchez RN social history reviewed E&M reviewed Austyn Sanchez RN social history reviewed E&M reviewed Austyn Sanchez RN social history E&M Marital Statu s: L jayce with family/friends E thnicity: Juanpablo Reinoso MD social history reviewed E&M reviewed Austyn Sanchez RN social history reviewed E&M reviewed Austyn Sanchez RN social history E&M Marital Statu s: L jayce with family/friends E thnicity: Juanpablo Reinoso MD caffeine use, averag e drinks per day no LinkLogic alcohol use, average drinks per day none [facility] smoking status Non-smoker [facility] FUNCTIONAL STATUS Date Observation Value Provider HRA, CV Assess/Plan, Angina (inactive) Management Plan continue current therapy Gema Wells HRA, CV Assess/Plan, Angina (inactive) Management Plan continue current therapy Cleo Ventimiglia FLIGHT RADIO OPERATOR HRA, CV Assess/Plan, Angina (inactive) Management Plan continue current therapy Bryan Lex HRA, CV Assess/Plan, Angina (inactive) Management Plan continue current therapy Bryan Lex HRA, CV Assess/Plan, Angina (inactive) Management Plan continue current therapy Juanpablo Reinoso MD HRA, CV Assess/Plan, Angina (inactive) Management Plan continue current therapy Cleo Ventimiglia FLIGHT RADIO OPERATOR HRA, CV Assess/Plan, Angina (inactive) Management Plan continue current therapy Raymond Guerra MD HRA, CV Assess/Plan, Angina (inactive) Management Plan continue current therapy Ludmila Casarez HRA, CV Assess/Plan, Angina (inactive) Management Plan continue current therapy Juanpablo Reinoso MD HRA, CV Assess/Plan, Angina (inactive) Management Plan continue current therapy Ludmilabrennan Casarez HRA, CV Assess/Plan, Angina (inactive) Management Plan continue current therapy Ludmilashakila Casarez HRA, CV Assess/Plan, Angina (inactive) Management Plan continue current therapy Ania Ramirez MD HRA, CV Assess/Plan, Angina (inactive) Management Plan continue current therapy Ania Ramirez MD HRA, CV Assess/Plan, Angina (inactive) Management Plan continue current therapy Ludmila Casarez HRA, CV Assess/Plan, Angina (inactive) Management Plan continue current therapy Juanpablo Reinoso MD HRA, CV Assess/Plan, Angina (inactive) Management Plan continue current therapy Juanpablo Reinoso MD HRA, CV Assess/Plan, Angina (inactive) Management Plan continue current therapy Juanpablo Reinoso MD HRA, CV Assess/Plan, Angina (inactive) Management Plan continue current therapy Juanpablo Reinoso MD HRA, CV Assess/Plan, Angina (inactive) Management Plan continue current therapy Ludmilabrennan Casarez HRA, CV Assess/Plan, Angina (inactive) Management Plan schedule PCI Dora Armstrong HRA, CV Assess/Plan, Angina (inactive) Management Plan continue current therapy Marc Díaz HRA, CV Assess/Plan, Angina (inactive) Management Plan continue current therapy Marc Díaz HRA, CV Assess/Plan, Angina (inactive) Management Plan continue current therapy Shade Arrington MD HRA, CV Assess/Plan, Angina (inactive) Management Plan continue current therapy Juanpablo Reinoso MD MENTAL STATUS Date Observation Value Provider assessment of judgme nt and insight E&M Alert and oriented to time, place and person. Mood and affect are normal. Juanpablo Reinoso MD assessment of judgme nt and insight E&M Alert and oriented to time, place and person. Mood and affect are normal. Austyn Sanchez RN assessment of judgme nt and insight E&M Alert and oriented to time, place and person. Mood and affect are normal. Austyn Sanchez RN assessment of judgme nt and insight E&M Alert and oriented to time, place and person. Mood and affect are normal. Austyn Sanchez RN assessment of judgme nt and insight E&M Alert and oriented to time, place and person. Mood and affect are normal. Austyn Sanchez RN assessment of judgme nt and insight E&M Alert and oriented to time, place and person. Mood and affect are normal. Austyn Sanchez RN assessment of judgme nt and insight E&M Alert and oriented to time, place and person. Mood and affect are normal. Austyn Sanchez RN assessment of judgme nt and insight E&M Alert and oriented to time, place and person. Mood and affect are normal. Austyn Sanchez RN assessment of judgme nt and insight E&M Alert and oriented to time, place and person. Mood and affect are normal. Austyn Sanchez RN assessment of judgme nt and insight E&M Alert and oriented to time, place and person. Mood and affect are normal. Genoveva Gutierrez MD assessment of judgme nt and insight E&M Alert and oriented to time, place and person. Mood and affect are normal. Austyn Sanchez RN assessment of judgme nt and insight E&M Alert and oriented to time, place and person. Mood and affect are normal. Juanpablo Reinoso MD assessment of judgme nt and insight E&M Alert and oriented to time, place and person. Mood and affect are normal. Austyn Sanchez RN assessment of judgme nt and insight E&M Alert and oriented to time, place and person. Mood and affect are normal. Austyn Sanchez RN assessment of judgme nt and insight E&M Alert and oriented to time, place and person. Mood and affect are normal. Austyn Sanchez RN assessment of judgme nt and insight E&M Alert and oriented to time, place and person. Mood and affect are normal. Austyn Sanchez RN assessment of judgme nt and insight E&M Alert and oriented to time, place and person. Mood and affect are normal. Austyn Sanchez RN assessment of judgme nt and insight E&M Alert and oriented to time, place and person. Mood and affect are normal. Juanpablo Reinoso MD FAMILY HISTORY Family Member Condition Mother MS female <65 Mother Family History of Hy pertension: Mother Family History of Di abetes: Mother Family History of CV A or Stroke: Mother Family History of Ot her Medical Problems Father Family History of Ot her Medical Problems Father Family History of Co ronary Artery Disease: Father Family History of Hy pertension: Father Family History of Di abetes: Father Family History of CV A or Stroke: Mother Family History of Co ronary Artery Disease: INSURANCE PROVIDERS Payer name Policy type / Coverage type [place] red republican ID [facility] COMPLETE CARE [id number] (PPO C-SNP) 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 Take 1 tablet by mouth every day Metoprolol Succinate 25 Mg Tablet Extended Release 24 Hr (Metoprolol succinate) ..... Take 1 tablet by mouth every day as directed Nitroglycerin 0.4 Mg Tablet, Sublingual (Nitroglycerin) ..... Place 1 tablet under tongue once a day Bryan Burnett [id number],S, B P today: 133/59 P rior BP: 144/70 (04/26/2023) Labs Reviewed: C reat: 1.21 (05/26/2023) C hol: 156 (01/30/2023) HDL: 44 (01/30/2023) LDL: 91 MG/DL (CALC) (01/30/2023) T (01/30/2023) Her updated medication list for this problem includes: Metoprolol Succinate 25 Mg Tablet Extended Release 24 Hr (Metoprolol succinate) ..... Take 1 tablet by mouth every day as directed Losartan 50 Mg Tablet (Losartan) ..... Take 1 tablet by mouth every day Lasix 40 Mg Tablet (Furosemide) ..... 1 tablet by mouth once a day Bryan Burnett [id number],S,P t has stable claudication. Severe infrapopliteal disease. Recommend medical management. Increase atorvastatin for better LDL control. Lp(a) 257. She would like to participate in the [facility] trial. Bryan Burnett [id number],S,P t has stable claudication. Severe infrapopliteal disease. Recommend medical management. Increase atorvastatin for better LDL control. Lp(a) 257. She would like to participate in the [facility] trial. Bryan Burnett [id number],S, Increase atorvastatin for better LDL control. Lp(a) 257. She would like to participate in the [facility] trial. H er updated medication list for this problem includes: Icosapent Ethyl 1 Gram Capsule (Icosapent ethyl) ..... Take 2 capsules by mouth twice a day Atorvastatin 40 Mg Tablet (Atorvastatin) ..... Take 1 tablet by mouth every night Ezetimibe 10 Mg Tablet (Ezetimibe) ..... Take 1 tablet by mouth at bedtime Bryan Burnett [id number],B, Raymond sanford MD [id number],C,570 Raymond gillis MD [id number],S,s he had mod MR with normal EF on last echo W ill do f/u echo at time of next visit Cleojones Delgadomicahramya [facility] [id number],W,s he reports RLE heaviness and pain she is s/p stenting and arthrectomy s he remains on medical management C oncern is for small dissection post stening given continued reports of rt thigh pain. w ill do venous doppler to r/o DVT. Will do arterial study to look for any suggestion of stenosis W ill also do CT angio of RLE. If dissection noted will benefit from covered stent Her updated medication list for this problem includes: Clopidogrel 75 Mg Tablet (Clopidogrel) ..... Take 1 tablet by mouth once a day Juanpablo Reinoso MD [id number],C,n o chest pain or SOB at this time C ontinue plavix, xarelto and statin Juanpablo Reinoso MD [id number],C,c hronic. She did have episode of bradyardia noted on ILR where HR dropped to 39bpm for 2 minutes while sleeping w ill monitor Juanpablo Reinoso MD [id number],S, T he following medications were removed from the medication list: Metformin 500 Mg Tablet (Metformin) ..... 1 tablet by mouth twice a day Her updated medication list for this problem includes: Lantus Solostar U-100 Insulin 100 Unit/ml (3 Ml) Insulin Pen (Insulin glargine) ..... Inject 22 unit once a day Losartan 50 Mg Tablet (Losartan) ..... Take 1 tablet by mouth every day Farxiga 10 Mg Tablet (Dapagliflozin) ..... Take 1 tablet by mouth every day Insulin Lispro 100 Unit/ml Insulin Pen (Insulin lispro) Levemir U-100 Insulin 100 Unit/ml Solution (Insulin detemir u-100) ..... Subcutaneously twice a day Cleo Pathak [facility] [id number],S, Cleo rhoades [facility] [id number],C,w ith reports of bilateral UE and LE neuropathy Cleojones Pathak [facility] [id number],C,B P 144/70 today W ill continue present medication regimen H er updated medication list for this problem includes: Metoprolol Succinate 25 Mg Tablet Extended Release 24 Hr (Metoprolol succinate) ..... Take 1 tablet by mouth every day as directed Losartan 50 Mg Tablet (Losartan) ..... Take 1 tablet by mouth every day Lasix 40 Mg Tablet (Furosemide) ..... 1 tablet by mouth once a day Cleojones Pathak [facility] [id number],S,s he had mod MR with normal EF on last echo W ill do f[facility] [id number],C,MOD Raymond gillis MD [id number],C,433 Raymond gillis MD [id number],C,G ETS INFUFSION u p to date on colon Raymond Guerra MD [id number],C,6.2 Raymond gillis MD [id number],C,46 Raymond kim MD [id number],B, Raymond sanford MD [id number],S,R CA STEMTS AMD MELENDEZ TO LAD OEPN IN 21 CX STNET Raymond Guerra MD [id number],S,NEG STANDIN V D Raymond Guerra MD [id number],S, Raymond sanford MD [id number],C, H er updated medication list for this problem includes: Ozempic 0.25 Mg Or 0.5 Mg(2 Mg/1.5 Ml) Pen Injector (Semaglutide) ..... Inject 1/2 mg subcutaneously once a week inject 0.25mg subcutaneously once weekly x4 weeks, then increase to 0.5mg subcutaneously weekly. reduces risk of major cv events Farxiga 10 Mg Tablet (Dapagliflozin) ..... Take 1 tablet by mouth every day Lantus Solostar U-100 Insulin 100 Unit/ml (3 Ml) Insulin Pen (Insulin glargine) ..... Inject 100 unit once a day Insulin Lispro 100 Unit/ml Insulin Pen (Insulin lispro) Metformin 500 Mg Tablet (Metformin) ..... 1 tablet by mouth twice a day Levemir U-100 Insulin 100 Unit/ml Solution (Insulin detemir u-100) ..... Subcutaneously twice a day Ludmila Casarez [id number],C, H er updated medication list for this problem includes: Icosapent Ethyl 1 Gram Capsule (Icosapent ethyl) ..... Take 2 capsules by mouth twice a day Ezetimibe 10 Mg Tablet (Ezetimibe) ..... Take 1 tablet by mouth at bedtime Atorvastatin 20 Mg Tablet (Atorvastatin) ..... Take 1 tablet by mouth every night Ludmila Casarez [id number],C, B P today: 142/63 P rior BP: 140/65 (11/25/2022) Labs Reviewed: C reat: 1.37 (09/25/2021) C hol: 142 (09/25/2021) HDL: 50 (09/25/2021) LDL: 75 MG/DL (CALC) (09/25/2021) T (09/25/2021) Her updated medication list for this problem includes: Metoprolol Succinate 25 Mg Tablet Extended Release 24 Hr (Metoprolol succinate) ..... Take 1 tablet by mouth every day as directed Lasix 40 Mg Tablet (Furosemide) ..... 1 tablet by mouth once a day Ludmila Casarez [id number],C, H er updated medication list for this problem includes: Nitroglycerin 0.4 Mg Tablet, Sublingual (Nitroglycerin) ..... Place 1 tablet under tongue once a day Metoprolol Succinate 25 Mg Tablet Extended Release 24 Hr (Metoprolol succinate) ..... Take 1 tablet by mouth every day as directed Brilinta 90 Mg Tablet (Ticagrelor) ..... Take 1 tablet (90 mg total) by mouth 2 (two) times a day Ludmilabrennan Houghbonita [id number],C,C omplaining of rest pain and numbness in both legs, worse on the right. Arterial duplex showed that there is severe tibial disease b/l and will plan AIF/intervention of the tibial arteries, starting on the right. Ludmila Leida [id number],C, H er updated medication list for this problem includes: Nitroglycerin 0.4 Mg Tablet, Sublingual (Nitroglycerin) ..... Place 1 tablet under tongue once a day Metoprolol Succinate 25 Mg Tablet Extended Release 24 Hr (Metoprolol succinate) ..... Take 1 tablet by mouth every day as directed Brilinta 90 Mg Tablet (Ticagrelor) ..... Take 1 tablet (90 mg total) by mouth 2 (two) times a day Ludmila Leida [id number],C, B P today: 140/65 P rior BP: 160/67 (08/10/2022) Labs Reviewed: C reat: 1.37 (09/25/2021) C hol: 142 (09/25/2021) HDL: 50 (09/25/2021) LDL: 75 MG/DL (CALC) (09/25/2021) T (09/25/2021) Her updated medication list for this problem includes: Metoprolol Succinate 25 Mg Tablet Extended Release 24 Hr (Metoprolol succinate) ..... Take 1 tablet by mouth every day as directed Lasix 40 Mg Tablet (Furosemide) ..... 1 tablet by mouth once a day Ludmila Casarez [id number],C, W eight loss advised Ludmila Casarez [id number],C, H er updated medication list for this problem includes: Ozempic 0.25 Mg Or 0.5 Mg(2 Mg/1.5 Ml) Pen Injector (Semaglutide) ..... Inject 1/2 mg subcutaneously once a week inject 0.25mg subcutaneously once weekly x4 weeks, then increase to 0.5mg subcutaneously weekly. reduces risk of major cv events Farxiga 10 Mg Tablet (Dapagliflozin) ..... Take 1 tablet by mouth every day Lantus Solostar U-100 Insulin 100 Unit/ml (3 Ml) Insulin Pen (Insulin glargine) ..... Inject 100 unit once a day Insulin Lispro 100 Unit/ml Insulin Pen (Insulin lispro) Metformin 500 Mg Tablet (Metformin) ..... 1 tablet by mouth twice a day Levemir U-100 Insulin 100 Unit/ml Solution (Insulin detemir u-100) ..... Subcutaneously twice a day Ludmila Leida [id number],C, H er updated medication list for this problem includes: Icosapent Ethyl 1 Gram Capsule (Icosapent ethyl) ..... Take 2 capsules by mouth twice a day Ezetimibe 10 Mg Tablet (Ezetimibe) ..... Take 1 tablet by mouth at bedtime Atorvastatin 20 Mg Tablet (Atorvastatin) ..... Take 1 tablet by mouth every night Ludmila Leida [id number],C,P t underwent successful intervention of the RLE , she now complains of severe pain in the right thigh and leg with numbness in the foot. Associated with swelling. Will obtain arterial duplex and venous duplex of the lower extremities and will decide on angiogram depnding on results. Ludmila Leida [id number],C,P t underwent successful intervention of the RLE , she now complains of severe pain in the right thigh and leg with numbness in the foot. Associated with swelling. Will obtain arterial duplex and venous duplex of the lower extremities and will decide on angiogram depnding on results. Ludmila Leida [id number],C,P t underwent successful intervention of the RLE , she now complains of severe pain in the right thigh and leg with numbness in the foot. Associated with swelling. Will obtain arterial duplex and venous duplex of the lower extremities and will decide on angiogram depnding on results. Ludmila Casarez [id number],C,. In addition, complaining of severe pain and sores in both legs, worse on the right foot. Will interrogate her ILR and Schedule AIF/intervention. Ludmila Casarez [id number],C, H er updated medication list for this problem includes: Icosapent Ethyl 1 Gram Capsule (Icosapent ethyl) ..... Take 2 capsules by mouth twice a day Ezetimibe 10 Mg Tablet (Ezetimibe) ..... Take 1 tablet by mouth at bedtime Atorvastatin 20 Mg Tablet (Atorvastatin) ..... Take 1 tablet by mouth every night Ludmila Casarez [id number],C, H er updated medication list for this problem includes: Farxiga 10 Mg Tablet (Dapagliflozin) ..... Take 1 tablet by mouth every day Ozempic 0.25 Mg Or 0.5 Mg(2 Mg/1.5 Ml) Pen Injector (Semaglutide) ..... Inject 0.25mg subcutaneously once weekly x4 weeks, then increase to 0.5mg subcutaneously weekly. reduces risk of major cv events Lantus Solostar U-100 Insulin 100 Unit/ml (3 Ml) Insulin Pen (Insulin glargine) ..... Inject 100 unit once a day Insulin Lispro 100 Unit/ml Insulin Pen (Insulin lispro) Metformin 500 Mg Tablet (Metformin) ..... 1 tablet by mouth twice a day Levemir U-100 Insulin 100 Unit/ml Solution (Insulin detemir u-100) ..... Subcutaneously twice a day Ludmila Casarez [id number],C,P t had a recent admission to [facility] for a true syncopal episode. THis is a true syncope. She was sitting at home, no warning signs, and all she remembers is waking up in the ambulance. No CP or palpitations. Will interrogate her ILR and Schedule AIF/intervention. Ludmila Casarez [id number],C, H er updated medication list for this problem includes: Metoprolol Succinate 25 Mg Tablet Extended Release 24 Hr (Metoprolol succinate) ..... Take 1 tablet by mouth every day as directed Lasix 40 Mg Tablet (Furosemide) ..... 1 tablet by mouth once a day Ludmila Houghbonita [id number],C,P t had a recent admission to [facility] for a true syncopal episode. THis is a true syncope. She was sitting at home, no warning signs, and all she remembers is waking up in the ambulance. No CP or palpitations. In addition, complaining of severe pain and sores in both legs, worse on the right foot. Will interrogate her ILR and Schedule AIF/intervention. Ludmilabrennan Houghbonita [id number],C, H er updated medication list for this problem includes: Lantus Solostar U-100 Insulin 100 Unit/ml (3 Ml) Insulin Pen (Insulin glargine) ..... Inject 100 unit once a day Insulin Lispro 100 Unit/ml Insulin Pen (Insulin lispro) Farxiga 10 Mg Tablet (Dapagliflozin) ..... Take 1 tablet by mouth every day.(reduces cardiovascular & heart failure hospitalizations) Ozempic 0.25 Mg Or 0.5 Mg(2 Mg/1.5 Ml) Pen Injector (Semaglutide) ..... Inject 0.25mg subcutaneously once weekly x4 weeks, then increase to 0.5mg subcutaneously weekly. reduces risk of major cv events Metformin 500 Mg Tablet (Metformin) ..... 1 tablet by mouth twice a day Levemir U-100 Insulin 100 Unit/ml Solution (Insulin detemir u-100) ..... Subcutaneously twice a day Ludmilabrennan Houghbonita [id number],C, H er updated medication list for this problem includes: Vascepa 1 Gram Capsule (Icosapent ethyl) ..... Take 2 capsules by mouth twice a day Ezetimibe 10 Mg Tablet (Ezetimibe) ..... Take 1 tablet by mouth at bedtime Atorvastatin 20 Mg Tablet (Atorvastatin) ..... Take 1 tablet by mouth every night Ludmila [facility] [id number],C, B P today: 110/60 P rior BP: 140/70 (10/17/2021) Labs Reviewed: C reat: 1.37 (09/25/2021) C hol: 142 (09/25/2021) HDL: 50 (09/25/2021) LDL: 75 MG/DL (CALC) (09/25/2021) T (09/25/2021) Her updated medication list for this problem includes: Metoprolol Succinate 25 Mg Tablet Extended Release 24 Hr (Metoprolol succinate) ..... Take 1 tablet by mouth once a day as directed Lasix 40 Mg Tablet (Furosemide) ..... 1 tablet by mouth once a day Ludmila [facility] [id number],C,L eg is well heled. C/O neuropathy. No CP. She wants to participate in [facility] trial. will obtain follow up echo. H er updated medication list for this problem includes: Metoprolol Succinate 25 Mg Tablet Extended Release 24 Hr (Metoprolol succinate) ..... Take 1 tablet by mouth once a day as directed Nitroglycerin 0.4 Mg Tablet, Sublingual (Nitroglycerin) ..... Tablet under tongue once a day Brilinta 90 Mg Tablet (Ticagrelor) ..... Take 1 tablet (90 mg total) by mouth 2 (two) times a day Ludmila [facility] [id number],C,L eg is well heled. C/O neuropathy. No CP. Ludmila [facility] [id number],SLudmila [facility] [id number],S,H ad AIF with esqueda 10/10/21 S evere left lower extremity PAD involving the popliteal and the anterior tibial. The popliteal was treated mostly with drug-eluting balloon and no stent with adequate result and the anterior tibial was treated with atherectomy and angioplasty with an adequate result. Remain on brilinta and xarelto she is not on plavix N eeds to follow up with podiatry to see if there's any improvement for her left foot Ania Ramirez MD [id number],W,N eeds to get earlier revasculartization done, will try to get her scheduled with Benny. She needs to continue with her current meds until see. High risk of amputation of L great toe. Ania Ramirez MD [id number],C,P t had a recent hospital visit 3 days after a falll. Pt had been taking a bath, felt suddenly like something was wrong and stood to get out of the bath and passed out. Pt feels well today, denies any CP or SOB. Ludmila Leida [id number],C,P t had a recent hospital visit 3 days after a falll. Pt had been taking a bath, felt suddenly like something was wrong and stood to get out of the bath and passed out. Pt feels well today, denies any CP or SOB. Pt continues to have pain in her left leg big toe. Has redness to her left great toe and left fifth toe and open area to posterior left great toe. Willl schedule her an AIF. Her updated medication list for this problem includes: Metoprolol Succinate 25 Mg Tablet Extended Release 24 Hr (Metoprolol succinate) ..... Take 1 tablet by mouth once a day as directed Nitroglycerin 0.4 Mg Tablet, Sublingual (Nitroglycerin) ..... Tablet under tongue once a day Brilinta 90 Mg Tablet (Ticagrelor) ..... Take 1 tablet (90 mg total) by mouth 2 (two) times a day Ludmila Leida [id number],C, B P today: 146/60 P rior BP: 158/78 (07/02/2021) Labs Reviewed: C reat: 1.13 (07/12/2021) C hol: 137 (07/12/2021) HDL: 35 (07/12/2021) LDL: 69 MG/DL (CALC) (07/12/2021) T (07/12/2021) Her updated medication list for this problem includes: Metoprolol Succinate 25 Mg Tablet Extended Release 24 Hr (Metoprolol succinate) ..... Take 1 tablet by mouth once a day as directed Lasix 40 Mg Tablet (Furosemide) ..... 1 tablet by mouth once a day Ludmila Leida [id number],C,Weight loss a dvised Ludmila Leida [id number],C, H er updated medication list for this problem includes: Vascepa 1 Gram Capsule (Icosapent ethyl) ..... Take 2 capsules by mouth twice daily Atorvastatin 20 Mg Tablet (Atorvastatin) ..... Take 1 tablet by mouth every night Zetia 10 Mg Tablet (Ezetimibe) ..... 1 tablet by mouth once a day Ludmila Leida [id number],C, H er updated medication list for this problem includes: Ozempic 0.25 Mg Or 0.5 Mg(2 Mg/1.5 Ml) Pen Injector (Semaglutide) ..... Inject 0.25mg subcutaneously once weekly x4 weeks, then increase to 0.5mg subcutaneously weekly. reduces risk of major cv events Metformin 500 Mg Tablet (Metformin) ..... 1 tablet by mouth twice a day Farxiga 10 Mg Tablet (Dapagliflozin) ..... 1 tablet by mouth once a day Levemir U-100 Insulin 100 Unit/ml Solution (Insulin detemir u-100) ..... Subcutaneously twice a day Ludmila Leida [id number],C,. Pt continues to have pain in her left leg big toe. Has redness to her left great toe and left fifth toe and open area to posterior left great toe. Willl schedule her an AIF. Ludmila Leida [id number],C,P t had a recent hospital visit 3 days after a falll. Pt had been taking a bath, felt suddenly like something was wrong and stood to get out of the bath and passed out. Pt feels well today, denies any CP or SOB. Ludmila Casarez [id number],C, H er updated medication list for this problem includes: Ozempic 0.25 Mg Or 0.5 Mg(2 Mg/1.5 Ml) Pen Injector (Semaglutide) ..... Inject 0.25mg subcutaneously once weekly x4 weeks, then increase to 0.5mg subcutaneously weekly. reduces risk of major cv events Metformin 500 Mg Tablet (Metformin) ..... 1 tablet by mouth twice a day Farxiga 10 Mg Tablet (Dapagliflozin) ..... 1 tablet by mouth once a day Levemir U-100 Insulin 100 Unit/ml Solution (Insulin detemir u-100) ..... Subcutaneously twice a day [facility] [id number],C, H er updated medication list for this problem includes: Atorvastatin 20 Mg Tablet (Atorvastatin) ..... Take 1 tablet by mouth every night Zetia 10 Mg Tablet (Ezetimibe) ..... 1 tablet by mouth once a day Vascepa 1 Gram Capsule (Icosapent ethyl) ..... 2 capsule by mouth twice a day [facility] [id number],C, B P today: 158/78 P rior BP: 185/-1 (06/04/2021) Labs Reviewed: C reat: 1.29 (05/07/2021) C hol: 211 (12/09/2020) HDL: 48 (12/09/2020) LDL: 134 MG/DL (CALC) (12/09/2020) T (12/09/2020) Her updated medication list for this problem includes: Metoprolol Succinate 25 Mg Tablet Extended Release 24 Hr (Metoprolol succinate) ..... Take 1 tablet by mouth once a day as directed Lasix 40 Mg Tablet (Furosemide) ..... 1 tablet by mouth once a day Ludmila Casarez [id number],[facility] [id number],C,N o CP H er updated medication list for this problem includes: Metoprolol Succinate 25 Mg Tablet Extended Release 24 Hr (Metoprolol succinate) ..... Take 1 tablet by mouth once a day as directed Nitroglycerin 0.4 Mg Tablet, Sublingual (Nitroglycerin) ..... Tablet under tongue once a day Brilinta 90 Mg Tablet (Ticagrelor) ..... Take 1 tablet (90 mg total) by mouth 2 (two) times a day Ludmila Casarez [id number],S, N o recurrence H er updated medication list for this problem includes: Aspirin 325 Mg Tablet,delayed Release (dr/ec) (Aspirin) ..... 1 tablet by mouth once a day Metoprolol Succinate 25 Mg Tablet Extended Release 24 Hr (Metoprolol succinate) ..... Take 1 tablet by mouth once a day as directed Nitroglycerin 0.4 Mg Tablet, Sublingual (Nitroglycerin) ..... Tablet under tongue once a day Brilinta 90 Mg Tablet (Ticagrelor) ..... Take 1 tablet (90 mg total) by mouth 2 (two) times a day Ludmila Casarez [id number],C,A rterial duplex revealed that the left SFA/popliteal is patent. The left AT is occluded, however the pt reports good healing of the sores of the left foot, no intervention is needed now. She has significant stenosis of the right SFA/pop. Will schedule an AIF intervention for the right leg. She meets the MICHEL criteria and would like to join the study. Ludmila Casarez [id number],B, N o recurrence. S/p ILR implantation. Her updated medication list for this problem includes: Nitroglycerin 0.4 Mg Tablet Sl (Nitroglycerin) ..... Please see attached for detailed directions Metoprolol Succinate Er 50 Mg Oral Tablet Extended Release 24 Hour (Metoprolol succinate) ..... Take once a day Plavix 75 Mg Oral Tablet (Clopidogrel bisulfate) ..... Qd Aspirin Adult Low Dose 81 Mg Oral Tablet Delayed Release (Aspirin) ..... One tab by mouth daily David Maynor [id number],S, H er updated medication list for this problem includes: Atorvastatin 20 Mg Tablet (Atorvastatin) ..... Take 1 tablet by mouth every night Zetia 10 Mg Tablet (Ezetimibe) ..... 1 tablet by mouth once a day Vascepa 1 Gram Capsule (Icosapent ethyl) ..... 2 capsule by mouth twice a day David Dominguezazam [id number],W, B P today: 185/85 P rior BP: 118/66 (04/28/2021) The following medications were removed from the medication list: Aspirin 325 Mg Tablet,delayed Release (dr/ec) (Aspirin) ..... 1 tablet by mouth once a day Her updated medication list for this problem includes: Metoprolol Succinate 25 Mg Tablet Extended Release 24 Hr (Metoprolol succinate) ..... Take 1 tablet by mouth once a day as directed Lasix 40 Mg Tablet (Furosemide) ..... 1 tablet by mouth once a day David Dominguezazam [id number],S, S uccessful intervention of the left politeal and AT artery. 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 Last week she saw the tannery gummer and at the time healing was not improved yet. We will check arterial duplex and start xarelto 2.5mg BID. David Maynor [id number],S, S he c/o pain in the left ribcage. Very sensitive to touch and movement. Does not resemble her typical angina. Will obtain CXR with ribs series. Will treat the pain with percocet. The following medications were removed from the medication list: Aspirin 325 Mg Tablet,delayed Release (dr/ec) (Aspirin) ..... 1 tablet by mouth once a day Her updated medication list for this problem includes: Metoprolol Succinate 25 Mg Tablet Extended Release 24 Hr (Metoprolol succinate) ..... Take 1 tablet by mouth once a day as directed Nitroglycerin 0.4 Mg Tablet, Sublingual (Nitroglycerin) ..... Tablet under tongue once a day Brilinta 90 Mg Tablet (Ticagrelor) ..... Take 1 tablet (90 mg total) by mouth 2 (two) times a day David Maynor [id number],C, H er updated medication list for this problem includes: Aspirin 325 Mg Tablet,delayed Release (dr/ec) (Aspirin) ..... 1 tablet by mouth once a day Metformin 500 Mg Tablet (Metformin) ..... 1 tablet by mouth twice a day Farxiga 10 Mg Tablet (Dapagliflozin) ..... 1 tablet by mouth once a day Ozempic 0.25 Mg Or 0.5 Mg(2 Mg/1.5 Ml) Pen Injector (Semaglutide) ..... Subcutaneously once a day Levemir U-100 Insulin 100 Unit/ml Solution (Insulin detemir u-100) ..... Subcutaneously twice a day Ludmila Casarez [id number],C, H er updated medication list for this problem includes: Atorvastatin 20 Mg Tablet (Atorvastatin) ..... Take 1 tablet by mouth every night Zetia 10 Mg Tablet (Ezetimibe) ..... 1 tablet by mouth once a day Vascepa 1 Gram Capsule (Icosapent ethyl) ..... 2 capsule by mouth twice a day Ludmila Casarez [id number],S, B P today: 118/66 P rior BP: 102/70 (03/05/2021) Labs Reviewed: C reat: 1.13 (12/09/2020) C hol: 211 (12/09/2020) HDL: 48 (12/09/2020) LDL: 134 MG/DL (CALC) (12/09/2020) T (12/09/2020) Her updated medication list for this problem includes: Aspirin 325 Mg Tablet,delayed Release (dr/ec) (Aspirin) ..... 1 tablet by mouth once a day Metoprolol Succinate 25 Mg Tablet Extended Release 24 Hr (Metoprolol succinate) ..... Take 1 tablet by mouth once a day as directed Lasix 40 Mg Tablet (Furosemide) ..... 1 tablet by mouth once a day Ludmila Casarez [id number],S,N o recurrence H er updated medication list for this problem includes: Aspirin 325 Mg Tablet,delayed Release (dr/ec) (Aspirin) ..... 1 tablet by mouth once a day Metoprolol Succinate 25 Mg Tablet Extended Release 24 Hr (Metoprolol succinate) ..... Take 1 tablet by mouth once a day as directed Nitroglycerin 0.4 Mg Tablet, Sublingual (Nitroglycerin) ..... Tablet under tongue once a day Brilinta 90 Mg Tablet (Ticagrelor) ..... Take 1 tablet (90 mg total) by mouth 2 (two) times a day Ludmila Leida [id number],S,Kay joiner CP H er updated medication list for this problem includes: Aspirin 325 Mg Tablet,delayed Release (dr/ec) (Aspirin) ..... 1 tablet by mouth once a day Metoprolol Succinate 25 Mg Tablet Extended Release 24 Hr (Metoprolol succinate) ..... Take 1 tablet by mouth once a day as directed Nitroglycerin 0.4 Mg Tablet, Sublingual (Nitroglycerin) ..... Tablet under tongue once a day Brilinta 90 Mg Tablet (Ticagrelor) ..... Take 1 tablet (90 mg total) by mouth 2 (two) times a day Ludmila Leida [id number],C,T he pt has a non-healing ulcer on the fifth toe, left leg. On exam, both femoral pulses are palpable. I cannot palpate the left popliteal, the right popliteal is palpable. I cannot palpate the tibial arteries. Will schedule arterial duplex. Ludmila Leida [id number],C, Her updated medication list for this problem includes: Metformin 500 Mg Tablet (Metformin) ..... 1 tablet by mouth twice a day Farxiga 10 Mg Tablet (Dapagliflozin) ..... 1 tablet by mouth once a day Ozempic 0.25 Mg Or 0.5 Mg(2 Mg/1.5 Ml) Pen Injector (Semaglutide) ..... Subcutaneously once a day Aspirin 81 Mg Tablet,delayed Release (dr/ec) (Aspirin) ..... 1 tablet by mouth once a day Levemir U-100 Insulin 100 Unit/ml Solution (Insulin detemir u-100) ..... Subcutaneously twice a day Ludmila Casarez [id number],C,O n statin, Vascepa, and Zetia. H er updated medication list for this problem includes: Atorvastatin 80 Mg Tablet (Atorvastatin) ..... Take 1 tablet by mouth every night Zetia 10 Mg Tablet (Ezetimibe) ..... 1 tablet by mouth once a day Vascepa 1 Gram Capsule (Icosapent ethyl) ..... 2 capsule by mouth twice a day Ludmila Lopezausten [id number],C, B P today: 102/70 P rior BP: 120/62 (01/21/2021) Labs Reviewed: C reat: 1.13 (12/09/2020) C hol: 211 (12/09/2020) HDL: 48 (12/09/2020) LDL: 134 MG/DL (CALC) (12/09/2020) T (12/09/2020) The following medications were removed from the medication list: Metoprolol Succinate 25 Mg Tablet Extended Release 24 Hr (Metoprolol succinate) ..... Take tablet by mouth once a day Diovan 40 Mg Tablet (Valsartan) ..... Tablet by mouth Her updated medication list for this problem includes: Metoprolol Succinate 25 Mg Tablet Extended Release 24 Hr (Metoprolol succinate) ..... Take 1 tablet by mouth once a day as directed Lasix 40 Mg Tablet (Furosemide) ..... 1 tablet by mouth once a day Aspirin 81 Mg Tablet,delayed Release (dr/ec) (Aspirin) ..... 1 tablet by mouth once a day Ludmila Lopezausten [id number],N,S /P successful implantation of loop recorder. Incision is well healed. No further episodes. However, she has episodes of dizziness when she stands up. Will reduce Metoprolol to 25 mg daily. Ludmila Houghbonita [id number],B, B P today: 120/62 P rior BP: 150/88 (12/09/2020) Labs Reviewed: C reat: 1.13 (12/09/2020) C hol: 211 (12/09/2020) HDL: 48 (12/09/2020) LDL: 134 MG/DL (CALC) (12/09/2020) T (12/09/2020) The following medications were removed from the medication list: Diltiazem Hcl Er 180 Mg Oral Capsule Extended Release 24 Hour (Diltiazem hcl) ..... Take once a day Her updated medication list for this problem includes: Diovan 40 Mg Oral Tablet (Valsartan) Metoprolol Succinate Er 50 Mg Oral Tablet Extended Release 24 Hour (Metoprolol succinate) ..... Take once a day Aspirin Adult Low Dose 81 Mg Oral Tablet Delayed Release (Aspirin) ..... One tab by mouth daily Lasix 40 Mg Oral Tablet (Furosemide) ..... One tab twice daily Ludmila Casarez [id number],C,C HOL: 211 (12/09/2020) LDL: 134 MG/DL (CALC) (12/09/2020) HDL: 48 (12/09/2020) T (12/09/2020) Her updated medication list for this problem includes: Vascepa 1 Gm Oral Capsule (Icosapent ethyl) ..... 2 capsules by mouth twice daily universal coupon code: bin# [id number], pcn# [id number], grp# [id number], id# [id number] Zetia 10 Mg Oral Tablet (Ezetimibe) ..... One tab. daily Atorvastatin Calcium 80 Mg Oral Tablet (Atorvastatin calcium) ..... Take one tablet daily at bedtime Ludmila Casarez [id number],S, Ludmila arthurazausten [id number],C,C ontinues to have angina, relieved by nitro and Xanax. Will monitor pain, cardiac cath will be done if it persists. H er updated medication list for this problem includes: Nitroglycerin 0.4 Mg Tablet Sl (Nitroglycerin) ..... Please see attached for detailed directions Metoprolol Succinate Er 50 Mg Oral Tablet Extended Release 24 Hour (Metoprolol succinate) ..... Take once a day Plavix 75 Mg Oral Tablet (Clopidogrel bisulfate) ..... Qd Aspirin Adult Low Dose 81 Mg Oral Tablet Delayed Release (Aspirin) ..... One tab by mouth daily Ludmila Houghbonita [id number],C,P t had a recent admission to [facility] due to a true syncope episode (injured including breaking the left forearm). In view of angina, performed cardiac cath and stented the LCX/OM. The pt is still having episodes of chest pain, relieved by Xanax. Still using nitro. Complains of 'fluttering'. In addition, she was told that during her colonoscopy she had 'stopping of the heart'. However, this is not well documented. Will proceed to implantation of a loop recorder in view of her syncope and palpitations (recent event monitor was non-diagnostic). If chest pain persists, we may need to perform cardiac cath. Her Diltiazem was recently stopped. H er updated medication list for this problem includes: Nitroglycerin 0.4 Mg Tablet Sl (Nitroglycerin) ..... Please see attached for detailed directions Metoprolol Succinate Er 50 Mg Oral Tablet Extended Release 24 Hour (Metoprolol succinate) ..... Take once a day Plavix 75 Mg Oral Tablet (Clopidogrel bisulfate) ..... Qd Aspirin Adult Low Dose 81 Mg Oral Tablet Delayed Release (Aspirin) ..... One tab by mouth daily Ludmilabrennan Houghbonita Cardiology: recently developed angina requiring admin of nitro. will consider cardiac cath after pacemaker implantation. had abn myoview earlier this year. Gema Priscilla Cardiology: was brenden ding and abruptly fell. She does not recall if she LOC. was told by a bystander she did have LOC. ILR revealed abrupt rate drop with sinus bradycardia rate of 30(2 seconds pause).In view of sick sinus syndrome will stop metorpolopl and schedule dual chamber impalnt(at the time of pacemaker implant will remopve ILR). Gema Wells Cardiology:In view o f headaches wiull obtain head CT Gema Wells Cardiology: B P today: 152/54 P rior BP: 145/69 (02/21/2024) Labs Reviewed: C reat: 1.21 (05/26/2023) C hol: 156 (01/30/2023) HDL: 44 (01/30/2023) LDL: 91 MG/DL (CALC) (01/30/2023) T (01/30/2023) The following medications were removed from the medication list: Metoprolol Succinate 25 Mg Tablet Extended Release 24 Hr (Metoprolol succinate) ..... Take 1 tablet by mouth every day as directed Her updated medication list for this problem includes: Losartan 100 Mg Tablet (Losartan) ..... Take 1 tablet by mouth every day Furosemide 40 Mg Tablet (Furosemide) ..... Take 1 tablet by mouth every day This visit has been a part of the consistent, comprehensive, and ongoing management of the chronic medical condition(s) listed above for the patient. Gema Priscilla Cardiology: H er updated medication list for this problem includes: Losartan 100 Mg Tablet (Losartan) ..... Take 1 tablet by mouth every day Ozempic 0.25 Mg Or 0.5 Mg (2 Mg/3 Ml) Pen Injector (Semaglutide) ..... Inject 0.25mg subcutaneously once weekly x4 weeks then 0.5mg weekly. reduces risk of major cv events Farxiga 10 Mg Tablet (Dapagliflozin propanediol) ..... Take 1 tablet by mouth every day Lantus Solostar U-100 Insulin 100 Unit/ml (3 Ml) Insulin Pen (Insulin glargine) ..... Inject 22 unit once a day Insulin Lispro 100 Unit/ml Insulin Pen (Insulin lispro) Levemir U-100 Insulin 100 Unit/ml Solution (Insulin detemir u-100) ..... Subcutaneously twice a day Gema Priscilla Cardiology: H er updated medication list for this problem includes: Vascepa 1 Gram Capsule (Icosapent ethyl) ..... Take 2 capsules by mouth twice a day Atorvastatin 40 Mg Tablet (Atorvastatin) ..... Take 1 tablet by mouth every day at night Ezetimibe 10 Mg Tablet (Ezetimibe) ..... Take 1 tablet by mouth at bedtime This visit has been a part of the consistent, comprehensive, and ongoing management of the chronic medical condition(s) listed above for the patient. Gema Priscilla Cardiology Gema Wells Cardiology:CHF class II Gema Cabello ciarra Cardiology:Pt recent ly underwent successful stenting of the Right distal SFA. reports improvement of sx. 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 We will obtain arterial duplex to assess SFA result, Since she has leg pain. Gema Priscilla Cardiology:Discussio n of benefits for remote patient monitoring took place. Patient gives consent for remote monitoring of physiologic parameters including, but not limited to, weight, blood pressure, pulse oximetry, respiratory flow rate. B P today: 145/69 P rior BP: 146/55 (10/25/2023) Her updated medication list for this problem includes: Losartan 50 Mg Tablet (Losartan) ..... Take 1 tablet by mouth every day Metoprolol Succinate 25 Mg Tablet Extended Release 24 Hr (Metoprolol succinate) ..... Take 1 tablet by mouth every day as directed Lasix 40 Mg Tablet (Furosemide) ..... 1 tablet by mouth once a day This visit has been a part of the consistent, comprehensive, and ongoing management of the chronic medical condition(s) listed above for the patient. Gema Priscilla Cardiology: H er updated medication list for this problem includes: Atorvastatin 40 Mg Tablet (Atorvastatin) ..... Take 1 tablet by mouth every day at night Vascepa 1 Gram Capsule (Icosapent ethyl) ..... Take 2 capsules by mouth twice a day Ezetimibe 10 Mg Tablet (Ezetimibe) ..... Take 1 tablet by mouth at bedtime This visit has been a part of the consistent, comprehensive, and ongoing management of the chronic medical condition(s) listed above for the patient. Gema Priscilla Cardiology: H er updated medication list for this problem includes: Atorvastatin 40 Mg Tablet (Atorvastatin) ..... Take 1 tablet by mouth every day at night Vascepa 1 Gram Capsule (Icosapent ethyl) ..... Take 2 capsules by mouth twice a day Ezetimibe 10 Mg Tablet (Ezetimibe) ..... Take 1 tablet by mouth at bedtime Gema Wells Cardiology Gema Wells Cardiology:Pt recent ly underwent successful stenting of the Right distal SFA. reports improvement of sx. 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 We will obtain arterial duplex to assess SFA result, Since she has leg pain. Gema Wells Cardiology: H er updated medication list for this problem includes: Farxiga 10 Mg Tablet (Dapagliflozin propanediol) ..... Take 1 tablet by mouth every day Losartan 50 Mg Tablet (Losartan) ..... Take 1 tablet by mouth every day Ozempic 0.25 Mg Or 0.5 Mg (2 Mg/3 Ml) Pen Injector (Semaglutide) ..... Inject 0.25mg subcutaneously once weekly x4 weeks then 0.5mg weekly. reduces risk of major cv events Lantus Solostar U-100 Insulin 100 Unit/ml (3 Ml) Insulin Pen (Insulin glargine) ..... Inject 22 unit once a day Insulin Lispro 100 Unit/ml Insulin Pen (Insulin lispro) Levemir U-100 Insulin 100 Unit/ml Solution (Insulin detemir u-100) ..... 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 Take 2 capsules by mouth twice a day Atorvastatin 80 Mg Tablet (Atorvastatin) ..... Take 1 tablet by mouth every night Ezetimibe 10 Mg Tablet (Ezetimibe) ..... Take 1 tablet by mouth at bedtime Cleojones Dickmiglia [facility] Cardiology:last EF n ormal w ill continue to follow Cleo Ventimiglia [facility] Cardiology:no chest pain or SOB c ontinue present med reimgn Cleojones Dickmiglia [facility] Cardiology:Arterial duplex showed signifiacnt stenosis of right SFA and bilateral infrapopliteal disease. 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 She had angioplasty of right SFA/popliteal artery 01/2023. She now has a non healing sore in right great toe. Bryan Lex Cardiology:Myoview scan inferior ischemia. [facility] Cardiology: H er updated medication list for this problem includes: Icosapent Ethyl 1 Gram Capsule (Icosapent ethyl) ..... Take 2 capsules by mouth twice a day Atorvastatin 80 Mg Tablet (Atorvastatin) ..... Take 1 tablet by mouth every night Ezetimibe 10 Mg Tablet (Ezetimibe) ..... Take 1 tablet by mouth at bedtime [facility] Cardiology [facility] Cardiology:Also pt r eports a fall about 2 weeks ago and since then she has headaches and blurred vision. WIll obtain CT of the head. [facility] Cardiology:Arterial duplex showed signifiacnt stenosis of right SFA and bilateral infrapopliteal disease. 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 She had angioplasty of right SFA/popliteal artery 01/2023. She now has a non healing sore in right great toe. We will schedule AIF with possible intervention. Myoview scan inferior ischemia. Also pt reports a fall about 2 weeks ago and since then she has headaches and blurred vision. WIll obtain CT of the head. She resumed her BP pills. [facility] Cardiology:She also complains of worsening pain and cold sensation in right leg, weakness in RLE, [facility] Cardiology: H er updated medication list for this problem includes: Icosapent Ethyl 1 Gram Capsule (Icosapent ethyl) ..... Take 2 capsules by mouth twice a day Atorvastatin 80 Mg Tablet (Atorvastatin) ..... Take 1 tablet by mouth every night Ezetimibe 10 Mg Tablet (Ezetimibe) ..... Take 1 tablet by mouth at bedtime [facility] Cardiology: B P today: 122/58 P rior BP: 133/59 (05/31/2023) Labs Reviewed: C reat: 1.21 (05/26/2023) C hol: 156 (01/30/2023) HDL: 44 (01/30/2023) LDL: 91 MG/DL (CALC) (01/30/2023) T (01/30/2023) The following medications were removed from the medication list: Losartan 50 Mg Tablet (Losartan) ..... Take 1 tablet by mouth every day Her updated medication list for this problem includes: Metoprolol Succinate 25 Mg Tablet Extended Release 24 Hr (Metoprolol succinate) ..... Take 1 tablet by mouth every day as directed Lasix 40 Mg Tablet (Furosemide) ..... 1 tablet by mouth once a day Bryan Burnett Cardiology: Will betsy edule echo, carotid duplex, regadenoson, and arterial duplex. H er updated medication list for this problem includes: Nitroglycerin 0.4 Mg Tablet, Sublingual (Nitroglycerin) ..... Place 1 tablet under tongue once a day Clopidogrel 75 Mg Tablet (Clopidogrel) ..... Take 1 tablet by mouth every day Metoprolol Succinate 25 Mg Tablet Extended Release 24 Hr (Metoprolol succinate) ..... Take 1 tablet by mouth every day as directed Bryan Burnett Cardiology:She also complains of worsening pain and cold sensation in right leg, weakness in RLE, and dizziness upon standing up. We will hold losartan. Bryan Burnett Cardiology:Pt compla ins of extreme fatigue. She states she cannot sleep well becuase her , who is impaired, keeps her awake. She will start 5mg Ambien. Bryan Burnett Cardiology: H er updated medication list for this problem includes: Clopidogrel 75 Mg Tablet (Clopidogrel) ..... Take 1 tablet by mouth every day Metoprolol Succinate 25 Mg Tablet Extended Release 24 Hr (Metoprolol succinate) ..... Take 1 tablet by mouth every day as directed Nitroglycerin 0.4 Mg Tablet, Sublingual (Nitroglycerin) ..... Place 1 tablet under tongue once a day Bryan Burnett Cardiology: B P today: 133/59 P rior BP: 144/70 (04/26/2023) Labs Reviewed: C reat: 1.21 (05/26/2023) C hol: 156 (01/30/2023) HDL: 44 (01/30/2023) LDL: 91 MG/DL (CALC) (01/30/2023) T (01/30/2023) Her updated medication list for this problem includes: Metoprolol Succinate 25 Mg Tablet Extended Release 24 Hr (Metoprolol succinate) ..... Take 1 tablet by mouth every day as directed Losartan 50 Mg Tablet (Losartan) ..... Take 1 tablet by mouth every day Lasix 40 Mg Tablet (Furosemide) ..... 1 tablet by mouth once a day Bryan Clemonsinari Cardiology:Pt has st able claudication. Severe infrapopliteal disease. Recommend medical management. Increase atorvastatin for better LDL control. Lp(a) 257. She would like to participate in the [facility] trial. Bryan Clemonsinari Cardiology:Pt has st able claudication. Severe infrapopliteal disease. Recommend medical management. Increase atorvastatin for better LDL control. Lp(a) 257. She would like to participate in the [facility] trial. Bryan Lex Cardiology: Increase atorvastatin for better LDL control. Lp(a) 257. She would like to participate in the [facility] trial. H er updated medication list for this problem includes: Icosapent Ethyl 1 Gram Capsule (Icosapent ethyl) ..... Take 2 capsules by mouth twice a day Atorvastatin 40 Mg Tablet (Atorvastatin) ..... Take 1 tablet by mouth every night Ezetimibe 10 Mg Tablet (Ezetimibe) ..... Take 1 tablet by mouth at bedtime Bryan Burnett Raymond Guerra MD :570 Raymond Guerra MD Cardiology:she had m od MR with normal EF on last echo W ill do f/u echo at time of next visit Cleo Pathak [employer] Cardiology:she repor ts RLE heaviness and pain she is s/p stenting and arthrectomy s he remains on medical management C oncern is for small dissection post stening given continued reports of rt thigh pain. w ill do venous doppler to r/o DVT. Will do arterial study to look for any suggestion of stenosis W ill also do CT angio of RLE. If dissection noted will benefit from covered stent Her updated medication list for this problem includes: Clopidogrel 75 Mg Tablet (Clopidogrel) ..... Take 1 tablet by mouth once a day Cleojones Pathak [facility] Cardiology:no chest pain or SOB at this time C ontinue plavix, xarelto and statin Juanpablo Reinoso MD Cardiology:chronic. She did have episode of bradyardia noted on ILR where HR dropped to 39bpm for 2 minutes while sleeping w ill monitor Juanpablo Reinoso MD Cardiology: T he following medications were removed from the medication list: Metformin 500 Mg Tablet (Metformin) ..... 1 tablet by mouth twice a day Her updated medication list for this problem includes: Lantus Solostar U-100 Insulin 100 Unit/ml (3 Ml) Insulin Pen (Insulin glargine) ..... Inject 22 unit once a day Losartan 50 Mg Tablet (Losartan) ..... Take 1 tablet by mouth every day Farxiga 10 Mg Tablet (Dapagliflozin) ..... Take 1 tablet by mouth every day Insulin Lispro 100 Unit/ml Insulin Pen (Insulin lispro) Levemir U-100 Insulin 100 Unit/ml Solution (Insulin detemir u-100) ..... Subcutaneously twice a day Cleojones Dickmiglramya [facility] Cardiology Alligator Kapilmigl ia [facility] Cardiology:with repo rts of bilateral UE and LE neuropathy Alligator Sandyglramya [facility] Cardiology:BP 144/70 today W ill continue present medication regimen H er updated medication list for this problem includes: Metoprolol Succinate 25 Mg Tablet Extended Release 24 Hr (Metoprolol succinate) ..... Take 1 tablet by mouth every day as directed Losartan 50 Mg Tablet (Losartan) ..... Take 1 tablet by mouth every day Lasix 40 Mg Tablet (Furosemide) ..... 1 tablet by mouth once a day Cleo Pathak [facility] Cardiology:she had m od MR with normal EF on last echo W ill do f/u echo Cleo Pathak [facility] Cardiology:MOD Raymond Guerra MD Cardiology:433 Raymond Guerra MD Cardiology:GETS INFU FSION u p to date on colon Raymond Guerra MD Cardiology:6.2 Raymond Guerra MD Cardiology:46 Raymond Guerra MD Cardiology Raymond Guerra MD Cardiology:RCA STEMT S AMD MELENDEZ TO LAD OEPN IN 21 CX STNET Raymond Guerra MD Cardiology:NEG STANDIN VD Raymond Guerra MD Cardiology Raymond Guerra MD Cardiology: H er updated medication list for this problem includes: Ozempic 0.25 Mg Or 0.5 Mg(2 Mg/1.5 Ml) Pen Injector (Semaglutide) ..... Inject 1/2 mg subcutaneously once a week inject 0.25mg subcutaneously once weekly x4 weeks, then increase to 0.5mg subcutaneously weekly. reduces risk of major cv events Farxiga 10 Mg Tablet (Dapagliflozin) ..... Take 1 tablet by mouth every day Lantus Solostar U-100 Insulin 100 Unit/ml (3 Ml) Insulin Pen (Insulin glargine) ..... Inject 100 unit once a day Insulin Lispro 100 Unit/ml Insulin Pen (Insulin lispro) Metformin 500 Mg Tablet (Metformin) ..... 1 tablet by mouth twice a day Levemir U-100 Insulin 100 Unit/ml Solution (Insulin detemir u-100) ..... Subcutaneously twice a day Ludmila Casarez Cardiology: H er updated medication list for this problem includes: Icosapent Ethyl 1 Gram Capsule (Icosapent ethyl) ..... Take 2 capsules by mouth twice a day Ezetimibe 10 Mg Tablet (Ezetimibe) ..... Take 1 tablet by mouth at bedtime Atorvastatin 20 Mg Tablet (Atorvastatin) ..... Take 1 tablet by mouth every night Ludmila Lopezausten Cardiology: B P today: 142/63 P rior BP: 140/65 (11/25/2022) Labs Reviewed: C reat: 1.37 (09/25/2021) C hol: 142 (09/25/2021) HDL: 50 (09/25/2021) LDL: 75 MG/DL (CALC) (09/25/2021) T (09/25/2021) Her updated medication list for this problem includes: Metoprolol Succinate 25 Mg Tablet Extended Release 24 Hr (Metoprolol succinate) ..... Take 1 tablet by mouth every day as directed Lasix 40 Mg Tablet (Furosemide) ..... 1 tablet by mouth once a day Ludmila Houghbonita Cardiology: H er updated medication list for this problem includes: Nitroglycerin 0.4 Mg Tablet, Sublingual (Nitroglycerin) ..... Place 1 tablet under tongue once a day Metoprolol Succinate 25 Mg Tablet Extended Release 24 Hr (Metoprolol succinate) ..... Take 1 tablet by mouth every day as directed Brilinta 90 Mg Tablet (Ticagrelor) ..... Take 1 tablet (90 mg total) by mouth 2 (two) times a day Ludmila Houghbonita Cardiology:Complaini ng of rest pain and numbness in both legs, worse on the right. Arterial duplex showed that there is severe tibial disease b/l and will plan AIF/intervention of the tibial arteries, starting on the right. Ludmilabrennan Houghbonita Cardiology: H er updated medication list for this problem includes: Nitroglycerin 0.4 Mg Tablet, Sublingual (Nitroglycerin) ..... Place 1 tablet under tongue once a day Metoprolol Succinate 25 Mg Tablet Extended Release 24 Hr (Metoprolol succinate) ..... Take 1 tablet by mouth every day as directed Brilinta 90 Mg Tablet (Ticagrelor) ..... Take 1 tablet (90 mg total) by mouth 2 (two) times a day Ludmila Jacobsbonita Cardiology: B P today: 140/65 P rior BP: 160/67 (08/10/2022) Labs Reviewed: C reat: 1.37 (09/25/2021) C hol: 142 (09/25/2021) HDL: 50 (09/25/2021) LDL: 75 MG/DL (CALC) (09/25/2021) T (09/25/2021) Her updated medication list for this problem includes: Metoprolol Succinate 25 Mg Tablet Extended Release 24 Hr (Metoprolol succinate) ..... Take 1 tablet by mouth every day as directed Lasix 40 Mg Tablet (Furosemide) ..... 1 tablet by mouth once a day Ludmila Casarez Cardiology: W eight loss advised Ludmila Casarez Cardiology: H er updated medication list for this problem includes: Ozempic 0.25 Mg Or 0.5 Mg(2 Mg/1.5 Ml) Pen Injector (Semaglutide) ..... Inject 1/2 mg subcutaneously once a week inject 0.25mg subcutaneously once weekly x4 weeks, then increase to 0.5mg subcutaneously weekly. reduces risk of major cv events Farxiga 10 Mg Tablet (Dapagliflozin) ..... Take 1 tablet by mouth every day Lantus Solostar U-100 Insulin 100 Unit/ml (3 Ml) Insulin Pen (Insulin glargine) ..... Inject 100 unit once a day Insulin Lispro 100 Unit/ml Insulin Pen (Insulin lispro) Metformin 500 Mg Tablet (Metformin) ..... 1 tablet by mouth twice a day Levemir U-100 Insulin 100 Unit/ml Solution (Insulin detemir u-100) ..... Subcutaneously twice a day Ludmila Casarez Cardiology: H er updated medication list for this problem includes: Icosapent Ethyl 1 Gram Capsule (Icosapent ethyl) ..... Take 2 capsules by mouth twice a day Ezetimibe 10 Mg Tablet (Ezetimibe) ..... Take 1 tablet by mouth at bedtime Atorvastatin 20 Mg Tablet (Atorvastatin) ..... Take 1 tablet by mouth every night Ludmila Casarez Cardiology:Pt underw ent successful intervention of the RLE , she now complains of severe pain in the right thigh and leg with numbness in the foot. Associated with swelling. Will obtain arterial duplex and venous duplex of the lower extremities and will decide on angiogram depnding on results. Ludmila Houghbonita Cardiology:Pt underw ent successful intervention of the RLE , she now complains of severe pain in the right thigh and leg with numbness in the foot. Associated with swelling. Will obtain arterial duplex and venous duplex of the lower extremities and will decide on angiogram depnding on results. Ludmila Houghbonita Cardiology:Pt underw ent successful intervention of the RLE , she now complains of severe pain in the right thigh and leg with numbness in the foot. Associated with swelling. Will obtain arterial duplex and venous duplex of the lower extremities and will decide on angiogram depnding on results. Ludmila Leida Cardiology:. In dago tion, complaining of severe pain and sores in both legs, worse on the right foot. Will interrogate her ILR and Schedule AIF/intervention. Ludmila Leida Cardiology: H er updated medication list for this problem includes: Icosapent Ethyl 1 Gram Capsule (Icosapent ethyl) ..... Take 2 capsules by mouth twice a day Ezetimibe 10 Mg Tablet (Ezetimibe) ..... Take 1 tablet by mouth at bedtime Atorvastatin 20 Mg Tablet (Atorvastatin) ..... Take 1 tablet by mouth every night Ludmila Leida Cardiology: H er updated medication list for this problem includes: Farxiga 10 Mg Tablet (Dapagliflozin) ..... Take 1 tablet by mouth every day Ozempic 0.25 Mg Or 0.5 Mg(2 Mg/1.5 Ml) Pen Injector (Semaglutide) ..... Inject 0.25mg subcutaneously once weekly x4 weeks, then increase to 0.5mg subcutaneously weekly. reduces risk of major cv events Lantus Solostar U-100 Insulin 100 Unit/ml (3 Ml) Insulin Pen (Insulin glargine) ..... Inject 100 unit once a day Insulin Lispro 100 Unit/ml Insulin Pen (Insulin lispro) Metformin 500 Mg Tablet (Metformin) ..... 1 tablet by mouth twice a day Levemir U-100 Insulin 100 Unit/ml Solution (Insulin detemir u-100) ..... Subcutaneously twice a day Ludmila Casarez Cardiology:Pt had a recent admission to [facility] for a true syncopal episode. THis is a true syncope. She was sitting at home, no warning signs, and all she remembers is waking up in the ambulance. No CP or palpitations. Will interrogate her ILR and Schedule AIF/intervention. Ludmila Houghbonita Cardiology: H er updated medication list for this problem includes: Metoprolol Succinate 25 Mg Tablet Extended Release 24 Hr (Metoprolol succinate) ..... Take 1 tablet by mouth every day as directed Lasix 40 Mg Tablet (Furosemide) ..... 1 tablet by mouth once a day Ludmila Lopezausten Cardiology:Pt had a recent admission to [facility] for a true syncopal episode. THis is a true syncope. She was sitting at home, no warning signs, and all she remembers is waking up in the ambulance. No CP or palpitations. In addition, complaining of severe pain and sores in both legs, worse on the right foot. Will interrogate her ILR and Schedule AIF/intervention. Ludmila Houghbonita Cardiology: H er updated medication list for this problem includes: Lantus Solostar U-100 Insulin 100 Unit/ml (3 Ml) Insulin Pen (Insulin glargine) ..... Inject 100 unit once a day Insulin Lispro 100 Unit/ml Insulin Pen (Insulin lispro) Farxiga 10 Mg Tablet (Dapagliflozin) ..... Take 1 tablet by mouth every day.(reduces cardiovascular & heart failure hospitalizations) Ozempic 0.25 Mg Or 0.5 Mg(2 Mg/1.5 Ml) Pen Injector (Semaglutide) ..... Inject 0.25mg subcutaneously once weekly x4 weeks, then increase to 0.5mg subcutaneously weekly. reduces risk of major cv events Metformin 500 Mg Tablet (Metformin) ..... 1 tablet by mouth twice a day Levemir U-100 Insulin 100 Unit/ml Solution (Insulin detemir u-100) ..... Subcutaneously twice a day Ludmila Casarez Cardiology: H er updated medication list for this problem includes: Vascepa 1 Gram Capsule (Icosapent ethyl) ..... Take 2 capsules by mouth twice a day Ezetimibe 10 Mg Tablet (Ezetimibe) ..... Take 1 tablet by mouth at bedtime Atorvastatin 20 Mg Tablet (Atorvastatin) ..... Take 1 tablet by mouth every night Ludmila Casarez Cardiology: B P today: 110/60 P rior BP: 140/70 (10/17/2021) Labs Reviewed: C reat: 1.37 (09/25/2021) C hol: 142 (09/25/2021) HDL: 50 (09/25/2021) LDL: 75 MG/DL (CALC) (09/25/2021) T (09/25/2021) Her updated medication list for this problem includes: Metoprolol Succinate 25 Mg Tablet Extended Release 24 Hr (Metoprolol succinate) ..... Take 1 tablet by mouth once a day as directed Lasix 40 Mg Tablet (Furosemide) ..... 1 tablet by mouth once a day Ludmila Casarez Cardiology:Leg is we ll heled. C/O neuropathy. No CP. She wants to participate in Zu[facility] trial. will obtain follow up echo. H er updated medication list for this problem includes: Metoprolol Succinate 25 Mg Tablet Extended Release 24 Hr (Metoprolol succinate) ..... Take 1 tablet by mouth once a day as directed Nitroglycerin 0.4 Mg Tablet, Sublingual (Nitroglycerin) ..... Tablet under tongue once a day Brilinta 90 Mg Tablet (Ticagrelor) ..... Take 1 tablet (90 mg total) by mouth 2 (two) times a day Ludmila Casarez Cardiology:Leg is we ll heled. C/O neuropathy. No CP. Ludmila Casarez Cardiology Ludmila Wheat eyer Cardiology:Had AIF w ith esqueda 10/10/21 S evere left lower extremity PAD involving the popliteal and the anterior tibial. The popliteal was treated mostly with drug-eluting balloon and no stent with adequate result and the anterior tibial was treated with atherectomy and angioplasty with an adequate result. Remain on brilinta and xarelto she is not on plavix N eeds to follow up with podiatry to see if there's any improvement for her left foot Ania Ramirez MD Cardiology:Needs to get earlier revasculartization done, will try to get her scheduled with [facility]. She needs to continue with her current meds until see. High risk of amputation of L great toe. Ania Ramirez MD Cardiology:Pt had a recent hospital visit 3 days after a falll. Pt had been taking a bath, felt suddenly like something was wrong and stood to get out of the bath and passed out. Pt feels well today, denies any CP or SOB. Ludmila Casarez Cardiology:Pt had a recent hospital visit 3 days after a falll. Pt had been taking a bath, felt suddenly like something was wrong and stood to get out of the bath and passed out. Pt feels well today, denies any CP or SOB. Pt continues to have pain in her left leg big toe. Has redness to her left great toe and left fifth toe and open area to posterior left great toe. Willl schedule her an AIF. Her updated medication list for this problem includes: Metoprolol Succinate 25 Mg Tablet Extended Release 24 Hr (Metoprolol succinate) ..... Take 1 tablet by mouth once a day as directed Nitroglycerin 0.4 Mg Tablet, Sublingual (Nitroglycerin) ..... Tablet under tongue once a day Brilinta 90 Mg Tablet (Ticagrelor) ..... Take 1 tablet (90 mg total) by mouth 2 (two) times a day Ludmila Casarez Cardiology: B P today: 146/60 P rior BP: 158/78 (07/02/2021) Labs Reviewed: C reat: 1.13 (07/12/2021) C hol: 137 (07/12/2021) HDL: 35 (07/12/2021) LDL: 69 MG/DL (CALC) (07/12/2021) T (07/12/2021) Her updated medication list for this problem includes: Metoprolol Succinate 25 Mg Tablet Extended Release 24 Hr (Metoprolol succinate) ..... Take 1 tablet by mouth once a day as directed Lasix 40 Mg Tablet (Furosemide) ..... 1 tablet by mouth once a day Ludmila Casarez Cardiology:Weight loss advised B goldy Casarez Cardiology: H er updated medication list for this problem includes: Vascepa 1 Gram Capsule (Icosapent ethyl) ..... Take 2 capsules by mouth twice daily Atorvastatin 20 Mg Tablet (Atorvastatin) ..... Take 1 tablet by mouth every night Zetia 10 Mg Tablet (Ezetimibe) ..... 1 tablet by mouth once a day Ludmila Casarez Cardiology: H er updated medication list for this problem includes: Ozempic 0.25 Mg Or 0.5 Mg(2 Mg/1.5 Ml) Pen Injector (Semaglutide) ..... Inject 0.25mg subcutaneously once weekly x4 weeks, then increase to 0.5mg subcutaneously weekly. reduces risk of major cv events Metformin 500 Mg Tablet (Metformin) ..... 1 tablet by mouth twice a day Farxiga 10 Mg Tablet (Dapagliflozin) ..... 1 tablet by mouth once a day Levemir U-100 Insulin 100 Unit/ml Solution (Insulin detemir u-100) ..... Subcutaneously twice a day Ludmila Casarez Cardiology:. Pt cont inues to have pain in her left leg big toe. Has redness to her left great toe and left fifth toe and open area to posterior left great toe. Willl schedule her an AIF. Ludmila Casarez Cardiology:Pt had a recent hospital visit 3 days after a falll. Pt had been taking a bath, felt suddenly like something was wrong and stood to get out of the bath and passed out. Pt feels well today, denies any CP or SOB. Ludmila Casarez Cardiology: H er updated medication list for this problem includes: Ozempic 0.25 Mg Or 0.5 Mg(2 Mg/1.5 Ml) Pen Injector (Semaglutide) ..... Inject 0.25mg subcutaneously once weekly x4 weeks, then increase to 0.5mg subcutaneously weekly. reduces risk of major cv events Metformin 500 Mg Tablet (Metformin) ..... 1 tablet by mouth twice a day Farxiga 10 Mg Tablet (Dapagliflozin) ..... 1 tablet by mouth once a day Levemir U-100 Insulin 100 Unit/ml Solution (Insulin detemir u-100) ..... Subcutaneously twice a day Ludmila Casarez Cardiology: H er updated medication list for this problem includes: Atorvastatin 20 Mg Tablet (Atorvastatin) ..... Take 1 tablet by mouth every night Zetia 10 Mg Tablet (Ezetimibe) ..... 1 tablet by mouth once a day Vascepa 1 Gram Capsule (Icosapent ethyl) ..... 2 capsule by mouth twice a day Ludmila Casarez Cardiology: B P today: 158/78 P rior BP: 185/-1 (06/04/2021) Labs Reviewed: C reat: 1.29 (05/07/2021) C hol: 211 (12/09/2020) HDL: 48 (12/09/2020) LDL: 134 MG/DL (CALC) (12/09/2020) T (12/09/2020) Her updated medication list for this problem includes: Metoprolol Succinate 25 Mg Tablet Extended Release 24 Hr (Metoprolol succinate) ..... Take 1 tablet by mouth once a day as directed Lasix 40 Mg Tablet (Furosemide) ..... 1 tablet by mouth once a day Ludmila Casarez Cardiology Ludmila Wheat eyer Cardiology:No CP H er updated medication list for this problem includes: Metoprolol Succinate 25 Mg Tablet Extended Release 24 Hr (Metoprolol succinate) ..... Take 1 tablet by mouth once a day as directed Nitroglycerin 0.4 Mg Tablet, Sublingual (Nitroglycerin) ..... Tablet under tongue once a day Brilinta 90 Mg Tablet (Ticagrelor) ..... Take 1 tablet (90 mg total) by mouth 2 (two) times a day Ludmila Casarez Cardiology: N o recurrence H er updated medication list for this problem includes: Aspirin 325 Mg Tablet,delayed Release (dr/ec) (Aspirin) ..... 1 tablet by mouth once a day Metoprolol Succinate 25 Mg Tablet Extended Release 24 Hr (Metoprolol succinate) ..... Take 1 tablet by mouth once a day as directed Nitroglycerin 0.4 Mg Tablet, Sublingual (Nitroglycerin) ..... Tablet under tongue once a day Brilinta 90 Mg Tablet (Ticagrelor) ..... Take 1 tablet (90 mg total) by mouth 2 (two) times a day Ludmila Casarez Cardiology:Arterial duplex revealed that the left SFA/popliteal is patent. The left AT is occluded, however the pt reports good healing of the sores of the left foot, no intervention is needed now. She has significant stenosis of the right SFA/pop. Will schedule an AIF intervention for the right leg. She meets the MICHEL criteria and would like to join the study. Ludmila Casarez Cardiology: N o recurrence. S/p ILR implantation. Her updated medication list for this problem includes: Nitroglycerin 0.4 Mg Tablet Sl (Nitroglycerin) ..... Please see attached for detailed directions Metoprolol Succinate Er 50 Mg Oral Tablet Extended Release 24 Hour (Metoprolol succinate) ..... Take once a day Plavix 75 Mg Oral Tablet (Clopidogrel bisulfate) ..... Qd Aspirin Adult Low Dose 81 Mg Oral Tablet Delayed Release (Aspirin) ..... One tab by mouth daily David Mcguire Cardiology: H er updated medication list for this problem includes: Atorvastatin 20 Mg Tablet (Atorvastatin) ..... Take 1 tablet by mouth every night Zetia 10 Mg Tablet (Ezetimibe) ..... 1 tablet by mouth once a day Vascepa 1 Gram Capsule (Icosapent ethyl) ..... 2 capsule by mouth twice a day David Mcguire Cardiology: B P today: 185/85 P rior BP: 118/66 (04/28/2021) The following medications were removed from the medication list: Aspirin 325 Mg Tablet,delayed Release (dr/ec) (Aspirin) ..... 1 tablet by mouth once a day Her updated medication list for this problem includes: Metoprolol Succinate 25 Mg Tablet Extended Release 24 Hr (Metoprolol succinate) ..... Take 1 tablet by mouth once a day as directed Lasix 40 Mg Tablet (Furosemide) ..... 1 tablet by mouth once a day David Maynor Cardiology: S uccessful intervention of the left politeal and AT artery. 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 Last week she saw the tannery gummer and at the time healing was not improved yet. We will check arterial duplex and start xarelto 2.5mg BID. David Maynor Cardiology: S he c/o pain in the left ribcage. Very sensitive to touch and movement. Does not resemble her typical angina. Will obtain CXR with ribs series. Will treat the pain with percocet. The following medications were removed from the medication list: Aspirin 325 Mg Tablet,delayed Release (dr/ec) (Aspirin) ..... 1 tablet by mouth once a day Her updated medication list for this problem includes: Metoprolol Succinate 25 Mg Tablet Extended Release 24 Hr (Metoprolol succinate) ..... Take 1 tablet by mouth once a day as directed Nitroglycerin 0.4 Mg Tablet, Sublingual (Nitroglycerin) ..... Tablet under tongue once a day Brilinta 90 Mg Tablet (Ticagrelor) ..... Take 1 tablet (90 mg total) by mouth 2 (two) times a day David Maynor Cardiology follow up : H er updated medication list for this problem includes: Aspirin 325 Mg Tablet,delayed Release (dr/ec) (Aspirin) ..... 1 tablet by mouth once a day Metformin 500 Mg Tablet (Metformin) ..... 1 tablet by mouth twice a day Farxiga 10 Mg Tablet (Dapagliflozin) ..... 1 tablet by mouth once a day Ozempic 0.25 Mg Or 0.5 Mg(2 Mg/1.5 Ml) Pen Injector (Semaglutide) ..... Subcutaneously once a day Levemir U-100 Insulin 100 Unit/ml Solution (Insulin detemir u-100) ..... Subcutaneously twice a day Ludmila Casarez Cardiology follow up : H er updated medication list for this problem includes: Atorvastatin 20 Mg Tablet (Atorvastatin) ..... Take 1 tablet by mouth every night Zetia 10 Mg Tablet (Ezetimibe) ..... 1 tablet by mouth once a day Vascepa 1 Gram Capsule (Icosapent ethyl) ..... 2 capsule by mouth twice a day Ludmila Casarez Cardiology follow up : B P today: 118/66 P rior BP: 102/70 (03/05/2021) Labs Reviewed: C reat: 1.13 (12/09/2020) C hol: 211 (12/09/2020) HDL: 48 (12/09/2020) LDL: 134 MG/DL (CALC) (12/09/2020) T (12/09/2020) Her updated medication list for this problem includes: Aspirin 325 Mg Tablet,delayed Release (dr/ec) (Aspirin) ..... 1 tablet by mouth once a day Metoprolol Succinate 25 Mg Tablet Extended Release 24 Hr (Metoprolol succinate) ..... Take 1 tablet by mouth once a day as directed Lasix 40 Mg Tablet (Furosemide) ..... 1 tablet by mouth once a day Ludmila Casarez Cardiology follow up :No recurrence H er updated medication list for this problem includes: Aspirin 325 Mg Tablet,delayed Release (dr/ec) (Aspirin) ..... 1 tablet by mouth once a day Metoprolol Succinate 25 Mg Tablet Extended Release 24 Hr (Metoprolol succinate) ..... Take 1 tablet by mouth once a day as directed Nitroglycerin 0.4 Mg Tablet, Sublingual (Nitroglycerin) ..... Tablet under tongue once a day Brilinta 90 Mg Tablet (Ticagrelor) ..... Take 1 tablet (90 mg total) by mouth 2 (two) times a day Ludmila Casarez Cardiology follow up :Denies CP H er updated medication list for this problem includes: Aspirin 325 Mg Tablet,delayed Release (dr/ec) (Aspirin) ..... 1 tablet by mouth once a day Metoprolol Succinate 25 Mg Tablet Extended Release 24 Hr (Metoprolol succinate) ..... Take 1 tablet by mouth once a day as directed Nitroglycerin 0.4 Mg Tablet, Sublingual (Nitroglycerin) ..... Tablet under tongue once a day Brilinta 90 Mg Tablet (Ticagrelor) ..... Take 1 tablet (90 mg total) by mouth 2 (two) times a day Ludmila Leida Cardiology follow up :The pt has a non-healing ulcer on the fifth toe, left leg. On exam, both femoral pulses are palpable. I cannot palpate the left popliteal, the right popliteal is palpable. I cannot palpate the tibial arteries. Will schedule arterial duplex. Ludmila Leida Cardiology Follow up : Her updated medication list for this problem includes: Metformin 500 Mg Tablet (Metformin) ..... 1 tablet by mouth twice a day Farxiga 10 Mg Tablet (Dapagliflozin) ..... 1 tablet by mouth once a day Ozempic 0.25 Mg Or 0.5 Mg(2 Mg/1.5 Ml) Pen Injector (Semaglutide) ..... Subcutaneously once a day Aspirin 81 Mg Tablet,delayed Release (dr/ec) (Aspirin) ..... 1 tablet by mouth once a day Levemir U-100 Insulin 100 Unit/ml Solution (Insulin detemir u-100) ..... Subcutaneously twice a day Ludmila Casarez Cardiology Follow up :On statin, Vascepa, and Zetia. H er updated medication list for this problem includes: Atorvastatin 80 Mg Tablet (Atorvastatin) ..... Take 1 tablet by mouth every night Zetia 10 Mg Tablet (Ezetimibe) ..... 1 tablet by mouth once a day Vascepa 1 Gram Capsule (Icosapent ethyl) ..... 2 capsule by mouth twice a day Ludmila Casarez Cardiology Follow up : B P today: 102/70 P rior BP: 120/62 (01/21/2021) Labs Reviewed: C reat: 1.13 (12/09/2020) C hol: 211 (12/09/2020) HDL: 48 (12/09/2020) LDL: 134 MG/DL (CALC) (12/09/2020) T (12/09/2020) The following medications were removed from the medication list: Metoprolol Succinate 25 Mg Tablet Extended Release 24 Hr (Metoprolol succinate) ..... Take tablet by mouth once a day Diovan 40 Mg Tablet (Valsartan) ..... Tablet by mouth Her updated medication list for this problem includes: Metoprolol Succinate 25 Mg Tablet Extended Release 24 Hr (Metoprolol succinate) ..... Take 1 tablet by mouth once a day as directed Lasix 40 Mg Tablet (Furosemide) ..... 1 tablet by mouth once a day Aspirin 81 Mg Tablet,delayed Release (dr/ec) (Aspirin) ..... 1 tablet by mouth once a day Ludmila Casarez Cardiology Follow up :S/P successful implantation of loop recorder. Incision is well healed. No further episodes. However, she has episodes of dizziness when she stands up. Will reduce Metoprolol to 25 mg daily. Ludmila Casarez Cardiology: B P today: 120/62 P rior BP: 150/88 (12/09/2020) Labs Reviewed: C reat: 1.13 (12/09/2020) C hol: 211 (12/09/2020) HDL: 48 (12/09/2020) LDL: 134 MG/DL (CALC) (12/09/2020) T (12/09/2020) The following medications were removed from the medication list: Diltiazem Hcl Er 180 Mg Oral Capsule Extended Release 24 Hour (Diltiazem hcl) ..... Take once a day Her updated medication list for this problem includes: Diovan 40 Mg Oral Tablet (Valsartan) Metoprolol Succinate Er 50 Mg Oral Tablet Extended Release 24 Hour (Metoprolol succinate) ..... Take once a day Aspirin Adult Low Dose 81 Mg Oral Tablet Delayed Release (Aspirin) ..... One tab by mouth daily Lasix 40 Mg Oral Tablet (Furosemide) ..... One tab twice daily Ludmila Casarez Cardiology:CHOL: 211 (12/09/2020) LDL: 134 MG/DL (CALC) (12/09/2020) HDL: 48 (12/09/2020) T (12/09/2020) Her updated medication list for this problem includes: Vascepa 1 Gm Oral Capsule (Icosapent ethyl) ..... 2 capsules by mouth twice daily universal coupon code: bin# [id number], pcn# cn, grp# [email or web address], id# [id number] Zetia 10 Mg Oral Tablet (Ezetimibe) ..... One tab. daily Atorvastatin Calcium 80 Mg Oral Tablet (Atorvastatin calcium) ..... Take one tablet daily at bedtime Ludmila Casarez Cardiology Ludmila Wheat eyer Cardiology:Continues to have angina, relieved by nitro and Xanax. Will monitor pain, cardiac cath will be done if it persists. H er updated medication list for this problem includes: Nitroglycerin 0.4 Mg Tablet Sl (Nitroglycerin) ..... Please see attached for detailed directions Metoprolol Succinate Er 50 Mg Oral Tablet Extended Release 24 Hour (Metoprolol succinate) ..... Take once a day Plavix 75 Mg Oral Tablet (Clopidogrel bisulfate) ..... Qd Aspirin Adult Low Dose 81 Mg Oral Tablet Delayed Release (Aspirin) ..... One tab by mouth daily Ludmila Casarez Cardiology:Pt had a recent admission to [facility] due to a true syncope episode (injured including breaking the left forearm). In view of angina, performed cardiac cath and stented the LCX/OM. The pt is still having episodes of chest pain, relieved by Xanax. Still using nitro. Complains of 'fluttering'. In addition, she was told that during her colonoscopy she had 'stopping of the heart'. However, this is not well documented. Will proceed to implantation of a loop recorder in view of her syncope and palpitations (recent event monitor was non-diagnostic). If chest pain persists, we may need to perform cardiac cath. Her Diltiazem was recently stopped. H er updated medication list for this problem includes: Nitroglycerin 0.4 Mg Tablet Sl (Nitroglycerin) ..... Please see attached for detailed directions Metoprolol Succinate Er 50 Mg Oral Tablet Extended Release 24 Hour (Metoprolol succinate) ..... Take once a day Plavix 75 Mg Oral Tablet (Clopidogrel bisulfate) ..... Qd Aspirin Adult Low Dose 81 Mg Oral Tablet Delayed Release (Aspirin) ..... One tab by mouth daily Ludmila Casarez Cardiology:Her updat ed medication list for this problem includes: Vascepa 1 Gm Oral Capsule (Icosapent ethyl) ..... 2 capsules by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 Tl Soln (Nitroglycerin) ..... 1 spray every 5 minutes x 3 if no relief go emergency room. BP today: 117/58 Prior BP: 138/69 (10/01/2010) N uclear Stress Findings: 1. Regadenoson mediated myocardial perfusion study 2 . Mildly decreased left ventricular systolic function with a calculated ejection fraction of 50%. 3 . Myocardial scintigraphy demonstrates inferoapical and apical ischemia. (10/22/2010) C ardiac Cath: Statuspost CVG surgeyr with patent MELENDEZ to LAD. Total oclcusion of the LAD and RCA. Continued patency of the stents in the OM and left circumflex. Normal LV function EF 60%. Normal renal arteries. [facility] (11/05/2008) C ardiac Cath Comments: Successful stenting of the proximal 2.5x 15mm and mid RCA 2.5 x 15mm and angioplasty of the RV branch. [facility] (11/05/2008) H gb: 10.5 (10/26/2008) HCT: 35.5 (04/15/2009) Platelets: 358 THOUSAND/UL (04/15/2009) R BC: 4.23 MILLION/UL (04/15/2009) WBC: 4.02 (10/26/2008) B UN: 19 (04/15/2009) Creat: 0.92 (04/15/2009) Glucose: 227 (04/15/2009) N a+: 138 (04/15/2009) K+: 4.5 (04/15/2009) Cl: 99 (04/15/2009) PT: 10.0 (04/15/2009) INR: 1.0 (04/15/2009) Genoveva Gutierrez MD : T he following medications were removed from the medication list: Simvastatin 40 Mg Tabs (Simvastatin) ..... 1 tablet by mouth once daily Zetia 10 Mg Tabs (Ezetimibe) ..... One tab. daily Her updated medication list for this problem includes: Toprol Xl 100 Mg Tb24 (Metoprolol succinate) ..... One tab daily Plavix 75 Mg Tabs (Clopidogrel bisulfate) ..... Qd Aspirin 325 Mg Tabs (Aspirin) ..... One tab daily Diltiazem Hcl Cr 180 Mg [id number] (Diltiazem hcl) ..... Take once a day Lisinopril 40 Mg Tabs (Lisinopril) ..... One tab. daily Vytorin 10-40 Mg Tabs (Ezetimibe-simvastatin) ..... One tab. at bedtime Juanpablo Reinoso MD chestr pain: H er updated medication list for this problem includes: Aspirin 325 Mg Tabs (Aspirin) ..... One tab daily Lasix 40 Mg Tabs (Furosemide) ..... Qd Dilt-xr 180 Mg Cp24 (Diltiazem hcl) ..... One a day Lisinopril 40 Mg Tabs (Lisinopril) ..... One tab. daily BP today: 138/79 P rior BP: 118/54 (11/26/2008) Juanpablo Reinoso MD chestr pain: H er updated medication list for this problem includes: Plavix 75 Mg Tabs (Clopidogrel bisulfate) ..... Qd Simvastatin 40 Mg Tabs (Simvastatin) ..... 1 tablet by mouth once daily Aspirin 325 Mg Tabs (Aspirin) ..... One tab daily Dilt-xr 180 Mg Cp24 (Diltiazem hcl) ..... One a day Zetia 10 Mg Tabs (Ezetimibe) ..... One tab. daily Lisinopril 40 Mg Tabs (Lisinopril) ..... One tab. daily BP today: 138/79 Prior BP: 118/54 (11/26/2008) N uclear Stress Findings: 1. Adenosine mediated myocardial perfusion study 2 . Normal left ventricular systolic function with a calculated ejection fraction of 48%. 3 . No obvious significant scintigraphic evidence of myocardial ischemia or scar. [facility] (09/25/2008) C ardiac Cath: Statuspost CVG surgeyr with patent MELENDEZ to LAD. Total oclcusion of the LAD and RCA. Continued patency of the stents in the OM and left circumflex. Normal LV function EF 60%. Normal renal arteries. [facility] (11/05/2008) C ardiac Cath Comments: Successful stenting of the proximal 2.5x 15mm and mid RCA 2.5 x 15mm and angioplasty of the RV branch. [facility] (11/05/2008) H gb: 10.5 (10/26/2008) HCT: 34.5 (10/26/2008) RBC: 10.5 (10/26/2008) WBC: 4.02 (10/26/2008) B UN: 18 (10/26/2008) Glucose: 134 (10/26/2008) N a+: 138 (10/26/2008) K+: 4.7 (10/26/2008) Cl: 105 (10/26/2008) O rders: E KG (CPT-04906) C ardiac Cath - PCL (*) Juanpablo Reinoso MD follow-up post stent : H er updated medication list for this problem includes: Plavix 75 Mg Tabs (Clopidogrel bisulfate) ..... Qd Simvastatin 40 Mg Tabs (Simvastatin) ..... 1 tablet by mouth once daily Aspirin 325 Mg Tabs (Aspirin) ..... One tab daily Dilt-xr 180 Mg Cp24 (Diltiazem hcl) ..... One a day Zetia 10 Mg Tabs (Ezetimibe) ..... One tab. daily Lisinopril 40 Mg Tabs (Lisinopril) ..... One tab. daily BP today: 118/54 Prior BP: 151/75 (10/22/2008) N uclear Stress Findings: 1. Adenosine mediated myocardial perfusion study 2 . Normal left ventricular systolic function with a calculated ejection fraction of 48%. 3 . No obvious significant scintigraphic evidence of myocardial ischemia or scar. [facility] (09/25/2008) C ardiac Cath: Statuspost CVG surgeyr with patent MELENDEZ to LAD. Total oclcusion of the LAD and RCA. Continued patency of the stents in the OM and left circumflex. Normal LV function EF 60%. Normal renal arteries. [facility] (11/05/2008) C ardiac Cath Comments: Successful stenting of the proximal 2.5x 15mm and mid RCA 2.5 x 15mm and angioplasty of the RV branch. [facility] (11/05/2008) H gb: 10.5 (10/26/2008) HCT: 34.5 (10/26/2008) RBC: 10.5 (10/26/2008) WBC: 4.02 (10/26/2008) B UN: 18 (10/26/2008) Glucose: 134 (10/26/2008) N a+: 138 (10/26/2008) K+: 4.7 (10/26/2008) Cl: 105 (10/26/2008) Juanpablo Reinoso MD follow-up post stent : H er updated medication list for this problem includes: Aspirin 325 Mg Tabs (Aspirin) ..... One tab daily Lasix 40 Mg Tabs (Furosemide) ..... Qd Dilt-xr 180 Mg Cp24 (Diltiazem hcl) ..... One a day Lisinopril 40 Mg Tabs (Lisinopril) ..... One tab. daily BP today: 118/54 P rior BP: 151/75 (10/22/2008) Juanpablo Reinoso MD post hospital: T he following medications were removed from the medication list: Nitrostat Subl (Nitroglycerin subl) Her updated medication list for this problem includes: Plavix 75 Mg Tabs (Clopidogrel bisulfate) ..... Qd Simvastatin 40 Mg Tabs (Simvastatin) ..... 1 tablet by mouth once daily Aspirin 325 Mg Tabs (Aspirin) ..... One tab daily Dilt-xr 180 Mg Cp24 (Diltiazem hcl) ..... One a day Zetia 10 Mg Tabs (Ezetimibe) ..... One tab. daily Lisinopril 40 Mg Tabs (Lisinopril) ..... One tab. daily BP today: 151/75 Prior BP: 151/95 (09/17/2008) N uclear Stress Findings: 1. Adenosine mediated myocardial perfusion study 2 . Normal left ventricular systolic function with a calculated ejection fraction of 48%. 3 . No obvious significant scintigraphic evidence of myocardial ischemia or scar. [facility] (09/25/2008) C ardiac Cath: No renal artery stenosis. % RCA stenosis: 100% occluded. % LAD stenosis: 100% occluded. C ircumflex is widely patent. L AMIE to LAD is patent. (09/06/2006) C ardiac Cath Comments: Successful stenting left circumflex and obtuse marginal branch with a 3.0 x 15mm Vision stent. (07/05/2006) Juanpablo Reinoso MD post hospital: H er updated medication list for this problem includes: Aspirin 325 Mg Tabs (Aspirin) ..... One tab daily Lasix 40 Mg Tabs (Furosemide) ..... Qd Dilt-xr 180 Mg Cp24 (Diltiazem hcl) ..... One a day Lisinopril 40 Mg Tabs (Lisinopril) ..... One tab. daily BP today: 151/75 P rior BP: 151/95 (09/17/2008) Juanpablo Reinoso MD post hospital: H er updated medication list for this problem includes: Aspirin 325 Mg Tabs (Aspirin) ..... One tab daily Lasix 40 Mg Tabs (Furosemide) ..... Qd Dilt-xr 180 Mg Cp24 (Diltiazem hcl) ..... One a day Lisinopril 40 Mg Tabs (Lisinopril) ..... One tab. daily BP today: 151/75 P rior BP: 151/95 (09/17/2008) Juanpablo Reinoso MD routine: O rders: A rterial Duplex Lower Extremity Bilateral (CPT-12757) V enous Doppler Bilateral LE (66558) Juanpablo Reinoso MD routine: H er updated medication list for this problem includes: Toprol Xl 50 Mg Tb24 (Metoprolol succinate) ..... 1 tablet by mouth once daily Plavix 75 Mg Tabs (Clopidogrel bisulfate) ..... Qd Aspirin 325 Mg Tabs (Aspirin) ..... One tab daily Nitrostat Subl (Nitroglycerin subl) Lisinopril 40 Mg Tabs (Lisinopril) ..... One tab. daily BP today: 151/95 Prior BP: 160/75 (07/30/2008) N uclear Stress Findings: Resting ECG poor R wave progression in V1 through V3, cannot rule out septal infarction, age undetermined. Normal sinus rhythm. No ST segment in the inferior or lateral leads to suggest ischemia. Apical ischemia. EF of 53%. (03/21/2008) C ardiac Cath: No renal artery stenosis. % RCA stenosis: 100% occluded. % LAD stenosis: 100% occluded. C ircumflex is widely patent. L AMIE to LAD is patent. (09/06/2006) C ardiac Cath Comments: Successful stenting left circumflex and obtuse marginal branch with a 3.0 x 15mm Vision stent. (07/05/2006) Orders: C omplete Echo (CPT-22507) Juanpablo Reinoso MD routine: H er updated medication list for this problem includes: Toprol Xl 50 Mg Tb24 (Metoprolol succinate) ..... 1 tablet by mouth once daily Plavix 75 Mg Tabs (Clopidogrel bisulfate) ..... Qd Simvastatin 40 Mg Tabs (Simvastatin) ..... 1 tablet by mouth once daily Aspirin 325 Mg Tabs (Aspirin) ..... One tab daily Nitrostat Subl (Nitroglycerin subl) Zetia 10 Mg Tabs (Ezetimibe) ..... One tab. daily Lisinopril 40 Mg Tabs (Lisinopril) ..... One tab. daily BP today: 151/95 Prior BP: 160/75 (07/30/2008) N uclear Stress Findings: Resting ECG poor R wave progression in V1 through V3, cannot rule out septal infarction, age undetermined. Normal sinus rhythm. No ST segment in the inferior or lateral leads to suggest ischemia. Apical ischemia. EF of 53%. (03/21/2008) C ardiac Cath: No renal artery stenosis. % RCA stenosis: 100% occluded. % LAD stenosis: 100% occluded. C ircumflex is widely patent. L AMIE to LAD is patent. (09/06/2006) C ardiac Cath Comments: Successful stenting left circumflex and obtuse marginal branch with a 3.0 x 15mm Vision stent. (07/05/2006) Juanpablo Reinoso MD routine: H er updated medication list for this problem includes: Plavix 75 Mg Tabs (Clopidogrel bisulfate) ..... Qd Simvastatin 40 Mg Tabs (Simvastatin) ..... 1 tablet by mouth once daily Aspirin 325 Mg Tabs (Aspirin) ..... One tab daily Nitrostat Subl (Nitroglycerin subl) Zetia 10 Mg Tabs (Ezetimibe) ..... One tab. daily Lisinopril 40 Mg Tabs (Lisinopril) ..... One tab. daily BP today: 151/95 Prior BP: 160/75 (07/30/2008) N uclear Stress Findings: Resting ECG poor R wave progression in V1 through V3, cannot rule out septal infarction, age undetermined. Normal sinus rhythm. No ST segment in the inferior or lateral leads to suggest ischemia. Apical ischemia. EF of 53%. (03/21/2008) C ardiac Cath: No renal artery stenosis. % RCA stenosis: 100% occluded. % LAD stenosis: 100% occluded. C ircumflex is widely patent. L AMIE to LAD is patent. (09/06/2006) C ardiac Cath Comments: Successful stenting left circumflex and obtuse marginal branch with a 3.0 x 15mm Vision stent. (07/05/2006) Orders: S tress Test - Adenosine (10875) C omplete Echo (CPT-95821) Juanpablo Reinoso MD weak : T he following medications were removed from the medication list: Tricor 145 Mg Tabs (Fenofibrate) ..... Qd Fosinopril Sodium 20 Mg Tabs (Fosinopril sodium) ..... Qd Her updated medication list for this problem includes: Plavix 75 Mg Tabs (Clopidogrel bisulfate) ..... Qd Toprol Xl 50 Mg Tb24 (Metoprolol succinate) ..... 1 daily Aspirin 325 Mg Tabs (Aspirin) ..... One tab daily Vytorin 10-40 Mg Tabs (Ezetimibe-simvastatin) ..... 1 daily Lisinopril 20 Mg Tabs (Lisinopril) ..... 2 daily Ranexa 1000 Mg Tb12 (Ranolazine) ..... One tab. twice daily C ardiac Cath: No renal artery stenosis. % RCA stenosis: 100% occluded. % LAD stenosis: 100% occluded. C ircumflex is widely patent. L AMIE to LAD is patent. (09/06/2006) Cardiac Cath Comments: Successful stenting left circumflex and obtuse marginal branch with a 3.0 x 15mm Vision stent. (07/05/2006) Juanpablo Reinoso MD weak : T he following medications were removed from the medication list: Fosinopril Sodium 20 Mg Tabs (Fosinopril sodium) ..... Qd Her updated medication list for this problem includes: Aspirin 325 Mg Tabs (Aspirin) ..... One tab daily Metformin Hcl 500 Mg Tabs (Metformin hcl) ..... Qd Glipizide 10 Mg Tabs (Glipizide) ..... Qd Avandia 4 Mg Tabs (Rosiglitazone maleate) ..... One tab. daily Lisinopril 20 Mg Tabs (Lisinopril) ..... 2 daily Juanpablo Reinoso MD weak : T he following medications were removed from the medication list: Tricor 145 Mg Tabs (Fenofibrate) ..... Qd Her updated medication list for this problem includes: Vytorin 10-40 Mg Tabs (Ezetimibe-simvastatin) ..... 1 daily Juanpablo Reinoso MD Date Name PARTIAL THROMBOPLAST IN TIME, ACTIVATED URINALYSIS, COMPLETE W/REFLEX TO CULTURE COMPREHENSIVE METABO LIC PANEL W/EGFR PROTHROMBIN TIME WIT H INR CBC (INCLUDES DIFF/P LT) PARTIAL THROMBOPLAST IN TIME, ACTIVATED URINALYSIS, COMPLETE W/REFLEX TO CULTURE COMPREHENSIVE METABO LIC PANEL W/EGFR PROTHROMBIN TIME WIT H INR CBC (INCLUDES DIFF/P LT) CT Head without cont rast RPM (remote patient monitoring) Arterial Duplex Bi-L ower EX EKG Arterial - SENSILASE PROTHROMBIN TIME WIT H INR LIPID PANEL CBC (INCLUDES DIFF/P LT) BASIC METABOLIC PANE L W/EGFR RPM (remote patient monitoring) CT Head without cont rast Arterial Duplex Bi-L ower EX Carotid Duplex Bilat eral Stress Regadenoson Complete Echo CT Angio, lower extr emity Venous Doppler Bilat eral LE Arterial Duplex RLE CT Angio AIF (Abd, l ower extremities) RPR (MONITOR) W/REFL TITER VITAMIN B12 BASIC METABOLIC PANE L W/EGFR Complete Echo Lipoprotein (a) PROBNP, N TERMINAL RPM (remote patient monitoring) Arterial - SENSILASE Arterial Duplex Bi-L ower EX PROTHROMBIN TIME WIT H INR LIPID PANEL CBC (INCLUDES DIFF/P LT) BASIC METABOLIC PANE L W/EGFR Venous Doppler Bilat eral LE - Reflux Arterial Duplex Bi-L ower EX PROTHROMBIN TIME WIT H INR CBC (INCLUDES DIFF/P LT) BASIC METABOLIC PANE L W/EGFR PROTHROMBIN TIME WIT H INR LIPID PANEL CBC (INCLUDES DIFF/P LT) BASIC METABOLIC PANE L W/EGFR AIF Diagnostic - [facility] V Complete Echo RPM (remote patient monitoring) PROTHROMBIN TIME WIT H INR LIPID PANEL CBC (INCLUDES DIFF/P LT) BASIC METABOLIC PANE L W/EGFR AIF Intervention - S [facility] AIF Intervention - G C PROTHROMBIN TIME WIT H INR LIPID PANEL CBC (INCLUDES DIFF/P LT) BASIC METABOLIC PANE L W/EGFR X-Ray, Chest w/Ribs Arterial Duplex Bi-L ower EX C-REACTIVE PROTEIN ( CRP), HIGHLY SENSITIVE, CSF PROTHROMBIN TIME WIT H INR CBC (INCLUDES DIFF/P LT) BASIC METABOLIC PANE L W/EGFR Arterial Duplex Bi-L ower EX COVID19 Rapid POC COVID19 Rapid POC Loop Rec Implant - S [facility] Cardiac Cath - L/R- [facility] PROTHROMBIN TIME WIT H INR LIPID PANEL CBC (INCLUDES DIFF/P LT) BASIC METABOLIC PANE L W/EGFR TSH, free T4, total T3 Mobile Cardiac Tele IRON AND TOTAL IRON BINDING CAPACITY FERRITIN CBC (INCLUDES DIFF/P LT) HEMOGLOBIN A1c LIPID PANEL COVID19 nasal swab ( LC) Covid Antibody IgA ( LC) Covid Antibody IgM ( LC) Covid Antibody Igg IRON AND TOTAL IRON BINDING CAPACITY FERRITIN PROBNP, N TERMINAL PROTHROMBIN TIME WIT H INR LIPID PANEL CBC (INCLUDES DIFF/P LT) BASIC METABOLIC PANE L W/EGFR Cardiac Cath - L/R- [facility] Complete Echo Carotid Duplex Bilat eral Complete Echo STR - Adenosine Mobile Cardiac Tele Full PFT STR - Adenosine Complete Echo PROTHROMBIN TIME WIT H INR CBC (INCLUDES DIFF/P LT) BASIC METABOLIC PANE L W/EGFR Coronary Stent - [facility] Carotid Duplex Bilat eral Complete Echo Stress Test - Adenos ine Complete Echo PROTHROMBIN TIME WIT H INR CBC (H/H, RBC, INDIC ES, WBC, PLT) BASIC METABOLIC PANE L W/EGFR PROTHROMBIN TIME WIT H INR CBC (H/H, RBC, INDIC ES, WBC, PLT) BASIC METABOLIC PANE L W/EGFR Cardiac Cath - PCL Cardiac Cath - PCL Renal Artery Duplex Venous Doppler Bilat eral LE Arterial Duplex Lowe r Extremity Bilateral Complete Echo Stress Test - Adenos ine HISTORY OF PROCEDURES Procedure Date Procedure Name Provider Procedure Notes S tatus Complex e/m visit add on Juanpablo Reinoso MD completed Complex e/m visit add on Juanpablo Reinoso MD completed EKG Juanpablo Reinoso MD completed EKG Ania Ramirez MD completed SARS-CoV-2 (COVID-19) POC Juanpablo Reinsoo MD completed EKG Dayanna Beckett completed EKG Juanpablo Reinoso MD completed EKG Aina Ramirez MD completed EKG Juanpablo Reinoso MD completed Mobile Cardiac Telem etry - Tech Raymond Guerra MD completed Mobile Cardiac Telem etry - Prof Raymond Guerra MD completed Feraheme 510mg Juanpablo Reinoso MD comple guillermina Therapeutic IV Infus ion up to 1 hour Juanpablo Reinoso MD completed EKG Juanpablo Reinoso MD completed FVC / MVV with bronchodilator - 25754 Juanpablo Reinoso MD completed BLOOD COUNT HEMOGLOBIN Juanpablo Reinoso MD completed FRC - 68074 Juanpablo Reinoso MD completed SpO2 w/o 6min walk/titration Juanpablo Reinoso MD completed DLCO - 85332 Juanpablo Reinoso MD complete d Stress EKG Shade Arrington MD complete d Regadenoson, 4 units Juanpablo Reinoso MD completed Cardiolite, 2 units Juanpablo Reinoso MD c ompleted SPECT Images Jam Le MD compl eted SNOMED-CT: [id number] Physical Exam, Performed: Pulse Exam of Foot Juanpablo Reinoso MD completed EKG Juanpablo Reinoso MD completed SNOMED-CT: [id number] Current Medications Documented Juanpablo Reinoso MD completed EKG Juanpablo Reinoso MD completed EKG Juanpablo Reinoso MD completed EKG Khang Marrero MD completed EKG Juanpablo Reinoso MD completed EKG Juanpablo Reinoso MD completed EKG Juanpablo Reinoso MD completed EKG Juanpablo Reinoso MD completed
--- OUTSIDE RECORDS SUMMARY | 2024-09-05 17:06 | XMS_ITS | Clinical Summary ---
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 children were not included. (Diabetes Care 31:1952-5085, 2008). The eAG is not equivalent to a fasting glucose. Blood 11/18/2023 8:26 AM CDT 11/18/2023 9:02 AM CDT us Reggie Liao NP LAB BLOOD ORDERABLES Final Result Performing Organization Address [facility] Co de Phone Number CHAR [address] [address] Department [place] [address] * Albumin Creatinine Ratio, Urine (05/25/2023 2:48 [...] - 05/26/2023 8:16 AM CDT Performed at: [address] [id number] Handle Assembler: Erick Pacheco PhD, Phone: [phone] Duy Palm MD LAB URINE ORDERABLES Final Resu lt Performing Organization Address City/[facility] Co de Phone Number [facility] - 01 * (ABNORMAL) Lipid panel (03/25/2022 1:39 PM [...] factors. LDL-C is now calculated using the Juve calculation, which is a validated novel method providing better accuracy than the Friedewald equation in the estimation of LDL-C. Hugo BLANK et al. LISA. 2013;310(36): 2916-5489 (http://education.[employer]/faq/YAU930) Chol/HDL ratio 3.4 <5.0 (calc) [facility] Non-HDL, (LDL+VLDL) 107 <130 mg/dL (calc) [facility] Comment: For patients with diabetes plus 1 major ASCVD risk factor, treating to a non-HDL-C goal of <100 mg/dL (LDL-C of <70 mg/dL) is considered a therapeutic option. Blood specimen (specimen) 03/25/2022 1:39 PM CDT 03/25/2022 1:40 PM CDT Arti FERRERA LAB BLOOD ORDERABLES Final Result [facility] [address] [facility] [place] [address] * COLONOSCOPY (12/17/2020 12:42 PM CDT) Anatomical Region Laterality Modality Other Narrative Procedure Note Venkat Laguerre MD - 12/17/2020 12:42 PM CDT [facility] Patient Name: Osvaldo Rawls Procedure Date: 12/17/2020 12:42 PM Date of : 1945 Admit Type: Inpatient Age: 75 Gender: Female Note Status: Finalized Attending MD: Venkat Laguerre M.D. Procedure Date: 12/17/2020 Procedure: Colonoscopy Indications: Chronic diarrhea Providers: Venkat Laguerre M.D., Renee Rich CRNA (Anesthesia Staff), Ashleigh Heredia, RN, Mattie Lechuga RN Referring MD: Arti [...] the bowel preparation was evaluated using theBBPS (Scott Bowel Preparation Scale) with scores of:Right Colon [...] loose bowelmovement. Procedure Code(s): --- Professional --- 03616, Colonoscopy, flexible; with removal of tumor(s), polyp(s), or other lesion(s) by snare technique 96455, 59, Colonoscopy, flexible; with biopsy,single or multiple Diagnosis Code(s): --- Professional --- K63.5, Polyp of colon K52.9, Noninfective gastroenteritis and colitis, unspecified CPT copyright 2019 [employer]. All rights reserved. The codes documented in this report are preliminary and upon registered occupational therapist reviewmay be revised to meet current compliance requirements. Electronically signed by Venkat Laguerre MD Venkat Laguerre M.D. 12/17/2020 1:26:16 PM Number of Addenda: 0 Note Initiated On: 12/17/2020 12:42 PM Venkat Laguerre MD ENDOSCOPY PROCEDURES Final Resul t * HM MAMMOGRAPHY (04/09/2020) us Venkatesh Sullivan MD HEALTH MAINTENANCE Fi nal Result * Serum Hepatitis C ab (11/25/2014 2:52 AM CDT) HCV ab Negative Negative HISTORICAL RESULTS Serum 11/25/2014 2:52 AM CDT Historical Provider LAB BLOOD ORDERABLES Stephanie baker Result HISTORICAL RESULTS from Last 3 Months or Most Recently Relevant to Health Maintenance Insurance [employer] MED[employer] SOLUTIONS [facility] IDPA [facility] MEDICARE SOLUTIONS [employer] MED[employer]ARE SOLUTIONS Advance Directives For more information, please contact: [phone] * Full Code (Latest Code Status on [...] 11:59 AM 12/26/2020 7:35 PM Care Teams P[place]man Relationship Specialty Start Date End Date Annette Dailey NP [address] [place] [address] PCP - General Internal Medicine 11/23/22 Shade Arrington Jr., MD [address] [place] [address] Consulting Physician Cardiovascular Disease 09/07/20 Juanpablo Reinoso MD [address] [place] [address] Consulting Physician Cardiovascular Disease 12/13/20 Ritesh Guardado MD [address] [place] [address] Referring Physician Cardiovascular Disease 12/26/20 [place] [address] [address] Surgeon Orthopedic Surgery 12/26/20 [place] [address] [address] Consulting Physician Gastroenterology 12/26/20 Jam Le MD [address] [place] [address] Consulting Physician Cardiology 11/29/23 Miscellaneous, Not In File 11/29/23
--- NOTE | 2024-09-05 18:42 | ECG_ITS ---
Test Date: 2024-09-05 18:45:52 Measurements Intervals [place] Rate: 59 P: 53 MA: 164 QRS: 31 QRSD: 77 T: 62 QT: 414 QTc: 411 Interpretive Statements SINUS BRADYCARDIA VOLTAGE CRITERIA FOR LVH ANTEROSEPTAL INFARCT, AGE INDETERMINATE BASELINE ARTIFACT- I, II, AVR, AVL, AVF, V6 ABNORMAL ECG Compared to ECG 06/29/2024 21:10:40 HEART RATE HAS DECREASED Electronically Signed On 09-05-2024 20:00:10 BLOWING WEASAND by Naldo Tamayo D.O.
--- NOTE | 2024-09-05 18:43 | PC.NURSE ---
Pts daughter states I'm getting messages on my moms loop recording that it is critical she get her heart checked. I don't want her to in the waiting room. Pt asymptomatic EKG competed
--- NOTE | 2024-09-05 19:54 | PC.NURSE ---
Patient approached triage desk stating that she was leaving due to wait times. Pt states she will have someone at home with her all night to monitor her and continuously take her bp.
--- OUTSIDE RECORDS SUMMARY | 2024-09-05 20:06 | XMS_ITS | Clinical Summary ---
Author Organization [facility] ([facility] Quin lu [facility] Address [address] [address] Care Team Providers Care Tack Coverer Name Role Phone Unavailable Primary Care Provider [...] DAY TO REDUCE RISK OF CV , KS, OR STROKE IN PATIENTS W/ CAD OR [...] Comments Blood Pressure 106/46 06/30/2023 2:23 PM MANAGER MERCHANDISE Pulse 76 08/20/2022 9:30 AM MANAGER MERCHANDISE Temperature 36.1 C (97 F) 06/30/2023 2:23 PM MANAGER MERCHANDISE Respiratory Rate 10 06/30/2023 2:23 PM MANAGER MERCHANDISE Oxygen Saturation 96% 06/30/2023 2:23 PM MANAGER MERCHANDISE Inhaled Oxygen Concentration - - Weight 75.3 kg (166 lb) 06/30/2023 2:23 PM MANAGER MERCHANDISE Height 157.5 cm (5' 2 ) 07/16/2022 10:21 AM MANAGER MERCHANDISE Body Mass Index 30.36 07/16/2022 10:21 AM MANAGER MERCHANDISE Plan of Treatment Health Maintenance Due Date [...]
--- OUTSIDE RECORDS SUMMARY | 2024-09-05 20:06 | XMS_ITS | Clinical Summary ---
Author Organization [facility] Address [address] [place] [address] Care Team Providers Care Director Of Group Counseling Program Name Role Phone Venkatesh Sullivan MD Primary Care Provider [phone] Source Comments [facility],non-owned Affiliates and Associated Physician Practices is amultiple site organization consisting of ambulatory clinics and hospital sitesin [place], [place], [place] and [place]. This disclosure is being madepursuant to the Care Everywhere program and may not contain all information available regarding this patient. Last updated 18.[facility] Wikirin Allergies Active Allergy Reactions Criticality Noted Date Comments Contrast-Iodinated Agents Fo r Ct/Other 09/14/2011 Old ivp dye from 3865-6983's. No trouble with IV DYE from recent [...] Units subcutaneously 2 times daily. Active B Tkiirzk-U-Tgcin Acid (VITAMIN B COMPLEX WITH C) TABS Take 1 Tab by mouth once daily. Active [place]-3 Fatty Acids (FISH OIL) 300 MG CAPS [...] nitroglycerin (NITROLINGUAL) 0.4 MG/SPRAY spray Dissolve 1 [place] under the tongue every 5 minutes as [...] 3:50 PM 09/16/2011 12:16 AM Care Teams Director Of Group Counseling Program Relationship Specialty Start Date End Date Venkatesh Sullivan MD [address] [place] [address] [address] [place], [place] [id number] PCP - General 01/13/18
--- OUTSIDE RECORDS SUMMARY | 2024-09-05 20:06 | XMS_ITS | Encounter Summary ---
Author Organization [facility] Healthcare Address [address] [place] [address] Care Team Providers Care Digital Content Manager Name Role Phone Murphy Diaz MD, Shade Monson Unavailable [phone] Juanpablo Reinoso MD Unavailable iRtesh Guardado MD Unavailable Duke Dunlap MD Unavailable [phone] Venkat Laguerre MD Unavailable Annette Dailey NP Primary Care Provider [phone] Jam Le MD Unavailable [phone] Miscellaneous, Not In File Unavailable Unava ilable Reason for Visit * Reason Onset Date Comments Hypertension 09/05/2024 Encounter Details Date Type Department Care Team (Late st Contact Info) Description 09/05/2024 Nurse Triage [facility] Medical Group Internal Medicine at [place] [address] [place] [address] Annette Dailey NP [address] [place] [address] Social History Tobacco Use Types Packs/Day Years Used Date Smoking Tobacco: Never Smokeless Tobacco: Never Alcohol Use Standard Drinks/Week Comments Not Currently 0 (1 standard drink = 0.6 oz pur e alcohol) [facility] Utilities Answer Date Recorded In the [...] often do you attend chur ch or islam services? 1 to 4 times per year 11/18/2023 Do you belong to any clubs o r organizations such as alevism groups, unions, fraternal or athletic groups, or [...] place to sleep or slept in a fdc (including now)? No 11/18/2023 Personal Safety Answer Date Recorded Have you ever been in or are you currently in a harmful physical or emotional relationship or is someone making you feel afraid or unsafe? 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 m1 armor crewman recommends ED Now. Ms. Rawls verbalizes understanding. She will have another person drive. Routing as an FYI. Reason for Disposition Systolic BP >= 160 OR Diastolic >= 100, and any cardiac (e.g., breathing difficulty, chest pain) or neurologic symptoms (e.g., new-onset blurred or double vision) Protocols used: Blood Pressure - Mkmq-Juidr-LM ET LATHE MACHINIST * Telephone Encounter - Sheyla Skinner RN - 09/05/2024 3:33 PM CST Regarding: dizzy and higher blood pressure ----- Message from Ira Vonda sent at 09/05/2024 3:27 PM TURRET LATHE MACHINIST ----- Symptom Based Call Chief Complaint(s): dizzy, [...] message need to be routed? Yes-Action Needed ET LATHE MACHINIST documented in this encounter Plan of Treatment Not on file documented as of this encounter Visit Diagnoses Not on filedocumented in this encounter Care Teams Digital Content Manager Relationship Specialty Start Date End Date Annette Dailey NP [address] [place] [address] PCP - General Internal Medicine 11/23/22 Shade Arrington Jr., MD [address] [place] [address] Consulting Physician Cardiovascular Disease 09/07/20 Juanpablo Reinoso MD [address] [place] [address] Consulting Physician Cardiovascular Disease 12/13/20 Ritesh Guardado MD [address] [place] [address] Referring Physician Cardiovascular Disease 12/26/20 [place] [address] [facility] [address] [place] [address] Surgeon Orthopedic Surgery 12/26/20 [place] [address] [address] Consulting Physician Gastroenterology 12/26/20 Jam Le MD [address] [place] [address] Consulting Physician Cardiology 11/29/23 Miscellaneous, Not In File 11/29/23 documented as of this encounter
--- OUTSIDE RECORDS SUMMARY | 2024-09-05 20:06 | XMS_ITS | Referral Summary ---
Author Organization [facility] Address [address] [address] Care Team Providers Care Photocopying Machine Operator Name Role Phone Venkatesh Sullivan MD Primary Care Provider [phone] Source Comments [facility],non-owned Affiliates and Associated Physician Practices is amultiple site organization consisting of ambulatory clinics and hospital sitesin [place], [place], [place] and [place]. This disclosure is being madepursuant to the Care Everywhere program and may not contain all information available regarding this patient. Last updated 18.[facility] Allergies Active Allergy Reactions Criticality Noted Date Comments Contrast-Iodinated Agents Fo r Ct/Other 09/14/2011 Old ivp dye from 8994-7242's. No trouble with IV DYE from recent [...] Units subcutaneously 2 times daily. Active B Tmrwube-D-Bkmup Acid (VITAMIN B COMPLEX WITH C) TABS Take 1 Tab by mouth once daily. Active [place]-3 Fatty Acids (FISH OIL) 300 MG CAPS [...] nitroglycerin (NITROLINGUAL) 0.4 MG/SPRAY spray Dissolve 1 [place] under the tongue every 5 minutes as [...] 3:50 PM 09/16/2011 12:16 AM Care Teams Photocopying Machine Operator Relationship Specialty Start Date End Date Venkatesh Sullivan MD [facility] [address] PCP - General 01/13/18
--- OUTSIDE RECORDS SUMMARY | 2024-09-05 20:06 | XMS_ITS | Encounter Summary ---
Author Organization [facility] Healthcare Address [address] [place] [address] Care Team Providers Care Conveyor Tender Name Role Phone Murphy Diaz MD, Shade Monson Unavailable [phone] Juanpablo Reinoso MD Unavailable Ritesh Guardado MD Unavailable Duke Dunlap MD Unavailable Venkat Laguerre MD Unavailable Annette Dailey NP Primary Care Provider [phone] Jam Le MD Unavailable [phone] Miscellaneous, Not In File Unavailable Unava ilable Neda Hanson MA Unavailable Reason for Visit * Reason Onset Date Comments Medical Question/Miscellaneous 08/08/2024 Encounter Details Date Type Department Care Team (Late st Contact Info) Description 08/08/2024 Telephone [facility] Medical Group Internal Medicine at [place] [address] [place] [address] Annette Dailey NP [address] [place] [address] Medical Question/Miscellaneous Social History Tobacco Use Types Packs/Day Years Used Date Smoking Tobacco: Never Smokeless Tobacco: Never Alcohol Use Standard Drinks/Week Comments Not Currently 0 (1 standard drink = 0.6 oz pur e alcohol) [facility] Utilities Answer Date Recorded In the [...] often do you attend chur ch or gnosticist services? 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 Does message need to be routed? Yes-FYI Only ING CLERK documented in this encounter Plan of Treatment Not on file documented as of this encounter Visit Diagnoses Not on filedocumented in this encounter Care Teams Conveyor Tender Relationship Specialty Start Date End Date Annette Dailey NP [address] [place] [address] PCP - General Internal Medicine 11/23/22 Shade Arrington Jr., MD [address] [place] [address] Consulting Physician Cardiovascular Disease 09/07/20 Juanpablo Reinoso MD [address] [place] [address] Consulting Physician Cardiovascular Disease 12/13/20 Ritesh Guardado MD [address] [place] [address] Referring Physician Cardiovascular Disease 12/26/20 [place] [address] [address] Surgeon Orthopedic Surgery 12/26/20 [place] [address] [address] Consulting Physician Gastroenterology 12/26/20 Jam Le MD [address] [place] [address] Consulting Physician Cardiology 11/29/23 Miscellaneous, Not In File 11/29/23 Neda Hanson MA [address] [place] [address] [employer] Care Guest Service Representative 08/24/24 08/24/24 documented as of this encounter
--- OUTSIDE RECORDS SUMMARY | 2024-09-05 20:07 | XMS_ITS | Encounter Summary ---
Author Organization [facility] Healthcare Address [address] [place] [address] Care Team Providers Care Director Of First Impressions Name Role Phone Murphy Diaz MD, Shade Monson Unavailable [phone] Juanpablo Reinoso MD Unavailable Ritesh Guardado MD Unavailable Duke Dunlap MD Unavailable [phone] Venkat Laguerre MD Unavailable Annette Dailey NP Primary Care Provider Jam Le MD Unavailable [phone] Miscellaneous, Not In File Unavailable Unava ilable Esther Martínez MA Unavailable Unavailable Neda Hanson MA Unavailable Encounter Details Date Type Department Care Team (Late st Contact Info) Description 03/08/2024 Orders Only [facility] Health Information Management [address] [place] [address] Scanning, Provider Social History Tobacco Use Types Packs/Day Years Used Date Smoking Tobacco: Never Smokeless Tobacco: Never Alcohol Use Standard Drinks/Week Comments Not Currently 0 (1 standard drink = 0.6 oz pur e alcohol) [facility] Utilities Answer Date Recorded In [...] often do you attend chur ch or spiritism services? 1 to 4 times per year 11/18/2023 Do you belong to any clubs o r organizations such as bahai groups, unions, fraternal or athletic groups, or [...] place to sleep or slept in a long term (including now)? No 11/18/2023 Personal Safety Answer Date Recorded Have you ever been in or are you currently in a harmful physical or emotional relationship or is someone making you feel afraid or unsafe? 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 Not on file [...] on filedocumented in this encounter Care Teams Director Of First Impressions Relationship Specialty Start Date End Date Annette Dailey NP [address] [facility] [address] [place] [address] PCP - General Internal Medicine 11/23/22 Shade Arrington Jr., MD [address] [place] [address] Consulting Physician Cardiovascular Disease 09/07/20 Juanpablo Reinoso MD [address] [place] [id number] Consulting Physician Cardiovascular Disease 12/13/20 Ritesh Guardado MD [address] [place] [id number] Referring Physician Cardiovascular Disease 12/26/20 [place] [address] [address] Surgeon Orthopedic Surgery 12/26/20 [place] [address] [address] Consulting Physician Gastroenterology 12/26/20 Jam Le MD [address] [place] [address] Consulting Physician Cardiology 11/29/23 Miscellaneous, Not In File 11/29/23 Esther Martínez MA [address] [place] [address] [employer]CO Care Business Development Recruiter 07/05/24 07/09/24 Neda Hanson MA [address] [place] [address] ACO Care Business Development Recruiter 08/24/24 08/24/24 documented as of this encounter
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
--- OUTSIDE RECORDS SUMMARY | 2024-09-05 20:07 | XMS_ITS | CONTINUITY OF CARE DOCUMENT ---
Author Name kiet santa Address Unknown Organization [facility] Address [address] [place] [address] Phone [phone] Care Team Providers Care Inspector Name Role Phone [place], Juanpablo Apodaca Unavailable [phone] GEMA KINGSLEY MD Unavailable ROMULO [place], NIDAL Unavailable [phone] PROBLEMS Condition Status Date Provider Notes S/P Implantable Loop Recorder-Biotronik ( MRI Safe) active Tori Browne FIBROMYALGIA active Liat Stahlschmidt OBESITY active Liat Stahlschmidt DIABETES MELLITUS active Liat Stahlschmid t Chest pain completed - Marc Díaz CAD;CAROTID PLAQUE active Raymond Guerra MD CAD-10/06 NUC NEG completed - Juanpablo Reinoso MD Shortness of breath completed - Marc Díaz Syncope active Juanpablo Reinoso MD S/P CABG (MELENDEZ-LAD) 04/1997 active Juanpablo jackson MD Carotid artery stenosis, <50 % ICA b/l completed - Raymond Guerra MD Fatigue active Marc Díaz Palpitations active Raymond Guerra MD Exposure to SARS-associated coronavirus;NEG SWAB and IGG active Raymond Guerra MD B12 deficiency active Raymond Guerra MD Frequent falls active Juanpablo Reinoso MD Headache, post traumatic active Gema Lopez nbach Neuropathy active Raymond Guerra MD b12 on r x,neg rpr Cerebral atherosclerosis active Raymond sol MD Hypothyroidism active Raymond Guerra MD AORTIC REGURGITATION active Raymond Villanueva Screening active Raymond Guerra MD Localized swelling on legs, bilateral completed - Raymond Guerra MD PAD - S/P ATHERECTOMY R SFA, R TIBIOPERONEAL TRUNK 11/15 active Ludmila Casarez Leg pain, bilateral active Ludimla Wheat eyer At risk for falls active Ludmila Agudelo er CKD, stage 3 active Raymond Guerra MD on FAR XIAAG, NEG DUPLEX AND US, NEG UACR Foot ulcer, left active Ludmila Lyons r DIZZINESS active Juanpablo Reinoso MD Angina with CAD completed - Raymond Guerra MD Hypertriglyceridemia active Raymond Villanueva Diastolic CHF active Raymond Guerra MD Screening - negative COVID IgG/IgM/IgA and swab 02/2020 active Marc Díaz TIA active Marc Díaz Iron deficiency active Marc Díaz Vitamin D deficiency active Marc Perkins erg Crohn's disease active Marc Díaz Thyroid goiter active Juanpablo Reinoso MD LVH - mild 01/2019 active Marc mayfield HTN essential;NEG DUPLEX active Raymond sol MD LEG PAIN-01/05 AJ DOP NEG completed - Juanpablo jackson MD LEG PAIN-10/01 ALEJA NEG completed - Marc wagner CABG- MELENDEZ-LAD completed - Juanpablo Villanueva Hyperlipidemia;with high crp and lpa active Raymond Guerra MD Angina pectoris completed - [facility] ENCOUNTERS Date Type Provider Location Encounter Diag nosis - In-person encounter Office Visit Juanpablo Reinoso MD [facility] Frequent fallsHeadache, post traumatic - In-person encounter Office Visit Juanpablo Reinoso MD [facility] - In-person encounter Office Visit Juanpablo Reinoso MD [facility] - In-person encounter Office Visit Juanpablo Reinoso MD [facility] - In-person encounter Office Visit Juanpablo Reinoso MD [facility] - In-person encounter Office Visit Juanpablo Reinoso MD [facility] - In-person encounter Office Visit Juanpablo Reinoso MD [facility] - In-person encounter Office Visit Raymond Guerra MD [facility] Hyperlipidemia;with high crp and lpaHTN essential;NEG DUPLEXCAD;CAROTID PLAQUECarotid artery stenosis, <50% ICA b/lDiastolic CHFAngina with CADExposure to SARS-associated coronavirus;NEG SWAB and IGGCKD, stage 3Localized swelling on legs, bilateralScreeningAORTIC REGURGITATIONHypothyroidismCerebral jilpzakwehizvzmPhkrsfzpztM15 deficiency - In-person encounter Office Visit Juanpablo Reinoso MD [facility] - In-person encounter Office Visit Jaunpablo Reinoso MD [facility] PAD - S/P ATHERECTOMY R SFA, R TIBIOPERONEAL TRUNK 11/15 - In-person encounter Office Visit Juanpablo Reinoso MD [facility] Leg pain, bilateral - In-person encounter Office Visit Juanpablo Reinoso MD [facility] - In-person encounter Office Visit Ania Ramirez MD [facility] - In-person encounter Office Visit Ania Ramirez MD [facility] - In-person encounter Office Visit Juanpablo Reinoso MD [facility] At risk for falls - In-person encounter Office Visit Juanpablo Reinoso MD [facility] - In-person encounter Office Visit Juanpablo Reinoso MD [facility] CKD, stage 3 - In-person encounter Office Visit Ania Ramirez MD [facility] Foot ulcer, left - In-person encounter Office Visit Juanpablo Reinoso MD [facility] DIZZINESS - In-person encounter Office Visit Juanpablo Reinoso MD [facility] - In-person encounter Office Visit Juanpablo Reinoso MD [facility] - In-person encounter Office Visit Raymond Guerra MD [facility] Diastolic CHFHypertriglyceridemiaPalpitations - In-person encounter Office Visit Juanpablo Reinoso MD [facility] Chest painAngina pectorisCAD;CAROTID PLAQUEShortness of breathScreening - negative COVID IgG/IgM/IgA and swab 02/2020Fatigue - In-person encounter Office Visit Juanpablo Reinoso MD [facility] Hyperlipidemia;with high crp and lpaLEG PAIN-10/01 ALEJA NEGHTN essential;NEG DUPLEXLVH - mild 01/2019TIAScreening - negative COVID IgG/IgM/IgA and swab 02/2020 - In-person encounter Office Visit Shade Arrington MD [facility] - In-person encounter Office Visit Juanpablo Reinoso MD [facility] CAD;CAROTID PLAQUEThyroid goiterS/P CABG (MELENDEZ-LAD) 04/1997Crohn's diseaseVitamin D deficiencyIron deficiency - In-person encounter Office Visit Juanpablo Reinoso MD [facility] Syncope - In-person encounter Office Visit Juanpablo Reinoso MD [facility] - In-person encounter Office Visit Juanpablo Reinoso MD [facility] - In-person encounter Office Visit Juanpablo Reinoso MD [facility] - In-person encounter Office Visit Juanpablo Reinoso MD [facility] - In-person encounter Office Visit Khang Marrero MD [facility] - In-person encounter Office Visit Khang Marrero MD [facility] - In-person encounter Office Visit Juanpablo Reinoso MD [facility] - In-person encounter Office Visit Juanpablo Reinoso MD [facility] - In-person encounter Office Visit Juanpablo Reinoso MD [facility] - In-person encounter Office Visit Genoveva Gutierrez MD [facility] CAD-10/06 NUC NEG - In-person encounter Office Visit Juanpablo Reinoso MD [facility] - In-person encounter Office Visit Juanpablo Reinoso MD [facility] - In-person encounter Office Visit Juanpablo Reinoso MD [facility] - In-person encounter Office Visit Juanpablo Reinoso MD [facility] CAD;CAROTID PLAQUE - In-person encounter Office Visit Juanpablo Reinoso MD [facility] LEG PAIN-01/05 AJ DOP NEGHTN essential;NEG DUPLEX - In-person encounter Office Visit Juanpablo Reinoso MD [facility] LEG PAIN-10/01 ALEJA NEG - In-person encounter Office Visit Juanpablo Reinoso MD [facility] Hyperlipidemia;with high crp and lpa - In-person encounter Office Visit Juanpablo Reinoso MD [facility] CABG- MELENDEZ-LAD VITAL SIGNS Date Observation Value Provider Body Mass Index (Ratio) 32.34 kg/m2 Bhargav Wells blood pressure, diastolic 54 mm[Hg] Ka yla [facility] blood pressure, systolic 152 mm[Hg] Dali la [facility] blood pressure, cuff size regular Ka yla [facility] oxygen saturation, oximetry 98 % Jana [facility] pulse rate 80 /min Jana [facility] weight E&M 174 [lb_av] [facility] height E&M 61.5 [in_i] [facility] Body Mass Index (Ratio) 31.26 kg/m2 Bhargav villanueva [facility] blood pressure, diastolic 69 mm[Hg] Vi pin [facility] blood pressure, systolic 145 mm[Hg] [facility] oxygen saturation, oximetry 99 % [facility] respiratory rate E&M 24 /min [facility] pulse rate 55 /min [facility] weight E&M 168.2 [lb_av] [facility] height E&M 61.5 [in_i] [facility] Body Mass Index (Ratio) 30.48 kg/m2 Grah [...] Mass Index (Ratio) 29.37 kg/m2 Grah am Lex blood pressure, cuff size regular Isreal blood pressure, diastolic 69 mm[Hg] Isreal [facility] blood pressure, systolic 166 mm[Hg] Vito [facility] pulse rate 76 /min Kelechi oxygen [...] Kehinde Body Mass Index (Ratio) 31.23 kg/m2 [facility] am Lex blood pressure, cuff size regular Fa [facility] blood pressure, diastolic 59 mm[Hg] Fa [facility] blood pressure, systolic 133 mm[Hg] Jose [facility] oxygen saturation, oximetry 98 % Roxy [place] respiratory rate E&M 16 /min Roxy M [...] y Body Mass Index (Ratio) 31.97 kg/m2 Janice Guerra MD blood pressure, cuff size regular [...] Grey lder height E&M 61.5 [in_i] Ira Grey lder Body Mass Index (Ratio) 34.20 kg/m2 [...] Lisandro oxygen saturation, oximetry 85 % Carolyn [place] respiratory rate E&M 14 /min Catheri ne Orlando pulse rate 77 /min Carolyn Lisandro height E&M 61.5 [in_i] Carolyn Orlando weight E&M 189 [lb_av] Carolyn Orlando Body Mass Index (Ratio) 34.39 kg/m2 Eugenia [...] jiang Body Mass Index (Ratio) 39.40 kg/m2 [facility] vladimir Armstrong blood pressure, resting Yes Jeff [...] MD blood pressure, resting Yes Harris ty [place] blood pressure, diastolic 70 mm[Hg] Kr isty Nevin blood pressure, systolic 150 mm[Hg] Kri stshakila Nevin pulse rate 75 /min Gisselle [place] oxygen saturation, oximetry 97 % Gisselle Nevin respiratory rate E&M 18 /min Gisselle Nevin weight E&M 225 [lb_av] Gisselle Nevin height E&M 61.5 [in_i] Gisselle [place] Body Mass Index (Ratio) 42.01 kg/m2 Rock rahman [facility] blood pressure, cuff size large Ke [facility]ri [facility], diastolic 62 mm[Hg] Ke rri [facility] blood pressure, systolic 126 mm[Hg] Wilfred ri Rosanaelder oxygen saturation, oximetry 96 % Ira Rosanaelder respiratory rate E&M 18 /min Ira G ruenenfelder pulse rate 65 /min Ira Matilda [facility] weight E&M 226 [lb_av] Ira Rosanae [facility] height E&M 61.5 [in_i] Ira Rosanae [facility] Body Mass Index (Ratio) 42.38 kg/m2 Rock rahman [facility] blood pressure, diastolic 89 mm[Hg] Cy ishaan [...] Trinidad [place] blood pressure, diastolic 65 mm[Hg] Nj ale [place] blood pressure, systolic 152 mm[Hg] [...] pressure, systolic 112 mm[Hg] Jesusita keshia Webster RELASTER pulse rate 75 /min Denyeannamaria Martínez oxygen [...] LinkLogic 3.5-5.2 sodium, serum 139 mmol/L [facility] [phone]/01 /23 urea nitrogen/creatinine ratio, serum 16 LinkLogic [...] Not Estab. platelet count 280 X10E3/UL [facility] 647-624 2289/01 /23 red blood cell distribution width 15.6 [...] X10E3/UL LinkLog 3.4-10.8 B-12, serum 854 pg/mL [facility] [phone] rapid plasma reagin antibody screen Non Reactive [facility] Non Reactive pro brain natriuretic peptide 570 pg/mL [facility] 0-738 calcium, serum 10.1 mg/dL LinkLog 8.7-10.3 carbon dioxide, venous blood 29 mmol/L [facility] 20-29 chloride, serum 99 mmol/L [facility]106 potassium, serum 5.2 mmol/L [facility] sodium, serum 140 mmol/L [facility] [phone]/11 /01 urea nitrogen/creatinine ratio, serum 18 [facility] 12-28 creatinine, serum 1.21 mg/dL LinkLog 0.57-1.00 High urea nitrogen, blood 22 mg/dL Link[facility] 8-27 blood glucose, random 84 mg/dL [facility] 70-99 prothrombin time (patient) 11.4 s LinkLog 9.0-11.5 Normal international normalized ratio (INR) 1.1 [facility] Normal basophils as percent of blood leukocytes [...] Normal Absolute Neutrophil count 3966 cells/mcL [facility] 9029-4230 Normal mean platelet volume 9.4 fL LinkLog[facility] [...] Normal Absolute Neutrophil count 5704 cells/mcL [facility] 4742-0309 Normal mean platelet volume 9.0 fL [facility]Logic [...] Normal Absolute Neutrophil count 5970 cells/mcL [facility] 4948-8346 Normal mean platelet volume 9.8 fL [facility]Logic [...] Normal Absolute Neutrophil count 8760 cells/mcL [facility] 7100-1277 High mean platelet volume 9.7 fL [facility]ic [...] Normal Absolute Neutrophil count 8184 cells/mcL [facility] 1119-4367 High mean platelet volume 9.2 fL [facility]ic [...] iron binding capacity, unsaturated 294 ug/dL [facility] 926-892 8575/12 /17 iron binding capacity, total 354 ug/dL [facility] 624-685 6003/12 /17 basophil count, absolute 0.1 x10E3/uL [facility] [...] Not Estab. platelet count 358 X10E3/UL [facility] 744-266 4064/12 /17 red blood cell distribution width 15.0 [...] LinkLogic 3.4-10.8 LDL cholesterol, serum 144 mg/dL [facility] ferritin, serum 21 ng/mL [facility] 15-150 pro brain natriuretic peptide 144 pg/mL [facility] 0-301 prothrombin time (patient) 10.4 s [facility] 9.1-12.0 international normalized ratio (INR) 1.0 [facility] 0.8-1.2 iron saturation percent, serum 25 % [facility] 15-55 iron, serum 96 ug/dL [facility] 27-139 iron binding capacity, unsaturated 284 ug/dL [facility] 914-420 2819/08 /20 iron binding capacity, total 380 ug/dL [facility] 516-675 9046/08 /20 lipoprotein, beta, serum, point, quantitative, calculated [...] LinkLogic 3.5-5.2 sodium, serum 141 mmol/L [facility] 809-808 5571/08 /20 urea nitrogen/creatinine ratio, serum 17 LinkLogic [...] Not Estab. platelet count 425 X10E3/UL [facility] 813-345 1478/08 /20 red blood cell distribution width 14.7 % [facility] 11.7-15.4 mean corpuscular hemoglobin concentration, RBC 32.6 G/DL [facility] 31.5-35.7 mean corpuscular hemoglobin, RBC 27.2 pg [facility] 26.6-33.0 mean corpuscular volume, RBC 83 fL [facility] 79-97 hematocrit, blood 37.1 % [facility] 34.0-46.6 hemoglobin, blood 12.1 g/dL [facility] 11.1-15.9 erythrocyte (RBC) count 4.45 X10E6/UL [facility] 3.77-5.28 leukocyte count, blood 9.9 X10E3/UL [facility] 3.4-10.8 triglyceride, serum, random 218 mg/dL [facility] triiodothyronine (T3), serum 125 ng/dL [facility] magnesium, serum 1.8 mg/dL [facility] thyroid stimulating hormone, serum <0.015 [facility] thyroxine, serum, free 1.16 ng/dL [facility] hemoglobin A1C, blood, as % of total hemoglobin 9.0 % [facility] triglyceride, serum, fasting 218 mg/dL [facility] HDL cholesterol, serum 39 mg/dL [facility] LDL cholesterol, serum 116 mg/dL [facility] cholesterol, serum 181 mg/dL [facility] red blood cell distribution width 14.1 % [facility] platelet count 315 10*3/mm3 [facility] mean corpuscular hemoglobin concentration, RBC 32.6 % [facility] mean corpuscular hemoglobin, RBC 28.[address] [facility] mean corpuscular volume, RBC 86.[address] [facility] hematocrit, blood 38.3 % [facility] hemoglobin, blood 12.5 g/dL [facility] erythrocyte (RBC) count 4.44 10*6/mm3 [facility] leukocyte count, blood 11.2 10*3/mm3 [facility] calcium, serum 10.1 mg/dL [facility] blood glucose, random 262 mg/dL [facility] creatinine, serum 0.90 mg/dL [facility] urea nitrogen, blood 21 mg/dL [facility] carbon dioxide, venous blood 30 mmol/L [facility] chloride, serum 96 mmol/L [facility] potassium, serum 3.9 mmol/L [facility] sodium, serum 135 mmol/L [facility] alanine aminotransferase (SGPT), serum 16 1/L [facility] aspartate aminotransferase (SGOT), serum 16 1/L [facility] creatinine, serum 0.90 mg/dL [facility] potassium, serum 4.3 mmol/L [facility] sodium, serum 143 mmol/L [facility] platelet count 525 10*3/uL [facility] hematocrit, blood 34.7 % [facility] potassium, serum 4.6 mmol/L [facility] sodium, serum 140 mmol/L [facility] creatinine, serum 0.91 mg/dL [facility] thyroid stimulating hormone, serum 0.161 u[IU]/mL [facility] B-type natriuretic peptide 47.0 pg/mL [facility] platelet count 671 10*3/uL [facility] hematocrit, blood 29.9 % [facility] creatinine, serum 1.98 mg/dL [facility] potassium, serum 4.3 mmol/L [facility] sodium, serum 135 mmol/L [facility] platelet count 322 10*3/uL [facility] hematocrit, blood 30.4 % [facility] prothrombin time (patient) 10.6 s LinkLog 9.0-11.5 [...] High Absolute Neutrophil count 6973 cells/mcL [facility] 2815-8241 Normal platelet count 373 THOUSAND/UL [facility] 140-400 [...] 65-99 High triglyceride, serum, fasting 184 mg/dL [facility] HDL cholesterol, serum 40 mg/dL [facility] LDL cholesterol, serum 65 mg/dL [facility] cholesterol, serum 142 mg/dL [facility] anion gap, serum 14 [facility] calcium, serum 9.3 mg/dL [facility] blood glucose, fasting 278 mg/dL [facility] creatinine, serum 1.40 mg/dL [facility] urea nitrogen, blood 28 mg/dL [facility] carbon dioxide, serum, total 27 mmol/L [facility] chloride, serum 98 mmol/L [facility] potassium, serum 4.0 mmol/L [facility] sodium, serum 135 mmol/L [facility] prothrombin time (patient) 10.0 s LinkLogic 9.0-11.5 [...] Caleb JOSESITO chloride, serum 105 mmol/L [facility] potassium, serum 4.7 mmol/L [facility] sodium, serum 138 mmol/L [facility] platelet count 362 10*3/uL [facility] Caleb JOSESITO hematocrit, blood 34.5 % [facility] Selena hemoglobin, blood 10.5 g/dL [facility] erythrocyte (RBC) count 10.5 10*6/mm3 [facility] monocyte count, blood 9.0 10*3/mm3 [facility] lymphocyte count, blood 39.1 10*3/mm3 [facility] monocytes as percent of blood leukocytes 9.0 % [facility] lymphocytes as percent of blood leukocytes 39.1 % [facility] leukocyte count, blood 4.02 10*3/mm3 [...] at night as needed - Cleo Ventimiglia FRAME HAND nitroglycerin 0.4 mg tablet, sublingual active PLACE 1 TABLET UNDER TONGUE ONCE A DAY Racquel Henry clopidogrel 75 mg tablet active TAKE 1 TABLET BY MOUTH EVERY DAY [facility] buspirone 7.5 mg tablet active Cleo Ventimiglia FRAME HAND Ozempic 0.25 mg or 0.5 mg (2 [...] DAY TO REDUCE RISK OF CV , DC, OR STROKE IN PATIENTS W/ CAD OR [...] 22 unit once a day Cleo Pathak FRAME HAND insulin lispro 100 unit/mL insulin pen active [...] day - Saritha Marquez VITAMIN D (ERGOCALCIFEROL) 47980 UNIT ORAL CAPSULE completed One capsule weekly [...] mouth once a day - Cleo Kapilmiglramya FRAME HAND LORCET 10/650 TABLET completed QD - Taejanelleannamaria [...] Mariscalrhea smoking status Never smoker Gema Barneyrula [facility] personal history of marijuana use no Cleo Ventimiglia [facility] drug use no Cleo Ventimig linsey [facility] alcohol use no Cleo Ventimig linsey [facility] passive cigarette sm arthur exposure no Cleo Ventimiglia [facility] smoking status Never smoker Cleo Ventim iglia [facility] drug use no Bryan Lex alcohol use [...] Lex drug use no Cleo Ventimig linsey [facility] alcohol use no Cleo Ventimig linsey [facility] smoking status Never smoker Cleo Ventim iglia [facility] social history E&M Marital Statu s: L [...] e drinks per day 0 /d Carolyn Orlando passive cigarette sm arthur exposure no Carolyn [...] alcohol use, average drinks per day none Lenana Bland alcohol use no Leanna Bland caffeine use, averag e drinks per day [...] Management Plan continue current therapy Cleo Ventimiglia FRAME HAND HRA, CV Assess/Plan, Angina (inactive) Management Plan continue current therapy Bryan Lex HRA, CV Assess/Plan, Angina (inactive) Management Plan continue current therapy Bryan Lex HRA, CV Assess/Plan, Angina (inactive) Management Plan continue current therapy Juanpablo Reinoso MD HRA, CV Assess/Plan, Angina (inactive) Management Plan continue current therapy Cleo Ventimiglia FRAME HAND HRA, CV Assess/Plan, Angina (inactive) Management Plan [...] MD FAMILY HISTORY Family Member Condition Mother DC female <65 Mother Family History of Hy [...] Payer name Policy type / Coverage type [place] red libertarian ID [facility] COMPLETE CARE [id number] (PPO C-SNP) 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 Take 1 tablet by mouth every day Metoprolol Succinate 25 Mg Tablet Extended Release 24 Hr (Metoprolol succinate) ..... Take 1 tablet by mouth every day as directed Nitroglycerin 0.4 Mg Tablet, Sublingual (Nitroglycerin) ..... Place 1 tablet under tongue once a day Bryan Burnett [id number],S, B P today: 133/59 P rior BP: [...] by mouth once a day Bryan Burnett [id number],S,P t has stable claudication. Severe infrapopliteal disease. Recommend medical management. Increase atorvastatin for better LDL control. Lp(a) 257. She would like to participate in the [facility] trial. Bryan Burnett [id number],S,P t has stable claudication. Severe infrapopliteal disease. Recommend medical management. Increase atorvastatin for better LDL control. Lp(a) 257. She would like to participate in the [facility] trial. Bryan Burnett [id number],S, Increase atorvastatin for better LDL control. Lp(a) [...] tablet by mouth at bedtime Bryan Burnett [id number],B, Raymond sanford MD [id number],C,570 Raymond gillis MD [id number],S,s he had mod MR with normal EF on last echo W ill do f/u echo at time of next visit Cleojones Delgadomicahramya [facility] [id number],W,s he reports RLE heaviness and pain she [...] mouth once a day Juanpablo Reinoso MD [id number],C,n o chest pain or SOB at this time C ontinue plavix, xarelto and statin Juanpablo Reinoso MD [id number],C,c hronic. She did have episode of bradyardia noted on ILR where HR dropped to 39bpm for 2 minutes while sleeping w ill monitor Juanpablo Reinoso MD [id number],S, T he following medications were removed from [...] ..... Subcutaneously twice a day Cleo Pathak [facility] [id number],S, Cleo rhoades [facility] [id number],C,w ith reports of bilateral UE and LE neuropathy Cleojones Pathak [facility] [id number],C,B P 144/70 today W ill continue present [...] by mouth once a day Cleojones Pathak [facility] [id number],S,s he had mod MR with normal EF on last echo W ill do f/u echo [facility] [id number],C,MOD Raymond gillis MD [id number],C,433 Raymond gillis MD [id number],C,G ETS INFUFSION u p to date on colon Raymond Guerra MD [id number],C,6.2 Raymond gillis MD [id number],C,46 Raymond kim MD [id number],B, Raymond sanford MD [id number],S,R CA STEMTS AMD MELENDEZ TO LAD OEPN IN 21 CX STNET Raymond Guerra MD [id number],S,NEG STANDIN V D Raymond Guerra MD [id number],S, Raymond sanford MD [id number],C, H er updated medication list for this [...] ..... Subcutaneously twice a day Ludmila Casarez [id number],C, H er updated medication list for this problem includes: Icosapent Ethyl 1 Gram Capsule (Icosapent ethyl) ..... Take 2 capsules by mouth twice a day Ezetimibe 10 Mg Tablet (Ezetimibe) ..... Take 1 tablet by mouth at bedtime Atorvastatin 20 Mg Tablet (Atorvastatin) ..... Take 1 tablet by mouth every night Ludmila Casarez [id number],C, B P today: 142/63 P rior BP: [...] by mouth once a day Ludmila Casarez [id number],C, H er updated medication list for this [...] 2 (two) times a day Ludmilabrennan Houghbonita [id number],C,C omplaining of rest pain and numbness in both legs, worse on the right. Arterial duplex showed that there is severe tibial disease b/l and will plan AIF/intervention of the tibial arteries, starting on the right. Ludmila Leida [id number],C, H er updated medication list for this [...] 2 (two) times a day Ludmila Leida [id number],C, B P today: 140/65 P rior BP: [...] by mouth once a day Ludmila Casarez [id number],C, W eight loss advised Ludmila Casarez [id number],C, H er updated medication list for this [...] ..... Subcutaneously twice a day Ludmila Leida [id number],C, H er updated medication list for this problem includes: Icosapent Ethyl 1 Gram Capsule (Icosapent ethyl) ..... Take 2 capsules by mouth twice a day Ezetimibe 10 Mg Tablet (Ezetimibe) ..... Take 1 tablet by mouth at bedtime Atorvastatin 20 Mg Tablet (Atorvastatin) ..... Take 1 tablet by mouth every night Ludmila Leida [id number],C,P t underwent successful intervention of the RLE , she now complains of severe pain in the right thigh and leg with numbness in the foot. Associated with swelling. Will obtain arterial duplex and venous duplex of the lower extremities and will decide on angiogram depnding on results. Ludmila Leida [id number],C,P t underwent successful intervention of the RLE , she now complains of severe pain in the right thigh and leg with numbness in the foot. Associated with swelling. Will obtain arterial duplex and venous duplex of the lower extremities and will decide on angiogram depnding on results. Ludmila Leida [id number],C,P t underwent successful intervention of the RLE , she now complains of severe pain in the right thigh and leg with numbness in the foot. Associated with swelling. Will obtain arterial duplex and venous duplex of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 15mm and angioplasty of the RV branch. [facility] (11/05/2008) H gb: 10.5 (10/26/2008) HCT: 34.5 [...] rders: A rterial Duplex Lower Extremity Bilateral ([id number]) V enous Doppler Bilateral LE (30557) Juanpablo Reinoso MD routine: H er updated [...] Vision stent. (07/05/2006) Orders: C omplete Echo (CPT-98521) Juanpablo Reinoso MD routine: H er updated [...] (07/05/2006) Orders: S tress Test - Adenosine (21301) C omplete Echo (CPT-67428) Juanpablo Reinoso MD weak : T he [...] Ramirez MD completed SARS-CoV-2 (COVID-19) POC Juanpablo Reinoso MD completed EKG Dayanna Beckett completed EKG Juanpablo Reinoso MD completed EKG Ania Ramirez MD completed EKG Juanpablo Reinoso MD completed Mobile Cardiac Telem etry - Tech Raymond Guerra MD completed Mobile Cardiac Telem etry - Prof Raymond Guerra MD completed Feraheme 510mg Juanpablo Reinoso MD comple guillermina Therapeutic IV Infus ion up to 1 hour Juanpablo Reinoso MD completed EKG Juanpablo Reinoso MD completed FVC / MVV with bronchodilator - 04677 Juanpablo Reinoso MD completed BLOOD COUNT HEMOGLOBIN Juanpablo Reinoso MD completed FRC - 08939 Juanpablo Reinoso MD completed SpO2 w/o 6min walk/titration Juanpablo Reinoso MD completed DLCO - 66950 Juanpablo Reinoso MD complete d Stress EKG Shade Arrington MD complete d Regadenoson, 4 units Juanpablo Reinoso MD completed Cardiolite, 2 units Juanpablo Reinoso MD c ompleted SPECT Images Jam Le MD compl eted SNOMED-CT: [id number] Physical Exam, Performed: Pulse Exam of Foot Juanpablo Reinoso MD completed EKG Juanpablo Reinoso MD completed SNOMED-CT: [id number] Current Medications Documented Juanpablo Reinoso MD completed EKG Juanpablo Reinoso MD completed EKG Juanpablo Reinoso MD completed EKG Khang Marrero MD completed EKG Juanpablo Reinoso MD completed EKG Juanpablo Reinoso MD completed EKG Juanpablo Reinoso MD completed EKG Juanpablo Reinoso MD completed
--- OUTSIDE RECORDS SUMMARY | 2024-09-05 20:07 | XMS_ITS | Encounter Summary ---
Author Organization [facility] Healthcare Address [address] [place] [address] Care Team Providers Care Electrician Bus Name Role Phone Murphy Diaz MD, Shade Monson Unavailable [phone] Juanpablo Reinoso MD Unavailable Ritesh Guardado MD Unavailable Duke Dunlap MD Unavailable [phone] Venkat Laguerre MD Unavailable Annette Dailey NP Primary Care Provider [phone] Jam Le MD Unavailable [phone] Miscellaneous, Not In File Unavailable Unava ilable Esther Martínez MA Unavailable Unavailable Lesvia Aranda MA Unavailable [phone] Esther Martínez MA Unavailable Unavailable Neda Hanson MA Unavailable Encounter Details Date Type Department Care Team (Late st Contact Info) Description 11/04/2023 Orders Only [facility] Health Information Management [address] [place] [id number] Scanning, Provider Social History Tobacco Use [...] often do you attend chur ch or taoist services? More than 4 times per year 10/02/2021 Do you belong to any clubs o r organizations such as episcopalian groups, unions, fraternal or athletic groups, or [...] place to sleep or slept in a alf (including now)? No 10/02/2021 Personal Safety Answer Date Recorded Have you ever been in or are you currently in a harmful physical or emotional relationship or is someone making you feel afraid or unsafe? 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 Not on file Not on file Not [...] on filedocumented in this encounter Care Teams Electrician Bus Relationship Specialty Start Date End Date Annette Dailey NP [address] [address] PCP - General Internal Medicine 11/23/22 Shade Arrington Jr., MD [address] [place] [address] Consulting Physician Cardiovascular Disease 09/07/20 Juanpablo Reinoso MD [address] [place] [address] Consulting Physician Cardiovascular Disease 12/13/20 Ritesh Guardado MD [address] [place] [address] Referring Physician Cardiovascular Disease 12/26/20 [place] [address] [address] Surgeon Orthopedic Surgery 12/26/20 [place] [address] [address] Consulting Physician Gastroenterology 12/26/20 Jam Le MD [address] [place] [address] Consulting Physician Cardiology 11/29/23 Miscellaneous, Not In File 11/29/23 Esther Martínez MA [address] [place] [address] [address] [place] [address] [employer] 12/14/23 12/14/23 Lesvia Aranda MA [address] [place] [address] [address] [place] [address] [employer] 12/14/23 01/09/24 Esther Martínez MA [address] [place] [address] [address] [place] [address] [employer] 07/05/24 07/09/24 Neda Hanson MA [address] [place] [address] [address] [place] [address] [employer] 08/24/24 08/24/24 documented as of this encounter
--- OUTSIDE RECORDS SUMMARY | 2024-09-05 20:07 | XMS_ITS | Patient Health Summary ---
Author Organization [facility] Address [address] [place] [address] Care Team Providers Care Whitesmith Name Role Phone Venkatesh Sullivan MD Primary Care Provider [phone] Note from [facility],non-owned Affiliates and Associated Physician Practices is amultiple site organization consisting of ambulatory clinics and hospital sitesin [place], [place], [place] and [place]. This disclosure is being madepursuant to the Care Everywhere program and may not contain all information available regarding this patient. Last updated 18.[facility] Allergies * Contrast-Iodinated Agents For Ct/Other(Old ivp dye from 3204-2583's. No trouble with IV DYE from recent [...] Units subcutaneously 2 times daily. * B Zouynrt-E-Peoww Acid (VITAMIN B COMPLEX WITH C) TABS Take 1 Tab by mouth once daily. * Jessup-3 Fatty Acids (FISH OIL) 300 MG CAPS [...] nitroglycerin (NITROLINGUAL) 0.4 MG/SPRAY spray Dissolve 1 [place] under the tongue every 5 minutes as [...] unchanged. Report dictated by Yrn Alaniz M.D. (vice president residential solar sales). I, Dr. GRIS SO M.D. have personally [...] is normal. The T5 inferior endplate fracture, Y8ahdvnywzh vertebral body fracture, T9 inferior endplate fracture, [...] is unchanged. A compression fracture of the B9wmamnxnnr body with 25% loss of height and [...] unchanged. Report dictated by Yrn Alaniz M.D. (vice president residential solar sales). Dr. GRIS Hawley M.D. have personally reviewed [...] unchanged. Report dictated by Yrn Alaniz M.D. (vice president residential solar sales). Dr. GRIS Hawley M.D. have personally reviewed [...] is normal. The T5 inferior endplate fracture, H3tgqywmbvz vertebral body fracture, T9 inferior endplate fracture, [...] is unchanged. A compression fracture of the Y9fmflnaojd body with 25% loss of height and [...] unchanged. Report dictated by Yrn Alaniz M.D. (vice president residential solar sales). I, Dr. GRIS SO M.D. have personally reviewed and interpreted thisexamination/study. This report was electronically signed by GRIS SO M.D. on 10/06/20169:08 AM . Kev Dickinson MD DIAGNOSTIC IMAGING O RDERABLES * (ABNORMAL) GLUCOSE ACCUCHECK (01/03/2016 4:35 PM CDT) Only the most recent of7 resultswithin the time period is included. Glucose, Fingerstick 256(H) 70-115mg/d L mg/dL [facility] ([place]) Comment:Highballer: AISLINN COLEMAN 01/03/2016 4:35 PM CDT Reggie Mondragon MD LAB - CHEMISTRY SIMI ARAIZA Performing Organization Address City/[facility] Co de Phone Number [facility] * CBC W AUTO DIFFERENTIAL (01/03/2016 5:00 AM CDT) Only the most recent of8 resultswithin the time period is included. Blood specimen (specimen) BLOOD SPECIMEN / Unknown 01/03/2016 5:00 AM CDT Narrative [facility] - 01/03/2016 5:42 AM CDT The following orders were created for panel order CBC w Differential. Procedure Abnormality Status --------- ------ CBC WITH DIFFERENTIAL[[id number]] Abnormal Final result Please view results for these tests on the individual orders. Elvis Jackson MD LAB - HEMATOLOGY SANDY LAL Performing Organization Address City/[facility]/ZIP Co de Phone Number [address] * (ABNORMAL) BASIC METABOLIC PANEL (CALCIUM TOTAL) (01/03/2016 5:00 AM CDT) Only the most recent of4 resultswithin the time period is included. BUN 15 7 - 26 mg/dL [facility] Creatinine 0.8 0.6 - 1.2 mg/dL [facility] Sodium 134(L) 136 - 145 mmol/L [facility] Potassium 3.5 3.5 - 4.5 mmol/L [facility] Chloride 99 98 - 107 mmol/L [facility] CO2 23 22 - 29 mmol/L [facility] Glucose 284(H) 70 - 115 mg/dL [facility] Calcium 8.9 8.4 - 10.2 mg/dL [facility] Anion Gap 16 8 - 18 [facility] BUN/Creatinine Ratio 19 7 - 23 [facility] Osmolality Calculated 289 270 - 300 mOsm/kg [facility] eGFR >60 >60 mL/min/1.7 3 m2 [facility] Blood specimen (specimen) BLOOD SPECIMEN / Unknown 01/03/2016 5:00 AM CDT 01/03/2016 5:17 AM CDT Elvis Jackson MD LAB - CHEMISTRY SIMI ARAIZA [address] [phone] * PHOSPHORUS BLOOD (01/03/2016 5:00 AM CDT) Only the most recent of2 resultswithin the time period is included. Phosphorus 2.4 2.3 - 4.7 mg/dL [facility] Blood specimen (specimen) BLOOD SPECIMEN / Unknown 01/03/2016 5:00 AM CDT 01/03/2016 5:17 AM CDT Elvis Jackson MD LAB - CHEMISTRY SIMI ARAIZA [address] [phone] * MAGNESIUM BLOOD (01/03/2016 5:00 AM CDT) Only the most recent of3 resultswithin the time period is included. Magnesium 1.6 1.6 - 2.6 mg/dL [facility] Blood specimen (specimen) BLOOD SPECIMEN / Unknown 01/03/2016 5:00 AM CDT 01/03/2016 5:17 AM CDT Elvis Jackson MD LAB - CHEMISTRY SIMI ARAIZA [address] [phone] * (ABNORMAL) URINALYSIS W/MICROSCOPIC NO CULTURE (01/01/2016 4:06 PM CDT) Color UA Yellow Straw, Yellow, Colorless, Light Yellow [facility] Clarity UA Clear Clear [facility] Specific [place] UA >1.040(H) 1.001 - 1.030 [facility] pH UA 6.0 5.0 - 8.0 [facility] Protein UA 20 <=20 mg/dL [facility] Glucose UA >1000(A) Negative mg/dL [facility] Ketone UA Trace(A) Negative mg/dL [facility] Bilirubin UA Negative Negative mg/dL [facility] Blood UA Negative Negative [facility] Nitrite UA Negative Negative [facility] Leukocyte Esterase Negative Negative [facility] Urobilinogen UA <2.0 <2.0 mg/dL [facility] RBC UA 2 0 - 8 /HPF [facility] WBC UA 2 0 - 2 /HPF [facility] Squamous Epithelial Cells UA 1 0 - 1 /HPF [facility] Urine specimen (specimen) 01/01/2016 4:06 PM CDT 01/01/2016 4:12 PM CDT Narrative [facility] - 01/01/2016 4:31 PM CDT Specific gravity results confirmed by refractometer. Reggie Mondragon MD LAB - URINALYSIS SANDY LAL [address] [phone] * XR FOOT LEFT 3VW OR MORE (01/01/2016 3:08 PM CDT) Anatomical Region Laterality Modality Ankle / Foot Other Impressions 01/01/2016 4:58 PM CDT IMPRESSION: No acute fracture or dislocation identified. Diffuse osseous demineralization. Dictated by Ludmila Leong MD (vice president residential solar sales). This report was approved by Ludmila Leong [...] osseous demineralization. Dictated by Ludmila Leong MD (vice president residential solar sales). This report was approved by Ludmila Leong [...] dislocation identified. Dictated by Ludmila Leong MD (vice president residential solar sales). This report was approved by Ludmila Leong [...] dislocation identified. Dictated by Ludmila Leong MD (vice president residential solar sales). This report was approved by Ludmila Leong [...] dislocation identified. Dictated by Ludmila Leong MD (vice president residential solar sales). This report was approved by Ludmila Leong [...] dislocation identified. Dictated by Ludmila Leong MD (vice president residential solar sales). This report was approved by Ludmila Leong [...] 2:40 P.M. Dictated by Chino Campos MD (Hairspring Cutter). I, Dr. KESHIA ARREOLA M.D. have personally [...] at 2:40P.M. Dictated by Chino Campos MD (Hairspring Cutter). IDr. KESHIA M.D. have personally reviewed and [...] ZAPATA M.D. on 01/01/20163:45 PM . Reggie Mnodragon MD CT ORDERABLES * XR CHEST 1VW PORTABLE (01/01/2016 1:54 PM CDT) Only the most recent of2 resultswithin the time period is included. Anatomical Region Laterality Modality Chest Other Impressions 01/01/2016 4:55 PM CDT IMPRESSION: No acute pulmonary process. Dictated by Chidi Gongora MD (vice president residential solar sales). This report was approved by Chidi Gongora [...] pulmonary process. Dictated by Chidi Gongora MD (vice president residential solar sales). This report was approved by Chidi Gongora [...] included. PT 12.9 12.1 - 14.8 Seconds [facility] INR 1.0 See Comment [facility] Comment: Suggested therapeutic range for low-intensity coumadin therapy for venous thromboembolism prophylaxis is an INR of 2.0-3.0. For high risk patients (Mitral Valve Prosthesis, Atrial Fibrillation, history of TIA/stroke), suggested prophylactic therapeutic range is an INR of 2.5-3.5. Blood specimen (specimen) BLOOD SPECIMEN / Unknown 01/01/2016 1:41 PM CDT 01/01/2016 1:43 PM CDT Narrative [facility] - 01/01/2016 1:56 PM CDT Is patient on Heparin, Argatroban or Dabigatran?->N Reggie Mondragon MD LAB - COAGULATION OR DERABLES Performing Organization Address [facility]/ZIP Co de Phone Number [address] [phone] * TROPONIN I (01/01/2016 1:41 PM CDT) Only the most recent of5 resultswithin the time period is included. Troponin I <0.010 <0.032 ng/mL [facility] Blood specimen (specimen) BLOOD SPECIMEN / Unknown 01/01/2016 1:41 PM CDT 01/01/2016 1:43 PM CDT Reggie Mondragon MD LAB - CHEMISTRY SIMI ARAIZA [address] [phone] * (ABNORMAL) COMPREHENSIVE METABOLIC PANEL (01/01/2016 1:41 PM CDT) Only the most recent of3 resultswithin the time period is included. BUN 18 7 - 26 mg/dL [facility] Creatinine 0.7 0.6 - 1.2 mg/dL [facility] Sodium 136 136 - 145 mmol/L [facility] Potassium 4.9(H) 3.5 - 4.5 mmol/L [facility] Comment:Hemolysis detected i n this specimen. Hemolysis is known to cause elevations in this analyte. Caution should be exercised in the interpretation of this result. Recommend repeat testing if clinically indicated. Chloride 105 98 - 107 mmol/L [facility] CO2 19(L) 22 - 29 mmol/L [facility] Glucose 410(H) 70 - 115 mg/dL [facility] Calcium 9.2 8.4 - 10.2 mg/dL [facility] Protein Total 6.9 6.0 - 8.3 g/dL [facility] Comment:Hemolysis detected i n this specimen. Hemolysis is known to cause elevations in this analyte. Caution should be exercised in the interpretation of this result. Recommend repeat testing if clinically indicated. Albumin 3.1(L) 3.4 - 5.0 g/dL [facility] Bilirubin Total 0.2 0.2 - 1.2 mg/dL [facility] Alkaline Phosphatase 63 40 - 150 Units/L [facility] ALT 28 0 - 55 Units/L [facility] AST 42(H) 5 - 34 Units/L [facility] Comment:Hemolysis detected i n this specimen. Hemolysis is known to cause elevations in this analyte. Caution should be exercised in the interpretation of this result. Recommend repeat testing if clinically indicated. Anion Gap 17 8 - 18 [facility] BUN/Creatinine Ratio 26(H) 7 - 23 [facility] Osmolality Calculated 301(H) 270 - 300 mOsm/kg [facility] Albumin/Globulin Ratio 0.8(L) 1.1 - 2.3 [facility] eGFR >60 >60 mL/min/1. 73 m2 [facility] Blood specimen (specimen) BLOOD SPECIMEN / Unknown 01/01/2016 1:41 PM CDT 01/01/2016 1:43 PM CDT Reggie Mondragon MD LAB - CHEMISTRY SIMI ARAIZA [address] [phone] * (ABNORMAL) LIPASE BLOOD (01/01/2016 1:41 PM CDT) Lipase 87(H) 8 - 78 Units/L [facility] Blood specimen (specimen) BLOOD SPECIMEN / Unknown 01/01/2016 1:41 PM CDT 01/01/2016 1:43 PM CDT Reggie Mondragon MD LAB - CHEMISTRY SIMI ARAIZA Performing Organization Address [facility] Co de Phone Number [address] [phone] * CK + CKMB PANEL (01/01/2016 1:41 PM CDT) CK Total 53 30 - 200 Units/L [facility] CK-MB 1.2 0.0 - 6.6 ng/mL [facility] Blood specimen (specimen) BLOOD SPECIMEN / Unknown 01/01/2016 1:41 PM CDT 01/01/2016 1:43 PM CDT Reggie Mondragon MD LAB - CHEMISTRY SIMI ARAIZA [address] [phone] * AMYLASE BLOOD (01/01/2016 1:41 PM CDT) Amylase 59 25 - 125 Units/L [facility] Blood specimen (specimen) BLOOD SPECIMEN / Unknown 01/01/2016 1:41 PM CDT 01/01/2016 1:43 PM CDT Reggie Mondragon MD LAB - CHEMISTRY SIMI ARAIZA [facility] [address] [phone] * TYPE + SCREEN PANEL (01/01/2016 1:40 PM CDT) Only the most recent of2 resultswithin the time period is included. Typem A POS [facility] Antibody Screen NEG [facility] Blood specimen (specimen) 01/01/2016 1:40 PM CDT 01/01/2016 1:51 PM CDT Elvis Jackson MD LAB - BLOOD BANK ORD ERABLES Performing Organization Address [facility] Co de Phone Number [facility] [address] * CREATININE BLOOD - POCT (IP) [facility] (01/01/2016) [facility] Creatinine POCT 0.57 0.3 - 1.3 mg/dL [facility] eGFR POCT 60 60 ml/min [facility] 01/01/2016 Elvis Jackson MD LAB - POINT OF CARE ORDERABLES Performing Organization Address [facility] Co de Phone Number [facility] * EKG 12-LEAD (01/01/2016 12:00 AM CDT) Only the most recent of3 resultswithin the time period is included. Pathologist [facility] EKG [facility] Comment: Exam Date/Time: Jan 01 2016 [...] present Confirmed by MD Mallory, Sam ([id number]), development editor ABHINAV KEITH ([id number]) on 01/22/2016 6:47:08 PM Referred By: REFERRING NO Confirmed By:Sam Tejada MD 01/01/2016 Reggie Mondragon MD ECG ORDERABLES [facility] * PTT [facility] (08/21/2015 6:55 AM [employer]) APTT 25.6 23.0 - 38.4 Seconds [facility] Comment:Suggested therapeuti c range for full dose I.V. heparin therapy for venous thromboembolism is 66.0-91.0 seconds. Blood specimen (specimen) BLOOD SPECIMEN / Unknown 08/21/2015 6:55 AM [employer] 08/21/2015 7:15 AM [employer] Narrative [facility] - 08/21/2015 7:29 AM [employer] Is patient on Heparin, Argatroban or Dabigatran?->N Doug Aviles MD LAB - COAGULATION ORDERABLES [address] [phone] * (ABNORMAL) CBC W/O DIFFERENTIAL (08/21/2015 6:55 AM [employer]) WBC 12.5(H) 3.5 - 10.5 10 3/uL [facility] RBC 5.14(H) 3.90 - 5.00 10 6/uL [facility] Hemoglobin 14.7 12.0 - 15.5 g/dL [facility] Hematocrit 44.5 35.0 - 45.0 % [facility] MCV 86.6 81.0 - 97.0 fL [facility] MCH 28.6 28.0 - 34.0 pg [facility] MCHC 33.0 32.0 - 36.0 g/dL [facility] Platelet Count 359 150 - 400 10 3/uL [facility] RDW-SD 45.1 36.0 - 50.0 fL [facility] RDW-CV 14.5 11.2 - 14.8 % [facility] MPV 9.7 9.3 - 12.8 fL [facility] nRBC Absolute 0.00 0 10 3/uL [facility] nRBC Auto 0.0 0 /100 WBC [facility] Blood specimen (specimen) BLOOD SPECIMEN / Unknown 08/21/2015 6:55 AM [employer] 08/21/2015 7:15 AM [employer] Doug Aviles MD LAB - HEMATOLOGY O RDERABLES [address] [phone] * CT BRAIN STROKE PROTOCOL (08/21/2015 6:51 AM [employer]) Anatomical Region Laterality Modality Head Other Impressions 08/21/2015 7:26 AM [employer] IMPRESSION: 1. No acute intracranial hemorrhage, significant mass effect, or midline shift. Preliminary results reported by Dr. Mccormick to Dr. Wright on 08/21/2015 at 7:07 AM. This report was electronically signed by HUGO DUBOSE M.D. on 08/21/2015 7:26 AM . Narrative 08/21/2015 7:26 AM [employer] EXAMINATION: Computed tomography (CT) of the head [...] OF CARE (AMB) [facility] (08/21/2015 6:46 AM [employer]) Only the most recent of2 resultswithin the time period is included. Doug Aviles MD LAB - POINT OF CAR E ORDERABLES [facility] * CULTURE URINE (04/30/2014 4:31 PM CDT) Only the most recent of2 resultswithin the time period is included. Culture Urine Less than 10,000 CFU/ML of Normal Urogenital/ Skin Franny after 48 Hours [facility] Comment:. Urine specimen (specimen) URINE SPECIMEN OBTAINED BY CLEAN CATCH PROCEDURE / Unknown 04/30/2014 4:31 PM CDT 04/30/2014 9:40 PM CDT Narrative [facility] - 05/02/2014 11:09 AM CDT ZeeshanSpecwongn#[id number] Zeeshan Loc/Rm/Bed: ICU/ICU/05 CLN CATCH U Historical Provider LAB - MICROBIOLOG Y ORDERABLES [facility] [address] [place] [address] * CARDIAC RHYTHM STRIP ORDER (02/18/2012 4:55 [...] DK YELLOW [facility] Character UA CLOUDY [facility] Specific [place] UA 1.031(H) 1.005 - 1.03 [facility] pH UA 5.0 4.6 - 8.0 pH Units [facility] Leukocyte UA SMALL Negative /ul [facility] Nitrite UA NEGATIVE Negative [facility] Protein UA NEGATIVE Negative mg/dL [facility] Glucose UA NEGATIVE Normal mg/dL [facility] Ketone UA TRACE Negative mg/dL [facility] Urobilinogen UA 0.2 Normal Lu Units [facility] Bilirubin UA Negative Negative mg/dL [facility] Blood UA NEGATIVE Negative /ul [facility] WBC UA 10-20(H) <5 /HPF [facility] RBC UA 2-5 <5 /HPF [facility] Epithelial Cell UA 2-5 <5 /HPF [facility] Casts UA 20-50 hyaline(H) <2 /LPF [facility] Bacteria UA Many [facility] Urine Culture Reflex to culture, /a [id number] [facility] Urine specimen (specimen) URINE SPECIMEN OBTAINED BY CLEAN CATCH PROCEDURE / Unknown 02/16/2012 5:32 PM CDT 02/16/2012 5:32 PM CDT Jackson Turner DO LAB - URINALYSIS ORD ERABLES Performing Organization Address [facility] Co de Phone Number [facility] [address] [place] [address] * MYOGLOBIN BLOOD (02/16/2012 1:56 PM CDT) Myoglobin 36 <50.0 ng/mL [facility] Blood specimen (specimen) BLOOD SPECIMEN / Unknown 02/16/2012 1:56 PM CDT 02/16/2012 1:56 PM CDT Jackson Turner DO LAB - CHEMISTRY ORDE RABLES Performing Organization Address [facility] Co de Phone Number [facility] [address] [place] [address] * (ABNORMAL) PTT (02/16/2012 1:56 PM CDT) Only the most recent of2 resultswithin the time period is included. PTT <21.0(L) 24.0 - 32.0 seconds [facility] Blood specimen (specimen) BLOOD SPECIMEN / Unknown 02/16/2012 1:56 PM CDT 02/16/2012 1:56 PM CDT Jackson Turner DO LAB - COAGULATION OR DERABLES Performing Organization Address [facility] Co de Phone Number [facility] [address] [place] [address] * PT-INR (02/16/2012 1:56 PM CDT) PT 10.4 9.4 - 11.2 seconds [facility] INR 1.0 SEE BELOW [facility] Comment: 0.9-1.1 Normal 2.0-3.0 Conventional 2.5-3.5 Intensive Blood specimen (specimen) BLOOD SPECIMEN / Unknown 02/16/2012 1:56 PM CDT 02/16/2012 1:56 PM CDT Jackson Turner DO LAB - COAGULATION OR DERABLES Performing Organization Address [facility] de Phone Number [facility] [address] [place] [address] * CARDIAC PROCEDURE ORDER (09/16/2011 1:55 PM [employer]) Narrative Transcriptions Document, Scanned - 09/16/2011 1:55 PM CST Scanned Document CARDIAC SERVICES ORD ERABLES * (ABNORMAL) GLUCOSE - POINT OF CARE (09/15/2011 11:33 AM [employer]) Only the most recent of4 resultswithin the time period is included. Pathologist [facility] Glucose WB/POC 193(H) 75 - 110 mg/dl [facility] BLOOD SPECIMEN / Unknown 09/15/2011 11:33 AM [employer] 09/16/2011 5:10 AM [employer] Marbella Marrero MD LAB - POINT OF CARE ORDERABLES Performing Organization Address [facility] de Phone Number [facility] [address] [place] [address] * IP CONSULT TO CARDIOPULMONARY REHABILITATIO (09/15/2011 8:25 AM [employer]) Narrative Nasra Arvizu RN - 09/15/2011 8:25 AM [employer] Nasra Arvizu RN 09/15/2011 8:25 AM Cardiac [...] CONSULT TO PASTORAL CARE (09/14/2011 7:56 PM [employer]) Narrative Seamus Sethi - 09/14/2011 7:56 PM [employer] Seamus Sethi 09/14/2011 7:56 PM Provided patient with a copy of the AD booklet. Patient to review later Procedure Note Seamus Sethi - 09/14/2011 7:55 PM CST Provided patient with a copy of the AD booklet. Patient to review later Marbella Marrero MD INPATIENT ANCILLARY CONSULT * (ABNORMAL) ACT - POINT OF CARE (09/14/2011 4:09 PM [employer]) Only the most recent of2 resultswithin the time period is included. ACT POCT 244(A) 125 - 187 Seconds [facility] POCT TESTING QC Verified yes Yes [facility] POC T TESTING Blood specimen (specimen) BLOOD SPECIMEN / Unknown 09/14/2011 4:09 PM [employer] Marbella Marrero MD LAB - POINT OF CARE ORDERABLES [facility] POCT TESTING [address] [place] [address] * Cardiac Cath Report-Epic Generated (09/14/2011 3:49 PM [employer]) Narrative Marbella Marrero MD - 09/14/2011 3:49 PM [employer] Marbella Marrero MD 09/14/2011 3:49 PM Elida [id number] Opened total rca director account management>3 months and placed 3 LANIE Asa for life plavix x 1 yr Procedure Note Marbella Marrero MD - 09/14/2011 3:48 PM CST Elida [phone] Opened total rca director account management>3 months and placed 3 LANIE Asa for life plavix x 1 yr Marbella Marrero MD CARDIAC SERVICES ORD ERABLES * CARDIAC CATH CONSULT (09/14/2011) 09/14/2011 Narrative Transcriptions Marbella Marrero MD - 09/15/2011 12:35 PM CST [facility] Cardiac Cath [facility] CARDIAC CATHETERIZATION PATIENT: OSVALDO RAE [facility]#: [id number] ADMIT DATE: 09/14/2011T#: [id number] PROCEDURE DATE: 09/14/2011DOB: 1945 PHYSICIAN: NANCY VinesM: [...] a year. MARBELLA MARRERO MD UQ/PM #: [id number] CC:MD PETER HARDIN MD MEDICAL/SURGICAL CARDIAC CATHETERIZATION - [facility] Marbella Marrero MD ECHO ORDERABLES [facility] Care Teams Whitesmith Relationship Specialty Start Date End Date Venkatesh Sullivan MD [address] [place] [address] PCP - General 01/13/18
--- OUTSIDE RECORDS SUMMARY | 2024-09-05 20:07 | XMS_ITS | Continuity of Care Document ---
Author Organization [facility] Address [address] [place] [address] Phone Care Team Providers Care Financial Planner Name Role Phone Justin Walden Unavailable Unavailable Procedures Procedure Date Post-op Follow-up Visit Remove Cataract, Insert Lens Office/outpatient Visit, Est IOLMaster Eye Exam, New Patient Refraction Advance Directives Directive Yes / No Effective Date File Name No Information Encounters Encounter Description Practice Location Reason(s) For Visit Diagnoses Date Provider Providers Copied on Encounter [facility], [address] [place] [address] [address], [place], [place], [id number], tel:[phone] [facility] No Information 0 Win Anderson. [address] [facility] [address] [facility] , [address], [place], [place], [facility], . tel:[phone] [facility], [address] [place] [address] [address], [place], [place], [id number], [place] tel:[phone] [facility] No Information 0 Win Anderson. [address] [facility] [address] , [address], [place], [place], [facility], [place]. tel:[phone] Office/outpat ient Visit, Est [facility], [address] [place] [address] [address], [place], [place], [id number], [place] tel:[phone] [facility] No Information 9-201 0 Win Anderson. [facility] , [address], [place], [place], [facility], [place]. tel:[phone] Referring Provider: Justin Ferrari, [facility] [address], [place], [place], [facility]. tel:[phone] [facility], [address], [place], [place], [id number], tel:[phone] [facility] No Information 2-201 0 Ángel Ambriz. [facility] [address], [place], [place], [facility], [place]. tel:[phone] Family History Family Member Type Diagnosis Age At Onset No Information Payers Payer name Insurance type Covered green party ID Authoriza tion(s) No Information Social History [...]
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
--- OUTSIDE RECORDS SUMMARY | 2024-09-05 20:07 | XMS_ITS | Clinical Summary ---
Author Organization [facility] Address [facility] [place] [address] Care Team Providers Care Skilled Nursing Facilities Professional Name Role Phone Unavailable Primary Care Provider [...]
--- OUTSIDE RECORDS SUMMARY | 2024-09-05 20:07 | XMS_ITS | Encounter Summary ---
Author Organization [facility] Healthcare Address [address] [place] [address] Care Team Providers Care Field Mechanic/Site Lead Name Role Phone Murphy Diaz MD, Shade Monson Unavailable [phone] Juanpablo Reinoso MD Unavailable Ritesh Guardado MD Unavailable Duke Dunlap MD Unavailable Venkat Laguerre MD Unavailable Annette Dailey NP Primary Care Provider [phone] Jam Le MD Unavailable [phone] Miscellaneous, Not In File Unavailable Unava ilable Esther Martínez MA Unavailable Unavailable Lesvia Aranda MA Unavailable [phone] Esther Martínez MA Unavailable Unavailable Neda Hanson MA Unavailable Encounter Details Date Type Department Care Team (Late st Contact Info) Description 09/09/2023 Orders Only [facility] Health Information Management [address] [place] [address] Gurinder Vasquez MD [address] [place] [address] [place] [address] Social History Tobacco Use Types Packs/Day Years [...] often do you attend chur ch or sabianist services? More than 4 times per year 10/02/2021 Do you belong to any clubs o r organizations such as rastafarian groups, unions, fraternal or athletic groups, or [...] place to sleep or slept in a fci (including now)? 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 Not on file Not on file Not [...] documented as of this encounter Care Teams Field Mechanic/Site Lead Relationship Specialty Start Date End Date Annette Dailey NP [address] [facility] [address] [place] [address] PCP - General Internal Medicine 11/23/22 Shade Arrington Jr., MD [address] [place] [address] Consulting Physician Cardiovascular Disease 09/07/20 Juanpablo Reinoso MD [address] [place] [address] Consulting Physician Cardiovascular Disease 12/13/20 Ritesh Guardado MD [address] [place] [address] Referring Physician Cardiovascular Disease 12/26/20 [place] [address] [address] Surgeon Orthopedic Surgery 12/26/20 [place] [address] [address] [address] Consulting Physician Gastroenterology 12/26/20 Jam Le MD [address] [place] [address] Consulting Physician Cardiology 11/29/23 Miscellaneous, Not In File 11/29/23 Esther Martínez MA [address] [place] [address] [address] [place] [address] [employer] Care Senior Communications Specialist 12/14/23 12/14/23 Lesvia Aranda MA [address] [place] [address] [address] [place] [address] ACO Care Senior Communications Specialist 12/14/23 01/09/24 Esther Martínez MA [address] [facility] [address] [place] [address] ACO Care Senior Communications Specialist 07/05/24 07/09/24 Neda Hanson MA [address] [facility] [address] [place] [address] ACO Care Senior Communications Specialist 08/24/24 08/24/24 documented as of this encounter
== END 2024-09-05 19:54 | disposition left against medical advice (07) ==
PROVIDERS: Emergency Provider Student in an Organized Health Care Education/Training Program; PCP Nurse Practitioner Family
DX: R53.1 Weakness (principal)
CPT/HCPCS: 93005; 99199

== ENCOUNTER 2024-10-15 16:02 | Emergency (ER) | payer MEDICARE, MEDICAID, SELFPAY ==
--- NOTE | 2024-10-15 16:04 | ED_ITS ---
HPI - Extremity Injury (Upper) General Chief Complaint: Extremity Problem,Nontraumatic Stated Complaint: Right Shoulder/Arm Pain Time Seen by Provider: 10/15/24 16:03 Source: patient Mode of arrival: ambulatory Limitations: no limitations History of Present Illness HPI narrative: Patient is a 79-year-old female who presents with 2 days pain shooting from right shoulder down the arm. Patient states she has history of pinched nerve that was fixed cervical fusion. States since then she has always had right upper extremity weakness. Denies any numbness to right arm. Denies any chest pain or shortness breath. Does report mild pain when turning head to the right. Related Data Home Medications ?Medication ?Instructions ?Recorded ?Confirmed ?Last Taken ?Type atorvastatin 20 mg tablet 20 mg PO HS 09/26/19 10/15/24 07/29/22 History dapagliflozin propanediol 10 mg 10 mg PO DAILY 09/18/20 10/15/24 07/29/22 History tablet (Farxiga) ezetimibe 10 mg tablet 10 mg PO DAILY 09/18/20 10/15/24 07/29/22 History icosapent ethyl 1 gram capsule 2 g PO BID 09/18/20 10/15/24 07/29/22 History (Vascepa) pantoprazole 40 mg tablet,delayed 40 mg PO DAILY 10/03/20 10/15/24 07/29/22 History release dicyclomine 20 mg tablet 20 mg PO QID 04/23/21 10/15/24 07/29/22 History furosemide 40 mg tablet 40 mg PO QAM 04/23/21 10/15/24 07/29/22 History ticagrelor 90 mg tablet (Brilinta) 90 mg PO BID 05/03/21 10/15/24 07/29/22 History buspirone 5 mg tablet 2.5 mg PO BID 04/02/22 10/15/24 07/29/22 History methimazole 5 mg tablet 10 mg PO DAILY 04/02/22 10/15/24 07/29/22 History metoprolol succinate 25 mg 25 mg PO DAILY 04/02/22 10/15/24 07/29/22 History tablet,extended release 24 hr potassium chloride 20 mEq 20 meq PO DAILY 04/02/22 10/15/24 07/29/22 History tablet,extended release(part/cryst) (Klor-Con M) sertraline 100 mg tablet 100 mg PO HS 04/02/22 10/15/24 07/29/22 History rivaroxaban 2.5 mg tablet (Xarelto) 2.5 mg PO BID 01/29/23 10/15/24 Unknown History alprazolam 0.5 mg tablet 0.5 mg PO DAILY PRN anxiety 06/30/24 10/15/24 Unknown History clopidogrel 75 mg tablet 75 mg PO DAILY 06/30/24 10/15/24 Unknown History furosemide 20 mg tablet 20 mg PO HS 06/30/24 10/15/24 Unknown History Allergies Allergy/AdvReac Type Severity Reaction Status Date / Time ranolazine Allergy Intermediate Unknown Verified 10/15/24 16:06 gabapentin Allergy Mild Confusion Verified 10/15/24 16:06 cyclobenzaprine Allergy Unknown Unknown Verified 10/15/24 16:06 fentanyl Allergy Unknown Unknown Verified 10/15/24 16:06 ciprofloxacin (From Cipro) Allergy Unknown Verified 10/15/24 16:06 doxycycline Allergy Unknown Verified 10/15/24 16:06 Penicillins Allergy Anaphylaxis Verified 10/15/24 16:06 Review of Systems Review of Systems: All systems reviewed & are unremarkable except as noted in HPI and below Constitutional: Constitutional: Denies body ache(s), Denies chills, Denies fatigue, Denies fever(s), Denies headache(s), Denies malaise and Denies weakness Eyes: Eyes: Denies blurry vision, Denies irritation and Denies loss of vision ENT: Denies otalgia, Denies headache(s), Denies nasal discharge, Denies sinus pain and Denies sore throat Cardiovascular: Cardiovascular: Denies chest pain, Denies irregular heart rhythm and Denies dyspnea Respiratory: Respiratory: Denies dyspnea Gastrointestinal: Gastrointestinal: Denies abdominal pain, Denies melena, Denies hematochezia, Denies diarrhea, Denies nausea and Denies vomiting Musculoskeletal: Musculoskeletal: Denies back pain, Denies myalgias and Reports arthralgias Integumentary/Breasts: Skin/Breast: Denies pruritus and Denies rash Neurologic: Denies headache(s), Denies loss of vision and Denies weakness Psychiatric: Psychiatric: Reports no additional psychiatric complaints Endocrine: Endocrine: Denies fatigue PMFSH Past Medical History Medical History Back contusion Depression with anxiety Anemia Hypothyroidism Anxiety Depression Back pain Fibromyalgia UTI (urinary tract infection) Kidney stones GERD (gastroesophageal reflux disease) Crohn's disease IBS (irritable bowel syndrome) DVT (deep venous thrombosis) Gastrointestinal ulcer Colitis HLD (hyperlipidemia) CHF (congestive heart failure) History of angina TIA (transient ischemic attack) Cataracts, bilateral CAD (coronary artery disease) HTN (hypertension) Diabetes mellitus Surgical History Surgical History History of loop recorder S/P peripheral artery angioplasty with stent placement H/O heart artery stent H/O cataract extraction History of right knee joint replacement Hx of spinal surgery History of bladder surgery History of hysterectomy Hx of cholecystectomy Hx of appendectomy Hx of cardiac catheterization Hx of CABG Family History Family History Father Cerebrovascular accident, Onset Age: 62 Family history of coronary artery disease Family history of alcoholism Acute myocardial infarction, Onset Age: 62 Patient's father is Mother Cerebrovascular accident, Onset Age: 84 Family history of coronary artery disease Family history of diabetes mellitus in first degree relative Asthma Family history of congestive heart failure Family history of heart disease in male family member before age 55 Diabetes mellitus, Onset Age: 84 Family history of gastrointestinal disorder, Onset Age: 84 Family history of cardiovascular disease, Onset Age: 84 Patient's mother is Sibling Family history of thyroid disease Diabetes mellitus Carcinoma of colon Patient's sister is Other Family history of kidney disease Hypertension Social History Social History Social History: Lives at home with her , grandson. Lifelong nonsmoker. Denies alcohol or drug use. Full code. 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 Lifelong nonsmoker. Does not use any alcohol marijuana or illicit drugs. Her oldest daughter Eli is a durable power assistant county attorney for healthcare Code status full code Smoking status: Never smoker Second hand tobacco smoke exposure: No Alcohol intake: never Substance use: never Substance use type: does not use Do You Feel Safe in your Home?: Yes Lack of Transportation: No Lack of Food: Never True Current Housing: I Have Housing Concerned About Future Housing: No Difficulty Paying Gas/Electric Bills: No Difficulty Paying for Meds: No Currently Unemployed: No Education: Decline to Answer Difficulty w/ Childcare or Family Care: No Gender identity (if verbalized by the patient): Female Sexual Orientation (if Verbalized by the Patient): Straight or Heterosexual Spiritual care concerns: No Comments At time of signature, agree with nursing past medical, surgical, social and family history. There is no relevant family history pertinent to the presenting complaint. Exam Const: General: cooperative, healthy appearing, comfortable, no acute distress and well nourished Nutritional Appearance: well nourished Orientation/consciousness: patient oriented x3 Limitations: no limitations HENMT: Head: normal to inspection, normocephalic and atraumatic Ears: hearing grossly normal bilaterally and external ears normal Face/Nose/Sinus: Normal external nose present, normal facial exam and face symmetric Face and sinus: normal facial exam and face symmetric Mouth: Yes lip normal Eyes: General: appearance normal, both eyes and all related structures Alignment and Position: alignment normal and position normal Periorbital: periorbital findings normal Eyelids: eyelids normal Pupils: Equal, round and reactive pupils present EOM: EOMs intact bilaterally Neck: Neck: normal visual inspection, full ROM and supple Chest: Chest palpation & inspection: normal inspection of the chest Resp: Effort & Inspection: normal respiratory effort and able to speak in complete sentences Auscultation: clear to auscultation bilaterally Cardio: Rate: regular rate Rhythm: regular rhythm Heart sounds: S1 normal heart sound present and S2 normal heart sound present GI: Inspection: normal to inspection Skin: General skin exam: normal color and no rashes or lesions noted Neuro: General: patient oriented x3 and moves all extremities Cranial nerves: Yes Equal, round and reactive pupils present Speech: normal speech Gait exam (Neuro): Normal gait present Extrem: General: normal to inspection, full ROM and no edema Right upper extremity: shoulder/upper arm normal to inspection, axillary nerve sensory funct ion normal and abnormal ROM pain with active ROM in ABduction, in extension and in flexion; but not in ADduction; no tenderness, no swelling, no ecchymosis, no deformity and no unusual warmth and elbow/forearm normal to inspection, normal ROM and distal pulses intact; no tenderness and no swelling Psych: Appearance: grossly normal and well kempt Mental Status: mental status grossly normal Speech and movement: Normal speech and movement present Affect: normal affect Attitude: cooperative Thought process: Normal thought process present Course Course Emergency Course: Patient is aware of diagnosis, understands and agrees to treatment plan. Anticipatory guidance given. Patient agrees to follow-up as directed and is aware of reasons to seek care at the emergency department. Portions of this record may have been created with voice recognition software Level of Care: Express Care Visit Vital Signs Vital signs: Vital Signs Temperature 36.0 C L 10/15/24 16:15 Pulse Rate 78 10/15/24 16:15 Respiratory Rate 16 10/15/24 16:15 Blood Pressure 176/56 H 10/15/24 16:15 Pulse Oximetry 97 10/15/24 16:15 Oxygen Delivery Room Air 10/15/24 16:15 Temperature 36.0 C L 10/15/24 16:15 Pulse Rate 78 10/15/24 16:15 Respiratory Rate 16 10/15/24 16:15 Blood Pressure 176/56 H 10/15/24 16:15 Pulse Oximetry 97 10/15/24 16:15 Oxygen Delivery Room Air 10/15/24 16:15 Reviewed MDM - Extremity Injury (Upper) MDM Narrative Medical decision making narrative: Pt well hydrated appearing, in no respiratory distress, hemodynamically stable. Recommend supportive care. The patient is stable at time of discharge the clinical impression was discussed and the patient was given the opportunity to ask questions, which were addressed as completely as possible given the information available at present. Anticipatory guidance and return to care precautions were discussed and the importance of primary care follow-up was stressed and encouraged. The patient voiced understanding of the plan, indications to return, and the need for follow-up. Exam findings show no acute concerns or changes Patient is appropriate for outpatient treatment and follow-up. Differential Diagnosis Differential diagnosis: Likely dislocation of shoulder, fracture of clavicle and other (Cervical radiculopathy, cervical strain, shoulder strain, less likely cardiac involvement) Medical Records Attestation: I reviewed the patient's medical records. Discharge Plan Discharge Clinical Impression: Cervical radiculopathy Patient Disposition: Home, Self-Care Condition: Stable Instructions: Cervical Radiculopathy (ED) Additional Instructions: Take steroids in the morning with food. Take muscle relaxers every 8 hours as needed for muscle spasm. do not drive or make any important decisions while on this medication for it can make you drowsy Exercise:Combine aerobic exercise, like walking or swimming, with specific exercises to keep the muscles in your back and abdomen strong and flexible.bed rest is not recommended. Proper Lifting:Be sure to lift heavy items with your legs, not your back. Do not bend over to pick something up. Keep your back straight and bend at your knees. Weight:Maintain a healthy weight. Being overweight puts added stress on your lower back. Avoid Smoking:Both the smoke and the nicotine cause your spine to age faster than normal. Proper Posture:Good posture is important for avoiding future problems. A erapist can teach you how to safely stand, sit, and lift. Use warm moist heat or ice to help with pain. Follow up with Primary provider in 2-3 days, This may become a chronic condition and they will be the one to help manage your pain and order additional testing. Keep neurology appointment in October. Follow-up with your doctor for further care and evaluation or seek ER if you develop problems with increased pain,increased weakness or loss of feeling in one or both of your arms. Your blood pressure was elevated above 120/80 today at Urgent Care. This puts you above the threshold for follow up visit with a primary care provider. High blood pressure does not usually cause any symptoms, however it may lead to kidney failure, stroke, heart disease just to name a few if untreated . Many people are anxious when seeing a provider or nurse. As a result, you are not diagnosed with hypertension at this time unless your blood pressure is persistently high at two office visits at least one week apart. Some things that can help lower blood pressure are lifestyle modifications, such as light exercise, decreased salt in diet, and weight loss. It is important to follow up with a PCP about this within 1 week. Patient Language: Kazakh Prescriptions: New prednisone 20 mg tablet See Rx Instructions .ROUTE .COMPLEX Qty: 9 0RF Rx Instructions: 40 mg daily x3 days, 20 mg daily x3 days baclofen 10 mg tablet 10 mg PO TID 5 Days Qty: 15 0RF No Action Brilinta 90 mg tablet 90 mg PO BID buspirone 5 mg tablet 2.5 mg PO BID sertraline 100 mg tablet 100 mg PO HS potassium chloride [Klor-Con M20] 20 mEq tablet,ER particles/crystals 20 meq PO DAILY methimazole 5 mg tablet 10 mg PO DAILY metoprolol succinate 25 mg tablet extended release 24 hr 25 mg PO DAILY Xarelto 2.5 mg tablet 2.5 mg PO BID dicyclomine 20 mg tablet 20 mg PO QID furosemide 40 mg tablet 40 mg PO QAM (DME) Comfort EZ Pen [place] 33 gauge x 5/16 needle See Rx Instructions .ROUTE .MEDSUPPLY Qty: 400 3RF Rx Instructions: four times daily atorvastatin 20 mg tablet 20 mg PO HS ezetimibe 10 mg tablet 10 mg PO DAILY icosapent ethyl [Vascepa] 1 gram capsule 2 g PO BID dapagliflozin propanediol [Farxiga] 10 mg tablet 10 mg PO DAILY clopidogrel 75 mg tablet 75 mg PO DAILY furosemide 20 mg tablet 20 mg PO HS alprazolam 0.5 mg tablet 0.5 mg PO DAILY PRN (Reason: anxiety) pantoprazole 40 mg tablet,delayed release (DR/EC) 40 mg PO DAILY Follow-up/Referrals: Ashlie,DIAN Bryant [Primary Care Provider] - 3 Days Time of Disposition: 16:29
[2024-10-15 16:15] VITALS: BP 176/56; PULSE 78; RESP 16; TEMP 36; O2SAT 97
== END 2024-10-15 16:35 | disposition home or self-care (01) ==
PROVIDERS: Emergency Provider Nurse Practitioner Family; PCP Nurse Practitioner Family
DX: M54.12 Radiculopathy, cervical region (principal); E03.9 Hypothyroidism, unspecified; K50.90 Crohn's disease, unspecified, without complications; E78.5 Hyperlipidemia, unspecified; I11.0 Hypertensive heart disease with heart failure; I50.9 Heart failure, unspecified; E11.9 Type 2 diabetes mellitus without complications; I25.110 Atherosclerotic heart disease of native coronary artery with unstable angina pectoris; M79.7 Fibromyalgia; K21.9 Gastro-esophageal reflux disease without esophagitis; F41.9 Anxiety disorder, unspecified; F32.A Depression, unspecified; Z86.73 Personal history of transient ischemic attack (TIA), and cerebral infarction without residual deficits; Z95.5 Presence of coronary angioplasty implant and graft; Z96.651 Presence of right artificial knee joint; Z79.01 Long term (current) use of anticoagulants; Z95.820 Peripheral vascular angioplasty status with implants and grafts
CPT/HCPCS: 99213; G0463